=== PATIENT | female | born 1955 | race Caucasian/White ===

== ENCOUNTER 2021-12-04 13:50 | Outpatient (CLI) | payer MEDICARE, BC, SELFPAY ==
[2021-12-04 12:28] LABS: HCT 40.1 % (36.0-46.0); HGB 13.5 g/dL (11.2-15.7); MCH 33.1 pg (27.0-33.0); MCHC 33.7 % (32.0-36.0); MCV 98 fL (80-95); MPV 9.3 fL (8.0-11.0); Platelet Count 102 10^3/uL (130-400); RBC 4.08 10^6/uL (3.93-5.22); RDW 14.9 % (11.7-14.6); RDW-SD 54.2 fL
[2021-12-04 12:32] LABS: Absolute Lymphocyte Count 0.41 10^3/uL (1.2-3.4); Absolute Monocyte Count 0.41 10^3/uL (0.1-0.8); Absolute Neutrophil Count 12.97 10^3/uL (1.2-6.7); Atypical Lymphocytes % 1; Bands % 2; Diff Comment Manual Differential; RBC Morphology Normal
[2021-12-04 12:36] LABS: Ammonia < 10 umol/L (11-32)
[2021-12-04 12:39] LABS: ALT 42 U/L (14-59); AST 18 U/L (15-37); Albumin 3.1 g/dL (3.4-5.0); Alkaline Phosphatase 57 U/L (46-116); Anion Gap 4.9 mmol/L (3-11); BUN 25 mg/dL (7-18); Bilirubin, Total 0.4 mg/dL (0.2-1.0); CO2 31.1 mmol/L (21.0-32.0); CREATININE 0.6 mg/dL (0.55-1.02); Calcium 8.5 mg/dL (8.5-10.1); Chloride 100 mmol/L (98-107); Estimated GFR 97.71 (mL/min/1.73m2); Glucose 92 mg/dL (74-106); Potassium 4.1 mmol/L (3.5-5.1); Sodium 136 mmol/L (136-145); Total Protein 6.1 g/dL (6.4-8.2)
[2021-12-04 12:44] LABS: VALPROIC ACID 62.4 ug/mL
--- OUTSIDE RECORDS SUMMARY | 2021-12-04 13:54 | XMS_ITS | Encounter Summary ---
:1955 Author Organization [facility] [place] [address] Care Team Providers Name Role Phone Viki Elaine Primary Care Provider [phone] Encounter Details Date Type Department Care Team Description 12/03/2021 TH Visit Hematology and Oncology Deion Baumann MD Glioblastoma (TeleHealth) at [facility] [place] [address] [place] [address] [phone] (Wo rk) Social History Tobacco Use Types Packs/Day Years Used Date Never Smoker Smokeless Tobacco: Never Used Alcohol Use Standard Drinks/Week Comments Not Currently 0 (1 standard drink = 0.6 oz pure alcoho l) rarely Alcohol Habits Answer Date Recorded How often do you have a drink containing alcohol? Not asked How many drinks containing alcohol do you have on a typical Not asked day when you are drinking? How often do you have six or more drinks on one occasion? No t asked Comment: rarely 01/07/2021 Financial Resource Strain Answer Date Recorded How hard is it for you to pay for the very basics like Not h keke at all 10/21/2021 food, housing, medical care, and heating? Food Insecurity Answer Date Recorded Within the past 12 months, you worried that your food would Never true 10/21/2021 run out before you got money to buy more. Within the past 12 months, the food you bought just didn't N ever true 10/21/2021 last and you didn't have money to get more. Transportation Needs Answer Date Recorded In the past 12 months, has lack of transportation kept you f rom No 10/21/2021 medical appointments or from getting medications? In the past 12 months, has lack of transportation kept you f rom No 10/21/2021 meetings, work, or getting things needed for daily living? Housing Stability Answer Date Recorded In the last 12 months, was there a time when you were not ab le No 10/21/2021 to pay the mortgage or rent on time? In the last 12 months, how many places have you lived? 1 10/21/2021 In the last 12 months, was there a time when you did not hav e a No 10/21/[address] or slept in a snf (including now)? Sex Assigned at Date Recorded Not on file documented as of this encounter Last Filed Vital Signs Vital Sign Reading Time Taken Comments Blood Pressure 114/60 12/03/2021 10:03 AM EDT Pulse 70 12/03/2021 10:03 AM EDT Temperature 35.6 ??C (96 ??F) 12/03/2021 10:03 AM EDT Respiratory Rate 18 12/03/2021 10:03 AM EDT Oxygen Saturation 99% 12/03/2021 10:03 AM EDT Inhaled Oxygen Concentration - - Weight 68.3 kg (150 lb 9.6 oz) 12/03/2021 10:03 AM EDT Height 160.4 cm (5' 3.15) 12/03/2021 10:03 AM EDT Body Mass Index 26.55 12/03/2021 10:03 AM EDT documented in this encounter Plan of Treatment Upcoming Encounters Date Type Specialty Care Team Description 12/07/2021 Scheduled View Only Radiation Oncology 12/08/2021 Scheduled View Only Radiation Oncology 12/09/2021 Scheduled View Only Radiation Oncology 12/10/2021 Scheduled View Only Radiation Oncology 12/11/2021 Scheduled View Only Radiation Oncology 12/14/2021 Scheduled View Only Radiation Oncology 12/15/2021 Scheduled View Only Radiation Oncology 12/15/2021 TH Visit (TeleHealth) Hematology and Marija Baumann MD Oncology [facility] HEMATOLOGY ONCOL [place], [place] [address] (Wo rk) 12/16/2021 Scheduled View Only Radiation Oncology 12/17/2021 Scheduled View Only Radiation Oncology 12/18/2021 Scheduled View Only Radiation Oncology 12/18/2021 Infusion Hematology and Oncology 12/21/2021 Scheduled View Only Radiation Oncology 12/22/2021 Scheduled View Only Radiation Oncology Scheduled Orders Name Type Priority Associated Diagnoses Order S chedule CBC (with Diff) Lab Routine Glioblastoma Once a week for 100 Occurrences sta rting 12/03/2021 unti l 12/03/2022 Comprehensive metabolic Lab Routine Glioblastoma Once a week for 100 panel (non-fasting) Occurren nicole starting 12/03/2021 unti l 12/03/2022 Valproic Acid Level, Total Lab Routine Glioblastoma O nce a week for 100 Occurrences sta rting 12/03/2021 unti l 12/03/2022 Ammonia Lab Routine Glioblastoma Once a week for 100 Occurrences sta rting 12/03/2021 unti l 12/03/2022 documented as of this encounter Visit Diagnoses Diagnosis Glioblastoma Malignant neoplasm of brain, unspecified site documented in this encounter Care Teams Senior Loss Control Specialist Relationship Specialty Start Date End Date Viki Elaine PA PCP - General Internal Medicine 12/04/[address] [place] [address] [place] [address] documented as of this encounter
--- OUTSIDE RECORDS SUMMARY | 2021-12-04 13:54 | XMS_ITS | Encounter Summary ---
:1955 Author Organization [facility] [place] [address] Care Team Providers Name Role Phone Viki Elaine Primary Care Provider [phone] Encounter Details Date Type Department Care Team Description 12/03/2021 Travel Social History Tobacco Use Types Packs/Day Years [...] place to sleep or slept in a penitentiary (including now)? Sex Assigned at Date Recorded Not on file documented as of this encounter Plan of Treatment Upcoming Encounters [...] (TeleHealth) Hematology and Marija Baumann MD Oncology [facility] HEMATOLOGY ONCOL [place], [place] [address] (Wo rk) 12/16/2021 Scheduled View Only Radiation Oncology 12/17/2021 Scheduled View Only Radiation Oncology 12/18/2021 Scheduled View Only Radiation Oncology 12/18/2021 Infusion Hematology and Oncology 12/21/2021 Scheduled View Only Radiation Oncology 12/22/2021 Scheduled View Only Radiation Oncology documented as of this encounter Visit Diagnoses Not on filedocumented in this encounter Care Teams Cost Accounting Clerk Relationship Specialty Start Date End Date Viki Elaine PA PCP - General Internal Medicine 12/04/[address] [place] [address] [place] [address] documented as of this encounter
--- OUTSIDE RECORDS SUMMARY | 2021-12-04 13:54 | XMS_ITS | Encounter Summary ---
:1955 Author Organization [facility] [place] [address] Care Team Providers Name Role Phone Viki Elaine Primary Care Provider [phone] Reason for Visit Consultation (Routine) - Authorized Specialty Diagnoses / Procedures Referred By Contact Refer red To Contact Radiation Oncology Diagnoses Brain tumor Vinay Mercado MD [facility] Procedures Simulation for Radiation Therapy Planning [address] [place] [address] [place] [id number] Referral ID Status Reason Start Date Expiration Visits Visits Date Requested Authorized [id number] Authorized Consult, 10/15/2021 02/05/2022 30 30 Test & Treat Encounter Details Date Type Department Care Team Description 10/21/2021 Ancillary Appointment Radiation Oncology at Marcy Mercado [facility] [place] MD [address] [place] [address] RADIATION ONCOL [place] [address] [place], [place] [phone] (Wo rk) Social History Tobacco Use Types [...] place to sleep or slept in a correction (including now)? Sex Assigned at Date Recorded Not on file documented as of this encounter Progress Notes Marisa Sylvester MD - 10/21/2021 1:00 PM EDT Simulation Note for External Beam Radiation Treatment Planning [facility] Homero Cardona is a 66 y.o. year old female with glioblastoma who was simulated for palliative radiotherapy to the brain today. No changes were made from the plan as documented in the original simulation order and instructions. After confirming informed consent was signed, she immobilized using an aquaplast mask and a 1.25mm slice thickness CT scan of the patient's head was then obtained. This scan was performed to delineate both target volumes and organs/structures at risk. These images will be used to create a customized tr eatment plan employing multileaf collimators and beams-eye view to treat the target to prescription dose while maximally sparing organs at risk, with the overall goal of maximizing the likelihood of a favorable disease response while minimizing the likelihood of any short term side effects or detention complications of therapy. I anticipate her prescription dose will be 40 Gy delivered in 15 fx. The patient tolerated this procedure well, and was provided instructions with regard to upcoming appointments. Matilde Sylvester MD PGY3 Attending MD Attestation: I was present for the above procedure, personally reviewed and approved of the images with the patient still in the simulation room. I agree with the details as written above. Vinay Mercado MD, MS Beta Tester Radiation Oncology documented in this encounter Plan of Treatment [...] (TeleHealth) Hematology and Marija Baumann MD Oncology [facility] HEMATOLOGY ONCOL [place], [place] [address] (Wo rk) 12/16/2021 Scheduled View Only Radiation Oncology 12/17/2021 Scheduled View Only Radiation Oncology 12/18/2021 Scheduled View Only Radiation Oncology 12/18/2021 Infusion Hematology and Oncology 12/21/2021 Scheduled View Only Radiation Oncology 12/22/2021 Scheduled View Only Radiation Oncology Scheduled Orders Name Type Priority Associated Diagnoses Order S chedule Simulation for Radiation Procedures Routine Brain tumor Ord ered: 10/14/2021 Therapy Planning documented as of this encounter Visit Diagnoses Not on filedocumented in this encounter Care Teams Edge Bander Operator Relationship Specialty Start Date End Date Viki Elaine PA PCP - General Internal Medicine 12/04/[address] [place] [address] [place] [address] documented as of this encounter
--- OUTSIDE RECORDS SUMMARY | 2021-12-04 13:54 | XMS_ITS | Encounter Summary ---
:1955 Author Organization [facility] [place] [address] Care Team Providers Name Role Phone Viki Elaine Primary Care Provider [phone] Encounter Details Date Type Department Care Team Description 10/16/2021 Telephone Neurosurgery at [facility] Monserrat Flores, [place] [address] Social History Tobacco Use Types Packs/Day Years [...] place to sleep or slept in a fpc (including now)? Sex Assigned at Date Recorded Not on file documented as of this encounter Miscellaneous Notes Telephone Encounter - Monserrat Flores RN - 10/16/2021 3:55 PM EDT Lorin Cardona 1955 66 y.o. [id number] F/U call s/p 10/13/2021: Real Singh MD: LEFT stereotactic biopsy Date of discharge: 10/14/21 Date of call: 10/16/21 Neuro: alert and oriented: yes Dizzy or lightheaded: denies Numbness/tingling/weakness: denies Ambulation: uses walker in the home Vision: same, Difficulty reading and focusing Speech: clear Hearing: normal Pain: no pain, occasionally some fuzziness in her head PO: doesn't have a good appetite but eating meals throughout the day B&B: working towards having a BM, urinating normally Sleep: normal documented in this encounter Plan of Treatment [...] (TeleHealth) Hematology and Marija Baumann MD Oncology [facility] HEMATOLOGY ONCOL [place], [place] [address] (Wo rk) 12/16/2021 Scheduled View Only Radiation Oncology 12/17/2021 Scheduled View Only Radiation Oncology 12/18/2021 Scheduled View Only Radiation Oncology 12/18/2021 Infusion Hematology and Oncology 12/21/2021 Scheduled View Only Radiation Oncology 12/22/2021 Scheduled View Only Radiation Oncology documented as of this encounter Visit Diagnoses Not on filedocumented in this encounter Care Teams Construction Job Titles Relationship Specialty Start Date End Date Viki Elaine PA PCP - General Internal Medicine 12/04/[address] [place] [address] [place] [address] documented as of this encounter
--- OUTSIDE RECORDS SUMMARY | 2021-12-04 13:54 | XMS_ITS | Encounter Summary ---
:1955 Author Organization [facility] [place] [address] Care Team Providers Name Role Phone Viki Elaine Primary Care Provider [phone] Reason for Visit Reason Onset Date Comments Other 12/03/2021 Encounter Details Date Type Department Care Team Description 12/03/2021 Telephone Hematology and Oncology at Jessica Wallace RN Other [facility] [place] [address] Social History Tobacco Use Types Packs/Day [...] this encounter Miscellaneous Notes Telephone Encounter - Jessica Fowler RN - 12/03/2021 12:09 PM EDT Per Marija Baumann MD: Thank you for helping me see Lorin today via video at [facility]. ?? She looks like she recovered quite abit after the status epilepitcus hospitalization and rehab. ??No short term memory (fornix involvement), and some spatial drift, but walking, talking and eating. 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 ??She is post diagnostic biopsy on 10/13/2021. ??She had started hypofractionated concurrent radiation and temozolomide under the guidance of Dr. Mercado ([place], [place]) and Dr. Bynum ([facility]), on 11/04. ?? Unfortunately, she developed status epilepticus and was admitted to [facility] on 11/04/2021. ??She last got Avastin on 10/06 and remained on increased dexamethasone 6 mg BID since. Her anti-seizure medicaiton is Keppra 1500 mg BID and Depakote 375 BID. We will plan on restarting XRT today and temodar tonight. ??She has the 3 week supply from [facility] before. We will re-start bevacizumab tomorrow (thank you Irma!). ??Orders are in and signed. I have asked her to do weekly labs at [facility] on Tuesday. Hi Paris Can you help me: ?? (1) send lab orders in. ??I will do cbc, cmp, depakote level and ammonia each time (to be cautious).??Orders in soon after next visit. (2) work with Majo and see if we can get [facility] to help us with 45 min televisit with her weekly x 2 (next week and week after). (3) we will decide on dex taper next week pending tolerance post Avastin Chilango Lopez, Can you help call with lab okay to keep going by phone (no my ) [phone] (Tang) Keep an eye out. ??They are at high risk of seizures and decline. ??Gave 15# Ativan. ??Had an honestprognosis discussion with before. ??Said if we can make median of 10 months with hypofrac XRT + temodar, we did well. I have asked them to try to get computer to setup video telehealth, otherwise it is going to tough to keep them on schedule. ?? Chilango Doss - can you see if you can help them bridge the technologic challenge to getting to telehealth visit? ??They live very far from here to travel here. Spoke w/ pt's sister in law who was in car w/ pt and spouse. Plan from above reviewed- resume temodar 140mg daily. She had questions about the administration which were answered to her apparent satisfaction. They are aware to have labs drawn on Fridays and to call w/ any concerns/questions. documented in this encounter Plan of Treatment [...] (TeleHealth) Hematology and Marija Baumann MD Oncology [facility] HEMATOLOGY ONCOL [place], [place] [address] (Wo rk) 12/16/2021 Scheduled View Only Radiation Oncology 12/17/2021 Scheduled View Only Radiation Oncology 12/18/2021 Scheduled View Only Radiation Oncology 12/18/2021 Infusion Hematology and Oncology 12/21/2021 Scheduled View Only Radiation Oncology 12/22/2021 Scheduled View Only Radiation Oncology documented as of this encounter Visit Diagnoses Not on filedocumented in this encounter Care Teams Contact Center Manager Relationship Specialty Start Date End Date Viki Elaine PA PCP - General Internal Medicine 12/04/[address] [place] [address] [place] [address] documented as of this encounter
--- OUTSIDE RECORDS SUMMARY | 2021-12-04 13:54 | XMS_ITS | Encounter Summary ---
:1955 Author Organization [facility] [place] [address] Care Team Providers Name Role Phone Viki Elaine Primary Care Provider [phone] Encounter Details Date Type Department Care Team Description 11/03/2021 Notes Only Radiation Oncology at [facility], Ralph Orozco RN [address] [phone] Social History Tobacco Use Types Packs/Day Years [...] place to sleep or slept in a care home (including now)? Sex Assigned at Date Recorded Not on file documented as of this encounter Progress Notes Ralph Hernandez RN - 11/03/2021 10:28 AM EDTSummary: Patient Education Met with patient and her Randy after treatment who still had questions and confusion about new medication Temodar. Printed material was given from [employer] and reviewed with patient. Radiation schedule was also adjusted to accommodate easier medication dosing times. Patient and understand medication is an adjunct therapy for cancer treatment and will be given an hour before radiation treatment. Patient will eat breakfast then take Zofran 30 min's prior to her Temodar dose. Randy and patient understand now that this is dependant on the time of her radiation therapy. All questions were answered and patient and feel they have a better understanding. documented in this encounter Plan of Treatment Upcoming Encounters Date Type Specialty Care Team Description 12/07/2021 Scheduled View Only Radiation Oncology 12/08/2021 Scheduled View Only Radiation Oncology 12/09/2021 Scheduled View Only Radiation Oncology 12/10/2021 Scheduled View Only Radiation Oncology 12/11/2021 Scheduled View Only Radiation Oncology 12/14/2021 Scheduled View Only Radiation Oncology 12/15/2021 Scheduled View Only Radiation Oncology 12/15/2021 TH Visit (TeleHealth) Hematology and BaumannMarija MD Oncology [facility] H[place]ATOLOGY [place], [place] [address] (Wo rk) 12/16/2021 Scheduled View Only Radiation Oncology 12/17/2021 Scheduled View Only Radiation Oncology 12/18/2021 Scheduled View Only Radiation Oncology 12/18/2021 Infusion Hematology and Oncology 12/21/2021 Scheduled View Only Radiation Oncology 12/22/2021 Scheduled View Only Radiation Oncology documented as of this encounter Visit Diagnoses Not on filedocumented in this encounter Care Teams Divorce Lawyer Relationship Specialty Start Date End Date Viki Elaine PA PCP - General Internal Medicine 12/04/[address] [place] [address] [place] [address] documented as of this encounter
--- OUTSIDE RECORDS SUMMARY | 2021-12-04 13:54 | XMS_ITS | Encounter Summary ---
:1955 Author Organization [facility] [place] [address] Care Team Providers Name Role Phone Viki Elaine Primary Care Provider [phone] Encounter Details Date Type Department Care Team Description 11/03/2021 Ancillary Procedure Radiology Library at Vinay Mercado MD [address] [facility] [place] [address] [phone] (Wo rk) Social History Tobacco Use Types [...] place to sleep or slept in a nursing home (including now)? Sex Assigned at Date [...] (TeleHealth) Hematology and Marija Baumann MD Oncology [facility] HEMATOLOGY ONCOL [place], [place] [address] (Wo rk) 12/16/2021 Scheduled View Only Radiation Oncology 12/17/2021 Scheduled View Only Radiation Oncology 12/18/2021 Scheduled View Only Radiation Oncology 12/18/2021 Infusion Hematology and Oncology 12/21/2021 Scheduled View Only Radiation Oncology 12/22/2021 Scheduled View Only Radiation Oncology documented as of this encounter Procedures Procedure Name Priority Date/Time Associated Diagnosis Comme nts FILM LIBRARY Routine 11/03/2021 12:00 AM Results for this STORAGE ONLY CT EDT procedure valerie cid in HEAD the results section. documented in this encounter Results Film Library- Storage Only CT Head (11/03/2021 12:00 AM EDT) Specimen (Source) Anatomical Location Collection Method / Collectio n Time Received Time / Laterality Volume Narrative [facility] - 11/04/2021 1:14 AM EDT This exam is auto-finalizing. It's purpo se is for storage only. Vinay Mercado MD IMG FILM LIBRARY ORDERABLES Performing Organization Address City/State/ZIP Code Phon e Number [facility] [place], [place] documented in this encounter Visit Diagnoses Not on filedocumented in this encounter Care Teams Principal Security Architect Relationship Specialty Start Date End Date Viki Elaine PA PCP - General Internal Medicine 12/04/[address] [place] [address] [place] [address] documented as of this encounter
--- OUTSIDE RECORDS SUMMARY | 2021-12-04 13:54 | XMS_ITS | Encounter Summary ---
:1955 Author Organization [facility] [place] [address] Care Team Providers Name Role Phone Viki Elaine Primary Care Provider [phone] Encounter Details Date Type Department Care Team Description 12/03/2021 Office Visit Radiation Oncology at [facility] Vinay MD [address] [facility] RADIATION ONCOLOGY [facility] [id number] [phone] Social History Tobacco Use Types Packs/Day Years [...] place to sleep or slept in a retirement (including now)? Sex Assigned at Date Recorded Not on file documented as of this encounter Progress Notes Vinay Mercado MD - 12/03/2021 12:00 PM EDT Images from the original note were not included. [facility] Medicine Radiation Oncology Radiation Oncology On-treatment Visit Note Patient ID Patient name: Lorin Cardona Date of : 1955 Referring: Dr Singh PCP: INEZ Lindsey Chief complaint: Cancer Staging No matching staging information was found for the patient. Treatment Details Intent: Palliatve Concurrent Therapy: TMZ / avastin (from Dr Baumann) Modality: 3DCRT Treatment Site Brain Prescribed Dose 40 Gy in 15 fractions Current Dose: 5.33 Gy in 2 fractions Lithographic Photographer Rowley from Current Plan: Interval Clinical Course General: Resuming this week. She was hospitalized at 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 Neuro: Discharged on decadron 6mg BID. Starting avastin / TMZ this week - Dr Baumann overseeing. Poor cognition, balance Pain: Pain score today is 0/10. Performance Status KPS Score ECOG Grade Definition 90-100 0 Fully active, able to carry on all pre-disease performance without restriction 70-80 1 Restricted in physically strenuous activity but ambulatory and able to carry out work of a light or sedentary nature, e.g., light house work, office work 50-60 2 Ambulatory and capable of all selfcare but unable to carry out any work activities; up and about more than 50% of waking hours XX 30-40 3 Capable of only limited selfcare; confined to bed or chair more than 50% of waking hours 10-20 4 Completely disabled; cannot carry on any selfcare; totally confined to bed or chair Medications Medications 12/03/21 1019 Medication Sig Taking? divalproex DR Sprinkle (Depakote Sprinkle) 125 mg capsule, delayed rel sprinkle Take 375 mg by mouth2 times daily. sodium chloride 1 gram Tablet Take 1 g by mouth nightly. docusate sodium (Colace) 100 mg Capsule Take 100 mg by mouth once. sulfamethoxazole-trimethoprim DS (Bactrim DS) 800-160 mg Tablet Take 1 tablet by mouth three times aweek (Mon, Weds, Fri). CLOBAZAM 2.5 MG/ML PEDI ORAL SUSPENSION 1 mL nightly. ondansetron ODT (Zofran-ODT) 4 mg Tablet, Rapid Dissolve Take 4 mg by mouth every 8 hours as needed for Nausea. temozolomide (Temodar) 140 mg Capsule Take by mouth daily. Take on an empty stomach. Call clinic before/prior to starting medication/script. pantoprazole EC (Protonix) 20 mg Tablet, Delayed Release (E.C.) Take 1 tablet by mouth daily. levETIRAcetam (Keppra) 500 mg Tablet Take 1 tablet by mouth 2 times daily. Patient taking differently: Take 750 mg by mouth 2 times daily. Taking 1500mg twice daily levothyroxine (Synthroid) 100 mcg Tablet Take 1 tablet by mouth daily. calcium citrate (Calcitrate) 200 mg (950 mg) Tablet Take 1 tablet by mouth daily. Taking 400mg daily acetaminophen (Tylenol) 500 mg Tablet Take 2 tablets by mouth as needed for Pain. calcium carbonate (Tums) 200 mg calcium (500 mg) Tablet, Chewable Take 2 tablets by mouth 3 times daily (after meals). Patient taking differently: Take 500 mg by mouth daily. Taking one tablet once daily diphenhydramine HCl (BENADRYL ALLERGY ORAL) Take by mouth. docosahexaenoic acid/epa (FISH OIL ORAL) Take by mouth daily. Taking 1000mg every other day multivitamin Capsule Take 1 capsule by mouth every other day. ascorbic acid, Vitamin C, (Vitamin C) 500 mg Tablet Take 500 mg by mouth every other day. Exam Vitals: Vitals 12/03/2021 BP 114/60 BP Location Pulse 70 Temp 96 Resp 18 Height (Comoran) Height (Metric) Weight (Comoran) 154 lbs Weight (Metric) 69.854 kg BMI (Calculated) Pulse Oximetry 99 General: Appears well, in no distress. With and sister at side. Neuro: Alert, oriented to self but not time or place Gait unstable - requires support belt Imaging/Labs Interval setup imaging has been checked and approved. See [facility]ria for details. Impression/Plan Tolerance to radiotherapy: Resume RT today as planned. Followup: RTC for on-treatment assessment next week. No orders of the defined types were placed in this encounter. ??? [employer] (N[facility]) Comprehensive Cancer [facility] ??? [employer] Commission on Cancer (ACS [employer]) Accredited Cancer Program ??? [employer] ([employer]) Accredited Radiation Oncology Program documented in this encounter Plan of Treatment [...] Hematology and Marija Baumann MD Oncology [facility] HEMATOLOGY ONCOL [place], [place] [address] (Wo rk) 12/16/2021 Scheduled View Only Radiation Oncology 12/17/2021 Scheduled View Only Radiation Oncology 12/18/2021 Scheduled View Only Radiation Oncology 12/18/2021 Infusion Hematology and Oncology 12/21/2021 Scheduled View Only Radiation Oncology 12/22/2021 Scheduled View Only Radiation Oncology documented as of this encounter Visit Diagnoses Diagnosis Glioblastoma Malignant neoplasm of brain, unspecified site documented in this encounter Care Teams Business Risk Consultant Relationship Specialty Start Date End Date Viki Elaine PA PCP - General Internal Medicine 12/04/[address] [place] [address] [place] [address] documented as of this encounter
--- OUTSIDE RECORDS SUMMARY | 2021-12-04 13:54 | XMS_ITS | Encounter Summary ---
:1955 Author Organization [facility] [place] [address] Care Team Providers Name Role Phone Viki Elaine Primary Care Provider [phone] Encounter Details Date Type Department Care Team Description 10/26/2021 Telephone Neurosurgery at [facility] Cindy Montoya [facility] [place] [address] Social History Tobacco Use Types Packs/Day [...] place to sleep or slept in a fdc (including now)? Sex Assigned at Date Recorded Not on file documented as of this encounter Miscellaneous Notes Telephone Encounter - Franci Young RN - 10/26/2021 5:01 PM EDT Lorin Snider Brendan [id number] 1955 Caller: Tang () Reason for call: she has only 7 days left of Dexamethasone-wondering if it needs to be refilled. Plan: She is seeing an oncologist at [facility] tomorrow I advised they discuss her continuing to take the Dexamethasone with the oncologist. They should refill if they want her to continue taking it or to taper off it. Telephone Encounter - Cindy Montoya - 10/26/2021 4:29 PM EDT Caller: Family member If not the patient: Name of caller: Tang Relationship to patient: Personal Rep on file?: with patient Best time to reach caller: [facility] Best number to reach caller: [phone] Reason for call: Tang calling to clarify if dexamethasone is supposed to be refilled Recent Surgery?: 10/13/2021 If after 4:00 pm: Inform caller that if the nurse does not call back by the end of the day, they will be called in the AM of the next business day. documented in this encounter Plan of Treatment [...] (TeleHealth) Hematology and Marija Baumann MD Oncology [facility] HEMATOLOGY [place], [place] [address] (Wo rk) 12/16/2021 Scheduled View Only Radiation Oncology 12/17/2021 Scheduled View Only Radiation Oncology 12/18/2021 Scheduled View Only Radiation Oncology 12/18/2021 Infusion Hematology and Oncology 12/21/2021 Scheduled View Only Radiation Oncology 12/22/2021 Scheduled View Only Radiation Oncology documented as of this encounter Visit Diagnoses Not on filedocumented in this encounter Care Teams Salesperson Automobiles Relationship Specialty Start Date End Date Viki Elaine PA PCP - General Internal Medicine 12/04/[address] [place] [address] [place] [address] documented as of this encounter
--- OUTSIDE RECORDS SUMMARY | 2021-12-04 13:54 | XMS_ITS | Encounter Summary ---
:1955 Author Organization [facility] [place] [address] Care Team Providers Name Role Phone Viki Elaine Primary Care Provider Encounter Details Date Type Department Care Team Description 10/14/2021 Telephone Neurosurgery at [facility] Real Singh MD [facility] [place] [address] NEUROSURGERY [phone] [place], [place] [address] (Wo rk) Social History Tobacco Use Types [...] this encounter Miscellaneous Notes Telephone Encounter - Rekha Alvarado - 10/15/2021 9:50 AM EDT Called pt confirmed appt and completed Telmed Consent Telephone Encounter - Rekha Alvarado - 10/14/2021 11:22 AM EDT Images from the original note were not included. Scheduled 10/27 TOV with SOHAN Need to get Telemed consent done once pt is d/c ~~~~~~~~~~~~~~~~~~~~~~~~~~~~~ Elida Thompson PA P [facility] Neurosurgery Roll Picker Lorin Cardona needs a TOV with Dr. Singh in approximately 10days. No imaging needed prior. Thanks. documented in this encounter Plan of Treatment [...] (TeleHealth) Hematology and Marija Baumann MD Oncology [facility] HEMATOLOGY ONCOL [place], [place] [address] (Wo rk) 12/16/2021 Scheduled View Only Radiation Oncology 12/17/2021 Scheduled View Only Radiation Oncology 12/18/2021 Scheduled View Only Radiation Oncology 12/18/2021 Infusion Hematology and Oncology 12/21/2021 Scheduled View Only Radiation Oncology 12/22/2021 Scheduled View Only Radiation Oncology documented as of this encounter Visit Diagnoses Not on filedocumented in this encounter Care Teams Acquisition Consultant Relationship Specialty Start Date End Date Viki Elaine PA PCP - General Internal Medicine 12/04/[address] [place] [address] [place] [address] documented as of this encounter
--- OUTSIDE RECORDS SUMMARY | 2021-12-04 13:54 | XMS_ITS | Encounter Summary ---
:1955 Author Organization [facility] [place] [address] Care Team Providers Name Role Phone Viki Elaine Primary Care Provider [phone] Encounter Details Date Type Department Care Team Description 12/04/2021 Infusion Hematology Oncology at [address] [phone] Social History Tobacco Use [...] place to sleep or slept in a [place] (including now)? Sex Assigned at Date Recorded Not on file documented as of this encounter Last Filed Vital Signs Vital Sign Reading Time Taken Comments Blood Pressure 116/63 12/04/2021 1:50 PM EDT Pulse 63 12/04/2021 1:50 PM EDT Temperature 35.6 ??C (96.1 ??F) 12/04/2021 1:50 PM EDT Respiratory Rate 16 12/04/2021 1:50 PM EDT Oxygen Saturation 100% 12/04/2021 1:50 PM EDT Inhaled Oxygen Concentration - - Weight 69.9 kg (154 lb) 12/04/2021 1:50 PM EDT Height - - Body Mass Index 27.15 12/03/2021 10:03 AM EDT documented in this [...] (TeleHealth) Hematology and Marija Baumann MD Oncology [facility] HEMATOLOGY ONCOL [place], [place] [address] (Wo rk) 12/16/2021 Scheduled View Only Radiation Oncology 12/17/2021 Scheduled View Only Radiation Oncology 12/18/2021 Scheduled View Only Radiation Oncology 12/18/2021 Infusion Hematology and Oncology 12/21/2021 Scheduled View Only Radiation Oncology 12/22/2021 Scheduled View Only Radiation Oncology documented as of this encounter Visit Diagnoses Not on filedocumented in this encounter Care Teams Supervisor Chassis Assembly Relationship Specialty Start Date End Date Viki Elaine PA PCP - General Internal Medicine 12/04/[address] [place] [address] [place] [address] documented as of this encounter
--- OUTSIDE RECORDS SUMMARY | 2021-12-04 13:54 | XMS_ITS | Encounter Summary ---
:1955 Author Organization [facility] [place] [address] Care Team Providers Name Role Phone Viki Elaine Primary Care Provider [phone] Encounter Details Date Type Department Care Team Description 11/04/2021 Ancillary Procedure Radiology Library at Corrina Elaine [facility] INEZ Abraham [address] [place] [address] [place] [address] [phone] (Wo rk) Social History Tobacco Use Types [...] place to sleep or slept in a long term (including now)? Sex Assigned at Date Recorded [...] [facility]OLOGY [place], [place] [address] (Wo rk) 12/16/2021 Scheduled View Only Radiation Oncology 12/17/2021 Scheduled View Only Radiation Oncology 12/18/2021 Scheduled View Only Radiation Oncology 12/18/2021 Infusion Hematology and Oncology 12/21/2021 Scheduled View Only Radiation Oncology 12/22/2021 Scheduled View Only Radiation Oncology documented as of this encounter Procedures Procedure Name Priority Date/Time Associated Diagnosis Comme nts FILM LIBRARY Routine 11/04/2021 12:00 AM Results for this STORAGE ONLY MR EDT procedure ar e in HEAD the results section. documented in this encounter Results Film Library- Storage Only MR Head (11/04/2021 12:00 AM EDT) Specimen (Source) Anatomical Location Collection Method / Collectio n Time Received Time / Laterality Volume Narrative [facility] - 11/05/2021 3:31 PM EDT This exam is auto-finalizing. It's purpo se is for storage only. Viki WILEY IMTyshawn FILM LIBRARY ORDERABLES Performing Organization Address City/State/ZIP Code Phon e Number RAD [place], [place] documented in this encounter Visit Diagnoses Not on filedocumented in this encounter Care Teams Recoil Spring Winder Relationship Specialty Start Date End Date Viki Elaine PA PCP - General Internal Medicine 12/04/[address] [place] [address] [place] [address] documented as of this encounter
--- OUTSIDE RECORDS SUMMARY | 2021-12-04 13:54 | XMS_ITS | Encounter Summary ---
:1955 Author Organization [facility] [place] [address] Care Team Providers Name Role Phone Viki Elaine Primary Care Provider [phone] Reason for Referral Consultation (Routine) - Authorized Specialty Diagnoses / Procedures Referred By Contact Refer red To Contact Radiation Oncology Diagnoses Brain tumor Vinay Mercado MD [facility] Rad Onc Office Procedures Simulation for Radiation Therapy Planning [address] [place] [address] [place] [id number] Referral ID Status Reason Start Date Expiration Visits Visits Date Requested Authorized [id number] Authorized Consult, 10/15/2021 02/05/2022 30 30 Test & Treat Encounter Details Date Type Department Care Team Description 10/14/2021 Orders Only Radiation Oncology at Vinay Mercado MD Brain tumor [address] RADIATION ONCOLOGY [facility] [phone] Social History Tobacco Use Types Packs/Day Years [...] place to sleep or slept in a prison (including now)? Sex Assigned at Date Recorded [...] MD Oncology [facility] HEMATOLOGY ONCOL [place], [place] [address] (Wo rk) 12/16/2021 Scheduled View [...] as of this encounter Visit Diagnoses Diagnosis Brain tumor Neoplasm of unspecified nature of brain documented in this encounter Care Teams Asset Protection Professional Relationship Specialty Start Date End Date Viki Elaine PA PCP - General Internal Medicine 12/04/[address] [place] [address] [place] [address] documented as of this encounter
--- OUTSIDE RECORDS SUMMARY | 2021-12-04 13:54 | XMS_ITS | Continuity of Care Document ---
:[address] [facility] Address [address] [place] [address] Care Team Providers Name Role Phone Viki Elaine Primary Care Physician Encounter [facility]CT[facility]_[place] Date(s): 11/03/21 - 11/04/21 [facility] [address] [place] [address] Encounter Diagnosis Seizure (Discharge Diagnosis) - 11/03/21 Discharge Disposition: Transfer to Higher Level of Care Attending Physician: Keily Atkinson MD Admitting Physician: Keily Atkinson MD Allergies, Adverse Reactions, Alerts No Known Medication Allergies Assessment and Plan Future AppointmentsDiagnostic Tests PendingUrine Culture 11/03/21 Future Scheduled TestsRadiologyMG Mammo Screening Bilateral w/ Leonard 09/30/21MRI Brain w/ + w/o Contrast 09/24/21 Functional Status 11/03/21 Family Member Travel History No recent travel Recent Travel History No recent travel Other exposure to Infectious Disease None Immunizations Given and Recorded Vaccine Date Status Refusal Reason influenza virus vaccine, inactivated1 10/28/21 Recorded influenza virus vaccine, inactivated 11/18/16 Recorded influenza virus vaccine, inactivated 12/19/15 Recorded influenza virus vaccine, inactivated 12/20/14 Recorded influenza virus vaccine, inactivated 12/14/13 Recorded influenza virus vaccine, inactivated 01/14/12 Recorded influenza virus vaccine, inactivated 01/16/10 Recorded SARS-CoV-2 mRNA (tozinameran 5y-11y) vac2 09/13/21 Record ed zoster vaccine, inactivated3 08/04/21 Recorded zoster vaccine, inactivated4 03/13/21 Recorded SARS-CoV-2 (COVID-19) mRNA-1273 vaccine 12/10/20 Recorded SARS-CoV-2 (COVID-19) mRNA-1273 vaccine 05/12/20 Recorded SARS-CoV-2 (COVID-19) mRNA-1273 vaccine 04/15/20 Recorded influenza, unspecified formulation 11/24/20 Recorded pneumococcal 23-polyvalent vaccine5 09/03/19 Recorded pneumococcal 13-valent conjugate vaccine 07/31/18 Recorde d tetanus/diphth/pertuss (Tdap) adult/adol 07/04/14 Recorde d tetanus-diphth toxoids (Td) adult/adol 02/24/04 Recorded varicella virus vaccine 02/08/00 Recorded 1Result Comment: left arm, Ruth.2Result Comment: CHEY Clements3Result Comment: CHEY Clements4Result Comment: Yazmin Menchaca5Result Comment: skin cleansed Medications calcium (as carbonate)-vitamin D 500 mg-600 intl units oral tablet 2 tab, Oral, Daily, 0 Refill(s) Start Date: 09/23/21 Status: Orderedcalcium carbonate 500 mg (200 mg elemental calcium) oral tablet, chewable 2 tab, Oral, TID, 0 Refill(s) Start Date: 09/23/21 Status: Ordereddexamethasone 4 mg oral tablet 4 mg = 1 tab, Oral, BID, # 180 tab, 0 Refill(s) Start Date: 10/28/21 Stop Date: 01/26/22 Status: OrderedFish Oil oral capsule 1 cap, Oral, every other day, 0 Refill(s) Start Date: 09/23/21 Status: OrderedFlonase Allergy Relief 50 mcg/inh nasal spray 1 sprays, Nasal - Both Sides, Daily, 0 Refill(s) Start Date: 09/23/21 Status: OrderedKeppra 500 mg oral tablet 500 mg = 1 tab, Oral, BID, # 180 tab, 0 Refill(s) Start Date: 10/28/21 Stop Date: 01/26/22 Status: Orderedlevothyroxine 100 mcg (0.1 mg) oral tablet 100 mcg = 1 tab, Oral, Daily, # 90 tab, 0 Refill(s) Start Date: 09/24/21 Status: Orderedmultivitamin adult, oral tablet 1 tab, Oral, Daily, 0 Refill(s) Start Date: 09/23/21 Status: Orderedondansetron 8 mg oral tablet, disintegrating 0 Refill(s) Start Date: 10/29/21 Status: Orderedpantoprazole 20 mg oral delayed release tablet 20 mg = 1 tab, Oral, Daily Start Date: 10/29/21 Status: OrderedPriLOSEC OTC 20 mg oral delayed release tablet 1 tab, Oral, Daily, 0 Refill(s) Start Date: 09/23/21 Status: Orderedsodium chloride 1 g oral tablet 1 g = 1 tab, Oral, Daily, # 14 tab, 0 Refill(s), [facility]acy: [id number], 162, cm, 10/09/21 9:05:00 EDT, Height/Length Dosing, 70.31, kg, 10/09/21 9:05:00 EDT, Weight Dosing Start Date: 10/28/21 Stop Date: 11/11/21 Status: Orderedsulfamethoxazole-trimethoprim 800 mg-160 mg oral tablet 0 Refill(s) Start Date: 10/29/21 Status: OrderedVitamin C 1 tab, Oral, every other day, 0 Refill(s) Start Date: 09/23/21 Status: Ordered Problem List Condition Effective Dates Status Health Status Informant Atrophic vaginitis(Confirmed) Active Chronic sinusitis(Confirmed) Active Dizziness and giddiness(Confirmed) Active Glioblastoma(Confirmed) Active Hypothyroidism(Confirmed) Active Kidney stone(Confirmed) Active Menopause present(Confirmed) Active Migraine(Confirmed) Active Osteopenia(Confirmed) 09/04/18 Active Overweight(Confirmed) Active 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 De Dios) and central/left neck dissection: Multifocal PTC, largest focus left lobe 3.9 cm positive focal angioinvasion (less than 4 vessels), positive lymphatic invasion, 10/30 lymph nodes positive (levels and possible IV) largest focus 1.5 cm. 04/17/2021 80 [facility] I???131,post therapy scan no metastasis. Procedures Procedure Date Related Diagnosis Body Site Status Thyroidectomy (procedure)1 01/07/21 C ompleted Mammogram2 10/08/20 Completed PAP smear preparation3 09/02/19 Compl eted Bone density4 08/31/14 Completed Colonoscopy 04/03/14 Completed Introduction of tension free vaginal 08/12/05 Completed tape Excision of mass5 Completed Tonsillectomy Completed 1Left neck dissection, thyroid [id number] Category: 1 [id number] HPV- Repeat in 5 [id number] mass excision right Results Laboratory List Name Date SARS-CoV-2 (COVID-19) RNA (ID Now) 11/04/21 Urinalysis with Micro if Indicated and Culture if Ashely cated 11/03/21 Urinalysis Microscopic 11/03/21 CBC w/ Diff 11/03/21 Comprehensive Metabolic Panel (CMP) 11/03/21 .Manual Differential (NCTY) 11/03/21 Most recent to oldest [Reference Range]: 1 WBC [5.0-10.0 x10^3/mcL] 9.4 x10^3/mcL (11/03/21 8:24 PM) RBC [4.1-5.3 x10^6/mcL] 4.2 x10^6/mcL (11/03/21 8:24 PM) Segs Man [40-75 %] 91 % *HI* (11/03/21 8:24 PM) Lymph Man [20-50 %] 2 % *LOW* (11/03/21 8:24 PM) [place] Man 6 % *NA* (11/03/21 8:24 PM) Eos Man 1 % *NA* (11/03/21 8:24 PM) BUN [7-18 mg/dL] 25 mg/dL *HI* (11/03/21 8:24 PM) UA Color Yellow (11/03/21 8:54 PM) UA WBC [0-3] 3-5 *ABN* (11/03/21 8:54 PM) Glucose Level [74-106 mg/dL] 125 mg/dL *HI* (11/03/21 8:24 PM) Potassium Level [3.5-5.1 mmol/L] 4.7 mmol/L (11/03/21 8:24 PM) MCV [80.0-103.0 fL] 97.1 fL (11/03/21 8:24 PM) UA Urobilinogen Positive *ABN* (11/03/21 8:54 PM) RBC Morph Normal (11/03/21 8:24 PM) UA Bili [Negative] Negative (11/03/21 8:54 PM) UA Ketones Negative (11/03/21 8:54 PM) AST [15-37 unit/L] 17 unit/L (11/03/21 8:24 PM) ALT [16-63 unit/L] 53 unit/L (11/03/21 8:24 PM) MCHC [31.0-35.0 g/dL] 34.1 g/dL (11/03/21 8:24 PM) Sodium Level [136-145 mmol/L] 129 mmol/L *LOW* (11/03/21 8:24 PM) UA RBC [0-2] 0-2 (11/03/21 8:54 PM) UA Leuk Est 1+ *ABN* (11/03/21 8:54 PM) UA Nitrite Negative (11/03/21 8:54 PM) UA Glucose [Negative] Negative (11/03/21 8:54 PM) Hct [37.0-47.0 %] 40.5 % (11/03/21 8:24 PM) UA Bacteria None Seen /HPF (11/03/21 8:54 PM) Calcium Level [8.5-10.1 mg/dL] 8.5 mg/dL (11/03/21 8:24 PM) Albumin Level [3.4-5.0 g/dL] 3.4 g/dL (11/03/21 8:24 PM) Protein Total [6.4-8.2 g/dL] 6.2 g/dL *LOW* (11/03/21 8:24 PM) UA Protein Negative (11/03/21 8:54 PM) MCH [26.0-32.0 pg] 33.1 pg *HI* (11/03/21 8:24 PM) Bilirubin Total [0.2-1.0 mg/dL] 0.7 mg/dL (11/03/21 8:24 PM) Hgb [12.0-16.0 g/dL] 13.8 g/dL (11/03/21 8:24 PM) Alk Phos [46-146 unit/L] 60 unit/L (11/03/21 8:24 PM) UA Blood Negative (11/03/21 8:54 PM) UA Mucous None Seen /HPF (11/03/21 8:54 PM) Band Man [0-5 %] 0 % (11/03/21 8:24 PM) UA Spec Grav 1.010 *NA* (11/03/21 8:54 PM) Platelets [130-450 x10^3/mcL] 89 x10^3/mcL *LOW* (11/03/21 8:24 PM) CO2 [21-32 mmol/L] 26 mmol/L (11/03/21 8:24 PM) UA Squam Epithelial [None Seen] None Seen (11/03/21 8:54 PM) UA pH 7.5 *NA* (11/03/21 8:54 PM) eGFR Non-AA [>=60] 72 (11/03/21 8:24 PM) eGFR AA [>=60] 72 (11/03/21 8:24 PM) UA Appear Clear (11/03/21 8:54 PM) Chloride Level [98-107 mmol/L] 97 mmol/L *LOW* (11/03/21 8:24 PM) RDW-CV [11.7-17.0 %] 14.6 % (11/03/21 8:24 PM) UA Culture Ind?. Indicated (11/03/21 8:54 PM) Abs Neut Man 8.6 x10^3/mcL *NA* (11/03/21 8:24 PM) Creatinine Level [0.55-1.02 mg/dL] 0.88 mg/dL (11/03/21 8:24 PM) SARS-CoV-2 (COVID-19) RNA (ID Now) [Not Detected] Not Detected (11/04/21 12:07 AM) Anion Gap [8-16 mmol/L] 6 mmol/L *LOW* (11/03/21 8:24 PM) Baso Man [0-1 %] 0 % (11/03/21 8:24 PM) Vital Signs Most recent to oldest 1 2 3 [Reference Range]: Temperature Temporal Artery 36.8 Deg C [36-38 Deg C] (11/03/21 7:42 PM) Peripheral Pulse Rate [60-100 61 bpm 62 bpm 63 bpm bpm] (11/04/21 1:20 AM) (11/04/21 12:00 AM) (11/03/21 11 :00 PM) Heart Rate Monitored [60-100 53 bpm 61 bpm 63 bpm bpm] *LOW* (11/04/21 12:00 AM) (11/03/21 11:0 0 PM) (11/04/21 1:20 AM) Respiratory Rate [12-24 18 br/min 18 br/min 18 br/mi n br/min] (11/04/21 1:00 AM) (11/04/21 12:00 AM) (11/03/21 11 :00 PM) Blood Pressure [90-140/60-90 104/66 mmHg 113/54 mmHg 95/ 59 mmHg mmHg] (11/04/21 1:00 AM) (11/03/21 11:00 PM) (11/03/21 10 :00 PM) Weight Dosing 71.30 kg (11/03/21 7:54 PM) Weight Estimated 71.30 kg (11/03/21 7:42 PM) Height/Length Dosing 162.000 cm (11/03/21 7:54 PM) Height/Length Estimated 162.000 cm (11/03/21 7:42 PM) Social History Social History Type Response Tobacco Never tobacco user Tobacco U se:. Sex Female Patient Care team information PersonnelName: Viki Elaine Address: Address: [facility] [address] [address]- [place]
--- OUTSIDE RECORDS SUMMARY | 2021-12-04 13:54 | XMS_ITS | Encounter Summary ---
:1955 [place] [address] Care Team Providers Name Role Phone Viki Elaine Primary Care Provider [phone] Reason for Visit Reason Onset Date Comments Prior Authorization 10/27/2021 Molecular cancer judith tin CPTs 26984, 20999 and 68256 are covered benefits . Encounter Details Date Type Department Care Team Description 10/27/2021 Telephone Revenue Management Daina Saleem or Authorization Division ([facility] testing C PTs [address], [address] [address] and [address] are [place], [place] covered benefit s. ) [id number] Social History Tobacco Use Types Packs/Day Years [...] this encounter Miscellaneous Notes Telephone Encounter - Daina Saleem - 10/27/2021 12:14 PM EDT Molecular cancer testing: CPTs 69250, 28896 and 52490 are covered benefits: I received an e-mail from Starr in [employer] ([employer] 10/20/2021) requesting coverage review for CPTs 93437, 34669 and 89530 which are to be done on the patient???s sample tissue obtained on 10/13/2021, Ordering provider is Real Singh MD. Per a phone call to [facility] ([phone]) the policy is active and in network with [facility]. The [employer] policy follows Medicare guideline so no authorization is required. REF # [id number] - Nicky. I will e-mail Starr to let her know of approved coverage. documented in this encounter Plan of Treatment [...] (TeleHealth) Hematology and Marija Baumann MD Oncology [facility] DR HEMATOLOGY ONCOL [place], [place] [address] (Wo rk) 12/16/2021 Scheduled View Only Radiation Oncology 12/17/2021 Scheduled View Only Radiation Oncology 12/18/2021 Scheduled View Only Radiation Oncology 12/18/2021 Infusion Hematology and Oncology 12/21/2021 Scheduled View Only Radiation Oncology 12/22/2021 Scheduled View Only Radiation Oncology documented as of this encounter Visit Diagnoses Not on filedocumented in this encounter Care Teams Tightening Machine Operator Relationship Specialty Start Date End Date Viki Elaine PA PCP - General Internal Medicine 12/04/[address] [place] [address] [place] [address] documented as of this encounter
--- OUTSIDE RECORDS SUMMARY | 2021-12-04 13:54 | XMS_ITS | Encounter Summary ---
:1955 Author Organization [facility] [place] [address] Care Team Providers Name Role Phone Viki Elaine Primary Care Provider [phone] Encounter Details Date Type Department Care Team Description 10/26/2021 Patient Outreach Mitchel Davis Cancer Alvina Petit, LIZABETH [facility] at [address] [address] Social History Tobacco Use Types Packs/Day Years [...] place to sleep or slept in a assisted (including now)? Sex Assigned at Date Recorded Not on file documented as of this encounter Progress Notes Alvina Petit, RN - 10/26/2021 3:31 PM EDT Reviewed patient with Dr. Morales. He states he has been in contact with his colleague at [facility], that location is closer to home and they are going to see patient. Call placed to patients , Tang to discuss. He states they are scheduled to see the neuro oncologist at [facility] tomorrow andno longer need the appointment in [place]. documented in this encounter Plan of Treatment [...] (TeleHealth) Hematology and Marija Baumann MD Oncology [facility] HEMATOLOGY [place], [place] [address] (Wo rk) 12/16/2021 Scheduled View Only Radiation Oncology 12/17/2021 Scheduled View Only Radiation Oncology 12/18/2021 Scheduled View Only Radiation Oncology 12/18/2021 Infusion Hematology and Oncology 12/21/2021 Scheduled View Only Radiation Oncology 12/22/2021 Scheduled View Only Radiation Oncology documented as of this encounter Visit Diagnoses Not on filedocumented in this encounter Care Teams Orange Grower Relationship Specialty Start Date End Date Viki Elaine PA PCP - General Internal Medicine 12/04/[address] [place] [address] [place] [address] documented as of this encounter
--- OUTSIDE RECORDS SUMMARY | 2021-12-04 13:54 | XMS_ITS | Encounter Summary ---
:1955 Author Organization [facility] [place] [place] [address] Care Team Providers Name Role Phone Viki Elaine Primary Care Provider [phone] Encounter Details Date Type Department Care Team Description 12/03/2021 Orders Only Hematology and Oncology at BaumannMarija MD [facility] al[facility]ado [place] [address] [place] [address] [phone] (Wo rk) Social History Tobacco Use Types [...] (TeleHealth) Hematology and Marija Baumann MD Oncology [facility] HEMATOLOGY ONCOL [place], [place] [address] (Wo rk) 12/16/2021 Scheduled View Only Radiation Oncology 12/17/2021 Scheduled View Only Radiation Oncology 12/18/2021 Scheduled View Only Radiation Oncology 12/18/2021 Infusion Hematology and Oncology 12/21/2021 Scheduled View Only Radiation Oncology 12/22/2021 Scheduled View Only Radiation Oncology documented as of this encounter Visit Diagnoses Not on filedocumented in this encounter Care Teams Model Builder Display Relationship Specialty Start Date End Date Viki Elaine PA PCP - General Internal Medicine 12/04/[address] [place] [address] [place]S [id number] documented as of this encounter
--- OUTSIDE RECORDS SUMMARY | 2021-12-04 13:54 | XMS_ITS | Encounter Summary ---
:1955 Author Organization [facility] [address] Care Team Providers Name Role Phone Viki Elaine Primary Care Provider [phone] Reason for Referral Consultation (Routine) - Pending Review Specialty Diagnoses / Procedures Referred By Contact Refer red To Contact Diagnoses Brain tumor Marisa Sylvester MD [facility] [place] [address] Referral ID Status Reason Start Expiration Visits Visits Date Date Requested Authorized [id number] Pending Consult, 10/21/2021 04/19/2022 1 1 Review Test & Treat Reason for Visit Consultation (Routine) - Closed Specialty Diagnoses / Procedures Referred By Contact Refer red To Contact Radiation Oncology Diagnoses Brain tumor Elida Thompson [facility] [place] [address] [place] [address] Phone: Fax: Referral ID Status Reason Start Date Expiration Date Visits V isits Requested Authorized [id number] Closed Consult, 10/14/2021 10/14/2022 1 1 Test & Treat Encounter Details Date Type Department Care Team Description 10/21/2021 Office Visit Radiation Oncology at Vinay Mercado MD Brain tumor [address] [facility] RADIATION ONCOLOGY [facility] [id number] [phone] Social History Tobacco Use Types Packs/Day Years [...] place to sleep or slept in a half-way (including now)? Sex Assigned at Date Recorded Not on file documented as of this encounter Last Filed Vital Signs Vital Sign Reading Time Taken Comments Blood Pressure 119/53 10/21/2021 12:04 PM EDT Pulse 51 10/21/2021 12:04 PM EDT Temperature 36.5 ??C (97.7 ??F) 10/21/2021 12:04 PM EDT Respiratory Rate 18 10/21/2021 12:04 PM EDT Oxygen Saturation 99% 10/21/2021 12:04 PM EDT Inhaled Oxygen Concentration - - Weight 72.4 kg (159 lb 9.6 oz) 10/21/2021 12:04 PM with shoes EDT Height - - Body Mass Index 27.82 10/09/2021 8:17 PM EDT documented in this encounter Patient Instructions Patient InstructionsMarisa Sylvester MD - 10/21/2021 12:00 PM EDT Lorin, Next steps: - Completed CT simulation today - Plan for neuro-oncology appointment on 10/30 (reaching out to [facility] regarding sooner appointment, haven't heard back yet)- to manage chemotherapy - Plan for 15 treatments of radiation (5 days a week- excluding weekend and holidays) with daily chemotherapy We plan on starting radiation once the chemotherapy is available. Please reach out with further questions, Dr. Sylvester documented in this encounter Progress Notes Marisa Sylvester MD - 10/21/2021 12:00 PM EDT Images from the original note were not included. Radiation Oncology Consult Note Vinay Mercado MD, MS [facility] PATIENT IDENTIFICATION: PATIENT NAME: Lorin Cardona DATE OF : 1955 REFERRING PROVIDER: INEZ Holland PRIMARY CARE PROVIDER: INEZ Lindsey REASON FOR CONSULTATION: GBM, s/p biopsy only DATE OF SERVICE: 10/21/2021 HISTORY OF PRESENT ILLNESS: Lorin Cardona is a 66 y.o. female with PMH migraine, papillary thyroid cancer s/p total thyroidectomy (now hypothyroid) who presented to OSH for progressive confusion, AL, nausea and vomiting found tohave an intracranial mass for which patient was transferred [place] [facility] [place]. Per admission H&P, it was reported that she had been unlike herself starting in June 2021, initially starting with simple forgetfulness and repeating herself w/ increased disorientation starting August. CT head on 09/24 noted an intracranial mass centered on the splenium of the corpus callosum with associated ventriculomegaly, cerebral edema, and focal area of hyperdensity. NSGY called via tumor hotline with recommendation for urgent outpatinet MRI and clinic f/u on 10/13, but Lorin developed n/v, AL, and more severe confusion resulting in OSH ED presentation and was transferred to [facility] for further management. While inpatient she was started on keppra for seizure prophylaxis and dexamethasone for cerebral edema. MRI brain on 10/09/21 showed a butterfly mass in the splenium of the corpus collosum concerning fora HGG. Lorin underwent stereotactic biopsy on 10/13/21 which was consistent with glioblastoma, IDH-wildtype, WHO grade 4. MGMT promoter methylation is stil pending. Lorin was discharged on 10/14/21 home with [facility]. REVIEW OF SYSTEMS: On further questioning, she reports that she continues to have difficulty with daily tasks. Her family notes that she was independent earlier this year. Since her hospital admission, she notes improved energy. She uses walker but doesn't feel she needs it, though family notes several falls without walker. She denies weakness or sensation changes. She notes blurry vision- unclear timelines. No changes to hearing. No difficulty swallowing. Has prolapsed bladder- unchanged urinary habits. REVIEW OF SYSTEMS 10/21/2021 Constitutional Weight loss, Weight gain, Fatigue, lack of energy, Drowsiness Ear / nose / throat / mouth None of the above Eyes Don't know Respiratory None of the above Cardiovascular None of the above Gastrointestinal Appetite problems Skin, hair Dry skin, Itching Musculoskeletal Joint stiffness Neurological Balance difficulty, dizziness Hematologic / Lymphatic Easy bruising or bleeding Genitourinary Dribbling A comprehensive 14 point review of systems was conducted with this patient and is otherwise negativeexcept as documented above. PAST MEDICAL AND SURGICAL HISTORY: Past Medical History: Diagnosis Date ??? GERD (gastroesophageal reflux disease) ??? Kidney stones ??? Osteopenia ??? Postoperative hypothyroidism ??? Thyroid cancer Past Surgical History: Procedure Laterality Date ??? PRG EMG, LARYNX N/A 01/07/2021 FACIAL NERVE MONITORING, SETUP LARYNGEAL (WRVU 1.57) performed by Fabienne De Dios MD at [facility] MAIN OR ??? PRO REMOVAL NODES, NECK, CERV MOD RAD Left 01/07/2021 @CERVICAL LYMPHADENECTOMY (MODIFIED RADICAL NECK DISSECTION) (WRVU 23.95) performed by Fabienne De Dios MD at [facility] MAIN OR ??? PRO STEREOTACTIC BRAIN BX, ASPIR, EXC Left 10/13/2021 @STEREOTACTIC BX, ASP, OR EXC.-INTRACRANIAL LESION (WRVU 19.83) performed by Real Singh MD at [facility] MAIN OR ??? PRO THYROIDECTOMY, MALIG, LTD NECK SURG Bilateral 01/07/2021 THYROIDECTOMY, FOR MALIGNANCY, LIMITED NECK DISSECTION (WRVU 22.01) performed by Tony De Dios MD at [facility] MAIN OR CONTRAINDICATIONS TO RADIATION THERAPY: None Prior Radiation to this Site: No but note she had prior I-131 thyroid ablation w/ Dr. Miguel 04/2021 Active Connective Tissue Disease (Lupus or Scleroderma) No No MEDICATIONS AND ALLERGIES: Medications 10/21/21 1152 Medication Sig Taking? docusate sodium (Colace) 100 mg Capsule Take 1 capsule by mouth 2 times daily for 10 days. Yes sodium chloride 1 gram Tablet Take 1 tablet by mouth daily for 14 days. Yes pantoprazole EC (Protonix) 20 mg Tablet, Delayed Release (E.C.) Take 1 tablet by mouth daily. Yes levETIRAcetam (Keppra) 500 mg Tablet Take 1 tablet by mouth 2 times daily. Yes dexAMETHasone (Decadron) 4 mg Tablet Take 1 tablet by mouth every 6 hours. Yes levothyroxine (Synthroid) 100 mcg Tablet Take 1 tablet by mouth daily. Yes calcium citrate (Calcitrate) 200 mg (950 mg) Tablet Take 1 tablet by mouth daily. Taking 400mg dailyYes acetaminophen (Tylenol) 500 mg Tablet Take 2 tablets by mouth as needed for Pain. Yes calcium carbonate (Tums) 200 mg calcium (500 mg) Tablet, Chewable Take 2 tablets by mouth 3 times daily (after meals). Patient taking differently: Take 500 mg by mouth daily. Yes diphenhydramine HCl (BENADRYL ALLERGY ORAL) Take by mouth. Yes multivitamin Capsule Take 1 capsule by mouth every other day. Yes docosahexaenoic acid/epa (FISH OIL ORAL) Take by mouth daily. Taking 1000mg every other day ascorbic acid, Vitamin C, (Vitamin C) 500 mg Tablet Take 500 mg by mouth every other day. 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 General: alert, appears stated age, and in no distress sitting in exam room with sister and at side Neuro: PERRL, EOMI, strength and sensation in tact b/l in face, tongue midline, cnjfmf-mr-ajen WNL, unable to follow commands (touch left ear with right hand), strength/sensation in tact in upper and lower extremities b/l TODAY'S PERFORMANCE STATUS: KPS Score ECOG Grade Definition 90-100 0 [...] selfcare; totally confined to bed or chair ASSESSMENT / PLAN: Lorin Cardona is a 66 y.o. female with newly diagnosed glioblastoma, WHO grade 4, IDH-wildtype. Given Lorin's performance status, we recommend palliative-intent, hypofractionated chemoRT treatmentwhich include, EBRT (40Gy in 15fx) with concurrent temozolomide, followed by adjuvant temozolomide. Additionally, there has been shown to be a increased in OS with the use of TFF rowley following chemoRT, which will be explored in further detail following completion of radiohterapy. Lorin is scheduled to see neuro-oncology at [facility] on 10/30/21 due to unavailability of a provider in the [facility]. For logistic and timeliness reasons, we will explore whether Dr Osuna orher colleagues can see her in a more timely fashion and closer to Lorin's home, at [facility]. We discussed: - Pathology and imaging results - Rationale for chemoRT followed by adjuvant chemotherapy - Temozolomide, which will be managed by neuro-oncology (appointment scheduled for 10/30/21) - Logistics of radiation planning and treatment - Side effects of XRT and temozolomide including, but not limited to, fatigue, hair loss, headache, n/v. All of Lorin's questions were answered to her fullest satisfaction, and we have provided her with our contact information should any further questions or concerns arise. Lorin was agreeable to plan andconsent was signed. Lorin underwent CT simulation this afternoon. Plan to start XRT w/ concurrent alexx motherapy. References: - Manuel BRICE, Rod WATSON, Peg CHANEY. An analysis of dose-effect relationship in the radiotherapy of malignant gliomas. Int J Radiat Oncol Biol Phys. 1979 Nov;5(10):1725-31. doi: 10.1016/2485-1725(19)80379-6. PMID: 294614. - You Emerson, et al. Organisation for Research and Treatment of Cancer Brain Tumor and Radiotherapy Groups; National Cancer [place] [employer] [place] Clinical Trials Group. Radiotherapy plus concomitant and adjuvant temozolomide for glioblastoma. N Engl J Med. 2004 10;352(10):987-96. doi: 10.1056/N [id number]. PMID: 00872257. - You Emerson et al. Effect of Tumor-Treating Rowley Plus Maintenance Temozolomide vs Maintenance Temozolomide Alone on Survival in Patients With Glioblastoma: A Randomized Clinical Trial. AKHIL. 2017 Jan 25;318(23):4917-1749. doi: 10.1001/akhil.2017.81260. Erratum in: AKHIL. 2017June 07;319(17):1824. PMID: 29 126548; PMCID: [id number]. - Mauricio JR, Rahul N, OFlaquita CJ, Javi AA, Evon J, Charlie C, Ermelinda M, Lewis R, Anisa TravisG, Chaya W, Madhavi D, Vanessa ONIEL, Sean A, Michelle H, Neto F, Alonso E, Ruben O, Mervat V, Purnima L, Judith Orozco, Nish L, Joaquin M, Debbie M, Shae C, Neha BG, Judith W, Diomedes K, Demetris WP; Trial Investigators. Short-Course Radiation plus Temozolomide in Elderly Patients with Glioblastoma. N Engl J Med. 2017 Apr 22;376(11):0764-7358. doi: 10.1056/BVZWcy4287432. PMID: 39200711. SUMMARY OF PLAN / RECOMMENDATION: 1. Intent of therapy: Palliative 2. Clinical Trial Availability: No 3. CT simulation today 4. Plan for 40Gy in 15fx w/ concurrent temozolomide 5. Neuro-oncology scheduled for 10/30 (will investigate whether she can be seen sooner at [facility])- f/u those recommendations Marisa Sylvester MD Attending MD Attestation: I have seen the patient in person, reviewed and edited the resident's above history and I agree withthe details as written. The assessment and plan were formulated in discussion with me and I agree with them as documented. In brief, Lorin Cardona is 66 year old woman with an unresectable GBM, s/p biopsy only. We discussed the prognosis of these cancers today in clinic, and she understands that treatment intent is palliative in nature. Simulation is scheduled for later today and we will explore whether she can be soonerby neuro/onc in [facility], given delays and travel required to see a provider at . At least 60 minutes were spent in providing care to this patient today as reflected by the followingactivities: - review of her medical record in the chart, including interpretation of imaging, laboratory and pathologic studies referenced above - discussion of the above with the patient as part of shared medical decision making - documenting the outcome of today's visit as above Vinay Mercado MD, MS [employer] Radiation Oncology Carmelita Grant RN - 10/21/2021 12:00 PM EDT RADIATION ONCOLOGY NURSING INITIAL NURSING ASSESSMENT IDENTIFICATION: Lorin Cardona is a 66 y.o. year-old female with glioblastoma. PRESENTING SYMPTOMS/CHIEF COMPLAINT: Presented with confusion, headache, nausea,vomiting REVIEW OF SYSTEMS: Review of Systems Constitutional: Positive for appetite change (improving), fatigue and unexpected weight change (weight fluctuation down/up). Genitourinary: Positive for bladder incontinence (no recent changes. ). Please see ROS filed by patient. IN THE PAST 12 MONTHS HAVE YOU: Fallen more than one time? Yes Injured yourself as result of the fall? No Experienced difficulty with walking/problems with balance? Yes Do you use any assistive devices? Yes Any history of collagen vascular diseases:No Any Implanted Devices/Hardware: Yes. States that she has a mesh lift to help with her urinary incontinence. If yes please put alert in ARIA patient summary Prior Radiotherapy: Yes Had I-131 04/16/[address] Mike Miguel. Prior Chemotherapy: No Prior Hormone Therapy: No LEARNING ASSESSMENT REVIEWED: Yes ADVANCED DIRECTIVE: None on file PAIN ASSESSMENT: 0 out of 10 *eD-H Adult PCS Flow Sheet if 4 or above SOCIAL ASSESSMENT: See EDH social assessment information entered. Support Systems: Here today with spouse Tang and sister Hawa. States that she has large support system of family. Barriers to treatment: None noted. Referrals/Interventions: ROUNDER HAND per routine RADIATION SPECIFIC TEACHING: [facility] Radiation Therapy and You Site specific teaching : Other: PLAN: Per Dr. Sylvester/Rogelio Answers for HPI/ROS submitted by the patient on 10/21/2021 Distress: 0 documented in this encounter Plan of Treatment [...] (TeleHealth) Hematology and Marija Baumann MD Oncology [facility] HEMATOLOGY ONCOL [place], [place] [address] (Wo rk) 12/16/2021 Scheduled View Only Radiation Oncology 12/17/2021 Scheduled View Only Radiation Oncology 12/18/2021 Scheduled View Only Radiation Oncology 12/18/2021 Infusion Hematology and Oncology 12/21/2021 Scheduled View Only Radiation Oncology 12/22/2021 Scheduled View Only Radiation Oncology Scheduled Referrals Name Type Priority Associated Diagnoses Order S chedule Referral to Outpatient Referral Routine Brain tumor Ordered: Neuro-Oncology 10/21/2021 documented as of this encounter Visit Diagnoses Diagnosis Brain tumor Neoplasm of unspecified nature of brain documented in this encounter Care Teams Inventory Manager Relationship Specialty Start Date End Date Viki Elaine PA PCP - General Internal Medicine 12/04/[address] [place] [address] [place] [address] documented as of this encounter
--- OUTSIDE RECORDS SUMMARY | 2021-12-04 13:54 | XMS_ITS | Encounter Summary ---
:1955 Author Organization [facility] [place] [address] Care Team Providers Name Role Phone Viki Elaine Primary Care Provider [phone] Encounter Details Date Type Department Care Team Description 10/30/2021 Telephone [address] [facility], Ralph Orozco RN [address] [phone] Social History Tobacco Use [...] this encounter Miscellaneous Notes Telephone Encounter - Ralph Hernandez RN - 10/30/2021 3:53 PM EDT Called and spoke to patients Tang. Needed clarification on new medications prescribed by [facility]. This RN clarified that patient has been started on Temodal for chemotherpy, Zofran and Bactrim. Randy was confused By instructions and amount of medications as he thought they were for radiation tx duration. This RN preformed education on all medications on what they were for as well as when to administer them. Randy verbalized when to start both medications as well as symptoms to watch for and when to utilize PRN Zofran outside of taking concurrently with Temodal. Randy advised to call back with any other questions or concerns. ----- Message from Majo Ibarra sent at 10/30/2021 1:25 PM EDT ----- Regarding: Med Instructions prior to xRT Lorin Beckwith's , called to let us know he received the Zofran and Tramadol from her med onc provider at [facility]. He said that for both meds he has two extra days worth of tablets. They told him she should start the meds the morning of her first treatment (this coming Tuesday). He is looking for a second opinion about the instructions for the medications, including the instructions for weekends. Ronald please follow up with him today at the number below? [phone] documented in this encounter Plan of Treatment [...] (TeleHealth) Hematology and Marija Baumann MD Oncology [facility] DR HEMATOLOGY ONCOL [place], [place] [address] (Wo rk) 12/16/2021 Scheduled View Only Radiation Oncology 12/17/2021 Scheduled View Only Radiation Oncology 12/18/2021 Scheduled View Only Radiation Oncology 12/18/2021 Infusion Hematology and Oncology 12/21/2021 Scheduled View Only Radiation Oncology 12/22/2021 Scheduled View Only Radiation Oncology documented as of this encounter Visit Diagnoses Not on filedocumented in this encounter Care Teams Automotive Designer Relationship Specialty Start Date End Date Viki Elaine PA PCP - General Internal Medicine 12/04/[address] [place] [address] [place] [address] documented as of this encounter
--- OUTSIDE RECORDS SUMMARY | 2021-12-04 13:54 | XMS_ITS | Encounter Summary ---
:1955 Author Organization [facility] [place] [address] Care Team Providers Name Role Phone Viki Elaine Primary Care Provider [phone] Encounter Details Date Type Department Care Team Description 11/05/2021 Telephone Radiation Oncology at [facility], Ralph Orozco RN [address] [phone] Social History Tobacco Use [...] place to sleep or slept in a intermediate (including now)? Sex Assigned at Date Recorded Not on file documented as of this encounter Miscellaneous Notes Telephone Encounter - Ralph Hernandez RN - 11/05/2021 11:26 AM EDT [facility] notified today by [facility] staff that Lorin Cardona was admitted to [facility] on 11/04/21 as inpatient withdiagnosis of Seizures. notified. Patient: Lorin Cardona Date of : 1955 Admission Diagnosis: ??- Seizure (HCC-CMS) (HCC) ??- Glioblastoma (HCC) Admission Date/Time: 11/04/2021 3:04 EDT Unit: [facility] Neurosurgery Unit Facility: [facility] Main [place] Organization: [facility] Attending Providers: ??- Viki Turner MD, Emergency Medicine ??- Jackelin Glover MD, Neurology ??- Damian Arzate MD, Emergency Medicine ??- Damian Arzate MD, Emergency Medicine Admitting Provider: Augustine Guillory MD, Neurology Facility documented in this encounter Plan of Treatment [...] (TeleHealth) Hematology and Marija Baumann MD Oncology [facility] H[place]ATOLOGY [place] [address] (Wo rk) 12/16/2021 Scheduled View Only Radiation Oncology 12/17/2021 Scheduled View Only Radiation Oncology 12/18/2021 Scheduled View Only Radiation Oncology 12/18/2021 Infusion Hematology and Oncology 12/21/2021 Scheduled View Only Radiation Oncology 12/22/2021 Scheduled View Only Radiation Oncology documented as of this encounter Visit Diagnoses Not on filedocumented in this encounter Care Teams Cytogeneticist Relationship Specialty Start Date End Date Viki Elaine PA PCP - General Internal Medicine 12/04/[address] [place] [address] [place] [address] documented as of this encounter
--- OUTSIDE RECORDS SUMMARY | 2021-12-04 13:54 | XMS_ITS | Encounter Summary ---
:1955 Author Organization [place] [place] [address] Care Team Providers Name Role Phone Viki Elaine Primary Care Provider [phone] Encounter Details Date Type Department Care Team Description 10/21/2021 Ancillary Radiation Oncology Vinay Mercado, Hodan david neoplasm Procedure at [facility] MD of brain, [address] unspecified location [place], [place] RADIATION [phone] ONCOLOGY [phone] [place], [place] [id number] Social History Tobacco Use Types Packs/Day Years [...] Hematology and Marija Baumann MD Oncology [facility] HEMATOLOGY ONCOL [place], [place] [address] (Wo rk) 12/16/2021 Scheduled View Only Radiation Oncology 12/17/2021 Scheduled View Only Radiation Oncology 12/18/2021 Scheduled View Only Radiation Oncology 12/18/2021 Infusion Hematology and Oncology 12/21/2021 Scheduled View Only Radiation Oncology 12/22/2021 Scheduled View Only Radiation Oncology Pending Results Name Type Priority Associated Diagnoses Date/Ti va Film Library Imaging Storage Routine Malignant neoplasm of 2:19 PM Radiation Oncology Only brain, unspecified EDT Studies location documented as of this encounter Visit Diagnoses Diagnosis Malignant neoplasm of brain, unspecified location documented in this encounter Care Teams Chef Teacher Relationship Specialty Start Date End Date Viki Elaine PA PCP - General Internal Medicine 12/04/[address] [place] [address] [place] [address] documented as of this encounter
--- OUTSIDE RECORDS SUMMARY | 2021-12-04 13:54 | XMS_ITS | Encounter Summary ---
:1955 Author Organization [facility] [place] [address] Care Team Providers Name Role Phone Viki Elaine Primary Care Provider [phone] Encounter Details Date Type Department Care Team Description 10/23/2021 Telephone [place] [facility] Montoya [facility] [place] [id number] Social History Tobacco Use Types Packs/Day [...] Notes Telephone Encounter - Rekha Alvarado - 10/23/2021 3:33 PM EDT Called back with SOHAN response and canceled 10/27 TOV per pt request, they know to call anytime with questions or concerns and being seen at [facility] Telephone Encounter - Cindy Montoya - 10/23/2021 11:59 AM EDT Papo Singh. Tang, , calling to ask if TOV on 10/27/2021 is necessary, as he and Lorin have already received results and are planning to see Oncology to begin treatment at the same time as TOV. Please advise Andrea White documented in this encounter Plan of Treatment [...] (TeleHealth) Hematology and Marija Baumann MD Oncology [facility] HEMATOLOGY ONCOL [place], [place] [address] (Wo rk) 12/16/2021 Scheduled View Only Radiation Oncology 12/17/2021 Scheduled View Only Radiation Oncology 12/18/2021 Scheduled View Only Radiation Oncology 12/18/2021 Infusion Hematology and Oncology 12/21/2021 Scheduled View Only Radiation Oncology 12/22/2021 Scheduled View Only Radiation Oncology documented as of this encounter Visit Diagnoses Not on filedocumented in this encounter Care Teams Orthodontic Laboratory Technician Relationship Specialty Start Date End Date Viki Elaine PA PCP - General Internal Medicine 12/04/[address] [place] [address] [place] [address] documented as of this encounter
--- OUTSIDE RECORDS SUMMARY | 2021-12-04 13:54 | XMS_ITS | Encounter Summary ---
:1955 Author Organization [facility] [place] [address] Care Team Providers Name Role Phone Viki Elaine Primary Care Provider [phone] Encounter Details Date Type Department Care Team Description 10/21/2021 [facility] OFFICE OF CARE [address] [place] [phone] Social History Tobacco Use Types Packs/Day Years [...] place to sleep or slept in a senior care (including now)? Sex Assigned at Date Recorded Not on file documented as of this encounter Progress Notes Shanelle Guido, [employer] - 10/21/2021 2:31 PM EDT Reason for Referral: Brief assessment of social and emotional needs. Met with ptand her after her sim today to introduce myself and role of clinical social worker to assess/address barriers to getting to and through treatments; address support needs and connect with community services and resources as needed. Family/Social Supports: Pt identified her of 45 years as her primary support. There son lives nearby. Pt indicated a sister visits on weekends. She has other extended family. Living Situation/Daily Activities/Transportation: Pt is using her walker to get about her house. Herhusband assists with personal care. She has OT, PT and RN services from the [facility]. Her tends to the daily chores. They are expecting 15 RT treatments. does not expect any issues with transportation. Work/Finances/Insurance: Both pt and are retired. indicated they are able to manage their financial obligations. Pt has Medicare and BCBS for insurance. Advance Directives: Pt has completed her advance directive. Requested a copy for her record if interested in having it on file at . Utilization of Community Resources: [facility] services Adjustment to Illness/Mental Health Concerns: Pt acknowledges her memory issues and the impact it has on her life and her need to be her caregiver. She indicated she is taking things as they come. shared he had expected with RT treatments some improvements but found out today that it will be unlikely. Offered support. Identified Needs: Pt/ did not identify any specific needs at this time. Referrals: None at this time. Social Work Interventions: Brief assessment Supportive Counseling Advance care planning Plan: Informed pt of [employer] availability and contact information. Will follow to assess/address psychosocial needs. HUEY Sevilla, CONVEYOR CONSOLE OPERATOR, OSW-[employer] Fashion Designer [facility] documented in this encounter Plan of Treatment [...] (TeleHealth) Hematology and Marija Baumann MD Oncology [facility] DR HEMATOLOGY ONCOL [place], [place] [address] (Wo rk) 12/16/2021 Scheduled View Only Radiation Oncology 12/17/2021 Scheduled View Only Radiation Oncology 12/18/2021 Scheduled View Only Radiation Oncology 12/18/2021 Infusion Hematology and Oncology 12/21/2021 Scheduled View Only Radiation Oncology 12/22/2021 Scheduled View Only Radiation Oncology documented as of this encounter Visit Diagnoses Not on filedocumented in this encounter Care Teams Overnight Babysitter Relationship Specialty Start Date End Date Viki Elaine PA PCP - General Internal Medicine 12/04/[address] [place] [address] [place] [address] documented as of this encounter
--- OUTSIDE RECORDS SUMMARY | 2021-12-04 13:54 | XMS_ITS | Clinical Summary ---
:1955 Author Organization [facility] [place] [address] Care Team Providers Name Role Phone Viki Elaine Primary Care Provider [phone] Allergies No known active allergies Medications Medication Sig Dispensed Refills Start Date End Date Status docosahexaenoic acid/epa Take by mouth 0 Active (FISH OIL ORAL) daily. Taking 1000mg every other day multivitamin Capsule Take 1 capsule 0 Active by mouth every other day. ascorbic acid, Vitamin Take 500 mg by 0 Active C, (Vitamin C) 500 mg mouth every Tablet other day. diphenhydramine HCl Take by mouth. 0 Active (BENADRYL ALLERGY ORAL) acetaminophen (Tylenol) Take 2 tablets 0 01/08/2021 Active 500 mg Tablet by mouth as needed for Pain. calcium carbonate (Tums) Take 2 tablets 0 01/08/2021 Active 200 mg calcium (500 mg) by mouth 3 times Tablet, Chewable daily (after meals). Additional Information Patient taking differently: 500 mg Oral DAILY, Taking one tablet once daily, Reported on 12/03/2021 calcium citrate Take 1 tablet by 0 Active (Calcitrate) 200 mg (950 mouth daily. Taking mg) Tablet 400mg daily levothyroxine Take 1 tablet by 90 tablet 3 09/14/2021 Active (Synthroid) 100 mcg mouth daily. Tablet pantoprazole EC Take 1 tablet by 30 tablet 1 10/15/2021 Active (Protonix) 20 mg Tablet, mouth daily. Delayed Release (E.C.) sodium chloride 1 gram Take 1 g by mouth 0 Active Tablet nightly. docusate sodium (Colace) Take 100 mg by 0 Active 100 mg Capsule mouth once. sulfamethoxazole-trimeth Take 1 tablet by 0 Active oprim DS (Bactrim DS) mouth three times a 800-160 mg Tablet week (Mon, Weds, Fri). CLOBAZAM 2.5 MG/ML PEDI 1 mL nightly. 0 Active ORAL SUSPENSION ondansetron ODT Take 4 mg by mouth 0 Active (Zofran-ODT) 4 mg every 8 hours as Tablet, Rapid Dissolve needed for Nausea. temozolomide (Temodar) Take by mouth 0 Active 140 mg Capsule daily. Take on an empty stomach. Call clinic before/prior to starting medication/script. LORazepam (Ativan) 1 mg Take 1 tablet by 15 tablet 0 2 Active TabletIndications: mouth every 6 hours Glioblastoma as needed for Anxiety (For breakthrough). levETIRAcetam (Keppra) Take 2 tablets by 180 tablet 0 12/04/19 Active 750 mg mouth 2 times TabletIndications: daily. Glioblastoma dexAMETHasone (Decadron) Take 3 tablets by 180 tablet 0 2021 Active 2 mg TabletIndications: mouth 2 times daily Glioblastoma (with meals). divalproex DR Sprinkle Take 3 capsules by 180 capsule 2 202103/03/2022 Active (Depakote Sprinkle) 125 mouth 2 times daily mg capsule, delayed rel for 90 days. sprinkleIndications: Glioblastoma Active Problems Problem Noted Date Glioblastoma 12/03/2021 Brain tumor 10/09/2021 Thyroid cancer 12/15/2020 Encounters Date Type Specialty Care Team Description 12/04/2021 Infusion Hematology and Arrived Oncology 12/03/2021 Office Visit Radiation Oncology Vinay Mercado MD 12/03/2021 TH Visit Hematology and Marija Baumann MD Glioblasto de (TeleHealth) Oncology 12/03/2021 Telephone Hematology and Jessica Fowler RN 12/03/2021 Orders Only Hematology and Marija Baumann MD Oncology 12/03/2021 Travel 11/05/2021 Telephone Radiation Oncology Ralph Hernandez RN 11/04/2021 Ancillary Radiology Chele, INEZ Scruggs 11/03/2021 Ancillary Radiology Vinay Mercado MD 11/03/2021 Notes Only Radiation Oncology Ralph Hernandez RN 10/30/2021 Telephone Radiation Oncology Ralph Hernandez RN 10/27/2021 Telephone Daina Saleem alejandranida M (Molecular [facility] er testing CPTs 81 455, 26939 and 43091 are covered benefit s. ) 10/26/2021 Telephone Neurosurgery Cindy Montoya 10/26/2021 Patient Outreach Hematology and Alvina Petit, LIZABETH 10/23/2021 Telephone Neurosurgery Cindy Montoya 10/21/2021 Ancillary Radiation Oncology Rogelio, Vinay Maligna nt neoplasm Procedure SMD of brain, unspecified loc ation 10/21/2021 Ancillary Radiation Oncology Vinay Mercado Appointment MD Efrain 10/21/2021 Office Visit Radiation Oncology Rogelio, Vinay Brain t kendall Zuniga MD 10/21/2021 Notes Only Radiation Oncology Shanelle Guido, BUSINESS SUPPORT ASSISTANT 10/16/2021 Telephone Neurosurgery Monserrat Flores RN 10/14/2021 Orders Only Radiation Oncology Rogelio, Vinay Brain t kendall Zuniga MD 10/14/2021 Telephone Neurosurgery Real Singh MD 10/13/2021 Hospital Encounter Radiology Chele, Canceled (P-PATIENT INEZ Moreno ADMITTED/DEL IVERED) 10/13/2021 Anesthesia Event Surgery Flores Zhou MD 10/13/2021 Surgery Surgery Real Singh @[email or web address] JAMIL MD ASP, OR EXC.-INTRACRANI AL LESION (WRVU 19 .83) 10/09/2021 Hospital Encounter Real Singh Brain tumor - MD Hiren 10/14/2021 10/09/2021 Hospital Encounter Emergency Medicine Victor M Witt MD 10/09/2021 Ancillary Radiology Fred Valdez MD 10/09/2021 Telephone Neurosurgery Rasheeda Baltazar MD 10/09/2021 Telephone Neurosurgery Rasheeda Baltazar MD 09/24/2021 Notes Only Neurosurgery Real Singh MD 09/24/2021 Transcribe Orders Primary Care Yasewicz, Malignant neoplasm INEZ Moreno of brain, unspecified loc ation 09/23/2021 Ancillary Radiology Yaserobert, Procedure INEZ Moreno 09/14/2021 Telephone Endocrinology Alireza Mckenzie RN from Last 3 Months Social History Tobacco Use Types Packs/Day Years [...] place to sleep or slept in a mcc (including now)? Sex Assigned at Date Recorded Not on file Last Filed Vital Signs Vital Sign Reading Time Taken Comments Blood Pressure 116/63 12/04/2021 1:50 PM EDT Pulse 63 12/04/2021 1:50 PM EDT Temperature 35.6 ??C (96.1 ??F) 12/04/2021 1:50 PM EDT Respiratory Rate 16 12/04/2021 1:50 PM EDT Oxygen Saturation 100% 12/04/2021 1:50 PM EDT Inhaled Oxygen Concentration - - Weight 69.9 kg (154 lb) 12/04/2021 1:50 PM EDT Height 160.4 cm (5' 3.15) 12/03/2021 10:03 AM EDT Body Mass Index 27.15 12/03/2021 10:03 AM EDT Plan of Treatment Upcoming Encounters Date Type [...] Hematology and Marija Baumann MD Oncology [facility] DR HEMATOLOGY ONCOL [place], [place] [address] (Wo rk) 12/16/2021 Scheduled View Only Radiation Oncology 12/17/2021 Scheduled View Only Radiation Oncology 12/18/2021 Scheduled View Only Radiation Oncology 12/18/2021 Infusion Hematology and Oncology 12/21/2021 Scheduled View Only Radiation Oncology 12/22/2021 Scheduled View Only Radiation Oncology Health Maintenance Due Date Last Done Comments Covid-19 Vaccine (#1) 1955 Hepatitis C Screening 1971 Tdap adult 01/07/1972 Tetanus vaccine 01/07/1972 Breast Cancer Share Decision 1993 Needed Colonoscopy 1998 Breast Cancer screening 2003 Zoster vaccine (1 of 2) 2003 Bone Density Scan 2018 Pneumoccocal Vaccine: 65+ (1 - 2018 PCV) Influenza (Flu) vaccine (1 of - 10/08/2021 Influenza standard series) Diabetes Screening (HgbA1C or 10/14/2024 10/14/2021, 2021, Glucose) 10/12/2021, Additional history exists Procedures Procedure Name Priority Date/Time Associated Comments Diagnosis LAB SCAN 12/01/2021 12:00 Results for this AM EDT procedure are i n the results section. FILM LIBRARY STORAGE Routine 11/04/2021 12:00 Res ults for this ONLY MR HEAD AM EDT procedure are i n the results section. FILM LIBRARY STORAGE Routine 11/03/2021 12:00 Res ults for this ONLY CT HEAD AM EDT procedure are i n the results section. LAB SCAN 11/02/2021 12:00 Results for this AM EDT procedure are i n the results section. LAB SCAN 10/24/2021 12:00 Results for this AM EDT procedure are i n the results section. DIFFERENTIAL, AUTOMATED Routine 10/14/2021 12:54 Results for this AM EDT procedure are i n the results section. HEMOGRAM Routine 10/14/2021 12:54 Results for this AM EDT procedure are i n the results section. BASIC METABOLIC PANEL Routine 10/14/2021 12:54 Re sults for this (NON-FASTING) AM EDT procedure are in the results section. HC CBC,PLT & AUTO DIFF Routine 10/14/2021 12:54 AM EDT HC PHOSPHORUS, SERUM Routine 10/14/2021 12:54 Res ults for this AM EDT procedure are i n the results section. HC VENIPUNCTURE Routine 10/14/2021 12:54 Results for this AM EDT procedure are i n the results section. CT HEAD WO CONTRAST Routine 10/13/2021 6:39 PM Re sults for this (GENERIC) EDT procedure are i n the results section. SCAN DOC: TELEMETRY 10/13/2021 4:54 PM Re sults for this STRIPS EDT procedure are i n the results section. SPECIMEN TO PATHOLOGY Routine 10/13/2021 4:12 PM Results for this EDT procedure are i n the results section. SURGICAL PATHOLOGY Routine 10/13/2021 4:11 PM Res ults for this REPORT EDT procedure are i n the results section. SOLID TUMOR NGS PANEL Routine 10/13/2021 4:11 PM EDT [facility] TEST-BENJAMIN Routine 10/13/2021 4:11 PM Re sults for this EDT procedure are i n the results section. @STEREOTACTIC BX, ASP, 10/13/2021 3:23 PM Brain tumor OR EXC.-INTRACRANIAL EDT LESION (WRVU 19.83) STEREOTACTIC BX, ASP, Routine 10/13/2021 6:31 AM OR EXC.-INTRACRANIAL EDT LESION DIFFERENTIAL, AUTOMATED Routine 10/13/2021 12:34 Results for this AM EDT procedure are i n the results section. HEMOGRAM Routine 10/13/2021 12:34 Results for this AM EDT procedure are i n the results section. BASIC METABOLIC PANEL Routine 10/13/2021 12:34 Re sults for this (NON-FASTING) AM EDT procedure are in the results section. HC CBC,PLT & AUTO DIFF Routine 10/13/2021 12:34 AM EDT HC PHOSPHORUS, SERUM Routine 10/13/2021 12:34 Res ults for this AM EDT procedure are i n the results section. HC MAGNESIUM, SERUM Routine 10/13/2021 12:34 Resu lts for this AM EDT procedure are i n the results section. TYPE AND SCREEN Routine 10/12/2021 9:18 AM Result s for this VALIDITY EDT procedure are i n the results section. ABORH RECHECK STATUS Routine 10/12/2021 9:18 AM R esults for this EDT procedure are i n the results section. ANTIBODY SCREEN Routine 10/12/2021 9:18 AM Result s for this EDT procedure are i n the results section. ABO/RH TYPING Routine 10/12/2021 9:18 AM Results for this EDT procedure are i n the results section. HC VENIPUNCTURE Routine 10/12/2021 9:18 AM EDT DIFFERENTIAL, AUTOMATED Routine 10/12/2021 12:51 Results for this AM EDT procedure are i n the results section. HEMOGRAM Routine 10/12/2021 12:51 Results for this AM EDT procedure are i n the results section. BASIC METABOLIC PANEL Routine 10/12/2021 12:51 Re sults for this (NON-FASTING) AM EDT procedure are in the results section. HC CBC,PLT & AUTO DIFF Routine 10/12/2021 12:51 AM EDT HC PHOSPHORUS, SERUM Routine 10/12/2021 12:51 Res ults for this AM EDT procedure are i n the results section. HC VENIPUNCTURE Routine 10/12/2021 12:51 Results for this AM EDT procedure are i n the results section. DIFFERENTIAL, AUTOMATED Routine 10/11/2021 4:49 AM Results for this EDT procedure are i n the results section. HEMOGRAM Routine 10/11/2021 4:49 AM Results f or this EDT procedure are i n the results section. HC CBC,PLT & AUTO DIFF Routine 10/11/2021 4:49 AM EDT HC MAGNESIUM, SERUM Routine 10/11/2021 4:49 AM Re sults for this EDT procedure are i n the results section. BASIC METABOLIC PANEL Routine 10/10/2021 2:48 AM Results for this (NON-FASTING) EDT procedure are in the results section. HC PHOSPHORUS, SERUM Routine 10/10/2021 2:48 AM R esults for this EDT procedure are i n the results section. DIFFERENTIAL, AUTOMATED Routine 10/10/2021 1:46 AM Results for this EDT procedure are i n the results section. HEMOGRAM Routine 10/10/2021 1:46 AM Results f or this EDT procedure are i n the results section. BASIC METABOLIC PANEL Routine 10/10/2021 1:46 AM Results for this (NON-FASTING) EDT procedure are in the results section. HC CBC,PLT & AUTO DIFF Routine 10/10/2021 1:46 AM EDT HC MAGNESIUM, SERUM Routine 10/10/2021 1:46 AM Re sults for this EDT procedure are i n the results section. MRI BRAIN WWO CONTRAST Routine 10/09/2021 10:35 R esults for this (GENERIC) PM EDT procedure are i n the results section. TYPE AND SCREEN Routine 10/09/2021 6:20 PM Result s for this VALIDITY EDT procedure are i n the results section. ABORH RECHECK STATUS Routine 10/09/2021 6:20 PM R esults for this EDT procedure are i n the results section. ANTIBODY SCREEN Routine 10/09/2021 6:20 PM Result s for this EDT procedure are i n the results section. ABO/RH TYPING Routine 10/09/2021 6:20 PM Results for this EDT procedure are i n the results section. HC ANTIBODY Routine 10/09/2021 6:20 PM DETECTION,CAPTURE-R EDT HC PARTIAL Routine 10/09/2021 6:16 PM Results f or this THROMBOPLASTIN TIME EDT procedur e are in the results section. HC PROTHROMBIN TIME Routine 10/09/2021 6:16 PM Re sults for this EDT procedure are i n the results section. HC HEMOGRAM Routine 10/09/2021 6:16 PM Results f or this EDT procedure are i n the results section. HC TROPONIN T STAT 10/09/2021 6:16 PM Results for this EDT procedure are i n the results section. ELECTROLYTES PANEL STAT 10/09/2021 6:16 PM Res ults for this EDT procedure are i n the results section. POCT GLUCOSE Routine 10/09/2021 5:27 PM Results f or this EDT procedure are i n the results section. FILM LIBRARY STORAGE Routine 10/09/2021 10:58 Res ults for this ONLY CT HEAD AM EDT procedure are i n the results section. ORDS - PROVIDER CARE 09/25/2021 12:00 Res ults for this SCAN AM EDT procedure are i n the results section. FILM LIBRARY STORAGE Routine 09/23/2021 12:00 Res ults for this ONLY CT HEAD AM EDT procedure are i n the results section. LAB SCAN 09/08/2021 12:00 Results for this AM EDT procedure are i n the results section. LAB SCAN 09/07/2021 12:00 Results for this AM EDT procedure are i n the results section. LAB SCAN 09/07/2021 12:00 Results for this AM EDT procedure are i n the results section. LAB SCAN 09/07/2021 12:00 Results for this AM EDT procedure are i n the results section. from Last 3 Months Results SCAN DOC: LAB (12/01/2021 12:00 AM EDT)Only the most recent of7 resultswithin the time period is included. Narrative 12/01/2021 12:00 AM EDT This result has an attachment that is no t available. Ordered by an unspecified provider. Scanning Provider MEDIA MGR SCAN EXT ORDR/RSLT Film Library- Storage Only MR Head (11/04/2021 12:00 AM EDT) Specimen (Source) Anatomical Location Collection Method / Collectio n Time Received Time / Laterality Volume Narrative DH RAD - 11/05/2021 3:31 PM EDT This exam is auto-finalizing. It's purpo se is for storage only. Viki WILEY IMTyshawn FILM LIBRARY ORDERABLES Performing Organization Address City/State/ZIP Code Phon e Number [place], [place] Film Library- Storage Only CT Head (11/03/2021 12:00 AM EDT)Only the most recent of3 resultswithin the time period is included. Specimen (Source) Anatomical Location Collection Method / Collectio n Time Received Time / Laterality Volume Narrative HINA RAD - 11/04/2021 1:14 AM EDT This exam is auto-finalizing. It's purpo se is for storage only. Vinay Mercado MD IMG FILM LIBRARY ORDERABLES Performing Organization Address City/State/[facility] Code Phon e Number RAD [place], [place] (ABNORMAL) Hemogram (10/14/2021 12:54 AM EDT)Only the most recent of6 results within the time period is included. Analysis Performed At Patho logist Time Signature WBC 13.8 (H) 4.0 - 9.5 [facility] MER[facility] x10(3)/[facility] LABORATORY RBC 4.16 4.00 - Buddy[facility] 5.[address] [facility] x10(6)/[facility] LABORATORY Hemoglobin 13.6 11.7 - AKASH MERLY 15.5 g/dL [facility] LABORATORY Hematocrit 39.8 35.7 - AKASH MERLY 45.8 % [facility] LABORATORY MCV 95.7 (H) 82.6 - AKASH MERLY 94.4 [facility] LABORATORY MCH 32.7 (H) 27.1 - AKASH MERLY 32.0 pg [facility] LABORATORY MCHC 34.2 31.7 - AKASH MERLY 35.0 g/dL [facility] LABORATORY Platelets 159 145 - 357 [facility] x10(3)/[facility] LABORATORY RDWSD 46.8 (H) 37.0 - AKASH MERLY 46.0 [facility] LABORATORY RDWCV 13.2 11.5 - [facility] 14.1 % [facility] LABORATORY MPV 9.6 7.6 - 12.9 [facility] LABORATORY nRBC % Auto 0.0 % [facility] LABORATORY nRBC Abs Auto 0.000 0.000 - AKASH MERLY 0.[address] [facility] x10(3)/[facility] LABORATORY Specimen Anatomical Collection Method Collection Time Receive d Time (Source) Location / / Volume Laterality Blood 10/14/2021 12:54 10/14/2021 1:26 AM EDT AM EDT Resulting Agency Comment Spec In Lab Isaías Valladares MD HEMATOLOGY ORDERABLES Performing Organization Address City/State/ZIP [place] [address] (ABNORMAL) Differential, Automated (10/14/2021 12:54 AM EDT)Only the most recent of5 resultswithin the time period is included. [facility] Method Time Signature Neutrophils % 89.8 % [facility] LABORATORY Neutr Abs (ANC) 12.43 (H) 1.70 - [facility] 6.[address] [facility] x10(3)/[facility] L LABORATORY Lymphocytes % 2.7 % [facility] LABORATORY Lymphocytes Abs 0.4 (L) 0.9 - 3.2 [facility] x10(3)/[facility] LABORATORY Monocytes % 6.8 % [facility] LABORATORY Monocyte Abs 0.9 0.3 - 0.9 [facility] x10(3)/[facility] LABORATORY Eosinophils % 0.0 % [facility] LABORATORY Eosinophils Abs 0.0 0.0 - 0.4 [facility] x10(3)/[facility] LABORATORY Basophils % 0.1 % [facility] LABORATORY Basophils Abs 0.0 0.0 - 0.1 [facility] x10(3)/[facility] LABORATORY Immature Gran % 0.60 % [facility] LABORATORY Comment: Immature granulocytes(IG's)percentage an d absolute count will include metamyelocytes, myelocytes, and promyelo cytes. Blood smears from CBCs yielding IG's will be scanned manually for concor dance. If this scan disagrees with the automated IG or if promyelocytes are not ed, a manual differential will be performed. Radha Gran Abs 0.08 (H) 0.00 - 0.04 x10(3)/[facility] LABORATORY Specimen Anatomical Collection Method Collection Time Receive d Time (Source) Location / / Volume Laterality Blood 10/14/2021 12:54 10/14/2021 1:26 AM EDT AM EDT Resulting Agency Comment Spec In Lab Isaías Valladares MD HEMATOLOGY ORDERABLES Performing Organization Address [facility] Phon e Number [address] Phosphorus (10/14/2021 12:54 AM EDT)Only the most recent of4 resultswithin the time period is included. athologist Signature Phosphorus 3.4 2.5 - 4.5 [facility] mg/dL [facility] LABORATORY Specimen Anatomical Collection Method Collection Time Receive d Time (Source) Location / / Volume Laterality Blood 10/14/2021 12:54 10/14/2021 1:26 AM EDT AM EDT Resulting Agency Comment Spec In Lab Real Singh MD CHEMISTRY ORDERABLES Performing Organization Address [facility] Phon e Number [address] Magnesium (10/14/2021 12:54 AM EDT)Only the most recent of5 resultswithin the time period is included. athologist Signature Magnesium 0.83 0.69 - 1.07 [facility] mmol/L [facility] LABORATORY Specimen Anatomical Collection Method Collection Time Receive d Time (Source) Location / / Volume Laterality Blood 10/14/2021 12:54 10/14/2021 1:26 AM EDT AM EDT Resulting Agency Comment Spec In Lab Real Singh MD CHEMISTRY ORDERABLES Performing Organization Address [facility] Phon e Number [address] (ABNORMAL) Basic Metabolic Panel (non-fasting) (10/14/2021 12:54 AM EDT)Only the most recent of5 resultswithin the time period is included. athologist Signature Glucose Lvl 153 65 - 199 [facility] mg/dL [facility] LABORATORY Comment: Diabetes: >=200 mg/dL plus symp toms BUN 20 (H) 8 - 18 mg/dL [facility] LABORATORY Creatinine 0.77 0.70 - 1.20 mg/dL [facility] LABORATORY Sodium 137 135 - 145 mmol/L [facility] LABORATORY Potassium 4.3 3.5 - 5.0 mmol/L [facility] LABORATORY Comment: Please note: ??Patients with WBC >100,00 0 may have falsely elevated Potassium levels. ??For accurate Potassium quantif ication in these patients send serum separator tube (gold top) for subsequent determinations. ??Contact the Clinical Chemistry Laboratory if there are any qu estions. Chloride 104 98 - 107 mmol/L [facility] LABORATORY CO2 24 22 - 31 mmol/L [facility] LABORATORY Anion Gap 9 5 - 15 mmol/L [facility] LABORATORY Calcium 8.5 8.5 - 10.5 mg/dL [facility] LABORATORY Estimated GFR 84 >=60 mL/min/1.73 m?? [facility] LABORATORY Comment: This patient's estimated GFR was calcula dipti using the 2020 CKD-EPI equation. The estimated GFR can vary from the efrem ured GFR by up to 30% in the absence of rapidly changing kidney function. Assess ment of the estimated GFR is not appropriate when creatinine concentratio ns are rapidly changing. For clinical situations in which a more precise estim ate of GFR is necessary, consider alternative methods of GFR estimation bojorquez ch as a 24-hour urine creatinine clearance. Assignment of CKD stage 1-5 for patients with an eGFR near the transition point between stages may be based on clinical assessment of muscle mass and symptoms in addition to eGFR. Specimen Anatomical Collection Method Collection Time Receive d Time (Source) Location / / Volume Laterality Blood 10/14/2021 12:54 10/14/2021 1:26 AM EDT AM EDT Resulting Agency Comment Spec In Lab Real Singh MD CHEMISTRY ORDERABLES Performing Organization Address City/State/ZIP [place] [address] Head wo Contrast (Generic) (10/13/2021 6:39 PM EDT) Anatomical Region Laterality Modality Head Computed Tomography Specimen (Source) Anatomical Collection Method Collection Time Re ceived Time Location / / Volume Laterality 10/13/2021 6:58 PM EDT Impressions 10/13/2021 6:55 PM EDT Expected postbiopsy changes. Thank you for letting us participate in the care of this patient. ??If you are a health care provider and have any questi ons regarding this report, please contact the number below. ??For patients who have questions please contact the health healthcare network consultant that requested your imaging first. ? Narrative 10/13/2021 6:55 PM EDT EXAMINATION: CT HEAD WO CONTRAST (GENERIC) CLINICAL HISTORY: Brain/WIRE LATHER neoplasm, st aging; s/p biopsy TECHNIQUE: CT head performed without intravenous co ntrast administration. COMPARISON: Brain MRI 10/09/[address] head 2021. FINDINGS: Left parietal skull madyson hole defect wit h a small amount of air at the left parietal lobe biopsy site. Stability of the heterogeneously hyperdense tumor involving the posterior corpus callosum with extension into both parietal lobes with surrounding vasogenic edema. No new hyperdense foci. Ventricles are unchanged in size. Procedure Note Shlomo Coto MD - 10/13/2021Formatti ng of this note might be different from the original. EXAMINATION: CT HEAD WO CONTRAST (GENERI C) CLINICAL HISTORY: Brain/WIRE LATHER neoplasm, st aging; s/p biopsy TECHNIQUE: CT head performed without intravenous co ntrast administration. COMPARISON: Brain MRI 10/09/[address] head 2021. FINDINGS: Left parietal skull madyson hole defect wit h a small amount of air at the left parietal lobe biopsy site. Stability of the heterogeneously hyperdense tumor involving the posterior corpus callosum with extension into both parietal lobes with surrounding vasogenic edema. No new hyperdense foci. Ventricles are unchanged in size. IMPRESSION Expected postbiopsy changes. Thank you for letting us participate in the care of this patient. If you are a health care provider and have any questi ons regarding this report, please contact the number below. For patients w ho have questions please contact the health healthcare network consultant that requested your imaging first. Real Singh MD IMG CT ORDERABLES SCAN DOC: TELEMETRY STRIPS (10/13/2021 4:54 PM EDT) Narrative 10/13/2021 4:54 PM EDT This result has an attachment that is no t available. Ordered by an unspecified provider. Scanning Provider MEDIA MGR SCAN EXT ORDR/RSLT Specimen to Pathology (10/13/2021 4:12 PM EDT) Specimen Anatomical Collection Method Collection Time Receive d Time (Source) Location / / Volume Laterality AP Specimen 10/13/2021 4:12 PM 2 4:12 EDT PM EDT Narrative [facility] - 10/13/2021 4:12 PM EDT Specimen requisition ordered. ??Separate Pathology report to follow Real Singh MD PATHOLOGY/CYTOLOGY ORDERABLE S Performing Organization Address City/[facility] Phon e Damein [address] Solid Tumor NGS Panel (10/13/2021 4:11 PM EDT) Specimen Anatomical Collection Method Collection Time Receive d Time (Source) Location / / Volume Laterality Tissue 10/13/2021 4:11 PM 2 5:22 EDT PM EDT Resulting Agency Comment Spec In Lab Real Singh MD PATHOLOGY/CYTOLOGY ORDERABLE S Performing Organization Address [facility]/ZIP [facility] Phon e Damien [address] [facility] Test-Benjamin (10/13/2021 4:11 PM EDT) Component Value Ref Test Analysis Performed At [facility] gist Range Method Time Signature [facility] AKASH Test ? Result ?Flag ??Unit ??RefValue [facility] MGMT Promoter Methylation, [facility] ??Result Summary LABORATORY ?MGMT PROMOTER METHYLATION ABSENT ??Result ? SE E COMMENTS ?Provided diagnosis: brain glioblastoma ?Tumor tissue: Negative for MGMT promoter methylation ??Interpretation ? SEE CO MMENTS ?Current data suggest that the absence of MGMT promoter ?methylation predicts lack of response to alkylating ?chemotherapy (i.e. temozolomide) for patients with ?glioblastoma. Therefore, the absence of MGMT promoter ?methylation in this tumor specimen suggests that such ?therapies may have limited value for this patient. ?Additionally, the absence of MGMT promoter methylation is ?an unfavorable prognostic factor for patients with ?glioblastoma. ? ADDITIONAL INFORMATION ------ ?Microscopic examination was performed by a pathologist only ?to identify areas of tumor for enrichment by ?macrodissection. A methylation-specific PCR-based assa y is ?used to test tumor DNA for the presence of MGMT gene ?promoter methylation. ?Test results should be interpreted in the context of ?clinical findings, family history, and other laborator y ?data. If results obtained do not match other clinical or ?laboratory findings, please contact the laboratory for ?possible interpretation. Misinterpretation of results may ?occur if the information provided is inaccurate or ?incomplete. ?Negative results do not rule out the presence methylat ion ?that may be present but below the limit of detection f or ?this assay (approximately 15%). ?Though rare, mutations and variants within the regions of ?the MGMT promoter covered by the primers may result in ?failure to amplify the region or detect the presence o f ?methylation. ?Negative results do not rule out the presence methylat ion ?that may be present in other CpG sites. ?This test was developed and its performance characteri stics ?determined by [facility] in a manner consistent with CLIA ?requirements. This test has not been cleared or approv ed by ?the U.S. Food and Drug Administration. ??Additional Information ? SEE SKY ADRIAN ?REFERENCES ?1. N Engl J Med 2005;352(10):997-1003 (PMID: 77843185) ?2. Renee Rev Neurol 2010;6:39-51 (PMID: [id number]) ?3. Lancet Oncol. 2012; 13:707-715 (PMID: 94663433) ?4. Lancet Oncol. 2012; 13: 916-926 (PMID: [id number]) ?5. Renee Rev Neurol 2014;10:372-385 (PMID: [id number]) ??Specimen ? Tis more, Tumor ??Tissue ID ?SP- [id number] ??Released by ?Eunice Guerrero M.D., Ph.D. ?Test Performed by: ?[facility] ?[address] [id number] ?Culture Room Worker: Dez Pratt M.D. Ph.D.; CLIA# [id number] Specimen Anatomical Collection Method Collection Time Receive d Time (Source) Location / / Volume Laterality Other Other / Unknown 10/13/2021 4:11 PM 2021 EDT 12:37 PM EDT Resulting Agency Comment Spec In Lab Deni Cruz MD CHEMISTRY ORDERABLES Performing Organization Address City/State/ZIP [place] [address] Surgical Pathology Report (10/13/2021 4:11 PM EDT) Component Value Ref Test Analysis Performed At [facility] Range Method Time Signature Surgical [id number] ? Location: [facility]; [facility]; A [facility] Report The signing pathologist has (i) examined the relevant preparation(s) for the [facility] specimen(s) and (ii) rendered or confirmed the diagnosis(es) . HOSPITAL LABORATORY . 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 Pathologist Performed at: ??-[facility], [place], [place] DISCUSSION Hematoxylin and eosin-staine d sections of the specimen show a diffusely infiltrating glial neoplasm with areas of high cellularity, mitoti c figures, glomeruloid microvascular proliferation, pseudopalisading and geograp hic necrosis. The neoplastic cells are ovoid and have fibrillary processes. Fibrin thrombi are present in some blood vessels. ADDITIONAL STUDIES Immunohistochemistry Studies: Formalin-fixed, paraffin-emb edded tissue sections are studied using the polymer technique with appropriate positive and negative controls. ?These IHC studies provide the pathologist wit h adjunctive diagnostic information. Antibody specificity has been verified by testin g antibodies on a series of in-house tissues with known immunohistochemical perform ance characteristics. The clinical interpretation of any antibody positive stain ing or its absence is evaluated within the context of clinical presentation, morp hology, histopathological criteria and other diagnostic tests. Block ??Antibody Result A1 ?GFAP ?Positive. A1 ?IDH1-R132H ??Negative. A1 ?ATRX ?Retained. A1 ?p53 ? Positive in a large subset of cells. A1 ?Ki67 ?Positive in up to 30-40% of cells in one focus. Molecular genetic testing has been ordered on th is tumor to identify possible therapeutic targets. The reports will be issued separately. SPECIMEN(S) SUBMITTED A - stereotactic biopsy, biopsy (Multiple) CLINICAL INFORMATION Brain tumor SPECIMEN PROCESSING A - Labeled/Fixative: Stereotactic biopsy, fresh. Quantity/Size: Multiple, 1.4 x 0.7 x 0.3 cm in aggregate. Tissue Description: Fragments of pink-link soft tissue. Sections/Processing: Entirely submitted in 1 cassette labeled A1. ??po Specimen (Source) Anatomical Collection Method Collection Time Re ceived Time Location / / Volume Laterality 10/13/2021 4:11 PM EDT Real Singh MD PATHOLOGY/CYTOLOGY ORDERABLE S Performing Organization Address City/[facility]/ZIP [facility] [place] [address] Type and Screen Validity (10/12/2021 9:18 AM EDT)Only the most recent of2 resultswithin the time period is included. [facility] gist Method Time Signature T&S only valid [facility] LABORATORY Comment: This Type and Screen result is only valid at the [facility] Specimen Anatomical Collection Method Collection Time Receive d Time (Source) Location / / Volume Laterality Blood 10/12/2021 9:18 AM 9:25 EDT AM EDT Resulting Agency Comment Spec In Lab Rasheeda Baltazar MD BLOOD BANK ORDERABLES Performing Organization Address City/State/ZIP [place] [address] ABORH Recheck Status (10/12/2021 9:18 AM EDT)Only the most recent of2 results within the time period is included. [facility]ist Method Time Signature ABORH Type Completed [facility] LABORATORY Specimen Anatomical Collection Method Collection Time Receive d Time (Source) Location / / Volume Laterality Blood 10/12/2021 9:18 AM 2 9:25 EDT AM EDT Resulting Agency Comment Spec In Lab Rasheeda Baltazar MD BLOOD BANK ORDERABLES Performing Organization Address City/[facility]/ZIP [place] [address] ABO/Rh Typing (10/12/2021 9:18 AM EDT)Only the most recent of2 resultswithin the time period is included. P athologist Signature ABORh Type A Pos [facility] Specimen Anatomical Collection Method Collection Time Receive d Time (Source) Location / / Volume Laterality Blood 10/12/2021 9:18 AM 2 9:25 EDT AM EDT Resulting Agency Comment Spec In Lab Rasheeda Baltazar MD BLOOD BANK ORDERABLES Performing Organization Address City/[facility]/ZIP [place] [address] Antibody screen (10/12/2021 9:18 AM EDT)Only the most recent of2 resultswithin the time period is included. [facility] Method Time Signature Ab Screen Negative [facility] LABORATORY Expires at 10/15/2021 [facility] [id number] on: [facility] LABORATORY Specimen Anatomical Collection Method Collection Time Receive d Time (Source) Location / / Volume Laterality Blood 10/12/2021 9:18 AM 2 9:25 EDT AM EDT Resulting Agency Comment Spec In Lab Rasheeda Baltazar MD BLOOD BANK ORDERABLES Performing Organization Address City/[facility]/ZIP [place] [address] MRI Brain wwo Contrast (Generic) (10/09/2021 10:35 PM EDT) Anatomical Region Laterality Modality Head Magnetic Resonance Specimen (Source) Anatomical Location Collection Method / Collectio n Time Received Time / Laterality Volume Impressions 10/10/2021 9:42 AM EDT 1. ??Heterogeneously enhancing mass crossing the splenium of the corpus callosum most compatible with glioblastoma multif madiha. Surrounding parenchymal T2 prolongation compatible with infiltrativ e neoplasm and/or vasogenic edema. 2. ??Intralesional hemorrhage with intra ventricular extension to the left lateral and third ventricles. 3. ??Obstructive hydrocephalus resulting in temporal horn dilatation. Thank you for letting us participate in the care of this patient. ??If you are a health care provider and have any questi ons regarding this report, please contact the number below. ??For patients who have questions please contact the health healthcare network consultant that requested your imaging first. ? 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 COMPARISON: Outside CTs of the head 09/23/2021 and 10/10/2019 FINDINGS: Heterogeneously enhancing mass centered in the splenium of the corpus callosum measures a maximum of 4.1 x 5.8 cm on ax ial images and 3.0 cm craniocaudal. Multiple foci of intrinsic high T1 signa l associated with SWI signal loss consistent with intralesional hemorrhage . Heterogeneous signal on T2-weighted images. Multifocal diffusion restriction within the mass. The dominant mass is contiguous with an enhancing extension t o the subcortical left parietal lobe measuring 3.1 cm on axial images. There is significant surrounding T2 prol ongation in the bilateral parietal and temporal lobes. No other sites of abnorm al intracranial enhancement. SWI also reveals trace blood products in the left lateral ventricle and third ventricle. The temporal horns of the lateral ventri cles are dilated compatible with obstructing hydrocephalus. Bilateral par ietal sulcal effacement. No midline shift or downward herniation. Small enhancing lesion in the left parie yahaira calvarium has signal properties suggestive of a benign hemangioma or sheldon ous rodgers, well-circumscribed on recent CTs. No aggressive osseous lesions. Unre markable orbits. Procedure Note Stefan Contreras MD - 10/10/2021Format ting of this note might be different from the original. 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 COMPARISON: Outside CTs of the head 09/23/2021 and 10/10/2019 FINDINGS: Heterogeneously enhancing mass centered in the splenium of the corpus callosum measures a maximum of 4.1 x 5.8 cm on ax ial images and 3.0 cm craniocaudal. Multiple foci of intrinsic high T1 signa l associated with SWI signal loss consistent with intralesional hemorrhage . Heterogeneous signal on T2-weighted images. Multifocal diffusion restriction within the mass. The dominant mass is contiguous with an enhancing extension t o the subcortical left parietal lobe measuring 3.1 cm on axial images. There is significant surrounding T2 prol ongation in the bilateral parietal and temporal lobes. No other sites of abnorm al intracranial enhancement. SWI also reveals trace blood products in the left lateral ventricle and third ventricle. The temporal horns of the lateral ventri cles are dilated compatible with obstructing hydrocephalus. Bilateral par ietal sulcal effacement. No midline shift or downward herniation. Small enhancing lesion in the left parie yahaira calvarium has signal properties suggestive of a benign hemangioma or sheldon ous rodgers, well-circumscribed on recent CTs. No aggressive osseous lesions. Unre markable orbits. IMPRESSION 1. Heterogeneously enhancing mass crossi ng the splenium of the corpus callosum most compatible with glioblastoma multif madiha. Surrounding parenchymal T2 prolongation compatible with infiltrativ e neoplasm and/or vasogenic edema. 2. Intralesional hemorrhage with intrave ntricular extension to the left lateral and third ventricles. 3. Obstructive hydrocephalus resulting i n temporal horn dilatation. Thank you for letting us participate in the care of this patient. If you are a health care provider and have any questi ons regarding this report, please contact the number below. For patients w ho have questions please contact the health healthcare network consultant that requested your imaging first. Real Singh MD IM MRI ORDERABLES APTT (10/09/2021 6:16 PM EDT) athologist Signature PTT 25 25 - 37 sec [facility] Comment: The PTT is NOT appropriate for heparin m onitoring. Use the Anti-Xa level for heparin monitoring (HEP UFH) or LMWH mon itoring (HEP LMW). A PTT less than 37 seconds generally indicates adequate hem ostasis. Specimen Anatomical Collection Method Collection Time Receive d Time (Source) Location / / Volume Laterality Blood 10/09/2021 6:16 PM 6:31 EDT PM EDT Resulting Agency Comment Spec In Lab Serenity Wisdom APRN HEMATOLOGY ORDERABLES Performing Organization Address City/State/ZIP [place] [address] (ABNORMAL) Prothrombin Time (10/09/2021 6:16 PM EDT) athologist Signature PT 13.5 (H) 9.4 - 12.5 [facility] LABORATORY INR 1.2 [facility] Comment: An INR <2.0 indicates adequate procoagul ant activity for hemostasis in most patients without underlying bleeding dis orders, though the INR may not adequately reflect hemostatic capacity i n patients with liver disease and synthetic impairment. The recommended ta rget INR range for therapeutic anticoagulation is 2.0 ? 3.0 for most applications, though lower and higher ranges may be appropriate depending on c linical circumstances. Specimen Anatomical Collection Method Collection Time Receive d Time (Source) Location / / Volume Laterality Blood 10/09/2021 6:16 PM 2 6:31 EDT PM EDT Resulting Agency Comment Spec In Lab Serenity M Artis HOLLOWAY HEMATOLOGY ORDERABLES Performing Organization Address City/[facility]/ZIP [place] [address] Troponin (10/09/2021 6:16 PM EDT) P athologist Signature Troponin-T <0.01 0.00 - 0.00 [facility] ng/mL [facility]ORY Comment: The 99th percentile for Troponin T is le ss than 0.01 ng/mL, any detectable cTnT concentration using this assay should be considered elevated. According to the third universal definit ion of myocardial infarction the following criteria with a clinical prese ntation consistent with acute myocardial ischemia meets the diagnosis for a myocardial infarction (RI). Detection of a rise and/or fall of cTnT, with at least one value greater than the 99th percentile (> or = 0.01) and wi th at least one of the following ?? Symptoms of ischemia ?? New or presumed new significant ST-se gment-T wave (ST-T) changes or new left bundle branch block (LBBB) ?? Development of pathologic Q waves in the ECG ?? Imaging evidence of new loss of viabl e myocardium or new regional wall motion abnormality ?? Identification of an intracoronary th rombus by angiography or autopsy Samples for cTnT testing should be obtai abril serially upon first assessment and again 3 to 6 hours later. If the clinica l suspicion is high and previous samples have been negative an additional sample may be indicated. Reference: Third Rowland Definition of Myocardial Infarction. Journal of the [place] [employer] 2012;60:1581-98 Specimen Anatomical Collection Method Collection Time Receive d Time (Source) Location / / Volume Laterality Blood 10/09/2021 6:16 PM 2 6:31 EDT PM EDT Resulting Agency Comment Spec In Lab Serenity Wisdom APRN CHEMISTRY ORDERABLES Performing Organization Address City/[facility]/ZIP [place] [address] Electrolytes panel (10/09/2021 6:16 PM EDT) athologist Signature Sodium 135 135 - 145 [facility] mmol/L [facility]ORY Potassium 4.0 3.5 - 5.0 [facility] mmol/L [facility] Comment: Please note: ??Patients with WBC >100,00 0 may have falsely elevated Potassium levels. ??For accurate Potassium quantif ication in these patients send serum separator tube (gold top) for subsequent determinations. ??Contact the Clinical Chemistry Laboratory if there are any qu estions. Chloride 100 98 - 107 mmol/L [facility] CO2 24 22 - 31 mmol/L [facility] Anion Gap 11 5 - 15 mmol/L [facility]OR[facility] Specimen Anatomical Collection Method Collection Time Receive d Time (Source) Location / / Volume Laterality Blood 10/09/2021 6:16 PM 2 6:31 EDT PM EDT Resulting Agency Comment Spec In Lab Serenity Wisdom APRN CHEMISTRY ORDERABLES Performing Organization Address City/State/ZIP [place] [address] POCT Glucose (10/09/2021 5:27 PM EDT) athologist Signature POC Glucose 146 65 - 199 [facility] mg/dL [facility] Comment: Supplemental ranges: <140 mg/dL before meals <180 mg/dL all other times of the day Specimen Anatomical Collection Method Collection Time Receive d Time (Source) Location / / Volume Laterality Blood 10/09/2021 5:27 PM 2 5:27 EDT PM EDT Real Singh MD POINT OF CARE TEST ORDERABLE S Performing Organization Address City/State/ZIP [place] [address] SCAN DOC: ORDS - PROVIDER CARE (09/25/2021 12:00 AM EDT) Narrative 09/25/2021 12:00 AM EDT This result has an attachment that is no t available. Ordered by an unspecified provider. Scanning Provider MEDIA MGR SCAN EXT ORDR/RSLT from Last 3 Months Insurance Payer Benefit Plan / Subscriber ID Effective Phone Address T ype Group Dates MEDICARE MEDICARE PART [id number] 2020-Pres [phone] [place] [id number] MEDICARE MEDICARE [id number] 2020-Pres [phone] A [address] [place] [id number] [employer]BS [id number] 2018-Prese [address] [place] [address] (Work) Advance Directives Documents on File Type Date Recorded Patient Presser Machine Explanati on Advance Directives and 11/02/2021 12:28 PM ADVANC ED DIRECTIVE Living Will DNR/Out of hospital 10/28/2021 1:57 PM dnr colst Latest Code Status on File Code Status Date Activated Date Inactivated Comments Attempt Cardiopulmonary Resuscitation - 10/09/2021 3:16 PM 3:12 PM Inpatient Code Status decision made by: Patient Attempt Cardiopulmonary Resuscitation - Inpatient 10/09/2021 3 :16 PM 10/09/2021 3:16 PM Code Status decision made by: Patient Attempt Cardiopulmonary Resuscitation - 01/07/2021 1:28 PM 021 1:21 PM Inpatient Code Status decision made by: Patient Care Teams No Experience Relationship Specialty Start Date End Date Viki Elaine PA PCP - General Internal Medicine 12/04/[address] [place] [address] CHEY MICHAELS [id number]
--- OUTSIDE RECORDS SUMMARY | 2021-12-04 13:55 | XMS_ITS | Encounter Summary ---
:1955 Author Organization [facility] [place] [address] Care Team Providers Name Role Phone Viki Elaine Primary Care Provider [phone] Encounter Details Date Type Department Care Team Description 06/04/2021 Office Visit Radiation Oncology at Alvin Miguel MD Thyroid cancer [facility] Shady alvarado [place] [address] [place] [address] [phone] (Wo rk) Social History Tobacco Use Types [...] Sign Reading Time Taken Comments Blood Pressure 112/56 06/04/2021 2:59 PM EDT Pulse 66 06/04/2021 2:59 PM EDT Temperature 35.6 ??C (96 ??F) 06/04/2021 2:59 PM EDT Respiratory Rate 16 06/04/2021 2:59 PM EDT Oxygen Saturation 97% 06/04/2021 2:59 PM EDT Inhaled Oxygen Concentration - - Weight 75.3 kg (166 lb) 06/04/2021 3:00 PM EDT Height - - Body Mass Index 29.41 01/07/2021 6:23 AM EST documented in this encounter Patient Instructions Patient Saray Alvarez RN - 06/04/2021 2:59 PM EDT Therapeutic I-131 Checklist for Outpatients All Criteria must be checked. Yes Patient lives alone or can remain in designated areas within residence to minimize exposure to the general public and/or spread of Iodine contamination. Yes Adjacent rooms are not occupied. Yes After receiving radioiodine, patient can immediately drive directly home. Yes Patient can prepare meals, take meds, bathe and use toilet facilities without assistance. Yes Patient understands principals of exposure and contamination control. Yes Female patient is not or breast feeding. Yes Patient will not be in contact with children or women. Yes Visitors can be controlled except for safety checks and item drop offs. Yes Patient has telephone access. Yes Patient agrees to stay on premises for three days. Yes Patient can exclude visitors or common use from space for two weeks. Yes Patient can hold trash for two weeks. Yes Patient has been provided home instructions and emergency phone numbers. Yes Explicit directions to the patient residence have been provided in case of emergency. Yes A family member or significant other can be contacted. Tel# Yes Patient has an research study assistant who can abide by these rules and has been briefed on radiation risks and precautions. Yes The Treating Physician/Authorized User has provided a Written Directive. documented in this encounter Progress Notes Mike Miguel MD - 06/04/2021 3:00 PM EDT FOLLOW UP VISIT NOTE Lorin Cardona is a 66 y.o. female with mpT2 pN1b (Stage II) papillary thyroid cancer, s/p total thyroidectomy and central / MRNDsxn 01/07/21, 3.9 cm, AI (+, focal), LI (+), PNI (-), ETE (-), margins (-), 10/30 LN (+), involving left lateral neck, largest 1.5 cm, BLADIMIR (-). Adjuvant I-131, 80 mCi I-131 04/16/21. Changes in medical condition Pain: denies Secretions/Dryness: dysgeusia for a few weeks, now has resolved, no resolved Swallowing Function: no issues Nutrition / G tube: normal nutrition Skin: no issues GI: -N/V: no issues Other: Levothyroxine: 125 mcg Objective: Vitals: 06/04/21 1459 06/04/21 1500 BP: 112/56 Pulse: 66 Resp: 16 Temp: 35.6 ??C (96 ??F) SpO2: 97% Weight: 75.3 kg (166 lb) SKIN: no skin erythema NECK: Palpation reveals no adenopathy in cervical, SCLV, ICLV ivan basins. Labs/Images: EXAMINATION: NM I-131 WHOLE BODY SCAN POST THERAPY ?? CLINICAL HISTORY: s/p I-131 for thyroid cancer ?? TECHNIQUE: A therapeutic dose of 80 mCi of iodine-131 was administered on 04/17/2021. A whole body scan was performed 6 days later with images obtained in the anterior and posterior projections. A magnification view of the neck with a supplemental transmission scan was also obtained ?? COMPARISON: CT neck 11/26/2020 ?? FINDINGS: Minimal tracer uptake in the thyroid that is consistent with remnant functioning thyroid tissue. Normal activity in all other regions of the body including salivary glands and oropharynx. ?? IMPRESSION Activity is present in remnant thyroid tissue. No metastases are seen. Latest Reference Range & Units 06/04/21 13:47 Thyroglobulin <=54.9 ng/mL <0.2 Thyroglob Ab 0.0 - 40.0 IU/mL <20.0 TSH 0.27 - 4.20 mcIU/mL 0.04 (L) [1] (L): Data is abnormally low [1] Reference Interval (mcIU/mL): Females: First Trimester: 0.23-3.88 Second Trimester: 0.22-3.90 Third Trimester: 0.44-4.66 Assessment: No toxicity at this time. YVES on I-131 imaging, Tg is undetectable, and TSH is well suppressed. CTCAE TOXICITY GRADES (see below for gomez): Site Grade Skin 0 Xerostomia 0 Pharyngeal Mucositis 0 Dysphagia 0 Hoarseness 0 Plan: ?? Follow with Endocrinology, I will see her prn CTCAE v4.03 scales for reference Skin 0 1 2 3 4 No change from baseline Faint erythema or dry desquamation Moderate to brisk erythema; patchy moist desquamation mostly confined to skin folds & creases; moderate edema Moist desquamation in areas other than skin folds and creases; bleeding induced by minor trauma or abrasion Life threatening consequences; skin necrosis or ulceration of full thickness dermis; spontaneous bleeding; skin graft indicated Xerostomia 0 1 2 3 4 No change from baseline Symptomatic (dry or thick saliva) without significant dietary alteration Moderate sx: oral intake alterations (e.g. copious water, diet limited to purees or soft, moist foods) Inability to adequately aliment orally, TPN or PEG indicated NA Pharyngeal Mucositis: 0 1 2 3 4 No change from baseline Asymptomatic or mild symptoms; normal oral intake; mild pain but analgesia not indicated Moderate pain and analgesics indicated; altered oral intake; limiting instrumental ADLs Severe pain, unable to adequately aliment or hydrate orally; limiting self care ADLs Life threateningconsequences; urgent intervention indicated Dysphagia 0 1 2 3 4 No change from baseline Symptomatic, able to eat regular diet Symptomatic and altered eating/swallowing Severely altered eating/swallowing; tube feeds, TPN or hospitalization indicated Life threateningconsequences; urgent intervention indicated Hoarseness 0 1 2 3 4 No change from baseline Mild or intermittent voice change; fully understandable, self-resolves Moderate or persistent voice change; may require occasional repetition but understandable on telephone Severe voice change including predominantly whispered speech NA documented in this encounter Plan of Treatment [...] (TeleHealth) Hematology and Marija Baumann MD Oncology [facility]EMAT[facility] ONCOL [place], [place] [address] (Wo rk) 12/16/2021 Scheduled View Only Radiation Oncology 12/17/2021 Scheduled View Only Radiation Oncology 12/18/2021 Scheduled View Only Radiation Oncology 12/18/2021 Infusion Hematology and Oncology 12/21/2021 Scheduled View Only Radiation Oncology 12/22/2021 Scheduled View Only Radiation Oncology documented as of this encounter Visit Diagnoses Diagnosis Thyroid cancer Malignant neoplasm of thyroid gland documented in this encounter Care Teams Care Navigator Relationship Specialty Start Date End Date Viki Elaine PA PCP - General Internal Medicine 12/04/[address] [place] [address] [place] [address] documented as of this encounter
--- OUTSIDE RECORDS SUMMARY | 2021-12-04 13:55 | XMS_ITS | Encounter Summary ---
:1955 [place] [address] Care Team Providers Name Role Phone Viki Elaine Primary Care Provider [phone] Encounter Details Date Type Department Care Team Description 10/09/2021 [facility]illary [facility] [place] [address] NEUROSURGERY [phone] [place], [place] [address] (Wo rk) Social History Tobacco [...] Marija Baumann MD Oncology [facility] HEMATOLOG[facility] ONCOL [place], [place] [address] (Wo rk) 12/16/2021 Scheduled View Only Radiation Oncology 12/17/2021 Scheduled View Only Radiation Oncology 12/18/2021 Scheduled View Only Radiation Oncology 12/18/2021 Infusion Hematology and Oncology 12/21/2021 Scheduled View Only Radiation Oncology 12/22/2021 Scheduled View Only Radiation Oncology documented as of this encounter Procedures Procedure Name Priority Date/Time Associated Diagnosis Comme nts FILM LIBRARY Routine 10/09/2021 10:58 AM Results for this STORAGE ONLY CT EDT procedure ar e in HEAD the results section. documented in this encounter Results Film Library- Storage Only CT Head (10/09/2021 10:58 AM EDT) Specimen (Source) Anatomical Location Collection Method / Collectio n Time Received Time / Laterality Volume Narrative [facility] - 10/09/2021 10:58 AM EDT This exam is auto-finalizing. It's purpo se is for storage only. Fred Valdez MD IMG FILM LIBRARY ORDERABLES Performing Organization Address City/State/ZIP Code Phon e Number [facility] [place], [place] documented in this encounter Visit Diagnoses Not on filedocumented in this encounter Care Teams Database Software Technician Relationship Specialty Start Date End Date Viki Elaine PA PCP - General Internal Medicine 12/04/[address] [place] [address] [place] [address] documented as of this encounter
--- OUTSIDE RECORDS SUMMARY | 2021-12-04 13:55 | XMS_ITS | Encounter Summary ---
:1955 Author Organization [facility] [place] [address] Care Team Providers Name Role Phone Viki Elaine Primary Care Provider [phone] Encounter Details Date Type Department Care Team Description 09/24/2021 Notes Only Neurosurgery at [facility] Real Singh MD [facility] [place] [address] NEUROSURGERY [phone] [place], [place] [address] (Wo rk) Social History Tobacco [...] place to sleep or slept in a usp (including now)? Sex Assigned at Date Recorded Not on file documented as of this encounter Progress Notes Real Singh MD - 09/24/2021 9:48 AM EDT I spoke with the patient's primary provider. Apparently the patient has had a recent falloff in memory and cognitive ability. The patient does have a history of thyroid carcinoma. 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 I recommended that the patient have an MRI in an urgent fashion and then we would evaluate for biopsy versus resection. We have deferred on steroids at this time given that the patient has some edema but does not seem to be having any evidence of significant mass-effect. Additionally the patient may be consideredfor antiepileptic medication in order to prevent seizures. We will contact him with an appointment and certainly if they have any questions or concerns they can reach out to us documented in this encounter Plan of Treatment [...] [facility] [place] [id number] (Wo rk) 12/16/2021 Scheduled View Only Radiation Oncology 12/17/2021 Scheduled View Only Radiation Oncology 12/18/2021 Scheduled View Only Radiation Oncology 12/18/2021 Infusion Hematology and Oncology 12/21/2021 Scheduled View Only Radiation Oncology 12/22/2021 Scheduled View Only Radiation Oncology documented as of this encounter Visit Diagnoses Not on filedocumented in this encounter Care Teams It Architecture Consultant Relationship Specialty Start Date End Date Viki Elaine PA PCP - General Internal Medicine 12/04/[address] [place] [address] [place] [address] documented as of this encounter
--- OUTSIDE RECORDS SUMMARY | 2021-12-04 13:55 | XMS_ITS | Encounter Summary ---
:1955 Author Organization [facility] [place] [address] Care Team Providers Name Role Phone Viki Elaine Primary Care Provider Reason for Referral Home Health Care (Routine) - Authorized Specialty Diagnoses / Procedures Referred By Contact Refer red To Contact Diagnoses [facility] [address] [address] Fax: Referral ID Status Reason Start Date Expiration Visits Visits Date Requested Authorized [id number] Authorized Consult, 10/14/2021 04/12/2022 999 999 Test & Treat Consultation (Routine) - Closed Specialty Diagnoses / Procedures Referred By Contact Refer red To Contact Radiation Oncology Diagnoses Brain tumor Elida Thompson [facility] [place] [place] [address] [place] [address] Phone: Fax: Referral ID Status Reason Start Date Expiration Date Visits V isits Requested Authorized [id number] Closed Consult, 10/14/2021 10/14/2022 1 1 Test & Treat Consultation (Routine) - Closed Specialty Diagnoses / Procedures Referred By Contact Refer red To Contact Hematology and Oncology Diagnoses Brain tumor Elida Thompson Hem Onc Office A, [place] [address] [facility] [place] [address] [place] [address] Referral ID Status Reason Start Date Expiration Date Visits V isits Requested Authorized [id number] Closed Consult, 10/14/2021 10/14/2022 1 1 Test & Treat Reason for Visit Auth/Cert Specialty Diagnoses / Procedures Referred By Contact Refer red To Contact Diagnoses Brain tumor Increased confusion Kody Singh MD [facility] [place] [address] Referral ID Status Reason Start Date Expiration Date Visits Requ ested Visits Authorized [id number] 1 1 Encounter Details Date Type Department Care Team Description 10/09/2021 - Hospital Encounter Neuroscience Special Catie Singh Brain tumor 10/14/2021 Care Unit Letty Maradiaga MD [facility] NEUROS[address] [address] [phone] Social History Tobacco Use Types Packs/Day Years [...] place to sleep or slept in a long-term (including now)? Sex Assigned at Date Recorded Not on file documented as of this encounter Last Filed Vital Signs Vital Sign Reading Time Taken Comments Blood Pressure 106/49 10/14/2021 8:00 AM EDT Pulse 55 10/14/2021 8:00 AM EDT Temperature 37.1 ??C (98.7 ??F) 10/14/2021 4:00 AM EDT Respiratory Rate 14 10/14/2021 8:00 AM EDT Oxygen Saturation 96% 10/14/2021 8:00 AM EDT Inhaled Oxygen Concentration - - Weight 69.8 kg (153 lb 14.1 oz) 10/10/2021 12:00 AM EDT Height 161.3 cm (5' 3.5) 10/09/2021 5:25 PM EDT Body Mass Index 26.83 10/09/2021 8:17 PM EDT documented in this encounter Discharge Summaries Elida Thompson PA - 10/14/2021 7:10 AM EDT Patient Name: Lorin Cardona Patient Age: 66 y.o. Admit date: 10/09/2021 Discharge Date and Time: 10/14/21 10:46 AM Attending Physician: Kody Singh MD Discharging Provider: INEZ Ervin Discharging Service: NEUROSURGERY Operations/Major Procedures: 10/13/2021: Kody Singh MD: LEFT stereotactic biopsy Active Hospital Problems: Active Hospital Problems Diagnosis ??? Brain tumor Resolved Hospital Problems No resolved problems to display. Active Non Hospital Problems: Active Non-Hospital Problems Diagnosis ??? Thyroid cancer History of Presentation: Per review of relevant records Lorin Cardona is a 66 y.o. female, left handed, not on APAC with a PMHx significant for migraine, papillary thyroid cancer s/p total thyroidectomy (now hypothyroid) who presented to OSH for progressive confusion, AL, nausea and vomiting found to have an intracranial mass for which patient was transferred to [facility] for further management and Neurosurgical evaluation. ?? History obtained from patient's , Tang, as she is unable to give much information due to hermental status. He tells me that she has been unlike herself for about 4-5 months, beginning with simple forgetfulness and repeating herself. Since then over the past month, has been increasingly disoriented even to how to get to the bathroom in her own house. She was seen by PCP 09/24 with CTH showing a new intracranial mass centered on the splenium of the corpus callosum with associated ventriculomegaly, cerebral edema, and focal area of hyperdensity possibly representing small hemorrhage. NSGY called via tumor hotline at that time with recommendation for urgent outpatient MRI and clinic follow up on 10/13, however patient developed nausea/vomiting, headache and more severe confusion last night prompting OSH ED presentation. Tang denies any seizure like activity in recent months/days. Repeat CTH performed, labs notable for Na 133, received Keppra 1g and Decadron 10mg IV. She was subsequently trans ferred to [facility] for further care. ?? Today, Lorin is arousable in ICU bed to repeated voice and light stim. She tells me she is tired butpresently denies headache, nausea, vomiting, or numbness. Hospital Course: Lorin Cardona presented 10/09/2021 in transfer from OSH and was admitted to the NCCU under the neurosurgery service for close neurological observation, and further work-up and management of her intracranial mass with concern for ventriculomegaly. She was started on keppra for seizure prophylaxis, and de xamethasone for cerebral edema. 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 She was transferred out of the NCCU on HD#2. On 10/13/2021 patient taken to the OR with Dr. Singh and underwent stereotactic biopsy. Incision wasclosed with nylon sutures. There were no complications with the procedure. Patient tolerated the procedure well. Final intra-op pathology pending at time of discharge. Post-op imaging was appropriate. Patient was evaluated by rehab services and deemed appropriate for home with VNA. Patient was discharged in stable condition 10/14/21 At time of discharge patient is afebrile, tolerating a regular diet, ambulating with a walker and assistance, voiding spontaneously, and managing pain with oral pain medications. Important Studies and Lab Data: Labs: Recent Results (from the past 24 hour(s)) Magnesium Result Value Ref Range Magnesium 0.83 0.69 - 1.07 mmol/L Phosphorus Result Value Ref Range Phosphorus 3.4 2.5 - 4.5 mg/dL Basic Metabolic Panel (non-fasting) Result Value Ref Range Glucose Lvl 153 65 - 199 mg/dL BUN 20 (H) 8 - 18 mg/dL Creatinine 0.77 0.70 - 1.20 mg/dL Sodium 137 135 - 145 mmol/L Potassium 4.3 3.5 - 5.0 mmol/L Chloride 104 98 - 107 mmol/L CO2 24 22 - 31 mmol/L Anion Gap 9 5 - 15 mmol/L Calcium 8.5 8.5 - 10.5 mg/dL Estimated GFR 84 >=60 mL/min/1.73 m?? Hemogram Result Value Ref Range WBC 13.8 (H) 4.0 - 9.5 x10(3)/mcL RBC 4.16 4.00 - 5.21 x10(6)/mcL Hemoglobin 13.6 11.7 - 15.5 g/dL Hematocrit 39.8 35.7 - 45.8 % MCV 95.7 (H) 82.6 - 94.4 fL MCH 32.7 (H) 27.1 - 32.0 pg MCHC 34.2 31.7 - 35.0 g/dL Platelets 159 145 - 357 x10(3)/mcL RDWSD 46.8 (H) 37.0 - 46.0 fL RDWCV 13.2 11.5 - 14.1 % MPV 9.6 7.6 - 12.9 fL nRBC % Auto 0.0 % nRBC Abs Auto 0.000 0.000 - 0.000 x10(3)/mcL Differential, Automated Result Value Ref Range Neutrophils % 89.8 % Neutr Abs (ANC) 12.43 (H) 1.70 - 6.10 x10(3)/mcL Lymphocytes % 2.7 % Lymphocytes Abs 0.4 (L) 0.9 - 3.2 x10(3)/mcL Monocytes % 6.8 % Monocyte Abs 0.9 0.3 - 0.9 x10(3)/mcL Eosinophils % 0.0 % Eosinophils Abs 0.0 0.0 - 0.4 x10(3)/mcL Basophils % 0.1 % Basophils Abs 0.0 0.0 - 0.1 x10(3)/mcL Immature Gran % 0.60 % Radha Gran Abs 0.08 (H) 0.00 - 0.04 x10(3)/mcL Studies: Results for orders placed or performed during the hospital encounter of 10/09/21 MRI Brain wwo Contrast (Generic) (Exam End: 10/09/2021 10:35 PM) Impression 1. 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 Surrounding parenchymal T2 prolongation compatible with infiltrative neoplasm and/or vasogenic edema. 2. Intralesional hemorrhage with intraventricular extension to the left lateral and third ventricles. 3. Obstructive hydrocephalus resulting in temporal horn dilatation. Thank you for letting us participate in the care of this patient. If you are a health care provider and have any questions regarding this report, please contact the number below. For patients who have questions please contact the health critical care cns that requested your imaging first. Head wo Contrast (Generic) (Exam End: 10/13/2021 6:39 PM) Impression Expected postbiopsy changes. Thank you for letting us participate in the care of this patient. If you are a health care provider and have any questions regarding this report, please contact the number below. For patients who have questions please contact the health critical care cns that requested your imaging first. Pending Studies and Lab Data: Final Intra-Op Pathology Discharge Condition: Stable Discharge to: Home Future Appointments and Orders Future Orders Complete By Expires Referral to Home Health [REF34 Custom] As directed Process Instructions: If no progress note charted, please enter Clinical details in comments. Scheduling Instructions: Comments: Please evaluate Lorin Cardona for admission to [facility]. [address] [place] [id number] (home) Date of : 1955 Outpatient Person to contact: Pull from Emergency Contact in Demographics: Extended Emergency Contact Information Primary Emergency Contact: Tang Cardona Mobile Relation: Spouse Patient is aware of referral: yes Referring Provider Call-back Physician to follow (the person listed here will be responsible for signing ongoing orders): PCP Requested Start of Care Date: Within 2-3 days Special Instructions: I attest that I or another qualified licensed provider saw Lorin Cardona 90 days prior to or 30 days post admission and this face to face encounter meets the necessary Home Health requirements. The face to face encounter occurred on 10/14/2021 PLEASE PROVIDE D/C DATE HERE. DOCUMENTATION FOR VNA SERVICES (INCLUDING THOSE PATIENTS WITH MEDICARE COVERAGE REQUIRING HOME VNA SERVICES AND/OR HOSPICE SERVICES) PATIENT'S LOCATION: Lorin Cardona [address] [place] [phone] (home) Cell: Telephone Information: Deputy Chief Counsel's Name: pt and family In discussion with the attending physician, it is certified that this patient is under their care and that they, or a Nurse Practitioner,Clinical Nurse specialist or Physician Building Supplies Salesperson Retail who is working directly with them, had a face to face encounter that meets the physician face to face encounter requirements with this patient on 10/14/2021 ( please enter DC date here) The encounter with the patient was in whole, or in part, for the following medical condition, which is the primary reason for home health care services: brain tumor In discussion with the provider, it is certified that, based on their findings, the following services are medically necessary for home health services. To provide the following care/treatments with the clinical findings supporting the need for servicesas follows: HOME CARE ORDERS: RN ORDERS:Assess wound or incision, vital signs, cardiopulmonary status, nutrition, hydration, elimination, meds effectiveness and management; reinforce education re health issues PT ORDERS: Continue rehab for endurance, gait stability and strength with mobility and transfers. Home safety evaluation. Home exercise program if appropriate. OT: assess and continue rehab for managing ADL's. HOME HEALTH CARE AGENCY: [facility] [address] [place] [address] Start of care: 24-48 hours post discharge FOR MEDICARE ONLY: (please delete this section if not Medicare) In discussion with the attending physician, it is certified that the clinical findings support that this patient is homebound because absences from home require considerable and taxing effort due to: Patient is unable to leave home without assistance and ambulation is severely limited by pain, decreased strength and/or endurance., Deteriorating mental status and/or cognitive impairment and is unable to leave home unsupervised., and Unsteady Gait, poor balance, requiring assistive devices and/or assistance of another Please note that any additional orders needs or changes will need to be obtained from this patient'sPCP: INEZ Lindsey [address] [place] [address] / [facility] [address] All A agencies which cover the area of patient's residence have been reviewed, either verbally or in writing, and patient/family have chosen the home health care agency noted Questions: Disciplines Requested: Nursing Physical Therapy Occupational Therapy Referral to Neuro-Oncology [[id number] Custom] As directed Process Instructions: If no progress note charted, please enter Clinical details in comments. 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 Pt requires r/t gait instability secondary to brain tumor. Questions: Vendor [facility]Contact information[facility] Comment - ht-5'3, wt- 153 lbs Discharge Medications: Your Medications New Medications Dose Details dexAMETHasone 4 mg Tab Commonly known as: Decadron Take 1 tablet by mouth every 6 hours. 4 mg Quantity: 80 tablet Refills: 0 docusate sodium 100 mg Cap Commonly known as: Colace Take 1 capsule by mouth 2 times daily for 10 days. 100 mg Quantity: 20 capsule Refills: 0 levETIRAcetam 500 mg Tab Commonly known as: Keppra Take 1 tablet by mouth 2 times daily. 500 mg Quantity: 60 tablet Refills: 1 pantoprazole EC 20 mg Tbec Commonly known as: Protonix Take 1 tablet by mouth daily. Start taking on: October 15, 2021 20 mg Quantity: 30 tablet Refills: 1 sodium chloride 1 gram Tab Take 1 tablet by mouth daily for 14 days. 1 g Quantity: 14 tablet Refills: 0 Continued medications with new dosing Dose Details calcium carbonate 200 mg calcium (500 mg) Chew Commonly known as: Tums Take 2 tablets by mouth 3 times daily (after meals). What changed: ?? how much to take ?? when to take this 1,000 mg Refills: 0 Continued medications, unchanged Dose Details acetaminophen 500 mg Tab Commonly known as: Tylenol Take 2 tablets by mouth as needed for Pain. 1,000 mg Refills: 0 ascorbic acid (Vitamin C) 500 mg Tab Commonly known as: Vitamin C Take 500 mg by mouth every other day. 500 mg Refills: 0 BENADRYL ALLERGY ORAL Take by mouth. Refills: 0 calcium citrate 200 mg (950 mg) Tab Commonly known as: Calcitrate Take 1 tablet by mouth daily. Taking 400mg daily 1 tablet Refills: 0 FISH OIL ORAL Take by mouth daily. Taking 1000mg every other day Refills: 0 levothyroxine 100 mcg Tab Commonly known as: Synthroid Take 1 tablet by mouth daily. 100 mcg Quantity: 90 tablet Refills: 3 multivitamin Cap Take 1 capsule by mouth every other day. 1 capsule Refills: 0 STOPPED Medications Ibuprofen 200 mg Cap omeprazole 20 mg Cpdr Commonly known as: PriLOSEC Updated Allergies/ADRs: No Known Allergies Follow-up Recommendations for Providers: Please see Discharge Instructions Outpatient referrals: You have been referred to the following clinics for outpatient follow-up. Please call the office if you have not received an appointment in the mail within 2 weeks of discharge from the hospital. Neuro-oncology [phone] Radiation oncology, Instructions Given to Patient at Discharge: Patient Instructions CRANIOTOMY FOR BRAIN TUMOR DISCHARGE INSTRUCTIONS PRESCRIPTION INSTRUCTIONS: Please see the medication reconciliation list on this discharge summary for a current list of your medications. Stop the use of blood thinning medications until instructed otherwise by your surgical team. This includes medications known as antiplatelet, anticoagulant, and non-steroidal anti-inflammatory (NSAIDs)drugs. Common olsm-mhz-tpzcirm medications which should be avoided include Aspirin, ibuprofen, and naproxenamong others. These medications are sometimes combined with other drugs or are sold under a trade name. Common prescription medications which should be avoided include Plavix (clopidogrel) and Coumadin(warfarin) among others. The following medications are commonly prescribed after surgery. An [x] indicates that these medications have been prescribed for you. [x] Antiepileptics - seizure prophylaxis: Keppra (levetiracetam) or Dilantin (phenytoin) Antiepileptics are commonly prescribed after surgery to prevent seizures. Take the medication as directed. At your follow-up appointment with Neurosurgery, ask how long you need to continue taking thismedication. If you have difficulty affording this medication please contact us for prescription assistance. [x] Steroids - anti-inflammatory: Decadron (dexamethasone) Steroids are commonly prescribed after surgery to reduce swelling in the brain. Please continue on dexamethasone 4mg every 6 hours until you are seen in the Neuro-Oncology Clinic. Please discuss further management of this medication with your Neuro-Oncologist. [x] PPIs or H2 blockers - Gastrointestinal prophylaxis: medications such Protonix or Pepcid (famotidine) PPIs or H2 blockers are commonly prescribed after surgery to protect your stomach while you are taking steroids. Once you have finished taking the steroids you may stop this medication. [x] Stool softeners - Constipation relief: medications such as docusate or senakot Stool softeners are commonly used after surgery to help make stools easier to pass. These medications can be obtained [id number] and their use is recommended on an as needed basis for hard or difficult stools. They should be discontinued for loose stools and diarrhea. WHEN TO SEEK MEDICAL CARE: Signs or symptoms of an infection - Fever over 101F - Redness, swelling, or increasing pain around your incision - Drainage of pus, blood, or clear fluid from your incision New neurologic symptoms - Worsening headaches not controlled with your pain medication - Drowsiness, confusion, and lethargy - Visual changes - Difficulty speaking or slurred speech - Facial droop - New weakness or sensory changes - New unsteadiness when walking - Seizures Constipation not relieved by diet and over the counter stool softeners and laxatives Nausea/vomiting (upset stomach) not controlled with anti-nausea medication Symptoms of a deep venous thrombosis (DVT) or pulmonary embolism (PE): - Swelling/warmth/redness of the leg - Pain in the leg, which can be worse with standing or walking - Chest pain or shortness of breath To help prevent a DVT: - Exercise regularly. Walking, at least several times daily, is helpful. - Ankle pump exercises (like pressing and releasing the gas pedal) should be done regularly. - Keep hydrated with water or other clear liquids (coffee/tea/cola can dehydrate you). - Avoid alcohol and crossing your legs. - Remember not to sit or lay in bed, while awake, for prolonged amounts of time. WOUND CARE: - Keep incisional site clean and dry. You can remove your dressing 2 days after surgery, if not removed prior to discharge. - You may shower and shampoo incisional site, per your usual routine, 4 days after surgery. DIET: - You may resume your usual diet. - A well-balanced diet is recommended for wound healing. - Prune juice or prunes can be added to your diet to assist with any constipation. ACTIVITY: - You may increase your activities as tolerated. - Restrict strenuous activity (such as running, jumping, jogging, shoveling, etc.) until cleared by your surgical team. DRIVING: - Do not drive while taking narcotic pain medication. - You may return to driving 2 weeks after surgery. FOLLOW UP PLAN: Incision: Please follow up for suture removal on approximately 10/27/2021 with your Primary Care Provider or with the Neurosurgery PROMOTION PRODUCER/RN. Appointments: Please follow up in the Neurosurgery Clinic in 1 week via a telehealth appointment with Dr. Singh to discuss the results of your pathology. Please call the Neurosurgery Office at [phone] if you do not receive a scheduled appointment within two weeks. Imaging: No Imaging required at follow-up. A referral was placed to Neuro-Oncology on discharge. Please follow up in the Neuro-Oncology Clinic in two weeks if indicated after discussing pathology. Please call the Neuro-Oncology Office at [phone] if you do not receive a scheduled appointment. A referral was placed to Radiation-Oncology. Please follow up in the Radiation Oncology Clinic in two weeks if indicated after discussing pathology. Please call the Radiation Oncology Office at [phone] if you do not receive a scheduled appointment. Please follow-up with your PCP within 1-2 weeks of discharge for a re-check of your blood sodium level. You are being discharged on salt tablets for hyponatremia. HOW TO REACH NEUROSURGERY Office Hours (Tuesday through Tuesday 8am-5pm): Call On weekends or after office hours (after 5pm or before 8am): Call [phone] and ask the impregnator operator to page the Neurosurgery Resident/Advanced Practice Provider customer contact specialist. *Your surgeon may not be afternoon babysitter (especially after office hours or on the weekend) so be ready to tell about yourself and your surgery when you call. Neurosurgery Providers Adult Neurosurgery Dr. Fred Singh Pediatric Neurosurgery Dr. Alejandra Osuna Advanced Practice Providers Aylin Montelongo, Nurse Practitioner (outpatient) Elida Thompson, Physician Building Supplies Salesperson Retail (inpatient) Yulia Grove, Nurse Practitioner (inpatient) Anupama Corrigan, Physician Building Supplies Salesperson Retail (inpatient) Jaron Hawthorne, Nurse Practitioner (outpatient: pediatric) Anupama Marks, Physician Building Supplies Salesperson Retail (inpatient) Shira Hernandez, Nurse Practitioner (outpatient: vascular) Gema Garvin, Physician Building Supplies Salesperson Retail (outpatient: spine) Mike Quiles, Nurse Practitioner (inpatient/outpatient) Shlomo Salinas, Physician Building Supplies Salesperson Retail (outpatient) Africa Fraser, Nurse Practitioner (outpatient: neuro-oncology) Outpatient Nurses Monserrat Young HOW TO REACH NEUROSURGERY Office Hours (Tuesday through Tuesday 8am-5pm): Call On weekends or after office hours (after 5pm or before 8am): Call [phone] and ask the impregnator operator to page the Neurosurgery Resident/Advanced Practice Provider customer contact specialist. *Your surgeon may not be afternoon babysitter (especially after office hours or on the weekend) so be ready to tell about yourself and your surgery when you call. Neurosurgery Providers Adult Neurosurgery Dr. Fred Singh Pediatric Neurosurgery Dr. Alejandra Osuna Advanced Practice Providers Aylin Montelongo, Nurse Practitioner (outpatient) Elida Thompson, Physician Building Supplies Salesperson Retail (inpatient) Yulia Grove, Nurse Practitioner (inpatient) Anupama Corrigan, Physician Building Supplies Salesperson Retail (inpatient) Jaron Hawthorne, Nurse Practitioner (outpatient: pediatric) Anupama Marks, Physician Building Supplies Salesperson Retail (inpatient) Shira Hernandez, Nurse Practitioner (outpatient: vascular) Gema Garvin, Physician Building Supplies Salesperson Retail (outpatient: spine) Mike Quiles, Nurse Practitioner (inpatient/outpatient) Shlomo Salinas, Physician Building Supplies Salesperson Retail (outpatient) Africa Fraser, Nurse Practitioner (outpatient: neuro-oncology) Outpatient Nurses INEZ Wilson 10/14/2021 documented in this encounter Discharge Instructions Patient InstructionsElida Thompson PA - 10/13/2021 2:19 PM EDT CRANIOTOMY FOR BRAIN TUMOR DISCHARGE INSTRUCTIONS PRESCRIPTION INSTRUCTIONS: Please see the medication reconciliation list on this discharge summary for a current list of your medications. Stop the use of blood thinning medications until instructed otherwise by your surgical team. This includes medications known as antiplatelet, anticoagulant, and non-steroidal anti-inflammatory (NSAIDs)drugs. Common lyxm-kke-cbtscqo medications which should be avoided include Aspirin, ibuprofen, and naproxenamong others. These medications are sometimes combined with other drugs or are sold under a trade name. Common prescription medications which should be avoided include Plavix (clopidogrel) and Coumadin(warfarin) among others. The following medications are commonly prescribed after surgery. An [x] indicates that these medications have been prescribed for you. [x] Antiepileptics - seizure prophylaxis: Keppra (levetiracetam) or Dilantin (phenytoin) Antiepileptics are commonly prescribed after surgery to prevent seizures. Take the medication as directed. At your follow-up appointment with Neurosurgery, ask how long you need to continue taking thismedication. If you have difficulty affording this medication please contact us for prescription assistance. [x] Steroids - anti-inflammatory: Decadron (dexamethasone) Steroids are commonly prescribed after surgery to reduce swelling in the brain. Please continue on dexamethasone 4mg every 6 hours until you are seen in the Neuro-Oncology Clinic. Please discuss further management of this medication with your Neuro-Oncologist. [x] PPIs or H2 blockers - Gastrointestinal prophylaxis: medications such Protonix or Pepcid (famotidine) PPIs or H2 blockers are commonly prescribed after surgery to protect your stomach while you are taking steroids. Once you have finished taking the steroids you may stop this medication. [x] Stool softeners - Constipation relief: medications such as docusate or senakot Stool softeners are commonly used after surgery to help make stools easier to pass. These medications can be obtained nupr-phq-uwnlzfi and their use is recommended on an as needed basis for hard or difficult stools. They should be discontinued for loose stools and diarrhea. WHEN TO SEEK MEDICAL CARE: Signs or symptoms of an infection - Fever over 101F - Redness, swelling, or increasing pain around your incision - Drainage of pus, blood, or clear fluid from your incision New neurologic symptoms - Worsening headaches not controlled with your pain medication - Drowsiness, confusion, and lethargy - Visual changes - Difficulty speaking or slurred speech - Facial droop - New weakness or sensory changes - New unsteadiness when walking - Seizures Constipation not relieved by diet and over the counter stool softeners and laxatives Nausea/vomiting (upset stomach) not controlled with anti-nausea medication Symptoms of a deep venous thrombosis (DVT) or pulmonary embolism (PE): - Swelling/warmth/redness of the leg - Pain in the leg, which can be worse with standing or walking - Chest pain or shortness of breath To help prevent a DVT: - Exercise regularly. Walking, at least several times daily, is helpful. - Ankle pump exercises (like pressing and releasing the gas pedal) should be done regularly. - Keep hydrated with water or other clear liquids (coffee/tea/cola can dehydrate you). - Avoid alcohol and crossing your legs. - Remember not to sit or lay in bed, while awake, for prolonged amounts of time. WOUND CARE: - Keep incisional site clean and dry. You can remove your dressing 2 days after surgery, if not removed prior to discharge. - You may shower and shampoo incisional site, per your usual routine, 4 days after surgery. DIET: - You may resume your usual diet. - A well-balanced diet is recommended for wound healing. - Prune juice or prunes can be added to your diet to assist with any constipation. ACTIVITY: - You may increase your activities as tolerated. - Restrict strenuous activity (such as running, jumping, jogging, shoveling, etc.) until cleared by your surgical team. DRIVING: - Do not drive while taking narcotic pain medication. - You may return to driving 2 weeks after surgery. FOLLOW UP PLAN: Incision: Please follow up for suture removal on approximately 10/27/2021 with your Primary Care Provider or with the Neurosurgery PROMOTION PRODUCER/RN. Appointments: Please follow up in the Neurosurgery Clinic in 1 week via a telehealth appointment with Dr. Singh to discuss the results of your pathology. Please call the Neurosurgery Office at [phone] if you do not receive a scheduled appointment within two weeks. Imaging: No Imaging required at follow-up. A referral was placed to Neuro-Oncology on discharge. Please follow up in the Neuro-Oncology Clinic in two weeks if indicated after discussing pathology. Please call the Neuro-Oncology Office at [phone] if you do not receive a scheduled appointment. A referral was placed to Radiation-Oncology. Please follow up in the Radiation Oncology Clinic in two weeks if indicated after discussing pathology. Please call the Radiation Oncology Office at [phone] if you do not receive a scheduled appointment. Please follow-up with your PCP within 1-2 weeks of discharge for a re-check of your blood sodium level. You are being discharged on salt tablets for hyponatremia. HOW TO REACH NEUROSURGERY Office Hours (Tuesday through Tuesday 8am-5pm): Call On weekends or after office hours (after 5pm or before 8am): Call [phone] and ask the impregnator operator to page the Neurosurgery Resident/Advanced Practice Provider customer contact specialist. *Your surgeon may not be afternoon babysitter (especially after office hours or on the weekend) so be ready to tell about yourself and your surgery when you call. Neurosurgery Providers Adult Neurosurgery Dr. Fred Singh Pediatric Neurosurgery Dr. Alejandra Osuna Advanced Practice Providers Aylin Montelongo, Nurse Practitioner (outpatient) Elida Thompson, Physician Building Supplies Salesperson Retail (inpatient) Yulia Grove, Nurse Practitioner (inpatient) Anupama Corrigan, Physician Building Supplies Salesperson Retail (inpatient) Jaron Hawthorne, Nurse Practitioner (outpatient: pediatric) Anupama Marks, Physician Building Supplies Salesperson Retail (inpatient) Shira Hernandez, Nurse Practitioner (outpatient: vascular) Gema Garvin, Physician Building Supplies Salesperson Retail (outpatient: spine) Mike Quiles, Nurse Practitioner (inpatient/outpatient) Shlomo Salinas, Physician Building Supplies Salesperson Retail (outpatient) Africa Fraser, Nurse Practitioner (outpatient: neuro-oncology) Outpatient Nurses Mnoserrat Young documented in this encounter Medications at Time of Discharge Medication Sig Dispensed Refills Start Date End Date pantoprazole EC (Protonix) Take 1 tablet by 30 tablet 1 09/2021 20 mg Tablet, Delayed mouth daily. Release (E.C.) levothyroxine (Synthroid) Take 1 tablet by 90 tablet 3 09/2021 100 mcg Tablet mouth daily. calcium citrate Take 1 tablet by 0 (Calcitrate) 200 mg (950 mouth daily. mg) Tablet Taking 400mg daily acetaminophen (Tylenol) Take 2 tablets by 0 01/08 500 mg Tablet mouth as needed for Pain. calcium carbonate (Tums) Take 2 tablets by 0 03/2020 200 mg calcium (500 mg) mouth 3 times Tablet, Chewable daily (after meals). diphenhydramine HCl Take by mouth. 0 (BENADRYL ALLERGY ORAL) docosahexaenoic acid/epa Take by mouth 0 (FISH OIL ORAL) daily. Taking 1000mg every other day multivitamin Capsule Take 1 capsule by 0 mouth every other day. ascorbic acid, Vitamin C, Take 500 mg by 0 (Vitamin C) 500 mg Tablet mouth every other day. docusate sodium (Colace) Take 1 capsule by 20 capsule 0 08/202110/24/2021 100 mg Capsule mouth 2 times daily for 10 days. sodium chloride 1 gram Take 1 tablet by 14 tablet 0 022 10/28/2021 Tablet mouth daily for 14 days. levETIRAcetam (Keppra) 500 Take 1 tablet by 60 tablet 1 08/202112/03/2021 mg Tablet mouth 2 times daily. dexAMETHasone (Decadron) 4 Take 1 tablet by 80 tablet 0 08/202112/03/2021 mg Tablet mouth every 6 hours. documented as of this encounter Progress Notes Vidhya Gonzales, PT - 10/14/2021 10:31 AM EDT Physical Therapy Evaluation Patient profile: Lorin Cardona is a 66 y.o. female [facility]09[facility] 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 OR 10-13-21: for biopsy of brain tumor. Per spouse her symptoms have improved with Dexamethasone and Keppra. Final plans for treatment of her disease is pending results of yesterday's biopsy. Patient with the following active problems: Past Medical History: Diagnosis Date ??? GERD (gastroesophageal reflux disease) ??? Kidney stones ??? Osteopenia ??? Postoperative hypothyroidism ??? Thyroid cancer Past Surgical History: Procedure Laterality Date ??? PRG EMG, LARYNX N/A 01/07/2021 FACIAL NERVE MONITORING, SETUP LARYNGEAL (WRVU 1.57) performed by Fabienne De Dios MD at [facility] MAIN OR ??? PRO REMOVAL NODES, NECK, CERV MOD RAD Left 01/07/2021 @CERVICAL LYMPHADENECTOMY (MODIFIED RADICAL NECK DISSECTION) (WRVU 23.95) performed by Fabienne De Dios MD at [facility] MAIN OR ??? PRO STEREOTACTIC BRAIN BX, ASPIR, EXC Left 10/13/2021 @STEREOTACTIC BX, ASP, OR EXC.-INTRACRANIAL LESION (WRVU 19.83) performed by Kody Singh MD at [facility] MAIN OR ??? PRO THYROIDECTOMY, MALIG, LTD NECK SURG Bilateral 01/07/2021 THYROIDECTOMY, FOR MALIGNANCY, LIMITED NECK DISSECTION (WRVU 22.01) performed by Tony De Dios MD at [facility] MAIN OR Social History: Lives with spouse in [place], [place] in a one level home although their basement is finished. Bathroom Set-up: tub shower Stairs: 2 to enter home Baseline Mobility: independent, working in garden all summer. Equipment at home: none Fall history: no Precautions/Special Considerations: Act as tolerated, up with supervision, Diet: regular. Mobility and Positioning Recommendations: ?? Pt. should utilize rolling walker & close supervision x 1 for ambulation and transfers with nursing. ?? Please encourage up to chair for meal times as able. ?? Pt encouraged to ambulate with staff, getting into the bathroom & walking in mcgrath daily as able. Subjective: ???I can't remember, my can tell you.?? I've been out in my garden all summer. I feel like I'm tipping over when I do that (walking while turning her head)- so will try to keephead still during walks. Objective: Pt seen for evaluation today. Pain: My headache is better now than it was @ home but not completely gone. Cardiopulmonary: HR: 69 bpm SpO2: 98 % RA BP: 106/49 mmHg in bed BP: 129/74 following activity Mental Status: Alert, oriented to self & family, oriented to place, couldn't remember date but knows it's 2021. following commands & pleasant. Vision: reading clock correctly, spouse put on her glasses for her, she reports no changes. Skin: crani cap over scalp after biopsy. Musculoskeletal: (L) hand dominant ROM/Strength: WFL Sensation: intact Bed Mobility: Supine > Sit: independent , sitting EOB (I) with good balance. Transfers: Sit >< Stand: independent with rolling walker. Bed to Chair: walker and supervision Gait: Distance: 250' Device used: rolling walker Level of assist: supervised Gait mechanics: able to keep steady aria but when I challenged her to walk and turn head or look up/down with head then she reports feeling off balance. Spouse shown use of gait belt and can take home in case she needs more assistance with balance in future days. Stairs: she climbed up & down 3 steps with railing or 1 person assist one step @ a time, legs are strong. Balance: Sitting: NORMAL- EOB able to lift legs to don pants & socks. Standing / Gait: FAIR- feels off balance but only occasional had a side-step so feels more confidentwith a walker. Education/Exercise: patient and spouse has been educated on Role of therapy, Discharge planning and and use of gait belt.. Pt was left in recliner chair with call beavers within reach and alarm in place. Patient status, treatment, and mobility recommendations have been discussed with nursing. Assessment: Pt was seen today for physical therapy evaluation. Pt presents POD#1 s/p biopsy of intracranial tumor and deficits in balance, skin integrity and memory, poor STM and poor recall when askedto remember some words. These impairments currently impact patient's ability to safely and independently perform functional mobility tasks including ambulation, daily activities and remembering to takemedications so spouse & family will need to help with some of her care. She moves well using a walker today and managed on stairs with a railing but they have a few steps to enter home without railing and spouse agreed to help her with balance. Improved on dexamethasone & await biopsy results to direct further care. Plan: Therapy Frequency (PT): evaluation only, anticipate d/c home soon. Patient/family understand and agree with plan. Discharge Recommendations: Anticipated Discharge Disposition (PT): home with supervision (supportivespouse/retired) when medically ready for hospital discharge. Consult Recommendations: CM into visit @ end of therapy session & they are agreeable to home therapy/VNA but CM not sure if her region VNA full and may need to go to out-pt ; she'd benefit from home safety eval and help to guide family with care. Equipment needs: Anticipated Equipment Needs at Discharge (PT): walker, front wheeled, shower chair Goals achieved today: 1. Pt. to perform bed mobility independently. 2. Pt. to perform sit><stand transfers independently and with supervision . 3. Pt. to ambulate 200 feet with modified independence and with supervision using a a front wheeled walker. 4. Pt. to ambulate up/down 3 step/stairs using one hand hold with modified independence and with CGA( to enter home). 5. Pt will tolerate activity progression with stable pain level & vital signs. Thank you for this consult. VIDHYA GONZALES, PT Pager: [phone] Physical Therapy Inpatient Rehabilitation Department Time IN / OUT: 9:20-10:10 Total Minutes, Physical Therapy: 50 (EV) 2017 PT Evaluation Code Rationale: ?? Diagnosis & Pertinent Co-Morbidities, personal factors, and present illness affecting Plan ofCare: (see above); Additional personal factors or co- morbidities that impact plan: ?? Total # of Factors: 0 1-2 3+ x ?? Examination of body system impairments, functional limitations and behaviors, and/or participation restrictions. Addressing 1-2 elements Addressing 3 + elements x Addressing 4 + elements ?? Clinical presentation: See assessment above. Stable/Uncomplicated Evolving/Fluctuating Symptoms Unstable/Unpredictable x ?? Clinical decision making of moderate complexity based on pt's functional performance as outlined in this evaluation. Betty Hernandez RN - 10/14/2021 10:30 AM EDT [employer] has been provided a list of Home Health Agencies/DME vendors which serve their preferred geographic area. A letter describing our affiliations was reviewed with them and they were educated about their right to choose where referrals are placed. Provided patient with CMS Star Quality Rating for Home care hand out. Patient requests referral to : [facility] [address] [place] [address] *For RN, OT, PT Also Ortho Care Located @ [place], [place] *For standard FWW Expected date of discharge: 10/14/21. Referral routed to the Civil Service Clerk for matching with agency/vendor and to provide any required information. Betty Hernandez MSN-Ed, RN ACM shell shop supervisor Office of Care Management Pager #[phone] Sabrina Valencia OT - 10/14/2021 10:11 AM EDT Occupational Therapy Evaluation Patient profile: Lorin Cardona is a 66 y.o. female [facility] 10[facility]09[facility] 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 OR 10-13-21: for biopsy of brain tumor. Per spouse her symptoms have improved with Dexamethasone and Keppra. Final plans for treatment of her disease is pending results of yesterday's biopsy. Past Medical History: Diagnosis Date ??? GERD (gastroesophageal reflux disease) ??? Kidney stones ??? Osteopenia ??? Postoperative hypothyroidism ??? Thyroid cancer Past Surgical History: Procedure Laterality Date ??? PRG EMG, LARYNX N/A 01/07/2021 FACIAL NERVE MONITORING, SETUP LARYNGEAL (WRVU 1.57) performed by Fabienne De Dios MD at [facility] MA[facility] OR ??? PRO REMOVAL NODES, NECK, CERV MOD RAD Left 01/07/2021 @CERVICAL LYMPHADENECTOMY (MODIFIED RADICAL NECK DISSECTION) (WRVU 23.95) performed by Fabienne De Dios MD at [facility] MA[facility] OR ??? PRO STEREOTACTIC BRAIN BX, ASPIR, EXC Left 10/13/2021 @STEREOTACTIC BX, ASP, OR EXC.-INTRACRANIAL LESION (WRVU 19.83) performed by Kody Singh MD at [facility] MA[facility] OR ??? PRO THYROIDECTOMY, MALIG, LTD NECK SURG Bilateral 01/07/2021 THYROIDECTOMY, FOR MALIGNANCY, LIMITED NECK DISSECTION (WRVU 22.01) performed by Tony De Dios MD at [facility] MA[facility] OR Social History: Patient lives with spouse. Home Setup: Pt has one level.with two steps to enter and tub shower. DME: none Baseline ADL/Mobility: Pt independent with ADLS and IADLS. Precautions/Special Considerations: skin breakdown risk and fall Subjective: That is weird. 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 Objective: Seen today for OT evaluation and education. Cognitive Status/Behavior: Orientation: Alert and Orientated x3 Memory: Remembering 0/3 random words Judgement/Safety Awareness: Cues for safety Insight: Insight to difficulty with processing Attention: Pt needs cues to sustain attention and mad a couple errors with counting 20 to 0 backwards by 2s Executive functioning: Pt having difficulty placing hands on clock Delay in processing noted Range of motion, strength, coordination: Bilateral UEs are within functional limitations AROM Sensation: Intact Activities of Daily Living: Self-feeding: N/A-Independent with set up Hygiene/grooming: Independent Upper and lower body dressing and bathing: Pt able to dress LB supervision with discussion of use ofshower chair for showering. Pt and her verbalized understanding. Functional Mobility: Supine to sit: Mod I Sit to stand: Supervision Ambulation: supervision with walker, 200 ft with FWW Stand to sit: supervision Balance: steady with use of walker. IADL???s: Assistance available to patient. Pain: Pt c/o of improving head ache Cardiopulmonary: HR: 69 bpm SpO2: 98 % RA BP: 106/49 mmHg in bed BP: 129/74 following activity ?? Education: family and patient have been educated on Role of occupational therapy/rehabilitation, Transfers, ADL, Safety, Precautions/Protocol, Functional Mobility, Activity pacing/Energy conservation, Home Management, Recommendations and Discharge planning and verbalizes understanding. Patient status, treatment, and mobility recommendations discussed with nursing. Assessment: Pt has been seen for occupational therapy evaluation. Lorin Cardona presents with the following performance skill deficits and client factors: decreased activity tolerance, cognitive deficits and compromised mobility status. These performance deficits have led to activity limitations and p articipation restrictions in the following areas of occupation: dressing, bathing, toileting, transfers/mobility, home management and community mobility. However, despite the deficits listed above pt demonstrates the ability to perform ADLS with support from her . Pt with decrease cognition including executive function and STM with need of 24/7 supervision for safety. Anticipate that pt will return home with assistance once medically ready. Do not anticipate further OT needs while hospitalized. Equipment needs at discharge: shower chair, FWW Anticipated Discharge Disposition (OT): home with supervision, home with home health (OT/PT) Plan: Monitor pt until formal d/c. Eval Date: 10/14/2021 Total Minutes, Occupational Therapy: 48 [id number]) 2017 OT Evaluation Code Rationale: ?? Diagnosis & Pertinent Co-Morbidities affecting Plan of Care: see PMHx ?? Occupational Profile & Client History: Brief Expanded Extensive x ?? Assessment of Occupational Performance: 1-3 performance deficits 3-5 performance deficits x 5 + performance deficits ?? Clinical Decision Making: Low Moderate High x Clinical decision making of moderate complexity using standardized patient assessment instrument andmeasurable assessment of functional outcome. Pager: [phone] SABRINA VALENCIA OT 10/14/2021 Occupational Therapy Rehabilitation Department Marilyn Barron MD - 10/14/2021 5:39 AM EDT NEUROSURGERY PROGRESS NOTE PLEASE PAGE [phone] WITH QUESTIONS ID: Lorin Cardona is a 66 y.o. female with a PMHx significant for migraine, papillary thyroid cancer s/p total thyroidectomy (now hypothyroid) who presented to OSH for progressive confusion, AL, nausea and vomiting found to have an intracranial mass for which patient was transferred to [facility] for further management and Neurosurgical evaluation HD# 5 10/13/21: Stereotactic brain lesion biopsy, Dr. Kody Singh MD INTERVAL HX/ROS: -POD1 -NAEON -On Dex 4Q6, Keppra 500 BID, NaCl tabs 1g TID -CTH done showing expected changes -Discussed plan of care with she and her this morning. He states the steroids having significantly helped with his symptoms and he witnessed her standing steadily at the bedside this morning. Does report concern for mobility safety at home and PT has been ordered. Final plans for treatment of her disease is pending results of yesterday's biopsy EXAM: GEN: NAD, woken easily from sleep. Pleasant. Expresses trouble with remembering things. NEURO: AA+Ox2 (not year when asked openly, but does answer appropriately when given options) Speech fluent and appropriate. Naming and repetition intact. PERRL. EOMI. No facial asymmetry Tongue midline MOTOR: RUE: 5/5 LUE: 5/5 RLE: 5/5 LLE: 5/5 No pronator drift LT sensation intact x 4 Biopsy site c/d/i, crani cap with small amount of drainage A/P: Lorin Cardona is a 66 y.o. female with a PMHx significant for migraine, papillary thyroid cancer s/p total thyroidectomy (now hypothyroid) who presented to OSH for progressive confusion, AL, nausea and vomiting found to have an intracranial mass for which patient was transferred to [facility] forfurther management and Neurosurgical evaluation. CTH from 09/24 showing a new intracranial mass centered on the splenium of the corpus callosum with associated ventriculomegaly, cerebral edema, and focal area of hyperdensity possibly representing small hemorrhage inside tumor. 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 S/p stereotactic biopsy 10/13/21.Pathology pending. Disposition pending PT/OT evaluation today. Otherwise, MR for DC. ?? Problem List: Intracranial mass ?? Plan/Recommendations: -q4H neuro checks -BP control, keep SBP 90-160 -DVT ppx with SCDs, SQH OK POD2 -Decadron 4mg q6h, keep at this dose for now -Keppra 500mg BID -Postop CTH done -Diet OK -Hydrocephalus watch -Final plans for tumor pending results of biopsy -PT/OT -DISPOSITION: pending therapy eval; otherwise MR for DC -FULL CODE MEDICATIONS: Scheduled Meds: ??? sodium chloride 1 g Oral TID ??? polyethylene glycoL (MIRALAX) oral powder 17 g Oral Daily ??? levothyroxine 100 mcg Oral QAM ??? ascorbic acid (Vitamin C) 500 mg Oral Every Other Day ??? calcium carbonate 500 mg Oral Daily ??? calcium citrate 1,900 mg Oral Daily ??? docusate sodium 100 mg Oral BID ??? levETIRAcetam 500 mg Oral BID ??? dexAMETHasone 4 mg Oral Q6H CARMEN ??? pantoprazole EC 20 mg Oral Daily Continuous Infusions: PRN Meds: BUpivacaine-EPINEPHrine, gelatin adsorbable, thrombin (bovine), potassium chloride in water OR potassium chloride in water OR potassium chloride in water, acetaminophen Vitals: Temp: [36 ??C (96.8 ??F)-37.1 ??C (98.7 ??F)] Heart Rate: [45-74] Resp: [9-30] BP: (94-139)/(46-80) SpO2: [94 %-100 %] Heart Rate from SpO2: [48 bpm-71 bpm] BMI: Weight: 69.8 kg (153 lb 14.1 oz) (10/10/21 0000) BMI (Calculated): 26.67 BMI Classification: Over Weight I/O: I/O last 3 completed shifts: In: 2401.7 [P.O.:370; I.V.:2031.7] Out: 26 [Urine:1; Blood:25] LABS: Recent Labs 10/14/214 10/13/21 0034 10/12/21 0051 WBC 13.8* 10.8* 13.5* HGB 13.6 13.6 13.4 PLATELET 159 161 156 Recent Labs 10/14/214 10/13/21 0034 10/12/21 0051 NA 137 133* 137 K 4.3 4.1 4.3 CL 104 101 103 CO2 24 24 24 BUN 20* 22* 19* CREATININE 0.77 0.70 0.68* No results for input(s): PT, INR in the last 72 hours. IMAGING: Results for orders placed or performed during the hospital encounter of 10/09/21 MRI Brain wwo Contrast (Generic) (Exam End: 10/09/2021 10:35 PM) Impression 1. 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 Surrounding parenchymal T2 prolongation compatible with infiltrative neoplasm and/or vasogenic edema. 2. Intralesional hemorrhage with intraventricular extension to the left lateral and third ventricles. 3. Obstructive hydrocephalus resulting in temporal horn dilatation. Thank you for letting us participate in the care of this patient. If you are a health care provider and have any questions regarding this report, please contact the number below. For patients who have questions please contact the health critical care cns that requested your imaging first. Head wo Contrast (Generic) (Exam End: 10/13/2021 6:39 PM) Impression Expected postbiopsy changes. Thank you for letting us participate in the care of this patient. If you are a health care provider and have any questions regarding this report, please contact the number below. For patients who have questions please contact the health critical care cns that requested your imaging first. Active Hospital Problems Diagnosis ??? Brain tumor Resolved Hospital Problems No resolved problems to display. Active Non-Hospital Problems Diagnosis ??? Thyroid cancer Marilyn Barron MD 10/14/2021 Amber Fleming RN - 10/13/2021 5:13 PM EDT 1715 Received report from LIZABETH Kendall after break coverage. Pt resting between care. Crani cap presentwith no drainage from incision. Pt denying pain and nausea. VSS. 1745 Report given to LIZABETH Brennan in NSCU. Pt to have head CT on way to room. Vidhya Gonzales PT - 10/13/2021 2:31 PM EDT 10/13/21 1205 Evaluation & Treatment Document Type contact Total Minutes, Physical Therapy 0 Comment, Session Not Performed Referral received, e- chart reviewed, pt transferred from OSH with N/V, confusion, poor memory and balance issues and has an intracranial mass. She is NPO for add-on inOR today for biopsy. Spoke with RN and pt/family who report her balance is better now on dexomethasone and up to BR with nurses. RN reports pt just wants to rest since she's not able to eat/NPO for OR.Plan to follow up tomorrow. Marizol Duvall - 10/13/2021 2:20 PM EDT Marketing Communication Manager Encounter Note Patient Name: Lorin Cardona : [id number] MR#: [id number] Admit Date: 10/09/2021 5:28 PM Hospital Day 4 days Narrative: A response to a phone call for a request for Sacrament of the sick to a patient going for surgery today at 2:30 pm. Assessment: I visited patient in the presence of his family, , sister and [id number]. Patient is awake, alert and oriented. Patient and his family are very friendly and receptive. Patient says she is prepared for the procedure. Patient wants prayer, Sacrament of the sick and blessing. Intervention and Outcome: I offered Pastoral presence, Empathetic listening, Spiritual/Emotional support to patient and her family. I prayed with patient and her family members present. I gave patient Anointing of the sick and blessed all. Patient and her love ones expressed appreciation. Follow-up: Cst in charge of the Unit will follow up as needed and a training and development manager on request. Time in Direct Care: 30 Marizol Duvall 10/13/2021 Maddy Kline OT - 10/13/2021 12:45 PM EDT 10/13/21 1243 Evaluation & Treatment Document Type contact Total Minutes, Occupational Therapy 0 Comment, Session Not Performed Order received and chart reviewed. Pt going off floor for a procedure; plan to assess s/p procedure. Dimple Romero MD - 10/13/2021 4:13 AM EDT NEUROSURGERY PROGRESS NOTE PLEASE PAGE [phone] WITH QUESTIONS ID: Lorin Cardona is a 66 y.o. female with a PMHx significant for migraine, papillary thyroid cancer s/p total thyroidectomy (now hypothyroid) who presented to OSH for progressive confusion, AL, nausea and vomiting found to have an intracranial mass for which patient was transferred to [facility] for further management and Neurosurgical evaluation HD# 4 INTERVAL HX/ROS: No acute events reported overnight. Patient has no complaints this morning. Patient is neurologically improved on dex Consented for L stereotactic bx, NPO for add-on case today EXAM: GEN:NAD asleep on side in bed, comfortable and pleasant. NEURO:AA+Ox3 Speech fluent and appropriate. Naming and repetition intact. PERRL. EOMI. No facial asymmetry Tongue midline MOTOR: RUE:5 LUE:55 RLE: 55 LLE: 06/11 No pronator drift LT sensation intact x 4 A/P: Lorin Cardona is a 66 y.o. female with a PMHx significant for migraine, papillary thyroid cancer s/p total thyroidectomy (now hypothyroid) who presented to OSH for progressive confusion, AL, nausea and vomiting found to have an intracranial mass for which patient was transferred to [facility] forfurther management and Neurosurgical evaluation. CTH from 09/24 showing a new intracranial mass centered on the splenium of the corpus callosum with associated ventriculomegaly, cerebral edema, and focal area of hyperdensity possibly representing small hemorrhage inside tumor. MRI showing likely primary glial neoplasm within splenium. Plan for stereotactic biopsy today as add-on case. ?? Problem List: Intracranial mass ?? Plan/Recommendations: -q4H neuro checks -BP control, keep SBP 90-160 -DVT ppx with SCDs, SQH hold today for OR -Decadron 4mg q6h -Keppra 500mg BID -MRI brain wwo done -NPO with IVF for OR -Hydrocephalus watch -OR today as add on -DISPOSITION: pending course -FULL CODE MEDICATIONS: Scheduled Meds: ??? polyethylene glycoL (MIRALAX) oral powder 17 g Oral Daily ??? levothyroxine 100 mcg Oral QAM ??? ascorbic acid (Vitamin C) 500 mg Oral Every Other Day ??? calcium carbonate 500 mg Oral Daily ??? calcium citrate 1,900 mg Oral Daily ??? docusate sodium 100 mg Oral BID ??? levETIRAcetam 500 mg Oral BID ??? dexAMETHasone 4 mg Oral Q6H CARMEN ??? pantoprazole EC 20 mg Oral Daily Continuous Infusions: ??? sodium chloride 0.9% infusion 100 mL/hr Intravenous Continuous ### PRN Meds: potassium chloride in water OR potassium chloride in water OR potassium chloride in water, acetaminophen Vitals: Temp: [36.6 ??C (97.8 ??F)-37.2 ??C (99 ??F)] Heart Rate: [44-71] Resp: [11-17] BP: (99-138)/(47-77) SpO2: [93 %-100 %] Heart Rate from SpO2: [44 bpm-74 bpm] BMI: Weight: 69.8 kg (153 lb 14.1 oz) (10/10/21 0000) BMI (Calculated): 26.67 BMI Classification: Over Weight I/O: I/O last 3 completed shifts: In: 760 [P.O.:760] Out: 0 LABS: Recent Labs 10/13/21 0034 10/12/21 0051 10/11/21 0449 WBC 10.8* 13.5* 16.1* HGB 13.6 13.4 13.5 PLATELET 161 156 163 Recent Labs 10/13/21 0034 10/12/21 0051 NA 133* 137 K 4.1 4.3 CL 101 103 CO2 24 24 BUN 22* 19* CREATININE 0.70 0.68* No results for input(s): PT, INR in the last 72 hours. IMAGING: Results for orders placed or performed during the hospital encounter of 10/09/21 MRI Brain wwo Contrast (Generic) (Exam End: 10/09/2021 10:35 PM) Impression 1. 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 Surrounding parenchymal T2 prolongation compatible with infiltrative neoplasm and/or vasogenic edema. 2. Intralesional hemorrhage with intraventricular extension to the left lateral and third ventricles. 3. Obstructive hydrocephalus resulting in temporal horn dilatation. Thank you for letting us participate in the care of this patient. If you are a health care provider and have any questions regarding this report, please contact the number below. For patients who have questions please contact the health critical care cns that requested your imaging first. Active Hospital Problems Diagnosis ??? Brain tumor Resolved Hospital Problems No resolved problems to display. Active Non-Hospital Problems Diagnosis ??? Thyroid cancer Dimple Romero MD 10/13/2021 Wesley Martinez - 10/12/2021 5:36 PM EDT Marketing Communication Manager Encounter Note Patient Name: Loirn Cardona : [id number] MR#: [id number] Admit Date: 10/09/2021 5:28 PM Hospital Day 3 days Narrative:Visited to introduce and assess acceptance of Marketing Communication Manager services. Assessment:Patient was awake, alert, oriented and in bed and welcoming to visit. Patient coping positively with stresses of illness/hospitalization at this time. Patient says that she is hoping to get better and her and other family members were there. Pt shared that she is going for surgery and her jesus and family care source of courage and strength. Family and patient asked for sacrament of sick and prayers. Intervention and Outcome:Provided emotional, spiritual support and listening presence. Marketing Communication Manager services accepted. Conversation to build trusting relationship. Provided pastoral presence. Provided spiritual guidance. Provided prayer. Follow-up: yes Time in Direct Care:20 Mins Wesley Martinez 10/12/2021 Dimple Romero MD - 10/12/2021 5:47 AM EDT NEUROSURGERY PROGRESS NOTE PLEASE PAGE [phone] WITH QUESTIONS ID: Lorin Cardona is a 66 y.o. female with a PMHx significant for migraine, papillary thyroid cancer s/p total thyroidectomy (now hypothyroid) who presented to OSH for progressive confusion, AL, nausea and vomiting found to have an intracranial mass for which patient was transferred to [facility] for further management and Neurosurgical evaluation HD# 3 INTERVAL HX/ROS: No acute events reported overnight. Patient has no complaints this morning. Patient is neurologically improved on dex Consented for L stereotactic bx this coming week EXAM: GEN:NAD asleep on side in bed, comfortable and pleasant. NEURO:AA+Ox3 Speech fluent and appropriate. Naming and repetition intact. PERRL. EOMI. No facial asymmetry Tongue midline MOTOR: RUE:5/5 LUE:5/5 RLE: 5/5 LLE: 5/5 No pronator drift LT sensation intact x 4 A/P: Lorin Cardona is a 66 y.o. female with a PMHx significant for migraine, papillary thyroid cancer s/p total thyroidectomy (now hypothyroid) who presented to OSH for progressive confusion, AL, nausea and vomiting found to have an intracranial mass for which patient was transferred to [facility] forfurther management and Neurosurgical evaluation. CTH from 09/24 showing a new intracranial mass centered on the splenium of the corpus callosum with associated ventriculomegaly, cerebral edema, and focal area of hyperdensity possibly representing small hemorrhage inside tumor. MRI showing likely primary glial neoplasm within splenium. Plan for stereotactic biopsy this coming week likely 10/13 add on. ?? Problem List: Intracranial mass ?? Plan/Recommendations: -q4H neuro checks -BP control, keep SBP 90-160 -DVT ppx with SCDs, SQH hold today for OR tomorrow -Decadron 4mg q6h -Keppra 500mg BID -MRI brain wwo done -Ok for diet, NPO with IVF at midnight -Hydrocephalus watch -OR potentially 10/13 for bx -DISPOSITION: pending course -FULL CODE MEDICATIONS: Scheduled Meds: ??? polyethylene glycoL (MIRALAX) oral powder 17 g Oral Daily ??? heparin (porcine) 5,000 Units Subcutaneous 2 times per day ??? levothyroxine 100 mcg Oral QAM ??? ascorbic acid (Vitamin C) 500 mg Oral Every Other Day ??? calcium carbonate 500 mg Oral Daily ??? calcium citrate 1,900 mg Oral Daily ??? docusate sodium 100 mg Oral BID ??? levETIRAcetam 500 mg Oral BID ??? dexAMETHasone 4 mg Oral Q6H CARMEN ??? pantoprazole EC 20 mg Oral Daily Continuous Infusions: ??? [START ON 10/13/2021] sodium chloride 0.9% infusion 100 mL/hr Intravenous Continuous ### PRN Meds: potassium chloride in water OR potassium chloride in water OR potassium chloride in water, acetaminophen Vitals: Temp: [35.9 ??C (96.6 ??F)-37.1 ??C (98.8 ??F)] Heart Rate: [48-65] Resp: [12-19] BP: (89-126)/(56-85) SpO2: [91 %-100 %] Heart Rate from SpO2: [48 bpm-66 bpm] BMI: Weight: 69.8 kg (153 lb 14.1 oz) (10/10/21 0000) BMI (Calculated): 26.67 BMI Classification: Over Weight I/O: I/O last 3 completed shifts: In: 880 [P.O.:880] Out: - LABS: Recent Labs 10/12/21 0051 10/11/21 0449 10/10/21 0146 WBC 13.5* 16.1* 12.4* HGB 13.4 13.5 14.5 PLATELET 156 163 165 Recent Labs 10/12/21 0051 10/10/21 0248 10/10/21 0146 NA 137 138 135 K 4.3 3.9 Not Perf CL 103 102 100 CO2 24 25 23 BUN 19* 14 14 CREATININE 0.68* 0.61* 0.67* Recent Labs 10/09/21 1816 PT 13.5* INR 1.2 IMAGING: Results for orders placed or performed during the hospital encounter of 10/09/21 MRI Brain wwo Contrast (Generic) (Exam End: 10/09/2021 10:35 PM) Impression 1. 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 Surrounding parenchymal T2 prolongation compatible with infiltrative neoplasm and/or vasogenic edema. 2. Intralesional hemorrhage with intraventricular extension to the left lateral and third ventricles. 3. Obstructive hydrocephalus resulting in temporal horn dilatation. Thank you for letting us participate in the care of this patient. If you are a health care provider and have any questions regarding this report, please contact the number below. For patients who have questions please contact the health critical care cns that requested your imaging first. Active Hospital Problems Diagnosis ??? Brain tumor Resolved Hospital Problems No resolved problems to display. Active Non-Hospital Problems Diagnosis ??? Thyroid cancer Dimple Romero MD 10/12/2021 Dimple Romero MD - 10/11/2021 5:48 AM EDT NEUROSURGERY PROGRESS NOTE PLEASE PAGE [phone] WITH QUESTIONS ID: Lorin Cardona is a 66 y.o. female with a PMHx significant for migraine, papillary thyroid cancer s/p total thyroidectomy (now hypothyroid) who presented to OSH for progressive confusion, AL, nausea and vomiting found to have an intracranial mass for which patient was transferred to [facility] for further management and Neurosurgical evaluation HD# 2 INTERVAL HX/ROS: No acute events reported overnight. Patient has no complaints this morning. Patient is neurologically improved on dex Transferred to NSCU yesterday. EXAM: GEN:NAD asleep on side in bed, comfortable and pleasant. NEURO:AA+Ox3 Speech fluent and appropriate. Naming and repetition intact. PERRL. EOMI. No facial asymmetry Tongue midline MOTOR: RUE:5/5 LUE:5/5 RLE: 5/5 LLE: 5/5 B/l L>R pronator drift less obvious this morning LT sensation intact x 4 A/P: Lorin Cardona is a 66 y.o. female with a PMHx significant for migraine, papillary thyroid cancer s/p total thyroidectomy (now hypothyroid) who presented to OSH for progressive confusion, AL, nausea and vomiting found to have an intracranial mass for which patient was transferred to [facility] forfurther management and Neurosurgical evaluation. CTH from 09/24 showing a new intracranial mass centered on the splenium of the corpus callosum with associated ventriculomegaly, cerebral edema, and focal area of hyperdensity possibly representing small hemorrhage inside tumor. MRI showing likely primary glial neoplasm within splenium. Plan for stereotactic biopsy this coming week. ?? Problem List: Intracranial mass ?? Plan/Recommendations: -Close neurological observation, Q2H neuro checks -BP control, keep SBP 90-160 -DVT ppx with SCDs, SQH -Decadron 4mg q6h -Keppra 500mg BID -MRI brain wwo done -Ok for diet -Hydrocephalus watch -DISPOSITION: pending course -FULL CODE MEDICATIONS: Scheduled Meds: ??? heparin (porcine) 5,000 Units Subcutaneous 2 times per day ??? levothyroxine 100 mcg Oral QAM ??? ascorbic acid (Vitamin C) 500 mg Oral Every Other Day ??? calcium carbonate 500 mg Oral Daily ??? calcium citrate 1,900 mg Oral Daily ??? docusate sodium 100 mg Oral BID ??? levETIRAcetam 500 mg Oral BID ??? dexAMETHasone 4 mg Oral Q6H CARMEN ??? pantoprazole EC 20 mg Oral Daily Continuous Infusions: PRN Meds: potassium chloride in water OR potassium chloride in water OR potassium chloride in water, acetaminophen Vitals: Temp: [35.9 ??C (96.6 ??F)-37.1 ??C (98.7 ??F)] Heart Rate: [46-70] Resp: [11-19] BP: (89-115)/(50-72) SpO2: [93 %-99 %] Heart Rate from SpO2: [47 bpm-69 bpm] BMI: Weight: 69.8 kg (153 lb 14.1 oz) (10/10/21 0000) BMI (Calculated): 26.67 BMI Classification: Over Weight I/O: I/O last 3 completed shifts: In: 482 [P.O.:290; I.V.:192] Out: 1350 [Urine:1350] LABS: Recent Labs 10/11/21 0449 10/10/21 0146 10/09/21 1816 WBC 16.1* 12.4* 7.6 HGB 13.5 14.5 13.7 PLATELET 163 165 164 Recent Labs 10/10/21 0248 10/10/21 0146 10/09/21 1816 NA 138 135 135 K 3.9 Not Perf 4.0 CL 102 100 100 CO2 25 23 24 BUN 14 14 -- CREATININE 0.61* 0.67* -- Recent Labs 10/09/21 1816 PT 13.5* INR 1.2 IMAGING: Results for orders placed or performed during the hospital encounter of 10/09/21 MRI Brain wwo Contrast (Generic) (Exam End: 10/09/2021 10:35 PM) Impression 1. 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 Surrounding parenchymal T2 prolongation compatible with infiltrative neoplasm and/or vasogenic edema. 2. Intralesional hemorrhage with intraventricular extension to the left lateral and third ventricles. 3. Obstructive hydrocephalus resulting in temporal horn dilatation. Thank you for letting us participate in the care of this patient. If you are a health care provider and have any questions regarding this report, please contact the number below. For patients who have questions please contact the health critical care cns that requested your imaging first. Active Hospital Problems Diagnosis ??? Brain tumor Resolved Hospital Problems No resolved problems to display. Active Non-Hospital Problems Diagnosis ??? Thyroid cancer Dimple Romero MD 10/11/2021 Maddy Little RN - 10/11/2021 5:02 AM EDT No events over night. VSS. Confuses easily but is easily redirected, can be fully oriented. Unsteady gait. Denies pain and needs. No visible distress noted. Call light in reach. Isaías Valladares MD - 10/10/2021 8:21 AM EDT NEUROSURGERY PROGRESS NOTE PLEASE PAGE [phone] WITH QUESTIONS ID: Lorin Cardona is a 66 y.o. female with a PMHx significant for migraine, papillary thyroid cancer s/p total thyroidectomy (now hypothyroid) who presented to OSH for progressive confusion, AL, nausea and vomiting found to have an intracranial mass for which patient was transferred to [facility] for further management and Neurosurgical evaluation HD# 1 INTERVAL HX/ROS: No acute events reported overnight. Initiated dexamethasone Patient has no complaints this morning. Patient is neurologically improved. MRI brain completed showing butterfly mass in splenium of corpus collosum. Final read pending. ROS: Patient denies fever, chills, headache, nausea, vomiting, and bowel or bladder symptoms. EXAM: GEN:NAD NEURO:AA+Ox3 Speech fluent and appropriate. Naming and repetition intact. PERRL. EOMI. Visual villegas full to confrontation. No facial asymmetry Tongue midline MOTOR: RUE:5/5 LUE:5/5 RLE: 5/5 LLE: 5/5 B/l L>R pronator drift LT sensation intact x 4 Groin site without hematoma, distal pulses 2+ Dressings dry and intact A/P: Lorin Cardona is a 66 y.o. female with a PMHx significant for migraine, papillary thyroid cancer s/p total thyroidectomy (now hypothyroid) who presented to OSH for progressive confusion, AL, nausea and vomiting found to have an intracranial mass for which patient was transferred to [facility] forfurther management and Neurosurgical evaluation. CTH from 09/24 showing a new intracranial mass centered on the splenium of the corpus callosum with associated ventriculomegaly, cerebral edema, and focal area of hyperdensity possibly representing small hemorrhage inside tumor. Findings stable on repeat CTH today and possibly represent primary glial neoplasm which displays aggressive features. Will need to obtain MRI brain wwo for further evaluation.In the interim, patient to remain in ICU for close monitoring for hydrocephalus. She currently is lethargic but arousable and does not need ICP monitoring or CSF diversion at the present moment, but family is amenable to this and any surgical intervention offered as appropriate. Also confirmed she is full code with her Tang. Will discuss possible surgical interventions based on MRI findings. ?? Problem List: Intracranial mass ?? Plan/Recommendations: -Close neurological observation, Q2H neuro checks -BP control, keep SBP 90-160 -DVT ppx with SCDs, hold antiplatelets/anticoagulants -Decadron 4mg q6h -Keppra 500mg BID -MRI brain wwo done -Ok for diet if safe from ICU standpoint -Hydrocephalus watch -DISPOSITION: Transfer to NSCU -FULL CODE MEDICATIONS: Scheduled Meds: ??? ascorbic acid (Vitamin C) 500 mg Oral Every Other Day ??? calcium carbonate 500 mg Oral Daily ??? levothyroxine 100 mcg Oral Daily ??? calcium citrate 1,900 mg Oral Daily ??? docusate sodium 100 mg Oral BID ??? levETIRAcetam 500 mg Oral BID ??? dexAMETHasone 4 mg Oral Q6H CARMEN ??? pantoprazole EC 20 mg Oral Daily Continuous Infusions: PRN Meds: potassium chloride in water OR potassium chloride in water OR potassium chloride in water, acetaminophen Vitals: Temp: [36.7 ??C (98.1 ??F)-37 ??C (98.6 ??F)] Heart Rate: [52-81] Resp: [-] BP: (107-140)/(55-105) SpO2: [91 %-98 %] Heart Rate from SpO2: [53 bpm-76 bpm] BMI: Weight: 69.8 kg (153 lb 14.1 oz) (10/10/21 0000) BMI (Calculated): 26.67 BMI Classification: Over Weight I/O: I/O last 3 completed shifts: In: 242 [P.O.:50; I.V.:192] Out: 1350 [Urine:1350] LABS: Recent Labs 10/10/21 0146 10/09/21 1816 WBC 12.4* 7.6 HGB 14.5 13.7 PLATELET 165 164 Recent Labs 10/10/21 0248 10/10/21 0146 10/09/21 1816 NA 138 135 135 K 3.9 Not Perf 4.0 CL 102 100 100 CO2 25 23 24 BUN 14 14 -- CREATININE 0.61* 0.67* -- Recent Labs 10/09/21 1816 PT 13.5* INR 1.2 IMAGING: No results found for this visit on 10/09/21. Active Hospital Problems Diagnosis ??? Brain tumor Resolved Hospital Problems No resolved problems to display. Active Non-Hospital Problems Diagnosis ??? Thyroid cancer Isaías Valladares MD 10/10/2021 Letty Rea RN - 10/09/2021 7:18 PM EDTStessiey: Arrival 1725: Arrived to hospital from [facility] via helicopter. Brought to room 59 via stretcher with EMS team. Paperwork given to NS team. Pt cleaned with CHG wipes, placed on monitor. Vitals, weight and glucose level obtained. Neuro checks completed. Weight obtained from bed scale with bed zero'd prior. Pt alert, able to state her name along with spouse and son's name. Knew the year, not the month or where she is. Moves all extremities, follows commands well. Slow to respond to some questions. Pt denied pain. Pt has full sensation present; however, unable to correctly state Left and Right when asked which side is being touched. Pt bladder scanned, 134ml present. States she does not need to void. Labs obtained. Report given to Amy and full neuro assessment completed together. Family present, at bedside at 1910. documented in this encounter H&P Notes Kody Singh MD - 10/09/2021 7:00 PM EDT [facility] NEUROSURGERY H&P Date: 10/09/2021 ID: Lorin Cardona, 66 y.o. female : 1955 Admission Date: 10/09/2021 PCP: INEZ Lindsey CC/Reason for consult: intracranial mass History of Present Illness: Lorin Cardona is a 66 y.o. female, left handed, not on APAC with a PMHx significant for migraine, papillary thyroid cancer s/p total thyroidectomy (now hypothyroid) who presented to OSH for progressive confusion, AL, nausea and vomiting found to have an intracranial mass for which patient was transferred to [facility] for further management and Neurosurgical evaluation. History obtained from patient's , Tang, as she is unable to give much information due to hermental status. He tells me that she has been unlike herself for about 4-5 months, beginning with simple forgetfulness and repeating herself. Since then over the past month, has been increasingly disoriented even to how to get to the bathroom in her own house. She was seen by PCP 09/24 with CTH showing a new intracranial mass centered on the splenium of the corpus callosum with associated ventriculomegaly, cerebral edema, and focal area of hyperdensity possibly representing small hemorrhage. NSGY called via tumor hotline at that time with recommendation for urgent outpatient MRI and clinic follow up on 10/13, however patient developed nausea/vomiting, headache and more severe confusion last night prompting OSH ED presentation. Tang denies any seizure like activity in recent months/days. Repeat CTH performed, labs notable for Na 133, received Keppra 1g and Decadron 10mg IV. She was subsequently trans ferred to [facility] for further care. Today, Lorin is arousable in ICU bed to repeated voice and light stim. She tells me she is tired butpresently denies headache, nausea, vomiting, or numbness. Exam as below. Past Medical History: Past Medical History: Diagnosis Date ??? GERD (gastroesophageal reflux disease) ??? Kidney stones ??? Osteopenia ??? Postoperative hypothyroidism ??? Thyroid cancer Patient Active Problem List Diagnosis Code ??? Thyroid cancer C73 ??? Brain tumor D49.6 Past Surgical History: Past Surgical History: Procedure Laterality Date ??? PRG EMG, LARYNX N/A 01/07/2021 FACIAL NERVE MONITORING, SETUP LARYNGEAL (WRVU 1.57) performed by Fabienne De Dios MD at [facility] MAIN OR ??? PRO REMOVAL NODES, NECK, CERV MOD RAD Left 01/07/2021 @CERVICAL LYMPHADENECTOMY (MODIFIED RADICAL NECK DISSECTION) (WRVU 23.95) performed by Fabienne De Dios MD at [facility] MA[facility] OR ??? PRO THYROIDECTOMY, MALIG, LTD NECK SURG Bilateral 01/07/2021 THYROIDECTOMY, FOR MALIGNANCY, LIMITED NECK DISSECTION (WRVU 22.01) performed by Tony De Dios MD at [facility] MA[facility] OR Medications: No current facility-administered medications on file prior to encounter. Current Outpatient Medications on File Prior to Encounter Medication Sig Dispense Refill ??? levothyroxine (Synthroid) 100 mcg Tablet Take 1 tablet by mouth daily. 90 tablet 3 ??? calcium citrate (Calcitrate) 200 mg (950 mg) Tablet Take 1 tablet by mouth daily. Taking 400mg daily ??? acetaminophen (Tylenol) 500 mg Tablet Take 2 tablets by mouth as needed for Pain. ??? Ibuprofen 200 mg Capsule Take 1 capsule by mouth as needed. ??? calcium carbonate (Tums) 200 mg calcium (500 mg) Tablet, Chewable Take 2 tablets by mouth 3 times daily (after meals). (Patient taking differently: Take 500 mg by mouth daily.) ??? diphenhydramine HCl (BENADRYL ALLERGY ORAL) Take by mouth. ??? docosahexaenoic acid/epa (FISH OIL ORAL) Take by mouth daily. Taking 1000mg every other day ??? multivitamin Capsule Take 1 capsule by mouth every other day. ??? omeprazole (PriLOSEC) 20 mg Capsule, Delayed Release(E.C.) Take 20 mg by mouth as needed. ??? ascorbic acid, Vitamin C, (Vitamin C) 500 mg Tablet Take 500 mg by mouth every other day. Scheduled Meds: ??? ascorbic acid (Vitamin C) 500 mg Oral Every Other Day ??? calcium carbonate 500 mg Oral Daily ??? levothyroxine 100 mcg Oral Daily ??? calcium citrate 1,900 mg Oral Daily ??? docusate sodium 100 mg Oral BID ??? levETIRAcetam 500 mg Oral BID ??? dexAMETHasone 4 mg Oral Q6H CARMEN ??? pantoprazole EC 20 mg Oral Daily Continuous Infusions: PRN Meds: acetaminophen Allergies: No Known Allergies Social History: Social History Socioeconomic History ??? Marital status: Spouse name: Not on file ??? Number of children: Not on file ??? Years of education: Not on file ??? Highest education level: Not on file Occupational History ??? Not on file Tobacco Use ??? Smoking status: Never Smoker ??? Smokeless tobacco: Never Used Vaping Use ??? Vaping Use: Never used Substance and Sexual Activity ??? Alcohol use: Not Currently Comment: rarely ??? Drug use: Never ??? Sexual activity: Not on file Other Topics Concern ??? Not on file Social History Narrative ??? Not on file Social Determinants of Health Financial Resource Strain: Low Risk ??? Difficulty of Paying Living Expenses: Not hard at all Food Insecurity: No Food Insecurity ??? Worried About Running Out of Food in the Last Year: Never true ??? Ran Out of Food in the Last Year: Never true Transportation Needs: No Transportation Needs ??? Lack of Transportation (Medical): No ??? Lack of Transportation (Non-Medical): No Physical Activity: Not on file Housing Stability: Low Risk ??? Unable to Pay for Housing in the Last Year: No ??? Number of Places Lived in the Last Year: 1 ??? Unstable Housing in the Last Year: No Family History: No family history on file. Review of Systems: Please see HPI for pertinent details. 12 point ROS is otherwise negative. Vital Signs: Visit Vitals BP 111/67 Pulse 61 Temp 36.7 ??C (98.1 ??F) (Axillary) Resp 15 Ht 161.3 cm (5' 3.5) Wt 69.4 kg (153 lb) SpO2 93% BMI 26.67 kg/m?? Physical Exam: General: NAD. Asleep in ICU bed on arrival, awakens to light stim. HEENT: Atraumatic, normocephalic. Neck supple, trachea midline. Cardiovascular: Regular rate and rhythm. Respiratory: Normal inspiratory effort on RA. Extremities: WWP, peripheral pulses are 2+ and equal bilaterally in upper and lower extremities. Neurological: Mental Status/Cognitive: GCS 13 (Motor 6 - Follows commands; Verbal 4 - Confused; Eyes 3 - Eyes open to voice) Awakens to voice, oriented to self only. Speech: Names 2/3 objects correctly. Repetition intact. Answers simple questions. Cranial Nerves: PERRL CN II: Cannot reliably count fingers CN III, IV, : EOMI. CN V: Sensation intact in V1, 2 and 3 distributions. CN VII: No facial asymmetry/droop. CN VIII: Intact hearing bilaterally to voice. CN IX, X: Palate and uvula rise in the midline. CN XI: Trapezius strength 5/5 bilaterally. CN XII: Tongue protrudes in the midline direction. Tone: Normal/appropriate, symmetric. Motor: No upper extremity drift. Follows commands in BLUE and BLLE with symmetric strength. Slight BL deltoid and KE weakness 4+ likely participation related. Reflexes: No hyperreflexia. Giang's: negative Clonus: none Gait: Not assessed Sensation: Intact in C5-T1 dermatomes in bilateral upper extremities. Intact in L2-S1 dermatomes in bilateral lower extremities. L sided extinction to light touch, only calls out for right side. Cerebellar: No dysmetria or dysdiadochokinesia. No intention tremor. Labs: Recent Labs 10/09/211815 WBC 7.6 HGB 13.7 PLATELET 164 Recent Labs 10/09/211815 NA 135 K 4.0 CL 100 CO2 24 Recent Labs 10/09/21 1816 PT 13.5* INR 1.2 No results for input(s): AST, ALT, BILITOT, ALKPHOS, ALB, PROT, LIPASE, AMYLASE in the last 72 hours. Imaging: See below. Imaging independently reviewed. Assessment: Lorin Cardona is a 66 y.o. female not on APAC with a PMHx significant for migraine, papillary thyroid cancer s/p total thyroidectomy (now hypothyroid) who presented to OSH for progressive confusion, AL, nausea and vomiting found to have an intracranial mass for which patient was transferred to [facility] for further management and Neurosurgical evaluation. CTH from 09/24 showing a new intracranial mass centered on the splenium of the corpus callosum with associated ventriculomegaly, cerebral edema, and focal area of hyperdensity possibly representing small hemorrhage inside tumor. Findings stable on repeat CTH today and possibly represent primary glial neoplasm which displays aggressive features. Will need to obtain MRI brain wwo for further evaluation.In the interim, patient to remain in ICU for close monitoring for hydrocephalus. She currently is lethargic but arousable and does not need ICP monitoring or CSF diversion at the present moment, but family is amenable to this and any surgical intervention offered as appropriate. Also confirmed she is full code with her Tang. Will discuss possible surgical interventions based on MRI findings. Problem List: Intracranial mass Plan/Recommendations: -Close neurological observation, Q1H neuro checks -BP control, keep SBP 90-160 -DVT ppx with SCDs, hold antiplatelets/anticoagulants -Decadron 4mg q6h -Keppra 500mg BID -MRI brain wwo -Ok for diet if safe from ICU standpoint -Hydrocephalus watch -Rest per NCCU Today's plan of care will be discussed with attending neurosurgeon, Kody Singh MD. Dimple Romero MD 10/09/2021 7:[address] [facility] Neurosurgery Inpatient Pager: [phone] Personal Pager: [phone] Active Hospital Problems Diagnosis ??? Brain tumor Resolved Hospital Problems No resolved problems to display. Active Non-Hospital Problems Diagnosis ??? Thyroid cancer I met with Lorin and her family. I agree with Dr. Romero's assessment and plan as above. Briefly, Lorin is a 66-year-old female who has experienced a fall off and cognitive ability. She underwent a CTscan and we were contacted. We had recommended an MRI in an urgent fashion and were actually planning to meet with the patient to discuss the results, etc. The patient then had a worsening of symptoms and was actually transferred here to [facility] for further evaluation. She did undergo an MRI scan which reveals, as expected, a mass along the splenium of the corpus callosum with a multifocal expansion into the left posterior parietal region. This has imaging characteristics of a high-grade glioma. I explained to the family that a direct surgical resection of this area typically would cause for some deterioration in cognitive ability. Therefore I recommended that we obtain a stereotactic biopsy to verify the diagnosis and then we can discuss further steps. They are in agreement with the plan andwe are proceeding to a stereotactic biopsy of the more superficial parietal lesion Gerard Vegas APRN - 10/09/2021 1:54 PM EDT Images from the original note were not included. NEUROCRITICAL CARE HISTORY & PHYSICAL Date of Admission: 10/09/2021 5:28 PM HPI: Lorin Cardona is a 66 y.o. 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 At that time, pt was recommended to have urgent MRI imaging. Due to limited symptoms, decadron was deferred. Pt represented to OSH with worsening headaches prompting repeat CTH imagine which revealed known brain tumor with increased edema, ventricular dilation, and hyperdensity in the left aspect of the mass concerning for hemorrhage. At tat time, neurologic examination notable for disorientation otherwise nonfocal. [facility] contacted for neurosurgical consultation. Pt given 1 g of Keppra and 10mg of decadron. Due to concern for development of hydrocephalus, pt transferred to NCCU for further care. On arrival to ICU, patient's vitals were stable. She was responding appropriately to questioning with her name, year. She thought she was at [facility]. 400mL were straight cathed from bladder before arrival. Bladder scan revealed residual 130mL. She denied urge to urinate. Labs sent and type and screen were ordered. ROS: Gen: denies fever, chills, fatigue, malaise, weight loss Eyes: denies blurring, diplopia, vision loss, photophobia CV: denies chest pain, palpitations, lightheadedness, syncope, dyspnea on exertion Resp: denies SOB, cough GI: denies nausea, vomiting, diarrhea, constipation, abdominal pain Neuro: as per HPI; denies weakness, AL, paresthesias, seizures, tremors, vertigo, balance problems Past Medical History: Diagnosis Date ??? GERD (gastroesophageal reflux disease) ??? Kidney stones ??? Osteopenia ??? Postoperative hypothyroidism ??? Thyroid cancer Past Surgical History: Procedure Laterality Date ??? PRG EMG, LARYNX N/A 01/07/2021 FACIAL NERVE MONITORING, SETUP LARYNGEAL (WRVU 1.57) performed by Fabienne De Dios MD at [facility] MA[facility] OR ??? PRO REMOVAL NODES, NECK, CERV MOD RAD Left 01/07/2021 @CERVICAL LYMPHADENECTOMY (MODIFIED RADICAL NECK DISSECTION) (WRVU 23.95) performed by Fabienne De Dios MD at [facility] MA[facility] OR ??? PRO THYROIDECTOMY, MALIG, LTD NECK SURG Bilateral 01/07/2021 THYROIDECTOMY, FOR MALIGNANCY, LIMITED NECK DISSECTION (WRVU 22.01) performed by Tony De Dios MD at [facility] MA[facility] OR Social History Tobacco Use ??? Smoking status: Never Smoker ??? Smokeless tobacco: Never Used Substance Use Topics ??? Alcohol use: Not Currently Comment: rarely Medications Prior to Admission Medication Sig Dispense Refill Last Dose ??? levothyroxine (Synthroid) 100 mcg Tablet Take 1 tablet by mouth daily. 90 tablet 3 Unknown at Unknown time ??? calcium citrate (Calcitrate) 200 mg (950 mg) Tablet Take 1 tablet by mouth daily. Taking 400mg daily Unknown at Unknown time ??? acetaminophen (Tylenol) 500 mg Tablet Take 2 tablets by mouth as needed for Pain. Unknown at Unknown time ??? Ibuprofen 200 mg Capsule Take 1 capsule by mouth as needed. Unknown at Unknown time ??? calcium carbonate (Tums) 200 mg calcium (500 mg) Tablet, Chewable Take 2 tablets by mouth 3 times daily (after meals). (Patient taking differently: Take 500 mg by mouth daily.) Unknown at Unknown time ??? diphenhydramine HCl (BENADRYL ALLERGY ORAL) Take by mouth. Unknown at Unknown time ??? docosahexaenoic acid/epa (FISH OIL ORAL) Take by mouth daily. Taking 1000mg every other day Unknown at Unknown time ??? multivitamin Capsule Take 1 capsule by mouth every other day. Unknown at Unknown time ??? omeprazole (PriLOSEC) 20 mg Capsule, Delayed Release(E.C.) Take 20 mg by mouth as needed. Unknown at Unknown time ??? ascorbic acid, Vitamin C, (Vitamin C) 500 mg Tablet Take 500 mg by mouth every other day. Unknown at Unknown time Vital Sign Ranges: Last value Range last 24 hrs Temperature Temp: -- Heart Rate Heart Rate: -- Blood Pressure BP: -- Respiratory Rate Resp: -- SpO2 SpO2: -- Art BP BP (Arterial Line): -- Lines/Drains/Airways: Drain/Device Site 01/07/21 1204 Left neck collapsible closed device (Active) Incision 01/07/21 0824 neck (Active) Labs: No results found for this or any previous visit (from the past 24 hour(s)). Imaging: [facility] wo Contrast (10/09/2021) EKG: Physical Exam: General- patient generally slow to respond but answers questioning appropriately, AOx2 and says she is at [facility] Cardio- normal S1 and S2 without murmurs rubs or gallops Pulm- clear to auscultation, no cough or wheezes GI- no abdominal tenderness, distention or bulges MSK- lifts both lower extremities against gravity for 5 seconds, lifts uppers against gravity for 10seconds Neuro- patient able to look in both directions, pupils equal and reactive, possible extinction of right upper and lower extremities and left face, no facial droop, no dysmetria, normal heel to cook, nopronator drift ASSESSMENT & PLAN: Lorin Cardona is a 66 y.o. 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 Patient's symptoms likely due to known brain tumor. Our concern is spreading edema and possible hemorrhage and increasing ICP causing symptoms. We will get MRI w+wo to further characterize brain findings and communicate with neurosurgery for possible need for cranial decompression/resection. # Neuro- > Extensive butterfly glioma with surrounding vasogenic edema - q1h neuro checks, VS - MRI brain w+wo to further characterize mass - HOB > 30 deg - decadron 4mg q6 - keppra 500mg BID for seizure ppx - tylenol 650mg q6hrs PRN # CV - - SBP goal < 160 # Pulm - - goal O2 sats > 92% # GI - - NPO until bedside swallow screen - bowel reg - GI ppx with protonix while on decadron # FEN/ - - NS while NPO - daily BMP, Mg, PO4 >hyponatremia -recheck lytes # Heme - - daily CBC - hold chemoppx due to concern for hemorrhage / potential OR planning will discuss timing with NSGY # Endo - > hx papillary thyroid carcinoma s/p thyroidectomy > hx hypothyroidism - goal glucose 120-180 - synthroid 100mcg # ID - - for temp > 38.4 --> UA, CXR, blood cx, sputum cx - tylenol PRN # ICU Analgesia Wean Sedation None HOB > 30 degrees SBT Not intubated VAP Bundle Not Intubated Ulcer Prophylaxis Not indicated Bowel Regimen Adequate Feeding NPO DVT Prophylaxis SCDs Glucose 120-180 Controlled without insulin requirement De-escalation of Antibiotics Not applicable Indwelling Tubes + Lines Peripheral IV Skin Daily Nursing Skin Breakdown Risk Assessment Rehab Services Consulted PT/OT: Not indicated SYSTEM DEVELOPMENT MANAGER: Not indicated Family Meeting in Last 5 Days Not applicable Code Status - Attempt Cardiopulmonary Resuscitation - Inpatient Dispo - ICU Diet - NPO w/meds documented in this encounter Miscellaneous Notes Care Management Discharge - Betty Hernandez RN - 10/14/2021 11:07 AM EDT CARE MANAGEMENT FINAL DISCHARGE NOTE Chart reviewed, care reviewed with primary team and at interdisciplinary rounds. Patient is medically ready for discharge to home with family support and [place] for RN, OT, Pt and a walker from [facility]. Needs for Transition of Care: Plan for discharge is: Home w/ Services Outpatient Agency/Support Group Needs: Homecare agency *TBD Agency Referrals & Follow-up Care: Contact information for follow-up [facility], [place] [address] [facility] [address] [facility], [facility] [address] [facility] [address] Transportation: family or friend will provide-via private vehicle. Functional status prior to admission: Independent Home Environment: Others in the home: spouse. Current Living Arrangements: home/apartment/condo. Accessibility Concerns:no concerns noted at this time.. Current Functional Ability: Assistive Person and Equipment DME used at home: none DME Needed at Discharge: Walker Ambulatory Support Needs: Walker - Standard Provider: [facility] Delivery: In Process Patient is insured through: Primary Insurance: MEDICARE Payor: MEDICARE / Plan: MEDICARE PART A & B / Product Type: *No Product type* / Secondary Insurance: [employer] Prescription Coverage: Yes This plan was formulated with input from patient, pt and Ginger (please identify family/friendinvolved if applicable) and team. All are in agreement with plan. Betty ARANGO, RN Pager #[phone] Brief Op Note - Isaías Valladares MD - 10/13/2021 4:26 PM EDT Brief Operative Note Patient Name: Lorin Cardona : [id number] MR#: [id number] Case Date: 10/13/2021 Surgeon: Surgeon(s) and Role: * Kody Singh MD - Primary * Isaías Valladares MD - Resident Preoperative diagnosis: Brain tumor Postoperative diagnosis: Brain tumor Procedure(s) (LRB): @STEREOTACTIC BX, ASP, OR EXC.-INTRACRANIAL LESION (WRVU 19.83) (Left) Anesthesia: General Local Findings: adequate left stereotactic biopsy. Primary closure with monocryl. Complications: none Estimated Blood Loss: 5 ml Specimens removed during surgery: Order Name Source Comment Collection Info Order Time SPECIMEN TO PATHOLOGY Brain tumor stereotactic biopsy biopsy 10/13/2021 4:12 PM Time specimen removed from patient: 4:11 PM Number of tissue samples (in container) Multiple Fluids: Intraprocedure Crystalloid Total None PRBCs: none (See Anesthesia Record/Report for Other Blood Products) Urine Output: (no urine output recorded) Drains: none Disposition: awakened from anesthesia, extubated and taken to the recovery room in a stable condition, having suffered no apparent untoward event. Condition: doing well without problems (Please see the Surgical Encounter Summary for any Implant and Specimen details pertinent to this patient.) Surgical Infection Prevention Bundle Used? N/A Op Note - Isaías Valladares MD - 10/13/2021 3:51 PM EDT [facility] Operative Note Patient Name: Lorin Cardona : [id number] MR#: [id number] Case Date: 10/13/2021 Surgeon: Surgeon(s) and Role: * Kody Singh MD - Primary * Isaías Valladares MD - Resident Preoperative diagnosis: Brain tumor Postoperative diagnosis: Brain tumor Procedure(s) (LRB): @STEREOTACTIC BX, ASP, OR EXC.-INTRACRANIAL LESION (WRVU 19.83) (Left) Findings: Adequate left stereotactic biopsy. Primary closure with Monocryl. Anesthesia: General Estimated Blood Loss: 5mL Specimens removed during surgery: Order Name Source Comment Collection Info Order Time SPECIMEN TO PATHOLOGY Brain tumor stereotactic biopsy biopsy 10/13/2021 4:12 PM Time specimen removed from patient: 4:11 PM Number of tissue samples (in container) Multiple Drains: none Surgical Closure: Primary Closure - skin incision is completely closed without any wires, tony, drains or other devices Disposition: awakened from anesthesia, extubated and taken to the recovery room in a stable condition, having suffered no apparent untoward event. Condition: doing well without problems (Please see the Surgical Encounter Summary for any Implant and Specimen details pertinent to this patient.) HPI/Surgical Indications: This is a 66-year-old left-handed female who presented with progressive confusion, headache, nausea, and vomiting who was found to have an intracranial bleed of the corpus callosum region. Consent for stereotactic biopsy was obtained. Procedure Description: In the operating room the patient was positioned supine on the operating table. Endotracheal intubation was performed and general anesthesia was administered. Antibiotics were administered for perioperative prophylaxis. The patient was placed in [place] three-point fixation. The patient was registered with the Quisk navigation and an incision was marked over the planned biopsy trajectory. The patient was prepped and draped in the standard sterile fashion. A #10 blade was used to make an incision. The bipolar electrocautery was used for hemostasis. The soft tissues were dissected bluntly. A bur hole was fashioned with a high-speed drill and an M8 bit. The dura was coagulated with bipolar cautery and opened in a cruciate fashion with a #11 blade. The pato was opened with a #11 blade and cauterized with bipolar electrocautery. The biopsy anchor was placed with 3 anchor screws in the outer table of the calvarium. Navigating channel was placed in the anchor and confirmed with the Vertek navigating probe. The trajectory was locked and the biopsy needle was set to the appropriate depth. Biopsy needle was passed through the introducer with ease to the appropriate depth. 4 biopsies were taken for permanent pathology. The biopsy needle was retracted approximately 1 cm and 3 additional biopsies were taken for permanent pathology. The biopsy needle was removed and the navigating channel and anchor were also removed. Hemostasis was obtained by bipolar electrocautery and the surgical site was copiously irrigated. Attention was turned to closure. The galeal layer was closed with 3-0 Vicryl sutures in inverted interrupted fashion. The skin was closed with 4-0 Monocryl in a running fashion. Skin was washed with wet and dry Ray-Joss sponges and a dressing applied. This marked the end of the procedure. Patient was removed from pins and awakened from anesthesia having suffered no untoward events. Dr. Singh was present for the critical portion of this procedure. Surgical Infection Prevention Bundle Used? N/A Associated attestation - Kody Singh MD - 10/15/2021 10:49 AM EDT Attestation: Case Date: 10/13/2021 I was present and I participated during the entire procedure (does not need to include opening and closing). KODY SINGH MD 10/15/2021 Initial Assessments - Betty Hernandez RN - 10/13/2021 2:44 PM EDT Office of Care Management Initial Assessment Medical record reviewed. Plan of care and patient status discussed with direct care Registered Nurseand/or Care Team in multidisciplinary rounds. Reason for Hospitalization: Brain tumor Last COVID test: Lab Results Component Value Date [id number] Not Detected 01/07/2021 Present on Admission: ??? Brain tumor Hospitalizations Within the Past 30 Days: no previous admission in last 30 days Patient receiving hospital care under Inpatient status. Admission order reviewed. Primary Insurance on file: MEDICARE Secondary Insurance on file:@ Primary care provider on file: INEZ Lindsey [phone] Pharmacy: [id number] - [place], [place] - [address] [facility] [address] [facility] [address] [facility] ([place]) - [address] [address] Health/Prescription Coverage: Primary Insurance: MEDICARE Payor: MEDICARE / Plan: MEDICARE PART A & B / Product Type: *No Product type* / Secondary Insurance: [facility] Secondary Insurance? (Only Medicare A&B): Yes ; Prescription Coverage: Yes Preferred Pharmacy: [id number] - [place], [place] - [address] [facility] [address] [facility] [address] [facility] ([place]) - [address] [address] Advance Care Planning: Attempt Cardiopulmonary Resuscitation - Inpatient <no information> -Advanced Directive: No, need to discuss Current Functional Ability: Assistive Person, Assistive Equipment and Assistive Person Functional Status Prior to Admission: Independent Home Environment: Others in the home: spouse. Current Living Arrangements: home/apartment/condo. Accessibility Concerns:no concerns noted at this time.. Current DME: none [address] [facility] [address] Social & Family Supports: All names listed below confirmed with patient as current and correct Extended Emergency Contact Information Primary Emergency Contact: Tang Cardona Mobile Relation: Spouse Current Care Provided by: self Transportation: no concerns Transportation Anticipated: family or friend will provide Assessment: Patient with no apparent RNCM/SW needs at this time. No housing, transportation, insurance, resources concerns identified at this time. Supports in place to achieve a safe post-hospital transition. No identified barriers to accessing necessary care and/or follow-up after discharge. Plan: TBD pending hospital course and rehab evals. Pt/family are agreeable to rehab vs VNa if team feels it is needed. Registered Nurse Director Field Services / Rn Telephone Triage will continue to follow patient???s progress and remain available if situation changes for coordination of care, psychosocial support and/or discharge planning. Office of Care Management Betty ARANGO, RN Pager #[phone] Plan of Care - Anu Reyes RN - 10/12/2021 4:02 PM EDT OUTCOME EVALUATION NOTE: OUTCOME SUMMARY: Pt A&Ox4, pt intermittently kari. Short term memory issues noted. Increased fatigue, especially after activity. No c/o pain. Moderate PO intake with encouragement Able to ambulate as SBA w/ walker. Some gait disturbence/unsteadiness noted as well as dizziness/fuzziness. Family at bedside. Plan for surgery tomorrow. NPO at midnight, initiate maintenance fluid. PLAN MOVING FORWARD: Q4H Neuro Q4H VS INDIVIDUALIZED FALL PREVENTION INTERVENTIONS: Patient-specific fall risk factors per assessment: [current deficits] Assistance: 1 assist FWW Supervision: Arms reach Surveillance: Bed locked in low position, call beavers within reach, purposeful hourly rounding, clutter free environment, bed/chair alarm on, family at bedside Patient-specific fall prevention interventions for sensory deficits provided: Yes CPG GOAL OUTCOME EVALUATION: Continue care plan as documented. Plan of Care - Anu Reyes RN - 10/11/2021 12:34 PM EDT OUTCOME EVALUATION NOTE: OUTCOME SUMMARY: Pt A&Ox4. Neuro unchanged throughout shift. C/o 4/10 AL, Tylenol given . Able to ambulate as SBA w/ walker. Some gait disturbence/unsteadiness noted. C/o difficulty speaking, but able to repeat sentences with some exaggerated articulation. Team notified. Team at bedside to discuss pt concerns, and obtain consent for biopsy. Family at bedside. PLAN MOVING FORWARD: Q2H Neuro Q2H VS INDIVIDUALIZED FALL PREVENTION INTERVENTIONS: Patient-specific fall risk factors per assessment: [current deficits] Assistance: 1 assist FWW Supervision: Arms reach Surveillance: Bed locked in low position, call beavers within reach, purposeful hourly rounding, clutter free environment, bed/chair alarm on, family at bedside Patient-specific fall prevention interventions for sensory deficits provided: Yes CPG GOAL OUTCOME EVALUATION: Continue care plan as documented. documented in this encounter Plan of Treatment [...] (TeleHealth) Hematology and Marija Baumann MD Oncology [facility] HEMATOLOGY ONCOL CAMELIAMahad [place], [place] [address] (Wo rk) 12/16/2021 Scheduled View Only Radiation Oncology 12/17/2021 Scheduled View Only Radiation Oncology 12/18/2021 Scheduled View Only Radiation Oncology 12/18/2021 Infusion Hematology and Oncology 12/21/2021 Scheduled View Only Radiation Oncology 12/22/2021 Scheduled View Only Radiation Oncology Scheduled Referrals Name Type Priority Associated Diagnoses Order S chedule Referral to Outpatient Referral Routine Brain tumor Ordered: Neuro-Oncology 10/14/2021 Referral to Outpatient Referral Routine Brain tumor Ordered: Radiation Oncology Referral to Home Outpatient Referral Routine Brain tumor Orde red: Health 10/14/2021 documented as of this encounter Procedures Procedure Name Priority Date/Time Associated Comments Diagnosis HEMOGRAM Routine 10/14/2021 12:54 Results for this [...] EDT procedure are in the results section. CT HEAD WO CONTRAST Routine 10/13/2021 6:39 PM Re sults for this (GENERIC) EDT procedure are i n the results section. SPECIMEN TO PATHOLOGY Routine 10/13/2021 4:12 PM Results for this EDT procedure are i n the results section. SOLID TUMOR NGS PANEL Routine 10/13/2021 4:11 PM EDT [facility] BENJAMIN TEST-BENJAMIN Routine 10/13/2021 4:11 PM Re sults for this EDT procedure are i n the results section. SURGICAL PATHOLOGY Routine 10/13/2021 4:11 PM Res ults for this REPORT EDT procedure are i n the results section. @STEREOTACTIC BX, ASP, 10/13/2021 3:23 PM Brain tumor OR EXC.-INTRACRANIAL EDT LESION (WRVU 19.83) STEREOTACTIC BX, ASP, Routine 10/13/2021 6:31 AM OR EXC.-INTRACRANIAL EDT LESION HEMOGRAM Routine 10/13/2021 12:34 Results for this AM EDT procedure are i n the results section. DIFFERENTIAL, AUTOMATED Routine 10/13/2021 12:34 Results for [...] EDT procedure are in the results section. TYPE AND SCREEN Routine [...] HC VENIPUNCTURE Routine 10/12/2021 9:18 AM EDT HEMOGRAM Routine 10/12/2021 12:51 Results for this AM EDT procedure are i n the results section. DIFFERENTIAL, AUTOMATED Routine 10/12/2021 12:51 Results for [...] EDT procedure are in the results section. HEMOGRAM Routine 10/11/2021 4:49 [...] are i n the results section. HC PHOSPHORUS, SERUM Routine 10/10/2021 2:48 AM R esults for this EDT procedure are i n the results section. BASIC METABOLIC PANEL Routine 10/10/2021 2:48 AM Results for this (NON-FASTING) EDT procedure are in the results section. HEMOGRAM Routine 10/10/2021 1:46 [...] EDT procedure are in the results section. MRI BRAIN WWO CONTRAST [...] Routine 10/09/2021 6:20 PM DETECTION,CAPTURE-R EDT HC HEMOGRAM Routine 10/09/2021 6:16 PM Results f or this EDT procedure are i n the results section. HC PARTIAL Routine 10/09/2021 6:16 PM Results [...] procedure are i n the results section. documented in this encounter Results (ABNORMAL) Differential, Automated (10/14/2021 12:54 AM EDT) [facility] Method Time Signature Neutrophils % 89.8 % [facility] LABORATORY Neutr Abs (ANC) 12.43 (H) 1.70 - [facility] 6.10 [facility] x10(3)/[facility] L LABORATORY Lymphocytes % 2.7 % [facility] LAB[facility]ORY Lymphocytes Abs 0.4 (L) 0.9 - 3.2 [facility] x10(3)/[facility] LABORATORY Monocytes % 6.8 % [facility] Monocyte Abs 0.9 0.3 - 0.9 [facility] x10(3)/[facility] LABORATORY Eosinophils % 0.0 % [facility] Eosinophils Abs 0.0 0.0 - 0.4 [facility] x10(3)/[facility] LABORATORY Basophils % 0.1 % [facility] LABOR[facility]ORY Basophils Abs 0.0 0.0 - 0.1 [facility] x10(3)/[facility] LABORATORY Immature Gran % 0.60 % [facility] Comment: Immature granulocytes(IG's)percentage an d absolute count will include metamyelocytes, myelocytes, and promyelo cytes. Blood smears from CBCs yielding IG's will be scanned manually for concor dance. If this scan disagrees with the automated IG or if promyelocytes are not ed, a manual differential will be performed. Radha Gran Abs 0.08 (H) 0.00 - 0.04 x10(3)/[facility] LABORATORY Specimen Anatomical Collection Method Collection Time Receive d Time (Source) Location / / Volume Laterality Blood 10/14/2021 12:54 10/14/2021 1:26 AM EDT AM EDT Resulting Agency Comment Spec In Lab Isaías Valladares MD HEMATOLOGY ORDERABLES Performing Organization Address City/State/[place] [address] (ABNORMAL) Hemogram (10/14/2021 12:54 AM EDT) Analysis Performed At Patho logist Time Signature WBC 13.8 (H) 4.0 - 9.5 [facility](3[facility] LABORATORY RBC 4.16 4.00 - [place] 5.21 [facility] x10(6)/[facility] LABORATORY Hemoglobin 13.6 11.7 - [facility] 15.5 g/dL [facility] LABORATORY Hematocrit 39.8 35.7 - [facility] 45.8 % [facility] LABORATORY MCV 95.7 (H) 82.6 - [facility] 94.4 [facility] LABORATORY MCH 32.7 (H) 27.1 - [place] 32.0 pg [facility] LABORATORY MCHC 34.2 31.7 - [facility] 35.0 g/dL [facility] LABORATORY Platelets 159 145 - 357 [facility] x10(3)/[facility] LABORATORY RDWSD 46.8 (H) 37.0 - [facility] 46.0 [facility] LABORATORY RDWCV 13.2 11.5 - [facility] 14.1 % [facility] LABORATORY MPV 9.6 7.6 - 12.9 [facility] LABORATORY nRBC % Auto 0.0 % [facility] LABORATORY nRBC Abs Auto 0.000 0.000 - [facility] 0.000 [facility] x10(3)/[facility] LABORATORY Specimen Anatomical Collection Method Collection Time Receive d Time (Source) Location / / Volume Laterality Blood 10/14/2021 12:54 10/14/2021 1:26 AM EDT AM EDT Resulting Agency Comment Spec In Lab Isaías Valladares MD HEMATOLOGY ORDERABLES Performing Organization Address City/State/[place] [address] (ABNORMAL) Basic Metabolic Panel (non-fasting) (10/14/2021 12:54 AM EDT) P athologist Signature Glucose Lvl 153 65 - 199 [facility] mg/dL [facility] LABORATORY Comment: Diabetes: >=200 mg/dL plus symp toms BUN 20 (H) 8 - 18 mg/dL [facility] LABORATORY Creatinine 0.77 0.70 - 1.20 mg/dL [facility] LABORATORY Sodium 137 135 - 145 mmol/L [facility] LABORATORY Potassium 4.3 3.5 - 5.0 mmol/L [facility] LABOR[facility]ORY Comment: Please note: ??Patients with WBC >100,00 0 may have falsely elevated Potassium levels. ??For accurate Potassium quantif ication in these patients send serum separator tube (gold top) for subsequent determinations. ??Contact the Clinical Chemistry Laboratory if there are any qu estions. Chloride 104 98 - 107 mmol/L [facility] LABORATORY CO2 24 22 - 31 mmol/L [facility] LABORATORY Anion Gap 9 5 - 15 mmol/L [facility] LABORATORY Calcium 8.5 8.5 - 10.5 mg/dL [facility] LABORATORY Estimated GFR 84 >=60 mL/min/1.73 m?? [facility] LAB[facility]ORY Comment: This patient's estimated GFR [...] EDT Resulting Agency Comment Spec In Lab Kody Singh MD CHEMISTRY ORDERABLES Performing Organization Address City/[facility]/[place] [address] Phosphorus (10/14/2021 12:54 AM EDT) P athologist Signature Phosphorus 3.4 2.5 - 4.5 [place] mg/dL [facility] LABORATORY Specimen Anatomical Collection Method Collection Time Receive d Time (Source) Location / / Volume Laterality Blood 10/14/2021 12:54 10/14/2021 1:26 AM EDT AM EDT Resulting Agency Comment Spec In Lab Kody Singh MD CHEMISTRY ORDERABLES Performing Organization Address City/[facility]/ZIP Code Phon e Number [address] Magnesium (10/14/2021 12:54 AM EDT) P athologist Signature Magnesium 0.83 0.69 - 1.07 [place] mmol/L [facility] LABORATORY Specimen Anatomical Collection Method Collection Time Receive d Time (Source) Location / / Volume Laterality Blood 10/14/2021 12:54 10/14/2021 1:26 AM EDT AM EDT Resulting Agency Comment Spec In Lab Kody Singh MD CHEMISTRY ORDERABLES Performing Organization Address City/[facility] [place] [address] Head wo Contrast [...] who have questions please contact the health critical care cns that requested your imaging first. ? Narrative 10/13/2021 6:55 PM EDT EXAMINATION: CT HEAD WO CONTRAST (GENERIC) CLINICAL HISTORY: Brain/WARE TESTER neoplasm, st aging; s/p biopsy TECHNIQUE: CT [...] HEAD WO CONTRAST (GENERI C) CLINICAL HISTORY: Brain/WARE TESTER neoplasm, st aging; s/p biopsy TECHNIQUE: CT [...] ho have questions please contact the health critical care cns that requested your imaging first. Kody Singh MD IMG CT ORDERABLES Specimen to Pathology (10/13/2021 4:12 PM EDT) Specimen Anatomical Collection Method Collection Time Receive d Time (Source) Location / / Volume Laterality AP Specimen 10/13/2021 4:12 PM 2 4:12 EDT PM EDT Narrative [facility] LABORAT ORY - 10/13/2021 4:12 PM EDT Specimen requisition ordered. ??Separate Pathology report to follow Kody Singh MD PATHOLOGY/CYTOLOGY ORDERABLE S Performing Organization Address City/State/ZIP [place] [address] [facility] Benjamin Test-Benjamin (10/13/2021 4:11 PM EDT) Component Value Ref Test Analysis Performed At [facility] Range Method Time Signature [facility] LETTY Test ? Result ?Flag ??Unit ??RefValue HAMPSHIRE [facility] MGMT Promoter Methylation, Tumor HOSPITAL ??Result Summary LABORATORY ?MGMT PROMOTER METHYLATION ABSENT [...] and its performance characteri stics ?determined by [facility] in a manner consistent with CLIA ?requirements. This test has not been cleared or approv ed by ?the U.S. Food and Drug Administration. ??Additional Information ? SEE SKY ADRIAN ?REFERENCES ?1. N Engl J Med 2005;352(10):997-1003 (PMID: [id number]) ?2. Renee Rev Neurol 2010;6:39-51 (PMID: [id number]) ?3. Lancet Oncol. 2012; 13:707-715 (PMID: [id number]) ?4. Lancet Oncol. 2012; 13: 916-926 (PMID: [id number]) ?5. Renee Rev Neurol 2014;10:372-385 (PMID: [id number]) ??Specimen ? Tis more, Tumor ??Tissue ID ?SP- [id number] ??Released by ?Eunice Guerrero M.D., Ph.D. ?Test Performed by: ?[facility] ?[address] [place] [address] ?Knitting Machine Tender: Dez Pratt M.D. Ph.D.; CLIA# [id number] Specimen Anatomical Collection Method Collection Time Receive d Time (Source) Location / / Volume Laterality Other Other / Unknown 10/13/2021 4:11 PM 2021 EDT 12:37 PM EDT Resulting Agency Comment Spec In Lab Deni Cruz MD CHEMISTRY ORDERABLES Performing Organization Address City/State/[place] [address] Surgical Pathology Report (10/13/2021 4:11 PM EDT) Component Value Ref Test Analysis Performed At [facility] gist Range Method Time Signature Surgical [id number] ? Location: [facility]; [facility]; [facility] Report The signing pathologist has (i) examined the relevant preparation(s) for the MEMORIAL specimen(s) and (ii) rendered or confirmed the diagnosis(es) . HOSPITAL LABORATORY . 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 Pathologist Performed at: ??-[facility] Dept. of Pathology, [place], [place] DISCUSSION Hematoxylin and eosin-staine d sections [...] / Volume Laterality 10/13/2021 4:11 PM EDT Kody Singh MD PATHOLOGY/CYTOLOGY ORDERABLE S Performing Organization Address City/[facility]/[place] [address] Solid Tumor NGS Panel (10/13/2021 4:11 PM EDT) Specimen Anatomical Collection Method Collection Time Receive d Time (Source) Location / / Volume Laterality Tissue 10/13/2021 4:11 PM 5:22 EDT PM EDT Resulting Agency Comment Spec In Lab Kody Singh MD PATHOLOGY/CYTOLOGY ORDERABLE S Performing Organization Address City/[facility]/ZIP Code Phon e Number [place] [address] (ABNORMAL) Differential, Automated (10/13/2021 12:34 AM EDT) [facility] gist Method Time Signature Neutrophils % 89.8 % [facility] LABORATORY Neutr Abs (ANC) 9.70 (H) 1.70 - [facility] 6.10 [facility] x10(3)/[facility] L LABORATORY Lymphocytes % 3.8 % [facility] LABORATORY Lymphocytes Abs 0.4 (L) 0.9 - 3.2 [facility] x10(3)/[facility] LABORATORY Monocytes % 5.7 % [facility] LABORATORY Monocyte Abs 0.6 0.3 - 0.9 [facility] x10(3)/[facility] LABORATORY Eosinophils % 0.0 % [facility] LABORATORY Eosinophils Abs 0.0 0.0 - 0.4 [facility] x10(3)/[facility] LABORATORY Basophils % 0.1 % [facility] LABORATORY Basophils Abs 0.0 0.0 - 0.1 [facility] x10(3)/[facility] LABORATORY Immature Gran % 0.60 % [facility] LABORATORY Comment: Immature granulocytes(IG's)percentage an d absolute count will include metamyelocytes, myelocytes, and promyelo cytes. Blood smears from CBCs yielding IG's will be scanned manually for concor dance. If this scan disagrees with the automated IG or if promyelocytes are not ed, a manual differential will be performed. Radha Gran Abs 0.06 (H) 0.00 - 0.04 x10(3)/[facility] LABORATORY Specimen Anatomical Collection Method Collection Time Receive d Time (Source) Location / / Volume Laterality Blood 10/13/2021 12:34 10/13/2021 AM EDT 12:39 AM EDT Resulting Agency Comment Spec In Lab Rasheeda Baltazar MD HEMATOLOGY ORDERABLES Performing Organization Address City/State/ZIP [place] [address] (ABNORMAL) Hemogram (10/13/2021 12:34 AM EDT) Analysis Performed At Patho logist Time Signature WBC 10.8 (H) 4.0 - 9.5 [facility] x10(3)/[facility] LABORATORY RBC 4.14 4.00 - [facility] 5.21 [facility] x10(6)/[facility] LABORATORY Hemoglobin 13.6 11.7 - [facility] 15.5 g/dL [facility] LABORATORY Hematocrit 39.8 35.7 - [facility] 45.8 % [facility] LABORATORY MCV 96.1 (H) 82.6 - [facility] 94.4 [facility] LABORATORY MCH 32.9 (H) 27.1 - [facility] 32.0 pg [facility] LABORATORY MCHC 34.2 31.7 - [facility] 35.0 g/dL [facility] LABORATORY Platelets 161 145 - 357 [facility] x10(3)/[facility] LABORATORY RDWSD 46.8 (H) 37.0 - [facility] 46.0 [facility] LABORATORY RDWCV 13.2 11.5 - [facility] 14.1 % [facility] LABORATORY MPV 10.0 7.6 - 12.9 [facility] LABORATORY nRBC % Auto 0.0 % [facility] LABORATORY nRBC Abs Auto 0.000 0.000 - [facility] 0.000 [facility] x10(3)/[facility] LABORATORY Specimen Anatomical Collection Method Collection Time Receive d Time (Source) Location / / Volume Laterality Blood 10/13/2021 12:34 10/13/2021 AM EDT 12:39 AM EDT Resulting Agency Comment Spec In Lab Rasheeda Baltazar MD HEMATOLOGY ORDERABLES Performing Organization Address City/State/ZIP [place] [address] (ABNORMAL) Basic Metabolic Panel (non-fasting) (10/13/2021 12:34 AM EDT) P athologist Signature Glucose Lvl 139 65 - 199 [facility] mg/dL [facility] LABORATORY Comment: Diabetes: >=200 mg/dL plus symp toms BUN 22 (H) 8 - 18 mg/dL [facility] LABORATORY Creatinine 0.70 0.70 - 1.20 mg/dL [facility] LABORATORY Sodium 133 (L) 135 - 145 mmol/L [facility] LABORATORY Potassium 4.1 3.5 - 5.0 mmol/L [facility] LABORATORY Comment: Please note: ??Patients with WBC >100,00 0 may have falsely elevated Potassium levels. ??For accurate Potassium quantif ication in these patients send serum separator tube (gold top) for subsequent determinations. ??Contact the Clinical Chemistry Laboratory if there are any qu estions. Chloride 101 98 - 107 mmol/L [facility] LABORATORY CO2 24 22 - 31 mmol/L [facility] LABORATORY Anion Gap 8 5 - 15 mmol/L [facility] LABORATORY Calcium 8.7 8.5 - 10.5 mg/dL [facility] LABORATORY Estimated GFR 94 >=60 mL/min/1.73 m?? [facility] LABORATORY Comment: This patient's estimated GFR [...] (Source) Location / / Volume Laterality Blood 10/13/2021 12:34 10/13/2021 AM EDT 12:39 AM EDT Resulting Agency Comment Spec In Lab Kody Singh MD CHEMISTRY ORDERABLES Performing Organization Address City/[facility]/ZIP [facility] Phon e Number [address] Phosphorus (10/13/2021 12:34 AM EDT) P athologist Signature Phosphorus 2.5 2.5 - 4.5 [facility] mg/dL [facility] LABORATORY Specimen Anatomical Collection Method Collection Time Receive d Time (Source) Location / / Volume Laterality Blood 10/13/2021 12:34 10/13/2021 AM EDT 12:39 AM EDT Resulting Agency Comment Spec In Lab Kody Singh MD CHEMISTRY ORDERABLES Performing Organization Address City/[facility]/ZIP Code Phon e Number [address] [address] Magnesium (10/13/2021 12:34 AM EDT) P athologist Signature Magnesium 0.87 0.69 - 1.07 [facility] mmol/L [facility] LABORATORY Specimen Anatomical Collection Method Collection Time Receive d Time (Source) Location / / Volume Laterality Blood 10/13/2021 12:34 10/13/2021 AM EDT 12:39 AM EDT Resulting Agency Comment Spec In Lab Kody Singh MD CHEMISTRY ORDERABLES Performing Organization Address City/[facility] Phon e Number [address] Type and Screen Validity (10/12/2021 9:18 AM EDT) Patholo gist Method Time Signature T&S only valid [facility] at [facility] LABORATORY Comment: This Type and Screen result is only valid at the [facility] Hospital Specimen Anatomical Collection Method Collection Time Receive d Time (Source) Location / / Volume Laterality Blood 10/12/2021 9:18 AM 9:25 EDT AM EDT Resulting Agency Comment Spec In Lab Rasheeda Baltazar MD BLOOD BANK ORDERABLES Performing Organization Address City/[facility]/ZIP Code Phon e Number [address] ABORH Recheck Status (10/12/2021 9:18 AM EDT) [facility] Method Time Signature ABORH Type Completed [facility] LABORATORY Specimen Anatomical Collection Method Collection Time Receive d Time (Source) Location / / Volume Laterality Blood 10/12/2021 9:18 AM 2 9:25 EDT AM EDT Resulting Agency Comment Spec In Lab Rasheeda Baltazar MD BLOOD BANK ORDERABLES Performing Organization Address City/[facility]/[place] [address] Antibody screen (10/12/2021 9:18 AM EDT) [facility] Method Time Signature Ab Screen Negative [facility] LABORATORY Expires at 10/15/2021 [facility] [id number] on: [facility] LABORATORY Specimen Anatomical Collection Method Collection Time Receive d Time (Source) Location / / Volume Laterality Blood 10/12/2021 9:18 AM 2 9:25 EDT AM EDT Resulting Agency Comment Spec In Lab Rasheeda Baltazar MD BLOOD BANK ORDERABLES Performing Organization Address City/[facility]/[place] [address] ABO/Rh Typing (10/12/2021 9:18 AM EDT) P athologist Signature ABORh Type A Pos [facility] LABORATORY Specimen Anatomical Collection Method Collection Time Receive d Time (Source) Location / / Volume Laterality Blood 10/12/2021 9:18 AM 2 9:25 EDT AM EDT Resulting Agency Comment Spec In Lab Rasheeda Baltazar MD BLOOD BANK ORDERABLES Performing Organization Address City/[facility]/[place] [address] (ABNORMAL) Differential, Automated (10/12/2021 12:51 AM EDT) [facility] gist Method Time Signature Neutrophils % 90.4 % [facility] LABORATORY Neutr Abs (ANC) 12.20 (H) 1.70 - [facility] 6.10 [facility] x10(3)/[facility] LABORATORY Lymphocytes % 3.2 % [facility] LABORATORY Lymphocytes Abs 0.4 (L) 0.9 - 3.2 [facility] x10(3)/[facility] LABORATORY Monocytes % 5.9 % [facility] LABORATORY Monocyte Abs 0.8 0.3 - 0.9 [facility] x10(3)/[facility] LABORATORY Eosinophils % 0.0 % [facility] LABORATORY Eosinophils Abs 0.0 0.0 - 0.4 [facility] x10(3)/[facility] LABORATORY Basophils % 0.1 % [facility] LABORATORY Basophils Abs 0.0 0.0 - 0.1 [facility] x10(3)/[facility] LABORATORY Immature Gran % 0.40 % [facility] LABORATORY Comment: Immature granulocytes(IG's)percentage an d absolute count will include metamyelocytes, myelocytes, and promyelo cytes. Blood smears from CBCs yielding IG's will be scanned manually for concor dance. If this scan disagrees with the automated IG or if promyelocytes are not ed, a manual differential will be performed. Radha Gran Abs 0.06 (H) 0.00 - 0.04 x10(3)/[facility] LABORATORY Specimen Anatomical Collection Method Collection Time Receive d Time (Source) Location / / Volume Laterality Blood 10/12/2021 12:51 10/12/2021 1:01 AM EDT AM EDT Resulting Agency Comment Spec In Lab Isaías Valladares MD HEMATOLOGY ORDERABLES Performing Organization Address City/State/ZIP [place] [address] (ABNORMAL) Hemogram (10/12/2021 12:51 AM EDT) Analysis Performed At [facility] logist Time Signature WBC 13.5 (H) 4.0 - 9.5 [facility] x10(3)/[facility] LABORATORY RBC 4.05 4.00 - LETTY MENDIOLACK 5.21 [facility] x10(6)/[facility] LABORATORY Hemoglobin 13.4 11.7 - [facility] 15.[facility] g/dL [facility] LABORATORY Hematocrit 38.4 35.7 - [facility] 45.8 % [facility] LABORATORY MCV 94.8 (H) 82.6 - [facility] 94.4 [facility] LABORATORY MCH 33.1 (H) 27.1 - LETTY MERLY 32.0 pg [facility] LABORATORY MCHC 34.9 31.7 - [facility] 35.[facility] g/dL [facility] LABORATORY Platelets 156 145 - 357 [facility] x10(3)/[facility] LABORATORY RDWSD 45.5 37.0 - [facility] 46.0 [facility] LABORATORY RDWCV 13.1 11.5 - [facility] 14.1 % [facility] LABORATORY MPV 9.7 7.6 - 12.9 [facility] LABORATORY nRBC % Auto 0.0 % [facility] LABORATORY nRBC Abs Auto 0.000 0.000 - [facility] 0.000 [facility] x10(3)/[facility] LABORATORY Specimen Anatomical Collection Method Collection Time Receive d Time (Source) Location / / Volume Laterality Blood 10/12/2021 12:51 10/12/2021 1:01 AM EDT AM EDT Resulting Agency Comment Spec In Lab Isaías Valladares MD HEMATOLOGY ORDERABLES Performing Organization Address City/State/ZIP [place] [address] (ABNORMAL) Basic Metabolic Panel (non-fasting) (10/12/2021 12:51 AM EDT) P athologist Signature Glucose Lvl 167 65 - 199 [facility] mg/dL [facility] LABORATORY Comment: Diabetes: >=200 mg/dL plus symp toms BUN 19 (H) 8 - 18 mg/dL [facility] LABORATORY Creatinine 0.68 (L) 0.70 - 1.20 mg/dL [facility] LABORATORY Sodium 137 135 - 145 mmol/L [facility] LABORATORY Potassium 4.3 3.5 - 5.0 mmol/L [facility] LABORATORY Comment: Please note: ??Patients with WBC >100,00 0 may have falsely elevated Potassium levels. ??For accurate Potassium quantif ication in these patients send serum separator tube (gold top) for subsequent determinations. ??Contact the Clinical Chemistry Laboratory if there are any qu estions. Chloride 103 98 - 107 mmol/L [facility] LABORATORY CO2 24 22 - 31 mmol/L [facility] LABORATORY Anion Gap 10 5 - 15 mmol/L [facility] LABORATORY Calcium 8.9 8.5 - 10.5 mg/dL [facility] LABORATORY Estimated GFR 95 >=60 mL/min/1.73 m?? [facility] LABORATORY Comment: This patient's estimated GFR [...] Location / / Volume Laterality Blood 10/12/2021 12:51 10/12/2021 1:01 AM EDT AM EDT Resulting Agency Comment Spec In Lab Kody Singh MD CHEMISTRY ORDERABLES Performing Organization Address City/State/ZIP [place] [address] Phosphorus (10/12/2021 12:51 AM EDT) P athologist Signature Phosphorus 2.7 2.5 - 4.5 [facility] mg/dL [facility] LABORATORY Specimen Anatomical Collection Method Collection Time Receive d Time (Source) Location / / Volume Laterality Blood 10/12/2021 12:51 10/12/2021 1:01 AM EDT AM EDT Resulting Agency Comment Spec In Lab Kody Singh MD CHEMISTRY ORDERABLES Performing Organization Address City/State/ZIP Code Phon e Number [address] Magnesium (10/12/2021 12:51 AM EDT) P athologist Signature Magnesium 0.87 0.69 - 1.07 [facility] mmol/L [facility] LABORATORY Specimen Anatomical Collection Method Collection Time Receive d Time (Source) Location / / Volume Laterality Blood 10/12/2021 12:51 10/12/2021 1:01 AM EDT AM EDT Resulting Agency Comment Spec In Lab Kody Singh MD CHEMISTRY ORDERABLES Performing Organization Address City/[facility]/ZIP [facility] Phon e Number [address] (ABNORMAL) Differential, Automated (10/11/2021 4:49 AM EDT) Patholo gist Method Time Signature Neutrophils % 93.6 % [facility] LABORATORY Neutr Abs (ANC) 15.11 (H) 1.70 - [facility] 6.10 [facility] x10(3)/[facility] L LABORATORY Lymphocytes % 2.8 % [facility] LABORATORY Lymphocytes Abs 0.4 (L) 0.9 - 3.2 [facility] x10(3)/[facility] LABORATORY Monocytes % 2.8 % [facility] LABORATORY Monocyte Abs 0.4 0.3 - 0.9 [facility] x10(3)/[facility] LABORATORY Eosinophils % 0.0 % [facility] LABORATORY Eosinophils Abs 0.0 0.0 - 0.4 [facility] x10(3)/[facility] LABORATORY Basophils % 0.1 % [facility] LABORATORY Basophils Abs 0.0 0.0 - 0.1 [facility] x10(3)/[facility] LABORATORY Immature Gran % 0.70 % [facility] LABORATORY Comment: Immature granulocytes(IG's)percentage an d absolute count will include metamyelocytes, myelocytes, and promyelo cytes. Blood smears from CBCs yielding IG's will be scanned manually for concdarlyn danshaina. If this scan disagrees with the automated IG or if promyelocytes are not ed, a manual differential will be performed. Radha Gran Abs 0.12 (H) 0.00 - 0.04 x10(3)/[facility] LABORATORY Specimen Anatomical Collection Method Collection Time Receive d Time (Source) Location / / Volume Laterality Blood 10/11/2021 4:49 AM 4:55 EDT AM EDT Resulting Agency Comment Spec In Lab Isaías Valladares MD HEMATOLOGY ORDERABLES Performing Organization Address City/State/ZIP [place] [address] (ABNORMAL) Hemogram (10/11/2021 4:49 AM EDT) Analysis Performed At Patho logist Time Signature WBC 16.1 (H) 4.0 - 9.5 [facility] x[facility](3[facility] LABORATORY RBC 4.11 4.00 - [facility] 5.21 [facility] x10(6)/[facility] LABORATORY Hemoglobin 13.5 11.7 - [facility] g/dL [facility] LABORATORY Hematocrit 39.1 35.7 - [facility] 45.8 % [facility] LABORATORY MCV 95.1 (H) 82.6 - [facility] 94.4 [facility] LABORATORY MCH 32.8 (H) 27.1 - [facility] MERLY 32.0 pg [facility] LABORATORY MCHC 34.5 31.7 - [facility] 35.0 g/dL [facility] LABORATORY Platelets 163 145 - 357 [facility] x[facility](3[facility] LABORATORY RDWSD 45.6 37.0 - LET[facility] MERLY 46.0 [facility] LABORATORY RDWCV 13.0 11.5 - LET[facility] MERLY 14.1 % [facility] LABORATORY MPV 9.8 7.6 - 12.9 [facility] nRBC % Auto 0.0 % [facility] LABORATORY nRBC Abs Auto 0.000 0.000 - [facility] 0.000 [facility] x10(3)/[facility] LABORATORY Specimen Anatomical Collection Method Collection Time Receive d Time (Source) Location / / Volume Laterality Blood 10/11/2021 4:49 AM 2 4:55 EDT AM EDT Resulting Agency Comment Spec In Lab Isaías Valladares MD HEMATOLOGY ORDERABLES Performing Organization Address City/[facility]/ZIP Code Phon e Number [address] Magnesium (10/11/2021 4:49 AM EDT) P athologist Signature Magnesium 0.84 0.69 - 1.07 [facility] mmol/L [facility] LABORATORY Specimen Anatomical Collection Method Collection Time Receive d Time (Source) Location / / Volume Laterality Blood 10/11/2021 4:49 AM 2 4:55 EDT AM EDT Resulting Agency Comment Spec In Lab Kody Singh MD CHEMISTRY ORDERABLES Performing Organization Address City/[facility]/[place] [address] (ABNORMAL) Basic Metabolic Panel (non-fasting) (10/10/2021 2:48 AM EDT) athologist Signature Glucose Lvl 142 65 - 199 [facility] mg/dL [facility] LABORATORY Comment: Diabetes: >=200 mg/dL plus symp toms BUN 14 8 - 18 mg/dL [facility] LABORATORY Creatinine 0.61 (L) 0.70 - 1.20 mg/dL [facility] LABORATORY Sodium 138 135 - 145 mmol/L [facility] LABORATORY Potassium 3.9 3.5 - 5.0 mmol/L [facility] LABORATORY Comment: Please note: ??Patients with WBC >100,00 0 may have falsely elevated Potassium levels. ??For accurate Potassium quantif ication in these patients send serum separator tube (gold top) for subsequent determinations. ??Contact the Clinical Chemistry Laboratory if there are any qu estions. Chloride 102 98 - 107 mmol/L [facility] LABORATORY CO2 25 22 - 31 mmol/L [facility] LABORATORY Anion Gap 11 5 - 15 mmol/L [facility] LABORATORY Calcium 9.3 8.5 - 10.5 mg/dL [facility] LABORATORY Estimated GFR 97 >=60 mL/min/1.73 m?? [facility] LABORATORY Comment: This patient's estimated GFR [...] (Source) Location / / Volume Laterality Blood 10/10/2021 2:48 AM 2 2:53 EDT AM EDT Resulting Agency Comment Spec In Lab Kody Singh MD CHEMISTRY ORDERABLES Performing Organization Address City/State/ZIP Code Phon e Number [address] Phosphorus (10/10/2021 2:48 AM EDT) P athologist Signature Phosphorus 3.4 2.5 - 4.5 [facility] mg/dL [facility] LABORATORY Specimen Anatomical Collection Method Collection Time Receive d Time (Source) Location / / Volume Laterality Blood 10/10/2021 2:48 AM 2 2:53 EDT AM EDT Resulting Agency Comment Spec In Lab Kody Singh MD CHEMISTRY ORDERABLES Performing Organization Address City/[facility]/ZIP Code Phon e Number [address] (ABNORMAL) Differential, Automated (10/10/2021 1:46 AM EDT) Patholo gist Method Time Signature Neutrophils % 93.3 % [facility] LABORATORY Neutr Abs (ANC) 11.53 (H) 1.70 - [facility] 6.10 [facility] x10(3)/[facility] L LABORATORY Lymphocytes % 3.7 % [facility] LABORATORY Lymphocytes Abs 0.5 (L) 0.9 - 3.2 [facility] x10(3)/[facility] LABORATORY Monocytes % 1.7 % [facility] LABORATORY Monocyte Abs 0.2 (L) 0.3 - 0.9 [facility] x10(3)/[facility] LABORATORY Eosinophils % 0.0 % [facility] LABORATORY Eosinophils Abs 0.0 0.0 - 0.4 [facility] x10(3)/[facility] LABORATORY Basophils % 0.2 % [facility] LABORATORY Basophils Abs 0.0 0.0 - 0.1 [facility] x10(3)/[facility] LABORATORY Immature Gran % 1.10 % [facility] LABORATORY Comment: Immature granulocytes(IG's)percentage an d absolute count will include metamyelocytes, myelocytes, and promyelo cytes. Blood smears from CBCs yielding IG's will be scanned manually for concor dance. If this scan disagrees with the automated IG or if promyelocytes are not ed, a manual differential will be performed. Radha Gran Abs 0.13 (H) 0.00 - 0.04 x10(3)/[facility] LABORATORY Specimen Anatomical Collection Method Collection Time Receive d Time (Source) Location / / Volume Laterality Blood 10/10/2021 1:46 AM 2 1:53 EDT AM EDT Resulting Agency Comment Spec In Lab Serenity Wisdom APRN HEMATOLOGY ORDERABLES Performing Organization Address City/State/ZIP [place] [address] (ABNORMAL) Hemogram (10/10/2021 1:46 AM EDT) Analysis Performed At Patho logist Time Signature WBC 12.4 (H) 4.0 - 9.5 [facility] x10(3)/[facility] LABORATORY RBC 4.47 4.00 - [facility] 5.21 [facility] x10(6)/[facility] LABORATORY Hemoglobin 14.5 11.7 - [facility] 15.[facility] g/dL [facility] LABORATORY Hematocrit 42.1 35.7 - [facility] 45.8 % [facility] LABORATORY MCV 94.2 82.6 - [facility] 94.4 [facility] LABORATORY MCH 32.4 (H) 27.1 - [facility] PERALTACOCK 32.0 pg [facility] LABORATORY MCHC 34.4 31.7 - [facility] 35.0 g/dL [facility] LABORATORY Platelets 165 145 - 357 [facility] x10(3)/[facility] LABORATORY RDWSD 44.7 37.0 - [facility] 46.0 [facility] LABORATORY RDWCV 13.1 11.5 - [facility] 14.1 % [facility] LABORATORY MPV 10.2 7.6 - 12.9 [facility] LABORATORY nRBC % Auto 0.0 % [facility] LABORATORY nRBC Abs Auto 0.000 0.000 - [facility] 0.000 [facility] x10(3)/[facility] LABORATORY Specimen Anatomical Collection Method Collection Time Receive d Time (Source) Location / / Volume Laterality Blood 10/10/2021 1:46 AM 1:53 EDT AM EDT Resulting Agency Comment Spec In Lab Serenity Wisdom APRN HEMATOLOGY ORDERABLES Performing Organization Address City/State/ZIP [place] [address] (ABNORMAL) Basic Metabolic Panel (non-fasting) (10/10/2021 1:46 AM EDT) P athologist Signature Glucose Lvl 138 65 - 199 [facility] mg/dL [facility] LABORATORY Comment: Diabetes: >=200 mg/dL plus symp toms BUN 14 8 - 18 mg/dL [facility] LABORATORY Creatinine 0.67 (L) 0.70 - 1.20 mg/dL [facility] LABORATORY Sodium 135 135 - 145 mmol/L [facility] LABORATORY Potassium Not Perf 3.5 - 5.0 [facility] LABORATORY Comment: Unable to quantitate due to sample hemol ysis. ??Sample redraw suggested. Called by: laine, Read back by: alberto lopez no, Date/Time:10/10/21 02:33. Please note: ??Patients with WBC >100,00 0 may have falsely elevated Potassium levels. ??For accurate Potassium quantif ication in these patients send serum separator tube (gold top) for subsequent determinations. ??Contact the Clinical Chemistry Laboratory if there are any qu estions. Chloride 100 98 - 107 mmol/L [facility] LABORATORY CO2 23 22 - 31 mmol/L [facility] LABORATORY Anion Gap 12 5 - 15 mmol/L [facility] LABORATORY Calcium 9.7 8.5 - 10.5 mg/dL [facility] LABORATORY Estimated GFR 95 >=60 mL/min/1.73 m?? [facility] LABORATORY Comment: This patient's estimated GFR [...] (Source) Location / / Volume Laterality Blood 10/10/2021 1:46 AM 2 1:53 EDT AM EDT Resulting Agency Comment Spec In Lab Kody Singh MD CHEMISTRY ORDERABLES Performing Organization Address City/State/ZIP [place] [address] Magnesium (10/10/2021 1:46 AM EDT) P athologist Signature Magnesium 0.85 0.69 - 1.07 [facility] mmol/L [facility] LABORATORY Specimen Anatomical Collection Method Collection Time Receive d Time (Source) Location / / Volume Laterality Blood 10/10/2021 1:46 AM 1:53 EDT AM EDT Resulting Agency Comment Spec In Lab Kody Singh MD CHEMISTRY ORDERABLES Performing Organization Address City/State/ZIP Code [place] [address] MRI Brain wwo Contrast [...] who have questions please contact the health critical care cns that requested your imaging first. ? Narrative 10/10/2021 9:42 AM EDT EXAMINATION: MRI BRAIN WWO CONTRAST (GENERIC) CLINICAL HISTORY: Brain/WARE TESTER neoplasm, as sess treatment response 66 yo [...] BRAIN WWO CONTRAST (GEN THAIS) CLINICAL HISTORY: Brain/WARE TESTER neoplasm, as sess treatment response 66 yo [...] ho have questions please contact the health critical care cns that requested your imaging first. Kody Singh MD IMG MRI ORDERABLES Type and Screen Validity (10/09/2021 6:20 PM EDT) [facility] Method Time Signature T&S only valid [facility] LABORATORY Comment: This Type and Screen result is only valid at the [facility] Hospital Specimen Anatomical Collection Method Collection Time Receive d Time (Source) Location / / Volume Laterality Blood 10/09/2021 6:20 PM 2 6:30 EDT PM EDT Resulting Agency Comment Spec In Lab Serenity Wisdom APRN BLOOD BANK ORDERABLES Performing Organization Address City/State/ZIP [place] [address] ABORH Recheck Status (10/09/2021 6:20 PM EDT) [facility] Method Time Signature ABORH Recheck Order Placed [facility] ABORH Type Complete [facility] LABORATORY Specimen Anatomical Collection Method Collection Time Receive d Time (Source) Location / / Volume Laterality Blood 10/09/2021 6:20 PM 2 6:30 EDT PM EDT Resulting Agency Comment Spec In Lab Serenity Wisdom APRN BLOOD BANK ORDERABLES Performing Organization Address City/State/[place] [address] Antibody screen (10/09/2021 6:20 PM EDT) Patholo gist Method Time Signature Ab Screen Negative [facility] LABORATORY Expires at 10/12/2021 [facility] [id number] on: [facility] LABORATORY Specimen Anatomical Collection Method Collection Time Receive d Time (Source) Location / / Volume Laterality Blood 10/09/2021 6:20 PM 2 6:30 EDT PM EDT Resulting Agency Comment Spec In Lab Serenity Wisdom APRN BLOOD BANK ORDERABLES Performing Organization Address [facility]/[place] [address] ABO/Rh Typing (10/09/2021 6:20 PM EDT) P athologist Signature ABORh Type A Pos [facility] LABORATORY Specimen Anatomical Collection Method Collection Time Receive d Time (Source) Location / / Volume Laterality Blood 10/09/2021 6:20 PM 2 6:30 EDT PM EDT Resulting Agency Comment Spec In Lab Serenity Wisdom APRN BLOOD BANK ORDERABLES Performing Organization Address [facility] [place] [address] APTT (10/09/2021 6:16 PM EDT) P athologist Signature PTT 25 25 - 37 sec [facility] LABOR[facility]ORY Comment: The PTT is NOT [...] Wisdom APRN HEMATOLOGY ORDERABLES Performing Organization Address City/[facility]/ZIP [place] [address] (ABNORMAL) Prothrombin Time (10/09/2021 6:16 PM EDT) P athologist Signature PT 13.5 (H) 9.4 - 12.5 [facility] sec [facility] LABORATORY INR 1.2 [facility] Comment: An INR <2.0 indicates [...] Organization Address City/State/ZIP [place] [address] (ABNORMAL) Hemogram (10/09/2021 6:16 PM EDT) Analysis Performed At Patho logist Time Signature WBC 7.6 4.0 - 9.5 [facility] x10(3[facility] LABORATORY RBC 4.20 4.00 - LETTY [place] 5.21 [facility] x10(6)/[facility] LABORATORY Hemoglobin 13.7 11.7 - [place] 15.5 g/dL [facility] LABORATORY Hematocrit 39.7 35.7 - [place] 45.8 % [facility] LABORATORY MCV 94.5 (H) 82.6 - [place] 94.4 [facility] LABORATORY MCH 32.6 (H) 27.1 - [place] 32.0 pg [facility] LABORATORY MCHC 34.5 31.7 - [place] 35.0 g/dL [facility] LABORATORY Platelets 164 145 - 357 [facility] x10(3[facility] LABORATORY RDWSD 44.9 37.0 - [place] 46.0 [facility] LABORATORY RDWCV 12.9 11.5 - [place] 14.1 % [facility] LABORATORY MPV 9.5 7.6 - 12.9 [place] [facility] LABORATORY nRBC % Auto 0.0 % [facility] LABORATORY nRBC Abs Auto 0.000 0.000 - [place] 0.000 [facility] x10(3)/[facility] LABORATORY Specimen Anatomical Collection Method Collection Time Receive d Time (Source) Location / / Volume Laterality Blood 10/09/2021 6:16 PM 6:31 EDT PM EDT Resulting Agency Comment Spec In Lab Serenity M Artis HOLLOWAY HEMATOLOGY ORDERABLES Performing Organization Address City/State/ZIP [place] [address] Troponin (10/09/2021 6:16 PM EDT) P athologist Signature Troponin-T <0.01 0.00 - 0.00 [facility]mL [facility] LABORATORY Comment: The 99th percentile for Troponin T is le ss than 0.01 ng/mL, any detectable cTnT concentration using this assay should be considered elevated. According to the third universal definit ion of myocardial infarction the following criteria with a clinical prese ntation consistent with acute myocardial ischemia meets the diagnosis for a myocardial infarction (CT). Detection of a rise and/or fall of [...] additional sample may be indicated. Reference: Third [place] Definition of Myocardial Infarction. Journal of the [place] [employer] 2012;60:1581-98 Specimen Anatomical Collection Method Collection Time Receive d Time (Source) Location / / Volume Laterality Blood 10/09/2021 6:16 PM 2 6:31 EDT PM EDT Resulting Agency Comment Spec In Lab Serenity Wisdom APRN CHEMISTRY ORDERABLES Performing Organization Address City/[facility]/ZIP Code Phon e Number [place] [phone] Electrolytes panel (10/09/2021 6:16 PM EDT) athologist Signature Sodium 135 135 - 145 [facility] mmol/L [facility] LABORATORY Potassium 4.0 3.5 - 5.0 [facility] mmol/L [facility] LABORATORY Comment: Please note: ??Patients with WBC >100,00 0 may have falsely elevated Potassium levels. ??For accurate Potassium quantif ication in these patients send serum separator tube (gold top) for subsequent determinations. ??Contact the Clinical Chemistry Laboratory if there are any qu estions. Chloride 100 98 - 107 mmol/L [facility] LABORATORY CO2 24 22 - 31 mmol/L [facility] LABORATORY Anion Gap 11 5 - 15 mmol/L [facility] LABORATORY Specimen Anatomical Collection Method Collection Time Receive d Time (Source) Location / / Volume Laterality Blood 10/09/2021 6:16 PM 2 6:31 EDT PM EDT Resulting Agency Comment Spec In Lab Serenity Wisdom APRN CHEMISTRY ORDERABLES Performing Organization Address City/[facility]/[place] [address] POCT Glucose (10/09/2021 5:27 PM EDT) P athologist Signature POC Glucose 146 65 - 199 [facility] mg/dL [facility] LABORATORY Comment: Supplemental ranges: <140 mg/dL before meals <180 mg/dL all other times of the day Specimen Anatomical Collection Method Collection Time Receive d Time (Source) Location / / Volume Laterality Blood 10/09/2021 5:27 PM 2 5:27 EDT PM EDT Kody Singh MD POINT OF CARE TEST ORDERABLE S Performing Organization Address City/State/ZIP Code Phon e Number [facility] [place] [address] documented in this encounter Visit Diagnoses Diagnosis Brain tumor Neoplasm of unspecified nature of brain documented in this encounter Admitting Diagnoses Diagnosis Brain tumor Neoplasm of unspecified nature of brain documented in this encounter Administered Medications Inactive Administered Medications - up to 3 most recent administrations Medication Order MAR Action Action Date Dose Rate Site acetaminophen (Tylenol) tablet Given 10/14/2021 12:43 PM EDT 650 mg 650 mg 650 mg, Oral, EVERY 6 HOURS PRN, Starting on Tue10/09/21 at 1759, Until Tue10/14/21 at 1507, Pain, Fever, Administer for temperature greater than or equal to 38.2 degrees celsius, or for MILD (1-3) pain Maximum dose of acetaminophen is 4000 mg from all sources in 24 hours. When ordered for pain, acetaminophen should be given even when other ordered pain medications are indicated., Routine Given 10/13/2021 6:08 PM EDT 650 mg Given 10/13/2021 10:51 AM EDT 650 mg ascorbic acid (Vitamin C) (Vitamin C) tablet Given 08/2021 9:21 AM EDT 500 mg 500 mg 500 mg, Oral, EVERY OTHER DAY, First dose on Tue10/09/21 at 1845, Until Discontinued, Routine Given 10/13/2021 8:22 AM EDT 500 mg Given 10/11/2021 9:00 AM EDT 500 mg calcium carbonate (Tums) chewable tablet 500 Given 08/2021 9:22 AM EDT 500 mg mg 500 mg, Oral, DAILY, First dose on Tue10/09/21 at 1845, Until Discontinued, Routine Given 10/13/2021 8:22 AM EDT 500 mg Given 10/12/2021 8:42 AM EDT 500 mg calcium citrate (Calcitrate) tablet 1,900 Given 10/14/2021 9 :27 AM EDT 1,900 mg mg 1,900 mg, Oral, DAILY, First dose on Tue10/09/21 at 1845, Until Discontinued, 1900 mg ordered dose = 400 mg elemental Ca, Routine Given 10/13/2021 8:22 AM EDT 1,900 mg Given 10/12/2021 8:42 AM EDT 1,900 mg dexAMETHasone (Decadron) tablet 4 mg Given 10/14/2021 11:37 AM EDT 4 mg 4 mg, Oral, EVERY 6 HOURS SCHEDULED, First dose on Tue10/09/21 at 1845, Until Discontinued, Routine Given 10/14/2021 5:48 AM EDT 4 mg Given 10/13/2021 11:42 PM EDT 4 mg docusate sodium (Colace) capsule 100 mg Given 10/14/2021 9:22 AM EDT 100 mg 100 mg, Oral, 2 TIMES DAILY, First dose on Tue10/09/21 at 2100, Until Discontinued, Routine Given 10/13/2021 8:46 PM EDT 100 mg Given 10/13/2021 8:22 AM EDT 100 mg gadoterate meglumine (Dotarem) (0.5 mMol/mL) Given 03/2021 10:20 PM EDT 14 mLs injection solution 0-100 mL 0-100 mL, Intravenous, ONCE PRN, 1 dose, Starting on Tue10/09/21 at 2235, Until Tue10/09/21 at 2220, Per Protocol, Radiology Contrast, Routine heparin (porcine) (5,000 Given 10/11/2021 9:00 PM 5,000 Units Right Lower units/1 mL) subcutaneous EDT Quadrant injection 5,000 Units 5,000 Units, Subcutaneous, EVERY 12 HOURS SCHEDULED (2 times per day), First dose on Tue10/10/21 at 1000, Until Discontinued, Routine Given 10/11/2021 9:29 AM EDT 5,000 Units Given 10/10/2021 8:43 PM EDT 5,000 Units heparin (porcine) (5,000 units/1 mL) Given 10/12/2021 8:41 AM ED T 5,000 Units subcutaneous injection 5,000 Units 5,000 Units, Subcutaneous, EVERY 12 HOURS SCHEDULED (2 times per day), 1 dose, First dose (after last modification) on Tue10/12/21 at 0900, Routine levETIRAcetam (Keppra) tablet 500 mg Given 10/14/2021 9:21 AM EDT 500 mg 500 mg, Oral, 2 TIMES DAILY, First dose on Tue10/09/21 at 2100, Until Discontinued, Routine Given 10/13/2021 8:46 PM EDT 500 mg Given 10/13/2021 8:22 AM EDT 500 mg levothyroxine (Synthroid) tablet 100 mcg Given 10/10/2021 11:03 AM EDT 100 mcg 100 mcg, Oral, DAILY, First dose on Tue10/09/21 at 1845, Until Discontinued, Routine levothyroxine (Synthroid) tablet 100 mcg Given 10/14/2021 5:49 AM EDT 100 mcg 100 mcg, Oral, EVERY MORNING, First dose (after last modification) on Tue10/11/21 at 0600, Until Discontinued, Routine Given 10/13/2021 5:20 AM EDT 100 mcg Given 10/12/2021 5:45 AM EDT 100 mcg magnesium sulfate 2 g in sterile water New Bag 10/10/2021 3:11 AM EDT 2 g 25 mL/hr 50 mL infusion 2 g, Intravenous, ONCE, 1 dose, On 10/10/21 at 0345, Administer over 120 Minutes pantoprazole EC (Protonix) tablet 20 mg Given 10/14/2021 9:22 AM EDT 20 mg 20 mg, Oral, DAILY, First dose on Tue10/09/21 at 1845, Until Discontinued, DO NOT CRUSH OR OPEN, Routine Given 10/13/2021 8:22 AM EDT 20 mg Given 10/12/2021 8:42 AM EDT 20 mg polyethylene glycoL (Miralax) packet 17 g Given 10/14/2021 9:21 AM EDT 17 g 17 g, Oral, DAILY, First dose on Tue10/12/21 at 0900, Until Discontinued, Routine Given 10/12/2021 8:41 AM EDT 17 g potassium chloride 10 mEq in sterile alton er 100 mL infusion 10 mEq, Intravenous, EVERY 1 HOUR PRN, S tarting on 10/10/21 at 0254, Until Tue10/14/21 at 1507, Administer over 60 Minutes, hypokalemi a, Administer 2 times 10 meq/100 mL bags, each over 30-60 minutes for serum potassium (mMol/L) of 3.9 - 4 See instructions for Potassium Protocol in DH online p barbara. potassium chloride 10 mEq in sterile alton er 100 mL infusion 10 mEq, Intravenous, EVERY 1 HOUR PRN, S tarting on 10/10/21 at 0254, Until Tue10/14/21 at 1507, Administer over 60 Minutes, hypokalemi a, Administer 4 times 10 meq/100 mL bags, each over 30-60 minutes for serum potassium (mMol/L) of 3.3 - 3.8 See instructions for Potassium Protocol in online p barbara. potassium chloride 10 mEq in New Bag 10/10/2021 5:17 AM EDT 10 mEq 100 mL/hr sterile water 100 mL infusion 10 mEq, Intravenous, EVERY 1 HOUR PRN, Starting on 10/10/21 at 0254, Until Tue10/14/21 at 1507, Administer over 60 Minutes, hypokalemia, Administer Administer 6 times 10 meq/100 mL bags, each over 30-60 minutes for serum potassium (mMol/L) of 2.8 - 3.2 See instructions for Potassium Protocol in online policies. sodium chloride 0.9% infusion New Bag 10/13/2021 8:21 AM EDT 100 mL/hr 100 mL/hr 100 mL/hr, Intravenous, CONTINUOUS, Starting on Tue10/13/21 at 0000, Until Tue10/13/21 at 1852 Rate/Dose Verify 10/13/2021 6:48 AM EDT 100 mL/hr 100 mL/hr Rate/Dose Verify 10/13/2021 6:00 AM EDT 100 mL/hr 100 mL/hr sodium chloride tablet 1 g Given 10/14/2021 9:22 AM EDT 1 g 1 g, Oral, 3 TIMES DAILY, First dose on Tue10/13/21 at 1730, Until Discontinued, STAT Given 10/13/2021 8:46 PM EDT 1 g Given 10/13/2021 6:56 PM EDT 1 g documented in this encounter Active and Recently Administered Medications Times are shown in EDT. Scheduled Medication Order 10/12/2021 10/13/2021 10/14/2021 ascorbic acid (Vitamin C) (Vitamin C) tablet 500 mg 0822 (Given - Provider: Anu Morris RN)1523 (APR Hold - Provider: Admin Adt - Reason: Transfer to a Procedural area)1851 (APR Unhold - Provider: Admin Adt) 0921 (Given - Provider: Steven Serrato RN) 500 mg, Oral, EVERY OTHER DAY, First dos e on Tue10/09/21 at 1845, Until Discontinued, Routine calcium carbonate (Tums) chewable tablet 500 mg 0842 ( Given - Provider: Anu Morris RN) 0822 (Given - Provider: Anu Morris RN)1523 (MAR Hold - Provider: Admin Adt - Reason: Transfer to a Procedural area)1850 (MAR Unhold - Provider: Admin Adt) 0922 (Given - Provider: Steven bar RN) 500 mg, Oral, DAILY, First dose on Tue at 1845, Until Discontinued, Routine calcium citrate (Calcitrate) tablet 1,900 mg 0842 (Giv en - Provider: Anu Morris RN) 0822 (Given - Provider: Anu Morris RN)152 (MAR Hold - Provider: Admin Adt - Reason: Transfer to a Procedural area)1850 (APR Unhold - Provider: Admin Adt) 0927 (Given - Provider: Steven bar RN) 1,900 mg, Oral, DAILY, First dose on Tue10/09/21 at 1845, Until Discontinued, 1900 mg ordered dose = 400 mg elemental Ca, Routine dexAMETHasone (Decadron) tablet 4 mg 0546 (Given - Pro vider: Harvey Bautista RN)1147 (Given - Provider: Anu Morris RN)1732 (Given - Provider: Anu Morris RN)2355 (Given - Provider: Harvey Bautista RN) 0520 (Given - Provider: Harvey Bautista RN)1200 (Given - Provider: Anu Morris RN)152 (MAR Hold - Provider: Admin Adt - Reason: Transfer to a Procedural area)1800 (Automatically Held - Provider: Admin Adt)1850 ([facility] Unhold - Provider: Admin Adt) 0548 (Given - Provider: Harvey Bautista RN)1137 (Given - Provider: Steven Serrato RN) 4 mg, Oral, EVERY 6 HOURS SCHEDULED, Fir st dose on Tue10/09/21 at 1845, Until Discontinued, Routine 2342 (Given - Provider: Harvey Bautista RN) docusate sodium (Colace) capsule 100 mg 0842 (Given - Provider: Anu Morris RN)2050 (Given - Provider: Harvey Bautista RN) 0822 (Given - Provider: Anu Morris RN)152 ([facility] Hold - Provider: Admin Adt - Reason: Transfer to a Procedural area)1850 ([facility] Unhold - Provider: Admin Adt)2045 (Given - Provider: Harvey Bautista RN) 0922 (Given - Provider: Steven bar RN) 100 mg, Oral, 2 TIMES DAILY, First dose on Tue10/09/21 at 2100, Until Discontinued, Routine heparin (porcine) (5,000 units/1 mL) sub cutaneous injection 5,000 Units (COMPLETED) 0841 (Given - Provider: Anu Morris RN) 5,000 Units, Subcutaneous, EVERY 12 HOUR S SCHEDULED (2 times per day), 1 dose, First dose (after last modification) on Tue10/12/21 at 0900, Routine levETIRAcetam (Keppra) tablet 500 mg 0841 (Given - Pro vider: Anu Morris RN)2049 (Given - Provider: Harvey Bautista RN) 08 (Given - Provider: Anu Morris RN)152 ([facility] Hold - Provider: Admin Adt - Reason: Transfer to a Procedural area)1850 ([facility] Unhold - Provider: Admin Adt)2045 (Given - Provider: Harvey Bautista RN) 0921 (Given - Provider: Steven bar RN) 500 mg, Oral, 2 TIMES DAILY, First dose on Tue10/09/21 at 2100, Until Discontinued, Routine levothyroxine (Synthroid) tablet 100 mcg 0545 (Given - Provider: Harvey Bautista RN) 0520 (Given - Provider: Harvey Bautista RN)152 ([employer] [facility] Hold - Provider: Admin Adt - Reason: Transfer to a Procedural area)1850 ([facility] Unhold - Provider: Admin Adt) 0549 (Given - Provider: Harvey Bautista RN) 100 mcg, Oral, EVERY MORNING, First dose (after last modification) on Tue10/11/21 at 0600, Until Discontinued, Routine pantoprazole EC (Protonix) tablet 20 mg 0842 (Given - Provider: Anu Morris RN) 0822 (Given - Provider: Anu Morris RN)152 ([facility] Hold - Provider: Admin Adt - Reason: Transfer to a Procedural area)185 (MAR Unhold - Provider: Admin Adt) 0922 (Given - Provider: Steven bar RN) 20 mg, Oral, DAILY, First dose on 03/31 at 1845, Until Discontinued, DO NOT CRUSH OR OPEN, Routine polyethylene glycoL (Miralax) packet 17 g 0841 (Given - Provider: Anu Morris RN) 0900 (Not Given - Provider: Anu Morrsi RN - Reason: Order parameters not met)1523 (MAR Hold - Provider: Admin Adt - Reason: Transfer to a Procedural area)185 (APR Unhold - Provider: Admin Adt) 0921 (Given - Provider: Steven Serrato RN) 17 g, Oral, DAILY, First dose on 10/12 at 0900, Until Discontinued, Routine sodium chloride tablet 1 g 1856 (Given - Provider: Anu Morris RN)204 (Given - Provider: Harvey Bautista RN) 0922 (Given - Provider: Steven Serrato RN) 1 g, Oral, 3 TIMES DAILY, First dose on Tue10/13/21 at 1730, Until Discontinued, STAT Continuous Medication Order 10/12/2021 10/13/2021 10/14/2021 sodium chloride 0.9% infusion (CANCELED) 2355 (New Bag - Provider: Harvey Bautista RN) 0000 (Rate/Dose Verify - Provider: Harvey Bautista RN)0200 (Rate/Dose Verify - Provider: Harvey Bautista RN)0300 (Rate/Dose Verify - Provider: Harvey Bautista RN)0400 (Rate/Dose Verify - Provider: Harvey Bautista RN) 100 mL/hr, Intravenous, CONTINUOUS, Star ting on Tue10/13/21 at 0000, Until Tue10/13/21 at 1852 0500 (Rate/Dose Verify - Pro vider: Harvey Bautista RN)0600 (Rate/Dose Verify - Provider: Harvey Bautista RN)0648 (Rate/Dose Verify - Provider: Harvey Bautista RN)0821 (New Bag - Provider: Anu Morris RN) 1523 (MAR Hold - Pro vider: Admin Adt - Reason: Transfer to a Procedural area)1850 ([facility] Unhold - Provider: Admin Adt)1851 (Stopped - Provider: Anu Reyes V RN) PRN Medication Order 10/12/2021 10/13/2021 10/14/2021 acetaminophen (Tylenol) tablet 650 mg 10 51 (Given - Provider: Anu Reyes V RN)152 ([employer] [facility] Hold - Provider: Admin Adt - Reason: Transfer to a Procedural area)180 (MAR Unhold - Provider: Amber Fleming, RN)1808 (Given - Provider: Amber Fleming, RN) 1243 (Given - Provider: Steven bar RN) 650 mg, Oral, EVERY 6 HOURS PRN, Startin g on Tue10/09/21 at 1759, Until Tue10/14/21 at 1507, Pain, Fever, Administer for temperature greater than or equal to 38.2 degrees celsius, or for MILD (1-3) pain M aximum dose of acetaminophen is 4000 mg from all sources in 24 hours. When ordered for pain, acetaminophen should be given even when other ordered pain medications are indicated., Routine BUpivacaine-EPINEPHrine (Marcaine-epiNEP Hrine) 0.25 %-1:200,000 injection (CANCELED) 161 (Given - Provider: Kody Singh MD) ONCE PRN, Starting on Tue10/13/21 at 1614 , Until Tue10/14/21 at 1507, Intra- Operative (Intra-Procedure), Routine gelatin adsorbable (Gelfoam) sponge (CANCELED) 161 (Given - Provider: Kody Singh MD - Comment: used PRN with thrombin) ONCE PRN, Starting on Tue10/13/21 at 1615 , Until Tue10/14/21 at 1507, Intra- Operative (Intra-Procedure) potassium chloride 10 mEq in sterile water 100 mL infusion(L inked Group 1) 152 ([facility] Hold - Provider: Admin Adt - Reason: Transfer to a Procedural area)1850 ([employer] [facility] Unhold - Provider: Admin Adt) 10 mEq, Intravenous, EVERY 1 HOUR PRN, S tarting on Tue10/10/21 at 0254, Until Tue10/14/21 at 1507, Administer over 60 Minutes, hypokalemia, Administer 2 times 10 meq/100 mL bags, each over 30-60 minutes f or serum potassium (mMol/L) of 3.9 - 4 S ee instructions for Potassium Protocol in online policies. potassium chloride 10 mEq in sterile water 100 mL infusion(L inked Group 1) 1522 ([employer] [facility] Hold - Provider: Admin Adt - Reason: Transfer to a Procedural area)1850 ([employer] [facility] Unhold - Provider: Admin Adt) 10 mEq, Intravenous, EVERY 1 HOUR PRN, S tarting on 10/10/21 at 0254, Until Tue10/14/21 at 1507, Administer over 60 Minutes, hypokalemia, Administer 4 times 10 meq/100 mL bags, each over 30-60 minutes f or serum potassium (mMol/L) of 3.3 - 3.8 See instructions for Potassium Protocol in online policies. potassium chloride 10 mEq in sterile water 100 mL infusion(L inked Group 1) 1522 ([facility] Hold - Provider: Admin Adt - Reason: Transfer to a Procedural area)1850 ([employer] [facility] Unhold - Provider: Admin Adt) 10 mEq, Intravenous, EVERY 1 HOUR PRN, S tarting on 10/10/21 at 0254, Until Tue10/14/21 at 1507, Administer over 60 Minutes, hypokalemia, Administer Administer 6 times 10 meq/100 mL bags, each over 30-6 0 minutes for serum potassium (mMol/L) o f 2.8 - 3.2 See instructions for Potassium Protocol in online policies. thrombin (bovine) (Thrombin-Jmi) solution (CANCELED) 161 (Given - Provider: Kody Singh MD - Comment: used PRN with gelfoam) ONCE PRN, Starting on Tue10/13/21 at 1615 , Until Tue10/14/21 at 1507, Intra- Operative (Intra-Procedure) Linked Groups Order Group 1: potassium chloride 10 mEq in sterile water 100 mL infusionJump to med 10 mEq, Intravenous, EVERY 1 HOUR PRN, S tarting on 10/10/21 at 0254, Until Tue10/14/21 at 1507, Administer over 60 Minutes, hypokalemia
Administer 2 times 10 meq/100 mL bags, each over 30-60 m inutes for serum potassium (mMol/L) of 3 .9 - 4 See instructions for Potassium Protocol in online policies.
Or potassium chloride 10 mEq in sterile water 100 mL infusionJump to med 10 mEq, Intravenous, EVERY 1 HOUR PRN, S tarting on 10/10/21 at 0254, Until Tue10/14/21 at 1507, Administer over 60 Minutes, hypokalemia
Administer 4 times 10 meq/100 mL bags, each over 30-60 m inutes for serum potassium (mMol/L) of 3 .3 - 3.8 See instructions for Potassium Protocol in online policies.
Or potassium chloride 10 mEq in sterile water 100 mL infusionJump to med 10 mEq, Intravenous, EVERY 1 HOUR PRN, S tarting on 10/10/21 at 0254, Until 10/14/21 at 1507, Administer over 60 Minutes, hypokalemia
Administer Administer 6 times 10 meq/100 mL bags, each o javier 30-60 minutes for serum potassium (m Mol/L) of 2.8 - 3.2 See instructions for Potassium Protocol in online policies.
documented in this encounter Care Teams Strip Cleaner Relationship Specialty Start Date End Date Viki lEaine PA PCP - General Internal Medicine 12/04/[address] [place] [address] [place] [address] documented as of this encounter
--- OUTSIDE RECORDS SUMMARY | 2021-12-04 13:55 | XMS_ITS | Encounter Summary ---
:1955 Author Organization [place] [address] Care Team Providers Name Role Phone Viki Elaine Primary Care Provider [phone] Encounter Details Date Type Department Care Team Description 10/09/2021 Telephone [place] [facility] [place]eda Baltazar [place] [facility] [phone] NEUROSURGERY [phone] [place], [place] [address] (Wo rk) Social History Tobacco [...] place to sleep or slept in a custodial (including now)? Sex Assigned at Date Recorded Not on file documented as of this encounter Miscellaneous Notes Telephone Encounter - Rasheeda Baltazar MD - 10/09/2021 1:00 PM EDT ENCOUNTER MADE IN ERROR. Please delete. documented in this encounter Plan of Treatment [...] Oncology [facility] HEMATOLOGY ONCOL [place], [place] [address] (Wo rk) 12/16/2021 Scheduled View Only Radiation Oncology 12/17/2021 Scheduled View Only Radiation Oncology 12/18/2021 Scheduled View Only Radiation Oncology 12/18/2021 Infusion Hematology and Oncology 12/21/2021 Scheduled View Only Radiation Oncology 12/22/2021 Scheduled View Only Radiation Oncology documented as of this encounter Visit Diagnoses Not on filedocumented in this encounter Care Teams Rib Chopper Relationship Specialty Start Date End Date Viki Elaine PA PCP - General Internal Medicine 12/04/[address] [place] [address] [place] [address] documented as of this encounter
--- OUTSIDE RECORDS SUMMARY | 2021-12-04 13:55 | XMS_ITS | Encounter Summary ---
:1955 Author Organization [facility] [place] [address] Care Team Providers Name Role Phone Viki Elaine Primary Care Provider [phone] Reason for Referral Consultation (Emergency) - Closed Specialty Diagnoses / Procedures Referred By Contact Refer red To Contact Neurosurgery Diagnoses Malignant neoplasm of brain, unspecified location Viki Elaine, [facility] 3[facility] PA [address] [place] [address] [place] [address] Referral ID Status Reason Start Date Expiration Date Visits V isits Requested Authorized [id number] Closed Consult, 09/24/2021 09/24/2022 1 1 Test & Treat Encounter Details Date Type Department Care Team Description 09/24/2021 Transcribe Orders eDH Incoming Chele Malignant neoplasm Referrals INEZ Moreno of brain, [facility] MEDICAL unspecified [address] location [place], [place] [address] Social History Tobacco Use Types Packs/Day Years [...] place to sleep or slept in a residential (including now)? Sex Assigned at Date Recorded [...] Visit (TeleHealth) Hematology and BaumannMarija MD Oncology [facility] HEMATOLOGY ONCOL [place], [place] [address] (Wo rk) 12/16/2021 Scheduled View Only Radiation Oncology 12/17/2021 Scheduled View Only Radiation Oncology 12/18/2021 Scheduled View Only Radiation Oncology 12/18/2021 Infusion Hematology and Oncology 12/21/2021 Scheduled View Only Radiation Oncology 12/22/2021 Scheduled View Only Radiation Oncology Scheduled Referrals Name Type Priority Associated Diagnoses Order S chedule Referral to Outpatient Referral Routine Malignant neoplasm Or dered: Neurosurgery of brain, 09/24/2021 unspecified location documented as of this encounter Visit Diagnoses Diagnosis Malignant neoplasm of brain, unspecified location documented in this encounter Care Teams Beam Machine Operator Relationship Specialty Start Date End Date Viki Elaine PA PCP - General Internal Medicine 12/04/[address] [place] [address] [place] [address] documented as of this encounter
--- OUTSIDE RECORDS SUMMARY | 2021-12-04 13:55 | XMS_ITS | Encounter Summary ---
:1955 Author Organization [facility] [place] [address] Care Team Providers Name Role Phone Viki Elaine Primary Care Provider [phone] Encounter Details Date Type Department Care Team Description 09/23/2021 Ancillary Procedure Radiology Library at Corrina Elaine [facility] INEZ Abraham [address] [place] [address] [place] [address] [phone] (Wo rk) Social History Tobacco Use Types [...] and Marija Baumann MD Oncology [facility] HEMATOLOGY ONCOL [place], [place] [address] (Wo rk) 12/16/2021 Scheduled View Only Radiation Oncology 12/17/2021 Scheduled View Only Radiation Oncology 12/18/2021 Scheduled View Only Radiation Oncology 12/18/2021 Infusion Hematology and Oncology 12/21/2021 Scheduled View Only Radiation Oncology 12/22/2021 Scheduled View Only Radiation Oncology documented as of this encounter Procedures Procedure Name Priority Date/Time Associated Diagnosis Comme nts FILM LIBRARY Routine 09/23/2021 12:00 AM Results for this STORAGE ONLY CT EDT procedure ar e in HEAD the results section. documented in this encounter Results Film Library- Storage Only CT Head (09/23/2021 12:00 AM EDT) Specimen (Source) Anatomical Location Collection Method / Collectio n Time Received Time / Laterality Volume Narrative DH RAD - 09/24/2021 8:55 AM EDT This exam is auto-finalizing. It's purpo se is for storage only. Viki WILEY IMTyshawn FILM LIBRARY ORDERABLES Performing Organization Address City/State/ZIP Code Phon e Number RAD [place], [place] documented in this encounter Visit Diagnoses Not on filedocumented in this encounter Care Teams Beer Merchant Relationship Specialty Start Date End Date Viki Elaine PA PCP - General Internal Medicine 12/04/[address] [place] [address] [place] [address] documented as of this encounter
--- OUTSIDE RECORDS SUMMARY | 2021-12-04 13:55 | XMS_ITS | Encounter Summary ---
:1955 Author Organization [facility] [place] [address] Care Team Providers Name Role Phone Viki Elaine Primary Care Provider [phone] Encounter Details Date Type Department Care Team Description 10/09/2021 Telephone Neurosurgery at [facility] Rasheeda Baltazar [place] [facility] [place] [address] NEUROSURGERY [phone] [place], [place] [address] (Wo rk) Social History Tobacco [...] place to sleep or slept in a group home (including now)? Sex Assigned at Date Recorded Not on file documented as of this encounter Miscellaneous Notes Telephone Encounter - Rasheeda Baltazar MD - 10/09/2021 12:45 PM EDT I just got off the phone with Ankur Kee MD of [facility] re:Lorin Cardona who is a 66 y.o. female not on antiplatelets/anticoagulants with PMH of migraines, thyroid carcinoma, hypothyroidism (on levothyroxine) who presents to OSH with sxs of increasing nausea/vomiting, confusion, disorientation, and headaches x last few days and CTH re-demonstrates known brain mass (from 09/24 CTH) in splenium but with increased edema, ventricular dilatation, and hyperdensityin left aspect of the mass c/f hemorrhage for which NSGY is called. (Of note, we were contacted at which point an urgent MRI Brain was recommended for us to evaluate for biopsy vs resection) Per report from the OSH provider, patient's symptoms have been ongoing for last few days and she vomited several times. On his exam, she is disoriented to time but non-focal otherwise with intact cranial nerve and sensorimotor exam. Her speech is fluent and appropriate. She is hemodynamically stable and labs are only remarkable for Na 133. He has given her Zofran as well as 10mg dexamethasone and 1g Keppra. Patient is becoming increasing symptomatic from her brain mass and with increased size of ventriclesshe warrants hydrocephalus watch. Advised patient be transferred here to [facility] for higher level of care and expeditious management of her brain tumor. Rasheeda Baltazar MD 10/09/2021 12:58 PM documented in this encounter Plan of Treatment [...] (TeleHealth) Hematology and Marija Baumann MD Oncology [facility] DR HEMATOLOGY ONCOL [place], [place] [address] (Wo rk) 12/16/2021 Scheduled View Only Radiation Oncology 12/17/2021 Scheduled View Only Radiation Oncology 12/18/2021 Scheduled View Only Radiation Oncology 12/18/2021 Infusion Hematology and Oncology 12/21/2021 Scheduled View Only Radiation Oncology 12/22/2021 Scheduled View Only Radiation Oncology documented as of this encounter Visit Diagnoses Not on filedocumented in this encounter Care Teams Job Analysis Manager Relationship Specialty Start Date End Date Viki Elaine PA PCP - General Internal Medicine 12/04/[address] [place] [address] [place] [address] documented as of this encounter
--- OUTSIDE RECORDS SUMMARY | 2021-12-04 13:55 | XMS_ITS | Encounter Summary ---
:1955 Author Organization [place] [address] Care Team Providers Name Role Phone Viki Elaine Primary Care Provider [phone] Reason for Visit Consultation (Routine) - Closed Specialty Diagnoses / Procedures Referred By Contact Refer red To Contact Endocrinology Diagnoses Primary thyroid cancer Fabienne De Dios, [facility] MD [facility] [place] [address] [place] [address] Referral ID Status Reason Start Date Expiration Date Visits V isits Requested Authorized [id number] Closed Consult, 02/19/2021 02/19/2022 1 1 Test & Treat Encounter Details Date Type Department Care Team Description 08/14/2021 Office Visit Endocrinology at [facility] Maged Haynes Vitamin D deficiency; [facility] MD Idnaia History of thyroid cancer; [facility] [place], [place] [address] Center [phone] [place], [place] [address] Social History Tobacco Use Types Packs/Day Years [...] Sign Reading Time Taken Comments Blood Pressure 129/65 08/14/2021 10:04 AM EDT Pulse 68 08/14/2021 10:04 AM EDT Temperature 36.3 ??C (97.4 ??F) 08/14/2021 10:04 AM EDT Respiratory Rate - - Oxygen Saturation 100% 08/14/2021 10:04 AM EDT Inhaled Oxygen Concentration - - Weight 73.5 kg (162 lb) 08/14/2021 10:04 AM EDT Height 161.3 cm (5' 3.5) 08/14/2021 10:04 AM EDT Body Mass Index 28.25 08/14/2021 10:04 AM EDT documented in this encounter Progress Notes Maged Jimenez MD - 08/14/2021 10:45 AM EDT Images from the original note were not included. Ms. Lorin Cardona is an 66 y.o. female who presents in consultation for chief complaint of thyroid cancer Referred by: Fabienne De Dios MD Thyroid cancer history: FNA of the TR 5 nodule right thyroid lobe: suspicious for PTC (Hardwick 5)??. ??suspicious left lateral level IV node: FNA +malignancy by Tg washout and cytology 12/04/20 CT neck: Diffusely heterogeneous thyroid with multiple abnormal lymph nodes, largest on the left side. Findings are consistent with regional prashant metastatic disease. CT chest: No thoracicmetastatic disease identified. 01/07/21 thyroidectomy (Dr De Dios) and central/left neck dissection: multifocal PTC, largest focus left lobe 3.9 cm. +focal angioinvasion (<4 vessels), +lymphatic invasion. 10/30 LN + (levels andpossibly IV) largest focus 1.5 cm. Notably 3 parathyroid glands were removed at time of surgery -04/17/21 80 mCi I-131: post therapy scan no metastases HPI: Patient presents with her and confirms the history above. She has several concerns to discuss today. She has had unexpected weight loss over the past few months. She feels excessively sleepy and has fogginess with regularity. She has had more regular migraines. She denies any palpitations or tremors. She denies excessive numbness/tingling. Levothyroxine: taking 125 mcg daily Calcium: carbonate 500mg once daily, citrate 400 mg. Both contain Vit D3 Notably 2018 DXA scan at [facility] showed osteopenia: left femoral neck T score -1.2 was lowest T score Family history: notably she has 5 other siblings with thyroid cancer. Two brothers and her father had prostate cancer. Sister had uterine cancer. Another brother had bladder cancer. She does not believe that there has ever been genetic testing of any siblings for inherited gene mutation.She notably lived [place] a [facility] and has suspicion that exposure to toxins predisposed her family to these cancers. She has one son and no grandchildren Past Medical History: Diagnosis Date ??? GERD (gastroesophageal reflux disease) ??? Kidney stones ??? Osteopenia Past Surgical History: Procedure Laterality Date ??? PRG EMG, LARYNX N/A 01/07/2021 FACIAL NERVE MONITORING, SETUP LARYNGEAL (WRVU 1.57) performed by Fabienne De Dios MD at [facility] MAIN OR ??? PRO REMOVAL NODES, NECK, CERV MOD RAD Left 01/07/2021 @CERVICAL LYMPHADENECTOMY (MODIFIED RADICAL NECK DISSECTION) (WRVU 23.95) performed by Fabienne De Dios MD at [facility] MAIN OR ??? PRO THYROIDECTOMY, MALIG, LTD NECK SURG Bilateral 01/07/2021 THYROIDECTOMY, FOR MALIGNANCY, LIMITED NECK DISSECTION (WRVU 22.01) performed by Tony De Dios MD at [facility] MAIN OR Social History Socioeconomic History ??? Marital status: [...] Unstable Housing in the Last Year: No Review of Systems: As described above, otherwise it is negative Current Outpatient Medications: ??? calcium citrate (Calcitrate) 200 mg (950 mg) Tablet, Take 1 tablet by mouth daily., Disp: , Rfl: ??? calcium citrate (Calcitrate) 200 mg (950 mg) Tablet, Take 1 tablet by mouth daily. Taking 400mg daily, Disp: , Rfl: ??? levothyroxine (Synthroid) 125 mcg Tablet, Take 1 tablet by mouth daily., Disp: 90 tablet, Rfl: 3 ??? acetaminophen (Tylenol) 500 mg Tablet, Take 2 tablets by mouth as needed for Pain. (Patient not taking: No sig reported), Disp: , Rfl: ??? Ibuprofen 200 mg Capsule, Take 1 capsule by mouth as needed. (Patient not taking: Reported on 06/04/2021), Disp: , Rfl: ??? calcium carbonate (Tums) 200 mg calcium (500 mg) Tablet, Chewable, Take 2 tablets by mouth 3 times daily (after meals). (Patient taking differently: Take 500 mg by mouth daily.), Disp: , Rfl: ??? diphenhydramine HCl (BENADRYL ALLERGY ORAL), Take by mouth., Disp: , Rfl: ??? docosahexaenoic acid/epa (FISH OIL ORAL), Take by mouth daily. Taking 1000mg every other day, Disp: , Rfl: ??? multivitamin Capsule, Take 1 capsule by mouth every other day., Disp: , Rfl: ??? omeprazole (PriLOSEC) 20 mg Capsule, Delayed Release(E.C.), Take 20 mg by mouth daily., Disp: , Rfl: ??? ascorbic acid, Vitamin C, (Vitamin C) 500 mg Tablet, Take 500 mg by mouth daily., Disp: , Rfl: No Known Allergies Physical Exam: Patient Vitals for the past 24 hrs: Temp Pulse BP SpO2 08/14/21 1004 36.3 ??C (97.4 ??F) 68 129/65 100 % General: no acute distress, pleasant, sitting comfortably Face: not round or red, absent chovstek sign Eyes: no lid lag; normal eye movements Nose/mouth: Wearing mask Neck: no supraclavicular fat pads; no palpable masses Lymphatic: no palpable cervical lymph nodes Respiratory: symmetrical chest expansion, breathing comfortably on room air without audible wheeze or stridor Cardiovascular: no JVD, no LE edema Musculoskeletal: moving all 4 extremities normally. normal female musculature Skin: normal temperature/texture, no jaundice or pallor, well healed neck surgical scars Neurological: no tremors, normal gait Psychological: alert/oriented to person, place, time; normal affect; memory intact; normal judgement/insight Radiology Studies: Laboratory Data: 01/07/21 Thyroidectomy SYNOPTIC Specimen ?Procedure: ??Total thyroidectomy Tumor ?Tumor Focality: ??Multifocal ?Tumor Characteristics ? Tumor Identifier: ??1 ? Tumor Site: ??Left lobe ? Tumor Size: ??3.9 Centimeters (cm) ? Histologic Type: ??Papillary carcinoma, classic (usual, conventional) ? Angioinvasion (vascular invasion): ??Focal (less than 4 vessels) ? Lymphatic Invasion: ??Present ? Perineural Invasion: ??Not identified ? Extrathyroidal Extension: ??Not identified ? Margin Status: ??All margins negative for carcinoma ?Distance from Invasive Carcinoma to Closest Margin: ??Less than 1 mm ?Tumor Characteristics ? Tumor Identifier: ??2 ? Tumor Site: ??Right lobe ? Tumor Size: ??2.7 Centimeters (cm) ? Histologic Type: ??Papillary carcinoma, classic (usual, conventional) ? Angioinvasion (vascular invasion): ??Not identified ? Lymphatic Invasion: ??Present ? Perineural Invasion: ??Not identified ? Extrathyroidal Extension: ??Not identified ? Margin Status: ??All margins negative for carcinoma ?Distance from Invasive Carcinoma to Closest Margin: ??Less than 1 mm ?Tumor Characteristics ? Tumor Identifier: ??3 ? Tumor Site: ??Isthmus ? Tumor Size: ??0.5 Centimeters (cm) ? Histologic Type: ??Papillary carcinoma, classic (usual, conventional) ? Angioinvasion (vascular invasion): ??Not identified ? Lymphatic Invasion: ??Not identified ? Perineural Invasion: ??Not identified ? Extrathyroidal Extension: ??Not identified ? Margin Status: ??All margins negative for carcinoma ?Distance from Invasive Carcinoma to Closest Margin: ??Less than 1 mm Regional Lymph Nodes ?Regional Lymph Node Status: ??Tumor present in regional lymph node(s) ? Number of Lymph Nodes with Tumor: ??9 ? Prashant Level(s) Involved: ??Level ; ??Left lateral (mid- portion of specimen ?D, blocks D2 and D3; may represent level IV per prior FNA specimen (10- ? [id number])) ? Size of Largest Metastatic Deposit: ??1.5 cm ? Extranodal Extension (BLADIMIR): ??Not identified ?Number of Lymph Nodes Examined: ??23 ? Prashant Level(s) Examined: ??Level ; ??Left lateral Pathologic Stage Classification (pTNM, AJCC 8th Edition) ?TNM Descriptors: ??m (multiple primary tumors) ?pT Category: ??pT2 ?pN Category: ??pN1b Additional Findings ?Additional Findings: ??Parathyroid gland(s) present ? Number of Parathyroid Glands: ??3 ? Location of Parathyroid Gland(s): ??Left inferior; ??Right central neck; ?Left central neck ? Parathyroid Gland Findings: ??Within normal limits Component Thyroglob Ab TSH Latest Ref Rng & Units 0.0 - 40.0 IU/mL 0.27 - 4.20 mcIU/mL 06/04/2021 <20.0 0.04 (L) 04/16/2021 20.9 >100.00 (H) 03/10/2021 53.6 (H) 02/20/2021 48.0 (H) 0.47 Component Thyroglobulin by LC-MS/MS Latest Ref Rng & Units 06/04/2021 04/16/2021 03/10/2021 See Scan Report 02/20/2021 Assessment / Plan: 1) history of papillary thyroid cancer BILLY intermediate risk Status post thyroidectomy, Left neck LN dissection and I-131 ablation Excellent response to therapy given undetectable Tg and no concerning findings on US We did discuss the option of genetics counseling referral to screen for inherited cancer syndrome. She wishes to talk more to her family and did not want to proceed right now Given history of three parathyroid glands removed and nonspecific cognitive symptoms, I recommended assessing Ca, PTH and Vitamin D levels 2) postoperative hypothyroidism: TSH goal 0.1-0.5 per BILLY guidelines for 1 year after thyroid cancer therapies She is below this level so reduce levothyroxine to 112 mcg daily and recheck TSH locally in about 6 weeks A note will be sent to the referring provider Return to clinic in April/May 2022 Orders Placed This Encounter Procedures ??? Vitamin D, 25-Hydroxy ??? TSH ??? Calcium ??? Thyroglobulin ??? Thyroglobulin Antibody ??? Albumin Level ??? PTH It was a pleasure to be involved in the care of Lorin Cardona. If you have any questions about the management and treatment plan as outlined above, or if I can be of further assistance, please do not hesitate to contact me. Sincerely, Maged Jimenez MD Health Information Managermaterials coordinator Endocrinology Section [facility] Maged Jimenez MD - 08/14/2021 10:45 AM EDT ENDOCRINOLOGY THYROID ULTRASOUND REPORT Patient:Lorin Cardona, [id number] Date of exam: 08/14/2021 Indication: history of thyroid cancer Comparison: 12/04/20 thyroid US (Dr De Dios) Performed by: Maged Jimenez MD Real time images of the thyroid gland were obtained using a BK US machine. All measurements are given as Longitudinal/Sagittal x AP x Transverse. Right Neck: Thyroid is surgically absent No abnormal lymph nodes Left Neck: Thyroid is surgically absent No abnormal lymph nodes Impression: No evidence of thyroid cancer recurrence documented in this encounter Plan of Treatment [...] Visit (TeleHealth) Hematology and BaumannMarija MD Oncology [facility] HEMATOLOGY ONCOL [place], [place] [address] (Wo rk) 12/16/2021 Scheduled View Only Radiation Oncology 12/17/2021 Scheduled View Only Radiation Oncology 12/18/2021 Scheduled View Only Radiation Oncology 12/18/2021 Infusion Hematology and Oncology 12/21/2021 Scheduled View Only Radiation Oncology 12/22/2021 Scheduled View Only Radiation Oncology Scheduled Orders Name Type Priority Associated Diagnoses Order S chedule Vitamin D, 25-Hydroxy Lab Routine Vitamin D deficienc y Expected: 09/26/2021 (Approximate), Expires: 2022 TSH Lab Routine Hypothyroidism, Expected: unspecified type (Approximat e), Expires: 2022 Calcium Lab Routine History of thyroid cancer Ex pected: 09/26/2021 (Approximate), Expires: 2022 Thyroglobulin Lab Routine History of thyroid cancer E xpected: 09/26/2021 (Approximate), Expires: 2022 Thyroglobulin Antibody Lab Routine History of thyroid cancer Expected: 09/26/2021 (Approximate), Expires: 2022 Albumin Level Lab Routine History of thyroid cancer E xpected: 09/26/2021 (Approximate), Expires: 2022 PTH Lab Routine History of thyroid cancer Ex pected: 09/26/2021 (Approximate), Expires: 2022 documented as of this encounter Visit Diagnoses Diagnosis Vitamin D deficiency Unspecified vitamin D deficiency History of thyroid cancer Personal history of malignant neoplasm o f thyroid Hypothyroidism, unspecified type documented in this encounter Care Teams Sprue Knocker Relationship Specialty Start Date End Date Viki Elaine PA PCP - General Internal Medicine 12/04/[address] [place] [address] [place] [address] documented as of this encounter
--- OUTSIDE RECORDS SUMMARY | 2021-12-04 13:55 | XMS_ITS | Encounter Summary ---
:1955 Author Organization [facility] Address [place] [id number] Care Team Providers Name Role Phone Viki Elaine Primary Care Provider [phone] Reason for Visit Diagnostic Test (Emergency) - Authorized Specialty Diagnoses / Procedures Referred By Contact Refer red To Contact Radiology Diagnoses Malignant neoplasm of brain, unspecified location Viki Elaine PA [facility] Rad Mri Procedures MRI Brain wwo Contrast (Generic) [address] [place] [address] [place] [address] Phone: Referral ID Status Reason Start Expiration Visits Visits Date Date Requested Authorized [id number] Authorized Specialty 09/25/2021 03/28/2023 1 1 Service Requested Encounter Details Date Type Department Care Team Description 10/13/2021 Hospital Encounter MRI at [facility] [place], Canceled (P-PATIENT [facility] INEZ Moreno ADMITTED/DELIVERED) Drive [address] [place] [id number] [place] [address] Social History Tobacco Use Types Packs/Day Years [...] on file documented as of this encounter Medications at Time of Discharge [...] Take 1 capsule by 20 capsule 0 09/08/202110/24/2021 100 mg Capsule mouth 2 times daily for 10 days. sodium chloride 1 gram Take 1 tablet by 14 tablet 0 022 10/28/2021 Tablet mouth daily for 14 days. levETIRAcetam (Keppra) 500 Take 1 tablet by 60 tablet 1 08/202112/03/2021 mg Tablet mouth 2 times daily. dexAMETHasone (Decadron) 4 Take 1 tablet by 80 tablet 0 08/202112/03/2021 mg Tablet mouth every 6 hours. Ibuprofen 200 mg Capsule Take 1 capsule by 0 03/202010/14/2021 mouth as needed. omeprazole (PriLOSEC) 20 Take 20 mg by 0 10/14/2021 mg Capsule, Delayed mouth as needed. Release(E.C.) documented as of this encounter Plan of [...] (TeleHealth) Hematology and Marija Baumann MD Oncology [facility] HEMATOLOGY ONCOL [place], [place] [address] (Wo rk) 12/16/2021 Scheduled View Only Radiation Oncology 12/17/2021 Scheduled View Only Radiation Oncology 12/18/2021 Scheduled View Only Radiation Oncology 12/18/2021 Infusion Hematology and Oncology 12/21/2021 Scheduled View Only Radiation Oncology 12/22/2021 Scheduled View Only Radiation Oncology documented as of this encounter Visit Diagnoses Not on filedocumented in this encounter Care Teams Bench Assembler Operator Relationship Specialty Start Date End Date YaViki melvin PA PCP - General Internal Medicine 12/04/[address] [place] [address] [place] [address] documented as of this encounter
--- OUTSIDE RECORDS SUMMARY | 2021-12-04 13:55 | XMS_ITS | Encounter Summary ---
:1955 Author Organization [place] [address] Care Team Providers Name Role Phone Viki Elaine Primary Care Provider [phone] Encounter Details Date Type Department Care Team Description 09/14/2021 Telephone Endocrinology at [facility] Alireza Botello, [place] [phone] Social History Tobacco Use Types Packs/Day [...] place to sleep or slept in a alf (including now)? Sex Assigned at Date Recorded Not on file documented as of this encounter Miscellaneous Notes Telephone Encounter - Alireza Mckenzie RN - 09/15/2021 11:59 AM EDT Note from Dr Jimenez and lab orders in the outgoing mail to patient's address on file. Telephone Encounter - Baltazar Katz RN - 09/15/2021 9:06 AM EDT Called pt back to give her the message from Dr. Jimenez. Pt was having difficulty understanding thesimple message from And got her on the line. She is just concerned that she will have wait 6 weeks to see what her labs show while she is still feeling the way she feels. Pt and asked me to send the note from Dr. Jimenez in writing along with the lab orders as they [place] [address] Message from Dr. Jimenez: I reviewed her 09/07 labs. The TSH is still lower than optimal despite her recent levothyroxine dose decrease to 112 mcg daily. The dose decrease may help with some of her symptoms. I do not think the symptoms are related to I-131 ablation, but if they are concerned about that they could contact Dr Miguel's office. I sent in a lower dose prescription for 100mcg daily to her pharmacy, [facility]. 6 weeks after the dose change she should have her blood drawn 6 weeks after the dose change for TSH, thyroglobulin and thyroglobulin antibody and sent slips to [facility] Telephone Encounter - Maged Jimenez MD - 09/14/2021 4:36 PM EDT Baltazar I reviewed her 09/07 labs. The TSH is still lower than optimal despite her recent levothyroxine dose decrease to 112 mcg daily. The dose decrease may help with some of her symptoms. I do not think the symptoms are related to I-131 ablation, but if they are concerned about that they could contact Dr Miguel's office I sent in a lower dose prescription for 100mcg daily to her pharmacy, [facility]. 6 weeks after the dosechange she should have her blood drawn 6 weeks after the dose change for TSH, thyroglobulin and thyroglobulin antibody and sent slips to [facility] I placed these orders, please let her know. thanks Telephone Encounter - Baltazar Katz RN - 09/14/2021 4:00 PM EDT Called pt back. Pt states she feels she is losing her memory and having a hard time focus on anything that takes more than 2 steps. On 09/07 she had lab done and wonder if results are showing anything. She says she is usually very energetic and well organized but since June she feels exhausted all the time and having a hard time following through tasks. She had to read a note that her sister who was visiting wrote so she could read to us about how bad she has been with things. In the note her sister stated that her short term memory is so bad that she asks the same questions 5-6 times a day. She can'tfollow through things. She gets overwhelmed with tasks and can't focus. If she has to do things witha couple of steps, she keeps going back to initial steps because she often forgets what she is supposed to do. She makes lists all the time but then can't figure it out what needs to be done first on her lists. She seems very confused at times. She mixes up the days, repeats questions over and over. Lorin said she had hadadioactive iodine in April and doesn't know if maybe that can be playing a role in this. She is always exhausted, has no appetite (lost probably 10lb), feels nauseous when she triesto eat, and has indigestions (taking Prilosec). Her sister also noted that she is feeling cold even in hot weather. She also made an appt with her PCP but would like to hear from our clinic as well. I told her I will pass the message to Dr. Jimenez. Telephone Encounter - Alireza Mckenzie RN - 09/14/2021 1:38 PM EDT Patient's sister, Hawa, called as well asking that we call and she is hoping that we can call while she is there so her sister can give permission for her to speak to us. She felt this was urgent and didn't think the message Lorin left us accurately described the issue. She feels she would be better at giving us the accurate information and hopes we can call Lorin back. She did not provide timing forwhen she would be present with her sister to speak to us. Telephone Encounter - Alireza Mckenzie RN - 09/14/2021 9:53 AM EDT Patient left voicemail that she is having memory issues still. She says she thinks her medication might be off. She says she had labs drawn and she would like a return call about all of this. documented in this encounter Plan of Treatment [...] Oncology [facility] HEMATOLOGY [place], [place] [address] (Wo rk) 12/16/2021 Scheduled View Only Radiation Oncology 12/17/2021 Scheduled View Only Radiation Oncology 12/18/2021 Scheduled View Only Radiation Oncology 12/18/2021 Infusion Hematology and Oncology 12/21/2021 Scheduled View Only Radiation Oncology 12/22/2021 Scheduled View Only Radiation Oncology Scheduled Orders Name Type Priority Associated Diagnoses Order S chedule TSH Lab Routine Hypothyroidism, Expected: unspecified type (Approximat e), Expires: 2022 Thyroglobulin Lab Routine History of thyroid cancer E xpected: 10/27/2021 (Approximate), Expires: 2022 Thyroglobulin Antibody Lab Routine History of thyroid cancer Expected: 10/27/2021 (Approximate), Expires: 2022 documented as of this encounter Visit Diagnoses Diagnosis History of thyroid cancer Personal history of malignant neoplasm o f thyroid Hypothyroidism, unspecified type documented in this encounter Care Teams Junior Automation Engineer Relationship Specialty Start Date End Date Viki Elaine PA PCP - General Internal Medicine 12/04/[address] [place] [address] [place] [address] documented as of this encounter
--- OUTSIDE RECORDS SUMMARY | 2021-12-04 13:55 | XMS_ITS | Encounter Summary ---
:1955 Author Organization [facility] [place] [address] Care Team Providers Name Role Phone Viki Elaine Primary Care Provider [phone] Encounter Details Date Type Department Care Team Description 06/04/2021 Hospital Encounter Hematology and Oncology at Thyroid cancer [facility] [place], operated [place] [facility] [address] Social History Tobacco Use Types Packs/Day [...] Sig Dispensed Refills Start Date End Date calcium citrate Take 1 tablet by 0 (Calcitrate) 200 mg (950 mouth daily. mg) Tablet Taking 400mg daily acetaminophen (Tylenol) 500 Take 2 tablets by 0 1 03/11/2020 mg Tablet mouth as needed for Pain. [...] 500 mg Tablet mouth every other day. calcium citrate Take 1 tablet by 0 09/2021 (Calcitrate) 200 mg (950 mouth daily. mg) Tablet levothyroxine (Synthroid) Take 1 tablet by 90 tablet 3 02/0708/14/2021 125 mcg Tablet mouth daily. Ibuprofen 200 mg Capsule Take 1 capsule by 0 03/202010/14/2021 mouth as needed. omeprazole (PriLOSEC) 20 mg Take 20 mg by 0 10/14/2021 Capsule, Delayed mouth as needed. Release(E.C.) documented [...] Visit (TeleHealth) Hematology and BaumannMarija MD Oncology [facility] HEMATOLOGY ONCOL [place], [place] [address] (Wo rk) 12/16/2021 Scheduled View Only Radiation Oncology 12/17/2021 Scheduled View Only Radiation Oncology 12/18/2021 Scheduled View Only Radiation Oncology 12/18/2021 Infusion Hematology and Oncology 12/21/2021 Scheduled View Only Radiation Oncology 12/22/2021 Scheduled View Only Radiation Oncology documented as of this encounter Procedures Procedure Name Priority Date/Time Associated Comments Diagnosis HC VENIPUNCTURE Routine 06/04/2021 1:47 PM Thyroid cancer Resu lts for this EDT procedure are i n the results section. HC THYROID Routine 06/04/2021 1:47 PM Thyroid cancer Results for this STIMULATING HORMONE, EDT procedu re are in SERUM the results section. documented in this encounter Results (ABNORMAL) TSH (06/04/2021 1:47 PM EDT) P athologist Signature TSH 0.04 (L) 0.27 - 4.20 Realie mcIU/mL [facility] Comment: Reference Interval (mcIU/mL): Females: ??First Trimester: 0.23-3.88 ??Second Trimester: 0.22-3.90 ??Third Trimester: 0.44-4.66 Specimen Anatomical Collection Method Collection Time Receive d Time (Source) Location / / Volume Laterality Blood 06/04/2021 1:47 PM 2 1:51 EDT PM EDT Resulting Agency Comment Spec In Lab Mike Miguel MD CHEMISTRY ORDERABLES Performing Organization Address City/State/[place] [address] Thyroglobulin (06/04/2021 1:47 PM EDT) P athologist Signature Thyroglobulin <0.2 <=54.9 [facility] ng/mL [facility] Thyroglob Ab <20.0 0.0 - 40.0 [place] IU/mL [facility] Specimen Anatomical Collection Method Collection Time Receive d Time (Source) Location / / Volume Laterality Blood 06/04/2021 1:47 PM 7:16 EDT AM EDT Resulting Agency Comment Spec In Lab Mike Miguel MD CHEMISTRY ORDERABLES Performing Organization Address City/State/[place] [address] documented in this encounter Visit Diagnoses Diagnosis Thyroid cancer Malignant neoplasm of thyroid gland documented in this encounter Care Teams Change Control Specialist Relationship Specialty Start Date End Date Viki Elaine PA PCP - General Internal Medicine 12/04/[address] [place] [address] [place] [address] documented as of this encounter
--- OUTSIDE RECORDS SUMMARY | 2021-12-04 13:55 | XMS_ITS | Encounter Summary ---
:1955 Author Organization [facility] [place] [address] Care Team Providers Name Role Phone Viki Elaine Primary Care Provider [phone] Encounter Details Date Type Department Care Team Description 10/09[facility]2021 [facility] [address] [place] [address] EMERGENCY MEDICINE [phone] [place], [place] [address] (Wo rk) Social History Tobacco [...] Oncology [facility] HEMATOLOGY ONCOL [place], [place] [address] (Wo rk) 12/16/2021 Scheduled View Only Radiation Oncology 12/17/2021 Scheduled View Only Radiation Oncology 12/18/2021 Scheduled View Only Radiation Oncology 12/18/2021 Infusion Hematology and Oncology 12/21/2021 Scheduled View Only Radiation Oncology 12/22/2021 Scheduled View Only Radiation Oncology documented as of this encounter Visit Diagnoses Not on filedocumented in this encounter Care Teams Division Chair Relationship Specialty Start Date End Date Viki Elaine PA PCP - General Internal Medicine 12/04/[address] [place] [address] [place] [address] documented as of this encounter
--- OUTSIDE RECORDS SUMMARY | 2021-12-04 13:55 | XMS_ITS | Encounter Summary ---
:1955 Author Organization [facility] [place] [address] Care Team Providers Name Role Phone Viki Elaine Primary Care Provider [phone] Reason for Visit Auth/Cert Specialty Diagnoses / Procedures Referred By Contact Refer red To Contact Diagnoses Brain tumor Increased confusion Kody Singh MD [facility] [address] Referral ID Status Reason Start Date Expiration Date Visits Requ ested Visits Authorized [id number] 1 1 Encounter Details Date Type Department Care Team Description 10/13/2021 Surgery Main Operating Room Kody Singh, @S TEREOTACTIC BX, ASP, Letty George MD OR EXC.-[facility] LESION (WRVU 19.83) [facility] [place] [address] [place] [address] [phone] (Wo rk) Social History Tobacco Use Types [...] Sign Reading Time Taken Comments Blood Pressure 127/71 10/13/2021 4:45 PM EDT Pulse 66 10/13/2021 4:45 PM EDT Temperature 36 ??C (96.8 ??F) 10/13/2021 4:44 PM EDT Respiratory Rate 17 10/13/2021 4:45 PM EDT Oxygen Saturation 100% 10/13/2021 4:45 PM EDT Inhaled Oxygen Concentration - - [...] mass for which patient was transferred to [facility] for further management and Neurosurgical evaluation. [...] IV. She was subsequently trans ferred to [facility] for further care. ?? Today, Lorin is [...] who have questions please contact the health rn wound care that requested your imaging first. Electronically signed by: Stefan Contreras MD, [facility] ([phone]), at 10/10/2021 9:[address] Head wo Contrast (Generic) (Exam End: 10/13/2021 6:39 PM) Impression Expected postbiopsy changes. Thank you for letting us participate in the care of this patient. If you are a health care provider and have any questions regarding this report, please contact the number below. For patients who have questions please contact the health rn wound care that requested your imaging first. Pending Studies and Lab Data: Final Intra-Op Pathology Discharge Condition: Stable Discharge to: Home Future Appointments and Orders Future Orders Complete By Expires Referral to Home Health [REF34 Custom] As directed Process Instructions: If no progress note charted, please enter Clinical details in comments. Scheduling Instructions: Comments: Please evaluate Lorin Cardona for admission to [facility] [place] [facility]. [address] [place] [phone] (home) Date of : 1955 Outpatient Person [...] AND/OR HOSPICE SERVICES) PATIENT'S LOCATION: Lorin Cardona [address] [place] [phone] (home) Cell: Telephone Information: Director E Learning's Name: pt and family In discussion with the attending physician, it is certified that this patient is under their care and that they, or a Nurse Practitioner,Clinical Nurse specialist or Physician Assistant Athletic Trainer who is working directly with them, had [...] for managing ADL's. HOME HEALTH CARE AGENCY: [facility] [address] [place] [address] Start of care: 24-48 hours post discharge [...] be obtained from this patient'sPCP: INE[place] Lindsey [address] [place] [address] / [facility] [id number] All VNA agencies which cover the area of patient's residence have been reviewed, either verbally or in writing, and patient/family have chosen the home health care agency noted Questions: Disciplines Requested: Nursing Physical Therapy Occupational Therapy Referral to Neuro-Oncology [[id number] Custom] As directed Process Instructions: If no [...] standard FWW to be delivered to room N527A on 10/14/21. Pt requires r/t gait instability secondary to brain tumor. Questions: [facility] ht-5'3, wt- 153 lbs Discharge [...] weeks of discharge from the hospital. Neuro-oncology [phone] Radiation oncology, Instructions Given to Patient at Discharge: Patient Instructions CRANIOTOMY FOR BRAIN TUMOR DISCHARGE INSTRUCTIONS PRESCRIPTION INSTRUCTIONS: Please see the medication reconciliation list on this discharge summary for a current list of your medications. Stop the use of blood thinning medications until instructed otherwise by your surgical team. This includes medications known as antiplatelet, anticoagulant, and non-steroidal anti-inflammatory (NSAIDs)drugs. Common zvxa-tsl-tmfygol medications which should be avoided include Aspirin, [...] to pass. These medications can be obtained [id number]-[id number] and their use is recommended on an [...] Primary Care Provider or with the Neurosurgery SILVERWARE WASHER/RN. Appointments: Please follow up in the Neurosurgery Clinic in 1 week via a telehealth appointment with Dr. Singh to discuss the results of your pathology. Please call the Neurosurgery Office at [phone] if you do not receive a scheduled appointment within two weeks. Imaging: No Imaging required at follow-up. A referral was placed to Neuro-Oncology on discharge. Please follow up in the Neuro-Oncology Clinic in two weeks if indicated after discussing pathology. Please call the Neuro-Oncology Office at [phone] if you do not receive a scheduled appointment. A referral was placed to Radiation-Oncology. Please follow up in the Radiation Oncology Clinic in two weeks if indicated after discussing pathology. Please call the Radiation Oncology Office at [phone] if you do not receive a scheduled appointment. Please follow-up with your PCP within 1-2 weeks of discharge for a re-check of your blood sodium level. You are being discharged on salt tablets for hyponatremia. HOW TO REACH NEUROSURGERY Office Hours (Tuesday through Tuesday 8am-5pm): Call On weekends or after office hours (after 5pm or before 8am): Call [phone] and ask the change number operator to page the Neurosurgery Resident/Advanced Practice Provider collection specialist. *Your surgeon may not be call center operations manager (especially after office hours or on the weekend) so be ready to tell about yourself and your surgery when you call. Neurosurgery Providers Adult Neurosurgery Dr. Fred Singh Pediatric Neurosurgery Dr. Alejandra Osuna Advanced Practice Providers Aylin Montelongo, Nurse Practitioner (outpatient) Elida Thompson, Physician Assistant Athletic Trainer (inpatient) Yulia Grove, Nurse Practitioner (inpatient) Anupama Corrigan, Physician Assistant Athletic Trainer (inpatient) Jaron Hawthorne, Nurse Practitioner (outpatient: pediatric) Anupama Marks, Physician Assistant Athletic Trainer (inpatient) Shira Hernandez, Nurse Practitioner (outpatient: vascular) Gema Garvin, Physician Assistant Athletic Trainer (outpatient: spine) Mike Quiles, Nurse Practitioner (inpatient/outpatient) Shlomo Salinas, Physician Assistant Athletic Trainer (outpatient) Africa Evelio, Nurse Practitioner (outpatient: neuro-oncology) Outpatient Nurses Monserrat Young HOW TO REACH NEUROSURGERY Office Hours (Tuesday through Tuesday 8am-5pm): Call On weekends or after office hours (after 5pm or before 8am): Call [phone] and ask the change number operator to page the Neurosurgery Resident/Advanced Practice Provider collection specialist. *Your surgeon may not be call center operations manager (especially after office hours or on the weekend) so be ready to tell about yourself and your surgery when you call. Neurosurgery Providers Adult Neurosurgery Dr. Fred Singh Pediatric Neurosurgery Dr. Alejandra Osuna Advanced Practice Providers Aylin Montelongo, Nurse Practitioner (outpatient) Elida Thompson, Physician Assistant Athletic Trainer (inpatient) Yulia Grove, Nurse Practitioner (inpatient) Anupama Corrigan, Physician Assistant Athletic Trainer (inpatient) Jaron Hawthorne, Nurse Practitioner (outpatient: pediatric) Anupama Marks, Physician Assistant Athletic Trainer (inpatient) Shira Hernandez, Nurse Practitioner (outpatient: vascular) Gema Garvin, Physician Assistant Athletic Trainer (outpatient: spine) Mike Quiles, Nurse Practitioner (inpatient/outpatient) Shlomo Salinas, Physician Assistant Athletic Trainer (outpatient) Africa Fraser, Nurse Practitioner (outpatient: neuro-oncology) [...] antiplatelet, anticoagulant, and non-steroidal anti-inflammatory (NSAIDs)drugs. Common lebw-mry-fnrxyga medications which should be avoided include Aspirin, [...] to pass. These medications can be obtained [id number]-[id number] and their use is recommended on an [...] Primary Care Provider or with the Neurosurgery SILVERWARE WASHER/RN. Appointments: Please follow up in the Neurosurgery Clinic in 1 week via a telehealth appointment with Dr. Singh to discuss the results of your pathology. Please call the Neurosurgery Office at [phone] if you do not receive a scheduled appointment within two weeks. Imaging: No Imaging required at follow-up. A referral was placed to Neuro-Oncology on discharge. Please follow up in the Neuro-Oncology Clinic in two weeks if indicated after discussing pathology. Please call the Neuro-Oncology Office at [phone] if you do not receive a scheduled appointment. A referral was placed to Radiation-Oncology. Please follow up in the Radiation Oncology Clinic in two weeks if indicated after discussing pathology. Please call the Radiation Oncology Office at [phone] if you do not receive a scheduled appointment. Please follow-up with your PCP within 1-2 weeks of discharge for a re-check of your blood sodium level. You are being discharged on salt tablets for hyponatremia. HOW TO REACH NEUROSURGERY Office Hours (Tuesday through Tuesday 8am-5pm): Call On weekends or after office hours (after 5pm or before 8am): Call [phone] and ask the change number operator to page the Neurosurgery Resident/Advanced Practice Provider collection specialist. *Your surgeon may not be call center operations manager (especially after office hours or on the weekend) so be ready to tell about yourself and your surgery when you call. Neurosurgery Providers Adult Neurosurgery Dr. Fred Singh Pediatric Neurosurgery Dr. Alejandra Osuna Advanced Practice Providers Aylin Montelongo, Nurse Practitioner (outpatient) Elida Thompson, Physician Assistant Athletic Trainer (inpatient) Yulia Groev, Nurse Practitioner (inpatient) Anupama Corrigan, Physician Assistant Athletic Trainer (inpatient) Jaron Hawthorne, Nurse Practitioner (outpatient: pediatric) Anupama Marks, Physician Assistant Athletic Trainer (inpatient) Shira Hernandez, Nurse Practitioner (outpatient: vascular) Gema Garvin, Physician Assistant Athletic Trainer (outpatient: spine) Mike Quiles, Nurse Practitioner (inpatient/outpatient) Shlomo Salinas, Physician Assistant Athletic Trainer (outpatient) Africa Fraser, Nurse Practitioner (outpatient: neuro-oncology) Outpatient Nurses Monserrat Young documented in this encounter Medications at [...] [facility] [facility] symptoms of nausea, vomiting [...] performed by Fabienne De Dios MD at [facility] MAIN OR ??? PRO REMOVAL NODES, NECK, CERV MOD RAD Left 01/07/2021 @CERVICAL LYMPHADENECTOMY (MODIFIED RADICAL NECK DISSECTION) (WRVU 23.95) performed by Fabienne De Dios MD at [facility] MAIN OR ??? PRO STEREOTACTIC BRAIN BX, ASPIR, EXC Left 10/13/2021 @STEREOTACTIC BX, ASP, OR EXC.-INTRACRANIAL LESION (WRVU 19.83) performed by Kody Singh MD at [facility] MAIN OR ??? PRO THYROIDECTOMY, MALIG, LTD NECK SURG Bilateral 01/07/2021 THYROIDECTOMY, FOR MALIGNANCY, LIMITED NECK DISSECTION (WRVU 22.01) performed by Tony De Dios MD at [facility] MAIN OR Social History: Lives with spouse in [place], [place] in a one level home although [...] for this consult. VIDHYA GONZALES, PT Pager: [phone] Physical Therapy Inpatient Rehabilitation Department Time IN [...] RN - 10/14/2021 10:30 AM EDT The Anatomy Teacher has been provided a list of Home Health Agencies/DME vendors which serve their preferred geographic area. A letter describing our affiliations was reviewed with them and they were educated about their right to choose where referrals are placed. Provided patient with [facility] Star Quality Rating for Home care hand out. Patient requests referral to : [facility] [address] [place] [address] *For RN, OT, PT Also Ortho Care Located @ [facility] Center [place], [place] *For standard FWW Expected date of discharge: 10/14/21. Referral routed to the Steel Handler for matching with agency/vendor and to provide any required information. Betty Hernandez MSN-Ed, RN ACM art history professor Office of Care Management Pager #[phone] Sabrina Valencia OT - 10/14/2021 10:11 AM EDT Occupational Therapy Evaluation Patient profile: Lorin Cardona is a 66 y.o. female admitted on 10/09/[address] [facility] with symptoms of nausea, vomiting [...] performed by Fabienne De Dios MD at [facility] MAIN OR ??? PRO REMOVAL NODES, NECK, CERV MOD RAD Left 01/07/2021 @CERVICAL LYMPHADENECTOMY (MODIFIED RADICAL NECK DISSECTION) (WRVU 23.95) performed by Fabienne De Dios MD at [facility] MAIN OR ??? PRO STEREOTACTIC BRAIN BX, ASPIR, EXC Left 10/13/2021 @STEREOTACTIC BX, ASP, OR EXC.-INTRACRANIAL LESION (WRVU 19.83) performed by Kody Singh MD at [facility] MAIN OR ??? PRO THYROIDECTOMY, MALIG, LTD NECK SURG Bilateral 01/07/2021 THYROIDECTOMY, FOR MALIGNANCY, LIMITED NECK DISSECTION (WRVU 22.01) performed by Tony De Dios MD at [facility] MA[facility] OR Social History: Patient lives with [...] Date: 10/14/2021 Total Minutes, Occupational Therapy: 48 ([id number]) 2017 OT Evaluation Code Rationale: ?? Diagnosis [...] instrument andmeasurable assessment of functional outcome. Pager: [phone] SABRINA VALENCIA OT 10/14/2021 Occupational Therapy Rehabilitation Department Marilyn Barron MD - 10/14/2021 5:39 AM EDT NEUROSURGERY PROGRESS NOTE PLEASE PAGE [phone] WITH QUESTIONS ID: Lorin Cardona is a 66 y.o. female with a PMHx significant for migraine, papillary thyroid cancer s/p total thyroidectomy (now hypothyroid) who presented to OSH for progressive confusion, [place], nausea and vomiting found to have an intracranial mass for which patient was transferred to [facility] for further management and Neurosurgical evaluation [...] No facial asymmetry Tongue midline MOTOR: RUE: 55 LUE: 5/5 RLE: 5/5 LLE: 5 No pronator drift LT sensation intact x 4 Biopsy site c/d/i, crani cap with small amount of drainage A/P: Lorin Cardona is a 66 y.o. female with a PMHx significant for migraine, papillary thyroid cancer s/p total thyroidectomy (now hypothyroid) who presented to OSH for progressive confusion, [place], nausea and vomiting found to have an intracranial mass for which patient was transferred to [facility] forfurther management and Neurosurgical evaluation. CTH [...] Out: 26 [Urine:1; Blood:25] LABS: Recent Labs 10/14/21 0054 10/13/21 0034 10/12/21 005 WBC 13.8* 10.8* 13.5* HGB 13.6 13.6 13.4 PLATELET 159 161 156 Recent Labs 10/14/21 0054 10/13/21 0034 10/12/21 0051 NA 137 133* [...] who have questions please contact the health rn wound care that requested your imaging first. Electronically signed by: [facility] ([phone]), at 10/10/2021 9:[address] Head wo Contrast (Generic) (Exam End: 10/13/2021 6:39 PM) Impression Expected postbiopsy changes. Thank you for letting us participate in the care of this patient. If you are a health care provider and have any questions regarding this report, please contact the number below. For patients who have questions please contact the health rn wound care that requested your imaging first. Active Hospital [...] Marizol Duvall - 10/13/2021 2:20 PM EDT Insecticide Expert Encounter Note Patient Name: Lorin Cardona : [id number] MR#: [id number] Admit Date: 10/09/2021 5:28 PM Hospital Day 4 days Narrative: A response to a phone call for a request for Sacrament of the sick to a patient going for surgery today at 2:30 pm. Assessment: I visited patient in the presence of his family, , sister and [id number]. Patient is awake, alert and oriented. Patient [...] and her love ones expressed appreciation. Follow-up: Food Services Director in charge of the Unit will follow up as needed and a mini lab operator on request. Time in Direct Care: Natalia Duvall 10/13/2021 Maddy Kline OT - 10/13/2021 12:45 PM EDT 10/13/21 1243 Evaluation & Treatment Document Type contact Total Minutes, Occupational Therapy 0 Comment, Session Not Performed Order received and chart reviewed. Pt going off floor for a procedure; plan to assess s/p procedure. Dimple Romero MD - 10/13/2021 4:13 AM EDT NEUROSURGERY PROGRESS NOTE PLEASE PAGE [phone] WITH QUESTIONS ID: Lorin Cardona is a 66 y.o. female with a PMHx significant for migraine, papillary thyroid cancer s/p total thyroidectomy (now hypothyroid) who presented to OSH for progressive confusion, [place], nausea and vomiting found to have an intracranial mass for which patient was transferred to [facility] for further management and Neurosurgical evaluation [...] EOMI. No facial asymmetry Tongue midline MOTOR: RUE:55 LUE:5/5 RLE: 55 LLE: 06/11 No pronator drift LT sensation intact x 4 A/P: Lorin Cardona is a 66 y.o. female with a PMHx significant for migraine, papillary thyroid cancer s/p total thyroidectomy (now hypothyroid) who presented to OSH for progressive confusion, [place], nausea and vomiting found to have an intracranial mass for which patient was transferred to [facility] forfurther management and Neurosurgical evaluation. CTH [...] who have questions please contact the health rn wound care that requested your imaging first. Electronically signed by: Stefan Contreras MD, [facility] ([phone]), at 10/10/2021 9:42 AM Active Hospital Problems Diagnosis ??? Brain tumor Resolved Hospital Problems No resolved problems to display. Active Non-Hospital Problems Diagnosis ??? Thyroid cancer Dimple Romero MD 10/13/2021 Wesley Martinez - 10/12/2021 5:36 PM EDT Insecticide Expert Encounter Note Patient Name: Lorin Cardona : [id number] MR#: [id number] Admit Date: 10/09/2021 5:28 PM Hospital Day 3 days Narrative:Visited to introduce and assess acceptance of Insecticide Expert services. Assessment:Patient was awake, alert, oriented and [...] Outcome:Provided emotional, spiritual support and listening presence. Insecticide Expert services accepted. Conversation to build trusting relationship. Provided pastoral presence. Provided spiritual guidance. Provided prayer. Follow-up: yes Time in Direct Care:20 Mins Wesley Martinez 10/12/2021 Dimple Romero MD - 10/12/2021 5:47 AM EDT NEUROSURGERY PROGRESS NOTE PLEASE PAGE [phone] WITH QUESTIONS ID: Lorin Cardona is a 66 y.o. female with a PMHx significant for migraine, papillary thyroid cancer s/p total thyroidectomy (now hypothyroid) who presented to OSH for progressive confusion, [place], nausea and vomiting found to have an intracranial mass for which patient was transferred to [facility] for further management and Neurosurgical evaluation [...] mass for which patient was transferred to [facility] forfurther management and Neurosurgical evaluation. CTH [...] who have questions please contact the health rn wound care that requested your imaging first. Electronically signed by: Stefan Contreras MD, [facility] ([phone]), at 10/10/2021 9:42 AM Active Hospital Problems Diagnosis ??? Brain tumor Resolved Hospital Problems No resolved problems to display. Active Non-Hospital Problems Diagnosis ??? Thyroid cancer Dimple Romero MD 10/12/2021 Dimple Romero MD - 10/11/2021 5:48 AM EDT NEUROSURGERY PROGRESS NOTE PLEASE PAGE [phone] WITH QUESTIONS ID: Lorin Cardona is a 66 y.o. female with a PMHx significant for migraine, papillary thyroid cancer s/p total thyroidectomy (now hypothyroid) who presented to OSH for progressive confusion, [place], nausea and vomiting found to have an intracranial mass for which patient was transferred to [facility] for further management and Neurosurgical evaluation [...] mass for which patient was transferred to [facility] forfurther management and Neurosurgical evaluation. CTH [...] who have questions please contact the health rn wound care that requested your imaging first. Electronically signed by: Stefan Contreras MD, [facility] ([phone]), at 10/10/2021 9:42 AM Active Hospital Problems Diagnosis ??? Brain tumor [...] AM EDT NEUROSURGERY PROGRESS NOTE PLEASE PAGE [phone] WITH QUESTIONS ID: Lorin Cardona is a 66 y.o. female with a PMHx significant for migraine, papillary thyroid cancer s/p total thyroidectomy (now hypothyroid) who presented to OSH for progressive confusion, [place], nausea and vomiting found to have an intracranial mass for which patient was transferred to [facility] for further management and Neurosurgical evaluation [...] mass for which patient was transferred to [facility] forfurther management and Neurosurgical evaluation. CTH [...] ??C (98.6 ??F)] Heart Rate: [52-81] Resp: [-22] BP: (107-140)/(55-105) SpO2: [91 %-98 %] Heart [...] Letty Rea RN - 10/09/2021 7:18 PM EDTSummary: Arrival 1725: Arrived to hospital from [facility] via helicopter. Brought to room 59 via [...] Singh MD - 10/09/2021 7:00 PM EDT [facility] NEUROSURGERY H&P Date: 10/09/2021 ID: Lorin [...] mass for which patient was transferred to [facility] for further management and Neurosurgical evaluation. [...] IV. She was subsequently trans ferred to [facility] for further care. Today, Lorin is arousable [...] performed by Fabienne De Dios MD at [facility] MAIN OR ??? PRO REMOVAL NODES, NECK, CERV MOD RAD Left 01/07/2021 @CERVICAL LYMPHADENECTOMY (MODIFIED RADICAL NECK DISSECTION) (WRVU 23.95) performed by Fabienne De Dios MD at [facility] MAIN OR ??? PRO THYROIDECTOMY, MALIG, LTD NECK SURG Bilateral 01/07/2021 THYROIDECTOMY, FOR MALIGNANCY, LIMITED NECK DISSECTION (WRVU 22.01) performed by Tony De Dios MD at [facility] MAIN OR Medications: No current facility-administered medications [...] 7.6 HGB 13.7 PLATELET 164 Recent Labs 09/02/22 1816 NA 135 K 4.0 CL 100 CO2 [...] mass for which patient was transferred to [facility] for further management and Neurosurgical evaluation. [...] MD. Dimple Romero MD 10/09/2021 7:01 PM [facility] Neurosurgery Inpatient Pager: #[phone] Personal Pager: #[phone] Active Hospital Problems Diagnosis ??? Brain tumor [...] symptoms and was actually transferred here to [facility] for further evaluation. She did undergo [...] neurologic examination notable for disorientation otherwise nonfocal. [facility] contacted for neurosurgical consultation. Pt given 1 g of Keppra and 10mg of decadron. Due to concern for development of hydrocephalus, pt transferred to NCCU for further care. On arrival to ICU, patient's vitals were stable. She was responding appropriately to questioning with her name, year. She thought she was at [facility]. 400mL were straight cathed from bladder before [...] performed by Fabienne De Dios MD at [facility] MAIN OR ??? PRO REMOVAL NODES, NECK, CERV MOD RAD Left 01/07/2021 @CERVICAL LYMPHADENECTOMY (MODIFIED RADICAL NECK DISSECTION) (WRVU 23.95) performed by Fabienne De Dios MD at [facility] MAIN OR ??? PRO THYROIDECTOMY, MALIG, LTD NECK SURG Bilateral 01/07/2021 THYROIDECTOMY, FOR MALIGNANCY, LIMITED NECK DISSECTION (WRVU 22.01) performed by Tony De Dios MD at [facility] MAIN OR Social History Tobacco Use ??? [...] visit (from the past 24 hour(s)). Imaging: [facility] wo Contrast (10/09/2021) EKG: Physical Exam: General- patient generally slow to respond but answers questioning appropriately, AOx2 and says she is at [facility] Cardio- normal S1 and S2 without murmurs [...] Assessment Rehab Services Consulted PT/OT: Not indicated CHILD CARE WORKER: Not indicated Family Meeting in Last 5 [...] discharge to home with family support and [place] [facility] for RN, OT, Pt and a walker from [facility]. Needs for Transition of Care: Plan for discharge is: Home w/ Services Outpatient Agency/Support Group Needs: Homecare agency *TBD Agency Referrals & Follow-up Care: Contact information for follow-up [facility] [address] [address] [facility] [address] [address] Transportation: family or friend will provide-via private [...] Type: *No Product type* / Secondary Insurance: [employer] Prescription Coverage: Yes This plan was formulated with input from patient, pt and Ginger (please identify family/friendinvolved if applicable) and team. All are in agreement with plan. Betty ARANGO, RN Pager #[phone] Brief Op Note - Isaías Valladares MD - 10/13/2021 4:26 PM EDT Brief Operative Note Patient Name: Lorin Cardona DOB: [id number] MR#: [id number] Case Date: 10/13/2021 Surgeon: Surgeon(s) and Role: [...] Valladares MD - 10/13/2021 3:51 PM EDT [facility] Operative Note Patient Name: Lorin Cardona : [id number] MR#: [id number] Case Date: 10/13/2021 Surgeon: Surgeon(s) and Role: [...] perioperative prophylaxis. The patient was placed in [place] three-point fixation. The patient was registered with the [employer] navigation and an incision was marked over [...] COVID test: Lab Results Component Value Date [id number] Not Detected 01/07/2021 Present on Admission: ??? Brain tumor Hospitalizations Within the Past 30 Days: no previous admission in last 30 days Patient receiving hospital care under Inpatient status. Admission order reviewed. Primary Insurance on file: MEDICARE Secondary Insurance on file:@ Primary care provider on file: INEZ Lindsey [phone] Pharmacy: [id number] - [place], [place] - [address] [facility] [address] [facility] ([place]) - [address] [address] Health/Prescription Coverage: Primary Insurance: MEDICARE Payor: MEDICARE / Plan: MEDICARE PART A & B / Product Type: *No Product type* / Secondary Insurance: [facility] Secondary Insurance? (Only Medicare A&B): Yes ; Prescription Coverage: Yes Preferred Pharmacy: [id number] - [place], [place] - [address] [facility] [address] [facility]) - [address] [address] Advance Care Planning: Attempt Cardiopulmonary Resuscitation - Inpatient <no information> -Advanced Directive: No, need to discuss Current Functional Ability: Assistive Person, Assistive Equipment and Assistive Person Functional Status Prior to Admission: Independent Home Environment: Others in the home: spouse. Current Living Arrangements: home/apartment/condo. Accessibility Concerns:no concerns noted at this time.. Current DME: none [address] [facility] [address] Social & Family Supports: All names listed [...] team feels it is needed. Registered Nurse Kitchen Runner / Hose Builder will continue to follow patient???s progress and remain available if situation changes for coordination of care, psychosocial support and/or discharge planning. Office of Care Management Betty ARANGO, RN Pager #[phone] Plan of Care - Anu Reyes RN [...] Marija Baumann MD Oncology [facility] HEMATOLOGY [place], [place] [address] (Wo rk) 12/16/2021 Scheduled View [...] NGS PANEL Routine 10/13/2021 4:11 PM EDT [facility] TEST-BENJAMIN Routine 10/13/2021 4:11 PM Re [...] (ABNORMAL) Differential, Automated (10/14/2021 12:54 AM EDT) [facility] Method Time Signature Neutrophils % 89.8 % [facility] LABORATORY Neutr Abs (ANC) 12.43 (H) 1.70 - [facility] 6.10 [facility] x10(3)/[facility] LABORATORY Lymphocytes % 2.7 % [facility] Lymphocytes Abs 0.4 (L) 0.9 - 3.2 [facility] x10(3)/[facility] LABORATORY Monocytes % 6.8 % [facility] Monocyte Abs 0.9 0.3 - 0.9 [facility] x10(3)/[facility] LABORATORY Eosinophils % 0.0 % [facility] Eosinophils Abs 0.0 0.0 - 0.4 [facility] x10(3)/[facility] LABORATORY Basophils % 0.1 % [facility] Basophils Abs 0.0 0.0 - 0.1 [facility] x10(3)/[facility] LABORATORY Immature Gran % 0.60 % [facility] Comment: Immature granulocytes(IG's)percentage an d absolute count will include metamyelocytes, myelocytes, and promyelo cytes. Blood smears from CBCs yielding IG's will be scanned manually for concor dance. If this scan disagrees with the automated IG or if promyelocytes are not ed, a manual differential will be performed. Radha Gran Abs 0.08 (H) 0.00 - 0.04 x10(3)/[facility] LABORATORY Specimen Anatomical Collection Method Collection Time Receive d Time (Source) Location / / Volume Laterality Blood 10/14/2021 12:54 10/14/2021 1:26 AM EDT AM EDT Resulting Agency Comment Spec In Lab Isaías Valladares MD HEMATOLOGY ORDERABLES Performing Organization Address City/State/[place] [address] (ABNORMAL) Hemogram (10/14/2021 12:54 AM EDT) Analysis Performed At Patho logist Time Signature WBC 13.8 (H) 4.0 - 9.5 [facility] x10(3)/[facility] LABORATORY RBC 4.16 4.00 - [facility] 5.21 [facility] x10(6)/[facility] LABORATORY Hemoglobin 13.6 11.7 - [facility] 15.5 g/dL [facility] LABORATORY Hematocrit 39.8 35.7 - [facility] 45.8 % [facility] LAB[facility]ATORY MCV 95.7 (H) 82.6 - [facility] 94.4 [facility] LABORATORY MCH 32.7 (H) 27.1 - [place] [facility] 32.0 pg [facility] LABORATORY MCHC 34.2 31.7 - [facility] 35.0 g/dL [facility] LABORATORY Platelets 159 145 - 357 [facility] x10(3)/[facility] LABORATORY RDWSD 46.8 (H) 37.0 - [facility] 46.0 [facility] LABORATORY RDWCV 13.2 11.5 - [facility] 14.1 % [facility] LABORATORY MPV 9.6 7.6 - 12.9 [facility] nRBC % Auto 0.0 % [facility]OR[facility] nRBC Abs Auto 0.000 0.000 - [facility] 0.000 [facility] x10(3)/[facility] LABORATORY Specimen Anatomical Collection Method Collection Time Receive d Time (Source) Location / / Volume Laterality Blood 10/14/2021 12:54 10/14/2021 1:26 AM EDT AM EDT Resulting Agency Comment Spec In Lab Isaías Valladares MD HEMATOLOGY ORDERABLES Performing Organization Address City/State/[place] [address] (ABNORMAL) Basic Metabolic Panel (non-fasting) (10/14/2021 12:54 AM EDT) P athologist Signature Glucose Lvl 153 65 - 199 [facility] mg/dL [facility] LABOR[facility]ORY Comment: Diabetes: >=200 mg/dL plus symp toms BUN 20 (H) 8 - 18 mg/dL [facility] LABORATORY Creatinine 0.77 0.70 - 1.20 mg/dL [facility] LABORATORY Sodium 137 135 - 145 mmol/L [facility] LABORATORY Potassium 4.3 3.5 - 5.0 mmol/L [facility]OR[facility]ORY Comment: Please note: ??Patients with WBC >100,00 0 may have falsely elevated Potassium levels. ??For accurate Potassium quantif ication in these patients send serum separator tube (gold top) for subsequent determinations. ??Contact the Clinical Chemistry Laboratory if there are any qu estions. Chloride 104 98 - 107 mmol/L [facility] CO2 24 22 - 31 mmol/L [facility] Anion Gap 9 5 - 15 mmol/L [facility] LABORATORY Calcium 8.5 8.5 - 10.5 mg/dL [facility] LABORATORY Estimated GFR 84 >=60 mL/min/1.73 m?? [facility] Comment: This patient's estimated [...] Singh MD CHEMISTRY ORDERABLES Performing Organization Address City/[facility]/ZIP Code Phon e Number [address] Phosphorus (10/14/2021 12:54 AM EDT) P athologist Signature Phosphorus 3.4 2.5 - 4.5 [place] mg/dL [facility] LABORATORY Specimen Anatomical Collection Method Collection Time Receive d Time (Source) Location / / Volume Laterality Blood 10/14/2021 12:54 10/14/2021 1:26 AM EDT AM EDT Resulting Agency Comment Spec In Lab Kody Singh MD CHEMISTRY ORDERABLES Performing Organization Address City/[facility]/ZIP Code Phon e Number [place] [address] Magnesium (10/14/2021 12:54 AM EDT) P athologist Signature Magnesium 0.83 0.69 - 1.07 [place] mmol/L [facility] LABORATORY Specimen Anatomical Collection Method Collection Time Receive d Time (Source) Location / / Volume Laterality Blood 10/14/2021 12:54 10/14/2021 1:26 AM EDT AM EDT Resulting Agency Comment Spec In Lab Kody Singh MD CHEMISTRY ORDERABLES Performing Organization Address City/[facility]/[place] [address] Head wo Contrast [...] who have questions please contact the health rn wound care that requested your imaging first. ? Narrative 10/13/2021 6:55 PM EDT EXAMINATION: CT HEAD WO CONTRAST (GENERIC) CLINICAL HISTORY: Brain/ALUMINUM POOL INSTALLER neoplasm, st aging; s/p biopsy TECHNIQUE: CT [...] HEAD WO CONTRAST (GENERI C) CLINICAL HISTORY: Brain/ALUMINUM POOL INSTALLER neoplasm, st aging; s/p biopsy TECHNIQUE: CT [...] ho have questions please contact the health rn wound care that requested your imaging first. Kody Singh MD IMG CT ORDERABLES Specimen to Pathology (10/13/2021 4:12 PM EDT) Specimen Anatomical Collection Method Collection Time Receive d Time (Source) Location / / Volume Laterality AP Specimen 10/13/2021 4:12 PM 2 4:12 EDT PM EDT Narrative [facility] ORY - 10/13/2021 4:12 PM EDT Specimen requisition ordered. ??Separate Pathology report to follow Kody Singh MD PATHOLOGY/CYTOLOGY ORDERABLE S Performing Organization Address City/State/ZIP [place] [address] [facility] Benjamin Test-Benjamin (10/13/2021 4:11 PM EDT) Component Value Ref Test Analysis Performed At [facility] gist Range Method Time Signature [facility] Benjamin [place] Test ? Result ?Flag ??Unit ??RefValue [facility] MGMT Promoter Methylation, Tumor HOSPITAL ??Result [...] and its performance characteri stics ?determined by [facility] in a manner consistent with CLIA ?requirements. This test has not been cleared or approv ed by ?the U.S. Food and Drug Administration. ??Additional Information ? SEE SKY ADRIAN ?REFERENCES ?1. N Engl J Med 2005;352(10):997-1003 (PMID: [id number]) ?2. Renee Rev Neurol 2010;6:39-51 (PMID: [id number]) ?3. Lancet Oncol. 2012; 13:707-715 (PMID: [id number]) ?4. Lancet Oncol. 2012; 13: 916-926 (PMID: [id number]) ?5. Renee Rev Neurol 2014;10:372-385 (PMID: [id number]) ??Specimen ? Tis more, Tumor ??Tissue ID ?SP- [id number] ??Released by ?Eunice Guerrero M.D., Ph.D. ?Test Performed by: ?[facility] [place] ?[address] [place] [address] ?Local Intermodal Truck Driver: Dez Pratt M.D. Ph.D.; CLIA# [id number] Specimen Anatomical Collection Method Collection Time Receive d Time (Source) Location / / Volume Laterality Other Other / Unknown 10/13/2021 4:11 PM 2021 EDT 12:37 PM EDT Resulting Agency Comment Spec In Lab Deni Cruz MD CHEMISTRY ORDERABLES Performing Organization Address City/State/[place] [address] Surgical Pathology Report (10/13/2021 4:11 PM EDT) Component Value Ref Test Analysis [facility]formed [facility] gist Range Method Time Signature Surgical [id number] ? Location: [facility]; N52; A [facility] Report The signing pathologist has (i) examined the relevant preparation(s) for the MEMORIAL specimen(s) and (ii) rendered or confirmed the diagnosis(es) . HOSPITAL LABORATORY . 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 Pathologist Performed at: ??-[facility] Dept. of Pathology, [place], [place] DISCUSSION Hematoxylin and eosin-staine d sections [...] MD PATHOLOGY/CYTOLOGY ORDERABLE S Performing Organization Address City/[facility]/ZIP Code Phon e Number [address] Solid Tumor NGS Panel (10/13/2021 4:11 PM EDT) Specimen Anatomical Collection Method Collection Time Receive d Time (Source) Location / / Volume Laterality Tissue 10/13/2021 4:11 PM 5:22 EDT PM EDT Resulting Agency Comment Spec In Lab Kody Singh MD PATHOLOGY/CYTOLOGY ORDERABLE S Performing Organization Address City/[facility]/ZIP Code Phon e Number [place] [address] (ABNORMAL) Differential, Automated (10/13/2021 12:34 AM EDT) [facility] gist Method Time Signature Neutrophils % 89.8 % [facility] LABOR[facility]ORY Neutr Abs (ANC) 9.70 (H) 1.70 - [facility] 6.10 [facility] x10(3)/[facility] LABORATORY Lymphocytes % 3.8 % [facility] LABORATORY Lymphocytes Abs 0.4 (L) 0.9 - 3.2 [facility] x10(3)/[facility] LABORATORY Monocytes % 5.7 % [facility] LABORATORY Monocyte Abs 0.6 0.3 - 0.9 [facility] x10(3)/[facility] LABORATORY Eosinophils % 0.0 % [facility]OR[facility]ORY Eosinophils Abs 0.0 0.0 - 0.4 [facility] x10(3)/[facility] LABORATORY Basophils % 0.1 % [facility] LABOR[facility]ORY Basophils Abs 0.0 0.0 - 0.1 [facility] x10(3)/[facility] LABORATORY Immature Gran % 0.60 % [facility] Comment: Immature granulocytes(IG's)percentage an d absolute count will include metamyelocytes, myelocytes, and promyelo cytes. Blood smears from CBCs yielding IG's will be scanned manually for concor dance. If this scan disagrees with the automated IG or if promyelocytes are not ed, a manual differential will be performed. Radha Gran Abs 0.06 (H) 0.00 - 0.04 x10(3)/[facility] LABORATORY Specimen Anatomical Collection Method Collection Time Receive d Time (Source) Location / / Volume Laterality Blood 10/13/2021 12:34 10/13/2021 AM EDT 12:39 AM EDT Resulting Agency Comment Spec In Lab Rasheeda Baltazar MD HEMATOLOGY ORDERABLES Performing Organization Address City/State/ZIP [place] [address] (ABNORMAL) Hemogram (10/13/2021 12:34 AM EDT) Analysis Performed At Patho logist Time Signature WBC 10.8 (H) 4.0 - 9.5 [facility] x10(3)/[facility] LABORATORY RBC 4.14 4.00 - [facility] 5.21 [facility] x10(6)/[facility] LABORATORY Hemoglobin 13.6 11.7 - [facility] 15.5 g/dL [facility]ORY Hematocrit 39.8 35.7 - [facility] 45.8 % [facility] MCV 96.1 (H) 82.6 - [facility] 94.4 [facility] LABORATORY MCH 32.9 (H) 27.1 - [facility] 32.0 pg [facility] LABORATORY MCHC 34.2 31.7 - [facility] 35.0 g/dL [facility] LABORATORY Platelets 161 145 - 357 [facility] x10(3)/[facility] LABORATORY RDWSD 46.8 (H) 37.0 - [facility] 46.0 [facility] LABORATORY RDWCV 13.2 11.5 - [facility] 14.1 % [facility] LABORATORY MPV 10.0 7.6 - 12.9 [facility] LABORATORY nRBC % Auto 0.0 % [facility] LABORATORY nRBC Abs Auto 0.000 0.000 - [facility] 0.000 [facility] x10(3)/[facility] LABORATORY Specimen Anatomical Collection Method Collection Time Receive d Time (Source) Location / / Volume Laterality Blood 10/13/2021 12:34 10/13/2021 AM EDT 12:39 AM EDT Resulting Agency Comment Spec In Lab Rasheeda Baltazar MD HEMATOLOGY ORDERABLES Performing Organization Address City/State/ZIP [place] [address] (ABNORMAL) Basic Metabolic Panel (non-fasting) (10/13/2021 12:34 AM EDT) P athologist Signature Glucose Lvl 139 65 - 199 [facility] mg/dL [facility] LABORATORY Comment: Diabetes: >=200 mg/dL plus symp toms BUN 22 (H) 8 - 18 mg/dL [facility] LABORATORY Creatinine 0.70 0.70 - 1.20 mg/dL [facility] LABORATORY Sodium 133 (L) 135 - 145 mmol/L [facility] LABORATORY Potassium 4.1 3.5 - 5.0 mmol/L [facility] LABORATORY Comment: Please note: ??Patients with WBC >100,00 0 may have falsely elevated Potassium levels. ??For accurate Potassium quantif ication in these patients send serum separator tube (gold top) for subsequent determinations. ??Contact the Clinical Chemistry Laboratory if there are any qu estions. Chloride 101 98 - 107 mmol/L [facility]OR[facility]ORY CO2 24 22 - 31 mmol/L [facility] Anion Gap 8 5 - 15 mmol/L [facility] LABORATORY Calcium 8.7 8.5 - 10.5 mg/dL [facility] LABORATORY Estimated GFR 94 >=60 mL/min/1.73 m?? [facility] Comment: This patient's estimated [...] Singh MD CHEMISTRY ORDERABLES Performing Organization Address City/[facility]/ZIP [facility] Phon e Number [address] Phosphorus (10/13/2021 12:34 AM EDT) P athologist Signature Phosphorus 2.5 2.5 - 4.5 [facility] LABOR[facility]ORY Specimen Anatomical Collection Method Collection Time Receive d Time (Source) Location / / Volume Laterality Blood 10/13/2021 12:34 10/13/2021 AM EDT 12:39 AM EDT Resulting Agency Comment Spec In Lab Kody Singh MD CHEMISTRY ORDERABLES Performing Organization Address City/[facility]/ZIP Code Phon e Number [address] Magnesium (10/13/2021 12:34 AM EDT) P athologist Signature Magnesium 0.87 0.69 - 1.07 [facility] mmol/L [facility] LABORATORY Specimen Anatomical Collection Method Collection Time Receive d Time (Source) Location / / Volume Laterality Blood 10/13/2021 12:34 10/13/2021 AM EDT 12:39 AM EDT Resulting Agency Comment Spec In Lab Kody Singh MD CHEMISTRY ORDERABLES Performing Organization Address City/[facility] Phon e Number [address] Type and Screen Validity (10/12/2021 9:18 AM EDT) Patholo gist Method Time Signature T&S only valid [facility] LABORATORY Comment: This Type and Screen result is only valid at the [facility] Hospital Specimen Anatomical Collection Method Collection Time Receive d Time (Source) Location / / Volume Laterality Blood 10/12/2021 9:18 AM 2 9:25 EDT AM EDT Resulting Agency Comment Spec In Lab Rasheeda Baltazar MD BLOOD BANK ORDERABLES Performing Organization Address City/[facility]/ZIP Code Phon e Number [address] ABORH Recheck Status (10/12/2021 9:18 AM EDT) [facility] gist Method Time Signature ABORH Type Completed [facility] LABORATORY Specimen Anatomical Collection Method Collection Time Receive d Time (Source) Location / / Volume Laterality Blood 10/12/2021 9:18 AM 2 9:25 EDT AM EDT Resulting Agency Comment Spec In Lab Rasheeda Baltazar MD BLOOD BANK ORDERABLES Performing Organization Address City/[facility]/[place] [address] Antibody screen (10/12/2021 9:18 AM EDT) [facility] Method Time Signature Ab Screen Negative [facility] LABORATORY Expires at 10/15/2021 [facility] [id number] on: [facility] LABORATORY Specimen Anatomical Collection Method Collection Time Receive d Time (Source) Location / / Volume Laterality Blood 10/12/2021 9:18 AM 2 9:25 EDT AM EDT Resulting Agency Comment Spec In Lab Rasheeda Baltazar MD BLOOD BANK ORDERABLES Performing Organization Address City/[facility]/[place] [address] ABO/Rh Typing (10/12/2021 9:18 AM EDT) P athologist Signature ABORh Type A Pos [facility] LABORATORY Specimen Anatomical Collection Method Collection Time Receive d Time (Source) Location / / Volume Laterality Blood 10/12/2021 9:18 AM 2 9:25 EDT AM EDT Resulting Agency Comment Spec In Lab Rasheeda Baltazar MD BLOOD BANK ORDERABLES Performing Organization Address City/[facility]/[place] [address] (ABNORMAL) Differential, Automated (10/12/2021 12:51 AM EDT) [facility] Method Time Signature Neutrophils % 90.4 % [facility] LABORATORY Neutr Abs (ANC) 12.20 (H) 1.70 - [facility] 6.10 [facility] x10(3)/[facility] L LABORATORY Lymphocytes % 3.2 % [facility] LABORATORY Lymphocytes Abs 0.4 (L) 0.9 - 3.2 [facility] x10(3)/[facility] LABORATORY Monocytes % 5.9 % [facility] LABORATORY Monocyte Abs 0.8 0.3 - 0.9 [facility] x10(3)/[facility] LABORATORY Eosinophils % 0.0 % [facility] LABORATORY Eosinophils Abs 0.0 0.0 - 0.4 [facility] x10(3)/[facility] LABORATORY Basophils % 0.1 % [facility] LABORATORY Basophils Abs 0.0 0.0 - 0.1 [facility] x10(3)/[facility] LABORATORY Immature Gran % 0.40 % [facility] LABORATORY Comment: Immature granulocytes(IG's)percentage an d absolute count will include metamyelocytes, myelocytes, and promyelo cytes. Blood smears from CBCs yielding IG's will be scanned manually for concor dance. If this scan disagrees with the automated IG or if promyelocytes are not ed, a manual differential will be performed. Radha Gran Abs 0.06 (H) 0.00 - 0.04 x10(3)/[facility] LABORATORY Specimen Anatomical Collection Method Collection Time Receive d Time (Source) Location / / Volume Laterality Blood 10/12/2021 12:51 10/12/2021 1:01 AM EDT AM EDT Resulting Agency Comment Spec In Lab Isaías Valladares MD HEMATOLOGY ORDERABLES Performing Organization Address City/State/ZIP Code Phon e Number [place] [id number] HOSPITAL LABORATORY Drive (ABNORMAL) Hemogram (10/12/2021 12:51 AM EDT) Analysis Performed At Patho logist Time Signature WBC 13.5 (H) 4.0 - 9.5 [facility] x10(3)/[facility] LABORATORY RBC 4.05 4.00 - [facility] x10(6)/[facility] LABORATORY Hemoglobin 13.4 11.7 - [facility] 15.5 g/dL [facility] LABORATORY Hematocrit 38.4 35.7 - [facility] 45.8 % [facility] LAB[facility]ATORY MCV 94.8 (H) 82.6 - [facility] LABORATORY MCH 33.1 (H) 27.1 - [facility] 32.0 pg [facility] LABORATORY MCHC 34.9 31.7 - [facility] g/dL [facility] LAB[facility]ATORY Platelets 156 145 - 357 [facility] x10(3)/[facility] LABORATORY RDWSD 45.5 37.0 - [facility] 46[facility]0 [facility] LABORATORY RDWCV 13.1 11.5 - [facility] 14.1 % [facility] LABORATORY MPV 9.7 7.6 - 12.9 [facility] LABORATORY nRBC % Auto 0.0 % [facility] LABORATORY nRBC Abs Auto 0.000 0.000 - [facility] 0.000 [facility] x10(3)/[facility] LABORATORY Specimen Anatomical Collection Method Collection Time Receive d Time (Source) Location / / Volume Laterality Blood 10/12/2021 12:51 10/12/2021 1:01 AM EDT AM EDT Resulting Agency Comment Spec In Lab Isaías Valladares MD HEMATOLOGY ORDERABLES Performing Organization Address City/State/ZIP [place] [address] (ABNORMAL) Basic Metabolic Panel (non-fasting) (10/12/2021 12:51 AM EDT) P athologist Signature Glucose Lvl 167 65 - 199 [facility] mg/dL [facility] LABORATORY Comment: Diabetes: >=200 mg/dL plus symp toms BUN 19 (H) 8 - 18 mg/dL [facility] LABORATORY Creatinine 0.68 (L) 0.70 - 1.20 mg/dL [facility] LABORATORY Sodium 137 135 - 145 mmol/L [facility] LABORATORY Potassium 4.3 3.5 - 5.0 mmol/L [facility] LABORATORY Comment: Please note: ??Patients with WBC >100,00 0 may have falsely elevated Potassium levels. ??For accurate Potassium quantif ication in these patients send serum separator tube (gold top) for subsequent determinations. ??Contact the Clinical Chemistry Laboratory if there are any qu estions. Chloride 103 98 - 107 mmol/L [facility] LABORATORY CO2 24 22 - 31 mmol/L [facility] LABORATORY Anion Gap 10 5 - 15 mmol/L [facility] LABORATORY Calcium 8.9 8.5 - 10.5 mg/dL [facility] LABORATORY Estimated GFR 95 >=60 mL/min/1.73 m?? [facility] LABORATORY Comment: This patient's estimated [...] Organization Address City/State/ZIP [place] [address] Phosphorus (10/12/2021 12:51 AM EDT) P athologist Signature Phosphorus 2.7 2.5 - 4.5 [facility] mg/dL [facility] LABORATORY Specimen Anatomical Collection Method Collection Time Receive d Time (Source) Location / / Volume Laterality Blood 10/12/2021 12:51 10/12/2021 1:01 AM EDT AM EDT Resulting Agency Comment Spec In Lab Kody Singh MD CHEMISTRY ORDERABLES Performing Organization Address City/State/ZIP Code Phon e Number [address] Magnesium (10/12/2021 12:51 AM EDT) P athologist Signature Magnesium 0.87 0.69 - 1.07 [facility] mmol/L [facility] LABORATORY Specimen Anatomical Collection Method Collection Time Receive d Time (Source) Location / / Volume Laterality Blood 10/12/2021 12:51 10/12/2021 1:01 AM EDT AM EDT Resulting Agency Comment Spec In Lab Kody Singh MD CHEMISTRY ORDERABLES Performing Organization Address City/State/ZIP Code Phon e Number [address] (ABNORMAL) Differential, Automated (10/11/2021 4:49 AM EDT) Patholo gist Method Time Signature Neutrophils % 93.6 % [facility] LABORATORY Neutr Abs (ANC) 15.11 (H) 1.70 - [facility] 6.10 [facility] x10(3)/[facility] LABORATORY Lymphocytes % 2.8 % [facility] LABORATORY Lymphocytes Abs 0.4 (L) 0.9 - 3.2 [facility] x10(3)/[facility] LABORATORY Monocytes % 2.8 % [facility] LABORATORY Monocyte Abs 0.4 0.3 - 0.9 [facility] x10(3)/[facility] LABORATORY Eosinophils % 0.0 % [facility] LABORATORY Eosinophils Abs 0.0 0.0 - 0.4 [facility] x10(3)/[facility] LABORATORY Basophils % 0.1 % [facility] LABORATORY Basophils Abs 0.0 0.0 - 0.1 [facility] x10(3)/[facility] LABORATORY Immature Gran % 0.70 % [facility] LABORATORY Comment: Immature granulocytes(IG's)percentage an d absolute count will include metamyelocytes, myelocytes, and promyelo cytes. Blood smears from CBCs yielding IG's will be scanned manually for concor dance. If this scan disagrees with the automated IG or if promyelocytes are not ed, a manual differential will be performed. Radha Gran Abs 0.12 (H) 0.00 - 0.04 x10(3)/[facility] LABORATORY Specimen Anatomical Collection Method Collection Time Receive d Time (Source) Location / / Volume Laterality Blood 10/11/2021 4:49 AM 4:55 EDT AM EDT Resulting Agency Comment Spec In Lab Isaías Valladares MD HEMATOLOGY ORDERABLES Performing Organization Address City/State/ZIP [place] [address] (ABNORMAL) Hemogram (10/11/2021 4:49 AM EDT) Analysis Performed At Patho logist Time Signature WBC 16.1 (H) 4.0 - 9.5 [facility] x10(3)/[facility] LABORATORY RBC 4.11 4.00 - [facility] 5.21 [facility] x10(6)/[facility] LABORATORY Hemoglobin 13.5 11.7 - [facility] g/dL [facility] LABORATORY Hematocrit 39.1 35.7 - [facility] 45.8 % [facility] LABORATORY MCV 95.1 (H) 82.6 - [facility] 94.4 [facility] LABORATORY MCH 32.8 (H) 27.1 - [facility] 32.0 pg [facility] LABORATORY MCHC 34.5 31.7 - [facility] g/dL [facility] LABORATORY Platelets 163 145 - 357 [facility] x10(3)/[facility] LABORATORY RDWSD 45.6 37.0 - [facility] 46.0 [facility] LABORATORY RDWCV 13.0 11.5 - [facility] 14.1 % [facility] LABORATORY MPV 9.8 7.6 - 12.9 [facility] LABORATORY nRBC % Auto 0.0 % [facility] LABORATORY nRBC Abs Auto 0.000 0.000 - [facility] 0.000 [facility] x10(3)/[facility] LABORATORY Specimen Anatomical Collection Method Collection Time Receive d Time (Source) Location / / Volume Laterality Blood 10/11/2021 4:49 AM 2 4:55 EDT AM EDT Resulting Agency Comment Spec In Lab Isaías Valladares MD HEMATOLOGY ORDERABLES Performing Organization Address City/[facility]/ZIP Code Phon e Number [address] Magnesium (10/11/2021 4:49 AM EDT) athologist Signature Magnesium 0.84 0.69 - 1.07 [facility] mmol/L [facility] LABORATORY Specimen Anatomical Collection Method Collection Time Receive d Time (Source) Location / / Volume Laterality Blood 10/11/2021 4:49 AM 2 4:55 EDT AM EDT Resulting Agency Comment Spec In Lab Kody Singh MD CHEMISTRY ORDERABLES Performing Organization Address City/State/ZIP Code Phon e Number [address] (ABNORMAL) Basic Metabolic Panel (non-fasting) (10/10/2021 2:48 AM EDT) athologist Signature Glucose Lvl 142 65 - 199 [facility] mg/dL [facility] LABORATORY Comment: Diabetes: >=200 mg/dL plus symp toms BUN 14 8 - 18 mg/dL [facility] LABORATORY Creatinine 0.61 (L) 0.70 - 1.20 mg/dL [facility] LABORATORY Sodium 138 135 - 145 mmol/L [facility] LABORATORY Potassium 3.9 3.5 - 5.0 mmol/L [facility] LABORATORY Comment: Please note: ??Patients with WBC >100,00 0 may have falsely elevated Potassium levels. ??For accurate Potassium quantif ication in these patients send serum separator tube (gold top) for subsequent determinations. ??Contact the Clinical Chemistry Laboratory if there are any qu estions. Chloride 102 98 - 107 mmol/L [facility] LABORATORY CO2 25 22 - 31 mmol/L [facility] LABORATORY Anion Gap 11 5 - 15 mmol/L [facility] LABORATORY Calcium 9.3 8.5 - 10.5 mg/dL [facility] LABORATORY Estimated GFR 97 >=60 mL/min/1.73 m?? [facility] LABORATORY Comment: This patient's estimated [...] Organization Address City/State/ZIP Code Phon e Number [address] Phosphorus (10/10/2021 2:48 AM EDT) P athologist Signature Phosphorus 3.4 2.5 - 4.5 [facility] mg/dL [facility] LABORATORY Specimen Anatomical Collection Method Collection Time Receive d Time (Source) Location / / Volume Laterality Blood 10/10/2021 2:48 AM 2 2:53 EDT AM EDT Resulting Agency Comment Spec In Lab Kody Singh MD CHEMISTRY ORDERABLES Performing Organization Address City/[facility]/ZIP Code Phon e Number [address] (ABNORMAL) Differential, Automated (10/10/2021 1:46 AM EDT) Patholo gist Method Time Signature Neutrophils % 93.3 % [facility] LABORATORY Neutr Abs (ANC) 11.53 (H) 1.70 - [facility] 6.10 [facility] x10(3)/[facility] LABORATORY Lymphocytes % 3.7 % [facility] LABORATORY Lymphocytes Abs 0.5 (L) 0.9 - 3.2 [facility] x10(3)/[facility] LABORATORY Monocytes % 1.7 % [facility] LABORATORY Monocyte Abs 0.2 (L) 0.3 - 0.9 [facility] x10(3)/[facility] LABORATORY Eosinophils % 0.0 % [facility] LABORATORY Eosinophils Abs 0.0 0.0 - 0.4 [facility] x10(3)/[facility] LABORATORY Basophils % 0.2 % [facility] LABORATORY Basophils Abs 0.0 0.0 - 0.1 [facility] x10(3)/[facility] LABORATORY Immature Gran % 1.10 % [facility] LABORATORY Comment: Immature granulocytes(IG's)percentage an d absolute count will include metamyelocytes, myelocytes, and promyelo cytes. Blood smears from CBCs yielding IG's will be scanned manually for concor dance. If this scan disagrees with the automated IG or if promyelocytes are not ed, a manual differential will be performed. Radha Gran Abs 0.13 (H) 0.00 - 0.04 x10(3)/[facility] LABORATORY Specimen Anatomical Collection Method Collection Time Receive d Time (Source) Location / / Volume Laterality Blood 10/10/2021 1:46 AM 2 1:53 EDT AM EDT Resulting Agency Comment Spec In Lab Serenity Wisdom APRN HEMATOLOGY ORDERABLES Performing Organization Address City/State/ZIP [place] [address] (ABNORMAL) Hemogram (10/10/2021 1:46 AM EDT) Analysis Performed At Patho logist Time Signature WBC 12.4 (H) 4.0 - 9.5 [facility] x10(3)/[facility] LABORATORY RBC 4.47 4.00 - [facility] 5.21 [facility] x10(6)/[facility] LABORATORY Hemoglobin 14.5 11.7 - [facility] g/dL [facility] LABORATORY Hematocrit 42.1 35.7 - [facility] 45.8 % [facility]AT[facility] MCV 94.2 82.6 - [facility] LABORATORY MCH 32.4 (H) 27.1 - [facility] 32.0 pg [facility] LAB[facility]ATORY MCHC 34.4 31.7 - [facility] g/dL [facility] LABORATORY Platelets 165 145 - 357 [facility] x10(3)/[facility] LABORATORY RDWSD 44.7 37.0 - [facility].0 [facility] LABORATORY RDWCV 13.1 11.5 - [facility] 14.1 % [facility] LABORATORY MPV 10.2 7.6 - 12.9 [facility] LABORATORY nRBC % Auto 0.0 % [facility] LABORATORY nRBC Abs Auto 0.000 0.000 - [facility] 0.000 [facility] x10(3)/[facility] LABORATORY Specimen Anatomical Collection Method Collection Time Receive d Time (Source) Location / / Volume Laterality Blood 10/10/2021 1:46 AM 2 1:53 EDT AM EDT Resulting Agency Comment Spec In Lab Serenity Wisdom APRN HEMATOLOGY ORDERABLES Performing Organization Address City/State/ZIP [place] [address] (ABNORMAL) Basic Metabolic Panel (non-fasting) (10/10/2021 1:46 AM EDT) P athologist Signature Glucose Lvl 138 65 - 199 [facility] mg/dL [facility] LABORATORY Comment: Diabetes: >=200 mg/dL plus symp toms BUN 14 8 - 18 mg/dL [facility] LABORATORY Creatinine 0.67 (L) 0.70 - 1.20 mg/dL [facility] LABORATORY Sodium 135 135 - 145 mmol/L [facility] LABORATORY Potassium Not Perf 3.5 - 5.0 [facility] LABORATORY Comment: Unable to quantitate due to sample hemol ysis. ??Sample redraw suggested. Called by: bm, Read back by: alberto lopez no, Date/Time:10/10/21 02:33. Please note: ??Patients with WBC >100,00 0 may have falsely elevated Potassium levels. ??For accurate Potassium quantif ication in these patients send serum separator tube (gold top) for subsequent determinations. ??Contact the Clinical Chemistry Laboratory if there are any qu estions. Chloride 100 98 - 107 mmol/L [facility] LABORATORY CO2 23 22 - 31 mmol/L [facility] LABORATORY Anion Gap 12 5 - 15 mmol/L [facility] LABORATORY Calcium 9.7 8.5 - 10.5 mg/dL [facility] LABORATORY Estimated GFR 95 >=60 mL/min/1.73 m?? [facility] LABORATORY Comment: This patient's estimated [...] Organization Address City/State/ZIP [place] [address] Magnesium (10/10/2021 1:46 AM EDT) P athologist Signature Magnesium 0.85 0.69 - 1.07 [facility] mmol/L [facility] LABORATORY Specimen Anatomical Collection Method Collection Time Receive d Time (Source) Location / / Volume Laterality Blood 10/10/2021 1:46 AM 1:53 EDT AM EDT Resulting Agency Comment Spec In Lab Kody Singh MD CHEMISTRY ORDERABLES Performing Organization Address City/State/ZIP [place] [address] MRI Brain wwo Contrast [...] who have questions please contact the health rn wound care that requested your imaging first. ? 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 Electronically signed by: Stefan odonnell MD, [facility] ([phone]), at 10/10/2021 9:42 AM Kody Singh MD IMG MRI ORDERABLES Type and Screen Validity (10/09/2021 6:20 PM EDT) [facility] Method Time Signature T&S only valid [facility] LABORATORY Comment: This Type and Screen result is only valid at the [facility] Specimen Anatomical Collection Method Collection Time Receive d Time (Source) Location / / Volume Laterality Blood 10/09/2021 6:20 PM 2 6:30 EDT PM EDT Resulting Agency Comment Spec In Lab Serenity Wisdom APRN BLOOD BANK ORDERABLES Performing Organization Address City/State/ZIP [place] [address] ABORH Recheck Status (10/09/2021 6:20 PM EDT) [facility] Method Time Signature ABORH Recheck Order Placed [facility] LABORATORY ABORH Type Complete [facility] LABORATORY Specimen Anatomical Collection Method Collection Time Receive d Time (Source) Location / / Volume Laterality Blood 10/09/2021 6:20 PM 2 6:30 EDT PM EDT Resulting Agency Comment Spec In Lab Serenity Wisdom APRN BLOOD BANK ORDERABLES Performing Organization Address City/[facility]/[place] [address] Antibody screen (10/09/2021 6:20 PM EDT) [facility] Method Time Signature Ab Screen Negative [facility] LABORATORY Expires at 10/12/2021 [facility] [id number] on: [facility] LABORATORY Specimen Anatomical Collection Method Collection Time Receive d Time (Source) Location / / Volume Laterality Blood 10/09/2021 6:20 PM 2 6:30 EDT PM EDT Resulting Agency Comment Spec In Lab Serenity Wisdom APRN BLOOD BANK ORDERABLES Performing Organization Address City/[facility]/ZIP Code Phon e Number [address] ABO/Rh Typing (10/09/2021 6:20 PM EDT) P athologist Signature ABORh Type A Pos [facility] LABORATORY Specimen Anatomical Collection Method Collection Time Receive d Time (Source) Location / / Volume Laterality Blood 10/09/2021 6:20 PM 2 6:30 EDT PM EDT Resulting Agency Comment Spec In Lab Serenity Wisdom APRN BLOOD BANK ORDERABLES Performing Organization Address [facility]/ZIP Code Phon e Number [address] APTT (10/09/2021 6:16 PM EDT) P athologist Signature PTT 25 25 - 37 sec [facility] LABORATORY Comment: The PTT is [...] Resulting Agency Comment Spec In Lab Serenity Tylor Young PRESIDENT ERGONOMIC CONSULTING HEMATOLOGY ORDERABLES Performing Organization Address City/[facility]/ZIP [place] [address] (ABNORMAL) Prothrombin Time (10/09/2021 6:16 PM EDT) P athologist Signature PT 13.5 (H) 9.4 - 12.5 [facility] sec [facility] LABORATORY INR 1.2 [facility] LABORATORY Comment: An INR <2.0 [...] Agency Comment Spec In Lab Serenity Wisdom PRESIDENT ERGONOMIC CONSULTING HEMATOLOGY ORDERABLES Performing Organization Address City/[facility]/ZIP [place] [address] (ABNORMAL) Hemogram (10/09/2021 6:16 PM EDT) Analysis Performed At Patho logist Time Signature WBC 7.6 4.0 - 9.5 [facility] x10(3)/[facility] LABORATORY RBC 4.20 4.00 - [facility] 5.21 [facility] x10(6)/[facility] LABORATORY Hemoglobin 13.7 11.7 - [facility] 15.5 g/dL [facility] LABORATORY Hematocrit 39.7 35.7 - [facility] 45.8 % [facility] LABORATORY MCV 94.5 (H) 82.6 - [facility] 94.4 fL [facility] LABORATORY MCH 32.6 (H) 27.1 - [facility] 32.0 pg [facility] LABORATORY MCHC 34.5 31.7 - [facility] 35.0 g/dL [facility] LABORATORY Platelets 164 145 - 357 [facility] x10(3)/[facility] LABORATORY RDWSD 44.9 37.0 - [facility] 46.0 [facility] LABORATORY RDWCV 12.9 11.5 - [facility] 14.1 % [facility] LABORATORY MPV 9.5 7.6 - 12.9 [facility] LABORATORY nRBC % Auto 0.0 % [facility] LABORATORY nRBC Abs Auto 0.000 0.000 - [facility] 0.000 [facility] x10(3)/[facility] LABORATORY Specimen Anatomical Collection Method Collection Time Receive d Time (Source) Location / / Volume Laterality Blood 10/09/2021 6:16 PM 6:31 EDT PM EDT Resulting Agency Comment Spec In Lab Serenity Wisdom APRN HEMATOLOGY ORDERABLES Performing Organization Address City/State/ZIP [place] [address] Troponin (10/09/2021 6:16 PM EDT) P athologist Signature Troponin-T <0.01 0.00 - 0.00 [facility]/mL [facility] LAB[facility]ORY Comment: The 99th percentile for Troponin T is le ss than 0.01 ng/mL, any detectable cTnT concentration using this assay should be considered elevated. According to the third universal definit ion of myocardial infarction the following criteria with a clinical prese ntation consistent with acute myocardial ischemia meets the diagnosis for a myocardial infarction (MA). Detection of a rise and/or fall of [...] additional sample may be indicated. Reference: Third [place] Definition of Myocardial Infarction. Journal of the [place] [employer] 2012;60:1581-98 Specimen Anatomical Collection Method Collection Time Receive d Time (Source) Location / / Volume Laterality Blood 10/09/2021 6:16 PM 2 6:31 EDT PM EDT Resulting Agency Comment Spec In Lab Serenity Wisdom APRN CHEMISTRY ORDERABLES Performing Organization Address City/[facility]/[place] [address] Electrolytes panel (10/09/2021 6:16 PM EDT) P athologist Signature Sodium 135 135 - 145 [facility] mmol/L [facility] LABORATORY Potassium 4.0 3.5 - 5.0 [facility] mmol/L [facility] LABORATORY Comment: Please note: ??Patients with WBC >100,00 0 may have falsely elevated Potassium levels. ??For accurate Potassium quantif ication in these patients send serum separator tube (gold top) for subsequent determinations. ??Contact the Clinical Chemistry Laboratory if there are any qu estions. Chloride 100 98 - 107 mmol/L [facility] LABORATORY CO2 24 22 - 31 mmol/L [facility] LABORATORY Anion Gap 11 5 - 15 mmol/L [facility] LABORATORY Specimen Anatomical Collection Method Collection Time Receive d Time (Source) Location / / Volume Laterality Blood 10/09/2021 6:16 PM 2 6:31 EDT PM EDT Resulting Agency Comment Spec In Lab Serenity Wisdom APRN CHEMISTRY ORDERABLES Performing Organization Address City/[facility]/[place] [address] POCT Glucose (10/09/2021 5:27 PM EDT) P athologist Signature POC Glucose 146 65 - 199 [facility] mg/dL [facility] LABORATORY Comment: Supplemental ranges: <140 mg/dL before meals <180 mg/dL all other times of the day Specimen Anatomical Collection Method Collection Time Receive d Time (Source) Location / / Volume Laterality Blood 10/09/2021 5:27 PM 2 5:27 EDT PM EDT Kody Singh MD POINT OF CARE TEST ORDERABLE S Performing Organization Address City/State/ZIP Code Phon e Number [place] [id number]OS[address] LAB[address]ORY [address] documented in this encounter Visit Diagnoses Not on filedocumented in this encounter Admitting Diagnoses Diagnosis Brain [...] Given 10/11/2021 9:00 AM EDT 500 mg BUpivacaine-EPINEPHrine Given 10/13/2021 4:14 PM 1 mL 19- Surgical Site (Marcaine-epiNEPHrine) 0.25 EDT %-1:200,000 injection ONCE PRN, Starting on Tue10/13/21 at 1614, Until Tue10/14/21 at 1507, Intra-Operative (Intra-Procedure), Routine calcium carbonate (Tums) chewable tablet 500 Given [...] Given 10/13/2021 8:22 AM EDT 100 mg gelatin adsorbable (Gelfoam) Given 10/13/2021 4:15 PM EDT 1 each 19- Surgical Site sponge ONCE PRN, Starting on Tue10/13/21 at 1615, Until Tue10/14/21 at 1507, Intra-Operative (Intra-Procedure) levETIRAcetam (Keppra) tablet 500 mg Given 10/14/2021 9:21 AM EDT 500 mg 500 mg, Oral, 2 TIMES DAILY, First dose on Tue10/09/21 at 2100, Until Discontinued, Routine Given 10/13/2021 8:46 PM EDT 500 mg Given 10/13/2021 8:22 AM EDT 500 mg levothyroxine (Synthroid) tablet 100 mcg Given 10/14/2021 5:49 AM EDT 100 mcg 100 mcg, Oral, EVERY MORNING, First dose (after last modification) on Tue10/11/21 at 0600, Until Discontinued, Routine Given 10/13/2021 5:20 AM EDT 100 mcg Given 10/12/2021 5:45 AM EDT 100 mcg pantoprazole EC (Protonix) tablet 20 mg Given [...] instructions for Potassium Protocol in online p olicies. potassium chloride 10 mEq in sterile alton er 100 mL infusion 10 mEq, Intravenous, EVERY 1 HOUR PRN, S tarting on 10/10/21 at 0254, Until Tue10/14/21 at 1507, Administer over 60 Minutes, hypokalemi a, Administer 4 times 10 meq/100 mL bags, each over 30-60 minutes for serum potassium (mMol/L) of 3.3 - 3.8 See instructions for Potassium Protocol in online p olicies. potassium chloride 10 mEq in New Bag [...] Potassium Protocol in online policies. sodium chloride tablet 1 g Given 10/14/2021 9:22 AM EDT 1 g 1 g, Oral, 3 TIMES DAILY, First dose on Tue10/13/21 at 1730, Until Discontinued, STAT Given 10/13/2021 8:46 PM EDT 1 g Given 10/13/2021 6:56 PM EDT 1 g thrombin (bovine) Given 10/13/2021 4:15 PM 5,000 Units 19- Surgical Site (Thrombin-Jmi) solution EDT ONCE PRN, Starting on Tue10/13/21 at 1615, Until Tue10/14/21 at 1507, Intra-Operative (Intra-Procedure) documented in this encounter Active and Recently Administered Medications Times are shown in EDT. Scheduled Medication Order 10/12/2021 10/13/2021 10/14/2021 ascorbic acid (Vitamin C) (Vitamin C) tablet 500 mg 0822 (Given - Provider: Anu Morris RN)152 ([facility] Hold - Provider: Admin Adt - Reason: Transfer to a Procedural area)1850 ([facility] Unhold - Provider: Admin Adt) 0921 (Given - Provider: Steven Serrato RN) 500 mg, Oral, EVERY OTHER DAY, First dos e on Tue10/09/21 at 1845, Until Discontinued, Routine calcium carbonate (Tums) chewable tablet 500 mg 0842 ( Given - Provider: Anu Morris RN) 0822 (Given - Provider: Anu Morris RN)152 ([facility] Hold - Provider: Admin Adt - Reason: Transfer to a Procedural area)1850 ([facility] Unhold - Provider: Admin Adt) 0922 (Given - Provider: Steven bar RN) 500 mg, Oral, DAILY, First dose on Tue at 1845, Until Discontinued, Routine calcium citrate (Calcitrate) tablet 1,900 mg 0842 (Giv en - Provider: Anu Morris RN) 0822 (Given - Provider: Anu Morris RN)152 ([facility] Hold - Provider: Admin Adt - Reason: Transfer to a Procedural area)1850 ([facility] Unhold - Provider: Admin Adt) 0927 (Given [...] Bautista RN)1200 (Given - Provider: Anu Morris RN)1523 ([facility] Hold - Provider: Admin Adt - Reason: Transfer to a Procedural area)1800 (Automatically Held - Provider: Admin Adt)185 ([facility] Unhold - Provider: Admin Adt) 0548 (Given - Provider: Harvey Bautista RN)1137 (Given - Provider: Steven Serrato RN) 4 mg, Oral, EVERY 6 HOURS SCHEDULED, Fir st dose on Tue10/09/21 at 1845, Until Discontinued, Routine 2342 (Given - Provider: Harvey Bautista RN) docusate sodium (Colace) capsule 100 mg 0842 (Given - Provider: Anu Morris RN)2049 (Given - Provider: Harvey Bautista RN) 0822 (Given - Provider: Anu Morris RN)1523 ([facility] Hold - Provider: Admin Adt - Reason: Transfer to a Procedural area)1850 ([facility] Unhold - Provider: Admin Adt)2045 (Given - [...] 500 mg 0841 (Given - Pro vider: Aun Morris RN)2049 (Given - Provider: Harvey Bautista RN) 0822 (Given - Provider: Anu Morris RN)152 ([facility] Hold - Provider: Admin Adt - Reason: Transfer to a Procedural area)185 ([facility] Unhold - Provider: Admin Adt)2045 (Given - Provider: Harvey Bautista RN) 0921 (Given - Provider: Steven bar RN) 500 mg, Oral, 2 TIMES DAILY, First dose on Tue10/09/21 at 2100, Until Discontinued, Routine levothyroxine (Synthroid) tablet 100 mcg 0545 (Given - Provider: Harvey Bautista RN) 0520 (Given - Provider: Harvey Bautista RN)1523 ([facility] Hold - Provider: Admin Adt - Reason: Transfer to a Procedural area)1850 ([facility] Unhold - Provider: Admin Adt) 0549 (Given [...] area)1850 ([facility] Unhold - Provider: Admin Adt) 09 (Given - Provider: Steven bar RN) 20 mg, Oral, DAILY, First dose on 03/31 at 1845, Until Discontinued, DO NOT CRUSH OR OPEN, Routine polyethylene glycoL (Miralax) packet 17 g 0841 (Given - Provider: Anu Morris RN) 0900 (Not Given - Provider: Anu Morris RN - Reason: Order parameters not met)152 ([facility] Hold - Provider: Admin Adt - Reason: Transfer to a Procedural area)1850 ([facility] Unhold - Provider: Admin Adt) 0921 (Given - Provider: Steven Serrato, LIZABETH) 17 g, Oral, DAILY, First dose on 10/12 at 0900, Until Discontinued, Routine sodium chloride tablet 1 g 1855 (Given - Provider: Anu Morris RN)2045 (Given - Provider: Harvey Bautista RN) 0922 [...] - Reason: Transfer to a Procedural area)1851 ([facility] Unhold - Provider: Admin Adt)1852 (Stopped - Provider: Anu Morris RN) PRN Medication Order 10/12/2021 10/13/2021 10/14/2021 acetaminophen (Tylenol) tablet 650 mg 10 51 (Given - Provider: Anu Morris RN)1523 ([facility] Hold - Provider: Admin Adt - Reason: Transfer to a Procedural area)1806 ([facility] Unhold - Provider: Amber Fleming RN)1808 (Given - Provider: Amber Fleming RN) 1243 (Given - Provider: Steven bar [...] 100 mL infusion(L inked Group 1) 1522 ([facility] Hold - Provider: Admin Adt - Reason: Transfer to a Procedural area)1850 ([facility] Unhold - Provider: Admin Adt) 10 mEq, [...] 100 mL infusion(L inked Group 1) 1522 ([facility] Hold - Provider: Admin Adt - Reason: Transfer to a Procedural area)1850 ([facility] Unhold - Provider: Admin Adt) 10 mEq, [...] 100 mL infusion(L inked Group 1) 1522 ([facility] Hold - Provider: Admin Adt - Reason: Transfer to a Procedural area)1850 ([facility] Unhold - Provider: Admin Adt) 10 mEq, Intravenous, EVERY 1 HOUR PRN, S tarting on 10/10/21 at 0254, Until Tue10/14/21 at 1507, Administer over 60 Minutes, hypokalemia, Administer Administer 6 times 10 meq/100 mL bags, each over 30-6 0 minutes for serum potassium (mMol/L) o f 2.8 - 3.2 See instructions for Potassium Protocol in online policies. thrombin (bovine) (Thrombin-Jmi) solution (CANCELED) 1615 (Given - Provider: Kody Singh MD - [...] policies.
documented in this encounter Care Teams Guest Relations Executive Relationship Specialty Start Date End Date Viki Elaine PA PCP - General Internal Medicine 12/04/[address] [place] [address] [place] [address] documented as of this encounter
--- OUTSIDE RECORDS SUMMARY | 2021-12-04 13:55 | XMS_ITS | Encounter Summary ---
:1955 [place] [address] Care Team Providers Name Role Phone Viki Elaine Primary Care Provider [phone] Reason for Visit Auth/Cert Specialty Diagnoses / Procedures Referred By Contact Refer red To Contact Diagnoses Brain tumor Increased confusion Real Singh MD [facility] [place] [address] Referral ID Status Reason Start Date Expiration Date Visits Requ ested Visits Authorized [id number] 1 1 Encounter Details Date Type Department Care Team Description 10/13/2021 Anesthesia Event Main Operating Room Flores Hogan MD [place] [id number] [phone] Anesthesia Record Procedure Summary Procedure Name Responsible Anesthesia Start Anesthesia Stop Time Anesthesiologist Time @STEREOTACTIC BX, Flores Zhou MD 10/13/21 1523 10/13/21 16 48 ASP, OR EXC.-INTRACRANIAL LESION (WRVU 19.83) (Left Head) Events Date Time Event Comment 10/13/2021 1414 1523 AN Verify 1523 Start 1523 An Start Data 1533 An Induction 1535 An Intubation 1539 Anesthesia Ready 1551 Procedure Start 1642 Extubation/LMA Out 1642 an stop data 1648 Recovery or ICU Handoff Patient care was transferred to the destination unit staff after review of the patient's medica l history, current anesthetic/surgi kleber status and plan, according to the Provider Handoff Checklist. 1648 Stop Name Total fentaNYL 100 mcg Propofol 190 mg Rocuronium 50 mg Ondansetron 8 mg Dexamethasone 4 mg Propofol INF 247.79 mg ceFAZolin 2 g Sugammadex 200 mg Dexmedetomidine 8 mcg Glycopyrrolate 0.4 mg Lactated Ringers 500 mL Agents Name O2 Air N2O Sevoflurane (et) Blood No blood administrations on file. Lines, Drains, and Airways Type Details Placement Removal Incision 10/13/21; 1551; Left; 10/13/21 1551 by head Padma Jaime RN PIV 10/09/21; 1725 (Present 10/09/21 1725 by 2 1546 by on arrival); median Letty Rea RN Grua, Shayla Travis MD cubital vein (antecubital fossa), right; 22 gauge; Present on arrival; 10/13/21; 1546 External Catheter 10/09/21; 1999; 10/14/21; 10/09/211999 by Franklin teresa, 10/14/21 1148 by 1148 LIZABETH Miranda Paul Mic hael B, RN PIV 10/10/21; 0506; cephalic 10/10/21 0506 by 1148 by vein (lateral side of Ninfa Lucio RN Sote lo, Paul Michael arm), left; LIZABETH Mcguire rwkl-owu-bcpana catheter system; Ultrasound Guidance; Yes - US guidance used but Image NOT saved; 22 gauge, 1 in length, 3/4 in length; ninfa lucio rn vas; distraction, tolerated well, appears comfortable; 1; 10/14/21; 1148 ETT Mask Ventilation: Easy 10/13/21 1535 by Shakila, 1642 by (1); ETT Type: Cuffed, MD Shakila Parham, Meir Travis MD Oral; ETT Size: 7 mm; Guan Blade: 2; Notes: Asleep, Pre-O2, Stylette; Attempts: 1; Laryngoscopy Grade: 1; ETT Placement Verified By: Auscultation, Capnometry; Secured at Teeth: 22 cm; Inserted by: md shakila PIV 10/13/21; 1547; cephalic 10/13/21 1547 by Shakila, 10/14/21 1148 by vein (lateral side of MD Ama Parham Pa ul Michael arm), right; Shayla RN lmxe-osb-lymklr catheter system; Anatomical Landmarks; 20 gauge; 10/14/21; 1148 documented in this encounter Social History Tobacco Use Types Packs/Day Years [...] on file documented as of this encounter OR Notes Anesthesia Postprocedure Evaluation - Jesu Daniels MD - 10/13/2021 4:51 PM EDT Department of Anesthesiology Post-procedure Note Patient: Lorin Cardona Procedure Summary Date: 10/13/21 Room / Location: [facility] OR [facility] MAIN OR Anesthesia Start: 1523 Anesthesia Stop: Procedure: @STEREOTACTIC BX, ASP, OR EXC.-INTRACRANIAL LESION (WRVU 19.83) (Left Head) Diagnosis: (Brain tumor) Surgeons: Real Singh MD Responsible Provider: Flores Zhou MD Anesthesia Type: general ASA Status: 3 All Anesthesia Providers: Anesthesiologist: Flores Zhou MD Cash Analyst: Jesu Daniels MD Vitals Value Taken Time BP 127/71 10/13/21 1645 Temp 36 ??C (96.8 ??F) 10/13/21 1644 Pulse 71 10/13/21 1650 Resp 17 10/13/21 1650 SpO2 100 % 10/13/21 1650 Pain Level Vitals shown include unvalidated device data. Patient Location: PACU/[facility] Level of Consciousness: Conscious but Sleepy Pain Management: Satisfactory Analgesia PONV: None Cardiovascular Status: At Baseline Respiratory Status: At Baseline Postoperative Fluid Status: Possible Anesthetic Complications: NONE apparent at time of evaluation Final Primary Anesthesia Type: General (The anesthetic type performed was the same as planned.) Comments: Anesthesia Preprocedure Evaluation - Flores Zhou MD - 10/13/2021 1:44 PM EDT Pre-Anesthesia Evaluation for: Lorin Cardona a 66 y.o. female. Procedure(s): @STEREOTACTIC BX, ASP, OR EXC.-INTRACRANIAL LESION (WRVU 19.83) Patient Active Problem List Diagnosis Date Noted ??? Brain tumor 10/09/2021 ??? Thyroid cancer 12/15/2020 Past Medical History: Diagnosis Date ??? GERD (gastroesophageal reflux disease) ??? Kidney stones ??? Osteopenia ??? Postoperative hypothyroidism ??? Thyroid cancer Past Surgical History: Procedure Laterality Date ??? PRG EMG, LARYNX N/A 01/07/2021 FACIAL NERVE MONITORING, SETUP LARYNGEAL (WRVU 1.57) performed by Fabienne De Dios MD at [facility] MAIN OR ??? PRO REMOVAL NODES, NECK, CERV MOD RAD Left 01/07/2021 @CERVICAL LYMPHADENECTOMY (MODIFIED RADICAL NECK DISSECTION) (WRVU 23.95) performed by Fabienne De Dios MD at [facility] MAIN OR ??? PRO THYROIDECTOMY, MALIG, LTD NECK SURG Bilateral 01/07/2021 THYROIDECTOMY, FOR MALIGNANCY, LIMITED NECK DISSECTION (WRVU 22.01) performed by Toyn De Dios MD at [facility] MAIN OR Social History Tobacco Use ??? Smoking status: Never Smoker ??? Smokeless tobacco: Never Used Substance Use Topics ??? Alcohol use: Not Currently Comment: rarely Social History Substance and Sexual Activity Drug Use Never No Known Allergies Medications: MAR and/or home medications have been reviewed. Physical Exam: Preprocedure Vitals Current as of 10/13/21 1344 BP: 107/56 Pulse: 48 Resp: 14 SpO2: 94 Temp: Height: 161.3 cm (5' 3.5) (10/09/21) Weight: 69.8 kg (153 lb 14.1 oz) (10/10/21) BMI: 26.83 IBW: 53.6 kg (118 lb 1.2 oz) Last edited 10/13/21 1200 by SW Airway Assessment: Mallampati: I TM distance: >3 FB Neck ROM: full Cardiovascular Assessment: Rhythm: regular Rate: normal Pulmonary Assessment: unlabored breathing Dental Assessment: - normal exam Misc Assessment: IV access: Peripheral line Last Filed Perioperative Cognitive Screening Value Time User 4AT TOTAL Score: 0 01/07/2021 2:15 PM Renetta Treadwell RN CFS Frailty Score: 2 12/04/2020 9:33 AM Alejandra Reyes LNA MiniCOG Total Score: 5 12/04/2020 9:33 AM Alejandra Reyes LNA Anesthesia Plan: ASA 3 general, with a(n) intravenous induction Lorin Cardona is a 66 y.o. female with a PMHx significant for migraine, papillary thyroid cancer s/p total thyroidectomy (now hypothyroid) who presented to OSH for progressive confusion found to have brain tumor now here for resection. Previous anesthesia: Mac 3, Grade 1 view, ett 6 Plan: GA, Ett, Standard asa monitoring Region - Intracranial (non-vascular) Informed Consent: Anesthetic plan and risks discussed with patient and spouse. Use of blood products discussed with patient and spouse who consented to blood products. Plan discussed with resident and attending. Anesthesia Screening documented in this encounter Plan of Treatment Upcoming Encounters Date Type Specialty Care Team Description 12/07/2021 Scheduled View Only Radiation Oncology 12/08/2021 Scheduled View Only Radiation Oncology 12/09/2021 Scheduled View Only Radiation Oncology 12/10/2021 Scheduled View Only Radiation Oncology 12/11/2021 Scheduled View Only Radiation Oncology 12/14/2021 Scheduled View Only Radiation Oncology 12/15/2021 Scheduled View Only Radiation Oncology 12/15/2021 TH Visit (TeleHealth) Hematology and Mairja Baumann MD Oncology [facility] HEMATOLOGY [place], [place] [address] (Wo rk) 12/16/2021 Scheduled View Only Radiation Oncology 12/17/2021 Scheduled View Only Radiation Oncology 12/18/2021 Scheduled View Only Radiation Oncology 12/18/2021 Infusion Hematology and Oncology 12/21/2021 Scheduled View Only Radiation Oncology 12/22/2021 Scheduled View Only Radiation Oncology documented as of this encounter Visit Diagnoses Not on filedocumented in this encounter Administered Medications Inactive Administered Medications - up to 3 most recent administrations Medication Order MAR Action Action Date Dose Rate Site ceFAZolin (Ancef) 1 g in dextrose 5% Given 10/13/2021 3:50 PM ED T 2 g 50 mL infusion Intravenous, PRN, Starting on Tue10/13/21 at 1550, Until Tue10/13/21 at 1652, Administer over 30 Minutes, Anesthesia Intra-op dexAMETHasone (Decadron) injection Given 10/13/2021 3:46 PM EDT 4 mg Intravenous, PRN, Starting on Tue10/13/21 at 1546, Until Tue10/13/21 at 1652, Anesthesia Intra-op, Routine dexmedeTOMIDine (Precedex) (4 mcg/mL) bolus Given 10/13/2021 4:1 3 PM EDT 8 mcg injection (Anesthsia) Intravenous, PRN, Starting on Tue10/13/21 at 1613, Until Tue10/13/21 at 1652, Anesthesia Intra-op, Routine fentaNYL (pf) (50 mcg/mL) multi-dose Given 10/13/2021 4:21 PM ED T 50 mcg injection Intravenous, PRN, Starting on Tue10/13/21 at 1532, Until Tue10/13/21 at 1652, Anesthesia Intra-op, Routine Given 10/13/2021 3:32 PM EDT 50 mcg glycopyrrolate (Robinul) (0.2 mg/mL) Given 10/13/2021 4:18 PM ED T 0.2 mg multi-dose injection Intravenous, PRN, Starting on Tue10/13/21 at 1615, Until Tue10/13/21 at 1652, Anesthesia Intra-op, Routine Given 10/13/2021 4:15 PM EDT 0.2 mg lactated ringers infusion New Bag 10/13/2021 3:23 PM EDT Intravenous, CONTINUOUS PRN, Starting on Tue10/13/21 at 1523, Until Tue10/13/21 at 1652, Anesthesia Intra-op ondansetron (pf) (Zofran) (2 mg/mL) inje ction Given 10/13/2021 4:15 PM EDT 8 mg Intravenous, PRN, Starting on Tue10/13/21 at 1615, Until Tue10/13/21 at 1652, Anesthesia Intra-op, Routine propofoL (Diprivan) (10 mg/mL) New Bag 10/13/2021 3:37 PM 50 m cg/kg/min 20.94 mL/hr infusion EDT Intravenous, CONTINUOUS PRN, Starting on Tue10/13/21 at 1537, Until Tue10/13/21 at 1652, Anesthesia Intra-op, Routine propofoL (Diprivan) 10 mg/mL bolus injection Given 4:24 PM EDT 40 mg (Anesthesia) Intravenous, PRN, Starting on Tue10/13/21 at 1533, Until Tue10/13/21 at 1652, Anesthesia Intra-op Given 10/13/2021 3:33 PM EDT 150 mg rocuronium (Zemuron) (10 mg/mL) multi-dose Given 10/13/2021 3:33 PM EDT 50 mg injection Intravenous, PRN, Starting on Tue10/13/21 at 1533, Until Tue10/13/21 at 1652, Anesthesia Intra-op, Routine sugammadex (Bridion) 100 mg/mL injection Given 10/13/2021 4:18 PM EDT 100 mg Intravenous, PRN, Starting on Tue10/13/21 at 1612, Until Tue10/13/21 at 1652, Anesthesia Intra-op, Routine Given 10/13/2021 4:12 PM EDT 100 mg documented in this encounter Care Teams Assistant Therapy Aide Relationship Specialty Start Date End Date Viki Elaine PA PCP - General Internal Medicine 12/04/[address] [place] [address] [place] [address] documented as of this encounter
--- OUTSIDE RECORDS SUMMARY | 2021-12-04 13:56 | XMS_ITS | Encounter Summary ---
:1955 Author Organization [facility] [place] [address] Care Team Providers Name Role Phone Viki Elaine Primary Care Provider [phone] Encounter Details Date Type Department Care Team Description 04/15/2021 [place] [facility] [place] [facility] [place] [address] Social History Tobacco Use Types Packs/Day [...] documented as of this encounter Progress Notes Jessica Oneal RN - 04/15/2021 11:00 AM EST Thyrogen given in left gluteal, see MAR documented in this encounter Plan of Treatment [...] (TeleHealth) Hematology and Marija Baumann MD Oncology [facility] HEMATOLOGY ON[place], [place] [address] (Wo rk) 12/16/2021 Scheduled View Only Radiation Oncology 12/17/2021 Scheduled View Only Radiation Oncology 12/18/2021 Scheduled View Only Radiation Oncology 12/18/2021 Infusion Hematology and Oncology 12/21/2021 Scheduled View Only Radiation Oncology 12/22/2021 Scheduled View Only Radiation Oncology documented as of this encounter Visit Diagnoses Diagnosis Thyroid cancer Malignant neoplasm of thyroid gland documented in this encounter Administered Medications Inactive Administered Medications - up to 3 most recent administrations Medication Order MAR Action Action Date Dose Rate Site thyrotropin vandana (Thyrogen) Given 04/15/2021 11:03 AM EST 0.9 mg injection 0.9 mg 0.9 mg, Intramuscular, ONCE, 1 dose, On Tue04/15/21 at 1100, Inject into the gluteus yudelka. Total volume = 1 mL of Thyrogen and 0.1 mL overfill added to account for loss in the IM syringe., Routine documented in this encounter Care Teams Fish Bin Tender Relationship Specialty Start Date End Date Viki Elaine PA PCP - General Internal Medicine 12/04/[address] [place] [address] [place] [address] documented as of this encounter
--- OUTSIDE RECORDS SUMMARY | 2021-12-04 13:56 | XMS_ITS | Encounter Summary ---
:1955 Author Organization [facility] [place] [address] Care Team Providers Name Role Phone Viki Elaine Primary Care Provider [phone] Reason for Visit Reason Comments Establish Care Encounter Details Date Type Department Care Team Description 02/20/2021 Office Visit General Surgery at Yulia Kincaid, S/P total thyroidectomy; [facility] SCIENTIST Metastasis from thyroid cancer [facility] [address] [place] [facility] [address] [place] [address] [phone] Social History Tobacco Use Types Packs/Day Years [...] place to sleep or slept in a skilled nursing (including now)? Sex Assigned at Date Recorded Not on file documented as of this encounter Last Filed Vital Signs Vital Sign Reading Time Taken Comments Blood Pressure 121/70 02/20/2021 11:27 AM EST Pulse 84 02/20/2021 11:27 AM EST Temperature - - Respiratory Rate 18 02/20/2021 11:27 AM EST Oxygen Saturation 98% 02/20/2021 11:27 AM EST Inhaled Oxygen Concentration - - Weight 74.8 kg (165 lb) 02/20/2021 11:27 AM EST Height - - Body Mass Index 29.23 01/07/2021 6:23 AM EST documented in this encounter Progress Notes Yulia Kincaid, JEWEL - 02/20/2021 11:20 AM EST Thyroidectomy Post-Op Visit Subjective: Ms. Lorin Cardona is a very pleasant 66 y.o. year old female s/p total thyroidectomy on 12/04/20 for papillary thyroid carcinoma. She is doing very well without complaints. She is not having hypocalcemic symptoms or issues with pain or difficulty swallowing. Exam: No data found. Healing anterior neck incision with underlying healing ridge. No hematoma or seroma. Voice appears normal. Pathology results: A - Thyroid, total thyroidectomy: ?? - Papillary thyroid carcinoma, classic type, three (3) ? foci: 3.9 cm in left upper to mid lobe, 2.7 cm in ? right upper lobe, and 0.5 cm isthmus. ?? - Metastatic papillary thyroid carcinoma in one of ? one lymph node (1/1). ?? - One (1) normocellular parathyroid gland, ? left lower lobe. ?? - Multiple adenomatous nodules, up to 2.5 cm in right ? lower lobe. B - Right central neck contents, excision: ?? - Metastatic papillary thyroid carcinoma in four of ? four lymph nodes (4/4). ?? - The largest metastatic deposit is 1.2 cm. ?? - One (1) normocellular parathyroid gland. C - Left central neck contents, excision: ?? - Metastatic papillary thyroid carcinoma in two of ? six lymph nodes (2/6). ?? - The largest metastatic deposit is 1.5 cm. ?? - One (1) normocellular parathyroid gland. D - Left lateral neck contents, excision: ?? - Metastatic papillary thyroid carcinoma in two of ? twelve lymph nodes (2/12). ?? - The largest metastatic deposit is 1.2 cm. Labs: Lab Results Component Value Date TSH 0.47 02/20/2021 Thyroglobulin pending Assessment and Plan: Ms. Lorin Cardona is a very pleasant 66 y.o. year old female s/p total thyroidectomy for papillary thyroid carcinoma who is doing very well post- operatively without evidence of complications. I discussed the pathology results with the patient and per tumor board recommendations she will need radioactive iodine followed by standard surveillance. She is currently on 125 mcg of levothyroxine daily and TSH is within normal limits, so she will not require a dose adjustment. She may need to be more suppressed but I will leave this to endocrinology once she is finished with [facility]. She has successfully tapered off the post-operative supplemental calcium and vitamin D. I discussed scar massage with vitamin E to aid in incisional appearance and discussed the importanceof UV light protection on scar healing. Overall, she is doing very well post-operatively and I recommended follow up with me on an as neededbasis hereafter. Yulia Kincaid APRN documented in this encounter Plan of Treatment [...] Oncology [facility] HEMATOLOGY [place], [place] [address] (Wo rk) 12/16/2021 Scheduled View Only Radiation Oncology 12/17/2021 Scheduled View Only Radiation Oncology 12/18/2021 Scheduled View Only Radiation Oncology 12/18/2021 Infusion Hematology and Oncology 12/21/2021 Scheduled View Only Radiation Oncology 12/22/2021 Scheduled View Only Radiation Oncology documented as of this encounter Visit Diagnoses Diagnosis S/P total thyroidectomy Other postprocedural status Metastasis from thyroid cancer documented in this encounter Care Teams Manager Of Investigations Relationship Specialty Start Date End Date Viki Elaine PA PCP - General Internal Medicine 12/04/[address] [place] [address] [place] [address] documented as of this encounter
--- OUTSIDE RECORDS SUMMARY | 2021-12-04 13:56 | XMS_ITS | Encounter Summary ---
:1955 [place] [address] Care Team Providers Name Role Phone Viki Elaine Primary Care Provider [phone] Reason for Visit Auth/Cert Specialty Diagnoses / Procedures Referred By Contact Refer red To Contact Diagnoses Papillary thyroid carcinoma PAPILLARY THYROID CANCER Procedures PRO THYROIDECTOMY, MALIG, LTD NECK SURG PRG EMG, LARYNX PRO REMOVAL NODES, NECK, CERV MOD RAD THYROIDECTOMY, FOR MALIGNANCY, LIMITED NECK DISSECTION (WRVU 22.01) FACIAL NERVE MONITORING, SETUP LARYNGEAL (WRVU 1.57) @CERVICAL LYMPHADENECTOMY (MODIFIED RADICAL NECK DISSECTION) (WRVU 23.95) Referral ID Status Reason Start Date Expiration Date Visits Requ ested Visits Authorized [id number] 1 1 Encounter Details Date Type Department Care Team Description 01/07/2021 Surgery Main Operating Room Windy Gagnon YROIDECTOMY, FOR Letty Rosana Travis MD MALIGNANC[facility], [facility] ([facility] [address] 22.01) [facility] ([place], [place]) [place] [address] [place] [id number] [phone] (Wo rk) Social History Tobacco Use Types [...] place to sleep or slept in a [facility] (including now)? Sex Assigned at Date Recorded Not on file documented as of this encounter Last Filed Vital Signs Vital Sign Reading Time Taken Comments Blood Pressure 127/69 01/07/2021 2:30 PM EST Pulse 89 01/07/2021 2:30 PM EST Temperature 36.9 ??C (98.4 ??F) 01/07/2021 2:30 PM EST Respiratory Rate 12 01/07/2021 2:30 PM EST Oxygen Saturation 93% 01/07/2021 2:30 PM EST Inhaled Oxygen Concentration - - Weight 74.4 kg (164 lb) 01/07/2021 6:23 AM EST Height 160 cm (5' 3) 01/07/2021 6:23 AM EST Body Mass Index 29.05 01/07/2021 6:23 AM EST documented in this encounter Discharge Summaries Ezequiel Torres MD - 01/08/2021 10:07 AM EST Images from the original note were not included. Discharge Summary Patient Name: Lorin Cardona Patient Age: 66 y.o. Language: Slovak Race: White Ethnicity: Not nor Admit date: 01/07/2021 Discharge date: 01/08/21 Attending Physician: Windy Gagnon MD Discharge Physician: same Discharge Diagnoses (Hospital Problems) and Secondary Diagnoses (Chronic Problems): Active Hospital Problems Diagnosis ??? Thyroid cancer Resolved Hospital Problems No resolved problems to display. There are no active non-hospital problems to display for this patient. Operations/Major Procedures: Procedure(s): THYROIDECTOMY, FOR MALIGNANCY, LIMITED NECK DISSECTION (WRVU 22.01) FACIAL NERVE MONITORING, SETUP LARYNGEAL (WRVU 1.57) @CERVICAL LYMPHADENECTOMY (MODIFIED RADICAL NECK DISSECTION) (WRVU 23.95) 01/07/2021 History of Presentation (from Dr. Naylor's pre-op H&P): Lorin Cardona is a 66 y.o. female who was previously evaluated for thyroid cancer who is scheduled to undergo total thyroidectomy with central and LEFT neck dissection today. All questions have been answered, risks and benefits explained, and consent signed. She reports no changes in health since last office visit. Denies fever, chills, nausea, vomiting, diarrhea, chest pain, SOB. Hospital Course: Patient was admitted electively to [facility] via the same day surgery program and underwent the above procedure. Operative findings are as follows: Obvious tumor in right thyroid. Grossly positive central neck disease laterally, largest node in left central neck posterior to carotid artery. Therapeutic central neck dissection done. Bilateral recurrent laryngeal nerves and left upper parathyroid preserved. Other parathyroids not seen. Grossly-positive left lateral neck disease, standard left lateral neck dissection done. Left spinal accessory, phrenic, and vagus nerves preserved. 15 Fr round channel drain placed in left lateral and b/l central neck She tolerated surgery well and was transferred from the PACU to the general floor in good conditiona few hours after surgery. Patient's hospital course was uncomplicated. She remained afebrile, with stable vital signs throughout her hospital stay. Post op PTH was within normal limits. Calcium on post-op day was within normal limits. Today, on POD# 1 she has met all criteria for discharge home: her pain is well controlled with medications by mouth, she is tolerating a regular diet, is voiding spontaneously without difficulties, and is up and ambulating without complications. She has been deemed safe for discharge. Plan - follow-up appointment w/ Dr. Gagnon in [facility] - 02/21/20 (get labs drawn prior) - call when ONIEL output is <30cc for 2 straight days for ONIEL removal (about 5 days) Vital Signs at Discharge: Weight: Wt Readings from Last 1 Encounters: 01/07/21 74.4 kg (164 lb) Height: Ht Readings from Last 1 Encounters: 01/07/21 160 cm (5' 3) BMI: Body mass index is 29.05 kg/m??. Last value Range last 24 hrs Temperature Temp: 37 ??C (98.6 ??F) Temp: [36.6 ??C (97.9 ??F)-37.4 ??C (99.3 ??F)] Heart Rate Heart Rate: 66 Heart Rate: [66-94] Blood Pressure BP: 141/74 BP: (122-141)/(64-77) Respiratory Rate Resp: 18 Resp: [9-18] SpO2 SpO2: 98 % SpO2: [92 %-98 %] Exam at Discharge: Gen: NAD, awake/alert Neuro: No hoarseness. Accessory nerve intact. Neck: incision c/d/i with dermabond. No hematoma. ONIEL with sang output. CV: regular rate Pulm: nonlabored breathing on room air Ext: warm, well perfused Functional and Cognitive Status: Ambulating and cognitively intact. Important Studies and Lab Data: Labs: No results for input(s): WBC, HGB, PLATELET in the last 72 hours.No results for input(s): INR in thelast 72 hours. Recent Labs 01/08/21 0906 CALCIUM 8.8 Studies: final pathology Pending Studies and Lab Data: No current labs Discharge Conditions/Prognosis: stable Discharge to: home Updated Allergies/ADRs: No Known Allergies Immunizations Given this Hospitalization: There is no immunization history on file for this patient. Discharge Medications: Your Medications New Medications Dose Details levothyroxine 125 mcg Tab Commonly known as: Synthroid Take 1 tablet by mouth every morning. Start taking on: January 09, 2021 125 mcg Quantity: 90 tablet Refills: 3 Continued medications with new dosing Dose Details calcium carbonate 200 mg calcium (500 mg) Chew Commonly known as: Tums Take 2 tablets by mouth 3 times daily (after meals). What changed: ?? medication strength ?? how much to take ?? when to take this 1,000 mg Refills: 0 Ibuprofen 200 mg Cap Take 1 capsule by mouth as needed. What changed: how much to take 200 mg Refills: 0 Continued medications, unchanged Dose Details acetaminophen 500 mg Tab Commonly known as: Tylenol Take 2 tablets by mouth as needed for Pain. 1,000 mg Refills: 0 ascorbic acid (Vitamin C) 500 mg Tab Commonly known as: Vitamin C Take 500 mg by mouth daily. 500 mg Refills: 0 BENADRYL ALLERGY ORAL Take by mouth. Refills: 0 FISH OIL ORAL Take by mouth daily. Refills: 0 Flonase Allergy Relief 50 mcg/actuation Spsn 1 spray by Each Nare route as needed for Rhinitis. Generic drug: fluticasone propionate 1 spray Refills: 0 multivitamin Cap Take 1 capsule by mouth every other day. 1 capsule Refills: 0 omeprazole 20 mg Cpdr Commonly known as: PriLOSEC Take 20 mg by mouth daily. 20 mg Refills: 0 Smoking Status at Discharge: Social History Tobacco Use Smoking Status Never Smoker Smokeless Tobacco Never Used Instructions Given to Patient at Discharge: Patient Instructions PARATHYROIDECTOMY PATIENT DISCHARGE INSTRUCTIONS What to Expect Following Surgery: Swelling and/or bruising under and around the incision is normal. It is usually greatest on the second or third day following surgery. You may also feel the sensation of swelling or firmness that can last for a month or more Your scar will be most visible for 1-2 months following your operation and will gradually fade over the next 6-8 months. As it heals, a scar often looks more pink or red than the skin around it. You may feel a ???healing ridge?? directly under the incision. This is completely normal and is theresult of swelling, healing, and scar formation. Usually, this will go away when healing is completein 3-6 months. The skin just above and below your incision will feel numb. This will improve over several months but some patients may have long-term decrease in sensation over these areas. You may notice minor difficulty in swallowing which will improve over time. Your voice may be hoarse or weak at first--this is normal and does not mean there was damage done tothe nerves that make the vocal cords move. Your voice will usually go back to normal after several days to a few weeks. Incision Care: Neck incisions heal rapidly--usually within a week or two. The incision can get wet in the shower 24 hours after surgery. However, do not submerge the incisionunderwater (i.e. bath tub, swimming pool, hot tub, etc.) for at least 2 weeks after your operation. Pat the incision dry immediately following your shower. Do not scrub the area vigorously for the next2 weeks. You have a skin glue closure, and you may notice tiny pieces of yellow/white/ramires material on your washcloth or there may be a thin clear or purplish/ramires crust around the edges of the incision. This is normal. The glue will start to come off about a week after surgery. Do not pull off the skin glue in order to allow time for the incision to heal completely. If there is still some glue on your skin 2weeks after surgery, you may gently wash it away. Do not use any ointments/salves/Vitamin E on the incision for 2 weeks as these may impair early wound healing. After 2 weeks (and after the skin glue is gone), you may apply vitamin E oil or scar creams to the incision. Gentle massage may help soften your scar tissue. Incisions are sensitive to sunlight. For at least 1 year after surgery you should use sunscreen whenoutdoors for long periods of time to prevent permanent darkening of the scar. This includes tanning booths. Pain Management: You may apply ice or cold packs to the incision for 15-20 minutes several times a day for the first 2-3 days following surgery to help with discomfort. You may feel some stiffness/soreness in your shoulders, back, and neck. This may take a few days or weeks to go away completely. You may use moist warm heat, a heating pad, or massage to these areas for 15-20 minutes several times a day. Do not be afraid to move your neck - gently flexing and stretching your neck muscles and light massage will help prevent stiffness NSAIDs (non-steroidal anti-inflammatory drugs) such as ibuprofen (Motrin, Advil) and naproxen (Naprosyn, Aleve) or acetaminophen (Tylenol) are most helpful for the pain experienced after surgery. Generally, these are even more effective than the stronger pain medications (narcotics or opioids) after parathyroid surgery. Take NSAIDS or Tylenol every 6 hours [id number] for the first 3-5 days following surgery to help minimize pain. It is unusual to require opioid pain medications after parathyroid surgery. If you were prescribed oxycodone, use only for severe pain, and never take with alcohol. Opioid medications typically cause constipation, so we suggest using a stool softener in addition (metamucil, colace...etc.). Diet & Activity: No restrictions in your diet are necessary. Activity as tolerated by your comfort level. You may return to work as soon as you would like. However, if your job requires heavy lifting or strenuous physical activity, your surgeon may ask you to wait to return to work for two weeks. NO DRIVING for at least 8 hours following any dose of an opioid pain medication if one was prescribed for you. Pathology Report: All specimens removed at surgery are analyzed by a pathologist. This report usually takes approximately 5-7 business days to be ready. As of May 2020, the reports are released directly to your electronic patient portal as soon as they are available. THIS MAY MEAN THAT YOU WILL SEE THE RESULTS BEFOREYOUR SURGEON DOES!!! Dr. Gagnon or Yulia Kincaid APRN, will call you to discuss the report hours of its release. Follow-up Appointment: Will be scheduled with Dr. Gagnon and/or Yulia Kincaid APRN, in 6 weeks If you do not already have a follow up appointment, the date and time as well as any required labs will be mailed to you Please call [phone] to confirm the date and time of your appointment if you do not hear from usin the next 2 weeks Call Doctor for: Call if you have trouble talking or breathing (call [phone] if this is severe) Call if you develop numbness or tingling around your mouth/lips or on the tips of your fingers or your hands, as this may mean your calcium is low. This may also be related to pain medication, where the breathing tube was positioned against your lips, the positioning of your arms and hands in the operating room, or how you were positioned when sleeping. If the sensation does not go away within a halfhour, or if it worsens prior to that, call us immediately so we can discuss increasing your calcium if we think you need it. Call if your incision becomes red or begins to drain fluid. Call if you have fevers greater than 101 degrees F Call if you have persistent nausea or vomiting (this may be related to opioid pain medications). Call if you begin feeling worse, rather than better, several days after surgery. Information about Calcium Supplementation WHAT IS THE EFFECT OF SURGERY ON MY CALCIUM LEVELS? ? The parathyroid glands are responsible for controlling the body???s calcium levels, and you probably needed parathyroid surgery because your calcium level was too high. However, after we remove the abnormal gland(s), the remaining parathyroids frequently do not work perfectly right away. This can result in a decrease in blood calcium levels. This is usually temporary and the remaining parathyroid glands almost always make a full recovery. ? WHAT ARE THE SYMPTOMS OF LOW CALCIUM? ? If the calcium level in the blood stream decreases after surgery, you may experience symptoms of numbness, tingling, or cramps in the fingers, toes, legs, or around the mouth. ? WHAT ARE CALCIUM SUPPLEMENTS? ? Each over the counter calcium supplement tablet is approximately 500-600 mg. ? There are several different types of calcium sold over the counter. Some of the more common brandsyou will see include: Tums, Viactiv, Citracal, Caltrate. ? The two main forms of calcium in supplements are carbonate and citrate. Calcium carbonate (Tums, Viactiv) is absorbed most efficiently when taken with food, whereas calcium citrate (Citracal) is absorbed equally well when taken with or without food. ? HOW MUCH CALCIUM SHOULD I TAKE AFTER SURGERY? ? The exact dose of calcium that is right for you after surgery depends on several factors includingthe type and extent of surgery. ? Most patients will temporarily require some extra calcium as the parathyroid glands recover. ? You probably already purchased calcium supplements after reviewing your preoperative handout. ? A good guideline is to start with 600-1200 mg (1-2 over the counter supplements) twice a day. If you notice symptoms of numbness/tingling, you may need to take it more frequently (up to 3-4 times perday). If you have no symptoms, the dose can be gradually decreased and the extra calcium stopped alto gether within a few days of surgery. ? WHAT ABOUT VITAMIN D? ? Vitamin D can be very helpful with calcium levels, as adequate vitamin D stores in the body help your body absorb calcium. ? If you were on Vitamin D prior to surgery, this can be resumed post-operatively. ? Additional Vitamin D may be included in your calcium supplement, this is fine as well. ? If you are not on Vitamin D and would like to start after surgery, an over the counter supplement of 400-800 IU is the usual recommended dosage, however, if you are on other medications or have otherhealth issues, you will want to discuss this with your PCP. ? If your surgeon is concerned about your calcium levels, (s)he may prescribe a different form of vitamin D called Rocaltrol (Calcitriol). This should be taken as instructed. Note that this is not a replacement for calcium, it should be taken in addition to the recommended calcium supplements to help with absorption. COMMONLY ASKED QUESTIONS: ? Are there side effects to calcium supplements? The most common side effect is constipation and stomach upset. If you are taking high doses of calcium after surgery, be sure to include a stool softener or laxative as needed. Minimize narcotics, as these can also cause constipation. Finally, decrease your calcium supplements if you note no symptoms of low calcium as noted above. Do I need a blood test after surgery to check my calcium levels? Your calcium level will be checkedat your routine follow up visit to make sure it has returned to normal. You will most likely be off the postoperative supplements by then. Our bodies will signal us that the calcium level is low with the symptoms noted above. If you do not have these symptoms, then most likely your calcium level is just fine. Should I take a long-term calcium supplement? Routine calcium supplements can be good for general bone health, especially if you have osteoporosis as a result of your hyperparathyroidism. We recommendthat you discuss long-term supplementation with your PCP. Phone number for questions: [phone] before 5 PM on weekdays [phone] after 5 PM and on weekends/holidays. Ask for the general surgery resident industry operations investigator. DRAIN CARE INSTRUCTIONS Drains help to keep fluid from collecting by removing the extra blood and fluid from under the skin or from an abscess within the body. A drain is temporary. It stays in place until the drainage has slowed down or stopped. You should call the clinic to schedule an appointment to have the drain removedwhen the output is less than 30mL for two days in a row. Please call in 10 days if the drain output remains greater than 30mL daily. Inspect the skin around the insertion site daily for signs of infection such as: ??? Redness or swelling ??? Pus or drainage ??? Fever over 100 F (38 C) or chills ??? Increased pain or discomfort at the insertion site Washing instructions: ??? Gently wash the skin with tap water and pat dry ??? Rinse and air dry the skin before wearing clothes Tube Maintenance: ??? Make sure the tube is properly secured to prevent accidental removal. ??? Strip tubing and empty your drain in the morning and evening ??? Record the drainage amount in the chart provided below. Contact your physician if: ??? There is a significant change in drainage amount or color. ??? If the tube becomes dislodged. ??? If you notice signs of infection (see above). What problems may I have with my drain? The bulb is not compressed- The bulb may not be squeezed tightly enough, the plug may not be closed securely, or the tube has slipped out a bit and is leaking. Follow the instructions on how to empty the drain. If the bulb remains expanded, then notify your doctor or nurse during business hours. ??? No drainage or sudden decrease in amount of drainage- This may be due to a plug in the drain. Please notify your doctor or nurse during business hours. ??? The tube accidentally falls out- If this happens, place a dry gauze dressing over the drain siteand notify your doctor or nurse during business hours. ??? Increased redness, swelling, or heat around the tube insertion site- This may be a sign of infection. Take your temperature: if it is higher than 101F or 38.8C, call your doctor or nurse immediately. Otherwise, notify your doctor or nurse during business hours and keep the dressing clean and dry. How to empty the bulb of a Alexandre-Peguero drain Follow any instructions your doctor gives you. How often you empty the bulb depends on how much fluid is draining. Empty the bulb when it is half full. 1. Wash your hands with soap and water. 2. Take the plug out of the bulb. 3. Empty the bulb. If your doctor asks you to measure the fluid, empty the fluid into a measuring cup, and write down the color and how much you collected. Your doctor will want to know this information. 4. Clean the plug with alcohol. 5. Squeeze the bulb until it is flat. This removes all the air from the bulb. You may need to put the bulb on a table or a counter to flatten it. 6. Keep the bulb flat, and put the plug in. The bulb should stay flat after you put the plug back in. This creates the suction that pulls the fluid into the bulb. 7. Empty the fluid into the toilet. 8. Wash your hands. How to change the dressing around your surgical drain You may have a dressing (bandage). The dressing is often made of gauze pads held on with tape. You should change the dressing daily, or more frequently if necessary. 1. Wash your hands with soap and water. 2. Take off the dressing from around the drain. 3. Clean the drain site and the skin around it with soap and water. Use gauze or a cotton swab. 4. When the site is dry, put on a new dressing. The way your dressing is put on depends on what kind of drain you have. You will get instructions for your type of drain. 5. Wash your hands again with soap and water. Your doctor may ask you to keep track of your dressing changes. Write down the time of day and the amount and color of the fluid on the dressing. How to help prevent clogs in your surgical drain Squeezing or milking the tube of your surgical drain can help prevent clogs so that it drains correctly. Your doctor will tell you when you need to do this. In general, you do this when: ?? You see a clot in the tube that prevents fluid from draining. The clot may look like a dark, stringy lining. ?? You see fluid leaking around the tube where it goes into the skin. Follow these steps for milking the tube. 1. Use one hand to hold and pinch the tube where it leaves the skin. 2. With the thumb and first finger of your other hand, pinch the tube just below where you're holding it. 3. Slowly and firmly push your thumb and first finger down the tubing toward the end of the tube. 4. Repeat this as many times as needed to move the clot. If you have a Alexandre-Peguero (ONIEL) drain, the clot should move down the tube and into the bulb. If youhave a [place] drain, the clot should move into the dressing. Alexandre-Peguero Drainage Record NAME: Date of Surgery: Date: Time: If more than one drain, which one: Drainage Amount (per drain) Total Amount (per drain; in 24 hours) General Instructions None Future Appointments and Orders Future Appointments and Orders Future Appointments Provider Department Dept Phone 02/20/2021 10:20 AM LAB, [facility] Lab [address] [place] [address] Arrive at: [facility] [phone] 02/20/2021 11:20 AM Yulia Kincaid APRN General Surgery at [facility] [place]rive at: [facility] [phone] Future Orders Complete By Expires Thyroglobulin [FGO907 Custom] 02/19/2021 (Approximate) 08/21/2021 Process Instructions: This order includes both Thyroglobulin and Thyroglobulin Antibody assays. Scheduling Instructions: Comments: Questions: TSH [[id number] Custom] 02/19/2021 (Approximate) 08/21/2021 Process Instructions: Scheduling Instructions: Comments: Questions: Follow-Up: Future Appointments Date Time Provider Department Center 02/20/2021 10:20 AM LAB, [facility] Lab [address] [place] [address] 02/20/2021 11:20 AM Yulia Kincaid APRN [facility] Primary Care Provider: INEZ Lindsey [phone] Follow-up Recommendations for Providers: please see discharge summary Click refresh button immediately prior to signing DCS to ensure all villegas are updated. Call your doctor if: Please call your doctor immediately or go to an Emergency Department if you notice worsening pain not controlled by pain medications, uncontrolled headache, vision changes, chest pain, difficulty breathing, persistent nausea and vomiting, new redness or swelling in any extremities, new onset weakness or changes in sensation, or for any fevers greater than 101.3 F. documented in this encounter Discharge Instructions Patient InstructionsEzequiel Torres MD - 01/08/2021 8:35 AM EST Images from the original note were not included. PARATHYROIDECTOMY PATIENT DISCHARGE INSTRUCTIONS What to Expect Following Surgery: Swelling and/or bruising under and around the incision is normal. It is usually greatest on the second or third day following surgery. You may also feel the sensation of swelling or firmness that can last for a month or more Your scar will be most visible for 1-2 months following your operation and will gradually fade over the next 6-8 months. As it heals, a scar often looks more pink or red than the skin around it. You may feel a ???healing ridge?? directly under the incision. This is completely normal and is theresult of swelling, healing, and scar formation. Usually, this will go away when healing is completein 3-6 months. The skin just above and below your incision will feel numb. This will improve over several months but some patients may have long-term decrease in sensation over these areas. You may notice minor difficulty in swallowing which will improve over time. Your voice may be hoarse or weak at first--this is normal and does not mean there was damage done tothe nerves that make the vocal cords move. Your voice will usually go back to normal after several days to a few weeks. Incision Care: Neck incisions heal rapidly--usually within a week or two. The incision can get wet in the shower 24 hours after surgery. However, do not submerge the incisionunderwater (i.e. bath tub, swimming pool, hot tub, etc.) for at least 2 weeks after your operation. Pat the incision dry immediately following your shower. Do not scrub the area vigorously for the next2 weeks. You have a skin glue closure, and you may notice tiny pieces of yellow/white/ramires material on your washcloth or there may be a thin clear or purplish/ramires crust around the edges of the incision. This is normal. The glue will start to come off about a week after surgery. Do not pull off the skin glue in order to allow time for the incision to heal completely. If there is still some glue on your skin 2weeks after surgery, you may gently wash it away. Do not use any ointments/salves/Vitamin E on the incision for 2 weeks as these may impair early wound healing. After 2 weeks (and after the skin glue is gone), you may apply vitamin E oil or scar creams to the incision. Gentle massage may help soften your scar tissue. Incisions are sensitive to sunlight. For at least 1 year after surgery you should use sunscreen whenoutdoors for long periods of time to prevent permanent darkening of the scar. This includes tanning booths. Pain Management: You may apply ice or cold packs to the incision for 15-20 minutes several times a day for the first 2-3 days following surgery to help with discomfort. You may feel some stiffness/soreness in your shoulders, back, and neck. This may take a few days or weeks to go away completely. You may use moist warm heat, a heating pad, or massage to these areas for 15-20 minutes several times a day. Do not be afraid to move your neck - gently flexing and stretching your neck muscles and light massage will help prevent stiffness NSAIDs (non-steroidal anti-inflammatory drugs) such as ibuprofen (Motrin, Advil) and naproxen (Naprosyn, Aleve) or acetaminophen (Tylenol) are most helpful for the pain experienced after surgery. Generally, these are even more effective than the stronger pain medications (narcotics or opioids) after parathyroid surgery. Take NSAIDS or Tylenol every 6 hours [id number] for the first 3-5 days following surgery to help minimize pain. It is unusual to require opioid pain medications after parathyroid surgery. If you were prescribed oxycodone, use only for severe pain, and never take with alcohol. Opioid medications typically cause constipation, so we suggest using a stool softener in addition (metamucil, colace...etc.). Diet & Activity: No restrictions in your diet are necessary. Activity as tolerated by your comfort level. You may return to work as soon as you would like. However, if your job requires heavy lifting or strenuous physical activity, your surgeon may ask you to wait to return to work for two weeks. NO DRIVING for at least 8 hours following any dose of an opioid pain medication if one was prescribed for you. Pathology Report: All specimens removed at surgery are analyzed by a pathologist. This report usually takes approximately 5-7 business days to be ready. As of May 2020, the reports are released directly to your electronic patient portal as soon as they are available. THIS MAY MEAN THAT YOU WILL SEE THE RESULTS BEFOREYOUR SURGEON DOES!!! Dr. Gagnon or Yulia Kincaid APRN, will call you to discuss the report [id number] hours of its release. Follow-up Appointment: Will be scheduled with Dr. Gagnon and/or Yulia Kincaid APRN, in 6 weeks If you do not already have a follow up appointment, the date and time as well as any required labs will be mailed to you Please call [phone] to confirm the date and time of your appointment if you do not hear from usin the next 2 weeks Call Doctor for: Call if you have trouble talking or breathing (call [phone] if this is severe) Call if you develop numbness or tingling around your mouth/lips or on the tips of your fingers or your hands, as this may mean your calcium is low. This may also be related to pain medication, where the breathing tube was positioned against your lips, the positioning of your arms and hands in the operating room, or how you were positioned when sleeping. If the sensation does not go away within a halfhour, or if it worsens prior to that, call us immediately so we can discuss increasing your calcium if we think you need it. Call if your incision becomes red or begins to drain fluid. Call if you have fevers greater than 101 degrees F Call if you have persistent nausea or vomiting (this may be related to opioid pain medications). Call if you begin feeling worse, rather than better, several days after surgery. Information about Calcium Supplementation WHAT IS THE EFFECT OF SURGERY ON MY CALCIUM LEVELS? ? The parathyroid glands are responsible for controlling the body???s calcium levels, and you probably needed parathyroid surgery because your calcium level was too high. However, after we remove the abnormal gland(s), the remaining parathyroids frequently do not work perfectly right away. This can result in a decrease in blood calcium levels. This is usually temporary and the remaining parathyroid glands almost always make a full recovery. ? WHAT ARE THE SYMPTOMS OF LOW CALCIUM? ? If the calcium level in the blood stream decreases after surgery, you may experience symptoms of numbness, tingling, or cramps in the fingers, toes, legs, or around the mouth. ? WHAT ARE CALCIUM SUPPLEMENTS? ? Each over the counter calcium supplement tablet is approximately 500-600 mg. ? There are several different types of calcium sold over the counter. Some of the more common brandsyou will see include: Tums, Viactiv, Citracal, Caltrate. ? The two main forms of calcium in supplements are carbonate and citrate. Calcium carbonate (Tums, Viactiv) is absorbed most efficiently when taken with food, whereas calcium citrate (Citracal) is absorbed equally well when taken with or without food. ? HOW MUCH CALCIUM SHOULD I TAKE AFTER SURGERY? ? The exact dose of calcium that is right for you after surgery depends on several factors includingthe type and extent of surgery. ? Most patients will temporarily require some extra calcium as the parathyroid glands recover. ? You probably already purchased calcium supplements after reviewing your preoperative handout. ? A good guideline is to start with 600-1200 mg (1-2 over the counter supplements) twice a day. If you notice symptoms of numbness/tingling, you may need to take it more frequently (up to 3-4 times perday). If you have no symptoms, the dose can be gradually decreased and the extra calcium stopped alto gether within a few days of surgery. ? WHAT ABOUT VITAMIN D? ? Vitamin D can be very helpful with calcium levels, as adequate vitamin D stores in the body help your body absorb calcium. ? If you were on Vitamin D prior to surgery, this can be resumed post-operatively. ? Additional Vitamin D may be included in your calcium supplement, this is fine as well. ? If you are not on Vitamin D and would like to start after surgery, an over the counter supplement of 400-800 IU is the usual recommended dosage, however, if you are on other medications or have otherhealth issues, you will want to discuss this with your PCP. ? If your surgeon is concerned about your calcium levels, (s)he may prescribe a different form of vitamin D called Rocaltrol (Calcitriol). This should be taken as instructed. Note that this is not a replacement for calcium, it should be taken in addition to the recommended calcium supplements to help with absorption. COMMONLY ASKED QUESTIONS: ? Are there side effects to calcium supplements? The most common side effect is constipation and stomach upset. If you are taking high doses of calcium after surgery, be sure to include a stool softener or laxative as needed. Minimize narcotics, as these can also cause constipation. Finally, decrease your calcium supplements if you note no symptoms of low calcium as noted above. Do I need a blood test after surgery to check my calcium levels? Your calcium level will be checkedat your routine follow up visit to make sure it has returned to normal. You will most likely be off the postoperative supplements by then. Our bodies will signal us that the calcium level is low with the symptoms noted above. If you do not have these symptoms, then most likely your calcium level is just fine. Should I take a long-term calcium supplement? Routine calcium supplements can be good for general bone health, especially if you have osteoporosis as a result of your hyperparathyroidism. We recommendthat you discuss long-term supplementation with your PCP. Phone number for questions: [phone] before 5 PM on weekdays [phone] after 5 PM and on weekends/holidays. Ask for the general surgery resident industry operations investigator. DRAIN CARE INSTRUCTIONS Drains help to keep fluid from collecting by removing the extra blood and fluid from under the skin or from an abscess within the body. A drain is temporary. It stays in place until the drainage has slowed down or stopped. You should call the clinic to schedule an appointment to have the drain removedwhen the output is less than 30mL for two days in a row. Please call in 10 days if the drain output remains greater than 30mL daily. Inspect the skin around the insertion site daily for signs of infection such as: ??? Redness or swelling ??? Pus or drainage ??? Fever over 100 F (38 C) or chills ??? Increased pain or discomfort at the insertion site Washing instructions: ??? Gently wash the skin with tap water and pat dry ??? Rinse and air dry the skin before wearing clothes Tube Maintenance: ??? Make sure the tube is properly secured to prevent accidental removal. ??? Strip tubing and empty your drain in the morning and evening ??? Record the drainage amount in the chart provided below. Contact your physician if: ??? There is a significant change in drainage amount or color. ??? If the tube becomes dislodged. ??? If you notice signs of infection (see above). What problems may I have with my drain? The bulb is not compressed- The bulb may not be squeezed tightly enough, the plug may not be closed securely, or the tube has slipped out a bit and is leaking. Follow the instructions on how to empty the drain. If the bulb remains expanded, then notify your doctor or nurse during business hours. ??? No drainage or sudden decrease in amount of drainage- This may be due to a plug in the drain. Please notify your doctor or nurse during business hours. ??? The tube accidentally falls out- If this happens, place a dry gauze dressing over the drain siteand notify your doctor or nurse during business hours. ??? Increased redness, swelling, or heat around the tube insertion site- This may be a sign of infection. Take your temperature: if it is higher than 101F or 38.8C, call your doctor or nurse immediately. Otherwise, notify your doctor or nurse during business hours and keep the dressing clean and dry. How to empty the bulb of a Alexandre-Peguero drain Follow any instructions your doctor gives you. How often you empty the bulb depends on how much fluid is draining. Empty the bulb when it is half full. 1. Wash your hands with soap and water. 2. Take the plug out of the bulb. 3. Empty the bulb. If your doctor asks you to measure the fluid, empty the fluid into a measuring cup, and write down the color and how much you collected. Your doctor will want to know this information. 4. Clean the plug with alcohol. 5. Squeeze the bulb until it is flat. This removes all the air from the bulb. You may need to put the bulb on a table or a counter to flatten it. 6. Keep the bulb flat, and put the plug in. The bulb should stay flat after you put the plug back in. This creates the suction that pulls the fluid into the bulb. 7. Empty the fluid into the toilet. 8. Wash your hands. How to change the dressing around your surgical drain You may have a dressing (bandage). The dressing is often made of gauze pads held on with tape. You should change the dressing daily, or more frequently if necessary. 1. Wash your hands with soap and water. 2. Take off the dressing from around the drain. 3. Clean the drain site and the skin around it with soap and water. Use gauze or a cotton swab. 4. When the site is dry, put on a new dressing. The way your dressing is put on depends on what kind of drain you have. You will get instructions for your type of drain. 5. Wash your hands again with soap and water. Your doctor may ask you to keep track of your dressing changes. Write down the time of day and the amount and color of the fluid on the dressing. How to help prevent clogs in your surgical drain Squeezing or milking the tube of your surgical drain can help prevent clogs so that it drains correctly. Your doctor will tell you when you need to do this. In general, you do this when: ?? You see a clot in the tube that prevents fluid from draining. The clot may look like a dark, stringy lining. ?? You see fluid leaking around the tube where it goes into the skin. Follow these steps for milking the tube. 1. Use one hand to hold and pinch the tube where it leaves the skin. 2. With the thumb and first finger of your other hand, pinch the tube just below where you're holding it. 3. Slowly and firmly push your thumb and first finger down the tubing toward the end of the tube. 4. Repeat this as many times as needed to move the clot. If you have a Alexandre-Peguero (ONIEL) drain, the clot should move down the tube and into the bulb. If youhave a [place] drain, the clot should move into the dressing. Alexandre-Peguero Drainage Record NAME: Date of Surgery: Date: Time: If more than one drain, which one: Drainage Amount (per drain) Total Amount (per drain; in 24 hours) documented in this encounter Medications at Time of Discharge Medication Sig Dispensed Refills Start Date End Date acetaminophen (Tylenol) 500 Take 2 tablets by [...] 500 mg Tablet mouth every other day. Ibuprofen 200 mg Capsule Take 1 capsule by 0 03/202010/14/2021 mouth as needed. levothyroxine (Synthroid) Take 1 tablet by 90 tablet 3 04/202002/20/2021 125 mcg Tablet mouth every morning. fluticasone propionate 1 spray by Each 0 06/04/2021 (Flonase) 50 mcg/actuation Nare route as Swink, Suspension needed for Rhinitis. omeprazole (PriLOSEC) 20 mg Take 20 mg by 0 10/14/2021 Capsule, Delayed mouth as needed. Release(E.C.) documented as of this encounter Progress Notes Linda Mahmood RN - 01/08/2021 10:26 AM EST Patient being discharged home. Patients will be transporting patient home in vehicle. Patients iv and tele removed per facility protocol. ONIEL drain remains in place and is CDI. Patient education provided on how to empty and strip ONIEL drain. Patient education and instructions provided. Skin CDI.VSS. Patient escorted to [facility]. Ezequiel Ferris MD - 01/07/2021 5:29 PM EST General Surgery Post-op Check Patient Name: Lorin Cardona : 1955 Admit date: 01/07/2021 Attending Physician: Windy Gagnon MD ID: Lorin Cardona is a 66 y.o. female POD#0 s/p total thyroidectomy and central and left neck dissection. Subjective/24hr Events: - Doing well since the OR, now has a floor bed - Pain is well controlled, does have some neck stiffness - Ambulating to the bathroom without issue - Denies neck/shoulder weakness - Has some numbness on the left neck - Afebrile and hemodynamically stable - PTH 21 - no need for calcitriol - LR@100 Current Medications: ??? calcium carbonate 1,000 mg Oral TID PC ??? [START ON 01/08/2021] levothyroxine 125 mcg Oral QAM ??? [START ON 01/08/2021] pantoprazole EC 20 mg Oral Daily ??? sodium chloride 0.9 % (flush) 5 mL Intravenous BID ??? acetaminophen 1,000 mg Oral Q6H CARMEN ??? cholecalciferol (Vitamin D3) 800 Units Oral TID Objective: Last value Range last 24hrs Temperature Temp: 36.9 ??C (98.4 ??F) Temp: [36.6 ??C (97.9 ??F)-37.1 ??C (98.8 ??F)] Heart Rate Heart Rate: 89 Heart Rate: [66-94] Blood Pressure BP: 127/69 BP: (122-146)/(64-108) Respiratory Rate Resp: 12 Resp: [9-18] SpO2 SpO2: 93 % SpO2: [92 %-100 %] Intake/Output Summary (Last 24 hours) at 01/07/2021 1730 Last data filed at 01/07/2021 1700 Gross per 24 hour Intake 600 ml Output 509 ml Net 91 ml Physical Exam: Gen: NAD, awake/alert Neuro: No hoarseness. Accessory nerve intact. Neck: incision c/d/i with dermabond. No hematoma. ONIEL with sang output. CV: regular rate Pulm: nonlabored breathing on room air Ext: warm, well perfused Labs: No results for input(s): WBC, HGB, HCT, PLATELET, PT, INR, PTT in the last 72 hours. No results for input(s): NA, K, CL, CO2, BUN, CREATININE, GLUCOSE, CALCIUM, MAGNESIUM, PHOS in the last 72 hours. Micro: No results for input(s): URINECULTURE in the last 720 hours. No results for input(s): BLOODCX in the last 720 hours. Imaging: No results found for this visit on 01/07/21. A/P: Lorin Cardona is a 66 y.o. female POD#0 s/p total thyroidectomy and central and left neck dissection. Doing very well post-operatively. PTH post surgery wnl. Will check calcium tomorrow. Will start calcium supplementation (tums) TID and synthroid. Pain is well controlled, has tylenol and ibuprofen. No evidence of hematoma, ONIEL w/ sang output. No evidence of nerve injury. No hoarseness and strength intact. Ezequiel Torres MD 01/07/2021 [id number] Renetta Treadwell RN - 01/07/2021 2:15 PM EST Report received from LIZABETH Ram. Neck incision PRODUCTION AIDE with dermabond intact, no drainage, well-approximated. Ice placed on site. ONIEL drain in place to left neck putting out dark drainage. Pt report sore throat from ET tube otherwise denies pain and nausea at this time. Pt had Gonzalez catheter during surgery. Pt DTV at 1645. Pt tolerating ice chips. Report given to LIZABETH Brennan. Aylin Nina RN - 01/07/2021 1:11 PM EST 1256 : Patient received from operating room, alarm on and set appropriate for patient, vs's. documented in this encounter H&P Notes Sun Lind - 01/07/2021 2:31 PM ESTSummary: H&P Surgery Pre-Operative H&P HPI: Lorin Cardona is a 66 y/o female with a history of multiple thyroid nodules and a strong f/h of thyroid cancer scheduled to undergo total thyroidectomy with central and left neck dissection. has 3 siblings with a h/o papillary thyroid carcinoma and requested a thyroid ultrasound during her last primary care visit. Ultrasound was significant for multiple nodules and she was referred to endocrine surgery. Pathology and imaging came back positive for regionally metastatic papillary thyroid carcinoma. In clinic on , Mrs. Cardona denied symptoms of hypo or hyperthyroidism. She denied troubleswallowing, sensations of something in her throat, hoarseness or trouble breathing. Her TSH levels were wnl. Mrs. Cardona has three (of four) siblings with a h/o papillary thyroid carcinoma. She does not have a history of radiation exposure. She does not have a history of heart or lung disease. She is not on anticoagulation. She does not smoke and drinks alcohol only occasionally. Today she feels well without changes in her symptoms since her last visit. She denies N/V/D. She denies fever, chills, chest pain or shortness of breath. Risks and benefits have been discussed with herand all of her questions have been answered. Past Medical History: Past Medical History: Diagnosis Date ??? GERD (gastroesophageal reflux disease) ? Kidney stones ? Osteopenia Medications: Current Outpatient Medications Medication Sig Dispense Refill ??? calcium carbonate (CALCIUM 300 ORAL) Take 1,200 mg by mouth daily. ? docosahexaenoic acid/epa (FISH OIL ORAL) Take by mouth daily. ? multivitamin Capsule Take 1 capsule by mouth every other day. ? omeprazole (PriLOSEC) 20 mg Capsule, Delayed Release(E.C.) Take 20 mg by mouth daily. ? ascorbic acid, Vitamin C, (Vitamin C) 500 mg Tablet Take 500 mg by mouth daily. ? fluticasone propionate (Flonase Allergy Relief) 50 mcg/actuation Swink, Suspension 1 spray by Each Nare route as needed for Rhinitis. ? Ibuprofen 200 mg Capsule Take by mouth as needed. ? acetaminophen (Tylenol) 500 mg Tablet Take 1,000 mg by mouth as needed for Pain. Allergies: No known allergies Patient Vitals for the past 24 hrs: BP Temp Temp src Pulse Resp SpO2 Height Weight 01/07/21 1430 127/69 -- -- 89 12 93 % -- -- 01/07/21 1415 132/65 36.6 ??C (97.9 ??F) Temporal 88 10 95 % -- -- 01/07/21 1400 130/64 -- -- 89 12 93 % -- -- 01/07/21 1345 122/64 -- -- 84 9 93 % -- -- 01/07/21 1330 127/67 -- -- 89 11 92 % -- -- 01/07/21 1315 124/67 -- -- 90 14 97 % -- -- 01/07/21 1300 132/77 37.1 ??C (98.8 ??F) Temporal 94 14 96 % -- -- 01/07/21 0623 (!) 146/108 36.7 ??C (98.1 ??F) -- 66 18 100 % 160 cm (5' 3) 74.4 kg (164 lb) Physical Exam: General: Pt is not in any acute distress. A&Ox3. Pulmonary: Breathing comfortably on room air Extremities: Warm, dry and well perfused Neurologic: Tracking provider, normal speech, sensation and movement intact in all four extremities Imaging: Ultrasound: Multinodular thyroid with bilateral hypoechoic, complex nodules. CT: Diffusely heterogeneous thyroid with multiple abnormal lymph nodes consistent with regional ivan metastatic disease. No evidence of pathologic adenopathy elsewhere. Pathology: FNA of lymph node: Left level four lymph node. Suspicious for malignancy and consistent with metastatic papillary thyroid carcinoma. Assessment and Plan: Lorin Cardona is a 66 y.o. female who was found to have papillary thyroid carcinoma with regional metastases is scheduled to undergo total thyroidectomy with central and left neckdissection. Plan will be for her to be admitted to the hospital after surgery. Procedure and risks have been explained to her and all of her questions were answered. Sun Lind MS3 [facility] Je Naylor MD - 01/07/2021 7:07 AM EST Surgery Pre-Operative H&P HPI: Lorin Cardona is a 66 y.o. female who was previously evaluated for thyroid cancer who is scheduled to undergo total thyroidectomy with central and LEFT neck dissection today. All questions have been answered, risks and benefits explained, and consent signed. She reports no changes in health since last office visit. Denies fever, chills, nausea, vomiting, diarrhea, chest pain, SOB. ROS: As per HPI. Remainder of ROS is otherwise negative. Past Medical History: Past Medical History: Diagnosis Date ??? GERD (gastroesophageal reflux disease) ??? Kidney stones ??? Osteopenia PSHx: History reviewed. No pertinent surgical history. Meds: No current facility-administered medications for this encounter. Allergies: Patient has no known allergies. Social Hx: Social History Socioeconomic History ??? Marital status: Spouse name: None ??? Number of children: None ??? Years of education: None ??? Highest education level: None Occupational History ??? None Tobacco Use ??? Smoking status: Never Smoker ??? Smokeless tobacco: Never Used Substance and Sexual Activity ??? Alcohol use: Not Currently Comment: rarely ??? Drug use: Never ??? Sexual activity: None Other Topics Concern ??? None Social History Narrative ??? None Social Determinants of Health Financial Resource Strain: Not on file Food Insecurity: Not on file Transportation Needs: Not on file Physical Activity: Not on file Housing Stability: Not on file Family hx: History reviewed. No pertinent family history. Physical Exam: Temp: [36.7 ??C (98.1 ??F)] Heart Rate: [66] Resp: [18] BP: (146)/(108) SpO2: [100 %] Heart Rate from SpO2: -- NAD, A&O Regular rate Unlabored on RA Soft, NTND Well perfused extremities Laboratory: No results found for this or any previous visit (from the past 24 hour(s)). Assessment/Plan: A/P: Lorin Cardona is a 66 y.o. female who presents for the reasons listed above. Procedure and risks have been explained to the patient and all questions were answered. Informed consent has been obtained. She is ready for the OR. documented in this encounter Miscellaneous Notes Initial Assessments - Ingrid Aviles RN - 01/08/2021 10:16 AM EST Office of Care Management Initial Assessment/Discharge Note Medical record reviewed. Plan of care and patient status discussed with direct care Registered Nurseand/or Care Team in multidisciplinary rounds. Last COVID test: Lab Results Component Value Date [id number] Not Detected 01/07/2021 66 y.o. female here for Present on Admission: ??? Thyroid cancer Patient has not been admitted to a hospital within the last 30 days. Patient receiving hospital care under IPI- SDP Admission (IP) status. Admission order reviewed. Primary Insurance on file: MEDICARE Secondary Insurance on file:@ Primary care provider on file: INEZ Lindsey [phone] Pharmacy: [facility] - [place], [place] - [address] [facility] [address] [facility] [address] Advance Directive on file and Code Status: <no information>, Attempt Cardiopulmonary Resuscitation - Inpatient Patient???s Functional Status: Independent [address] [place] [address] Assessment: Patient with no apparent RNCM/SW needs at this time. No housing, transportation, insurance, resources concerns identified at this time. Supports in place to achieve a safe post-hospital transition. No identified barriers to accessing necessary care and/or follow-up after discharge. Plan: Patient to d/c to home via private car when medically ready. Registered Nurse Senior Network Architect / Foundation Relations Director will continue to follow patient???s progress and remain available if situation changes for coordination of care, psychosocial support and/or discharge planning. Office of Care Management Ingrid Aviles RN, BSN Case Management Plan of Care - Antoinette Valentin RN - 01/08/2021 5:26 AM EST OUTCOME EVALUATION NOTE: OUTCOME SUMMARY: Pt A&O, pain is minimal. Incision site open to air with ONIEL with sang drainage. Ambulated around the unit x1. Able to void after without any issues but at baseline has some issues with voiding. IV fluids stopped at 0045. Slept well. Progressing towards goals. PLAN MOVING FORWARD: Q6 W/A VS. Pain control. Monitor output in ONIEL drain. Access incision site INDIVIDUALIZED FALL PREVENTION INTERVENTIONS: Patient-specific fall risk factors per assessment: pain Assistance: Independent Supervision: Arms reach Surveillance: Bed locked in low position, call beavers within reach, purposeful hourly rounding, clutter free environment, bed/chair alarm on Patient-specific fall prevention interventions for sensory deficits provided: No CPG GOAL OUTCOME EVALUATION: Continue care plan as documented. Plan of Care - Anu Reyes RN - 01/07/2021 3:14 PM EST Lorin Cardona arrived to 503B @ 3:00pm from PACU. Oriented to room, call beavers within reach, educated on importance of using prior to getting OOB, AVSS, incision healing well, belongings updated in eDH, bed locked in low position, purposeful hourly rounding, bed/chair alarm on. OUTCOME EVALUATION NOTE: OUTCOME SUMMARY: Pt underwent thyroidectomy and neck dissection today for thyroid cancer. Arrived from PACU A&Ox4 with no pain complaints. Ice provided to promote healing and reduce swelling. Patients visited at bedside. Pt stand by assist with walker and able to ambulate well. Up to bathroom to void with small success. Bladder scanned, team notified. Will continue to monitor. PLAN MOVING FORWARD: Pain control Mobilization Healing INDIVIDUALIZED FALL PREVENTION INTERVENTIONS: Patient-specific fall risk factors per assessment: [current deficits] Assistance: SBA Supervision: Eyes on Surveillance: Bed locked in low position, call beavers within reach, purposeful hourly rounding, clutter free environment, bed/chair alarm on, family at bedside Patient-specific fall prevention interventions for sensory deficits provided: CPG GOAL OUTCOME EVALUATION: Continue care plan as documented. Brief Op Note - Windy Gagnon MD - 01/07/2021 12:36 PM EST Brief Operative Note Patient Name: Lorin Cardona : [id number] MR#: [id number] Case Date: 01/07/2021 Surgeon: Surgeon(s) and Role: * Windy Gagnon MD - Primary * Je Naylor MD - Resident Preoperative diagnosis: PAPILLARY THYROID CANCER Postoperative diagnosis: PAPILLARY THYROID CANCER Procedure(s) (LRB): THYROIDECTOMY, FOR MALIGNANCY, LIMITED NECK DISSECTION (WRVU 22.01) (Bilateral) FACIAL NERVE MONITORING, SETUP LARYNGEAL (WRVU 1.57) (N/A) @CERVICAL LYMPHADENECTOMY (MODIFIED RADICAL NECK DISSECTION) (WRVU 23.95) (Left) Anesthesia: General Findings: obvious tumor in right thyroid. Grossly positive central neck disease laterally, largest node in left central neck posterior to carotid artery. Therapeutic central neck dissection done. Bilateral recurrent laryngeal nerves and left upper parathyroid preserved. Other parathyroids not seen. Grossly- positive left lateral neck disease, standard left lateral neck dissection done. Left spinal accessory, phrenic, and vagus nerves preserved. 15 Fr round channel drain placed in left lateral and b/lcentral neck. Complications: none apparent Intake: Intraprocedure Crystalloid Total Intake Lactated Ringers 200.00 mL Sodium Chloride 0.9% 400.00 mL Total Intake 600 mL Output Urine Output 445 mL Blood Loss 39 mL Total Output 484 mL Net Net Volume 116 mL Transfusion No data found in the last 1 encounters. Output: Estimated Blood Loss: 39 mL Urine Output:: 445 mL Other Output: (no other output recorded) Drains: none Specimens removed during surgery: Order Name Source Comment Collection Info Order Time SPECIMEN TO PATHOLOGY Total thyroid stitch tobar right upper pole PAPILLARY THYROID CANCER Total thyroid stitch tobar right upper pole excision 01/07/2021 9:26 AM Time specimen removed from patient: 9:25 AM Number of tissue samples (in container) 1 SPECIMEN TO PATHOLOGY Right central neck contents PAPILLARY THYROID CANCER Right central neck contents excision 01/07/2021 9:38 AM Time specimen removed from patient: 9:38 AM Number of tissue samples (in container) 1 SPECIMEN TO PATHOLOGY Left central neck contents PAPILLARY THYROID CANCER Left central neck contents excision 01/07/2021 9:59 AM Time specimen removed from patient: 9:58 AM Number of tissue samples (in container) 1 SPECIMEN TO PATHOLOGY Stitch is superior PAPILLARY THYROID CANCER left lateral neck contents excision 01/07/2021 11:50 AM Time specimen removed from patient: 11:49 AM Number of tissue samples (in container) 1 Disposition: awakened from anesthesia, extubated and taken to the recovery room in a stable condition, having suffered no apparent untoward event. Condition: doing well without problems Attestation: Case Date: 01/07/2021 I was present and I participated during the entire procedure (does not need to include opening and closing). (Please see the Surgical Encounter Summary for any Implant and Specimen details pertinent to this patient.) Infection Bundle used? N/A Op Note - Windy Gagnon MD - 01/07/2021 8:24 AM EST [facility] [place] Patient Name: Lorin Cardona : [id number] MR#: [id number] Case Date: 01/07/2021 Surgeon: Surgeon(s) and Role: * Windy Gagnon MD - Primary * Je Naylor MD - Resident Preoperative diagnosis: PAPILLARY THYROID CANCER Postoperative diagnosis: PAPILLARY THYROID CANCER Procedure(s) (LRB): THYROIDECTOMY, FOR MALIGNANCY, LIMITED NECK DISSECTION (WRVU 22.01) (Bilateral) FACIAL NERVE MONITORING, SETUP LARYNGEAL (WRVU 1.57) (N/A) @CERVICAL LYMPHADENECTOMY (MODIFIED RADICAL NECK DISSECTION) (WRVU 23.95) (Left) Anesthesia: General Estimated Blood Loss: 39 mL Specimens removed during surgery: Order Name Source Comment Collection Info Order Time SPECIMEN TO PATHOLOGY Total thyroid stitch tobar right upper pole PAPILLARY THYROID CANCER Total thyroid stitch tobar right upper pole excision 01/07/2021 9:26 AM Time specimen removed from patient: 9:25 AM Number of tissue samples (in container) 1 SPECIMEN TO PATHOLOGY Right central neck contents PAPILLARY THYROID CANCER Right central neck contents excision 01/07/2021 9:38 AM Time specimen removed from patient: 9:38 AM Number of tissue samples (in container) 1 SPECIMEN TO PATHOLOGY Left central neck contents PAPILLARY THYROID CANCER Left central neck contents excision 01/07/2021 9:59 AM Time specimen removed from patient: 9:58 AM Number of tissue samples (in container) 1 SPECIMEN TO PATHOLOGY Stitch is superior PAPILLARY THYROID CANCER left lateral neck contents excision 01/07/2021 11:50 AM Time specimen removed from patient: 11:49 AM Number of tissue samples (in container) 1 Drains: Drain/Device Site 01/07/21 1204 Left neck collapsible closed device (Active) Surgical Closure: Primary Closure - skin incision is completely closed without any wires, tony, drains or other devices Disposition: awakened from anesthesia, extubated and taken to the recovery room in a stable condition, having suffered no apparent untoward event. Condition: doing well without problems (Please see the Surgical Encounter Summary for any Implant and Specimen details pertinent to this patient.) HPI/Surgical Indications: Ms. Lorin Cardona is a 65 y.o. year old female with multiple thyroid nodules and FNA of the TR 5 nodule in the right lobe demonstrating suspicious for malignancy (Lithia 5)cytology. She has a very suspicious sonographically node in the left central neck as well as lymphade nopathy in the left lateral neck that biopsied positive by both cytology and Tg washout. CTs of her neck and chest were negative for additional sites of disease. Procedure Description: The patient was correctly identified in the preoperative holding area. The risks, benefits, and indications of a thyroidectomy were reviewed with the patient. She was then taken to the operating room and placed on the operating table in the supine position and an identification procedure was performed. Adequate general anesthesia was achieved by anesthesiology with the Mixpanel recurrent laryngeal nerve monitoring system. A natural crease in the anterior neck was marked with a marking pen. This area was infiltrated with 0.25% Sensorcaine with epinephrine. The patient's anterior neck was then prepped and draped in sterile fashion. A timeout procedure was done and all membersof the OR team were in agreement. We made a curvilinear incision along the previously marked crease with a scalpel. The incision was carried down through the subcutaneous tissue and platysma muscle using electrocautery. Subplatysmal flaps were created in the cranial and caudal directions. The median raphe of the strap muscles was iden tified and this was divided in vertical fashion using electrocautery. This exposed the thyroid gland, which was from its lateral attachments to the strap muscles on the right side using electrocautery. The middle thyroidal veins were ligated with 3-0 silk sutures and Ligasure device. The inferior thyroid vessels were identified and divided using a combination of hand ties and Ligasure device. We then identified the recurrent laryngeal nerve as it ran in the tracheoesophageal groove and followed this up to ligament of Meza, ligating vessels to expose the nerve's anterior surface. We then took down the upper pole thyroid vessels with a combination of 2-0 and 3-0 silk sutures and Ligasure d evice. The parathyroid glands were not seen. We then divided the attachments of the ligament of Meza with sharp dissection and 3-0 silk sutures and divided the attachments of the thyroid off the pretracheal fascia past the midline with electrocautery. We performed an identical procedure on the left thyroid lobe. The left upper parathyroid gland was identified and preserved. The recurrent laryngeal nerve was fully functional upon completion. The thyroid specimen was removed, marked with a suture on the right upper pole and sent to pathology. We then performed a therapeutic central neck dissection. We dissected the lymph nodes from the hyoidbone cranially to the innominate artery caudally between the common carotid arteries laterally. The level 6 and 7 lymph nodes were carefully dissected away from the paratracheal and paraesophageal spaces and off the recurrent laryngeal nerves posteriorly. There was grossly positive disease in the bilateral central necks, the largest being an approximately 2cm node that was located partially posteriorto the carotid artery and vagus nerve in the left central neck. The bilateral recurrent laryngeal nerves were carefully preserved and were anatomically intact bilaterally and functional on the nerve monitor with stimulation. Care was taken to preserve the left upper parathyroid gland on its vascular pedicle. The central neck contents were removed, right and left separately, and sent to pathology as permanent specimens. We then turned our attention to performing the left modified radical neck dissection. This was performed in standard fashion. The sternocleidomastoid muscle was dissected out and a Caroline drain placedaround this. The omohyoid muscle was transected using the Ligasure device. We then dissected along the lateral aspect of the internal jugular vein. We followed this down to its junction with the subclavian vein. The thoracic duct was not clearly seen. We were very careful to ligate and divide the tissue in this area using clips, ties, and the LigaSure device to minimize the risk of a lymphatic a thoracic duct leak. We began to roll the tissue off the subclavian vein and continued in a caudal to cranial direction. We identified the anterior scalene muscle, and along the anterior surface of this, we identified the phrenic nerve. Stimulation of the phrenic nerve with the NIM elicited diaphragmatic shrug. We continue to clear the tissue from the lateral surface of the internal jugular vein medially to the posterior border of the sternocleidomastoid muscle laterally, with the scalene muscles definingthe floor of our dissection. We left the appropriate plane of tissue over the brachial plexus. As wecontinued in a cranial direction, we identified the course of the spinal accessory nerve and this elicited a shoulder shrug with stimulation. We followed this out laterally and began to ligate and divide attachments of soft tissue along this plane using clips and the LigaSure device. The specimen was then detached, and marked with a stitch at its superior aspect. We palpated all around the lateral compartment, and did not feel any grossly positive nodes remaining. Final hemostasis was achieved and there was no evidence of overt lymphatic leak, especially down lowin level 4. We irrigated with water and suctioned this out. We placed Surgicel in the lateral compartment. We then placed a 15-Uzbek round channel drain in the left lateral compartment, threaded it under the vertical strap muscles to communicate with the bilateral central neck. The drain was brought out through a separate stab incision in the left lateral neck which was then held in place with a 2-0Prolene suture. We then reapproximated the left sternocleidomastoid muscle to the sternohyoid muscleto cover over the carotid artery and jugular vein. We then irrigated the central neck. A Valsalva to 30 millimeters of mercury was accomplished by Anesthesia. Hemostasis was assured. Both recurrent laryngeal nerves were retested, and both were found katie fully functional with the Nim stimulator. Surgicel was placed in the paratracheal spaces bilaterally. We then closed the vertical strap muscles in the midline using running 3-0 Vicryl suture, the platysma with interrupted 3-0 Vicryl suture, and the skin with running 4-0 Monocryl subcuticular suture, followed by placement of Dermabond. The patient tolerated the procedure well. Sponge and needle counts were correct upon completion of the procedure. Infection Bundle used? N/A Attestation: Case Date: 01/07/2021 I was present and I participated during the entire procedure (does not need to include opening and closing). WINDY GAGNON MD 01/07/2021 documented in this encounter Plan of Treatment [...] Baumann MD Oncology [facility] DR HEMATOLOGY ONCOL [place]ER[place], [place] [id number] (Wo rk) 12/16/2021 Scheduled View Only Radiation Oncology 12/17/2021 Scheduled View Only Radiation Oncology 12/18/2021 Scheduled View Only Radiation Oncology 12/18/2021 Infusion Hematology and Oncology 12/21/2021 Scheduled View Only Radiation Oncology 12/22/2021 Scheduled View Only Radiation Oncology documented as of this encounter Procedures Procedure Name Priority Date/Time Associated Comments Diagnosis HC CALCIUM, SERUM STAT 01/08/2021 9:06 Results for this AM EST procedure are i n the results section. HC SARS-COV-2 SPIKE Routine 01/07/2021 6:26 Resul ts for this ANTIBODY PM EST procedure are i n the results section. GOLD TUBE HOLD Routine 01/07/2021 6:26 Results fo r this PM EST procedure are i n the results section. LAVENDER TUBE HOLD Routine 01/07/2021 6:26 Result s for this PM EST procedure are i n the results section. HC PARATHYROID Routine 01/07/2021 1:24 Results fo r this HORMONE(PTH INTACT PM EST procedure are in the results section. SPECIMEN TO PATHOLOGY Routine 01/07/2021 11:50 Re sults for this AM EST procedure are i n the results section. SPECIMEN TO PATHOLOGY Routine 01/07/2021 9:59 Res ults for this AM EST procedure are i n the results section. SPECIMEN TO PATHOLOGY Routine 01/07/2021 9:39 Res ults for this AM EST procedure are i n the results section. SURGICAL PATHOLOGY Routine 01/07/2021 9:26 Result s for this REPORT AM EST procedure are i n the results section. SPECIMEN TO PATHOLOGY Routine 01/07/2021 9:26 Res ults for this AM EST procedure are i n the results section. @CERVICAL 01/07/2021 7:35 PAPILLARY THYROID LYMPHADENECTOMY AM EST CANCER (MODIFIED RADICAL NECK DISSECTION) (WRVU 23.95) FACIAL NERVE MONITORING, 01/07/2021 7:35 PAPILLARY THY ROID SETUP LARYNGEAL (WRVU AM EST CANCER 1.57) THYROIDECTOMY, FOR 01/07/2021 7:35 PAPILLARY THYROID MALIGNANCY, LIMITED NECK AM EST CANCER DISSECTION (WRVU 22.01) RAPID COVID-19 PCR Routine 01/07/2021 7:28 Result s for this ([facility]) AM EST procedure are in the results section. documented in this encounter Results TSH (02/20/2021 10:14 AM EST) P athologist Signature TSH 0.47 0.27 - 4.20 [facility] mcIU/mL [facility] Comment: Reference Interval (mcIU/mL): Females: ??First Trimester: 0.23-3.88 ??Second Trimester: 0.22-3.90 ??Third Trimester: 0.44-4.66 Specimen Anatomical Collection Method Collection Time Receive d Time (Source) Location / / Volume Laterality Blood 02/20/2021 10:02/20/2021 AM EST 10:31 AM EST Resulting Agency Comment Spec In Lab Windy Gagnon MD CHEMISTRY ORDERABLES Performing Organization Address City/State/[place] [address] (ABNORMAL) Thyroglobulin (02/20/2021 10:14 AM EST) Analysis Performed At Patho logist Time Signature Thyroglobulin Not Perf <=54.9 [facility] ng/mL [facility] Comment: Thyroglobulin cannot be accurately measu red by the [facility] [place] immunoassay method because this specimen contains an ti-thyroglobulin antibody. This order for thyroglobulin measurement by immunoa ssay has been cancelled, and a reflex order for thyroglobulin measurement by m ass spectrometry has been placed. Subsequent thyroglobulin measurements fo r this patient should also be performed by mass spectrometry. Any additional ord ers should be placed using the [facility] Request [id number] indicating requested lab is Thyroglobulin by LC-MS/MS, [facility] test [id number]. If Thyroglobulin Antibody testing is needed use [id number] Thyroglobulin Ab. Thyroglob Ab 48.0 (H) 0.0 - 40.0 IU/mL [facility] Specimen Anatomical Collection Method Collection Time Receive d Time (Source) Location / / Volume Laterality Blood 02/20/2021 10:02/20/2021 2:30 AM EST PM EST Resulting Agency Comment Spec In Lab Windy Gagnon MD CHEMISTRY ORDERABLES Performing Organization Address City/[facility]/[place] [address] Calcium (01/08/2021 9:06 AM EST) P athologist Signature Calcium 8.8 8.5 - 10.5 [facility] mg/dL [facility] Specimen Anatomical Collection Method Collection Time Receive d Time (Source) Location / / Volume Laterality Blood 01/08/2021 9:06 AM 9:33 EST AM EST Resulting Agency Comment Spec In Lab Windy Gagnon MD CHEMISTRY ORDERABLES Performing Organization Address City/[facility]/ZIP Code Phon e Number [address] Lavender Tube HOLD (01/07/2021 6:26 PM EST) Patholo gist Method Time Signature Lavender Hold Sample in [facility] Specimen Anatomical Collection Method Collection Time Receive d Time (Source) Location / / Volume Laterality Blood Venous Draw / 01/07/2021 6:26 PM 01/08/20 21 6:47 Unknown EST PM EST Je Naylor MD HEMATOLOGY ORDERABLES Performing Organization Address City/[facility]/[place] [address] Gold Tube HOLD (01/07/2021 6:26 PM EST) P athologist Signature Gold Hold Sample in [facility] Specimen Anatomical Collection Method Collection Time Receive d Time (Source) Location / / Volume Laterality Blood Venous Draw / 01/07/2021 6:26 PM 01/08/20 21 6:47 Unknown EST PM EST Je Naylor MD CHEMISTRY ORDERABLES Performing Organization Address City/[facility]/[place] [address] COVID-19 Harshad Antibody (01/07/2021 6:26 PM EST) Analysis Performed At Patho logist Time Signature SARS-CoV-2 Detected [facility] Comment: This is a total antibody assay to the sp dwaine protein of SARS-CoV-2. It does not distinguish between IgG and IgM antibodi es to SARS-CoV-2. This test will detect antibodies made against the spike protei n due to vaccination or from a previous infection. Results cannot be used to diagnose acute SARS-CoV-2 (Severe acute respiratory syndrome coronavirus 2, also known as novel coronavirus or 2019-nCoV) infection. A 'Not Detected' result does not rule ou t SARS-CoV-2 infection, particularly in those who have been in contact with the virus. Follow-up testing with a molecular diagnostic test to SARS-CoV-2 should be considered for individuals with symptoms of active SARS-CoV-2 infec tion. A 'Detected' result cannot be interprete d as conclusive evidence of protective immunity to the SARS-CoV-2 virus. Detect ion may be due to a past infection with mhx-QSIK-SdT-2 coronavirus strains, such as coronavirus HKU1, NL63, OC43, or 229E. This test was performed using the [employer] s Rfbw-SQNA-TpP-2 S total antibody assay on the Julieth Luis [id number] analyzer. This serology test is available following FDA Emergency Use Authorizatio n, however it has not been reviewed by the FDA, nor is it FDA cleared or approv ed. The performance characteristics of this test were determined by the [facility] ent of Pathology and Laboratory Medicine at [facility]. The laboratory is certified under the Clinical Laboratory Improvemen t Amendments of 1988 (CLIA), 42 U.S.C. section 263a, to perform high complexity tests. Results should not be used as the sole b asis to diagnose or exclude SARS-CoV-2 infection, to inform infection status, o r to screen donated blood. CDC COVID-19 criteria for testing on hum an specimens and clinical management guidance information are available at th e CDC Coronavirus Disease 2019 (COVID-19) webpage under Information fo r Healthcare Professionals (https://www.cdc.gov/coronavirus/2019-nc ov/hcp/index.html) Additional information about this and ot her EUA tests can be found in provider and patient fact sheets at the following FDA website: https://www.fda.gov/medical-devices/dgigtnedgov-fevwpur-8834-dwtqq-13-itxrtoufz- eyr-tbdpauolkcnkql-ruysasy-devices/poqaa-ktbrhrdpryf-yukq Specimen Anatomical Collection Method Collection Time Receive d Time (Source) Location / / Volume Laterality Blood 01/07/2021 6:26 PM 6:47 EST PM EST Windy Gagnon MD CHEMISTRY ORDERABLES Performing Organization Address City/[facility]/[place] [address] PTH (01/07/2021 1:24 PM EST) P athologist Signature PTH 21 15 - 65 [facility] pg/mL [facility] LABORATORY Specimen Anatomical Collection Method Collection Time Receive d Time (Source) Location / / Volume Laterality Blood 01/07/2021 1:24 PM 1:40 EST PM EST Resulting Agency Comment Spec In Lab Windy Gagnon MD CHEMISTRY ORDERABLES Performing Organization Address City/[facility]/[place] [address] Specimen to Pathology (01/07/2021 11:50 AM EST) Specimen Anatomical Collection Method Collection Time Receive d Time (Source) Location / / Volume Laterality AP Specimen 01/07/2021 11:50 01/07/2021 AM EST 11:50 AM EST Narrative [facility] - 01/07/2021 11:50 AM EST Specimen requisition ordered. ??Separate Pathology report to follow Windy Gagnon MD PATHOLOGY/CYTOLOGY ORDERABLE S Performing Organization Address City/[facility]/[place] [address] Specimen to Pathology (01/07/2021 9:59 AM EST) Specimen Anatomical Collection Method Collection Time Receive d Time (Source) Location / / Volume Laterality AP Specimen 01/07/2021 9:59 AM 9:59 EST AM EST Narrative [facility] - 01/07/2021 9:59 AM EST Specimen requisition ordered. ??Separate Pathology report to follow Windy Gagnon MD PATHOLOGY/CYTOLOGY ORDERABLE S Performing Organization Address City/State/ZIP Code Phon e Number [place] [phone] [facility] [address] Specimen to Pathology (01/07/2021 9:39 AM EST) Specimen Anatomical Collection Method Collection Time Receive d Time (Source) Location / / Volume Laterality AP Specimen 01/07/2021 9:39 AM 9:39 EST AM EST Narrative [facility] - 01/07/2021 9:39 AM EST Specimen requisition ordered. ??Separate Pathology report to follow Windy Gagnon MD PATHOLOGY/CYTOLOGY ORDERABLE S Performing Organization Address City/[facility]/ZIP Code Phon e Number [place] [phone] Surgical Pathology Report (01/07/2021 9:26 AM EST) Component Value Ref Test Analysis Performed At [facility] Range Method Time Signature Surgical [id number] ? Location: 5WST; [facility]; B [facility] Report The signing pathologist has (i) examined the relevant preparation(s) for the [facility] specimen(s) and (ii) rendered or confirmed the diagnosis(es) . HOSPITAL LABORATORY . ?Surgic al Pathology DIAGNOSIS A - Thyroid, total thyroidectomy: ??- Papillary thyroid carcinoma, classic type, three (3) ?foci: 3.9 cm in left upper to mid lobe, 2.7 cm in ?right upper lobe, and 0.5 cm isthmus. ??- Metastatic papillary thyroid carcinoma in one of ?one lymph node (02/07). ??- One (1) normocellular parathyroid gland, ?left lower lobe. ??- Multiple adenomatous nodules, up to 2.5 cm in right ?lower lobe. B - Right central neck contents, excision: ??- Metastatic papillary thyroid carcinoma in four of ?four lymph nodes (4/4). ??- The largest metastatic deposit is 1.2 cm. ??- One (1) normocellular parathyroid gland. C - Left central neck contents, excision: ??- Metastatic papillary thyroid carcinoma in two of ?six lymph nodes (2/6). ??- The largest metastatic deposit is 1.5 cm. ??- One (1) normocellular parathyroid gland. D - Left lateral neck contents, excision: ??- Metastatic papillary thyroid carcinoma in two of ?twelve lymph nodes (2/12). ??- The largest metastatic deposit is 1.2 cm. Electronically signed by: ?Genevieve Emerson MD Verified: ??01/22/2021 13:52 ??Pathologist Performed at: ??[place] [place], [place], [place] SYNOPTIC Specimen ? Procedure: ??Total thyroidectomy Tumor ? Tumor Focality: ??Multifocal ? Tumor Characteristics ?Tumor Identifier: ??1 ?Tumor Site: ??Left lobe ?Tumor Size: ??3.9 Centimeters (cm) ?Histologic Type: ??Papillary carcinoma, classic (usual, conventional) ?Angioinvas ion (vascular invasion): ??Focal (less than 4 vessels) ?Lymphatic Invasion: ??Present ?Perineural Invasion: ??Not identified ?Extrathyroidal Extension: ??Not identified ?Margin Status: ??All margins negative for carcinoma ? Distan ce from Invasive Carcinoma to Closest Margin: ??Less than 1 mm ? Tumor Characteristics ?Tumor Identifier: ??2 ?Tumor Site: ??Right lobe ?Tumor Size: ??2.7 Centimeters (cm) ?Histologic Type: ??Papillary carcinoma, classic (usual, conventional) . SYNOPTIC ?Angioinvasion (vascular invasion): ??Not i dentified ?Lymphatic Invasion: ??Present ?Perineural Invasion: ??Not identified ?Extrathyroidal Extension: ??Not identified ?Margin Status: ??All margins negative for carcinoma ? Distan ce from Invasive Carcinoma to Closest Margin: ??Less than 1 mm ? Tumor Characteristics ?Tumor Identifier: ??3 ?Tumor Site: ??Isthmus ?Tumor Size: ??0.5 Centimeters (cm) ?Histologic Type: ??Papillary carcinoma, classic (usual, conventional) ?Angioinvasion (vascular invasion): ??Not i dentified ?Lymphatic Invasion: ??Not identified ?Perineural Invasion: ??Not identified ?Extrathyroidal Extension: ??Not identified ?Margin Status: ??All margins negative for carcinoma ? Distan ce from Invasive Carcinoma to Closest Margin: ??Less than 1 mm Regional Lymph Nodes ? Regional Lymph Node Status: ??Tumor present in regional lymph node(s) ?Number of Lymph Nodes with Tumor: ??9 ?Ivan Leve l(s) Involved: ??Level ; ??Left lateral (mid- portion of specimen ? D, blocks D2 and D3; may represent level IV per prior FNA specimen ([id number] ?[id number])) ?Size of Largest Metastatic Deposit: ??1.5 cm ?Extranodal Extension (BLADIMIR): ??Not identifi ed ? Number of Lymph Nodes Examined: ??23 ?Ivan Level(s) Examined: ??Level ; ??Lef t lateral Pathologic Stage Classification (pTNM, AJCC 8th Edition) ? TNM Descriptors: ??m (multiple primary tumors) ? pT Category: ??pT2 ? pN Category: ??pN1b Additional Findings ? Additional Findings: ??Parathyroid gland(s) pre sent ?Number of Parathyroid Glands: ??3 ?Location o f Parathyroid Gland(s): ??Left inferior; ??Right central neck; ? Left central neck ?Parathyroid Gland Findings: ??Within sara l limits Tumor Block(s): ??Tumor 1: A1, A2, A4; Tumor 2: A13, A16, A18; Tumor 3: A 9 Normal Block(s): ??A22 CAP [facility] July 2020 Release SPECIMEN(S) SUBMITTED A - Thyroid, total thyroidectomy B - Right central neck contents, excision C - Left central neck contents, excision D - Left lateral neck contents, excision CLINICAL INFORMATION Papillary thyroid cancer SPECIMEN PROCESSING A - Labeled/Fixative: Total thyroid, fresh. Quantity/Size/Weight: Single, 5.3 x 5.3 x 2.8 cm, 19 g. SPECIMEN DESCRIPTION: Resection Specimen: Intact, total thyroidectomy. External Surface: Red-brown, slightly ragged, a stitch tobar right upper pole. ??LESION ?Location: Mid left lobe. . SPECIMEN PROCESSING ?Description: Two, solid pink-white nodules. ?Size: Measuring 0.6 and 0.8 cm in greatest dimension. ?Contour/capsule: Encapsulated. ??LESION (2) ?Location: Mid right lobe. ?Description: Solid white nodule. ?Size: 0.6 cm in greatest dimension. ?Contour/capsule: Encapsulated. Parenchyma: In addition to t he lesions mentioned above, each lobe and isthmus have multiple pink-white colloid -type nodules scattered throughout, the largest 2.5 cm. There is a background o f red homogeneous parenchyma interspersed between the nodules. Inking: The thyroid capsule is inked black. Entirely submitted in 25 cassettes as follows: ?A1-A8: ??Left lobe, sequentially submitted from superi or to inferior ?A9-A11: ??Isthmus from left to right ?A12-A25: ??Right lobe, sequentially submit dipti from superior to inferior B - Labeled/Fixative: Right central neck contents, fresh. Quantity/Size: Multiple, 3.5 x 2.5 x 2.0 cm. Tissue Description: Adipose tissue with five lymph nodes, up to 1.1 cm. The largest node is calcified. Sections/Processing: The lymph nodes are entirely submitted. Sheriff Detective sections in 3 cassettes as follows: ?B1: ??Two nodes ?B2: ??Two nodes, differentially inked and bisected ?B3: ??One node trisected C - Labeled/Fixative: Left central neck contents, fresh. Quantity/Size: Multiple, 3.0 x 2.5 x 1.5 cm. Tissue Description: Adipose tissue with two lymph nodes, up to 1.5 cm. Multiple small lymph nodes possible within the remaining fibroadipose tiss ue. Sections/Processing: Entirely submitted in 5 cassettes as follows: ?C1: ??One node bisected ?C2-C3: ??One node quadrisected ?C4-C5: ??Remaining fibroadipose tissue D - Labeled/Fixative: Left lateral neck contents, fresh. Quantity/Size: Single, 6.5 x 4.0 x 2.0 cm. Tissue Description: Adipose tissue with multiple lymph nodes, up to 2.5 cm. The specimen is received with a suture designating superior. Sections/Processing: The lymph nodes are entirely submitted from superior to infe rior. Sheriff Detective sections in 5 cassettes as follows: ?D1: ??Three nodes ?D2: ??One node bisected ?D3: ??One node bisected ?D4: ??Five nodes ?D5: ??Two nodes ??sns Specimen (Source) Anatomical Collection Method Collection Time Re ceived Time Location / / Volume Laterality 01/07/2021 9:26 AM EST Windy Gagnon MD PATHOLOGY/CYTOLOGY ORDERABLE S Performing Organization Address City/[facility]/[place] [address] Specimen to Pathology (01/07/2021 9:26 AM EST) Specimen Anatomical Collection Method Collection Time Receive d Time (Source) Location / / Volume Laterality AP Specimen 01/07/2021 9:26 AM 9:26 EST AM EST Narrative [facility] - 01/07/2021 9:26 AM EST Specimen requisition ordered. ??Separate Pathology report to follow Windy Gagnon MD PATHOLOGY/CYTOLOGY ORDERABLE S Performing Organization Address City/[facility]/[place] [address] COVID-19 PCR (01/07/2021 7:28 AM EST) [facility] Method Time Signature SARS-CoV-2 Not Detected Not Detected LETTY RNA PCR [facility] Comment: This result should be interpreted in com bination with the clinical observations, patient history and epidem iological information. For testing of asymptomatic individuals, assay performa nce characteristics and clinical utility have not been evaluated. Testing for SARS-CoV-2 (Severe acute respiratory syndrome coronavirus 2, form erly known as 2019 novel coronavirus or 2019-nCoV) to aid in the diagnosis of CO VID-19 is performed using the Simplexa COVID-19 Direct Assay by [employer] Mole[employer] lar as authorized by the FDA issued Emergency Use Authorization (EUA). This assay is intended for In-vitro Diagnostic (IVD) use with nasopharyngeal swabs collected from individuals meeting the CDC criteria for testing. assay is performed based on the instructions for use and additional guid reinier provided by the FDA. Testing is performed in the Microbiology Laboratory within the Department of Pathology and Laboratory Medicine at [facility], certified under the Clinical Laboratory Improvement Amendmen ts of 1988 (CLIA), 42 U.S.C. section 263a, to perform high complexity tests. Assay performance has been verified according to clinical laboratory regulat ory requirements. Test results are provided above. A resul t of Not Detected indicates that the viral RNA target is not present but does not preclude SARS-CoV-2 infection. False negative results may occur if a sp ecimen is improperly collected, transported or handled; if amplification inhibitors are present; or if inadequate numbers of viral particles ar e present in the specimen. A result of Detected suggests a current or recent infection and the patient is presumed to be infected. Positive and negative pr edictive values for this test are highly dependent on disease prevalence. A result of Invalid indicates the inability to conclusively determine the presence or absence of SARS-CoV-2 RNA in the sample which can be due to a vari ety of factors. Recollection is recommended in the case of an invalid re sult. CDC COVID-19 criteria for testing on hum an specimens and clinical management guidance information are available at [facility] CDC Coronavirus Disease 2019 (COVID-19) webpage under Information fo r Healthcare Professionals (https://www.cdc.gov/coronavirus/2019-nc ov/hcp/index.html). Additional information about this and ot her EUA tests can be found in provider and patient fact sheets at the following FDA website: https://www.fda.gov/medical-devices/spvcbizsyce-gphlfnr-3615-kytmw-64-jstkccjtj- bmu-vglsvjyzyojoxo-qjjgfqq-devices/uhvoz-jnigukoekeb-tjdg SARS-CoV-2 Source [employer] Swab LETTY [facility] Specimen (Source) Anatomical Collection Method Collection Time Re ceived Time Location / / Volume Laterality Nasopharyngeal Swab 01/07/2021 7:28 01/07 AM EST 8:53 AM EST Comment: Symptoms->Surveillance Resulting Agency Comment Spec In Lab Windy Gagnon MD MICROBIOLOGY - GENERAL ORDER CORTEZ Performing Organization Address City/State/[place] [address] documented in this encounter Visit Diagnoses Not on filedocumented in this encounter Admitting Diagnoses Diagnosis Thyroid cancer Malignant neoplasm of thyroid gland documented in this encounter Administered Medications Inactive Administered Medications - up to 3 most recent administrations Medication Order MAR Action Action Date Dose Rate Site acetaminophen (Tylenol) tablet Given 01/08/2021 6:00 AM EST 1,00 0 mg 1,000 mg 1,000 mg, Oral, EVERY 6 HOURS SCHEDULED, First dose on Tue01/07/21 at 1800, Until Discontinued, Maximum dose of acetaminophen is 4000 mg from all sources in 24 hours. When ordered for pain, acetaminophen should be given even when other ordered pain medications are indicated., Routine Given 01/08/2021 12:54 AM EST 1,000 mg Given 01/07/2021 5:44 PM EST 1,000 mg BUpivacaine-EPINEPHrine Given 01/07/2021 12:24 PM 20 mLs 19- Surgical Site (Marcaine-epiNEPHrine) 0.25 EST %-1:200,000 injection ONCE PRN, Starting on Tue01/07/21 at 0848, Until Kiki 01/08/21 at 1321, Intra-Operative (Intra-Procedure), Routine Given 01/07/2021 8:48 AM EST 10 mLs 19- S urgical Site calcium carbonate (Tums) chewable tablet Given 01/07/2021 5:44 P M EST 1,000 mg 1,000 mg 1,000 mg, Oral, 3 TIMES DAILY AFTER MEALS, First dose on Tue01/07/21 at 1800, Until Discontinued, Routine cholecalciferol (Vitamin D3) (Vitamin D3) Given 2020 8:48 AM EST 800 Units tablet 800 Units 800 Units, Oral, 3 TIMES DAILY, First dose on Tue01/07/21 at 1615, Until Discontinued, 40 units is equivalent to 1 mcg of cholecalciferol., Routine Given 01/07/2021 8:41 PM EST 800 Units Given 01/07/2021 4:41 PM EST 800 Units levothyroxine (Synthroid) tablet 125 mcg Given 01/08/2021 6:00 AM EST 125 mcg 125 mcg, Oral, EVERY MORNING, First dose on Kiki 01/08/21 at 0600, Until Discontinued, Routine ondansetron (pf) (Zofran) (2 mg/mL) inje ction 4 mg 4 mg, Intravenous, EVERY 8 HOURS PRN, St arting on Tue01/07/21 at 1519, Until Kiki 01/08/21 at 1321, Nausea, May repeat time s one in 30 minutes if ineffective. If multiple antiemetics are ordered, use ondansetron firs t, Recovery (Recovery-Hospital Unit) ondansetron (Zofran) tablet 4 mg 4 mg, Oral, EVERY 8 HOURS PRN, Starting on Tue01/07/21 at 1519, Until Kiki 01/08/21 at 1321, Nausea, Vomiting, If multipl e antiemetics are ordered, use ondansetron first. PO Preferred. If patient unable to take PO, may give IV if ordered. May repeat times one in 45 minutes if ineffe ctive., Recovery (Recovery-Hospital Unit), Routine pantoprazole EC (Protonix) tablet 20 mg Given 01/08/2021 8:48 AM EST 20 mg 20 mg, Oral, DAILY, First dose on Kiki 01/08/21 at 0900, Until Discontinued, DO NOT CRUSH OR OPEN, Routine sodium chloride 0.9 % (flush) (BD PosiFlush Given 01/08/2021 8:4 9 AM EST 5 mLs Normal Saline 0.9) flush 5 mL 5 mL, Intravenous, 2 TIMES DAILY, First dose on Tue01/07/21 at 2100, Until Discontinued, Recovery (Recovery-Hospital Unit), Routine Given 01/07/2021 8:45 PM EST 5 mLs documented in this encounter Active and Recently Administered Medications Times are shown in EST. Scheduled Medication Order 2021 01/07/2021 01/08/2021 acetaminophen (Tylenol) tablet 1,000 mg 1744 (Given - Provider: Anu Morris RN) 0054 (Given - Provider: Antoinette Valentin, RN) 0600 (Given - Provider: Antoinette Valentin, LIZABETH) 1,000 mg, Oral, EVERY 6 HOURS SCHEDULED, First dose on Tue01/07/21 at 1800, Until Discontinued, Maximum dose of acetaminophen is 4000 mg from all sources in 24 hours. When ordered for pain, acetaminophe n should be given even when other ordere d pain medications are indicated., Routine calcium carbonate (Tums) chewable tablet 1,000 mg 1744 (Given - Provider: Anu Morris RN) 0900 (Not Given - Provider: Linda walker RN - Reason: Patient/family refused) 1,000 mg, Oral, 3 TIMES DAILY AFTER MEAL S, First dose on Tue01/07/21 at 1800, Until Discontinued, Routine cholecalciferol (Vitamin D3) (Vitamin D3) tablet 800 Units 164 (Given - Provider: Anu Morris RN)2040 (Given - Provider: Antoinette Valentin RN) 0848 (Given - Provider: Linda Mahmood, LIZABETH) 800 Units, Oral, 3 TIMES DAILY, First do se on Tue01/07/21 at 1615, Until Discontinued, 40 units is equivalent to 1 mcg of cholecalciferol., Routine levothyroxine (Synthroid) tablet 125 mcg 0600 (Given - Provider: Antoinette Valentin RN) 125 mcg, Oral, EVERY MORNING, First dose on Kiki 01/08/21 at 0600, Until Discontinued, Routine pantoprazole EC (Protonix) tablet 20 mg 0848 (Given - Provider: Linda Mahmood RN) 20 mg, Oral, DAILY, First dose on Kiki at 0900, Until Discontinued, DO NOT CRUSH OR OPEN, Routine sodium chloride 0.9 % (flush) (BD PosiFlush Normal Saline 0. 9) flush 5 mL 2044 (Given - Provider: Antoinette Valentin RN) 0849 (Given - Provider: Linda Mahmood , LIZABETH) 5 mL, Intravenous, 2 TIMES DAILY, First dose on Tue01/07/21 at 2100, Until Discontinued, Recovery (Recovery-Hospital Unit), Routine Continuous Medication Order 2021 01/07/2021 01/08/2021 lactated ringers infusion () 1344 (New Bag - Provider: Renetta Treadwell RN) 0053 (Stopped - Provider: Idania Mccartney) 100 mL/hr, Intravenous, CONTINUOUS, Star ting on Tue01/07/21 at 1400, Until Tue01/07/21 at 2359, Recovery (Recovery-Hospital Unit) PRN Medication Order 2021 01/07/2021 01/08/2021 BUpivacaine-EPINEPHrine (Marcaine-epiNEP Hrine) 0.25 %-1:200,000 injection (CANCELED) 0848 (Given - Provider: Stiven Naylor MD)1224 (Given - Provider: Je Naylor MD) ONCE PRN, Starting on Tue01/07/21 at 084 8, Until Kiki 01/08/21 at 1321, Intra- Operative (Intra-Procedure), Routine ibuprofen (Advil) tablet 800 mg 800 mg, Oral, EVERY 6 HOURS PRN, Startin g on Tue01/07/21 at 1519, Until Kiki 01/08/21 at 1321, Pain, for MODERATE pain (4-6), Do not administer with ketorolac, Routine labetaloL (Normodyne) (5 mg/mL) injection solution 20 mg 20 mg, Intravenous, EVERY 4 HOURS PRN, S tarting on Tue01/07/21 at 1341, Until Kiki 01/08/21 at 1321, High Blood Pressure, Give if SBP greater than 160 mmHg, Routine lidocaine (Xylocaine) 1% (10 mg/mL) injection 3 mg 3 mg (0.3 mL), Subcutaneous, ONCE PRN, 1 dose, Starting on Tue01/07/21 at 1519, Until Kiki 01/08/21 at 1321, for discomfort with PIV insertion, Recovery (Recovery-Hospital Unit), Routine ondansetron (pf) (Zofran) (2 mg/mL) injection 4 mg(Linked Group 1) 4 mg, Intravenous, EVERY 8 HOURS PRN, St arting on Tue01/07/21 at 1519, Until Kiki 01/08/21 at 1321, Nausea, May repeat times one in 30 minutes if ineffective. If multiple antiemetics are ordered, use o ndansetron first, Recovery (Recovery-Hospital Unit) ondansetron (Zofran) tablet 4 mg(Linked Group 1) 4 mg, Oral, EVERY 8 HOURS PRN, Starting on Tue01/07/21 at 1519, Until Kiki 01/08/21 at 1321, Nausea, Vomiting, If multiple antiemetics are ordered, use ondansetron first. PO Preferred. If patient song ble to take PO, may give IV if ordered. May repeat times one in 45 minutes if ineffective., Recovery (Recovery-Hospital Unit), Routine sodium chloride 0.9 % (flush) (BD PosiFlush Normal Saline 0.9) f lush 5-20 mL 5-20 mL, Intravenous, EVERY 1 MIN PRN, S tarting on Tue01/07/21 at 1519, Until Kiki 01/08/21 at 1321, flush, Flush pertains to all indwelling lines. Flush per protocol found in the job aid using the link p rovided on this medication record., Recovery ([facility]), Routine Linked Groups Order Group 1: ondansetron (Zofran) tablet 4 mgJump to med 4 mg, Oral, EVERY 8 HOURS PRN, Starting on Tue01/07/21 at 1519, Until Kiki 01/08/21 at 1321, Nausea, Vomiting
If multiple antiemetics are ordered, use ondansetron first. PO Preferr ed. If patient unable to take PO, may gi ve IV if ordered. May repeat times one in 45 minutes if ineffective.
Recovery (Recovery-Hospital Unit), Routine Or ondansetron (pf) (Zofran) (2 mg/mL) injection 4 mgJump to med 4 mg, Intravenous, EVERY 8 HOURS PRN, St arting on Tue01/07/21 at 1519, Until Kiki 01/08/21 at 1321, Nausea
May repeat times one in 30 minutes if ineffective. If multiple antiemetics a re ordered, use ondansetron first
R ecovery (Recovery-Hospital Unit) documented in this encounter Care Teams Communications Assistant Relationship Specialty Start Date End Date Viki Elaine PA PCP - General Internal Medicine 12/04/[address] [place] [address] [place] [id number] documented as of this encounter
--- OUTSIDE RECORDS SUMMARY | 2021-12-04 13:56 | XMS_ITS | Encounter Summary ---
:1955 Author Organization [facility] [place] [address] Care Team Providers Name Role Phone Viki Elaine Primary Care Provider [phone] Encounter Details Date Type Department Care Team Description 06/01/2021 Orders Only Radiation Oncology at Alvin Miguel MD Thyroid cancer [facility] Shady alvarado [place] [address] [place] [address] [phone] (Wo rk) Social History Tobacco Use Types [...] Oncology [facility] HEMATOLOGY ONCOL [place], [place] [address] (Wo rk) 12/16/2021 Scheduled View Only Radiation Oncology 12/17/2021 Scheduled View Only Radiation Oncology 12/18/2021 Scheduled View Only Radiation Oncology 12/18/2021 Infusion Hematology and Oncology 12/21/2021 Scheduled View Only Radiation Oncology 12/22/2021 Scheduled View Only Radiation Oncology documented as of this encounter Results Thyroglobulin (06/04/2021 1:47 PM EDT) P athologist Signature Thyroglobulin <0.2 <=54.9 AKASH MORELAND ng/mL [facility] Thyroglob Ab <20.0 0.0 - 40.0 AKASH MORELAND IU/mL [facility] Specimen Anatomical Collection Method Collection Time Receive d Time (Source) Location / / Volume Laterality Blood 06/04/2021 1:47 PM 7:16 EDT AM EDT Resulting Agency Comment Spec In Lab Mike Miguel MD CHEMISTRY ORDERABLES Performing Organization Address City/State/[place] [address] (ABNORMAL) TSH (06/04/2021 1:47 PM EDT) P athologist Signature TSH 0.04 (L) 0.27 - 4.20 [facility] mcIU/mL [facility] Comment: Reference Interval (mcIU/mL): Females: ??First Trimester: 0.23-3.88 ??Second Trimester: 0.22-3.90 ??Third Trimester: 0.44-4.66 Specimen Anatomical Collection Method Collection Time Receive d Time (Source) Location / / Volume Laterality Blood 06/04/2021 1:47 PM 2 1:51 EDT PM EDT Resulting Agency Comment Spec In Lab Mike Miguel MD CHEMISTRY ORDERABLES Performing Organization Address [facility]/[place] [address] documented in this encounter Visit Diagnoses Diagnosis Thyroid cancer Malignant neoplasm of thyroid gland documented in this encounter Care Teams Real Estate Operations Manager Relationship Specialty Start Date End Date Viki Elaine PA PCP - General Internal Medicine 12/04/[address] [place] [address] [place] [address] documented as of this encounter
--- OUTSIDE RECORDS SUMMARY | 2021-12-04 13:56 | XMS_ITS | Encounter Summary ---
:1955 Author Organization [facility] [place] [address] Care Team Providers Name Role Phone Viki Elaine Primary Care Provider [phone] Reason for Referral Consultation (Routine) - Authorized Specialty Diagnoses / Procedures Referred By Contact Refer red To Contact Radiation Oncology Diagnoses Thyroid cancer Mike Miguel MD [facility] Procedures Simulation for Radiation Therapy Planning [facility] [place] [address] [place] [address] Phone: Fax: Referral ID Status Reason Start Date Expiration Visits Visits Date Requested Authorized [id number] Authorized Consult, 03/25/2021 03/25/2022 2 2 Test & Treat Encounter Details Date Type Department Care Team Description 03/25/2021 Orders Only Radiation Oncology at Alvin Miguel MD Thyroid cancer [facility] Shady alvarado [place] [address] [place] [address] [phone] (Wo rk) Social History Tobacco Use Types [...] Hematology and Marija Baumann MD Oncology [facility] HEMATOLOGY ONCOL [place], [place] [address] (Wo rk) 12/16/2021 Scheduled View Only Radiation Oncology 12/17/2021 Scheduled View Only Radiation Oncology 12/18/2021 Scheduled View Only Radiation Oncology 12/18/2021 Infusion Hematology and Oncology 12/21/2021 Scheduled View Only Radiation Oncology 12/22/2021 Scheduled View Only Radiation Oncology Scheduled Orders Name Type Priority Associated Diagnoses Order S chedule Simulation for Radiation Procedures Routine Thyroid cancer O rdered: 03/25/2021 Therapy Planning documented as of this encounter Visit Diagnoses Diagnosis Thyroid cancer Malignant neoplasm of thyroid gland documented in this encounter Care Teams Ase Certified Technician Relationship Specialty Start Date End Date Viki Elaine PA PCP - General Internal Medicine 12/04/[address] [place] [address] [place] [address] documented as of this encounter
--- OUTSIDE RECORDS SUMMARY | 2021-12-04 13:56 | XMS_ITS | Encounter Summary ---
:1955 Author Organization [facility] [place] [address] Care Team Providers Name Role Phone Viki Elaine Primary Care Provider [phone] Encounter Details Date Type Department Care Team Description 12/09/2020 Telephone General Surgery at [facility] Fabienne De Dios MD [facility] [place] [address] GENERAL SURGERY [phone] [place] [address] (Wo rk) Social History Tobacco Use Types Packs/Day Years Used Date Never Smoker Financial Resource Strain Answer Date Recorded How [...] this encounter Miscellaneous Notes Telephone Encounter - Fabienne De Dios MD - 12/09/2020 2:07 PM EDT Called patient to go over CT and biopsy results. + for left lateral ivan metastases. Will book for total thyroidectomy, central neck dissection, and left lateral neck dissection, tentatively 01/07. documented in this encounter Plan of Treatment [...] Visit (TeleHealth) Hematology and BaumannMarija MD Oncology [facility] DR HEMATOLOGY [place] [address] (Wo rk) 12/16/2021 Scheduled View Only Radiation Oncology 12/17/2021 Scheduled View Only Radiation Oncology 12/18/2021 Scheduled View Only Radiation Oncology 12/18/2021 Infusion Hematology and Oncology 12/21/2021 Scheduled View Only Radiation Oncology 12/22/2021 Scheduled View Only Radiation Oncology documented as of this encounter Visit Diagnoses Not on filedocumented in this encounter Care Teams Manufacturing Assistant Relationship Specialty Start Date End Date Viki Elaine PA PCP - General Internal Medicine 12/04/[address] [place] [address] [place] [address] documented as of this encounter
--- OUTSIDE RECORDS SUMMARY | 2021-12-04 13:56 | XMS_ITS | Encounter Summary ---
:1955 Author Organization [facility] [place] [address] Care Team Providers Name Role Phone Viki Elaine Primary Care Provider [phone] Encounter Details Date Type Department Care Team Description 04/14/2021 Office Visit Radiation Oncology a t [facility] Thyroid cancer [facility] [place] [address] Social History Tobacco Use Types Packs/Day [...] place to sleep or slept in a chcf (including now)? Sex Assigned at Date Recorded Not on file documented as of this encounter Last Filed Vital Signs Vital Sign Reading Time Taken Comments Blood Pressure 120/72 04/14/2021 11:03 AM EST Pulse 63 04/14/2021 11:03 AM EST Temperature 36.1 ??C (96.9 ??F) 04/14/2021 11:03 AM EST Respiratory Rate 18 04/14/2021 11:03 AM EST Oxygen Saturation 100% 04/14/2021 11:03 AM EST Inhaled Oxygen Concentration - - Weight - - Height - - Body Mass Index - - documented in this encounter Progress Notes Jessica Oneal RN - 04/14/2021 11:00 AM EST Thyrogen given in right gluteal, see MAR for details. documented in this encounter Plan of Treatment [...] Hematology and BaumannMarija MD Oncology [facility] HEMATOLOGY ONCOL [place], [place] [address] (Wo rk) 12/16/2021 Scheduled View [...] Dose Rate Site thyrotropin vandana (Thyrogen) Given 04/14/2021 11:12 AM EST 0.9 mg injection 0.9 mg 0.9 mg, Intramuscular, ONCE, 1 dose, On Tue04/14/21 at 1115, Inject into the gluteus yudelka. Total volume = 1 mL of Thyrogen and 0.1 mL overfill added to account for loss in the IM syringe., Routine documented in this encounter Care Teams Gun Mechanic Relationship Specialty Start Date End Date Viki Elaine PA PCP - General Internal Medicine 12/04/[address] [place] [address] [place] [id number] documented as of this encounter
--- OUTSIDE RECORDS SUMMARY | 2021-12-04 13:56 | XMS_ITS | Encounter Summary ---
:1955 Author Organization [facility] [place] [address] Care Team Providers Name Role Phone Viki Elaine Primary Care Provider [phone] Reason for Visit Consultation (Routine) - Authorized Specialty Diagnoses / Procedures Referred By Contact Refer red To Contact Radiation Oncology Diagnoses Thyroid cancer Mike Miguel MD [facility] Rad Onc Office Procedures Simulation for Radiation Therapy Planning [facility] [place] [address] [place] [address] Phone: Fax: Referral ID Status Reason Start Date Expiration Visits Visits Date Requested Authorized [id number] Authorized Consult, 03/25/2021 03/25/2022 2 2 Test & Treat Encounter Details Date Type Department Care Team Description 04/16/2021 Procedure visit Radiation Oncology at Mike Miguel Thyroid cancer [facility] [place] [address] RADIATION ONCOLOGY [phone] [place], [place] [address] (Wo rk) Social History Tobacco [...] Sign Reading Time Taken Comments Blood Pressure 123/65 04/16/2021 3:15 PM EST Pulse 67 04/16/2021 3:15 PM EST Temperature - - Respiratory Rate - - Oxygen Saturation 100% 04/16/2021 3:15 PM EST Inhaled Oxygen Concentration - - Weight 75 kg (165 lb 6.4 oz) 04/16/2021 3:15 PM EST Height - - Body Mass Index 29.3 01/07/2021 6:23 AM EST documented in this encounter Patient Instructions Patient InstructionsSaray Costa RN - 04/16/2021 1:29 PM EST .Therapeutic I-131 Checklist for Outpatients All Criteria must [...] member or significant other can be contacted. spouse Yes Patient has an congressional assistant who can abide by these rules and has been briefed on radiation risks and precautions. Yes The Treating Physician/Authorized User has provided a Written Directive. documented in this encounter Progress Notes Mike Miguel MD - 04/16/2021 3:00 PM EST Outpatient Radioactive Iodine Administration Note PATIENT NAME:?? Lorin Cardona :?? 1955 ? DIAGNOSIS:?? 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 she has been on a low iodine diet for the last 2 weeks. The patient has been informed about the side effects, as well as the precautions during and after treatment with radioactive iodine. Physical Exam On examination, she is vitally stable. her Karnofsky is 90. HEENT exam is unremarkable. Chest is clear to auscultation bilaterally. Abdomen is soft, nontender, and nondistended. Labs: Recent Results (from the past 24 hour(s)) TSH Result Value Ref Range TSH >100.00 (H) 0.27 - 4.20 mcIU/mL Radioactive Iodine Administration: 80 mCi of 131I / 1 capsule swallowed by the patient. The patient tolerated the procedure well. her exposure rate at 1 meter is: Before administration of radioiodine: 0.01 mRem/H After administration of radioiodine: 23 mRem/H. Assessment and Plan: 1- Follow precautions/instructions as reveiwed 2- Wrist band placed to inform law officers of WELLER treatment 3- Radioactive iodine scan in 1 week. 4- Follow up in 6 weeks with TSH to adjust her thyroid hormone replacement. documented in this encounter Plan of Treatment [...] Visit (TeleHealth) Hematology and BaumannMarija MD Oncology [facility] HEMATOLOGY ONCOL [place], [place] [address] (Wo rk) 12/16/2021 Scheduled View Only Radiation Oncology 12/17/2021 Scheduled View Only Radiation Oncology 12/18/2021 Scheduled View Only Radiation Oncology 12/18/2021 Infusion Hematology and Oncology 12/21/2021 Scheduled View Only Radiation Oncology 12/22/2021 Scheduled View Only Radiation Oncology documented as of this encounter Visit Diagnoses Diagnosis Thyroid cancer Malignant neoplasm of thyroid gland documented in this encounter Care Teams City Editor Relationship Specialty Start Date End Date Viki Elaine PA PCP - General Internal Medicine 12/04/[address] [place] [address] [place] [address] documented as of this encounter
--- OUTSIDE RECORDS SUMMARY | 2021-12-04 13:56 | XMS_ITS | Encounter Summary ---
:1955 Author Organization [facility] [place] [address] Care Team Providers Name Role Phone Viki Elaine Primary Care Provider [phone] Reason for Visit Reason Onset Date Comments Appointment 03/20/2021 Encounter Details Date Type Department Care Team Description 03/20/2021 Telephone Endocrinology at [facility] Susie Meneses [facility] [place] [address] Social History Tobacco Use Types Packs/Day [...] this encounter Miscellaneous Notes Telephone Encounter - Susie Grullon I - 03/20/2021 9:00 AM EST Unable to contact patient to schedule from referral. Letter sent and referral closed documented in this encounter Plan of Treatment [...] Hematology and Marija Baumann MD Oncology [facility] HEMATOLOGY ONCOL [place], [place] [address] (Wo rk) 12/16/2021 Scheduled View Only Radiation Oncology 12/17/2021 Scheduled View Only Radiation Oncology 12/18/2021 Scheduled View Only Radiation Oncology 12/18/2021 Infusion Hematology and Oncology 12/21/2021 Scheduled View Only Radiation Oncology 12/22/2021 Scheduled View Only Radiation Oncology documented as of this encounter Visit Diagnoses Not on filedocumented in this encounter Care Teams Chemistry Quality Control Analyst Relationship Specialty Start Date End Date Viki Elaine PA PCP - General Internal Medicine 12/04/[address] [place] [address] [place] [address] documented as of this encounter
--- OUTSIDE RECORDS SUMMARY | 2021-12-04 13:56 | XMS_ITS | Encounter Summary ---
:1955 Author Organization [facility] [place] [address] Care Team Providers Name Role Phone Viki Elaine Primary Care Provider [phone] Encounter Details Date Type Department Care Team Description 03/09/2021 Orders Only General Surgery at Fabienne De Dios from [facility] MD Angy thyroid cancer [facility] [address] [place], [place] GENERAL SURGERY [address] [place] [address] [phone] (Wo rk) Social History Tobacco Use Types [...] Oncology [facility] HEMATOLOGY ONCOL [place], [place] [address] (Wo rk) 12/16/2021 Scheduled View Only Radiation Oncology 12/17/2021 Scheduled View Only Radiation Oncology 12/18/2021 Scheduled View Only Radiation Oncology 12/18/2021 Infusion Hematology and Oncology 12/21/2021 Scheduled View Only Radiation Oncology 12/22/2021 Scheduled View Only Radiation Oncology documented as of this encounter Results (ABNORMAL) Thyroglobulin (03/10/2021 11:05 AM EST) Analysis Performed At Path logist Time Signature Thyroglobulin Not Perf <=54.9 AKASH MERLY ng/mL [facility] Comment: Thyroglobulin cannot be accurately measu red by the [facility] Chemistry immunoassay method because this specimen contains an ti-thyroglobulin antibody. This order for thyroglobulin measurement by immunoa ssay has been cancelled, and a reflex order for thyroglobulin measurement by m ass spectrometry has been placed. Subsequent thyroglobulin measurements fo r this patient should also be performed by mass spectrometry. Any additional ord ers should be placed using the [facility] Lab Request [id number] indicating requested lab is Thyroglobulin by LC-MS/MS, [facility] test [id number]. If Thyroglobulin Antibody testing is needed use [id number] Thyroglobulin Ab. Thyroglob Ab 53.6 (H) 0.0 - 40.0 IU/mL [facility] Specimen Anatomical Collection Method Collection Time Receive d Time (Source) Location / / Volume Laterality Blood 03/10/2021 11:05 03/10/2021 1:13 AM EST PM EST Resulting Agency Comment Spec In Lab Fabienne De Dios MD CHEMISTRY ORDERABLES Performing Organization Address City/State/[place] [address] documented in this encounter Visit Diagnoses Diagnosis Metastasis from thyroid cancer documented in this encounter Care Teams Bench Mechanic Relationship Specialty Start Date End Date Viki Elaine PA PCP - General Internal Medicine 12/04/[address] [place] [address] [place] [address] documented as of this encounter
--- OUTSIDE RECORDS SUMMARY | 2021-12-04 13:56 | XMS_ITS | Encounter Summary ---
:1955 Author Organization [facility] [place] [address] Care Team Providers Name Role Phone Viki Elaine Primary Care Provider Reason for Referral Consultation (Routine) - Closed Specialty Diagnoses / Procedures Referred By Contact Refer red To Contact Radiation Oncology Diagnoses Metastasis from thyroid cancer Fabienne De Dios Schaner, Philip E, MD MD [facility] D Idania RADIATION ONCOLOGY [place] [address] [place] [address] Referral ID Status Reason Start Date Expiration Date Visits V isits Requested Authorized [id number] Closed Consult, 01/23/2021 01/23/2022 1 1 Test & Treat Encounter Details Date Type Department Care Team Description 01/23/2021 Telephone General Surgery at [facility] Fabienne De Dios MD [facility] Departmentjose roberto [facility] [place] [address] GENERAL SURGERY [phone] [place] [id number] (Wo rk) Social History Tobacco Use Types [...] Encounter - Fabienne De Dios MD - 01/23/2021 4:08 PM EST I called . Lorin Snider Brendan today to discuss the results of her pathology. Specifically, this demonstrated Procedure: ??Total thyroidectomy Tumor ?Tumor Focality: ??Multifocal ?Tumor [...] Histologic Type: ??Papillary carcinoma, classic (usual, conventional) . SYNOPTIC ? Angioinvasion (vascular invasion): ??Not identified ? [...] IV per prior FNA specimen (10- ? [id number])) ? Size of Largest Metastatic Deposit: ??1.5 [...] ? Parathyroid Gland Findings: ??Within normal limits She is doing well. Her voice sounds normal. Even though she had three parathyroid incidentally removed, she is not complaining of perioral numbness/tingling, numbness/tingling in the hands, or muscle spasms. She will taper off her calcium supplementation. I answered her questions, and we will discuss further at her regularly-scheduled postoperative follow up appointment. documented in this encounter Plan of Treatment [...] (TeleHealth) Hematology and Marija Baumann MD Oncology [facility] DR HEMATOLOGY ONCOL [place], [place] [address] (Wo rk) 12/16/2021 Scheduled View Only Radiation Oncology 12/17/2021 Scheduled View Only Radiation Oncology 12/18/2021 Scheduled View Only Radiation Oncology 12/18/2021 Infusion Hematology and Oncology 12/21/2021 Scheduled View Only Radiation Oncology 12/22/2021 Scheduled View Only Radiation Oncology Scheduled Referrals Name Type Priority Associated Diagnoses Order S chedule Referral to Outpatient Referral Routine Metastasis from Order ed: Radiation Oncology thyroid cancer 021 documented as of this encounter Visit Diagnoses Diagnosis Metastasis from thyroid cancer documented in this encounter Care Teams Hydroelectric Station Operator Relationship Specialty Start Date End Date Viki Elaine PA PCP - General Internal Medicine 12/04/[address] [place] [address] [place] [id number] documented as of this encounter
--- OUTSIDE RECORDS SUMMARY | 2021-12-04 13:56 | XMS_ITS | Encounter Summary ---
:1955 Author Organization [facility] Address [address] [place] [address] Care Team Providers Name Role Phone Parviz Lamb MD Primary Care Provider Encounter Details Date Type Department Care Team Description 11/05/2020 Ancillary Procedure Radiology Library at Parviz Lamb MD [facility] [address] [place] [address] [place] [address] [phone] Social History Tobacco Use Types Packs/Day Years Used Date Never Assessed Financial Resource Strain Answer Date Recorded How [...] (TeleHealth) Hematology and BaumannMarija MD Oncology [facility] DR HEMATOLOGY ONCOL [place], [place] [address] (Wo rk) 12/16/2021 Scheduled View Only Radiation Oncology 12/17/2021 Scheduled View Only Radiation Oncology 12/18/2021 Scheduled View Only Radiation Oncology 12/18/2021 Infusion Hematology and Oncology 12/21/2021 Scheduled View Only Radiation Oncology 12/22/2021 Scheduled View Only Radiation Oncology documented as of this encounter Procedures Procedure Name Priority Date/Time Associated Comments Diagnosis FILM LIBRARY STORAGE Routine 11/05/2020 12:00 AM Results for this ONLY ULTRASOUND EDT procedure ar e in STUDY the results section. documented in this encounter Results Film Library- Storage Only Ultrasound Study (11/05/2020 12:00 AM EDT) Specimen (Source) Anatomical Location Collection Method / Collectio n Time Received Time / Laterality Volume Narrative [facility] - 11/11/2020 1:37 PM EDT This exam is auto-finalizing. It's purpo se is for storage only. Parviz Lamb MD IMG FILM LIBRARY ORDERABLES Performing Organization Address City/State/ZIP Code Phon e Number [facility] [place], [place] documented in this encounter Visit Diagnoses Not on filedocumented in this encounter Care Teams Yoke Presser Relationship Specialty Start Date End Date Parviz Lamb MD PCP - General 12/30/09 12/03/[address] [place] [address] [place] [address] documented as of this encounter
--- OUTSIDE RECORDS SUMMARY | 2021-12-04 13:56 | XMS_ITS | Encounter Summary ---
:1955 Author Organization [facility] [place] [address] Care Team Providers Name Role Phone Viki Elaine Primary Care Provider [phone] Reason for Referral Consultation (Routine) - Duplicate Referral Specialty Diagnoses / Procedures Referred By Contact Refer red To Contact Radiation Oncology Diagnoses Primary thyroid cancer Fabienne De Dios Schaner, Philip E, MD MD [facility] RADIATION ONCOLOGY [place] [address] Referral ID Status Reason Start Expiration Visits Visits Date Date Requested Authorized [id number] Duplicate Consult, 02/19/2021 02/19/2022 1 1 Referral Test & Treat Consultation (Routine) - Closed Specialty Diagnoses / Procedures Referred By Contact Refer red To Contact Endocrinology Diagnoses Primary thyroid cancer Fabienne De Dios, [facility] 3b MD [facility] [place] [address] [place] [address] Referral ID Status Reason Start Date Expiration Date Visits V isits Requested Authorized [id number] Closed Consult, 02/19/2021 02/19/2022 1 1 Test & Treat Encounter Details Date Type Department Care Team Description 02/19/2021 Multidisciplinary Care General Surgery Teresita De Dios ary thyroid Committee [place] [facility] [place]ienne Travis MD [facility] [address] [place], [place] GENERAL SURGERY [address] MARY HAYNES [phone] [facility] Social History Tobacco Use Types Packs/Day Years [...] documented as of this encounter Progress Notes Fabienne De Dios MD - 02/19/2021 4:24 PM EST Endocrine - Tumor Board Note Date Presented: 02/19/2021 Presenting Physician: Va Diagnosis/Tumor Site: Thyroid Is this Metastatic Disease: Yes (to lymph nodes) Synopsis of History/HPI: ??Lorin Cardona??is a 65 y.o.??year old female??with ??multiple thyroidnodules??and FNA of the TR 5 nodule in the right lobe??demonstrating suspicious for malignancy (Vendor 5)??cytology. ??She has a very suspicious sonographically node in the left central neck as well as lymphadenopathy in the left lateral neck that biopsied positive by both cytology and Tg washout. CTs of her neck and chest were negative for additional sites of disease. She underwent total thyroidectomy, central neck dissection, and left lateral neck dissection on Imaging: Ultrasound (De Dios office note 12/04/20) CT Neck/Chest (12/04/20) Pathology/Histology: Procedure: ??Total thyroidectomy Tumor ?Tumor Focality: ??Multifocal [...] IV per prior FNA specimen (10- ? [id number])) ? Size of Largest Metastatic Deposit: ??1.5 cm ? Extranodal Extension (BLADIMIR): ??Not identified ?Number of Lymph Nodes Examined: ??23 ? Prashant Level(s) Examined: ??Level ; ??Left lateral Stage: TNM Descriptors: ??m (multiple primary tumors) ?pT Category: ??pT2 ?pN Category: ??pN1b Clinical Data (Exams, Labs, etc.): post-operative Tg due 02/20 Molecular Pathology Results: none Clinical Trial Availability: N/A Recommendations: Needs radioactive iodine, followed by standard surveillance. Radiation Oncology consult and endocrinology referralplaced. DISCLAIMER: The patient was discussed and the tumor board made recommendations but it is ultimately up to the treatment provider(s) and the patient to determine the patient???s care. documented in this encounter Plan of Treatment [...] (TeleHealth) Hematology and Marija Baumann MD Oncology [facility] DR HEMATOLOGY ONCOL [place], [place] [address] (Wo rk) 12/16/2021 Scheduled View Only Radiation Oncology 12/17/2021 Scheduled View Only Radiation Oncology 12/18/2021 Scheduled View Only Radiation Oncology 12/18/2021 Infusion Hematology and Oncology 12/21/2021 Scheduled View Only Radiation Oncology 12/22/2021 Scheduled View Only Radiation Oncology Scheduled Referrals Name Type Priority Associated Order Schedule Diagnoses Referral to Outpatient Referral Routine Primary thyroid Order ed: Endocrinology cancer 02/19/2021 Referral to Radiation Outpatient Referral Routine Primary thyr oid Ordered: Oncology cancer 02/19/2021 documented as of this encounter Visit Diagnoses Diagnosis Primary thyroid cancer Malignant neoplasm of thyroid gland documented in this encounter Care Teams Account Support Rep Relationship Specialty Start Date End Date Viki Elaine PA PCP - General Internal Medicine 12/04/[address] [place] [address] [place] [address] documented as of this encounter
--- OUTSIDE RECORDS SUMMARY | 2021-12-04 13:56 | XMS_ITS | Encounter Summary ---
:1955 Author Organization [facility] Address [address] [place] [address] Care Team Providers Name Role Phone Parviz Lamb MD Primary Care Provider Encounter Details Date Type Department Care Team Description 09/01/2018 Ancillary Procedure Radiology Library at Parviz Lamb MD [facility] [address] [place] [address] [place] [address] [phone] Social History Tobacco Use Types Packs/Day Years [...] (TeleHealth) Hematology and Marija Baumann MD Oncology [facility] HEMATOLOGY ONCOL [place], [place] [address] (Wo rk) 12/16/2021 Scheduled View Only Radiation Oncology 12/17/2021 Scheduled View Only Radiation Oncology 12/18/2021 Scheduled View Only Radiation Oncology 12/18/2021 Infusion Hematology and Oncology 12/21/2021 Scheduled View Only Radiation Oncology 12/22/2021 Scheduled View Only Radiation Oncology documented as of this encounter Procedures Procedure Name Priority Date/Time Associated Diagnosis Comme nts FILM LIBRARY- Routine 09/01/2018 12:00 AM Results for this STORAGE ONLY DXA EDT procedure a re in IMAGES the results section. documented in this encounter Results Film Library- Storage Only DXA Images (09/01/2018 12:00 AM EDT) Specimen (Source) Anatomical Location Collection Method / Collectio n Time Received Time / Laterality Volume Narrative RONY - 12/02/2020 3:09 PM EDT This exam is auto-finalizing. It's purpo se is for storage only. Parviz Lamb MD IMTyshawn FILM LIBRARY ORDERABLES Performing Organization Address City/State/ZIP Code Phon e Number [place], [place] documented in this encounter Visit Diagnoses Not on filedocumented in this encounter Care Teams Pmp Relationship Specialty Start Date End Date Parviz Lamb MD PCP - General 12/30/09 12/03/[address] [place] [address] [place], [place] [address] documented as of this encounter
--- OUTSIDE RECORDS SUMMARY | 2021-12-04 13:56 | XMS_ITS | Encounter Summary ---
:1955 Author Organization [facility] [address] Care Team Providers Name Role Phone Viki Elaine Primary Care Provider [phone] Reason for Visit Reason Onset Date Comments Other 01/26/2021 RAD/ONC-LVM - NPW @ 12:30 Encounter Details Date Type Department Care Team Description 01/26/2021 Telephone Radiation Oncology at Brenda Bowden Ot her (RAD/ONC-LVM - NPW [facility] [place] 03/05/21 @ 12:30) [place] [address] Social History Tobacco Use Types Packs/Day [...] Marija Baumann MD Oncology [facility] DR HEMATOLOGY ONCOL [place], [place] [address] (Wo rk) 12/16/2021 Scheduled View Only Radiation Oncology 12/17/2021 Scheduled View Only Radiation Oncology 12/18/2021 Scheduled View Only Radiation Oncology 12/18/2021 Infusion Hematology and Oncology 12/21/2021 Scheduled View Only Radiation Oncology 12/22/2021 Scheduled View Only Radiation Oncology documented as of this encounter Visit Diagnoses Not on filedocumented in this encounter Care Teams Online Banking Specialist Relationship Specialty Start Date End Date Viki Elaine PA PCP - General Internal Medicine 12/04/[address] [place] [address] [place] [address] documented as of this encounter
--- OUTSIDE RECORDS SUMMARY | 2021-12-04 13:56 | XMS_ITS | Encounter Summary ---
:1955 Author Organization [place] [address] Care Team Providers Name Role Phone Viki Elaine Primary Care Provider [phone] Reason for Referral Diagnostic Test (Routine) - Closed Specialty Diagnoses / Procedures Referred By Contact Refer red To Contact Radiology Diagnoses Thyroid cancer Mike Miguel MD [facility] Rad Nuclear Med Procedures NM I-131 Whole Body Scan Post therapy [facility] [place] [address] [place] [address] Referral ID Status Reason Start Date Expiration Date Visits V isits Requested Authorized [id number] Closed Specialty 04/01/2021 09/29/2022 1 1 Service Requested Encounter Details Date Type Department Care Team Description 04/01/2021 Orders Only Radiation Oncology at Alvin Miguel MD Thyroid cancer [facility] Shady alvarado [place] [address] [place] [address] [phone] (Wo rk) Social History Tobacco Use Types [...] MD Oncology [facility] HEMATOLOGY ONCOL [place], [place] [address] (Wo rk) 12/16/2021 Scheduled View Only Radiation Oncology 12/17/2021 Scheduled View Only Radiation Oncology 12/18/2021 Scheduled View Only Radiation Oncology 12/18/2021 Infusion Hematology and Oncology 12/21/2021 Scheduled View Only Radiation Oncology 12/22/2021 Scheduled View Only Radiation Oncology documented as of this encounter Results NM I-131 Whole Body Scan Post therapy (04/23/2021 12:07 PM EDT) Anatomical Region Laterality Modality Nuclear Medicine Specimen (Source) Anatomical Location Collection Method / Collectio n Time Received Time / Laterality Volume Impressions 04/23/2021 4:13 PM EDT Activity is present in remnant thyroid tissue. ?? No metastases are seen. I have personally reviewed the image(s) and the resident's interpretation and agree with the findings, Nomi Whittaker MD at 04/23/2021 4:13 PM Thank you for letting us participate in the care of this patient. ??If you are a health care provider and have any questi ons regarding this report, please contact the number below. ??For patients who have questions please contact the health med care manager that requested your imaging first. ? Electronically signed by: Tylor Hernandez, [facility] ([phone]), at 04/23/2021 4:13 PM Narrative 04/23/2021 4:13 PM EDT EXAMINATION: NM I-131 WHOLE BODY SCAN POST THERAPY CLINICAL HISTORY: s/p I-131 for thyroid cancer TECHNIQUE: A therapeutic dose of 80 mCi of iodine-131 was administered on 04/17/2021. A whole body scan was perform ed 6 days later with images obtained in the anterior and posterior projections. A magnification view of the neck with a supplemental transmission scan was also obtained COMPARISON: CT neck 11/26/2020 FINDINGS: Minimal tracer uptake in the thyroid jasiel t is consistent with remnant functioning thyroid tissue. Normal activity in all o ther regions of the body including salivary glands and oropharynx. Procedure Note Nomi Whittaker MD - 04/23/2021 EXAMINATION: NM I-131 WHOLE BODY SCAN PO ST THERAPY CLINICAL HISTORY: s/p I-131 for thyroid cancer TECHNIQUE: A therapeutic dose of 80 mCi of iodine-131 was administered on 04/17/2021. A whole body scan was perform ed 6 days later with images obtained in the anterior and posterior projections. A magnification view of the neck with a supplemental transmission scan was also obtained COMPARISON: CT neck 11/26/2020 FINDINGS: Minimal tracer uptake in the thyroid jasiel t is consistent with remnant functioning thyroid tissue. Normal activity in all o ther regions of the body including salivary glands and oropharynx. IMPRESSION Activity is present in remnant thyroid t issue. No metastases are seen. I have personally reviewed the image(s) and the resident's interpretation and agree with the findings, Nomi Whittaker MD at 04/23/2021 4:13 PM Thank you for letting us participate in the care of this patient. If you are a health care provider and have any questi ons regarding this report, please contact the number below. For patients w ho have questions please contact the health med care manager that requested your imaging first. Electronically signed by: Tylor Hernandez, [facility] ([phone]), at 04/23/2021 4:13 PM Mike Miguel MD IM NM ORDERABLES (ABNORMAL) TSH (04/16/2021 11:52 AM EST) P athologist Signature TSH >100.00 0.27 - [facility] (H) 4.20 [facility] mcIU/mL [facility] Comment: Reference Interval (mcIU/mL): Females: ??First Trimester: 0.23-3.88 ??Second Trimester: 0.22-3.90 ??Third Trimester: 0.44-4.66 Specimen Anatomical Collection Method Collection Time Receive d Time (Source) Location / / Volume Laterality Blood 04/16/2021 11:52 04/16/2021 AM EST 12:22 PM EST Resulting Agency Comment Spec In Lab Mike Miguel MD CHEMISTRY ORDERABLES Performing Organization Address City/State/[place] [address] [facility] [address] Thyroglobulin (04/16/2021 11:52 AM EST) Analysis Performed At Patho logist Time Signature Thyroglobulin Not Perf <=54.9 [facility] ng/mL [facility] Comment: Thyroglobulin cannot be accurately measu red by the [facility] Chemistry immunoassay method because this specimen contains an ti-thyroglobulin antibody. This order for thyroglobulin measurement by immunoa ssay has been cancelled, and a reflex order for thyroglobulin measurement by m ass spectrometry has been placed. Subsequent thyroglobulin measurements fo r this patient should also be performed by mass spectrometry. Any additional ord ers should be placed using the [facility] Request [id number] indicating requested lab is Thyroglobulin by LC-MS/MS, [facility] test [id number]. If Thyroglobulin Antibody testing is needed use [id number] Thyroglobulin Ab. Thyroglob Ab 20.9 0.0 - 40.0 IU/mL [facility] Specimen Anatomical Collection Method Collection Time Receive d Time (Source) Location / / Volume Laterality Blood 04/16/2021 11:52 04/17/2021 7:32 AM EST AM EST Resulting Agency Comment Spec In Lab Mike Miguel MD CHEMISTRY ORDERABLES Performing Organization Address City/State/ZIP Code Phon e Number [address] documented in this encounter Visit Diagnoses Diagnosis Thyroid cancer Malignant neoplasm of thyroid gland Thyroid cancer Malignant neoplasm of thyroid gland documented in this encounter Care Teams Precipitate Washer Relationship Specialty Start Date End Date Viki Elaine PA PCP - General Internal Medicine 12/04/[address] [place] [address] [place] [address] documented as of this encounter
--- OUTSIDE RECORDS SUMMARY | 2021-12-04 13:56 | XMS_ITS | Encounter Summary ---
:1955 Author Organization [facility] [place] [address] Care Team Providers Name Role Phone Viki Elaine Primary Care Provider [phone] Encounter Details Date Type Department Care Team Description 01/13/2021 Clinical Support General Surgery at [facility] Portion of [facility] drain ret ained [place], [place] [address] encounter [phone] Social History Tobacco Use Types Packs/Day Years [...] documented as of this encounter Progress Notes Valorie Bolden RN - 01/13/2021 10:00 AM EST Date: 01/13/2021 Procedure(s): THYROIDECTOMY, FOR MALIGNANCY, LIMITED NECK DISSECTION (WRVU 22.01) FACIAL NERVE MONITORING, SETUP LARYNGEAL (WRVU 1.57) @CERVICAL LYMPHADENECTOMY (MODIFIED RADICAL NECK DISSECTION) (WRVU 23.95) ?? Time: 1:16 PM Procedure: Surgeon: Dr Arias Drain Site: Lateral neck Amount of Time Drain was in: 6 days Drainage volume in past 24 hours: 10 Documentation of drain removal: The patient is identified as Lorin Cardona. Lorin exposed the drain site and was comfortably positioned on exam table. I explained as I proceeded what I was doing. The suction on the collection bulb was released and the suture cut thus removing the suture from the skin. Lorin was instructed to take a deep breath;at which time the drain was easily removed intact. Bacitracin ointment on dry sterile gauze was placed at the drain site and secured with tape. Lorin tolerated the procedure with well. Patient Education: Lorin Cardona was instructed to keep the drain site covered with bacitracin and gauze while it continues to drain (usually 24-48 hours). The dressing should be changed when wet. I reviewed with Lorin the following information which the received in a written form. All questions were answered and concerns addressed. 1. You will need to cover your drain site while it is draining. This usually lasts 24-48 hours. Yourdressing needs to be changed when it becomes wet. A small amount of drainage is normal. Apply a small amount of Bacitracin ointment to the gauze and secure with tape over your drain site. 2. You may develop a seroma (a collection of fluid) at or around the drain site. A seroma may be firm or soft and can vary in shapes and size. This is not a medical emergency, but it is something to call the General Surgery nurses to discuss further instructions. The nurse's phone number is [phone]. 3. Call the General Surgery nurses or the General Surgery Doctor video conference specialist if you develop any of the following: A. Fever greater than 100.5 or chills. B. Continual drainage from your drain site. C. Redness / swelling of your drain site or surgical incision. Should you develop redness zach the area with a permanent marker so you can tell if it is worsening. D. Pain that is not controlled with Tylenol (acetaminophen), Advil (ibuprofen) or prescription painmedication. documented in this encounter Plan of Treatment [...] and Marija Baumann MD Oncology [facility] HEMATOLOGY ONCOL [place], [place] [address] (Wo rk) 12/16/2021 Scheduled View Only Radiation Oncology 12/17/2021 Scheduled View Only Radiation Oncology 12/18/2021 Scheduled View Only Radiation Oncology 12/18/2021 Infusion Hematology and Oncology 12/21/2021 Scheduled View Only Radiation Oncology 12/22/2021 Scheduled View Only Radiation Oncology documented as of this encounter Visit Diagnoses Diagnosis Portion of Alexandre Peguero drain retained after removal, subsequent encounter documented in this encounter Care Teams Private Equity Associate Relationship Specialty Start Date End Date Viki Ealine PA PCP - General Internal Medicine 12/04/[address] [place] [address] [place] [address] documented as of this encounter
--- OUTSIDE RECORDS SUMMARY | 2021-12-04 13:56 | XMS_ITS | Encounter Summary ---
:1955 Author Organization [place] [address] Care Team Providers Name Role Phone Viki Elaine Primary Care Provider [phone] Encounter Details Date Type Department Care Team Description 03/23/2021 Telephone General Surgery at [facility] Fabienne De Dios MD [facility] [place] [address] GENERAL SURGERY [phone] [place] [address] (Wo rk) Social History Tobacco Use Types [...] Encounter - Fabienne De Dios MD - 03/23/2021 2:05 PM EST Called patient to notify her of the undetectable Tg by LC/MS. Will have Dr. Miguel's office get in touch with her to schedule. I also sent a note to endocrinology, as it looks like the referral was prematurely closed. documented in this encounter Plan of Treatment [...] (TeleHealth) Hematology and Marija Baumann MD Oncology [facility] HEMATOLOGY ONCOL [place], [place] [address] (Wo rk) 12/16/2021 Scheduled View Only Radiation Oncology 12/17/2021 Scheduled View Only Radiation Oncology 12/18/2021 Scheduled View Only Radiation Oncology 12/18/2021 Infusion Hematology and Oncology 12/21/2021 Scheduled View Only Radiation Oncology 12/22/2021 Scheduled View Only Radiation Oncology documented as of this encounter Visit Diagnoses Not on filedocumented in this encounter Care Teams Geospatial Imagery Intelligence Analyst Relationship Specialty Start Date End Date Viki Elaine PA PCP - General Internal Medicine 12/04/[address] [place] [address] [place] [address] documented as of this encounter
--- OUTSIDE RECORDS SUMMARY | 2021-12-04 13:56 | XMS_ITS | Encounter Summary ---
:1955 Author Organization [place] [address] Care Team Providers Name Role Phone Viki Elaine Primary Care Provider [phone] Reason for Referral Diagnostic Test (Routine) - Closed Specialty Diagnoses / Procedures Referred By Contact Refer red To Contact Radiology Diagnoses Papillary thyroid carcinoma Fabienne De Dios MD [facility] Rad Ct Scan Procedures CT Neck Soft Tissue w Contrast (Generic) CT Neck Soft Tissue wwo Contrast [facility] [place] [address] [place] [address] Referral ID Status Reason Start Date Expiration Date Visits V isits Requested Authorized [id number] Closed Specialty 12/04/2020 06/04/2022 1 1 Service Requested Diagnostic Test (Routine) - Closed Specialty Diagnoses / Procedures Referred By Contact Refer red To Contact Radiology Diagnoses Papillary thyroid carcinoma Fabienne De Dios MD [facility] Rad Ct Scan Procedures CT Chest w Contrast [facility] [place] [address] [place] [address] Referral ID Status Reason Start Date Expiration Date Visits V isits Requested Authorized [id number] Closed Specialty 12/04/2020 06/04/2022 1 1 Service Requested Reason for Visit Diagnostic Test (Routine) - Closed Specialty Diagnoses / Procedures Referred By Contact Refer red To Contact Radiology Diagnoses Papillary thyroid carcinoma Fabienne De Dios MD [facility] Rad Ct Scan Procedures CT Neck Soft Tissue w Contrast (Generic) CT Neck Soft Tissue wwo Contrast [facility] DR Quintanilla [facility] [place] [address] [place] [address] Referral ID Status Reason Start Date Expiration Date Visits V isits Requested Authorized [id number] Closed Specialty 12/04/2020 06/04/2022 1 1 Service Requested Encounter Details Date Type Department Care Team Description 12/04/[address] Scan at [facility], Papillary thyroid [facility] Tylor [address] [facility] [id number] GENERAL SURGERY [phone] [place], [place] [address] Social History Tobacco Use Types [...] place to sleep or slept in a detention (including now)? Sex Assigned at Date Recorded Not on file documented as of this encounter Medications at Time of Discharge Medication Sig Dispensed Refills Start Date End Date docosahexaenoic acid/epa Take by mouth 0 (FISH OIL ORAL) daily. Taking 1000mg every other day multivitamin Capsule Take 1 capsule by 0 mouth every other day. ascorbic acid, Vitamin C, Take 500 mg by 0 (Vitamin C) 500 mg Tablet mouth every other day. calcium carbonate (CALCIUM Take 1,200 mg by 0 01/08/2021 300 ORAL) mouth daily. fluticasone propionate 1 spray by Each 0 06/04/2021 (Flonase) 50 mcg/actuation Nare route as Allison, Suspension needed for Rhinitis. omeprazole (PriLOSEC) 20 mg Take 20 mg by 0 10/14/2021 Capsule, Delayed mouth as needed. Release(E.C.) Ibuprofen 200 mg Capsule Take by mouth as 0 01/08/2021 needed. acetaminophen (Tylenol) 500 Take 1,000 mg by 0 01/08/2021 mg Tablet mouth as needed for Pain. documented as of this encounter Plan of [...] [facility] HEMATOLOGY ONCOL [place], [place] [address] (Wo rk) 12/16/2021 Scheduled View Only Radiation Oncology 12/17/2021 Scheduled View Only Radiation Oncology 12/18/2021 Scheduled View Only Radiation Oncology 12/18/2021 Infusion Hematology and Oncology 12/21/2021 Scheduled View Only Radiation Oncology 12/22/2021 Scheduled View Only Radiation Oncology documented as of this encounter Procedures Procedure Name Priority Date/Time Associated Diagnosis Comme nts CT CHEST W CONTRAST Routine 12/04/2020 2:36 PM Papillary thyro id Results for this EDT carcinoma procedure are i n the results section. CT NECK SOFT TISSUE Routine 12/04/2020 2:36 PM Papillary thyro id Results for this W CONTRAST EDT carcinoma procedure are i n the results section. documented in this encounter Results CT Neck Soft Tissue w Contrast (Generic) (12/04/2020 2:36 PM EDT) Anatomical Region Laterality Modality Neck, Head Computed Tomography Specimen (Source) Anatomical Collection Method Collection Time Re ceived Time Location / / Volume Laterality 12/04/2020 2:58 PM EDT Impressions 12/04/2020 4:42 PM EDT Diffusely heterogeneous thyroid with multiple abnormal lymph nodes, largest on the left side. Findings are consistent w ith regional ivan metastatic disease. Thank you for letting us participate in the care of this patient. ??If you are a health care provider and have any questi ons regarding this report, please contact the number below. ??For patients who have questions please contact the health rn transitional care that requested your imaging first. ? Narrative 12/04/2020 4:42 PM EDT EXAMINATION: CT NECK SOFT TISSUE W CONTRAST (GENERIC) CLINICAL HISTORY: Thyroid cancer, stagin g Patient with PTC highly suspicious left lateral lymph nodes that are very low in level 4, ? mediastinal extension of lymp hadenopathy TECHNIQUE: CT neck performed after the intravenous administration of contrast. Administered 110.0 ml of OMNIPAQUE 350.00 mg/ml. COMPARISON: Ultrasound 11/05/2020 FINDINGS: The paraclinoid is diffusely heterogeneo us with multiple small calcifications and right anterior thalamus nodule. Ther e is abnormal lymph node just inferior to the left thyroid lobe along the left trachea measuring approximately 1.4 x 1.1 cm on series 6 image 256. This node has high attenuation within it concerning for metastatic disease. 2 add itional nodes are present along the posterior margin of the left jugular vei n, both of these are small, but demonstrate small stippled calcification s concerning for metastatic disease (series 6 image 247). A small lymph node s present adjacent to the right thyroid lobe on series 6 image 248 measuring 1.1 x 0.8 cm. This node also has small areas of hyperattenuation within it. No pathologic adenopathy elsewhere. No other soft tissue mass. There is no osse ous lesion. Procedure Note Armand Duarte MD - 12/04/2020Format ting of this note might be different from the original. EXAMINATION: CT NECK SOFT TISSUE W CONTR AST (GENERIC) CLINICAL HISTORY: Thyroid cancer, stagin g Patient with PTC highly suspicious left lateral lymph nodes that are very low in level 4, ? mediastinal extension of lymp hadenopathy TECHNIQUE: CT neck performed after the intravenous administration of contrast. Administered 110.0 ml of OMNIPAQUE 350.00 mg/ml. COMPARISON: Ultrasound 11/05/2020 FINDINGS: The paraclinoid is diffusely heterogeneo us with multiple small calcifications and right anterior thalamus nodule. Ther e is abnormal lymph node just inferior to the left thyroid lobe along the left trachea measuring approximately 1.4 x 1.1 cm on series 6 image 256. This node has high attenuation within it concerning for metastatic disease. 2 add itional nodes are present along the posterior margin of the left jugular vei n, both of these are small, but demonstrate small stippled calcification s concerning for metastatic disease (series 6 image 247). A small lymph node s present adjacent to the right thyroid lobe on series 6 image 248 measuring 1.1 x 0.8 cm. This node also has small areas of hyperattenuation within it. No pathologic adenopathy elsewhere. No other soft tissue mass. There is no osse ous lesion. IMPRESSION Diffusely heterogeneous thyroid with mul tiple abnormal lymph nodes, largest on the left side. Findings are consistent w ith regional ivan metastatic disease. Thank you for letting us participate in the care of this patient. If you are a health care provider and have any questi ons regarding this report, please contact the number below. For patients w ho have questions please contact the health rn transitional care that requested your imaging first. Fabienne De Dios MD IMG CT ORDERABLES CT Chest w Contrast (12/04/2020 2:36 PM EDT) Anatomical Region Laterality Modality Chest Computed Tomography Specimen (Source) Anatomical Collection Method Collection Time Re ceived Time Location / / Volume Laterality 12/04/2020 2:58 PM EDT Impressions 12/04/2020 4:24 PM EDT No thoracic metastatic disease identified. I have personally reviewed the image(s) and the resident's interpretation and agree with the findings, Archana Avalos MD at 12/04/2020 4:24 PM Thank you for letting us participate in the care of this patient. ??If you are a health care provider and have any questi ons regarding this report, please contact the number below. ??For patients who have questions please contact the health rn transitional care that requested your imaging first. ? Narrative 12/04/2020 4:24 PM EDT EXAMINATION: CT CHEST W CONTRAST CLINICAL HISTORY: Thyroid cancer, stagin g PTC with highly suspicous left lateral l ymph nodes very low in level 4, ? mediastinal extension TECHNIQUE: 3 mm thick axial contiguous s ections were obtained through the chest via helical acquisition after the intrav enous administration of contrast, 110 cc IV Omnipaque 350. Thin-section reconstru ctions as well as coronal and sagittal reformatted images were generated. COMPARISON: None FINDINGS: Pulmonary parenchyma: No pulmonary nodul es seen. Airways: No significant findings. Pleura: No significant findings. Lymph nodes: Prominent but nonpathologic -appearing axillary lymph nodes given large fatty darinel. No mediastinal adenopa thy. Heart, pericardium, and great vessels: N o central pulmonary artery filling defects. Other mediastinal structures: No signifi cant findings. Lower neck: CT neck reported separately. Upper abdomen: Punctate region of hypere nhancement in the hepatic dome, likely represents arterially enhancing hemangio ma. Body wall soft tissues: No significant f indings. Skeletal structures: No significant find ings. Procedure Note Archana Avalos MD - 12/04/2020Formatt ing of this note might be different from the original. EXAMINATION: CT CHEST W CONTRAST CLINICAL HISTORY: Thyroid cancer, stagin g PTC with highly suspicous left lateral l ymph nodes very low in level 4, ? mediastinal extension TECHNIQUE: 3 mm thick axial contiguous s ections were obtained through the chest via helical acquisition after the intrav enous administration of contrast, 110 cc IV Omnipaque 350. Thin-section reconstru ctions as well as coronal and sagittal reformatted images were generated. COMPARISON: None FINDINGS: Pulmonary parenchyma: No pulmonary nodul es seen. Airways: No significant findings. Pleura: No significant findings. Lymph nodes: Prominent but nonpathologic -appearing axillary lymph nodes given large fatty darinel. No mediastinal adenopa thy. Heart, pericardium, and great vessels: N o central pulmonary artery filling defects. Other mediastinal structures: No signifi cant findings. Lower neck: CT neck reported separately. Upper abdomen: Punctate region of hypere nhancement in the hepatic dome, likely represents arterially enhancing hemangio ma. Body wall soft tissues: No significant f indings. Skeletal structures: No significant find ings. IMPRESSION No thoracic metastatic disease identifie d. I have personally reviewed the image(s) and the resident's interpretation and agree with the findings, Archana Avalos MD at 12/04/2020 4:24 PM Thank you for letting us participate in the care of this patient. If you are a health care provider and have any questi ons regarding this report, please contact the number below. For patients w ho have questions please contact the health rn transitional care that requested your imaging first. Fabienne J De Dios MD IMG CT ORDERABLES documented in this encounter Visit Diagnoses Diagnosis Papillary thyroid carcinoma Malignant neoplasm of thyroid gland documented in this encounter Administered Medications Inactive Administered Medications - up to 3 most recent administrations Medication Order MAR Action Action Date Dose Rate Site iohexoL (Omnipaque) (350 mg/mL) Given 12/04/2020 2:37 PM EDT 110 mLs injection solution 0-200 mL 0-200 mL, Intravenous, ONCE PRN, 1 dose, Starting on Kiki 12/04/20 at 1436, Until Kiki 12/04/20 at 1437, Per Protocol, Warning Vesicant/Irritant Medication , Radiology Contrast, Routine documented in this encounter Care Teams Fisher Trot Line Relationship Specialty Start Date End Date Viki Elaine PA PCP - General Internal Medicine 12/04/[address] [place] [address] [place] [address] documented as of this encounter
--- OUTSIDE RECORDS SUMMARY | 2021-12-04 13:56 | XMS_ITS | Encounter Summary ---
:1955 [place] [address] Care Team Providers Name Role Phone Viki Elaine Primary Care Provider Encounter Details Date Type Department Care Team Description 02/20/2021 Laboratory Appointment Lab [address] [facility] Thyroid cancer [facility] [place] [address] Social History Tobacco Use Types Packs/Day [...] Oncology [facility] HEMATOLOGY ONCOL [place], [place] [address] (Wo rk) 12/16/2021 Scheduled View Only Radiation Oncology 12/17/2021 Scheduled View Only Radiation Oncology 12/18/2021 Scheduled View Only Radiation Oncology 12/18/2021 Infusion Hematology and Oncology 12/21/2021 Scheduled View Only Radiation Oncology 12/22/2021 Scheduled View Only Radiation Oncology documented as of this encounter Procedures Procedure Name Priority Date/Time Associated Comments Diagnosis HC THYROGLOBULIN Routine 02/20/2021 10:14 Thyroid cancer Resul ts for this ANTIBODIES AM EST procedure are i n the results section. HC THYROID STIMULATING Routine 02/20/2021 10:14 Thyroid cancer Results for this HORMONE, SERUM AM EST procedure are in the results section. documented in this encounter Results (ABNORMAL) Thyroglobulin (02/20/2021 10:14 AM EST) Analysis Performed At Patho logist Time Signature Thyroglobulin Not Perf <=54.9 AKASH PERALTACOCK ng/mL [facility] Comment: Thyroglobulin cannot be accurately measu red by the [facility] Chemistry immunoassay method because this specimen contains an ti-thyroglobulin antibody. This order for thyroglobulin measurement by immunoa ssay has been cancelled, and a reflex order for thyroglobulin measurement by m ass spectrometry has been placed. Subsequent thyroglobulin measurements fo r this patient should also be performed by mass spectrometry. Any additional ord ers should be placed using the [facility] Request [id number] indicating requested lab is Thyroglobulin by LC-MS/MS, [facility] test [id number]. If Thyroglobulin Antibody testing is needed use [id number] Thyroglobulin Ab. Thyroglob Ab 48.0 (H) 0.0 - 40.0 IU/mL [facility] Specimen Anatomical Collection Method Collection Time Receive d Time (Source) Location / / Volume Laterality Blood 02/20/2021 10:14 02/20/2021 2:30 AM EST PM EST Resulting Agency Comment Spec In Lab Fabienne De Dios MD CHEMISTRY ORDERABLES Performing Organization Address City/[facility]/[place] [address] TSH (02/20/2021 10:14 AM EST) P athologist Signature TSH 0.47 0.27 - 4.20 [facility] mcIU/mL [facility] Comment: Reference Interval (mcIU/mL): Females: ??First Trimester: 0.23-3.88 ??Second Trimester: 0.22-3.90 ??Third Trimester: 0.44-4.66 Specimen Anatomical Collection Method Collection Time Receive d Time (Source) Location / / Volume Laterality Blood 02/20/2021 10:14 02/20/2021 AM EST 10:31 AM EST Resulting Agency Comment Spec In Lab Fabienne De Dios MD CHEMISTRY ORDERABLES Performing Organization Address City/State/[place]IP [facility] [place] [address] documented in this encounter Visit Diagnoses Diagnosis Thyroid cancer Malignant neoplasm of thyroid gland documented in this encounter Care Teams Plastics Fabricator Or Welder Relationship Specialty Start Date End Date Viki Elaine PA PCP - General Internal Medicine 12/04/[address] [place] [address] [place] [address] documented as of this encounter
--- OUTSIDE RECORDS SUMMARY | 2021-12-04 13:56 | XMS_ITS | Encounter Summary ---
:1955 Author Organization [facility] [place] [address] Care Team Providers Name Role Phone Viki Elaine Primary Care Provider [phone] Encounter Details Date Type Department Care Team Description 04/24/2021 Telephone Radiation Oncology a t [facility] Mike Miguel MD [facility] [address] RADIATION ONCOLOGY [phone] [place] [address] (Wo rk) Social History Tobacco Use Types [...] this encounter Miscellaneous Notes Telephone Encounter - Maged Jimenez MD - 04/26/2021 8:58 PM EDT I looked at the chart and it looks like the patient has never seen Dr Luis. It looks like the referral to endocrine is still open so she will probably be scheduled to see a fellow, me or Dr Felix sometime within the next few months Telephone Encounter - Mike Miguel MD - 04/24/2021 10:29 AM EDT I called Ms. Cardona regarding her post-treatment I-131 scan: EXAMINATION: NM I-131 WHOLE BODY SCAN POST [...] remnant thyroid tissue. No metastases are seen. At this point she has YVES. She will be seen in routine follow up. documented in this encounter Plan of Treatment [...] (TeleHealth) Hematology and Marija Baumann MD Oncology [facility] DR HEMATOLOGY ONCOL [place], [place] [address] (Wo rk) 12/16/2021 Scheduled View Only Radiation Oncology 12/17/2021 Scheduled View Only Radiation Oncology 12/18/2021 Scheduled View Only Radiation Oncology 12/18/2021 Infusion Hematology and Oncology 12/21/2021 Scheduled View Only Radiation Oncology 12/22/2021 Scheduled View Only Radiation Oncology documented as of this encounter Visit Diagnoses Not on filedocumented in this encounter Care Teams Exposure Machine Operator Relationship Specialty Start Date End Date Viki Elaine PA PCP - General Internal Medicine 12/04/[address] [place] [address] [place] [address] documented as of this encounter
--- OUTSIDE RECORDS SUMMARY | 2021-12-04 13:56 | XMS_ITS | Encounter Summary ---
:1955 Author Organization [facility] Address [address] [facility] [place] [address] Care Team Providers Name Role Phone Parviz Lamb MD Primary Care Provider Encounter Details Date Type Department Care Team Description 10/09/2020 Ancillary Procedure Radiology Library at Parviz Lamb MD [facility] [address] [place] [address] [place] [address] [phone] Social History Tobacco Use Types Packs/Day Years [...] Visit (TeleHealth) Hematology and BaumannMarija MD Oncology [facility] DR HEMATOLOGY ONCOL [place], [place] [address] (Wo rk) 12/16/2021 Scheduled View Only Radiation Oncology 12/17/2021 Scheduled View Only Radiation Oncology 12/18/2021 Scheduled View Only Radiation Oncology 12/18/2021 Infusion Hematology and Oncology 12/21/2021 Scheduled View Only Radiation Oncology 12/22/2021 Scheduled View Only Radiation Oncology documented as of this encounter Procedures Procedure Name Priority Date/Time Associated Comments Diagnosis FILM LIBRARY STORAGE Routine 10/09/2020 12:00 AM Results for this ONLY ULTRASOUND EDT procedure ar e in STUDY the results section. documented in this encounter Results Film Library- Storage Only Ultrasound Study (10/09/2020 12:00 AM EDT) Specimen (Source) Anatomical Location Collection Method / Collectio n Time Received Time / Laterality Volume Narrative RONY - 11/11/2020 1:36 PM EDT This exam is auto-finalizing. It's purpo se is for storage only. Parviz Lamb MD IMG FILM LIBRARY ORDERABLES Performing Organization Address City/State/ZIP Code Phon e Number [facility] [place], [place] documented in this encounter Visit Diagnoses Not on filedocumented in this encounter Care Teams Research Worker Encyclopedia Relationship Specialty Start Date End Date Parviz Lamb MD PCP - General 12/30/09 12/03/[address] [place] [address] [place] [address] documented as of this encounter
--- OUTSIDE RECORDS SUMMARY | 2021-12-04 13:56 | XMS_ITS | Encounter Summary ---
:1955 [place] [address] Care Team Providers Name Role Phone Viki Elaine Primary Care Provider [phone] Reason for Visit Auth/Cert Specialty Diagnoses [...] Expiration Date Visits Requ ested Visits Authorized [id number] 1 1 Encounter Details Date Type Department Care Team Description 01/07/2021 Anesthesia Event Main Operating Room Gudelia Penn MD [facility] [place] [address] [facility] [place] Nicholas Carter CRNA [facility] ANESTH[place]OLOG[place] [address] [place] [address] Anesthesia Record Procedure Summary Procedure Name Responsible Anesthesia Start Anesthesia Stop Anesthesiologist Time Time THYROIDECTOMY, FOR Gudelia Kang MD 01/07/21 0735 02/27 1259 MALIGNANCY, LIMITED NECK DISSECTION (WRVU 22.01) (Bilateral Neck) Events Date Time Event Comment 01/07/2021 0722 0735 AN Verify 0735 Start 0735 An Start Data 0742 An Induction 0744 An Intubation 0747 Anesthesia Ready 0827 Procedure Start 1249 Extubation/LMA Out 1254 an stop data 1259 Recovery or ICU Handoff Patient care was transferred to the destination unit staff after review of the patient's medica l history, current anesthetic/surgi kleber status and plan, according to the Provider Handoff Checklist. 1259 Stop Name Total fentaNYL 100 mcg IV Lidocaine 100 mg Propofol 90 mg PHENYLephrine 120 mcg ePHEDrine 15 mg Ondansetron 4 mg Dexamethasone 4 mg Succinylcholine 100 mg ceFAZolin 4 g Propofol INF 1,845.12 mg REMIfentanil INF 2.01 mg PHENYLephrine INF 2,290 mcg ketorolac (Toradol) (30 mg/mL) injection 15 mg Lactated Ringers 200 mL Sodium Chloride 0.9% 400 mL Agents Name O2 Air N2O Sevoflurane (et) Blood No blood administrations on file. Lines, Drains, and Airways Type Details Placement Removal PIV 01/07/21; 0729; basilic 01/07/21 0729 by 1 1024 by vein (medial side of Nicholas Carter, HEPATOLOGY PHYSICIAN Begle y, Linda A, arm), right; RN [id number]-zlnlnq catheter system; Anatomical Landmarks; 20 gauge; no longer indicated, removed per policy/procedure, catheter/device intact; 01/08/21; 1024 ETT Mask Ventilation: Easy 01/07/21 0744 by 01/07/21 1249 by (1); ETT Type: Cuffed; Nicholas Carter, Nicholas Joya, ETT Size: 6 mm; Mac HEPATOLOGY PHYSICIAN Blade: 3; Notes: Asleep, Pre-O2, Stylette; Attempts: 2; Laryngoscopy Grade: 1; ETT Placement Verified By: Auscultation; Secured at Teeth: 21 cm PIV 01/07/21; 0749; cephalic 01/07/21 0749 by 1025 by vein (lateral side of Nicholas Crater, HEPATOLOGY PHYSICIAN Begl ey, Linda A, arm), left; RN qgkw-ave-[id number] catheter system; Anatomical Landmarks; 18 gauge; no longer indicated, removed per policy/procedure, catheter/device intact; 01/08/21; 1025 Urethral Catheter 01/07/21; 0750; Surgery 01/07/21 0750 by Keith, 01/07/21 1257 by longer than 2 hours, LIZABETH Gallego, Emelina Orozco RN Physician order; indwelling double lumen catheter; latex; 14; inserted at this facility; 1; 5; 10; other (see comments) (General anesthesia); urethral catheter removed; 01/07/21; 1257 Incision 01/07/21; 0824; anterior; 01/07/21 0824 by Keith, 10/09/21 2222 by neck; 10/09/21; 222 LIZABETH Gallego Grace V, RN (unknown time and date of healed wound) Drain/Device Site 01/07/21; 1204; Left; 01/07/21 1204 by Keith, 222 by neck; collapsible closed LIZABETH Gallego G race V, RN device; Dr. De Dios; Sterile prep and drape; 10 Arabic Round Drain; 10/09/21; 2220 (unknown time and date of removal) documented in this encounter Social History Tobacco [...] place to sleep or slept in a fci (including now)? Sex Assigned at Date Recorded Not on file documented as of this encounter OR Notes Anesthesia Postprocedure Evaluation - Gudelia Kang MD - 01/07/2021 1:58 PM EST Department of Anesthesiology Post-procedure Note Patient: Lorin Cardona Procedure Summary Date: 01/07/21 Room / Location: [address] MAIN OR Anesthesia Start: 734 Anesthesia Stop: 1258 Procedures: THYROIDECTOMY, FOR MALIGNANCY, LIMITED NECK DISSECTION (WRVU 22.01) (Bilateral Neck) FACIAL NERVE MONITORING, SETUP LARYNGEAL (WRVU 1.57) (N/A Neck) @CERVICAL LYMPHADENECTOMY (MODIFIED RADICAL NECK DISSECTION) (WRVU 23.95) (Left Neck) Diagnosis: (PAPILLARY THYROID CANCER) Surgeons: Fabienne De Dios MD Responsible Provider: Gudelia Kang MD Anesthesia Type: general ASA Status: 2 All Anesthesia Providers: Anesthesiologist: Gudelia Kang MD HEPATOLOGY PHYSICIAN: Nicholas Carter CRNA Vitals Value Taken Time BP 122/64 01/07/21 1345 Temp 37.1 ??C (98.8 ??F) 01/07/21 1300 Pulse 84 01/07/21 1356 Resp 15 01/07/21 1356 SpO2 92 % 01/07/21 1356 Pain Level Vitals shown include unvalidated device data. Patient Location: PACU/[facility] Level of Consciousness: Awake and Alert Pain Management: Satisfactory Analgesia PONV: None Cardiovascular Status: At Baseline and Hemodynamically Stable Respiratory Status: At Baseline and Room Air Postoperative Fluid Status: Intravascular EUvolemia Possible Anesthetic Complications: NONE apparent at time of evaluation Final Primary Anesthesia Type: General (The anesthetic type performed was the same as planned.) Comments: Awake and conversant, denies nausea or migraine, c/o mild sore throat GUDELIA KANG MD Anesthesia Preprocedure Evaluation - Gudelia Kang MD - 01/07/2021 7:20 AM EST Pre-Anesthesia Evaluation for: Lorin Cardona a 66 y.o. female. Procedure(s): THYROIDECTOMY, FOR MALIGNANCY, LIMITED NECK DISSECTION (WRVU 22.01) FACIAL NERVE MONITORING, SETUP LARYNGEAL (WRVU 1.57) @CERVICAL LYMPHADENECTOMY (MODIFIED RADICAL NECK DISSECTION) (WRVU 23.95) Patient Active Problem List Diagnosis ??? Thyroid cancer Past Medical History: Diagnosis Date ??? GERD (gastroesophageal reflux disease) ??? Kidney stones ??? Osteopenia History reviewed. No pertinent surgical history. Social History Tobacco Use ??? Smoking status: Never Smoker ??? Smokeless tobacco: Never Used Substance Use Topics ??? Alcohol use: Not Currently Comment: rarely Social History Substance and Sexual Activity Drug Use Never No Known Allergies Medications: MAR and/or home medications have been reviewed. Physical Exam: Preprocedure Vitals Current as of 01/07/21 0720 BP: 146/108 Pulse: 66 Resp: 18 SpO2: 100 Temp: 36.7 ??C (98.1 ??F) Height: 160 cm (5' 3) (01/07/21) Weight: 74.4 kg (164 lb) (01/07/21) BMI: 29.05 IBW: 52.4 kg (115 lb 7.7 oz) Last edited 01/07/21 0623 by DL Airway Assessment: Mallampati: II TM distance: >3 FB Neck ROM: full Cardiovascular Assessment: Rhythm: regular Rate: normal Pulmonary Assessment: unlabored breathing Dental Assessment: - normal exam Misc Assessment: Last Filed Perioperative Cognitive Screening Value Time User CFS Frailty Score: 2 12/04/2020 9:33 AM Alejandra Reyes LNA MiniCOG Total Score: 5 12/04/2020 9:33 AM Alejandra Reyes LNA Anesthesia Plan: ASA 2 general, with a(n) intravenous induction Otherwise healthy 66 yo nonsmoker presents with known thyroid ca for thyroidectomy, neck dissection.Discussed risks/benefits ILYA/CLAIRE ETT Informed Consent: Anesthetic plan and risks discussed with patient. Use of blood products discussed with patient who. Plan discussed with HEPATOLOGY PHYSICIAN. Anesthesia Screening documented in this encounter Plan [...] (TeleHealth) Hematology and Marija Baumann MD Oncology [facility] HEMATOLOGY [place], [place] [address] (Wo rk) 12/16/2021 Scheduled View [...] Site ceFAZolin (Ancef) 1 g in dextrose Given 01/07/2021 11:53 AM EST 2 g 5% 50 mL infusion Intravenous, PRN, Starting on Tue01/07/21 at 0800, Until Tue01/07/21 at 1259, Administer over 30 Minutes, Anesthesia Intra-op Given 01/07/2021 8:00 AM EST 2 g dexamethasone (Decadron) injection Given 01/07/2021 8:00 AM EST 4 mg Intravenous, PRN, Starting on Tue01/07/21 at 0800, Until Tue01/07/21 at 1259, Anesthesia Intra-op, Routine ePHEDrine sulfate (5 mg/mL) multi-dose Given 01/07/2021 8:13 AM EST 5 mg injection Intravenous, PRN, Starting on Tue01/07/21 at 0802, Until Tue01/07/21 at 1259, Anesthesia Intra-op, Routine Given 01/07/2021 8:02 AM EST 5 mg Given 01/07/2021 7:58 AM EST 5 mg fentaNYL (pf) (50 mcg/mL) multi-dose Given 01/07/2021 12:[address] 25 mcg injection Intravenous, PRN, Starting on Tue01/07/21 at 1225, Until Tue01/07/21 at 1259, Anesthesia Intra-op, Routine Given 01/07/2021 12:34 PM EST 25 mcg Given 01/07/2021 12:25 PM EST 50 mcg ketorolac (Toradol) (30 mg/mL) injection Given 01/07/2021 12:05 PM EST 15 mg Intravenous, PRN, Starting on Tue01/07/21 at 1205, Until Tue01/07/21 at 1259, Anesthesia Intra-op, Routine lactated ringers infusion New Bag 01/07/2021 7:30 AM EST Intravenous, CONTINUOUS PRN, Starting on Tue01/07/21 at 0730, Until Tue01/07/21 at 1259, Anesthesia Intra-op lidocaine (pf) (Xylocaine) (20 mg/mL) 2% Given 01/07/2021 7:43 A M EST 100 mg injection syringe Intravenous, PRN, Starting on Tue01/07/21 at 0743, Until Tue01/07/21 at 1259, Anesthesia Intra-op, Routine ondansetron (pf) (Zofran) (2 mg/mL) inje ction Given 01/07/2021 12:05 PM EST 4 mg Intravenous, PRN, Starting on Tue01/07/21 at 1205, Until Tue01/07/21 at 1259, Anesthesia Intra-op, Routine PHENYLephrine Rate/Dose Change 01/07/2021 8:58 10 mcg/min 7.5 mL/hr (Lisandro-Synephrine) (80 mcg/mL) AM EST in sodium chloride 0.9% 250 mL infusion Intravenous, CONTINUOUS PRN, Starting on Tue01/07/21 at 0836, Until Tue01/07/21 at 1259, Anesthesia Intra-op, Routine New Bag 01/07/2021 8:36 AM EST 20 mcg/min 15 mL/hr PHENYLephrine in NS (PF) (LISANDRO-SYNEPHRINE) 0.8 Given 8:13 AM EST 80 mcg mg/10 mL (80 mcg/mL) multi-dose injection Syrg Intravenous, PRN, Starting on Tue01/07/21 at 0807, Until Tue01/07/21 at 1259, Anesthesia Intra-op, Routine Given 01/07/2021 8:07 AM EST 40 mcg propofoL (Diprivan) (10 Rate/Dose 01/07/2021 11:30 50 mcg/kg/min 22. 32 mg/mL) infusion Change AM EST mL/hr Intravenous, CONTINUOUS PRN, Starting on Tue01/07/21 at 0743, Until Tue01/07/21 at 1259, Anesthesia Intra-op, Routine New Bag 01/07/2021 7:43 AM EST 100 mcg/kg/min 44.64 mL/hr propofoL (Diprivan) 10 mg/mL bolus injection Given 7:43 AM EST 90 mg (Anesthesia) Intravenous, PRN, Starting on Tue01/07/21 at 0743, Until Tue01/07/21 at 1259, Anesthesia Intra-op remifentaniL (Ultiva) (0.02 Rate/Dose 01/07/2021 0.05 11.16 mg/mL) infusion (Anesthesia) Change 11:56 AM EST mcg/kg/min mL/hr Intravenous, CONTINUOUS PRN, Starting on Tue01/07/21 at 0743, Until Tue01/07/21 at 1259, Anesthesia Intra-op Rate/Dose Change 01/07/2021 10:43 AM EST 0.1 mcg/kg/min 22.32 mL/hr Rate/Dose Change 01/07/2021 10:25 AM EST 0.08 mcg/kg/min 17.856 mL/ hr sodium chloride 0.9% infusion New Bag 01/07/2021 7:48 AM EST Intravenous, CONTINUOUS PRN, Starting on Tue01/07/21 at 0748, Until Tue01/07/21 at 1259, Anesthesia Intra-op succinylcholine (Anectine;Quelicin) (20 Given 01/07/2021 7:43 AM EST 100 mg mg/mL) injection Intravenous, PRN, Starting on Tue01/07/21 at 0743, Until Tue01/07/21 at 1259, Anesthesia Intra-op, Routine documented in this encounter Care Teams Laboratory Associate Relationship Specialty Start Date End Date Viki Elaine PA PCP - General Internal Medicine 12/04/[address] [place] [address] [place] [address] documented as of this encounter
--- OUTSIDE RECORDS SUMMARY | 2021-12-04 13:56 | XMS_ITS | Encounter Summary ---
:1955 Author Organization [facility] [place] [address] Care Team Providers Name Role Phone Viki Elaine Primary Care Provider [phone] Reason for Referral Diagnostic Test (Routine) - Closed Specialty Diagnoses / Procedures Referred By Contact Refer red To Contact Radiology Diagnoses Papillary thyroid carcinoma Fabienne De Dios MD [facility] Rad Ct Scan Procedures CT Neck Soft Tissue w Contrast (Generic) CT Neck Soft Tissue wwo Contrast [facility] [place] [id number] [place] [address] Referral ID Status Reason Start Date Expiration Date Visits V isits Requested Authorized [id number] Closed Specialty 12/04/2020 06/04/2022 1 1 Service Requested Diagnostic Test (Routine) - Closed Specialty Diagnoses / Procedures Referred By Contact Refer red To Contact Radiology Diagnoses Papillary thyroid carcinoma Fabienne De Dios MD [facility] Rad Ct Scan Procedures CT Chest w Contrast [facility] [place] [address] [place] [address] Referral ID Status Reason Start Date Expiration Date Visits V isits Requested Authorized [id number] Closed Specialty 12/04/2020 06/04/2022 1 1 Service Requested Reason for Visit Reason Comments Establish Care Consultation (Urgent) - Closed Specialty Diagnoses / Procedures Referred By Contact Refer red To Contact General Surgery Diagnoses Thyroid cancer Viki Elaine Sorensen, Meredith J, PA MD [address] [place] [address] [place] [address] [place] [address] Phone: Fax: Referral ID Status Reason Start Date Expiration Date Visits Requ ested Visits Authorized [id number] Closed 11/11/2020 11/11/2021 1 1 Encounter Details Date Type Department Care Team Description 12/04/2020 Office Visit General Surgery at [place] De Dios MD [facility] [place] [address] Papillary thyroid carcinoma; [facility] Yulia Kincaid APRN [facility] [place] [address] [place] [address] Social History Tobacco Use Types Packs/Day Years Used Date Never Smoker Financial Resource Strain Answer Date Recorded How hard is it for you to pay for the very basics like Not h kkee at all 10/21/2021 food, housing, medical care, [...] Sign Reading Time Taken Comments Blood Pressure - - Pulse - - Temperature 36.3 ??C (97.3 ??F) 12/04/2020 9:26 AM EDT Respiratory Rate - - Oxygen Saturation - - Inhaled Oxygen Concentration - - Weight 75.3 kg (165 lb 14.4 oz) 12/04/2020 9:26 AM EDT Height 160.5 cm (5' 3.19) 12/04/2020 9:26 AM EDT Body Mass Index 29.21 12/04/2020 9:26 AM EDT documented in this encounter Progress Notes Fabienne De Dios MD - 12/04/2020 9:30 AM EDT Endocrine Surgery Initial Consultation HPI: Ms. Lorin Cardona is a 65 y.o. year old female referred by Dr. Elaine who presents for evaluation of multiple thyroid nodules. This was initially noted on a thyroid ultrasound done for a history of multiple siblings with thyroid cancer. (She requested screening ultrasound because of her strongfamily history.) She denies compressive symptoms including globus sensation. She denies symptoms of hyperthyroidism or hypothyroidism, and recent thyroid function tests have been normal. There is not personal history of radiation exposure, and the patient has not had prior anterior neck surgery. As above, there is very significant family history of thyroid cancer in two brothers and a sister. 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 Imaging studies to date include thyroid ultrasound performed most recently by radiology at [facility] which demonstrated multiple thyroid nodules, including a 1.2cm TR 5 lesion in the righthemithyroid. There is not a reported substernal component. Fine needle aspiration biopsy has been performed by radiology and cytology was suspicious for malignancy ([place] 5). She is now referred to me for consideration of surgical management of her thyroid disease. Past Medical History: Diagnosis Date ??? GERD (gastroesophageal reflux disease) ??? Kidney stones ??? Osteopenia No past surgical history on file. Current Outpatient Medications on File Prior to Visit Medication Sig Dispense Refill ??? calcium carbonate (CALCIUM 300 ORAL) Take 1,200 mg by mouth daily. ??? docosahexaenoic acid/epa (FISH OIL ORAL) Take by mouth daily. ??? multivitamin Capsule Take 1 capsule by mouth every other day. ??? omeprazole (PriLOSEC) 20 mg Capsule, Delayed Release(E.C.) Take 20 mg by mouth daily. ??? ascorbic acid, Vitamin C, (Vitamin C) 500 mg Tablet Take 500 mg by mouth daily. ??? fluticasone propionate (Flonase Allergy Relief) 50 mcg/actuation [place], Suspension 1 spray by Each Nare route as needed for Rhinitis. ??? Ibuprofen 200 mg Capsule Take by mouth as needed. ??? acetaminophen (Tylenol) 500 mg Tablet Take 1,000 mg by mouth as needed for Pain. No current facility-administered medications on file prior to visit. No Known Allergies Family History: Three siblings with thyroid cancer. No pituitary, pancreas or adrenal tumors. No parathyroid disease. 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 She lives with her . She does not smoke. Occasional etoh. She does not do any professional public speaking or singing. Review of Systems: 10 of 14 systems reviewed and all negative except as per HPI Patient Vitals for the past 24 hrs: Temp 12/04/20 0926 36.3 ??C (97.3 ??F) Body mass index is 29.21 kg/m??. Physical Exam: General: well-appearing, NAD Neuro: Alert and oriented x 3. Cranial nerves II-XII grossly intact. Eyes: no lid lag or proptosis ENT: Moist mucus membranes. Trachea midline Thyroid: hard nodule in right thyroid and a second probable nodule/swelling on the left side low in the central neck. Mobile with swallowing. Lymph: No palpable cervical lymphadenopathy CV: RRR Respiratory: Normal respiratory effort. Lungs clear bilaterally. Extremities well-perfused without edema Skin: warm and dry. No rashes Psych: appropriate affect Labs: TSH 2.72 Ca 10.4 Imaging: Thyroid, Parathyroid and Cervical Ultrasound I performed a thyroid, parathyroid and cervical ultrasound at the time of the clinic visit today using the 12 mHz linear ultrasound transducer. The thyroid, parathyroid and central and bilateral lateral neck lymph node basins were evaluated. Thyroid Isthmus: Thickness: 0.27 cm Nodules: none Right lobe: Lobe: 5.44 x 1.73 x 1.56 cm Nodules: There is a hypoechoic nodule measuring 1.52 x 0.89 x1.27 cm. It has ill-defined borders. There are microcalcifications. There is no/low vascularity. It is sonographically highly suspicious for thyroid cancer. There is a second nodule toward the isthmus measuring 2.02 x 0.70 x 1.58cm that is isoechoic with well-circumscribed borders, no calcifications, and no/low vascularity Left lobe: Lobe: 4.22 x 1.66 x 1.40 cm Nodules: Generally heterogeneous without discrete nodules Cervical lymph nodes Central neck: there is a highly suspicious peritracheal node just anterior to the esophagus and inferior to the lower pole of the thyroid that measures 0.58 x 0.51 x 0.40cm. It has microcalcificationsand chaotic vascularity Right lateral neck: Normal ultrasonographic appearing lymph nodes. Left lateral neck: There are at least 3 suspicious nodes in left level 4, the largest just posterolateral to the jugular measuring 1.38 x 0.54 x 0.84cm and containing microcalcifications without a visible hilum. Posterior to the carotid, there is another node that is suspicious with similar characteristics to those described above that cannot be measured accurately due to the positioning of the ultrasound probe against the clavicle. Ultrasound-Guided Lymph Node Fine Needle Aspiration Biopsy I performed an ultrasound-guided fine needle aspiration biopsy today in clinic as a separately identifiable procedure. I first performed a diagnostic thyroid and cervical ultrasound with the findings as noted above. Verbal informed consent was then obtained after discussing the risks of fine needle biopsy, including bleeding, infection, and damage to surrounding structures. Then, using the 12mHz ultrasound transducer for guidance, I prepped the area with alcohol and infiltrated the dermal layer with1% lidocaine with epinephrine. Then using 4 separate passes with a 1.5 inch, 20G needle with gentle aspiration, I sampled the left level 4 node. Three needle passes were washed out in Cytolyte to be sen t to cytology and the 4th pass was washed out in 1cc of sterile saline to be sent for thyroglobulin washout. The patient tolerated the procedure well without immediate complications. I will notify her of the final pathology results when they are available. A/P: Ms. Lorin Cardona is a 65 y.o. year old female with multiple thyroid nodules and FNA of the TR5 nodule in the right lobe demonstrating suspicious for malignancy ([place] 5) cytology. She has a very suspicious sonographically node in the left central neck as well as lymphadenopathy in the left lateral neck. This was biopsied today. I arranged for her to have a CT scan of her neck and chest today because of the very low level 4 disease and possibility of extension into the mediastinum. This isstill pending. She will need at minimum a total thyroidectomy with central neck dissection, but I suspect will alsoneed a left lateral neck dissection. I will call her as soon as I have the results of the FNA and the CT scans to discuss further. In addition, since I needed to check a creatinine in preparation for her CT, I ordered a BMP to check her calcium level given her history of osteopenia and kidney stones. This did return mildly elevated at 10.4. When I contact her, I will also suggest a repeat calcium level with PTH. By definition, she will have a bilateral parathyroid exploration at the time of thyroid surgery, but I would only intentionally remove parathyroid glands if we were to diagnose concurrent hyperparathyroidism pre-operatively. CESQIP Data Thyroid Body mass index is 29.21 kg/m??. Prior neck irradiation:No Prior anterior neck surgery: No Pre-operative laryngoscopy: No Anti-coagulation meds (warfarin, heparin, oral thrombin or factor Xa inhibitors): No. Will the patient stop this medication for surgery? N/A Anti-platelet meds (aspirin, clopidogrel): No, Will the patient stop this medication for surgery? N/A Substernal component: No Symptoms of compression: No FNA: yes FNA Classification: [place] V documented in this encounter Plan of Treatment [...] [facility] DR HEMATOLOGY [place], [place] [address] (Wo rk) 12/16/2021 Scheduled View Only Radiation Oncology 12/17/2021 Scheduled View Only Radiation Oncology 12/18/2021 Scheduled View Only Radiation Oncology 12/18/2021 Infusion Hematology and Oncology 12/21/2021 Scheduled View Only Radiation Oncology 12/22/2021 Scheduled View Only Radiation Oncology documented as of this encounter Procedures Procedure Name Priority Date/Time Associated Comments Diagnosis CYTOPATHOLOGY Routine 12/04/2020 12:41 Papillary thyroid Resul ts for this NON-GYNECOLOGICAL PM EDT carcinoma procedure are in the results section. [facility] THYROGLOBULIN, Routine 12/04/2020 12:40 Papillary thyro id Results for this FNA PM EDT carcinoma procedure are i n the results section. NON-HOME HEALTH CARE RESPIRATORY THERAPIST FINAL REPORT Routine 12/04/2020 12:40 Res ults for this PM EDT procedure are i n the results section. BASIC METABOLIC PANEL Routine 12/04/2020 12:01 Primary thyroid Results for this (NON-FASTING) PM EDT cancer procedure are in the results section. documented [...] have questions please contact the health healthcare administrator that requested your imaging first. ? Electronically signed by: Armand Duarte MD, [facility] ([phone]), at 12/04/2020 4:42 PM Narrative 12/04/2020 4:42 PM EDT EXAMINATION: CT [...] have questions please contact the health healthcare administrator that requested your imaging first. Electronically signed by: Armand Duarte MD, [facility] ([phone]), at 12/04/2020 4:42 PM Fabienne De Dios MD IMG CT ORDERABLES [...] have questions please contact the health healthcare administrator that requested your imaging first. ? Electronically signed by: Archana Avalos MD, [facility] ([phone]), at 12/04/2020 4:24 PM Narrative 12/04/2020 4:24 PM EDT EXAMINATION: CT [...] have questions please contact the health healthcare administrator that requested your imaging first. Electronically signed by: Archana Avalos MD, [facility] ([phone]), at 12/04/2020 4:24 PM Fabienne De Dios MD IMG CT ORDERABLES Cytopathology Non-Gynecological (12/04/2020 12:41 PM EDT) Specimen Anatomical Collection Method Collection Time Receive d Time (Source) Location / / Volume Laterality AP Specimen 12/04/2020 12:41 12/04/2020 PM EDT 12:[address] [facility] - 12/04/2020 12:41 PM EDT Specimen requisition ordered. ??Separate Pathology report to follow Fabienne De Dios MD PATHOLOGY/CYTOLOGY ORDERABLE S Performing Organization Address City/State/[place] [address] Non-Supervisor Real Estate Office Final Report (12/04/2020 12:40 PM EDT) Component Value Ref Test Analysis Performed At [facility] gist Range Method Time Signature Non-Supervisor Real Estate Office [id number] ? Location: 4L [facility] Final [facility] The signing pathologist has (i) examined the relevant preparation(s) for the [facility] specimen(s) and (ii) rendered or confirmed the diagnosis(es) . HOSPITAL LABORATORY . ? No n-Supervisor Real Estate Office Final DIAGNOSIS Positive for Malignancy Electronically signed by: ?Jason Briceno MD Verified: ??12/08/2020 11:41 ??Cytopathologist Performed at: ??-[facility] Dept. of Pathology, [place], [place] DISCUSSION Lymph node: left level 4 (US-guided FNA) - A few clusters of atypical e pithelioid cells with moderately prominent nucleoli are present; nuclear contour ir regularities and nuclear pseudoinclusions are noted. Macrophages are also evident. In view of the history, the material is compatible with metastatic papillary thyroid carcinoma. --- Immunohistochemistry Studies --- Interpretation: ? Immunohistochemical a ssays were performed (on paraffin-embedded cell block sections fixed in 10% neutr al buffered formalin for 6-72 hours) using the polymer technique with appropriate controls. The sections are studied for TTF-1 and PAX8. The lesional cells are immunoreactive for TTF-1 and PAX8. These immunohistochemical st udies provide ancillary information and are used only in conjunction with standard diagnostic procedures. CLINICAL INFORMATION Specimen Source : Lymph node: left level 4 (US-guided FNA) Pertinent Clinical Data and Significant Therapy: PTC with suspicious left lateral lymphadenopathy Clinical Impression : ? thyroid cancer metastasis Pertinent Radiologic Findings ??: (not provided) Gross Description: Received ??in CytoLyt approx imately 15 mL total volume of ?? cloudy, red fluid, with light flecks. Total Preparation: Liquid-Based Prep 1; Cell Block 1. Specimen (Source) Anatomical Collection Method Collection Time Re ceived Time Location / / Volume Laterality 12/04/2020 12:40 PM EDT Fabienne De Dios MD PATHOLOGY/CYTOLOGY ORDERABLE S Performing Organization Address City/State/[place] [address] Fine Needle Aspirate Thyroglobulin (12/04/2020 12:40 PM EDT) [facility] gist Method Time Signature FNA Thyroglobulin 31.2 ng/mL [facility] Comment: Negative: < or = 1.0 ng/mL Indeterminate: 1.1 - 10.0 ng/mL Consistent with thyroid tissue or metast atic thyroid cancer: >10.0 ng/mL This test was performed using the [employer] Chemiluminescent method. Values obtained from different assay methods cannot be used interchangeably. Thyroglobulin levels, r egardless of value, should not be interpreted as a bsolute evidence of the presence or absence of d isease. Test performed by: [facility] [address] [place] [address] FNA Site Left level 4 node [facility] Specimen Anatomical Collection Method Collection Time Receive d Time (Source) Location / / Volume Laterality Fine Needle 12/04/2020 12:40 12/04/2020 3:59 Aspirate PM EDT PM EDT Fabienne De Dios MD BODY FLUIDS AND STOOLS ORDER CORTEZ Performing Organization Address City/State/[place] [address] Basic Metabolic Panel (non-fasting) (12/04/2020 12:01 PM EDT) P athologist Signature Glucose Lvl 111 65 - 199 [facility] mg/dL [facility] Comment: Diabetes: >=200 mg/dL plus symp toms BUN 14 8 - 18 mg/dL [facility] Creatinine 0.74 0.70 - 1.20 mg/dL [facility] Sodium 137 135 - 145 mmol/L [facility] Potassium 4.0 3.5 - 5.0 mmol/L [facility] Comment: Please note: ??Patients with WBC >100,00 0 may have falsely elevated Potassium levels. ??For accurate Potassium quantif ication in these patients send serum separator tube (gold top) for subsequent determinations. ??Contact the Clinical Chemistry Laboratory if there are any qu estions. Chloride 101 98 - 107 mmol/L [facility] CO2 28 22 - 31 mmol/L [facility] Anion Gap 8 5 - 15 mmol/L [facility] Calcium 10.4 8.5 - 10.5 mg/dL [facility] Estimated GFR 84 >=60 mL/min/1.73 m?? [facility] Comment: This patient? s estimated glomerular filtration rate (eGFR) is between 84 mL/min/1.73 m2 (patients with less muscl e mass) and 97 mL/min/1.73 m2 (patients with more muscle mass) as determined by the CKD-EPI equation. Assessment of eGFR is not appropriate when creatinine concentrations are rapidly changing. For clinical decisions where creatinine clearance will affect therapy, a 24-hour urine creatinine clearance may b e advised. Assignment of CKD stage 1 - 5 for patien ts with an eGFR near the transition point between stages may be based on cli nical assessment of muscle mass and symptoms in addition to eGFR. Specimen Anatomical Collection Method Collection Time Receive d Time (Source) Location / / Volume Laterality Blood 12/04/2020 12:01 12/04/2020 PM EDT 12:54 PM EDT Resulting Agency Comment Spec In Lab Fabienne De Dios MD CHEMISTRY ORDERABLES Performing Organization Address City/State/[place] [address] documented in this encounter Visit Diagnoses Diagnosis Papillary thyroid carcinoma Malignant neoplasm of thyroid gland Primary thyroid cancer Malignant neoplasm of thyroid gland Papillary thyroid carcinoma Malignant neoplasm of thyroid gland documented in this encounter Care Teams Director Internal Control Relationship Specialty Start Date End Date Viki Elaine PA PCP - General Internal Medicine 12/04/[address] [place] [address] [place] [address] documented as of this encounter
--- OUTSIDE RECORDS SUMMARY | 2021-12-04 13:56 | XMS_ITS | Encounter Summary ---
:1955 Author Organization [facility] [place] [address] Care Team Providers Name Role Phone Viki Elaine Primary Care Provider [phone] Encounter Details Date Type Department Care Team Description 03/10/2021 Laboratory Appointment Lab 3L [place] Metastasis from [facility] [place] [address] Social History Tobacco Use Types Packs/Day Years [...] (TeleHealth) Hematology and Marija Baumann MD Oncology [facility] HEMATOLOGY [place]COL [place], [place] [address] (Wo rk) 12/16/2021 Scheduled View Only Radiation Oncology 12/17/2021 Scheduled View Only Radiation Oncology 12/18/2021 Scheduled View Only Radiation Oncology 12/18/2021 Infusion Hematology and Oncology 12/21/2021 Scheduled View Only Radiation Oncology 12/22/2021 Scheduled View Only Radiation Oncology documented as of this encounter Procedures Procedure Name Priority Date/Time Associated Comments Diagnosis THYROGLOBULIN BY Routine 03/10/2021 11:05 Results for this LC-MS/MS AM EST procedure are i n the results section. HC VENIPUNCTURE Routine 03/10/2021 11:05 Metastasis from Resul ts for this AM EST thyroid cancer procedure are in the results section. documented in this encounter Results Thyroglobulin by LC-MS/MS (03/10/2021 11:05 AM EST) [facility] Method Time Signature Thyroglobulin by See Orin BUSTOS LC-MS/MS Report [facility] Comment: Test performed by JANUSZ remy, [address] [place] [address] Specimen Anatomical Collection Method Collection Time Receive d Time (Source) Location / / Volume Laterality Blood 03/10/2021 11:05 03/16/2021 AM EST 11:18 AM EST Narrative This result has an attachment that is no t available. Resulting Agency Comment Spec In Lab Fabienne De Dios MD CHEMISTRY ORDERABLES Performing Organization Address City/State/ZIP Code Phon e Number [place] [phone] (ABNORMAL) Thyroglobulin (03/10/2021 11:05 AM EST) Analysis Performed At [facility] Time Signature Thyroglobulin Not Perf <=54.9 [facility] ng/mL [facility] Comment: Thyroglobulin cannot be accurately measu red by the [facility] Chemistry immunoassay method because this specimen contains an ti-thyroglobulin antibody. This order for thyroglobulin measurement by immunoa ssay has been cancelled, and a reflex order for thyroglobulin measurement by m ass spectrometry has been placed. Subsequent thyroglobulin measurements fo r this patient should also be performed by mass spectrometry. Any additional ord ers should be placed using the [facility] Lab Request [id number] indicating requested lab is Thyroglobulin by LC-MS/MS, [facility] test [id number]. If Thyroglobulin Antibody testing is needed use [id number] Thyroglobulin Ab. Thyroglob Ab 53.6 (H) 0.0 - 40.0 IU/mL [facility] Specimen Anatomical Collection Method Collection Time Receive d Time (Source) Location / / Volume Laterality Blood 03/10/2021 11:05 03/10/2021 1:13 AM EST PM EST Resulting Agency Comment Spec In Lab Fabienne De Dios MD CHEMISTRY ORDERABLES Performing Organization Address City/State/ZIP Code Phon e Number [place] [phone] documented in this encounter Visit Diagnoses Diagnosis Metastasis from thyroid cancer documented in this encounter Care Teams Stationary Steam Engineer Relationship Specialty Start Date End Date Viki Elaine PA PCP - General Internal Medicine 12/04/[address] [place] [address] [place] [address] documented as of this encounter
--- OUTSIDE RECORDS SUMMARY | 2021-12-04 13:56 | XMS_ITS | Encounter Summary ---
:1955 Author Organization [facility] [place] [address] Care Team Providers Name Role Phone Viki Elaine Primary Care Provider [phone] Encounter Details Date Type Department Care Team Description 04/02/2021 Telephone [place]iation [place] [facility] [place]al, [place] [address] Social History Tobacco Use Types Packs/Day [...] encounter Miscellaneous Notes Telephone Encounter - Jessica Oneal, RN - 04/02/2021 2:02 PM EST Message received: Lorin giang would like nursing to call her about her prep for I-131 outpatient ablation on 04/16/21. Please give her a call back today or tomorrow at [phone] T/C To Patient: She would like to know when to start the low-iodine diet. Plan: advised her to start today as she needs to start 2 weeks prior to her appointments Patient in agreement. She will start her low-iodine diet today documented in this encounter Plan of Treatment [...] Oncology [facility] HEMATOLOGY ONCOL [place], [place] [address] (Wo rk) 12/16/2021 Scheduled View Only Radiation Oncology 12/17/2021 Scheduled View Only Radiation Oncology 12/18/2021 Scheduled View Only Radiation Oncology 12/18/2021 Infusion Hematology and Oncology 12/21/2021 Scheduled View Only Radiation Oncology 12/22/2021 Scheduled View Only Radiation Oncology documented as of this encounter Visit Diagnoses Not on filedocumented in this encounter Care Teams Certified Technician Specialist Relationship Specialty Start Date End Date Viki Elaine PA PCP - General Internal Medicine 12/04/[address] [place] [address] [place] [address] documented as of this encounter
--- OUTSIDE RECORDS SUMMARY | 2021-12-04 13:56 | XMS_ITS | Encounter Summary ---
:1955 Author Organization [facility] [place] [address] Care Team Providers Name Role Phone Viki Elaine Primary Care Provider [phone] Reason for Visit Consultation (Routine) - Closed Specialty Diagnoses / Procedures Referred By Contact Refer red To Contact Radiation Oncology Diagnoses Metastasis from thyroid cancer Fabienne De Dios Schaner, Philip E, MD MD [facility] RADIATION [place] [address] Referral ID Status Reason Start Date Expiration Date Visits V isits Requested Authorized [id number] Closed Consult, 01/23/2021 01/23/2022 1 1 Test & Treat Encounter Details Date Type Department Care Team Description 03/05/2021 Office Visit Radiation Oncology at Alvin Miguel MD Thyroid cancer [facility] Shady [place]var[place] [address] [place] [address] [phone] (Wo rk) Social History Tobacco Use Types [...] Sign Reading Time Taken Comments Blood Pressure 100/85 03/05/2021 12:34 PM EST Pulse 72 03/05/2021 12:34 PM EST Temperature 36.2 ??C (97.1 ??F) 03/05/2021 12:34 PM EST Respiratory Rate 15 03/05/2021 12:34 PM EST Oxygen Saturation 100% 03/05/2021 12:34 PM EST Inhaled Oxygen Concentration - - Weight 75.5 kg (166 lb 8 oz) 03/05/2021 12:34 PM EST Height - - Body Mass Index 29.49 01/07/2021 6:23 AM EST documented in this encounter Patient Instructions Patient InstructionsOJessica Howard RN - 03/05/2021 1:00 PM EST GENERAL INFORMATION FOR I-131 OUTPATIENT As your doctor will have explained to you, you will be receiving a therapeutic dose of radioactive iodine (WELLER) as treatment for your medical condition. Radioactive iodine decreases the function of thyroid cells and inhibits their ability to grow. It isgiven to you in pill form and goes directly to the thyroid gland where it is absorbed by the thyroidtissue. Most of the WELLER will be received by your thyroid gland. Any WELLER not collected by the thyroid gland will be eliminated during the first two days through urine, feces, saliva, and sweat. You will be given a therapeutic dose of radioactive iodine for treatment of your medical condition. You have been selected to receive this treatment and remain at home because of your unique circumstances and ability to protect the public and family members from potential exposure. Please adhere to these guidelines to protect yourself, the public and our ability to offer future patients this treatment option. You will need to follow steps that will be given to you to help ensure that the excreted radiation from your body does not contaminate the environment or cause harm to other people. Radioactive iodine may be given: o after surgery, to kill any cancer cells that may have been left behind o to treat thyroid cancer that has spread o to treat thyroid cancer that has come back after it was first treated Some side affects you may have include: o Metallic taste in your mouth o Fatigue o Dry mouth o Sore throat or neck pain o Upset stomach or vomiting o Salivary glands may become swollen and hurt o Dry eyes o Some men may have problems having children o Some women may have changes in their periods LOW-IODINE DIET Start 2 weeks prior In preparation for your WELLER ablation, you are asked to go on a low-iodine diet two weeks prior to WELLER. The point of the low-iodine diet is to deplete the body of its natural iodine, which will make theRAI treatment more effective. The premise is that when the radioactive iodine is given, any remaining thyroid cancer or thyroid tissue will ???suck?? up the iodine because it has been depleted. You will be given a copy of the low-iodine diet instructions as found on the thyca.org website, where you can find the Low Iodine Cookbook. We give the guideline summary so you can see where to access it online. Please let us know if you do not have access to the internet and we can provide you with the whole cookbook. Please be aware that there are variations in low-iodine diet instructions and if you are consulting more than one source you may find minor differences. You may call us with any questions or concerns about differences in instructions, but generally if food is eaten in moderation there will not be a problem. This is a low-iodine diet, not a no-iodine diet. We don't want following this diet to be anxiety producing. The main items to avoid for the two weeks prior to ablation are: o Seafood and products from the sea o Iodized and sea salt o Dairy products o Margarine o Egg yolks (whites are fine) o Red dye #3 o Blackstrap Molasses o Chocolate o Soy products o Bread products containing iodate dough conditioner o Iodine in CT scan contrast dye 4 week prior o Iodine in nutritional supplements or medications Link to website and cookbook: http://www.thyca.org/ This material was adapted from ThyCa: [employer] Revised 11/2011 THYROGEN INJECTIONS First Injection TBD Second Injection TBD Thyrogen helps any thyroid cancer cells in the body to take up the radioactive iodine. I-131 works best when the levels of TSH (thyroid stimulating hormone) are high. Thyrogen is given as an injection into the muscle of the buttock for two days in a row, ~24 hours apart. These injections are given here in the office or on 1 [place] inpatient unit if they are scheduled on a weekend day. Thyrogen is used to help identify thyroid disease by testing the blood for a hormone called thyroglobulin that will be drawn on day 3, prior to WELLER. You should remain well hydrated prior to treatment with Thyrogen. The most common side effects reported are nausea and headache. DAY OF ADMINISTRATION: Report to 2K at [facility] You will need to have your blood drawn a couple of hours before your visit. This allows time for your blood work to be processed. We need these results before we can administer WELLER. Go to 3K, the outpatient blood draw area two hours before your schedule appointment with us. After your blood is drawn, please report to for your intake and instructions about WELLER. You will need to come alone. Bring a bottle of water to swallow the pill(s). Start sour candies 24 hours after administration. HOME ISOLATION After receiving radioiodine, drive home immediately, with NO stops. Remain in designated areas within the residence to minimize contact and spread of iodine contamination. Post emergency contact phone numbers near the phone. Drink plenty of fluids the first three days to enhance elimination of radioiodine. Make sure you move your bowels by the second day (using stool softeners if needed). Flush toilet twice, with the lid down, and wash hands thoroughly after each use. Men should sit to urinate to avoid unnecessary splashing. Bathe and shower at least daily. Visitors should be discouraged except for personal safety checks, deliver groceries, prescription medications, etc. Maintain distance of six feet or more from any visitor and limit visit to less than [address] disposable trash in separate containers and hold for two weeks before disposal. Use disposable plastic utensils and rinse before disposal. Do not leave premises or visit public areas for three days. Clothing, bedding, and linens may be washed in residence, separate from other laundry. Discourage common use of premises for two weeks. Avoid physical contact for one week, especially with women and children. Expect a call from your healthcare provider sports team marketing intern after 24 hours. If you have questions or concerns after your WELLER please contact us at the following phone numbers: Daytime: 8AM - 5PM: Nighttime: 5PM - 8AM: and ask to speak with Radiation Oncology doctor education department chair. MEALS You will continue to follow a low iodine diet for 2-3 days as specified by the physician, though it doesn't need to be as strictly followed as before. MEDICATIONS If you are on medications, please continue to take them as prescribed. Radiation continues to leave your body for about 1 week. Take good care of yourself: o Drink 6-8 glasses of water and fluids each day to help remove the WELLER from your body. o Take a shower each day and wash hands often. You can use your normal soap and wet cleaner machine. o Have a private bathroom and toilet if possible. o Suck on sour candy or chew gum to help prevent swelling in your mouth. POST TREATMENT INSTRUCTIONS (3 DAYS AFTER) ??? You will resume your regular diet and restart any medications that may have been stopped. ??? Minimize contact (staying at least 6 feet away) with small children or women for 1 weekafter administration. ??? Do not sleep in the same bed with anyone for 1 week after WELLER. THIS INCLUDES PETS ??? Wash your eating utensils separately for 1 week after WELLER. ??? For 1 week, clean up any spills after using the toilet with toilet paper. Flush twice (with lid down), and wash hands well after each use. ??? Sexual activity may resume after 1 week, but an appropriate control method must be used. ??? Discuss with your doctor if you want to become or you want to father a child. ??? should be discontinued 2 months prior to the iodine administration, but can be resumed with subsequent births. ??? Minimize contact with household pets. ??? There are no restrictions or special precautions for going back to work after 1 week, unless youhave a job that puts you in frequent or close contact with women, children, or involves food preparation. Discuss your job situation with your doctor if you have questions. ??? Do not prepare meals for others for 1 week. ??? Do not wear contact lenses for 1 week after iodine administration. ??? Showering is encouraged to be done daily. CONTAMINATION CONTROL These guidelines are provided to assist patients with control of radioiodine during treatment. WELLER has been administered to control a hyper functioning thyroid gland or to help eradicated thyroidcancer metastases. The WELLER readily seeks out this tissue to do its job, but a fraction is also released from the body in normally secreted fluids. Urine, feces, perspiration, tears, and saliva all contain a small fraction of the administered dose of WELLER. Anything this material comes into contact with may become contaminated with the WELLER material. In order to control the contamination to acceptable levels, you need to be aware of these potential sourcesand take the following precautions: o Wipe down bathroom and kitchen surfaces and discard contaminated trash in a designated bag. o Cover nose and mouth with disposable tissues when sneezing or coughing. o Double bag all waste and hold for two weeks. o Clothing, bedding and linens can be laundered in your residence after 1 week, separate from other laundry. You do not need special soap, and you don't need to clean the washer/dryer. o Prevent anyone from using or contacting the same household items you have been using for 1 week, including phones, remotes, I pads, etc. o Anyone assisting you should be wearing disposable gloves. o After 2 weeks, all danger from contamination has passed. The WELLER decays away and approaches normalenvironmental levels. documented in this encounter Progress Notes Mike Miguel MD - 03/05/2021 1:00 PM EST Images from the original note were not included. Radiation Oncology New Patient Visit PATIENT NAME: Lorin Cardona DATE OF : 1955 HISTORY OF PRESENT ILLNESS Lorin Cardona is a 66 y.o. female who is seen in consultation in the section of Radiation Oncology at [facility] regarding her thyroid cancer ONCOLOGIC HISTORY Overview: mpT2 pN1b (Stage II) papillary thyroid cancer, s/p total thyroidectomy and central / MRNDsxn 01/07/21, 3.9 cm, AI (+, focal), LI (+), PNI (-), ETE (-), margins (-), 10/30 LN (+), involving leftlateral neck, largest 1.5 cm, BLADIMIR (-) Details: Presentation 65 year old female who presented for evaluation of multiple thyroid nodules noted on an ultrasound. The ultrasound was performed initially due to a significant family history of multiple siblings (two brothers and a sister) with thyroid cancer. She was asymptomatic at that time. 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 De Dios, and saw her on 12/04/20. Prior to that visit she had an FNA of oneof the nodules, returning as suspicious for malignancy. FNA was also performed of a level level IV node at her visit with Dr. De Dios, and pathology returned as papillary thyroid cancer. She underwentsurgery as noted below. she has no history of radiation exposure as a child. Staging & Therapy Thyroid, Parathyroid and Cervical Ultrasound 12/04/20 ([place]): Thyroid Isthmus: Nodules: none Right lobe: Nodules: There is a hypoechoic nodule measuring [...] Generally heterogeneous without discrete nodules Cervical lymph nodes?? Central neck: there is a highly suspicious [...] positioning of the ultrasound probe against the clavicle Total thyroidectomy, modified radical neck dissection (left), central neck dissection 01/07/21: -Findings: obvious tumor in right thyroid. Grossly positive central neck disease laterally, largest node in left central neck posterior to carotid artery. Therapeutic central neck dissection done. Bilateral recurrent laryngeal nerves and left upper parathyroid preserved. Other parathyroids not seen. Grossly- positive left lateral neck disease, standard left lateral neck dissection done. -Pathology: Tumor ?Tumor Focality: ??Multifocal ?Tumor Characteristics ? [...] Prashant Level(s) Involved: ??Level ; ??Left lateral ? Size of Largest Metastatic Deposit: ??1.5 cm ? Extranodal Extension (BLADIMIR): ??Not identified ?Number of Lymph Nodes Examined: ??23 Pertinent Lab Hx: Date Tg Tg Ab TSH 02/20/21 Pending LC / MS 48 0.47 Post Tx Other Pertinent Issues: Center Hole Reamer: not referred yet. Would prefer to Dr. Luis. Levothyroxine: 125 mcg. Currently, she has the following symptoms: Symptom Description Intervention Neck Sx Denies Voice Changes Denies Xerostomia Denies Dysphagia Denies Sx Hyperthyroidisim Denies emotional lability, tremor, palpitations, heat intolerance, excessive perspiration Sx Hypothyroidisim Denies cold intolerance, weight gain, myalgias Fatigue No Other ECOG PS: 0 Grade ECOG PERFORMANCE STATUS 0 Fully active, able to carry on all pre-disease performance without restriction 1 Restricted in physically strenuous activity but ambulatory and able to carry out work of a light or sedentary nature 2 Ambulatory and capable of all selfcare but unable to carry out any work activities; up and about > 50% of waking hours 3 Capable of only limited selfcare; confined to bed or chair more than 50% of waking hours 4 Completely disabled; cannot carry on any selfcare; totally confined to bed or chair EXAM There were no vitals filed for this visit. Physical Exam Constitutional: Appearance: She is well-developed. Cardiovascular: Rate and Rhythm: Normal rate. Pulmonary: Effort: Pulmonary effort is normal. Breath sounds: Normal breath sounds. Skin: Findings: No erythema. Neurological: Mental Status: She is alert and oriented to person, place, and time. Cranial Nerves: No cranial nerve deficit. Psychiatric: Behavior: Behavior normal. HISTORY Allergies as of 03/05/2021 ??? (No Known Allergies) Past Medical History: Diagnosis Date ??? GERD (gastroesophageal reflux disease) ??? Kidney stones ??? Osteopenia Past Surgical History: Procedure Laterality Date ??? PRG EMG, LARYNX N/A 01/07/2021 FACIAL NERVE MONITORING, SETUP LARYNGEAL (WRVU 1.57) performed by Fabienne De Dios MD at [facility] MAIN OR ??? PRO REMOVAL NODES, NECK, CERV MOD RAD Left 01/07/2021 @CERVICAL LYMPHADENECTOMY (MODIFIED RADICAL NECK DISSECTION) (WRVU 23.95) performed by Fabienne De Dios MD at [facility] MAIN OR ??? PRO THYROIDECTOMY, MALIG, LTD NECK SURG Bilateral 01/07/2021 THYROIDECTOMY, FOR MALIGNANCY, LIMITED NECK DISSECTION (WRVU 22.01) performed by Tony De Dios MD at [facility] MAIN OR Social History Socioeconomic History ??? [...] on file Housing Stability: Not on file No family history on file. ROS: I reviewed and agree with the nursing review of systems accompanying this encounter. The remainder of the comprehensive review of systems was negative with the exception of the pertinent positivesand negatives noted above. MEDICATIONS Current Outpatient Medications on File Prior to Visit Medication Sig Dispense Refill ??? levothyroxine (Synthroid) 125 mcg Tablet Take 1 tablet by mouth daily. 90 tablet 3 ??? acetaminophen (Tylenol) 500 mg Tablet Take 2 tablets by mouth as needed for Pain. ??? Ibuprofen 200 mg Capsule Take 1 capsule by mouth as needed. ??? calcium carbonate (Tums) 200 mg calcium (500 mg) Tablet, Chewable Take 2 tablets by mouth 3 times daily (after meals). ??? diphenhydramine HCl (BENADRYL ALLERGY ORAL) Take by mouth. ??? docosahexaenoic acid/epa (FISH OIL ORAL) Take by mouth daily. ??? fluticasone propionate (Flonase Allergy Relief) 50 mcg/actuation [place], Suspension 1 spray by Each Nare route as needed for Rhinitis. ??? multivitamin Capsule Take 1 capsule by mouth every other day. ??? omeprazole (PriLOSEC) 20 mg Capsule, Delayed Release(E.C.) Take 20 mg by mouth daily. ??? ascorbic acid, Vitamin C, (Vitamin C) 500 mg Tablet Take 500 mg by mouth daily. No current facility-administered medications on file prior to visit. IMAGING I have personally reviewed the imaging reports and images referenced in the oncologic hx and agree with the assessment as stated. Further pertinent imaging data below LABORATORY VALUES See Oncologic Hx CONTRAINDICATIONS TO RADIOTHERAPY NO YES: Date, site, dose (women only) X Prior Radiotherapy X Collagen-Vascular dz X ASSESSMENT / PLAN THYROID CANCER Staging US of thyroid, central neck and bilateral neck (DH) Pathologic Evaluation of the Primary Oncologic Resection, now 9 weeks out from surgery Further Staging Outpatient thyroglobulin Therapy Discussion Lorin Cardona has received an oncologic resection of her malignancy. she has features that increase the risk of recurrence including 9 LN (+) and size 3.9 cm. Per NNCN guidelines, her risk category is intermediate, and adjuvant radioactive iodine 131 (WELLER) is to be considered. We discussed the rationale, logistics (including the need for a low iodine diet prior to WELLER administration, the use of thyrogen injections in the two days prior to WELLER administration, differences in outpatient and inpatient WELLER administration, radioactivity precautions in both scenarios, and the need for a post-administration WELLER scan) and efficacy of adjuvant WELLER. We discussed the risks of therapy, including but not limited to short term sequelae (fatigue, esophagitis, skin erythema, cough, parotitis, dysgeusia, nausea/vomiting, cytopenias) and longterm sequelae (radiation pneumonitis, alteration of anterior neck skin cosmesis, dysphagia, xerostomia, risk of second malignancies, and the rare possibility of other significant damage to soft tissue, bone or skin requiring surgical or medical intervention). Ms. Cardona expressed an understanding of these risks. The patient had a number of questions regarding optimal therapy and potential side effects. These questions were answered to her satisfaction Therapy Decision Proceed with radioactive I-131 as an outpatient pending Tg. OTHER ISSUES 45 minutes of this 60 minute visit were spent discussing treatment options. Jessica Oneal, RN - 03/05/2021 1:00 PM EST RADIATION ONCOLOGY NURSING INITIAL NURSING ASSESSMENT IDENTIFICATION: Lorin Cardona is a 66 y.o. year-old female with Thyroid PRESENTING SYMPTOMS/CHIEF COMPLAINT: REVIEW OF SYSTEMS: Review of Systems Constitutional: Negative. HENT: Positive for nosebleeds (Right sided occ with blowing of nose). Eyes: Negative. Respiratory: Negative. Cardiovascular: Negative. Gastrointestinal: Negative. Endocrine: Positive for hot flashes. Genitourinary: Negative. Musculoskeletal: Negative. Skin: Negative. Neurological: Negative. Hematological: Negative. Psychiatric/Behavioral: Negative. IN THE PAST 12 MONTHS HAVE YOU: Fallen more than one time? No Injured yourself as result of the fall? No Experienced difficulty with walking/problems with balance? No Do you use any assistive devices? No Any history of collagen vascular diseases:No Any Implanted Devices/Hardware: No If yes please put alert in ARIA patient summary Prior Radiotherapy: No Prior Chemotherapy: No Prior Hormone Therapy: No LEARNING ASSESSMENT REVIEWED: Yes ADVANCED DIRECTIVE: Yes, will bring it at that time PAIN ASSESSMENT: [0] out of 10 *eD-H Adult PCS Flow Sheet if 4 or above SOCIAL ASSESSMENT: See EDH social assessment information entered. Support Systems: , Tang RADIATION SPECIFIC TEACHING: PLAN: Per Dr. Miguel Answers for HPI/ROS submitted by the patient on 03/05/2021 Distress: 2 documented in this encounter Plan of Treatment [...] MD Oncology [facility] HEMATOLOGY ONCOL [place], [place] [address] (Wo rk) 12/16/2021 Scheduled View [...] gland documented in this encounter Care Teams Glass Production Machine Operator Relationship Specialty Start Date End Date Viki Elaine PA PCP - General Internal Medicine 12/04/[address] [place] [address] [place] [address] documented as of this encounter
--- OUTSIDE RECORDS SUMMARY | 2021-12-04 13:56 | XMS_ITS | Encounter Summary ---
:1955 Author Organization [facility] [place] [address] Care Team Providers Name Role Phone Viki Elaine Primary Care Provider [phone] Encounter Details Date Type Department Care Team Description 04/16/2021 Hospital Encounter Hematology and Oncology at Thyroid cancer [facility] [place] [address] Social History Tobacco Use Types Packs/Day [...] 500 mg Tablet mouth every other day. levothyroxine (Synthroid) Take 1 tablet by 90 tablet 3 02/0708/14/2021 125 mcg Tablet mouth daily. Ibuprofen 200 mg Capsule Take 1 capsule by 0 03/202010/14/2021 mouth as needed. fluticasone propionate 1 spray by Each 0 06/04/2021 (Flonase) 50 mcg/actuation Nare route as [place], Suspension needed for Rhinitis. omeprazole (PriLOSEC) 20 [...] Visit (TeleHealth) Hematology and BaumannMarija MD Oncology [facility] DR HEMATOLOGY ONCOL [place] [address]375 (Wo rk) 12/16/2021 Scheduled View Only Radiation Oncology 12/17/2021 Scheduled View Only Radiation Oncology 12/18/2021 Scheduled View Only Radiation Oncology 12/18/2021 Infusion Hematology and Oncology 12/21/2021 Scheduled View Only Radiation Oncology 12/22/2021 Scheduled View Only Radiation Oncology documented as of this encounter Procedures Procedure Name Priority Date/Time Associated Comments Diagnosis HC VENIPUNCTURE Routine 04/16/2021 11:52 Thyroid cancer Result s for this AM EST procedure are i n the results section. HC THYROID STAT 04/16/2021 11:52 Thyroid cancer Results f or this STIMULATING HORMONE, AM EST procedu re are in SERUM the results section. documented in this encounter Results Thyroglobulin (04/16/2021 11:52 AM EST) Analysis Performed At Patho logist Time Signature Thyroglobulin Not Perf <=54.9 [facility] ng/mL [facility] Comment: Thyroglobulin cannot be accurately measu red by the [facility] Chemistry immunoassay method because this specimen contains an ti-thyroglobulin antibody. This order for thyroglobulin measurement by immunoa ssay has been cancelled, and a reflex order for thyroglobulin measurement by m ass spectrometry has been placed. Subsequent thyroglobulin measurements fo r this patient should also be performed by mass spectrometry. Any additional ord ers should be placed using the [facility] Request [id number] indicating requested lab is Thyroglobulin by LC-MS/MS, [facility] test [id number]. If Thyroglobulin Antibody testing is needed use [id number] Thyroglobulin Ab. Thyroglob Ab 20.9 0.0 - 40.0 IU/mL [facility] Specimen Anatomical Collection Method Collection Time Receive d Time (Source) Location / / Volume Laterality Blood 04/16/2021 11:52 04/17/2021 7:32 AM EST AM EST Resulting Agency Comment Spec In Lab Mike Miguel MD CHEMISTRY ORDERABLES Performing Organization Address City/State/[place] [address] (ABNORMAL) TSH (04/16/2021 11:52 AM EST) P athologist Signature TSH >100.00 0.27 - AKASH MORELAND (H) 4.20 [facility] mcIU/mL [facility] Comment: Reference Interval (mcIU/mL): Females: ??First Trimester: 0.23-3.88 ??Second Trimester: 0.22-3.90 ??Third Trimester: 0.44-4.66 Specimen Anatomical Collection Method Collection Time Receive d Time (Source) Location / / Volume Laterality Blood 04/16/2021 11:52 04/16/2021 AM EST 12:22 PM EST Resulting Agency Comment Spec In Lab Mike Miguel MD CHEMISTRY ORDERABLES Performing Organization Address City/State/[place] [address] documented in this encounter Visit Diagnoses Diagnosis Thyroid cancer Malignant neoplasm of thyroid gland documented in this encounter Care Teams Dobie Worker Relationship Specialty Start Date End Date Viki Elaine PA PCP - General Internal Medicine 12/04/[address] [place] [address] [place] [address] documented as of this encounter
--- OUTSIDE RECORDS SUMMARY | 2021-12-04 13:56 | XMS_ITS | Encounter Summary ---
:1955 Author Organization [facility] Address [place] [id number] Care Team Providers Name Role Phone Viki Elaine Primary Care Provider [phone] Reason for Referral Diagnostic Test (Routine) - Closed Specialty Diagnoses / Procedures Referred By Contact Refer red To Contact Radiology Diagnoses Thyroid cancer Mike Miguel MD [facility] Rad Nuclear Med Procedures NM I-131 Whole Body Scan Post therapy [facility] [place] [address] [place] [address] Referral ID Status Reason Start Date Expiration Date Visits V isits Requested Authorized [id number] Closed Specialty 04/01/2021 09/29/2022 1 1 Service Requested Reason for Visit Diagnostic Test (Routine) - Closed Specialty Diagnoses / Procedures Referred By Contact Refer red To Contact Radiology Diagnoses Thyroid cancer Mike Miguel MD [facility] Rad Nuclear Med Procedures NM I-131 Whole Body Scan Post therapy [facility] [place] [address] [place] [address] Referral ID Status Reason Start Date Expiration Date Visits V isits Requested Authorized [id number] Closed Specialty 04/01/2021 09/29/2022 1 1 Service Requested Encounter Details Date Type Department Care Team Description 04/23/2021 Hospital Encounter Nuclear Medicine at Mike Miguel, Thyroid cancer Letty Wayne MD [facility] [address] [place] [address] RADIATION ONCOLOGY [phone] [place], [place] [address] Social History Tobacco Use Types [...] carbonate (Tums) Take 2 tablets by 0 /03/2020 200 mg calcium (500 mg) mouth 3 [...] 06/04/2021 (Flonase) 50 mcg/actuation Nare route as [place], Suspension needed for Rhinitis. omeprazole (PriLOSEC) 20 [...] Hematology and Marija Baumann MD Oncology [facility] HEMATOLOGY ONCOL [facility] [place] [facility]375 (Wo rk) 12/16/2021 Scheduled View Only Radiation Oncology 12/17/2021 Scheduled View Only Radiation Oncology 12/18/2021 Scheduled View Only Radiation Oncology 12/18/2021 Infusion Hematology and Oncology 12/21/2021 Scheduled View Only Radiation Oncology 12/22/2021 Scheduled View Only Radiation Oncology documented as of this encounter Procedures Procedure Name Priority Date/Time Associated Diagnosis Comme nts NM I 131 WHOLE BODY Routine 04/23/2021 12:07 PM Thyroid cancer Results for this SCAN POST THERAPY EDT procedure are in the results section. documented in this encounter Results NM I-131 Whole Body [...] who have questions please contact the health career technical counselor that requested your imaging first. ? Electronically signed by: Tylor Hernandez, [facility] ([phone]), at 04/23/2021 4:13 PM Narrative 04/23/2021 4:13 [...] ho have questions please contact the health career technical counselor that requested your imaging first. Electronically signed by: Tylor Hernandez, [facility] ([phone]), at 04/23/2021 4:13 PM Mike Miguel MD IM NM ORDERABLES documented in this encounter Visit Diagnoses Diagnosis Thyroid cancer Malignant neoplasm of thyroid gland documented in this encounter Care Teams Armor Reconnaissance Specialist Relationship Specialty Start Date End Date Viki Elaine PA PCP - General Internal Medicine 12/04/[address] [place] [address] [place] [address] documented as of this encounter
--- OUTSIDE RECORDS SUMMARY | 2021-12-04 13:56 | XMS_ITS | Encounter Summary ---
:1955 [place] [address] Care Team Providers Name Role Phone Viki Elaine Primary Care Provider [phone] Reason for Visit Auth/Cert Specialty Diagnoses [...] Expiration Date Visits Requ ested Visits Authorized [id number] 1 1 Encounter Details Date Type Department Care Team Description 01/07/2021 - Hospital Encounter 5 Ryley Gagnon, Thyroid c ancer 01/08/2021 [facility] Tylor Perez [facility] [address] Wan GENERAL SURGERY [place] [id number] [phone] [id number] Social History Tobacco Use Types Packs/Day Years [...] Sign Reading Time Taken Comments Blood Pressure 141/74 01/08/2021 7:50 AM EST Pulse 66 01/08/2021 7:50 AM EST Temperature 37 ??C (98.6 ??F) 01/08/2021 7:50 AM EST Respiratory Rate 18 01/08/2021 7:50 AM EST Oxygen Saturation 98% 01/08/2021 7:50 AM EST Inhaled Oxygen Concentration - - [...] Lorin Cardona Patient Age: 66 y.o. Language: Hungarian Race: White Ethnicity: Not nor Admit date: [...] Hospital Course: Patient was admitted electively to [facility] via the same day surgery program and [...] - follow-up appointment w/ Dr. Gagnon in k - 02/21/20 (get labs drawn prior) - [...] Take NSAIDS or Tylenol every 6 hours zbycfx-lrk-bzxtz for the first 3-5 days following surgery [...] will call you to discuss the report [id number] hours of its release. Follow-up Appointment: Will be scheduled with Dr. Gagnon and/or Yulia Kincaid APRN, in 6 weeks If you do not already have a follow up appointment, the date and time as well as any required labs will be mailed to you Please call [phone] to confirm the date and time of your appointment if you do not hear from usin the next 2 weeks Call Doctor for: Call if you have trouble talking or breathing (call [phone] if this is severe) Call if you [...] with your PCP. Phone number for questions: [phone] before 5 PM on weekdays [phone] after 5 PM and on weekends/holidays. Ask for the general surgery resident water conservationist. DRAIN CARE INSTRUCTIONS Drains help to keep [...] and into the bulb. If youhave a Caroline drain, the clot should move into the dressing. Alexandre-Peguero Drainage Record NAME: Date of Surgery: Date: Time: If more than one drain, which one: Drainage Amount (per drain) Total Amount (per drain; in 24 hours) General Instructions None Future Appointments and Orders Future Appointments and Orders Future Appointments Provider Department Dept Phone 02/20/2021 10:20 AM LAB, THREE L Lab [address] [place] [address] Arrive at: Clock Repair Technician Area 02/20/2021 11:20 AM Yulia Kincaid APRN General Surgery at [facility] Arrive at: Clock Repair Technician Area Future Orders Complete By Expires Thyroglobulin [BMQ272 Custom] 02/19/2021 (Approximate) 08/21/2021 Process Instructions: This order includes both Thyroglobulin and Thyroglobulin Antibody assays. Scheduling Instructions: Comments: Questions: TSH [DXQ370 Custom] 02/19/2021 (Approximate) 08/21/2021 Process Instructions: Scheduling Instructions: Comments: Questions: Follow-Up: Future Appointments Date Time Provider Department Center 02/20/2021 10:20 AM LAB, THREE L Lab [address] [place] [address] 02/20/2021 11:20 AM Yulia Kincaid APRN [facility] SURG [facility] Primary Care Provider: INEZ Lindsey [phone] Follow-up Recommendations for Providers: please see discharge [...] documented in this encounter Discharge Instructions Patient Ezequiel Obando MD - 01/08/2021 8:35 AM EST Images [...] Take NSAIDS or Tylenol every 6 hours sstino-kyj-rzhxm for the first 3-5 days following surgery [...] will call you to discuss the report [id number] hours of its release. Follow-up Appointment: Will be scheduled with Dr. Gagnon and/or Yulia Kincaid APRN, in 6 weeks If you do not already have a follow up appointment, the date and time as well as any required labs will be mailed to you Please call [phone] to confirm the date and time of your appointment if you do not hear from usin the next 2 weeks Call Doctor for: Call if you have trouble talking or breathing (call [phone] if this is severe) Call if you [...] with your PCP. Phone number for questions: [phone] before 5 PM on weekdays [phone] after 5 PM and on weekends/holidays. Ask for the general surgery resident water conservationist. DRAIN CARE INSTRUCTIONS Drains help to keep [...] and into the bulb. If youhave a Caroline drain, the clot should move into the [...] 06/04/2021 (Flonase) 50 mcg/actuation Nare route as Mclean, Suspension needed for Rhinitis. omeprazole (PriLOSEC) 20 [...] instructions provided. Skin CDI.VSS. Patient escorted to lobby. Ezequiel Ferris MD - 01/07/2021 5:29 PM [...] Report received from LIZABETH Ram. Neck incision CHILD CARE PROVIDER with dermabond intact, no drainage, well-approximated. Ice [...] vs's. documented in this encounter H&P Notes uSn Lind - 01/07/2021 2:31 PM ESTSummary: H&P [...] fluticasone propionate (Flonase Allergy Relief) 50 mcg/actuation Mclean, Suspension 1 spray by Each Nare route [...] her questions were answered. Sun Lind MS3 [facility] CirJe fajardo MD - 01/07/2021 7:07 AM EST Surgery [...] COVID test: Lab Results Component Value Date [id number] Not Detected 01/07/2021 66 y.o. female here for Present on Admission: ??? Thyroid cancer Patient has not been admitted to a hospital within the last 30 days. Patient receiving hospital care under [facility]P Admission (IP) status. Admission order reviewed. Primary Insurance on file: MEDICARE Secondary Insurance on file:@ Primary care provider on file: INEZ Lindsey [phone] Pharmacy: [facility] - [place], [place] - [address] [facility] [address] [facility] [address] Advance Directive on file and Code Status: <no information>, Attempt Cardiopulmonary Resuscitation - Inpatient Patient???s Functional Status: Independent [address] [facility] [address] Assessment: Patient with no apparent RNCM/SW needs at this time. No housing, transportation, insurance, resources concerns identified at this time. Supports in place to achieve a safe post-hospital transition. No identified barriers to accessing necessary care and/or follow-up after discharge. Plan: Patient to d/c to home via private car when medically ready. Registered Nurse Environmental Services Tech / Medical Secretary Teacher will continue to follow patient???s progress and [...] Operative Note Patient Name: Lorin Cardona : [id number] MR#: [id number] Case Date: 01/07/2021 Surgeon: Surgeon(s) and Role: [...] Gagnon MD - 01/07/2021 8:24 AM EST [facility] Operative Note Patient Name: Lorin Cardona : [id number] MR#: [id number] Case Date: 01/07/2021 Surgeon: Surgeon(s) and Role: [...] the right lobe demonstrating suspicious for malignancy ([place] 5)cytology. She has a very suspicious sonographically [...] anesthesia was achieved by anesthesiology with the [employer] recurrent laryngeal nerve monitoring system. A natural [...] sternocleidomastoid muscle was dissected out and a Volga drain placedaround this. The omohyoid muscle was [...] the lateral compartment. We then placed a 15-Bulgarian round channel drain in the left lateral [...] (TeleHealth) Hematology and Marija Baumann MD Oncology [facility] DR H[place]ATOLOGY [place] [address] (Wo rk) 12/16/2021 Scheduled View [...] athologist Signature TSH 0.47 0.27 - 4.20 [facility] mcIU/mL [facility] Comment: Reference Interval (mcIU/mL): Females: ??First Trimester: 0.23-3.88 ??Second Trimester: 0.22-3.90 ??Third Trimester: 0.44-4.66 Specimen Anatomical Collection Method Collection Time Receive d Time (Source) Location / / Volume Laterality Blood 02/20/2021 10:02/20/2021 AM EST 10:31 AM EST Resulting Agency Comment Spec In Lab Windy Gagnon MD CHEMISTRY ORDERABLES Performing Organization Address City/State/[place] [address] (ABNORMAL) Thyroglobulin (02/20/2021 10:14 AM EST) Analysis Performed At Patho logist Time Signature Thyroglobulin Not Perf <=54.9 AKASH MORELAND ng/mL [facility] Comment: Thyroglobulin cannot be accurately measu red by the [facility] Chemistry immunoassay method because this specimen contains an ti-thyroglobulin antibody. This order for thyroglobulin measurement by immunoa ssay has been cancelled, and a reflex order for thyroglobulin measurement by m ass spectrometry has been placed. Subsequent thyroglobulin measurements fo r this patient should also be performed by mass spectrometry. Any additional ord ers should be placed using the [facility] Request [id number] indicating requested lab is Thyroglobulin by LC-MS/MS, [facility] test [id number]. If Thyroglobulin Antibody testing is needed use [id number] Thyroglobulin Ab. Thyroglob Ab 48.0 (H) 0.0 - 40.0 IU/mL [facility] Specimen Anatomical Collection Method Collection Time Receive d Time (Source) Location / / Volume Laterality Blood 02/20/2021 10:02/20/2021 2:30 AM EST PM EST Resulting Agency Comment Spec In Lab Windy Gagnon MD CHEMISTRY ORDERABLES Performing Organization Address City/State/[place] [address] Calcium (01/08/2021 9:06 AM EST) P athologist Signature Calcium 8.8 8.5 - 10.5 [facility] mg/dL [facility] Specimen Anatomical Collection Method Collection Time Receive d Time (Source) Location / / Volume Laterality Blood 01/08/2021 9:06 AM 9:33 EST AM EST Resulting Agency Comment Spec In Lab Windy Gagnon MD CHEMISTRY ORDERABLES Performing Organization Address City/[facility]/ZIP Code Phon e Number [address] Lavender Tube HOLD (01/07/2021 6:26 PM EST) Patholo gist Method Time Signature Lavender Hold Sample in [facility] LABORATORY Specimen Anatomical Collection Method Collection Time Receive d Time (Source) Location / / Volume Laterality Blood Venous Draw / 01/07/2021 6:26 PM 01/08/20 21 6:47 Unknown EST PM EST Je Naylor MD HEMATOLOGY ORDERABLES Performing Organization Address City/[facility]/[place] [address] Gold Tube HOLD (01/07/2021 6:26 PM EST) P athologist Signature Gold Hold Sample in [facility] LABORATORY Specimen Anatomical Collection Method Collection Time Receive d Time (Source) Location / / Volume Laterality Blood Venous Draw / 01/07/2021 6:26 PM 01/08/20 21 6:47 Unknown EST PM EST Je Naylor MD CHEMISTRY ORDERABLES Performing Organization Address City/[facility]/[place] [address] COVID-19 Harshad Antibody (01/07/2021 6:26 PM EST) Analysis Performed At Patho logist Time Signature SARS-CoV-2 Detected [facility] Harshad [facility] Comment: This is a total antibody [...] be due to a past infection with cyv-PELJ-RdB-2 coronavirus strains, such as coronavirus HKU1, NL63, OC43, or 229E. This test was performed using the Elecsy s Trwk-CVFU-WoQ-2 S total antibody assay on the Julieth Luis e801 analyzer. This serology test is available following FDA Emergency Use Authorizatio n, however it has not been reviewed by the FDA, nor is it FDA cleared or approv ed. The performance characteristics of this test were determined by the [facility] ent of Pathology and Laboratory Medicine at [facility]. The laboratory is certified under the Clinical [...] fact sheets at the following FDA website: https://www.fda.gov/medical-devices/tkiqnseznev-iqvkyyo-8532-wovwv-05-xagmtzfpi- ohv-rgxgmzhrivhtuh-gejdoyk-devices/fxleh-lcakxklulbt-kcno Specimen Anatomical Collection Method Collection Time Receive d Time (Source) Location / / Volume Laterality Blood 01/07/2021 6:26 PM 6:47 EST PM EST Windy Gagnon MD CHEMISTRY ORDERABLES Performing Organization Address City/[facility]/[place] [address] PTH (01/07/2021 1:24 PM EST) P athologist Signature PTH 21 15 - 65 [facility] pg/mL [facility] Specimen Anatomical Collection Method Collection Time Receive d Time (Source) Location / / Volume Laterality Blood 01/07/2021 1:24 PM 1:40 EST PM EST Resulting Agency Comment Spec In Lab Windy Gagnon MD CHEMISTRY ORDERABLES Performing Organization Address City/[facility]/ZIP [facility] [place] [address] Specimen to Pathology (01/07/2021 11:50 AM EST) Specimen Anatomical Collection Method Collection Time Receive d Time (Source) Location / / Volume Laterality AP Specimen 01/07/2021 11:50 01/07/2021 AM EST 11:50 AM EST Narrative [facility] - 01/07/2021 11:50 AM EST Specimen requisition ordered. ??Separate Pathology report to follow Windy Gagnon MD PATHOLOGY/CYTOLOGY ORDERABLE S Performing Organization Address City/[facility]/[place] [address] Specimen to Pathology (01/07/2021 9:59 AM EST) Specimen Anatomical Collection Method Collection Time Receive d Time (Source) Location / / Volume Laterality AP Specimen 01/07/2021 9:59 AM 9:59 EST AM EST Narrative [facility] - 01/07/2021 9:59 AM EST Specimen requisition ordered. ??Separate Pathology report to follow Windy Gagnon MD PATHOLOGY/CYTOLOGY ORDERABLE S Performing Organization Address City/State/[place] [address] Specimen to Pathology (01/07/2021 9:39 AM EST) Specimen Anatomical Collection Method Collection Time Receive d Time (Source) Location / / Volume Laterality AP Specimen 01/07/2021 9:39 AM 9:39 EST AM EST Narrative [facility] - 01/07/2021 9:39 AM EST Specimen requisition ordered. ??Separate Pathology report to follow Windy Gagnon MD PATHOLOGY/CYTOLOGY ORDERABLE S Performing Organization Address City/[facility]/[place] [address] Surgical Pathology Report (01/07/2021 9:26 AM EST) Component Value Ref Test Analysis Performed At [facility] gist Range Method Time Signature Surgical [id number] ? Location: 5WST; 0503; B [facility] Report The signing pathologist has (i) examined the relevant preparation(s) for the [facility] specimen(s) and (ii) rendered or [...] MD Verified: ??01/22/2021 13:52 ??Pathologist Performed at: ??-[facility] Dept. of Pathology, [place], [place] SYNOPTIC Specimen ? Procedure: ??Total thyroidectomy [...] level IV per prior FNA specimen (10- ?[id number])) ?Size of Largest Metastatic Deposit: ??1.5 cm [...] Tumor 3: A 9 Normal Block(s): ??A22 [facility] July 2020 Release SPECIMEN(S) SUBMITTED A [...] Sections/Processing: The lymph nodes are entirely submitted. Goring Cutter sections in 3 cassettes as follows: ?B1: [...] entirely submitted from superior to infe rior. Goring Cutter sections in 5 cassettes as follows: ?D1: ??Three nodes ?D2: ??One node bisected ?D3: ??One node bisected ?D4: ??Five nodes ?D5: ??Two nodes ??sns Specimen (Source) Anatomical Collection Method Collection Time Re ceived Time Location / / Volume Laterality 01/07/2021 9:26 AM EST Windy Gagnon MD PATHOLOGY/CYTOLOGY ORDERABLE S Performing Organization Address City/[facility]/ZIP Code Phon e Number [address] Specimen to Pathology (01/07/2021 9:26 AM EST) Specimen Anatomical Collection Method Collection Time Receive d Time (Source) Location / / Volume Laterality AP Specimen 01/07/2021 9:26 AM 9:26 EST AM EST Narrative [facility] - 01/07/2021 9:26 AM EST Specimen requisition ordered. ??Separate Pathology report to follow Windy Gagnon MD PATHOLOGY/CYTOLOGY ORDERABLE S Performing Organization Address City/[facility]/[place] [address] COVID-19 PCR (01/07/2021 7:28 AM EST) [facility] Method Time Signature SARS-CoV-2 Not Detected Not Detected AKASH RNA PCR [facility] Comment: This result should be interpreted [...] using the Simplexa COVID-19 Direct Assay by [employer] as authorized by the FDA issued Emergency [...] Department of Pathology and Laboratory Medicine at [facility], certified under the Clinical Laboratory Improvement Amendmen [...] clinical management guidance information are available at [facility] CDC Coronavirus Disease 2019 (COVID-19) webpage under Information fo r Healthcare Professionals (https://www.cdc.gov/coronavirus/2019-nc ov/hcp/index.html). Additional information about this and ot her EUA tests can be found in provider and patient fact sheets at the following FDA website: https://www.fda.gov/medical-devices/gztqogzbadr-tgqvhpz-2242-skvof-30-xybdaoynx- llz-einexzqilkhdir-veonxie-devices/cevjd-jvkjuwewnov-lkad SARS-CoV-2 Source SCADA ENGINEER Swab [facility] Specimen (Source) Anatomical Collection Method Collection Time Re ceived Time Location / / Volume Laterality Nasopharyngeal Swab 01/07/2021 7:28 01/07 AM EST 8:53 AM EST Comment: Symptoms->Surveillance Resulting Agency Comment Spec In Lab Windy Gagnon MD MICROBIOLOGY - GENERAL ORDER CORTEZ Performing Organization Address City/State/[place] [address] documented in this encounter Visit Diagnoses Diagnosis Thyroid cancer Malignant neoplasm of thyroid gland documented in this encounter Admitting Diagnoses Diagnosis Thyroid [...] Given 01/07/2021 5:44 PM EST 1,000 mg calcium carbonate (Tums) chewable tablet Given 01/07/2021 [...] Given 01/07/2021 4:41 PM EST 800 Units lactated ringers infusion New Bag 01/07/2021 1:44 PM EST 100 mL/hr 100 mL/hr 100 mL/hr, Intravenous, CONTINUOUS, Starting on Tue01/07/21 at 1400, Until Tue01/07/21 at 2359, Recovery (Recovery-Hospital Unit) levothyroxine (Synthroid) tablet 125 mcg Given 01/08/2021 [...] 20 mg, Oral, DAILY, First dose on Tue01/08/21 at 0900, Until Discontinued, DO NOT CRUSH [...] RN) 0054 (Given - Provider: Antoinette Valentin, LIZABETH) 0600 (Given - Provider: Antoinette Valentin RN) 1,000 mg, Oral, EVERY 6 HOURS SCHEDULED, [...] Morris RN) 0900 (Not Given - Provider: iLnda walker RN - Reason: Patient/family refused) 1,000 mg, Oral, 3 TIMES DAILY AFTER MEAL S, First dose on Tue01/07/21 at 1800, Until Discontinued, Routine cholecalciferol (Vitamin D3) (Vitamin D3) tablet 800 Units 164 (Given - Provider: Anu Morris RN)2040 (Given - Provider: Antoinette Valentin, LIZABETH) 0848 (Given - Provider: Linda Mahmood, LIZABETH) 800 Units, Oral, 3 TIMES DAILY, First do se on Tue01/07/21 at 1615, Until Discontinued, 40 units is equivalent to 1 mcg of cholecalciferol., Routine levothyroxine (Synthroid) tablet 125 mcg 0600 (Given - Provider: Antoinette Valentin RN) 125 mcg, Oral, EVERY MORNING, First dose on Tue01/08/21 at 0600, Until Discontinued, Routine pantoprazole EC (Protonix) tablet 20 mg 0848 (Given - Provider: Linda Mahmood RN) 20 mg, Oral, DAILY, First dose on Tue at 0900, Until Discontinued, DO NOT CRUSH [...] tarting on Tue01/07/21 at 1519, Until Kiki 12 at 1321, flush, Flush pertains to all indwelling lines. Flush per protocol found in the job aid using the link p rovided on this medication record., Recovery (Recovery-Hospi yahaira Unit), Routine Linked Groups Order Group 1: ondansetron (Zofran) tablet 4 mgJump to med 4 mg, Oral, EVERY 8 HOURS PRN, Starting on Tue01/07/21 at 1519, Until Kiki 12 at 1321, Nausea, Vomiting
If multiple antiemetics [...] arting on Tue01/07/21 at 1519, Until Kiki 12 at 1321, Nausea
May repeat times one in 30 minutes if ineffective. If multiple antiemetics a re ordered, use ondansetron first
R ecovery (Recovery-Hospital Unit) documented in this encounter Care Teams Hub Cutter Relationship Specialty Start Date End Date Viki Elaine PA PCP - General Internal Medicine 12/04/[address] [place] [address] [place] [address] documented as of this encounter
--- OUTSIDE RECORDS SUMMARY | 2021-12-04 14:01 | XMS_ITS | Encounter Summary ---
:1955 Author Organization [facility] Address [address] [place] [address] Care Team Providers Name Role Phone Viki Elaine Primary Care Provider [phone] Ewa Bynum MD Unavailable Vinay Mercado MD Unavailable Reason for Visit Reason Onset Date Comments Other 11/23/2021 Encounter Details Date Type Department Care Team Description 11/23/2021 Telephone [facility] Freddy Bynum MD Other Hematology & Oncology - [address] [place], [place] [id number] [place] [phone] (Wo rk) Social History Tobacco Use Types Packs/Day Years Used Date Never Smoker Smokeless Tobacco: Never Used Sex Assigned at Date Recorded Not on file COVID-19 Exposure Response Date Recorded In the last 10 days, have you been in contact Unable to asse ss 11/04/2021 0:31 EDT with someone who was confirmed or suspected to have Coronavirus/COVID-19? documented as of this encounter Functional Status Functional Status Response Date of Assessment Are you deaf or do you have serious difficulty hearing? No 11/05/2021 Are you blind or do you have serious difficulty seeing, No 11/05/2021 even when wearing glasses? Do you have serious difficulty walking or climbing Yes 11/05/2021 stairs? (5 years old or older) Do you have difficulty dressing or bathing? (5 years old Yes 11/05/2021 or older) Because of a physical, mental, or emotional condition, do Ye s 11/05/2021 you have difficulty doing errands alone such as visiting a doctor's office or shopping? (15 years old or older) Cognitive Status Response Date of Assessment Because of a physical, mental, or emotional condition, do Ye s 11/05/2021 you have serious difficulty concentrating, remembering, or making decisions? (5 years old or older) documented as of this encounter Miscellaneous Notes Telephone Encounter - Mona Galo - 11/23/2021 1043 [address] REC[address]DS TO DR. DIDIER REYES AT [facility] PER REQUEST, PATIENT GETTING CARE THERE NOW. Mona Galo 11/23/2021 10:43 documented in this encounter Plan of Treatment Not on filedocumented as of this encounter Visit Diagnoses Not on filedocumented in this encounter Care Teams Supervisor [employer] Relationship Specialty Start Date End Date Viki Elaine PA PCP - General 10/27/[address] [place] [address] [place] [phone] Ewa Bynum MD Neurology 11/04/[address] [place] [address] [address] [place] [address] Vinay Mercado MD 11/04/[address] [place] [address] [place], [place] [id number] documented as of this encounter
--- OUTSIDE RECORDS SUMMARY | 2021-12-04 14:01 | XMS_ITS | Encounter Summary ---
:1955 Author Organization [facility] Address [address] [place] [address] Care Team Providers Name Role Phone Viki Elaine Primary Care Provider [phone] Ewa Bynum MD Unavailable Vinay Mercado MD Unavailable Encounter Details Date Type Department Care Team Description 10/27/2021 Ambulatory Pharmacy [facility] [place] [facility] Ambulatory Pharmacy - Main [place] [address] [place] [address] Social History Tobacco Use Types Packs/Day Years [...] Status Functional Status Response Date of Assessment Because of a physical, mental, or emotional condition, Yes 10/27/2021 does this person have difficulty doing errands alone such as visiting a doctor's office or shopping? Cognitive Status Response Date of Assessment Because of a physical, mental, or emotional condition, Yes 10/27/2021 does this person have serious difficulty concentrating, remembering, or making decisions? documented as of this encounter Plan of Treatment Not on filedocumented as of this encounter Visit Diagnoses Not on filedocumented in this encounter Care Teams Electric Installer Relationship Specialty Start Date End Date Viki Elaine PA PCP - General 10/27/[address] [place] [address] [place] [address] Ewa Bynum MD Neurology 11/04/[address] [place] [address], [facility] [address] [place] [address] Vinay Mercado MD 11/04/[address] [place] [address] [place], [place] [id number] documented as of this encounter
--- OUTSIDE RECORDS SUMMARY | 2021-12-04 14:01 | XMS_ITS | Encounter Summary ---
:1955 Author Organization [facility] Address [address] [place] [address] Care Team Providers Name Role Phone Viki Elaine Primary Care Provider [phone] Ewa Bynum MD Unavailable Vinay Mercado MD Unavailable Reason for Referral Consult (See Order Priority) - Authorization Not Required Specialty Diagnoses / Procedures Referred By Contact Refer red To Contact Diagnoses Glioblastoma (HCC) Ewa Bynum MD [address] [place] [address] 2 [place] [address] Referral ID Status Reason Start Expiration Visits Visits Date Date Requested Authorized [id number] Authorization Specialty 1 1 Not Required Services 2 Required Question Answer Reason for Request: Glioblastoma, started bevaci zumab 11/06/2021 needs to be established with a medical o ncologist to resume infusions locally. She is due for her next cycle on 11/20. Comments Patient was discharged from [facility] inpati ent unit to rehab. May need to push out Cycle 2 dependent on discharge from rehab but please prioritize to establish care SEAN. Reason for Visit Reason Onset Date Comments Coordination Of Care 11/13/2021 Encounter Details Date Type Department Care Team Description 11/13/2021 Telephone [facility] Yoli Tripp [facility] Hematology & Oncology - RN Main [address] [address] Social History Tobacco Use Types Packs/Day Years [...] this encounter Miscellaneous Notes Telephone Encounter - Yoli Tripp RN - 11/13/2021 0498 EDT Lorin was started on Bevacizumab while inpatient. She needs to continue and would like to get this closer to home. I called [facility] in [facility] to ensure she could get bevacizumab there in 2-[address] Mercado for radiation but will need to establish a medical oncologist there. They usually are able to get patients scheduled within 10 days of receipt of referral. Referral, facesheet and office notes faxed: (f) [phone]. documented in this encounter Plan of Treatment Scheduled Referrals Name Type Priority Associated Diagnoses Order S chedule AMB CONS/FOLLOW UP Outpatient Referral Urgent Glioblastoma (H CC) Expected: ONCOLOGY 11/15/2021 (Approximate), Expires: 11/13/2022 documented as of this encounter Visit Diagnoses Diagnosis Glioblastoma (HCC) - Primary Malignant neoplasm of brain, unspecified site documented in this encounter Care Teams Wool Batting Worker Relationship Specialty Start Date End Date Viki Elaine PA PCP - General 10/27/[address] [place] [address] [place] [phone] Ewa Bynum MD Neurology 11/04/[address] [place] [address], [address] [place] [address] Vinay Mercado MD 11/04/[address] [place] [address] [address] [place], [place] [id number] documented as of this encounter
--- OUTSIDE RECORDS SUMMARY | 2021-12-04 14:01 | XMS_ITS | Encounter Summary ---
:[address] [facility] Address [address] [place] [address] Care Team Providers Name Role Phone Viki Elaine Primary Care Provider [phone] Ewa Bynum MD Unavailable Vinay Mercado MD Unavailable Reason for Visit Reason Onset Date Comments Prior Auth, Medication 10/27/2021 Temozolomide Encounter Details Date Type Department Care Team Description 10/27/2021 Telephone [facility] Ewa Bynum P rior Auth, Medication Hematology & Oncology MD (Temozolomide) - [id number] [place] [address], [place] [address] (Wo rk) Social History Tobacco Use Types Packs/Day Years Used Date Never Smoker Smokeless Tobacco: Never Used Sex Assigned at Date Recorded Not on file documented as of this encounter Functional Status [...] making decisions? documented as of this encounter Miscellaneous Notes Telephone Encounter - Anu Rust - 10/27/2021 1452 EDT Prior Authorization Not Required Medication: Temozolomide 140mg Daily x42 Insurance Response: Medicare Part B covers this Pharmacy: [facility] Notes: Prior Authorization Submission Process - Urgent Medication: Temozolomide 140mg Daily x42 Insurance: [employer] Insurance Type: Medicare Part D Date PA Request Received: 10/27/2021 PA Submission Date: Pending CMM Wilson: Notes: Submitted by: Anu Jorge Phone: [phone] documented in this encounter Plan of Treatment Not on filedocumented as of this encounter Visit Diagnoses Not on filedocumented in this encounter Care Teams Senior Underwriter Relationship Specialty Start Date End Date Viki Elaine PA PCP - General 10/27/[address] [place] [address] [place] [phone] Ewa Bynum MD Neurology 11/04/[address] [place] [address], [address] [place] [address] Vinay Mercado MD 11/04/[address] [place] [address] [address] [place], [place] [id number] documented as of this encounter
--- OUTSIDE RECORDS SUMMARY | 2021-12-04 14:01 | XMS_ITS | Encounter Summary ---
:[address] [facility] Address [address] [place] [address] Care Team Providers Name Role Phone Viki Elaine Primary Care Provider [phone] Encounter Details Date Type Department Care Team Description 10/27/2021 Orders Only [facility] Gary Dow MD Radiology - Main [place] [address] [place] [address] [place] [address] [phone] Social History Tobacco Use Types Packs/Day Years [...] on filedocumented in this encounter Care Teams Hotel Supplies Salesperson Relationship Specialty Start Date End Date Viki Elaine PA PCP - General 10/27/[address] [place] [address] [place] [phone] documented as of this encounter
--- OUTSIDE RECORDS SUMMARY | 2021-12-04 14:01 | XMS_ITS | Encounter Summary ---
:1955 Author Organization [facility] Address [address] [place] [address] Care Team Providers Name Role Phone Viki Elaine Primary Care Provider [phone] Reason for Visit Reason Onset Date Comments Appointment Related 11/02/2021 Encounter Details Date Type Department Care Team Description 11/02/2021 Telephone [facility] Ewa Bynum A ppointment Related Hematology & Oncology MD - [address] [address] [place], [place] [address] (Wo rk) Social History Tobacco [...] this encounter Miscellaneous Notes Telephone Encounter - Yovanny Londonna - 11/02/2021 1156 EDT Called patient to schedule 4 week FUR; LMOM of appt 11/24 at 10 am documented in this encounter Plan of Treatment Not on filedocumented as of this encounter Visit Diagnoses Not on filedocumented in this encounter Care Teams Photographic Printer Relationship Specialty Start Date End Date Viki Elaine PA PCP - General 10/27/[address] [place] [address] [place] [address] documented as of this encounter
--- OUTSIDE RECORDS SUMMARY | 2021-12-04 14:01 | XMS_ITS | Encounter Summary ---
:1955 Author Organization [facility] Address [address] [place] [address] Care Team Providers Name Role Phone Viki Elaine Primary Care Provider [phone] Ewa Bynum MD Unavailable Vinay Mercado MD Unavailable Encounter Details Date Type Department Care Team Description 11/04/2021 Travel Social History Tobacco Use Types Packs/Day [...] on filedocumented in this encounter Care Teams Proofer Relationship Specialty Start Date End Date Viki Elaine PA PCP - General 10/27/[address] [place] [address] [place] [address] Ewa Bynum MD Neurology 11/04/[address] [place] [address] 2 [place] [phone] Vinay Mercado MD 11/04/[address] [place] [address] [address] [place], [place] [id number] documented as of this encounter
--- OUTSIDE RECORDS SUMMARY | 2021-12-04 14:01 | XMS_ITS | Encounter Summary ---
:1955 Author Organization [facility] Address [address] [place] [address] Care Team Providers Name Role Phone Viki Elaine Primary Care Provider [phone] Ewa Bynum MD Unavailable Viany Mercado MD Unavailable Reason for Visit Reason Onset Date Comments Appointment Related 11/23/2021 Encounter Details Date Type Department Care Team Description 11/23/2021 Telephone [facility] Ewa Bynum A ppointment Related Hematology & Oncology MD - [id number] [place] [address], [place] [address] (Wo rk) Social History Tobacco [...] this encounter Miscellaneous Notes Telephone Encounter - Brenna London - 11/23/2021 1113 EDT At this time, patient will be following up with [facility] [place] states they may be reaching out to coordinate care elephone Encounter - Rani Posadas - 11/23/2021 0744 EDT Patient canceled their 11/24/2021 visit at 10:00 with Ewa Bynum MD via [employer] reminder call. Please call patient to reschedule their appointment. .sigdatetime documented in this encounter Plan of Treatment Not on filedocumented as of this encounter Visit Diagnoses Not on filedocumented in this encounter Care Teams Relocation Commissioner Relationship Specialty Start Date End Date Viki Elaine PA PCP - General 10/27/[address] [place] [address] [place] [address] Ewa Bynum MD Neurology 11/04/[address] [place] [address] 2 [place] [phone] Vinay Mercado MD 11/04/[address] [place] [address] [place] [address] documented as of this encounter
--- OUTSIDE RECORDS SUMMARY | 2021-12-04 14:01 | XMS_ITS | Clinical Summary ---
:1955 Author Organization [facility] Address [address] [place] [address] Care Team Providers Name Role Phone Viki Elaine Primary Care Provider [phone] Ewa Bynum MD Unavailable Vinay Mercado MD Unavailable Allergies No known active allergies Medications Medication Sig Dispensed Refills Start End Date Status Date docusate sodium Take 100 mg 0 Ac tive (COLACE) 100 mg by mouth capsule daily. pantoprazole Take 20 mg by 0 Act shravan (PROTONIX) 20 mg mouth 2 times tablet daily. sodium chloride Take 1 g by 0 Ac tive 1,000 mg soluble mouth daily. tablet calcium carbonate Take 500 mg 0 Active (CALCIUM 500 ORAL) by mouth daily. acetaminophen Take 500 mg 0 Acti ve (TYLENOL) 500 mg by mouth as tablet needed for Pain. diphenhydramine HCl Take by mouth 0 Active (BENADRYL ALLERGY as needed. ORAL) calcium citrate 200 Take 200 mg 0 Active mg (950 mg) by mouth daily. Levothyroxine 100 Take 100 mcg 0 Active mcg capsule by mouth daily. Multivitamins with Take 1 Tablet 0 Active Minerals tablet by mouth tablet daily. ondansetron Take 30 30 Tablet 1 Active (ZOFRAN-ODT) 8 mg minutes 2 disintegrating before tabletIndications: Temodar and Glioblastoma (HCC) then every 8 hours as needed for nausea sulfamethoxazole-tri Take 1 Tablet 10 Tablet 0 Active methoprim by mouth 2 (BACTRIM/CO-TRIMOXAZ three times a OLE DS) 800-160 mg week. per tabletIndications: Glioblastoma (HCC) divalproex (DEPAKOTE Take 3 1 capsule 0 Active SPRINKLE) 125 mg Capsules by 2 capsule mouth every 12 hours. cloBAZam (ONFI) 2.5 Take 1 mL by 1 mL 0 Active mg/mL suspension mouth at 2 suspension bedtime. Daily Max: 2.5 mg dexAMETHasone Take 1.5 120 Tablet 0 Activ e (DECADRON) 4 mg Tablets by 2 tabletIndications: mouth 2 times Glioblastoma (HCC) daily. Take 4mg twice a day at 6am and 6 pm levETIRAcetam Take 2 1 Tablet 0 Active (KEPPRA) 750 mg Tablets by 2 tablet mouth 2 times daily. levETIRAcetam Take 500 mg 0 11/14/19 Disc ontinued (KEPPRA) 500 mg by mouth 2 22 tablet times daily. temozolomide Take 1 21 capsule 0 11/14/19 Discon tinued (TEMODAR) 140 mg capsule by 2 22 capsuleIndications: mouth daily Glioblastoma (HCC) Take zofran 30 minutes before temodar and take temodar 1 hour before radiation. dexAMETHasone Take 1 Tablet 120 Tablet 0 11/14/19 D iscontinued (DECADRON) 4 mg by mouth 2 2 22 (Re order) tabletIndications: times daily. Glioblastoma (HCC) Take 4mg twice a day at 6am and 6 pm Active Problems Problem Noted Date Glioblastoma 11/05/2021 Seizure (HCC-CMS) 11/04/2021 Encounters Date Type Specialty Care Team Description 11/23/2021 Telephone Hematology and Fletcher, Other Oncology MD Ewa 11/23/2021 Telephone Hematology and Fletcher, Appointment R eriberto Oncology MD Ewa 11/20/2021 Telephone Hematology and Fletcher, Appointment Oncology MD Ewa Related; Foll ow-up 11/16/2021 Telephone [facility] [place] [facility]/16/[facility]21 Ambulatory Pharmacy Pharmacy [facility] 11/13/2021 Telephone [facility] Tri[facility] [place] [facility] 11/05/2021 Orders Only Hematology and Fletcher Glioblastoma (HCC) Oncology MD Ewa (Primary Dx) 11/04/2021 - Hospital Encounter Neurology Johnny Vikichandni carter ([facility]) (HCC) (Primary Dx); 11/13/2021 MD Marcy Glioblastoma ([facility] Kahlil Glioblastoma ([facility]) ([facility]) MD Belen Mahajan Elle, MD Sheeser, Jon Michael, MD Taylor, John S Jr., MD 11/04/2021 Travel 11/03/2021 Hospital Encounter 11/02/2021 Telephone Hematology and Fletcher Coordination Of Oncology MD Ewa Care; Medicat ion Management 11/02/2021 Telephone Hematology and Fletcher, Appointment R elated Oncology MD Ewa 10/29/2021 Telephone Hematology and Fletcher, Returning Ulises l Oncology MD Ewa 10/28/2021 Telephone Hematology and Fletcher Medication Oncology MD Ewa Questions (zofran/temodar ) 10/27/2021 Phlebotomy Only Clinical Supervisor Buffing And Pasting, Acc Glioblastom a Laboratory Phlebotomy ([facility]) (HCC) 10/27/2021 Office Visit Hematology and Rony Bynum MD ([facility]) (HC C) (Primary Dx) 10/27/2021 Orders Only Radiology Gary Dow MD 10/27/2021 Orders Only Radiology Gary Dow MD 10/27/2021 Ambulatory Pharmacy Pharmacy [facility] RPH 10/27/2021 Telephone Hematology and Prior Fletcher Auth Oncology MD Ewa Medication (Temozolomide) 10/27/2021 Orders Only Hematology and Yoli Tripp [place]li[place] ([facility]) (HCC) (Primary Dx) 10/27/2021 Orders Only Hematology and Yoli Tripp [place]li[place]la [place] ([facility]) (HCC) (Primary Dx) 10/27/2021 Orders Only Hematology and Yoli Tripp Gli[place]la [place] ([facility]) ([facility] (Primary Dx) 10/27/2021 Orders Only Hematology and Yoli Tripp Gliobla [place] ([facility]) (HCC) (Primary Dx) 10/24/2021 Lab Requisition Clinical Outr Resulting Laboratory Lab, Provider 10/23/2021 Telephone Hematology and Yoli Tripp, Follow- up [place] 10/13/2021 Hospital Encounter 10/09/2021 Hospital Encounter 09/22/2021 Lab Requisition Clinical Outr Resulting Laboratory Lab, Provider 09/22/2021 Lab Requisition Clinical Outr Resulting Laboratory Lab, Provider 09/07/2021 Lab Requisition Clinical Outr Resulting Laboratory Lab, Provider from Last 3 Months Social History Tobacco Use Types Packs/Day Years Used Date Never Smoker Smokeless Tobacco: Never Used Sex Assigned at Date Recorded Not on file COVID-19 Exposure Response Date Recorded In the last 10 days, have you been in contact Unable to asse ss 11/04/2021 0:31 EDT with someone who was confirmed or suspected to have Coronavirus/COVID-19? Last Filed Vital Signs Vital Sign Reading Time Taken Comments Blood Pressure 107/61 11/13/2021 0910 EDT Pulse 75 11/12/2021 1215 EDT Temperature 36.3 ??C (97.4 ??F) 11/13/2021 0910 EDT Respiratory Rate 16 11/13/2021 0910 EDT Oxygen Saturation 98% 11/13/2021 0910 EDT Inhaled Oxygen Concentration - - Weight 68 kg (150 lb) 11/04/2021 0320 EDT Height 165.1 cm (5' 5) 11/04/2021 0320 EDT Body Mass Index 24.96 11/04/2021 0320 EDT Plan of Treatment Health Maintenance Due Date Last Done Comments Hepatitis C Screen 1955 COVID-19 Vaccine (#1) 1955 Fall Risk Screening 10/27/2022 10/27/2021 Procedures Procedure Name Priority Date/Time Associated Comments Diagnosis COMPLETE BLOOD COUNT Routine 11/13/2021 8:26 Resu lts for this EDT procedure are i n the results section. COMPREHENSIVE Routine 11/13/2021 8:25 Results for this METABOLIC PANEL (CMP) EDT proced ure are in the results section. POCT GLUCOSE, Routine 11/12/2021 18:01 Results fo r this INTERFACED EDT procedure are i n the results section. COVID-19 TEST [facility] Today 11/12/2021 10:59 LAB PCR EDT COVID-19 TESTING Routine 11/12/2021 10:59 Results for this EDT procedure are i n the results section. AMMONIA Routine 11/12/2021 8:32 Results for this EDT procedure are i n the results section. COMPREHENSIVE Routine 11/12/2021 8:32 Results for this METABOLIC PANEL (CMP) EDT proced ure are in the results section. COMPLETE BLOOD COUNT Routine 11/12/2021 8:32 Resu lts for this EDT procedure are i n the results section. POCT GLUCOSE, Routine 11/12/2021 7:48 Results for this INTERFACED EDT procedure are i n the results section. POCT GLUCOSE, Routine 11/11/2021 18:07 Results fo r this INTERFACED EDT procedure are i n the results section. POCT GLUCOSE, Routine 11/11/2021 8:14 Results for this INTERFACED EDT procedure are i n the results section. COMPREHENSIVE Routine 11/11/2021 7:48 Results for this METABOLIC PANEL (CMP) EDT proced ure are in the results section. COMPLETE BLOOD COUNT Routine 11/11/2021 7:48 Resu lts for this EDT procedure are i n the results section. POCT GLUCOSE, Routine 11/10/2021 17:32 Results fo r this INTERFACED EDT procedure are i n the results section. URINE ELECTROLYTES Routine 11/10/2021 14:11 Resul ts for this EDT procedure are i n the results section. OSMOLALITY, URINE Routine 11/10/2021 14:11 Result s for this EDT procedure are i n the results section. COMPREHENSIVE Routine 11/10/2021 6:45 Results for this METABOLIC PANEL (CMP) EDT proced ure are in the results section. COMPLETE BLOOD COUNT Routine 11/10/2021 6:45 Resu lts for this EDT procedure are i n the results section. POCT GLUCOSE, Routine 11/09/2021 19:27 Results fo r this INTERFACED EDT procedure are i n the results section. AMMONIA Routine 11/09/2021 15:19 Results for this EDT procedure are i n the results section. CARNITINE, SERUM Routine 11/09/2021 7:29 Results for this EDT procedure are i n the results section. HEPATIC FUNCTION Add-On 11/09/2021 7:29 Results for this PANEL (ALB,ALK EDT procedure are in PHOS,ALT,AST,DBIL,TOT the re sults GEOFF,TOT PROT) section. VALPROIC ACID LEVEL Add-On 11/09/2021 7:29 Resul ts for this EDT procedure are i n the results section. BASIC METABOLIC PANEL Routine 11/09/2021 7:29 Res ults for this (BMP) EDT procedure are i n the results section. COMPLETE BLOOD COUNT Routine 11/09/2021 7:29 Resu lts for this EDT procedure are i n the results section. POCT GLUCOSE, Routine 11/08/2021 7:35 Results for this INTERFACED EDT procedure are i n the results section. BASIC METABOLIC PANEL Routine 11/08/2021 6:51 Res ults for this (BMP) EDT procedure are i n the results section. COMPLETE BLOOD COUNT Routine 11/08/2021 6:51 Resu lts for this EDT procedure are i n the results section. POCT GLUCOSE, Routine 11/07/2021 18:33 Results fo r this INTERFACED EDT procedure are i n the results section. EEG WITH PROLONGED Routine 11/07/2021 16:33 Resul ts for this BEDSIDE VIDEO EDT procedure are in MONITORING the results section. HOLD GREEN TOP Routine 11/07/2021 11:25 Results f or this EDT procedure are i n the results section. VALPROIC ACID LEVEL Routine 11/07/2021 11:06 Resu lts for this EDT procedure are i n the results section. BASIC METABOLIC PANEL Routine 11/07/2021 11:06 Re sults for this (BMP) EDT procedure are i n the results section. COMPLETE BLOOD COUNT Routine 11/07/2021 11:05 Res ults for this EDT procedure are i n the results section. POCT GLUCOSE, Routine 11/07/2021 8:09 Results for this INTERFACED EDT procedure are i n the results section. POCT GLUCOSE, Routine 11/06/2021 19:49 Results fo r this INTERFACED EDT procedure are i n the results section. VALPROIC ACID LEVEL Routine 11/06/2021 13:04 Resu lts for this EDT procedure are i n the results section. POCT GLUCOSE, Routine 11/06/2021 9:11 Results for this INTERFACED EDT procedure are i n the results section. DIFFERENTIAL STAT Add-on 11/06/2021 7:12 Results for this EDT procedure are i n the results section. VALPROIC ACID LEVEL Routine 11/06/2021 7:12 Resul ts for this EDT procedure are i n the results section. BASIC METABOLIC PANEL Routine 11/06/2021 7:12 Res ults for this (BMP) EDT procedure are i n the results section. COMPLETE BLOOD COUNT Routine 11/06/2021 7:12 Resu lts for this EDT procedure are i n the results section. PROTEIN/CREATININE Routine 11/05/2021 15:15 Resul ts for this RATIO, URINE EDT procedure are i n the results section. BASIC METABOLIC PANEL Routine 11/05/2021 7:56 Res ults for this (BMP) EDT procedure are i n the results section. COMPLETE BLOOD COUNT Routine 11/05/2021 7:56 Resu lts for this EDT procedure are i n the results section. EEG WITH PROLONGED Routine 11/04/2021 23:59 Resul ts for this BEDSIDE VIDEO EDT procedure are in MONITORING the results section. MR HEAD W WO CONTRAST STAT 11/04/2021 16:22 Re sults for this EDT procedure are i n the results section. ECG REPORT - SCANNED 11/04/2021 15:32 EDT EKG 12-LEAD STAT 11/04/2021 9:15 Results for this EDT procedure are i n the results section. BASIC METABOLIC PANEL Routine 11/04/2021 7:38 Res ults for this (BMP) EDT procedure are i n the results section. COMPLETE BLOOD COUNT Routine 11/04/2021 7:38 Resu lts for this EDT procedure are i n the results section. POCT URINE DIPSTICK, STAT 11/04/2021 5:13 Resu lts for this CLINITEK EDT procedure are i n the results section. POCT CSN BARCODE STAT 11/04/2021 5:11 URINE DIPSTICK EDT POCT URINE CLINITEK STAT 11/04/2021 5:11 Resul ts for this (DIPSTICK) - DOES NOT EDT proced ure are in REFLEX the results section. HOLD GREEN TOP Routine 11/04/2021 5:05 Results fo r this EDT procedure are i n the results section. COVID-19 TEST [facility] STAT 11/04/2021 5:05 LAB PCR EDT COVID-19 TESTING STAT 11/04/2021 5:05 Results for this EDT procedure are i n the results section. MAGNESIUM STAT 11/04/2021 5:03 Results for this EDT procedure are i n the results section. COMPREHENSIVE STAT 11/04/2021 5:03 Results for this METABOLIC PANEL (CMP) EDT proced ure are in the results section. HN LAB CBC SMEAR Today 11/04/2021 5:02 Results for this REVIEW EDT procedure are i n the results section. PROTIME Routine 11/04/2021 5:02 Results for this EDT procedure are i n the results section. COMPLETE BLOOD COUNT STAT 11/04/2021 5:02 Resu lts for this AND DIFFERENTIAL EDT procedure a re in the results section. CT OUTSIDE IMAGES STAT 11/03/2021 1:41 Results for this NEURO EDT procedure are i n the results section. HEPATITIS B SURFACE Routine 10/27/2021 14:32 Glioblastoma Resu lts for this ANTIGEN EDT (HCC-CMS) (HCC) procedure ar e in the results section. HEPATITIS B SURFACE Routine 10/27/2021 14:32 Glioblastoma Resu lts for this ANTIBODY EDT (HCC-CMS) (HCC) procedure ar e in the results section. HEPATITIS B CORE Routine 10/27/2021 14:32 Glioblastoma Results for this ANTIBODY (TOTAL) EDT (HCC-CMS) (HCC) procedur e are in the results section. COMPREHENSIVE STAT 10/27/2021 14:32 Glioblastoma Results fo r this METABOLIC PANEL (CMP) EDT (HCC-CMS) (HCC) pro cedure are in the results section. COMPLETE BLOOD COUNT Routine 10/27/2021 14:32 Glioblastoma Res ults for this AND DIFFERENTIAL EDT (HCC-CMS) (HCC) procedur e are in the results section. ANTI THYROGLOBULIN Routine 10/24/2021 11:03 Resul ts for this EDT procedure are i n the results section. MR OUTSIDE IMAGES Routine 10/13/2021 15:48 Result s for this NEURO EDT procedure are i n the results section. MR OUTSIDE IMAGES Routine 10/09/2021 15:47 Result s for this NEURO EDT procedure are i n the results section. HOLD SST Today 09/22/2021 9:58 Results for this EDT procedure are i n the results section. AST Routine 09/22/2021 9:58 Results for this EDT procedure are i n the results section. SYPHILIS SEROLOGY Today 09/22/2021 9:58 Results for this EDT procedure are i n the results section. LYME AB Today 09/22/2021 9:58 Results for this EDT procedure are i n the results section. PTH INTACT Routine 09/07/2021 12:58 Results for this EDT procedure are i n the results section. VITAMIN D (25,[place]) Routine 09/07/2021 12:58 Result s for this EDT procedure are i n the results section. ANTI THYROGLOBULIN Routine 09/07/2021 12:58 Resul ts for this EDT procedure are i n the results section. from Last 3 Months Results (ABNORMAL) COMPLETE BLOOD COUNT (11/13/2021 8:26 EDT)Only the most recent of10 resultswithin the time period is included. Pathologist Sig nature WBC 6.00 4.00 - 12.40 K/cmm [facility] RBC 4.16 3.86 - 5.04 M/cmm [facility] Hemoglobin 13.8 11.6 - 15.2 gm/dL [facility] HCT 40.0 34.9 - 44.4 % [facility] MCV 96 81 - 98 fl [facility] MCH 33.2 26.7 - 33.3 pg [facility] MCHC 34.5 32.1 - 35.9 gm/dL [facility] RDW-CV 13.7 <14.7 % [facility] RDW-SD 48.5 <50.4 fl [facility] PLT 98 (L) 141 - 377 K/cmm [facility] MPV 10.3 9.5 - 12.7 fl [facility] Specimen Blood - Venous blood (substance) Performing Organization Address City/State/ZIP Code Phon e Number [facility] [address] [place] [address] SERVICES (ABNORMAL) COMPREHENSIVE METABOLIC PANEL (CMP) (11/13/2021 8:25 EDT)Only the most recent of6 resultswithin the time period is included. Sodium 136 136 - 145 [facility] mmol/L LABORATORY SERVICES Potassium 4.0 3.5 - 5.0 [facility] mmol/L [facility] Chloride 99 96 - 110 mmol/L [facility] CO2 Total 26 22 - 32 mmol/L [facility] Glucose 81 70 - 100 mg/dL [facility] BUN 27 (H) 10 - 26 mg/dL [facility] Creatinine 0.44 (L) 0.52 - 1.04 [facility] mg/dL LABORATORY SERVICES eGFR 105 >60 [facility] mL/min/1.73m2 [facility]OR[facility]ORY SERVICES Total Protein 5.1 (L) 6.3 - 8.2 g/dL [facility] Albumin 3.1 (L) 3.4 - 4.9 g/dL [facility] Alkaline Phosphatase 50 38 - 126 U/L [facility] AST 21 15 - 46 U/L [facility] ALT 34 <35 U/L [facility] Bilirubin, Total 0.7 <1.4 mg/dL [facility] Calcium 8.3 (L) 8.5 - 10.5 [facility] mg/dL LABORATORY SERVICES Albumin/Globulin 1.6 1.0 - 2.5 [facility] Ratio LABORATORY SERVICES Anion Gap 11 5 - 14 [facility] Specimen Blood - Venous blood (substance) Performing Organization Address City/[facility]/ZIP Code Phon e Number [facility] [address] [place] [address] SERVICES (ABNORMAL) POCT GLUCOSE, INTERFACED (11/12/2021 18:01 EDT)Only the most recent of11 resultswithin the time period is included. Glucose, POC 140 (H) 70 - 100 [facility] mg/dL LABORATORY SERVICES HN LAB POC COMMENT Test Performed by [facility] (GLUCOSE) Nursing Services LABORATORY SERVICES Specimen Blood - Capillary blood (substance) Performing Organization Address City/[facility]/ZIP Code Phon e Number [facility] [address] [place] [address] SERVICES COVID-19 TEST [facility] LAB PCR (11/12/2021 10:59 EDT)Only the most recent of2 resultswithin the time period is included. Specimen Swab - Entire nasopharynx (body structur e) Performing Organization Address [facility] Phon e Number [facility] [address] [place] [address] SERVICES COVID-19 TESTING (11/12/2021 10:59 EDT)Only the most recent of2 resultswithin the time period is included. COVID-19 rt-PCR Negative Negative [facility] Result LABORATORY SERVICES Performing Lab Gene[facility]pert [facility] Lab LABORATORY SERVICES Specimen Swab - Entire nasopharynx (body structur e) Performing Organization Address [facility] e Number [facility] [address] [place] [address] SERVICES AMMONIA (11/12/2021 8:32 EDT)Only the most recent of2 resultswithin the time period is included. Pathologist Sig nature Ammonia <9 <34 umol/L [facility] Y SERVICES Specimen Blood - Venous blood (substance) Performing Organization Address [facility] Phon e Number [facility] [address] [place] [address] SERVICES URINE ELECTROLYTES (11/10/2021 14:11 EDT) Sodium, Urine 46.7 See Note [facility] Comment: mmol/L [place] NOTE: SERVICES Reference range has not been established for sodium concentration in random urine specimens. Potassium, Urine 24.3 See Note [facility] Comment: mmol/L [place] NOTE: SERVICES Reference range has not been established for potassium concentration in random urine specimens. Chloride, Urine 57 See Note [facility] Comment: mmol/L [place] [facility] NOTE: SERVICES Reference range has not been established for chloride concentration in random urine specimens. Specimen Urine - Urine specimen collection, clean catch (procedure) Performing Organization Address [facility] Phon e Number [facility] [address] [place] [address] SERVICES OSMOLALITY, URINE (11/10/2021 14:11 EDT) Pathologist Sig nature Osmolality, Urine 448 150-1,150 mOsm/kg [facility] Specimen Urine - Urine specimen collection, clean catch (procedure) Performing Organization Address [facility] Phon e Number [facility] [address] [place] [address] SERVICES CARNITINE, SERUM (11/09/2021 7:29 EDT) Total 53 34 - 78 [facility] nmol/mL LABORATORIES Free (FC) 44 25 - 54 [facility] nmol/mL LABORATORIES Acylcarnitine (AC) 9 5 - 30 [facility] nmol/mL LABORATORIES AC/FC Ratio 0.2 0.1 - 0.8 [facility] Interpretation SEE NOTE [facility] Comment: LABORATORIES RESULT: In this sample, the carnitine profile was norm al. ADDITIONAL INFORMATION ------ This test was developed and its performance characteri stics determined by [facility] in a manner consistent with CLIA requirements. This test has not been cleared or approv ed by the [place]. Food and Drug Administration. Test Performed by: [address] [address] [employer] Buyer: Dez Pratt M.D. Ph.D.; CLIA# [id number] Specimen Blood - Venous blood (substance) Performing Organization Address [facility] Phon e Number [facility] [address] [place] [id number] VALPROIC ACID LEVEL (11/09/2021 7:29 EDT)Only the most recent of4 resultswithin the time period is included. Pathologist [facility] nature Valproic Acid 89 50 - 100 ug/mL [facility] Specimen Blood - Venous blood (substance) Performing Organization Address City/[facility] Phon e Number [facility] [address] [place] [address] SERVICES (ABNORMAL) HEPATIC FUNCTION PANEL (ALB,ALK PHOS,ALT,AST,DBIL,TOT GEOFF,TOT PROT) (11/09/2021 7:29 EDT) Total Protein 5.2 (L) 6.3 - 8.2 g/dL [facility] Albumin 3.1 (L) 3.4 - 4.9 g/dL [facility] Bilirubin, Total 0.8 <1.4 mg/dL [facility] Conjugated Bilirubin 0.0 <=0.3 mg/dL [facility] Unconjugated Bilirubin 0.7 <=1.1 mg/dL [facility] Alkaline Phosphatase 42 38 - 126 U/L [facility] ALT 24 <35 U/L [facility] AST 21 15 - 46 U/L [facility] Calculated Total 0.7 <1.4 mg/dL [facility] Bilirubin LABORATORY SERVICES Specimen Blood - Venous blood (substance) Performing Organization Address [facility] Phon e Number [facility] [address] [place] [address] SERVICES (ABNORMAL) BASIC METABOLIC PANEL (BMP) (11/09/2021 7:29 EDT)Only the most recent of6 resultswithin the time period is included. Pathologist Sig nature Sodium 131 (L) 136 - 145 mmol/L [facility] Potassium 4.4 3.5 - 5.0 mmol/L [facility] Chloride 96 96 - 110 mmol/L [facility] CO2 Total 28 22 - 32 mmol/L [facility] Anion Gap 7 5 - 14 [facility] LABORATORY SERVICES Glucose 94 70 - 100 mg/dL [facility] SERVICES Calcium 8.2 (L) 8.5 - 10.5 mg/dL [facility] BUN 24 10 - 26 mg/dL [facility] Creatinine 0.47 (L) 0.52 - 1.04 mg/dL [facility] SERVICES eGFR 104 >60 mL/min/1.73m2 [facility] SERVICES Specimen Blood - Venous blood (substance) Performing Organization Address [facility] Phon e Number [facility]OR[facility] [address] [place] [address] SERVICES EEG WITH PROLONGED BEDSIDE VIDEO MONITORING (11/07/2021 16:33 EDT) Narrative [facility] POINT OF CARE - 11/07/2021 16:33 E Aylin Barnes MD ? 11/07/2021 16:38 [facility] ??Name: Lizette Cardona Clinical Neurophysiology Laboratory ??MR N: [id number] [address] [facility] ? : 1955 [place], [place] ?Date: 022 Video-Electroencephalographic Monitoring Report Referring Physician: Dr. Glover Clinical Indication: ??This is a 66 y.o. ??female??with a PMHx significant for recently diagnosed gliob lastoma and possible thyroid dysfunction [facility] a [facility] (described a s right arm and leg shaking with preserved awareness). Medications: Current Facility-Administered Medication s Medication Route Frequency ? ? acetaminophen (TYLENOL) tablet 500 mg oral Q4H PRN ? ? cloBAZam (ONFI) tablet 5 mg oral BID ? ? dexAMETHasone (DECADRON) tablet 8 mg oral BID ? ? diphenhydrAMINE (BENADRYL) injection 50 mg intravenous PRN ? ? enoxaparin (LOVENOX) injection 40 mg subcutaneous DAILY ? ? EPINEPHrine (ADRENALIN) injection 0.3 mg intramuscular PRN ? ? levETIRAcetam (KEPPRA) 1,500 mg in sodium chloride (NS) 0.9 % 100 mL IVPB intravenous Q12H ? ? levothyroxine (SYNTHROID) tablet 100 mcg oral DAILY BEFORE BREAKFAST ? ? lidocaine (PF) 10 mg/mL (1 %) injection 2 mg intradermal PRN ? ? lidocaine (PF) 10 mg/mL (1 %) injection 2 mL intradermal PRN ? ? methylPREDNISolone sod suc(PF) (SOLU-MEDROL) injection 100 mg intravenous PRN ? ? ondansetron (ZOFRAN-ODT) disintegrating tablet 8 mg oral Q8H PRN ? ? pantoprazole (PROTONIX) tablet 20 mg oral BID ? ? polyethylene glycol 3350 (MIRALAX) packet 17 g oral Daily PRN ? ? senna (SENOKOT) tablet 2 Tablet oral QHS ? ? sodium chloride 0.9 % (flush) flush 10 mL intravenous PRN ? ? sodium chloride 0.9 % (flush) flush 10 mL intercatheter PRN ? ? sodium chloride 0.9 % (flush) flush 20 mL intercatheter PRN ? ? valproic acid (DEPAKENE) capsule 1,000 mg oral BID Technical Description: Continuous digital video-digital electro encephalographic monitoring is performed. Silver/silver c hloride EEG electrodes are placed according to the [facility]20 system as well as anterior temporal electrodes, a CPz ynes rding reference and FCz ground contract. An ECG channel is also monitored. Caregivers are encouraged to maintain an event diary an d to press and Event Button in the event of a seizure-like sp ell (Target Event). The entire EEG dataset is reviewed by the at tending physician. No pain assessment for this procedure is ne cessary. Findings: The monitoring period begins 11/07/2021 a t 07:33 and ends at 16:05. The background is continuous, reactive, mostly symmetric, and moderately organized with an anterior po sterior gradient, although a previously noted posterior do minant rhythm is not well maintained. There is frequent diffuse po lymophic slowing, lasting 1-5 seconds, consisting of theta-delta f requencies intermixed in the background. There is further intermittent polymorphi c theta-delta slowing seen over the left hemisphere near didi nuously, most prominent in the left parasagittal chain, embedded within a breach rhythm from patient's known biopsy site, with h igher amplitudes noted and excess beta frequencies. Electrographic seizures are no longer se en on EEG. There are numerous clinical push button events whi le the patient is awake. These clinical push button events are no dipti for right lower extremity raising and stiffening, which is very brief but likely represent focal seizures. There are appr oximately 25 clinical push button events. Single lead EKG is not interpretable due to artifact. Impression: This is an abnormal EEG due to moderate diffuse slowing, further embedded slowing within the left hemispheric breach rhythm (seen within the context o f prior neurosurgical intervention), most prominent in the par asaggital leads. There are frequent likely focal clinical seizu res without ictal correlate for very brief right lower ext remity stiffening/raising when seen on video, which likely represe nt focal motor seizures not captured on EEG. This is the concluding segment of the re cording. Aylin Leblanc MD ABPN Certified, Neurology and Epilepsy 16:34 ??11/07/2021 Performing Organization Address City/State/ZIP Code Phon e Number [facility] POINT OF CARE HOLD GREEN TOP (11/07/2021 11:25 EDT)Only the most recent of2 resultswithin the time period is included. Pathologist Sig nature Hold Hold [facility] LABORATOR Y SERVICES Specimen Blood - Venous blood (substance) Performing Organization Address City/[facility]/ZIP Code Phon e Number [facility]OR[facility] [address] [place] [address] SERVICES (ABNORMAL) DIFFERENTIAL (11/06/2021 7:12 EDT) Neutrophils 92.2 % [facility] SERVICES Lymphocytes 2.8 % [facility] SERVICES Monocytes 3.6 % [facility] SERVICES Eosinophils 0.0 % [facility] SERVICES Basophils 0.1 % [facility] SERVICES Immature Grans 1.3 % [facility] SERVICES Absolute Neutrophils 6.90 2.20 - 8.85 [facility] LABORATORY SERVICES Absolute Lymphocytes 0.21 (L) 1.09 - 3.30 [facility] LABORATORY SERVICES Absolute Monocytes 0.27 0.10 - 0.80 [facility] LABORATORY SERVICES Absolute Eosinophils 0.00 (L) 0.03 - 0.61 [facility] LABORATORY SERVICES Absolute Basophils 0.01 0.01 - 0.11 [facility] LABORATORY SERVICES Absolute Immature 0.10 (H) 0.00 - 0.06 [facility] LABORATORY SERVICES Type of Differential: [facility] LABORATORY SERVICES Specimen Blood - Venous blood (substance) Performing Organization Address [facility] Phon e Number [facility] [address] [place] [address] SERVICES PROTEIN/CREATININE RATIO, URINE (11/05/2021 15:15 EDT) Total Protein, 11Comment: See Note mg/dL [facility] Urine Reference range CENTER LABORATORY not established. SERVICES Creatinine, Urine 66.5Comment: See Note mg/dL [facility] Reference range CENTER LABORATORY not established. SERVICES UPRO mg/mg Cr, Ur 0.17 <0.18 mg/mg [facility] Creatinine [place] [facility] SERVICES Specimen Urine - Urine (substance) Performing Organization Address [facility]/ZIP Code Phon e Number [facility] [address] [place] [address] SERVICES EEG WITH PROLONGED BEDSIDE VIDEO MONITORING (11/04/2021 23:59 EDT) Narrative [facility] POINT OF CARE - 11/04/2021 23:59 E Aylin Barnes MD ? 11/05/2021 11:08 [facility] ??Name: Lizette Cardona Clinical Neurophysiology Laboratory ??MR N: [id number] [address] [place] [address] Liv ? : 1955 [place], [place] ?Date: 022 Video-Electroencephalographic Monitoring Report Referring Physician: Dr. Arzate Clinical Indication: ??This is a 66 y.o. ??female??with a PMHx significant for recently diagnosed gliob lastoma and possible thyroid dysfunction [facility] a [facility] (described a s right arm and leg shaking with preserved awareness). Medications: Current Facility-Administered Medication s Medication Route Frequency ? ? acetaminophen (TYLENOL) tablet 500 mg oral Q4H PRN ? ? bevacizumab-awwb (MVASI) 1,020 mg in sodium chloride (NS) 0.9 % 100 mL infusion intravenous Now ? ? dexAMETHasone (DECADRON) tablet 8 mg oral BID ? ? enoxaparin (LOVENOX) injection 40 mg subcutaneous DAILY ? ? levETIRAcetam (KEPPRA) tablet 1,000 mg oral BID ? ? levothyroxine (SYNTHROID) tablet 100 mcg oral DAILY BEFORE BREAKFAST ? ? lidocaine (PF) 10 mg/mL (1 %) injection 2 mg intradermal PRN ? ? NONFORMULARY MEDICATION 140 mg oral DAILY ? ? ondansetron (ZOFRAN-ODT) disintegrating tablet 8 mg oral Q8H PRN ? ? pantoprazole (PROTONIX) tablet 20 mg oral BID ? ? polyethylene glycol 3350 (MIRALAX) packet 17 g oral Daily PRN ? ? senna (SENOKOT) tablet 2 Tablet oral QHS ? ? sulfamethoxazole-trimethoprim (BACTRIM/CO-TRIMOXAZOLE DS) 800-160 mg per tablet 1 Tablet oral Once per day on Tue Current Outpatient Medications Medication ? ? acetaminophen (TYLENOL) 500 mg tablet ? ? calcium carbonate (CALCIUM 500 ORAL) ? ? calcium citrate 200 mg (950 mg) ? ? dexAMETHasone (DECADRON) 4 mg tablet ? ? diphenhydramine HCl (BENADRYL ALLERGY ORAL) ? ? docusate sodium (COLACE) 100 mg capsule ? ? levETIRAcetam (KEPPRA) 500 mg tablet ? ? Levothyroxine 100 mcg capsule ? ? Multivitamins with Minerals tablet tablet ? ? ondansetron (ZOFRAN-ODT) 8 mg disintegrating tablet ? ? pantoprazole (PROTONIX) 20 mg tablet ? ? sodium chloride 1,000 mg soluble tablet ? ? sulfamethoxazole-trimethoprim (BACTRIM/CO-TRIMOXAZOLE DS) 800-160 mg per tablet ? ? temozolomide (TEMODAR) 140 mg capsule Technical Description: Continuous digital video-digital electro encephalographic monitoring is performed. Silver/silver c hloride EEG electrodes are placed according to the [facility] l 10-20 system as well as anterior temporal electrodes, a CPz ynes rding reference and FCz ground contract. An ECG channel is also monitored. Caregivers are encouraged to maintain an event diary an d to press and Event Button in the event of a seizure-like sp ell (Target Event). The entire EEG dataset is reviewed by the at tending physician. No pain assessment for this procedure is ne cessary. Findings: The monitoring period begins 11/04/21 at 06:40 and ends 11/05/2021 at 07:00. The background is continuous, reactive, mostly symmetric, and well organized with an anterior posterio r gradient and a posterior dominant rhythm best seen over the right hemisphere of 8-9 Hz. ?? There is mild intermittent polymorphic s lowing seen over the left hemisphere near continuously, most promi nent in the left parasagittal chain, embedded within a br each rhythm from patient's known biopsy site, with higher amplitudes noted. There are no interictal discharges, seiz ures or intentional clinical push button events noted. (Nume alla unintentional button presses are seen.) Stage N2 sleep is represented by vertex waves and sleep spindles. Deeper stages of sleep are not seen. Single lead EKG is not interpretable due to artifact. Impression: This is a mildly abnormal EE G due to presence of embedded slowing within the left hemisph tobin breach rhythm (seen within the context of prior neurosurgica l intervention), most prominent in the parasaggital leads. Clinical Correlation: Focal slowing robby cates mild focal cerebrocortical dysfunction within this region and can be seen in the context of an underlying structural abnormality, postictal slowing, among other considerations. Aylin Leblanc MD ABPN Certified, Neurology and Epilepsy 10:59 ??11/05/2021 Performing Organization Address City/State/ZIP Code Phon e Number [facility] POINT OF CARE MR HEAD W WO CONTRAST (11/04/2021 16:22 EDT) Anatomical Region Laterality Modality Head Magnetic Resonance Specimen Impressions [facility] - 11/04/2021 17:21 EDT 1. While the size of the large heterogeneously enhancing mass centered in the splenium and left parie yahaira lobe with areas of internal hemorrha ge has not significantly changed in size, there is a decreased amount of associated edema. 2. Interval increase in size of cortical expansion with T2/FLAIR hyperintensity and enhancement involving the right cingulate gyrus measuring up to 2.1 cm, concerning for an enlarging/new site of multifocal disease. Narrative [facility] - 11/04/2021 17:21 EDT EXAM: MRI HEAD WO/W CONTRAST HISTORY: GBM, recently started chemorads , presenting w/ seizure; Brain/[employer] neoplasm, monitor TECHNIQUE: MRI head without and with int ravenous gadolinium contrast. MR perfusion with intravenous gadolinium contrast; images were reviewed on dedicated software and selected images were sent to the PACS. Structured report code: [id number] COMPARISON: CTA 11/03/2021; MRI 10/09/2021 FINDINGS: SURGICAL CHANGES: Expected postsurgical changes from prior left parietal biopsy. ENHANCEMENT: There is an enlarging area of cortical expansion with T2/FLAIR hyperintensity and associated enhancement involving the right cingulate gyrus measuring approximately 2.1 x 0.9 x 1.0 cm AP X TRV X CC (series 701, image #171 and ser ies 901, image #10). Relatively unchanged size of the heterogeneously enhancing mass centered in the splenium of the corpus callosum measuring approximately 4.5 x 6.3 x 3.5 cm. Areas of intrinsic T1 hyp erintensity and susceptibility artifact are consistent with internal hemorrhage, similar to prior. The portion of the mass in the left parietal lobe is likewise s imilar in size minus the tissue excised for biopsy. T2-FLAIR: T2/flair hyperintensity in the adjacent white matter has decreased compared to prior. Periventricular T2/FLAIR hyperintensity about the occipital horns of lateral ventricles is likewise improved. DIFFUSION: Diffusion restriction associa dipti with the mass so which corresponds to areas of enhancement consistent with tumor and others correspond to areas of hemorrhage. PERFUSION: Susceptibility artifact limit s reliability of the perfusion imaging, but there do appear to be areas of significantly increased relative cerebral blood volume corresponding to areas of enhancement. ADDITIONAL FINDINGS: PARENCHYMA: No evidence of infarction. EXTRA-AXIAL SPACES: No extra-axial collection. No extra-axia l mass. VENTRICLES: Unchanged ventricular caliber. VESSELS: Presumed slow flow in the left transvers e and sigmoid sinuses and internal jugular vein. BONES: Postsurgical changes, otherwise unremark able. ORBITS: No significant abnormality. PARANASAL SINUSES/MASTOID AIR CELLS: Predominantly clear. EXTRACRANIAL SOFT TISSUES: Unremarkable. Procedure Note Abdirahman Loving MD - 11/04/2021 EXAM: MRI HEAD WO/W CONTRAST HISTORY: GBM, recently started chemorads , presenting w/ seizure; Brain/[employer] neoplasm, monitor TECHNIQUE: MRI head without and with int ravenous gadolinium contrast. MR perfusion with intravenous gadolinium contrast; images were reviewed on dedicated software and selected images were sent to the PACS. Structured report code: [id number] COMPARISON: CTA 11/03/2021; MRI 10/09/2021 FINDINGS: SURGICAL CHANGES: Expected postsurgical changes from prior left parietal biopsy. ENHANCEMENT: There is an enlarging area of cortical expansion with T2/FLAIR hyperintensity and associated enhancement involving the right cingulate gyrus measuring approximately 2.1 x 0.9 x 1.0 cm AP X TRV X CC (series 701, image #171 and series 901, image #10). Relatively unchanged size of the heterogeneously enhancing mass centered in the splenium of the corpus callosum measuring approximately 4.5 x 6.3 x 3.5 cm. Areas of intrinsic T1 hyperintensity and suscepti bility artifact are consistent with internal hemorrhage, similar to prior. The portion of the mass in the left parietal lobe is likewise similar in size minus the tissue excised for biopsy. T2-FLAIR: T2/flair hyperintensity in the adjacent white matter has decreased compared to prior. Periventricular T2/FLAIR hyperintensity about the occipital horns of lateral ventricles is likewise improved. DIFFUSION: Diffusion restriction associa dipti with the mass so which corresponds to areas of enhancement consistent with tumor and others correspond to areas of hemorrhage. PERFUSION: Susceptibility artifact limit s reliability of the perfusion imaging, but there do appear to be areas of significantly increased relative cerebral blood volume corresponding to areas of enhancement. ADDITIONAL FINDINGS: PARENCHYMA: No evidence of infarction. EXTRA-AXIAL SPACES: No extra-axial collection. No extra-axia l mass. VENTRICLES: Unchanged ventricular caliber. VESSELS: Presumed slow flow in the left transvers e and sigmoid sinuses and internal jugular vein. BONES: Postsurgical changes, otherwise unremark able. ORBITS: No significant abnormality. PARANASAL SINUSES/MASTOID AIR CELLS: Predominantly clear. EXTRACRANIAL SOFT TISSUES: Unremarkable. IMPRESSION 1. While the size of the large heterogen eously enhancing mass centered in the splenium and left parietal lobe with areas of internal hemorrhage has not significantly changed in size, there is a decreased amount of associated edema. 2. Interval increase in size of cortical expansion with T2/FLAIR hyperintensity and enhancement involving the right cingulate gyrus measuring up to 2.1 cm, concerning for an enlarging/new site of multifocal disease. Performing Organization Address City/State/ZIP Code Phon e Number [facility] ECG REPORT - SCANNED (11/04/2021 15:32 EDT) Specimen Narrative This result has an attachment that is no t available. EKG 12-LEAD (11/04/2021 9:15 EDT) Specimen Narrative [facility] EKG - 11/04/2021 15:2 8 EDT ?[facility] Emergency ? Test Date: ?2021-11-04 Pat Name: ? LIZETTE CARDONA ? Department: ?? ED ? Room: ? AC02 Gender: ? Female ? Pathology Secretary: ?? [id number] : ?1955 ? Requested By: EMMANUELLE JOHNS Order Number: [id number] ? Reading : ?? DARIUS CHAN MD PhD ? Measurements Intervals ?[place] ? Rate: ? 54 ? P: ?59 [place]: ? 133 ?QRS: ?28 QRSD: ? 95 ? T: ?22 QT: ? 418 ? QTc: ?397 ? Interpretive Statements SINUS BRADYCARDIA No previous ECG available for comparison I reviewed the tracing and have either a greed or edited the findings in this report. Electronically Signed On 11-05-19 15:28:52 EDT by DARIUS CHAN MD PhD. Procedure Note Darius Chan MD PhD - [facility] Cent[facility] r Emergency Test Date: 2021-11-04 Pat Name: LIZETTE CARDONA Department: ED Room: AC02 Gender: Female Pathology Secretary: [id number] : 1955 Requested By: [place] JOHNS Order Number: [id number] Reading MD: Shady CHAN MD PhD Measurements Intervals [place] Rate: 54 P: 59 [place]: 133 QRS: 28 QRSD: 95 T: 22 QT: 418 QTc: 397 Interpretive Statements SINUS BRADYCARDIA No previous ECG available for comparison I reviewed the tracing and have either a greed or edited the findings in this report. Electronically Signed On 11-05-19 15:28:52 EDT by DARIUS CHAN MD PhD. Performing Organization Address [facility] Code Phon e Number [facility] EKG POCT URINE DIPSTICK, [facility] (11/04/2021 5:13 EDT) Color, UA Yellow Yellow [facility] LABORATORY SERVICES Clarity, UA Clear Clear [facility] SERVICES Glucose, UA Negative Negative [facility] Bilirubin, UA Negative Negative [facility] SERVICES Ketones, UA Negative Negative [facility] SERVICES Specific [place], 1.025 1.001 - 1.035 [facility] LABORATORY SERVICES Blood, UA Negative Negative [facility] SERVICES pH, UA 8.0 4.6 - 8.0 [facility] SERVICES Protein, UA Negative Negative [facility] SERVICES Urobilinogen, UA 1.0 0.2 - 1.0 mg/dL [facility] SERVICES Nitrite, UA Negative Negative [facility] SERVICES Leuk Esterase Negative Negative [facility] SERVICES HN LAB COMMENT Test performed at [facility] ([facility], [place]) Emergency CENTER LABORATORY Department SERVICES Specimen Urine - Urine specimen collection, clean catch (procedure) Performing Organization Address [facility] Phon e Number [facility] [address] [place] [address] SERVICES POCT CSN BARCODE URINE DIPSTICK (11/04/2021 5:11 EDT) Specimen Urine - Urine specimen collection, clean catch (procedure) Performing Organization Address [facility] Phon e Number [facility] [address] [place] [address] SERVICES MAGNESIUM (11/04/2021 5:03 EDT) Pathologist Sig nature Magnesium 2.0 1.7 - 2.8 mg/dL [facility] LABORA TORY SERVICES Specimen Blood - Venous blood (substance) Performing Organization Address City/[facility]/ZIP Code Phon e Number [facility] [address] [place] [address] SERVICES HN LAB CBC SMEAR REVIEW (11/04/2021 5:02 EDT) Differential Comment Slide was examined [facility] by a technologist to [place] [facility] verify the WBC SERVICES and/or platelet count. Specimen Blood - Venous blood (substance) Performing Organization Address [facility]/ZIP [facility] Phon e Number [facility] [address] [place] [phone] SERVICES (ABNORMAL) PROTIME (11/04/2021 5:02 EDT) Pathologist Sig nature I.N.R. 1.3 (H) 0.9 - 1.1 Ratio [facility] SERVICES Pro Time 15.3 (H) 9.7 - 12.8 secs [facility] SERVICES Specimen Blood - Venous blood (substance) Narrative [facility] SERVICES - 11/04/2021 5:25 EDT Moderate Intensity Coumadin INR = 2.0-3.0 Adjustments in anticoagulant therapy dos e should be based on the INR and NOT on the Protime. Performing Organization Address [facility]/ZIP [facility] Phon e Number [facility] [address] [place] [address] SERVICES (ABNORMAL) COMPLETE BLOOD COUNT AND DIFFERENTIAL (11/04/2021 5:02 EDT)Only the most recent of2 resultswithin the time period is included. WBC 7.15 4.00 - 12.40 [facility] K/[facility] LABORATORY SERVICES RBC 3.76 (L) 3.86 - 5.04 [facility] M/[facility] LABORATORY SERVICES Hemoglobin 12.5 11.6 - 15.2 [facility] gm/dL LABORATORY SERVICES HCT 36.1 34.9 - 44.4 % [facility] LABORATORY SERVICES MCV 96 81 - 98 fl [facility] SERVICES MCH 33.2 26.7 - 33.3 pg [facility] LABORATORY SERVICES MCHC 34.6 32.1 - 35.9 [facility] gm/dL LABORATORY SERVICES RDW-CV 14.4 <14.7 % [facility] LABORATORY SERVICES RDW-SD 50.2 <50.4 fl [facility] LABORATORY SERVICES PLT 82 (L) 141 - 377 [facility] MPV 9.6 9.5 - 12.7 fl [facility] SERVICES Neutrophils 90.7 % [facility] SERVICES Lymphocytes 3.8 % [facility] SERVICES Monocytes 4.8 % [facility] SERVICES Eosinophils 0.0 % [facility] SERVICES Basophils 0.1 % [facility] SERVICES Immature Grans 0.6 % [facility] SERVICES Absolute Neutrophils 6.49 2.20 - 8.85 [facility] LABORATORY SERVICES Absolute Lymphocytes 0.27 (L) 1.09 - 3.30 [facility] LABORATORY SERVICES Absolute Monocytes 0.34 0.10 - 0.80 [facility] LABORATORY SERVICES Absolute Eosinophils 0.00 (L) 0.03 - 0.61 [facility] LABORATORY SERVICES Absolute Basophils 0.01 0.01 - 0.11 [facility] LABORATORY SERVICES Absolute Immature 0.04 0.00 - 0.06 [facility] Grans [facility] LABORATORY SERVICES Type of Differential: Auto [facility] SERVICES Specimen Blood - Venous blood (substance) Performing Organization Address City/[facility]/ZIP Code Phon e Number [facility] [address] [place] [address] OUT[address]IDE IMAGES NEURO (11/03/2021 1:41 EDT) Specimen Narrative 11/04/2021 1:42 EDT This is a non-reportable exam. HEPATITIS B CORE ANTIBODY (TOTAL) (10/27/2021 14:32 EDT) Pathologist Sig nature Hepatitis B Core Ab, Negative Negative [facility] Total LABORATORY SERVICES Specimen Blood - Venous blood (substance) Performing Organization Address City/[facility]/ZIP Code Phon e Number [facility] [address] [place] [address] SERVICES HEPATITIS B SURFACE ANTIBODY (10/27/2021 14:32 EDT) Hep B Surface Ab, <3.1 See Note [facility] Quantitative Comment: mIU/mL [facility] Reference Range for Hep B Surface Ab, Quant: SERVICES Positive: >= 10.0 mIU/mL Negative: ??< 10.0 mIU/mL Patient is presumed to not be immune to infection with Hepatitis B Virus. Hep B Surface Ab, Negative See Note [facility] Qualitative Comment: [facility] Reference Range for Hep B Surface Ab, Qual: SERVICES Unvaccinated: ??Negative Vaccinated: ??Positive Specimen Blood - Venous blood (substance) Performing Organization Address [facility] Phon e Number [facility] [address] [place] [address] SERVICES HEPATITIS B SURFACE ANTIGEN (10/27/2021 14:32 EDT) Pathologist Sig nature Hep B Surface Ag Negative Negative [facility] SERVICES Specimen Blood - Venous blood (substance) Performing Organization Address [facility] Phon e Number [facility] [address] [place] [address] SERVICES ANTI THYROGLOBULIN (10/24/2021 11:03 EDT)Only the most recent of2 resultswithin the time period is included. Pathologist Sig nature Anti-Thyroglobulin 26 <=60 U/mL [facility] SERVICES Specimen Blood - Venous blood (substance) Performing Organization Address [facility] Phon e Number [facility] [address] [place] [address] SERVICES MR OUTSIDE IMAGES NEURO (10/13/2021 15:48 EDT) Specimen Narrative 10/27/2021 15:49 EDT This is a non-reportable exam. MR OUTSIDE IMAGES NEURO (10/09/2021 15:47 EDT) Specimen Narrative 10/27/2021 15:48 EDT This is a non-reportable exam. HOLD SST (09/22/2021 9:58 EDT) Pathologist Sig nature Hold Hold [facility] Y SERVICES Specimen Blood - Venous blood (substance) Performing Organization Address [facility] Phon e Number [facility] [address] [place] [address] SERVICES SYPHILIS SEROLOGY (09/22/2021 9:58 EDT) Pathologist Sig nature Syphilis Serology Negative Negative [facility] SERVICES Specimen Blood - Venous blood (substance) Performing Organization Address [facility]/ZIP Code Phon e Number [facility] [address] [place] [address] SERVICES LYME AB (09/22/2021 9:58 EDT) Pathologist Sig nature Lyme Ab Negative Negative [facility] SERVICES Specimen Blood - Venous blood (substance) Performing Organization Address [facility] Phon e Number [facility] [address] [place] [address] SERVICES AST (09/22/2021 9:58 EDT) Pathologist Sig nature AST 26 15 - 46 U/L [facility] SERVICES Specimen Blood - Venous blood (substance) Performing Organization Address [facility] Phon e Number [facility] [address] [place] [address] SERVICES (ABNORMAL) VITAMIN D (25,OH) (09/07/2021 12:58 EDT) 25OH Vitamin D 29 (L) 30 - 100 [facility] Comment: ng/mL [facility] Vitamin D 25,OH Interpretive Ranges: SERV ICES Deficiency: ??<10.0 ng/mL Insufficiency: ??10.0 - 30.0 ng/mL Sufficiency: ??30.0 - 100.0 ng/mL Toxicity: ??>100.0 ng/mL Specimen Blood - Venous blood (substance) Performing Organization Address [facility]/ZIP [facility] Phon e Number [facility] [address] [place] [address] SERVICES PTH INTACT (09/07/2021 12:58 EDT) Pathologist Sig nature Intact PTH 24 19 - 88 pg/mL [facility] RY SERVICES Specimen Blood - Venous blood (substance) Performing Organization Address [facility] Phon e Number [facility] [address] [place] [address] SERVICES from Last 3 Months Insurance Payer Benefit Plan / Subscriber ID Effective Dates Phone Addre ss Type Group MEDICARE MEDICARE A/B [id number] 2017-Danitza P O DENISE [id number] Medicare [place] [address] [place] [id number] 2018-Reyna TAFOYA [address] [place] [address] [place] [address] Lizette Roberts Personal/Family Self 1955 [address] (Home) [place], [place] [address]Lizette Roberts Personal/Family Self 1955 [address] (Home) [place] [address] Advance Directives For more information, please contact: [phone] Documents on File Type Date Recorded 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 Default/Not Discussed Care Teams Suspension Cord Tier Relationship Specialty Start Date End Date Viki Elaine PA PCP - General 10/27/[address] [place] [address] [place] [address] Ewa Bynum MD Neurology 11/04/[address] [place] [address], [address] [place] [address] Vinay Mercado MD 11/04/[address] [place] [address] [address] [place], [place] [id number]
--- OUTSIDE RECORDS SUMMARY | 2021-12-04 14:01 | XMS_ITS | Encounter Summary ---
:1955 Author Organization [facility] Address [address] [place] [address] Care Team Providers Name Role Phone Viki Elaine Primary Care Provider [phone] Reason for Visit Reason Onset Date Comments Medication Questions 10/28/2021 zofran/temodar Encounter Details Date Type Department Care Team Description 10/28/2021 Telephone [facility] Ewa Bynum M edication Questions Hematology & Oncology MD (zofran/temodar) - [address] [address] [place], [place] [phone] (Wo rk) Social History Tobacco Use Types [...] Telephone Encounter - Yoli Tripp RN - 10/28/2021 0951 EDT LVM providing clarification on when Lorin should start her temodar which would be on Tuesday, 1 hour before radiation. Gave Tang our call back number to connect. Connected with Tang and reviewed how Lorin should be taking temodar. Education provided. I will call on Tuesday as well to ensure they have no questions before starting treatment on 11/02. elephone Encounter - Renu Melgar - 10/28/2021 0930 EDT Patient's , Tang calling to speak with nurse. Tang says patient is due to begin treatment on Tuesday and wants to confirm that patient is supposed to take zofran and temodar the night before? Please call back to discuss documented in this encounter Plan of Treatment Not on filedocumented as of this encounter Visit Diagnoses Not on filedocumented in this encounter Care Teams Morgue Technician Relationship Specialty Start Date End Date Viki Elaine PA PCP - General 10/27/[address] [place] [address] [place] [id number] documented as of this encounter
--- OUTSIDE RECORDS SUMMARY | 2021-12-04 14:01 | XMS_ITS | Encounter Summary ---
:1955 Author Organization [facility] Address [address] [place] [address] Care Team Providers Name Role Phone Viki Elaine Primary Care Provider [phone] Ewa Bynum MD Unavailable Vinay Mercado MD Unavailable Reason for Visit Reason Onset Date Comments Appointment Related 11/20/2021 Follow-up 11/20/2021 Encounter Details Date Type Department Care Team Description 11/20/2021 Telephone [facility] Ewa Bynum A ppointment Related; Hematology & Oncology Follow-up - [address] [address] [place], [place] [address] (Wo rk) Social History Tobacco [...] this encounter Miscellaneous Notes Telephone Encounter - Juan Alberto Coulter - 11/20/2021 1212 EDT Patient's sister Valorie states she is confirming that patient will continue care at [facility] and to cancel the 11/24 appointment elephone Encounter - Yoli Tripp, LZIABETH - 11/20/2021 1122 EDT Lorin is still in rehab and she is scheduled for an in person visit with Dr. Bynum 11/24. They got a call from [facility] but were not sure who it was exactly. I explained to them that we sent a referral to [facility] because for Lorin to get treatment locally she needs to establish care with a local oncologist who can write orders in the [facility]. It was explained that they can continue on with Dr. Bynum for MRI's and follow ups or they can transfer her care to [facility] entirely. They will reach out to Dr. Baumann's office and let us know. They will be transferring all care to Dr. Baumann's office at [facility]. All records will be transferred. elephone Encounter - Renu Melgar - 11/20/2021 1052 EDT Patient's , Tang calling to speak with nurseYoli regarding 11/24 appt. Please call back to discuss documented in this encounter Plan of Treatment Not on filedocumented as of this encounter Visit Diagnoses Not on filedocumented in this encounter Care Teams History Instructor Relationship Specialty Start Date End Date Viki Elaine PA PCP - General 10/27/[address] [place] [address] [place] [address] Ewa Bynum MD Neurology 11/04/21 [address], [address] [place] [address] Vinay Mercado MD 11/04/[address] [place] [address] [address] [place], [place] [id number] documented as of this encounter
--- OUTSIDE RECORDS SUMMARY | 2021-12-04 14:01 | XMS_ITS | Encounter Summary ---
:1955 Author Organization [facility] Address [address] [place] [address] Care Team Providers Name Role Phone Viki Elaine Primary Care Provider [phone] Ewa Bynum MD Unavailable Vinay Mercado MD Unavailable Reason for Referral Consult (See Order Priority) - Denied Specialty Diagnoses / Procedures Referred By Contact Refer red To Contact Radiation Oncology Diagnoses Seizure (HCC-CMS) (HCC) Glioblastoma (HCC) Jeison Wray MD Kapadia, Nirav, MD [address] [place] [phone] Fax: Referral ID Status Reason Start Date Expiration Date Visits V isits Requested Authorized [id number] Denied Specialty 11/13/2021 1 0 Services Required Question Answer Reason for Request: Post-hospitalization f/u for seizures w/ GBM; ELECTRONIC GLUER on hold onsult (See Order Priority) - Authorization Not Required Specialty Diagnoses / Referred By Contact Referred To Contact Procedures Hematology and Diagnoses Seizure (HCC-CMS) (HCC) Glioblastoma (HCC) Jeison Wray MD [place]int[place], [place], Oncology [address] [place], [place] [address]Hiren BRICE [address] [address] [facility], [facility] [address] 2 [place] [address] Phone: Fax: Referral ID Status Reason Start Expiration Visits Visits Date Date Requested Authorized [id number] Authorization Specialty 1 1 Not Required Services 2 Required Question Answer Reason for Request: 2-week f/u post-hospitalizat ion for seizures with GBM Reason for Visit Reason Comments Seizures Pt arrives by EMS A&Ox2-3, a ble to answer questions but with some confusion and sleeping between answeri ng questions. VSS: 135/65, 60bpm, 98% RA. Pt transfered from [facility]. Pt with recent brain tumor started chemo last week. At chemo on 11/03 had a seizure. Transfered to [facility] for neuro work up. No seizure activity observed by EMS during two hour transport. Auth/Cert Specialty Diagnoses / Procedures Referred By Contact Refer red To Contact Diagnoses Seizure (HCC-CMS) (HCC) seizure activity Referral ID Status Reason Start Date Expiration Date Visits Requ ested Visits Authorized [id number] 1 1 Encounter Details Date Type Department Care Team Description 11/04/2021 - Hospital [facility] China Turner MD [address] [facility], [facility], [address] [place] [address] Seizure (HCC-CMS) (HCC) (Primary Dx); 11/13/2021 Encounter Neurosurgery Unit Augustine Guillory MD [address] [facility], [facility], [address] [place] [address] Glioblastoma (HCC); [address] [place] [address] Jackelin Christina MD [address] [place] [address], [address] [place] [address] Glioblastoma (HCC-CMS) ([facility]) [place], [place] Damian Arzate MD [address] [facility], [facility], [address] [place] [id number] Isaías Hartman Jr., MD [address] [facility] Medical Office Building, [address] [place] [address] [phone] Social History Tobacco Use Types Packs/Day Years Used Date Never Smoker Smokeless Tobacco: Never Used Sex Assigned at Date Recorded Not on file COVID-19 Exposure Response Date Recorded In the last 10 days, have you been in contact Unable to asse ss 11/04/2021 0:31 EDT with someone who was confirmed or suspected to have Coronavirus/COVID-19? documented as of this encounter Last Filed [...] Body Mass Index 24.96 11/04/2021 0320 EDT documented in this encounter Functional Status Functional Status Response [...] or older) documented as of this encounter Discharge Summaries Jeison Wray MD - 11/13/2021 0948 EDT Neurology Discharge Summary Primary Care Provider: Viki Elaine Attending Physician: Isaías Hartman Jr., MD Admit Date: 11/04/21 Discharge Date: 11/13/21 Disposition: Home or self care Problems Presenting Problem: Seizure Principal/Final Diagnosis: Seizures in the context of known GBM Additional Problems Managed in the Hospital Active Hospital Problems Diagnosis Date Noted ??? *Seizure (HCC-CMS) ([facility]) 11/04/2021 ??? Glioblastoma ([facility]) 11/05/2021 Resolved Hospital Problems No resolved problems to display. Hospital Course Lizette Cardona is a 66 y.o. 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 Bynum??of neuro-oncology. She started chemo and radiation therapy on 11/02/2021 with daily temozolomide 140 mg and plan for 40Gy over 15 fractions for the RT. On 11/04, she presented to [facility] for seizure activity, for which she had previously been started on levetiracetam 500 mg twice daily in the context of her known GBM. There was limited paperwork for review from the other hospital at the time of admission, but patient was transferred to [facility] for further management given ongoing seizure activity and she follows with neurooncology here. Upon arrival, she was afebrile with stable vital signs and was found to have a mild hyponatremia of 131 and there were no acute intracranial abnormalities on her CT of the head without contrast. Her levetiracetam was increased from 500 mg twice daily to 1000 mg twice daily and she promptly underwent MR head with and without contrast which revealed the previously seen large, heterogeneously enhancing mass centered in the splenium of the corpus callosum in the left parietal lobe with seemingly unchanged internal hemorrhage and decreased amount of associated vasogenic edema. Also noted to be an interval increase in cortical expansion with T2/FLAIR hyperintensity and enhancement involving the right go gulate gyrus measuring up to 2.1 cm, deemed concerning for enlarging/new site of disease. Her hospital course was hallmarked by initial difficulty in controlling seizures and subsequent encephalopathy. Her seizures were readily apparent clinically and she had recurrence of the same semiology of simultaneous tonic contraction of the RUE and RLE which tended to last <30 seconds, initiallyup to several times/hr. vEEG was most notable for moderate diffuse slowing with more focal slowing within the left hemispheric breach rhythm (in the setting of prior neurosurgical intervention) with brief focal clinical seizures noted corresponding to this area. These occurred up to several times per hour at their peak, so throughout her hospital course she received an additional Keppra load and thiswas increased to 1500 twice daily. Given ongoing seizures, she was also loaded with valproic acid x2(low trough level after first load) and started on valproate 500 mg twice daily, which was titrated to 1000 mg twice daily. She also had a lacosamide load which was not continued daily. She was also administered lorazepam intermittently for acute seizure management and it was noted that on the EEG she tended to have periods of 4-5 hours after lorazepam without any seizure activity. Thus, she was also started on clobazam initially at 5 mg twice daily given her benzodiazepine response.However, subsequently she became encephalopathic, which was thought to be due to a combination of postictal phenomena as well as rapid titration of multiple antiseizure medications. There was a consideration of valproic acid toxicity due to brief hyperammonemia, but carnitine levels were WNL. She was seen by neuro-oncology while inpatient, including her primary neuro oncologist. After much discussion, ultimately has done his encephalopathy improved more towards her baseline, the decision was made to pursue a stint in rehab prior to resuming her plan for temozolomide chemotherapy with concomitant radiation In effort to improve her functional status. Ultimately valproate was decreased to 375 mg BID and clobazam liquid solution to 2.5 mL. Levetiracetam continued at 1500 m BID. Encephalopathy improved significantly w/ these changes and Lizette remainedstable from a seizure perspective for >72 hrs, and she was deemed stable for discharge to [facility], set for 1000 on 11/13/21. Medication Changes: - Hold off on temozolomide for right now - Continue levetiracetam (Keppra) 1,500 mg q12h - Continue clobazam (Onfi) 2.5 mg oral solution at bedtime - Continue divalproex (Depakote sprinkles) 375 mg q12h - Continue dexamethasone at increased dose of 6 mg q12h Follow Up: - With neuro-oncology Dr. Bynum in 2-3 wks (referral placed) - With radiation oncology Dr. Mercado in 2-3 wks (referral placed) Allergies and Immunizations No Known Allergies There is no immunization history on file for this patient. Transition of Care Plans Condition at Discharge Improved Neurological Exam at Discharge MENTAL STATUS: Drowsy, but awake and becomes alert easily. Follows simple commands. Affect normal with congruent mood. ?? LANGUAGE: Speech clear, spontaneous, and fluent. No aphasia or dysarthria. Volume and intonation arenormal. Naming, repetition, and comprehension are all intact. ?? CRANIAL NERVES: CN II: No formal visual field testing today. Acuity grossly intact, PERRLA. CN III-IV, : Pupils 4mm (R/L). EOMMs intact with no nystagmus, gaze palsy or preference. CN V: Normal masseter bulk. V1-V3 intact to LT. CN VII: Face symmetric bilaterally. Smile symmetric. Buries eyelashes and raises eyebrows symmetrically. Nasolabial folds and palpebral folds symmetric bilaterally. CN VIII: Hearing grossly intact. CN IX-X: No dysarthria. CN XI: Shoulder shrug symmetric with full strength. CN XII: Tongue midline, no deviation, atrophy, or fasciculations. ?? MOTOR: Normal muscle bulk and tone. No pronator drift. No tremors or abnormal movements noted duringexam. Strength appears full in upper extremities extremities. Symmetric 4+/5 strength in the bilateral lower extremities. ?? SENSORY: Intact to light touch symmetrically in proximal/distal UE/LEs. Double simultaneous stimulation intact. ?? REFLEXES: DTRs: Right Left Biceps 2+ 2+ Bracheoradialis 2+ 2+ Patellar 2+ 2+ Achilles 2+ 2+ Plantar responses Flexor Flexor Giang sign Absent Absent ?? COORDINATION: FNF and HTS intact bilaterally w/o dysmetria. ?? GAIT: Deferred Results Pending at Discharge Test results still pending from this admission None Relevant Studies at Discharge MR Head w/wo Contrast 11/04/21 IMPRESSION 1. While the size of the large heterogeneously enhancing mass centered in the splenium and left parietal lobe with areas of internal hemorrhage has not significantly changed in size, there is a decreased amount of associated edema. ?? 2. Interval increase in size of cortical expansion with T2/FLAIR hyperintensity and enhancement involving the right cingulate gyrus measuring up to 2.1 cm, concerning for an enlarging/new site of multifocal disease. EEG (most recently updated 11/07/21) Impression: This is an abnormal EEG due to moderate diffuse slowing, further embedded slowing withinthe left hemispheric breach rhythm (seen within the context of prior neurosurgical intervention), most prominent in the parasaggital leads. There are frequent likely focal clinical seizures without ictal correlate for very brief right lower extremity stiffening/raising when seen on video, which likelyrepresent focal motor seizures not captured on EEG. - Discontinued thereafter and monitored clinically given improvements with medication changes. Last Lab Results at Discharge BUN: Lab Results Component Value Date BUN 27 (H) 11/13/2021 Creatinine: Lab Results Component Value Date CREATININE 0.44 (L) 11/13/2021 CBC: Lab Results Component Value Date WBC 6.00 11/13/2021 RBC 4.16 11/13/2021 HGB 13.8 11/13/2021 HCT 40.0 11/13/2021 MCV 96 11/13/2021 MCH 33.2 11/13/2021 MCHC 34.5 11/13/2021 PLT 98 (L) 11/13/2021 DIFFTYPE Auto 11/04/2021 Electrolytes: Lab Results Component Value Date NA 136 11/13/2021 K 4.0 11/13/2021 CL 99 11/13/2021 CO2 26 11/13/2021 HGB: Lab Results Component Value Date HGB 13.8 11/13/2021 Discharge Follow Up Follow-up appointments and procedures Amb Consult/Follow Up Neurology Reason for Request: 2-week f/u post-hospitalization for seizures with GBM Authorizing Provider: Jeison Wray MD Amb Consult/Follow Up Radiation Oncology Reason for Request: Post-hospitalization f/u for seizures w/ GBM; ELECTRONIC GLUER on hold Authorizing Provider: Jeison Wray MD Discharge Handoff Communication Discharge summary routed to Dr. Bynum, Dr. Mercado, and Viki Wray, DO PGY-2, Neurology Pager: [phone] nights and weekends 11/13/2021 9:44 Associated attestation - Isaías Hartman Jr., MD - 11/13/2021 0949 EDT Attestation: I saw and evaluated the patient for discharge on 11/13/2021. I agree with Dr. Wray's note. I personally spent 35 minutes in discharging services for this patient, including final examination, discussion of the hospital stay and recommendations/plan at discharge, coordinating communication to relevant caregivers and providers for continuation of care, review of discharge prescriptions, andpreparation/review of the discharge summary. Isaías Hartman MD Attending Physician - Department of Neurology 11/13/2021 9:49 documented in this encounter Medications at Time of Discharge Medication Sig Dispensed Refills Start Date End Date acetaminophen (TYLENOL) 500 Take 500 mg by 0 mg tablet mouth as needed for Pain. calcium carbonate (CALCIUM Take 500 mg by 0 500 ORAL) mouth daily. calcium citrate 200 mg (950 Take 200 mg by 0 mg) mouth daily. cloBAZam (ONFI) 2.5 mg/mL Take 1 mL by mouth 1 mL 0 suspension suspension at bedtime. Daily Max: 2.5 mg dexAMETHasone (DECADRON) 4 Take 1.5 Tablets by 120 Tablet 0 11/13/2021 mg tabletIndications: mouth 2 times Glioblastoma (HCC) daily. Take 4mg twice a day at 6am and 6 pm diphenhydramine HCl Take by mouth as 0 (BENADRYL ALLERGY ORAL) needed. divalproex (DEPAKOTE Take 3 Capsules by 1 capsule 0 022 SPRINKLE) 125 mg capsule mouth every 12 hours. docusate sodium (COLACE) Take 100 mg by 0 100 mg capsule mouth daily. levETIRAcetam (KEPPRA) 750 Take 2 Tablets by 1 Tablet 0 mg tablet mouth 2 times daily. Levothyroxine 100 mcg Take 100 mcg by 0 capsule mouth daily. Multivitamins with Minerals Take 1 Tablet by 0 tablet tablet mouth daily. ondansetron (ZOFRAN-ODT) 8 Take 30 minutes 30 Tablet 1 10/09 mg disintegrating before Temodar and tabletIndications: then every 8 hours Glioblastoma (HCC) as needed for nausea pantoprazole (PROTONIX) 20 Take 20 mg by mouth 0 mg tablet 2 times daily. sodium chloride 1,000 mg Take 1 g by mouth 0 soluble tablet daily. sulfamethoxazole-trimethopr Take 1 Tablet by 10 Tablet 0 im (BACTRIM/CO-TRIMOXAZOLE mouth three times a DS) 800-160 mg per week. tabletIndications: Glioblastoma (HCC) documented as of this encounter Ordered Prescriptions Prescription Sig Dispensed Refills Start Date End Date levETIRAcetam (KEPPRA) 750 Take 2 Tablets by 1 Tablet 0 mg tablet mouth 2 times daily. dexAMETHasone (DECADRON) 4 Take 1.5 Tablets by 120 Tablet 0 11/13/2021 mg tabletIndications: mouth 2 times daily. Glioblastoma (HCC) Take 4mg twice a day at 6am and 6 pm cloBAZam (ONFI) 2.5 mg/mL Take 1 mL by mouth 1 mL 0 suspension suspension at bedtime. Daily Max: 2.5 mg divalproex (DEPAKOTE Take 3 Capsules by 1 capsule 0 022 SPRINKLE) 125 mg capsule mouth every 12 hours. documented in this encounter Discharge Disposition Disposition Code Departure Means Destination Nursing Facility (Skilled) Skill ed Nursing documented in this encounter Progress Notes Latoya Mendoza, PT - 11/13/2021 1036 EDT [facility] Acute Therapy [facility] Discontinue/Discharge Note Date: 11/19/2021 SUBJECTIVE: None OBJECTIVE: The patient has been discharged from the hospital. Please refer to the Physical Therapy Initial Evaluation Note for details. ASSESSMENT: Unable to assess her current status as the patient was not seen for any additional therapy sessions. GOALS: All goals discontinued. PLAN: Discontinue physical therapy. LATOYA MENDOZA, PERI 11/19/2021 9:10 Lauryn Javed MD - 11/13/2021 0904 EDT Neurology Oncology Consult Progress Note Admission Date: 11/04/2021 Date of Service: 11/13/2021 PCP: Viki Elaine Requesting Physician: Dr. Glover, Neurology Reason for Consult: GBM with new onset seizure 24 Hour event: -NAEO -Clobazam changed from 2.5 mg BID to 2.5 mg QHS -No Seizure since 11/07 Subjective Lizette states she is feeling fine. She is much more alert today. She endorses that she has not had anymore seizures, eating well, and has gotten up out of bed to chair. She denies any agitation, AL, vision changes, dizziness, or other complaints. Review of Systems 10 point ROS negative or noncontributory unless otherwise stated above. PMH PSH History reviewed. No pertinent past medical history. History reviewed. No pertinent surgical history. Social History Family History Social History Tobacco Use ??? Smoking status: Never Smoker ??? Smokeless tobacco: Never Used Substance Use Topics ??? Alcohol use: Not on file No family history on file. [employer] Medications Current Outpatient Medications Medication Instructions ??? acetaminophen (TYLENOL) 500 mg, oral, PRN ??? calcium carbonate (CALCIUM 500 ORAL) 500 mg, oral, DAILY ??? calcium citrate 200 mg, oral, DAILY ??? dexAMETHasone (DECADRON) 4 mg, oral, 2 TIMES DAILY, Take 4mg twice a day at 6am and 6 pm ??? diphenhydramine HCl (BENADRYL ALLERGY ORAL) oral, PRN ??? docusate sodium (COLACE) 100 mg, oral, DAILY ??? levETIRAcetam (KEPPRA) 500 mg, oral, 2 TIMES DAILY ??? Levothyroxine 100 mcg, oral, DAILY ??? Multivitamins with Minerals tablet tablet 1 Tablet, oral, DAILY ??? ondansetron (ZOFRAN-ODT) 8 mg disintegrating tablet Take 30 minutes before Temodar and then every 8 hours as needed for nausea ??? pantoprazole (PROTONIX) 20 mg, oral, 2 TIMES DAILY ??? sodium chloride 1 g, oral, DAILY ??? sulfamethoxazole-trimethoprim (BACTRIM/CO-TRIMOXAZOLE DS) 800-160 mg per tablet 1 Tablet, oral, THREE TIMES WEEKLY ??? temozolomide (TEMODAR) 140 mg, oral, DAILY, Take zofran 30 minutes before temodar and take temodar 1 hour before radiation. Allergies No Known Allergies Objective Vitals Temp: [36.2 ??C (97.2 ??F)-36.8 ??C (98.2 ??F)] , Heart Rate: [62 BPM] , Pulse: [75] , Resp: [15-17], BP: (114-121)/(64-73) , SpO2: [96 %-98 %] , Numeric Pain Level (Scale 1-10): 0 Weight: Weight : 68 kg (150 lb) Body mass index is 24.96 kg/m??. Physical Exam: -Alert more interactive than previous exams -Breathing comfortably on RA Neurological exam: MENTAL STATUS: AAOx3 Follows simple commands. LANGUAGE: Speech clear, spontaneous, and fluent. No aphasia or dysarthria. CRANIAL NERVES: CN VII: Face symmetric bilaterally. Smile symmetric. Buries eyelashes and raises eyebrows symmetrically. Nasolabial folds and palpebral folds symmetric bilaterally. CN VIII: Hearing grossly intact. CN IX-X: No dysarthria. CN XI: Shoulder shrug symmetric with full strength. MOTOR: Normal muscle bulk and tone. No pronator drift. No tremors or abnormal movements noted duringexam. Formal strength testing as follows: RUE 5/5 throughout, LUE 5/5 strength throughout, RLE 5/5 throughout, LLE 4+/5 dorsiflexion GAIT: Deferred KPS: 50 Labs: reviewed and notable for: Recent Labs 11/13/21 0826 WBC 6.00 RBC 4.16 HGB 13.8 HCT 40.0 MCV 96 MCH 33.2 MCHC 34.5 PLT 98* Recent Labs 11/12/21 0832 NA 134* K 4.1 CL 97 CO2 28 BUN 22 CREATININE 0.48* CALCIUM 8.1* LABALBU 3.1* Recent Labs 11/12/21 0832 TBIL 0.7 ALKPHOS 49 AST 25 ALT 31 EEG: Findings: The monitoring period begins 11/07/2021 at 07:33 and ends at 16:05. ?? The background is continuous, reactive, mostly symmetric, and moderately organized with an anterior posterior gradient, although a previously noted posterior dominant rhythm is not well maintained. There is frequent diffuse polymophic slowing, lasting 1-5 seconds, consisting of theta-delta frequencies intermixed in the background. ?? There is further intermittent polymorphic theta-delta slowing seen over the left hemisphere near continuously, most prominent in the left parasagittal chain, embedded within a breach rhythm from patient's known biopsy site, with higher amplitudes noted and excess beta frequencies. ?? Electrographic seizures are no longer seen on EEG. There are numerous clinical push button events while the patient is awake. These clinical push button events are noted for right lower extremity raising and stiffening, which is very brief but likely represent focal seizures. There are approximately 25 clinical push button events. ?? Single lead EKG is not interpretable due to artifact. ?? Impression: This is an abnormal EEG due to moderate diffuse slowing, further embedded slowing withinthe left hemispheric breach rhythm (seen within the context of prior neurosurgical intervention), most prominent in the parasaggital leads. There are frequent likely focal clinical seizures without ictal correlate for very brief right lower extremity stiffening/raising when seen on video, which likelyrepresent focal motor seizures not captured on EEG. ?? This is the concluding segment of the recording. Imaging: reviewed and notable for MR HEAD W WO CONTRAST Result Date: 11/04/2021 1. While the size of the large [...] for an enlarging/new site of multifocal disease. Assessment Lizette Cardona is a 66 y.o. 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 Bynum??of neuro-oncology as an outpatient. Started RT 11/02/21 with plan for 40Gy in 15 fractions w/ concurrent temozolomide 140mg daily. She presented to [facility] initially due to concern for multiple seizure-like events described as right arm and leg shaking with retained awareness s/p 2 days startingCRT on 11/02/21. MRI w/ no significant change in size of mass, as well as significant associated edema,though less than noted in prior imaging. While at [facility] her [employer] dexamethasone was increased to 8mg BID, received bevicizumab 11/06, and treated for seizure with keppra load/depkote x2/lacosamidex1/prn IV lorazepam for breakthrough events. Currently she is on Dexamethasone 6 mg BID, Keppra 1500mg BID, Depakote 375 mg BID, clobazam 2.5mg at bedtime has remained seizure free from 11/07/21 and vEEG monitoring has been discontinued. Her mild confusion has resolved and was likely due to medication. At this time given KPS 50 but improving she will not be a candidate to continue RT, she will go to rehab to gain function prior to resuming RT. Explained to patient and family it often difficult to get insurance providers to approve rehab along with chemotherapy and radiotherapy. She will likely not resume concurrent chemoradiotherapy after rehab. One would hope that her rehab stay is short to enable her to resume timely treatment. KPS 50 Recommendations: - Hold prior ELECTRONIC GLUER regimen; plan to resume in future as OP - S/p Bevacizumab 10 mg/kg x1 11/06 - C/w Dexamethasone to 6 mg BID - C/w keppra 1.5G BID - C/w Depakote 375 mg BID - C/w clobazam 2.5 mg Qhs - Monitor hyponatremia - F/u in 2-[address] Bynum and Dr. Rogelio Salmeron MD Neurology Resident, PGY-2 Cortext or Pager [phone] after 7PM Discussed w/ Neurology Oncology attending, Dr. Bynum. Associated attestation - Ewa Bynum MD - 11/13/2021 1702 EDT I personally interviewed and examined the patient with the resident. I agree with documented findings and plan of care with the following additions: Agree with rehab discharge today. Will plan for resumption of radiation and chemotherapy in 2-3 weeks Courtney Fairchild Jennifer - 11/12/2021 0953 EDT CM Discharge Note CASE MANAGEMENT DISCHARGE NOTE DISCHARGE DATE/TIME: Tuesday11/13/21 at 10 am DESTINATION: [facility] rehab [facility] (If discharging to [facility]) COVID swab ordered and completed: covid negative result uploaded in [facility], facility aware TRANSPORTATION: [facility] fish bait picker at 10 am on Tuesday11/13/21 ACCEPTING MD AND NUMBER: n/a RN REPORT/UNIT: [phone] SUPERVISOR NURSE/CHARGE/MD NOTIFIED (Y/N): yes FORMS: COLST, PASRR, Ambulance placed in chart IM SIGNED (Y/NA): yes HOME HEALTH: none DME: n/a PHARMACY/PRESCRIPTIONS: n/a MEDS TO BEDS UTILIZED : NO Patient and/or family who participated in discharge plan: Patient and spouse Tang OTHER: EMPERATRIZ, dc summary and covid test uploaded in [facility] facility. Lola Nunn LMSW Assistant [employer] II Pager: [phone] Jeison Proctor MD - 11/12/2021 0716 EDT Neurology Progress Note Admit Date: 11/04/2021 Hospital day: LOS: 8 days Date of Service: 11/12/2021 Procedure/Diagnosis: Seizure PCP: Viki Elaine Code Status: Full Code Chief Complaint: Seizures in the setting of GBM 24 Hour Events: -NAEO Subjective: Much more alert this morning. Still disoriented. Denies seizures for past four days. No new complaints this morning. Has been having consistent BMs. Better PO intake today. She is much more talkative and even cracks some jokes. Her at the bedside is very pleased with her appearance and shows me a video of Lizette eating breakfast, stating how thrilled he was to come and see her doing that with good coordination. They remain on board with plan to transition to rehab facility in effort to improve functional status prior to resuming ELECTRONIC GLUER. Review of Systems: Focused ROS obtained. Pertinent positives and negatives noted in subjective. Objective/Physical Exam: VS current: Temp: 37.1 ??C (98.8 ??F) Pulse: 75 Resp: 15 BP: 118/75 SpO2: 97 % Exam: Neurological Exam: Neurological exam: MENTAL STATUS: Much more alert this morning. Oriented to self and but not place (says [facility] [place]). Not oriented to year or month. Can state her birthday. Follows simple commands. Affect normal with congruentmood. LANGUAGE: Speech clear, spontaneous, and fluent. No aphasia or dysarthria. CRANIAL NERVES: CN II: No formal visual field testing today. Acuity grossly intact, PERRLA. CN III-IV, : Pupils 3mm (R/L). EOMMs intact with fatigable horizontal nystagmus on conjugate lateral gaze bilaterally. No gaze palsy or preference. Normal direct & consensual pupillary light response bilaterally. CN V: Normal masseter bulk. V1-V3 intact to LT. CN VII: Face symmetric bilaterally. Smile symmetric. Buries eyelashes and raises eyebrows symmetrically. Nasolabial folds and palpebral folds symmetric bilaterally. CN VIII: Hearing grossly intact. CN IX-X: No dysarthria. CN XI: Shoulder shrug symmetric with full strength. CN XII: Tongue midline, no deviation, atrophy, or fasciculations. MOTOR: Normal muscle bulk and tone. Mild left pronator drift that is correctable. No tremors or abnormal movements noted during exam. Strength appears full in upper extremities extremities. BLE dorsiflexion/plantarflexion 4/5. Hip flexion 4/5 bilaterally. Better effort overall on individual muscle group testing today. SENSORY: Intact to light touch symmetrically in proximal/distal UE/LEs. Double simultaneous stimulation intact. REFLEXES: DTRs: Right Left Biceps 2+ 2+ Bracheoradialis 2+ 2+ Patellar 2+ 2+ Achilles 2+ 2+ Plantar responses Flexor Flexor Giang sign Absent Absent COORDINATION: No dysmetria. GAIT: Deferred Data Review: Labs: CBC: Lab Results Component Value Date WBC 5.74 11/12/2021 RBC 4.30 11/12/2021 HGB 14.2 11/12/2021 HCT 41.5 11/12/2021 MCV 97 11/12/2021 MCH 33.0 11/12/2021 MCHC 34.2 11/12/2021 PLT 73 (L) 11/12/2021 NEUTROABS 6.90 11/06/2021 BMP: Lab Results Component Value Date NA 134 (L) 11/12/2021 K 4.1 11/12/2021 CL 97 11/12/2021 CO2 28 11/12/2021 BUN 22 11/12/2021 CREATININE 0.48 (L) 11/12/2021 CALCIUM 8.1 (L) 11/12/2021 MG 2.0 11/04/2021 LABALBU 3.1 (L) 11/12/2021 Coagulation: Lab Results Component Value Date PROTIME 15.3 (H) 11/04/2021 LFT: Lab Results Component Value Date TBIL 0.7 11/12/2021 ALKPHOS 49 11/12/2021 AST 25 11/12/2021 ALT 31 11/12/2021 U/A: Lab Results Component Value Date CLARITYU Clear 11/04/2021 LABSPEC 1.025 11/04/2021 PHUR 8.0 11/04/2021 GLUCOSEU Negative 11/04/2021 BILIRUBINUR Negative 11/04/2021 KETONES Negative 11/04/2021 BLOODU Negative 11/04/2021 PROTEINUA Negative 11/04/2021 Imaging: MR Head WWO Contrast, 11/04/2021 IMPRESSION 1. While the size of the [...] for an enlarging/new site of multifocal disease. Procedures: EEG - 11/07 Impression: This is an abnormal EEG due to moderate diffuse slowing, further embedded slowing withinthe left hemispheric breach rhythm (seen within the context of prior neurosurgical intervention), most prominent in the parasaggital leads. There are frequent likely focal clinical seizures without ictal correlate for very brief right lower extremity stiffening/raising when seen on video, which likelyrepresent focal motor seizures not captured on EEG. ?? This is the concluding segment of the recording. Assessment: Lizette Cradona is a 66 y.o. 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 Bynum of neuro-oncology as an outpatient (started temozolomide + RT for treatment on 11/02). She presented to [facility] initially on 11/03 due to concern for multiple seizure-like events described as right arm and leg shaking with retained awareness. During this hospital admission, she has had episodic tonic activity of the right upper and lower extremities which correlates on EEG w/ left hemispheric discharges. She has been seizure free over the past few days w/ question of a sole brief event this AM (<10s) on her current medication regimen ofKeppra 1500 mg BID, Depakote 750 mg BID, and clobazam 2.5 mg at bedtime. Per her neuro- oncologist, Dr. Bynum, the plan is to resume ELECTRONIC GLUER as an outpatient after rehab. Course was complicated by encephalopathy from 11/07 - 11/10, although she has been progressively more alert and interactive for the past two days. Encephalopathy likely due multiple anti-seizure medications and increased doses since arriving. She seems particularly sensitive to benzos and ammonia cleared quickly (new high dose valproate). Seizure now under control, monitoring closely for re-emergence of seizure activity. Plan for discharge to [facility] tomorrow 11/13. Plan: #Breakthrough Seizures #Epilepsia Partialis Continua #Acute encephalopathy Initially presented with post-ictal AMS. S/p vEEG; events well-characterized clinically and have correlated focally on EEG - seizures have now resolved. S/p Keppra load, Depakote load x2, and Vimpat load. - Senna 2 tabs at bedtime - Levetiracetam 1500 mg BID - Clobazam 2.5 mg at bedtime - Valproic acid 375 mg BID - VPA level 89 10/3 - Carnitine level pending - Daily CMP - Connected with nurse, plan to closely monitor for seizure events as they can be subtle; based on number of events may further titrate clobazam dose - Contingency for acute seizure management: If seizures lasting >/= 1 minute or frequency increases to 1/h or more, will utilize Ativan as needed #Glioblastoma multiforme Diagnosed 10/09/2021 with biopsy on 10/13/2021 confirming GBM, IDH-wildtype, WHO Grade 4, MGMT promoter methylation negative. Started ELECTRONIC GLUER 11/02/21 with plan for 40Gy in 15 fractions w/ concurrent temozolomide 140mg daily. S/p 2 days of ELECTRONIC GLUER. MRI 11/04 w/ c/f enlargement or new site of disease in the right cingulate gyrus though significant decrease in edema. - Hold prior ELECTRONIC GLUER regimen; plan to resume in future as OP pending seizure control - S/p Bevacizumab 15 mg/kg x1 11/06 - Dexamethasone 6 mg BID - Appreciate neuro-oncology colleagues reaching out to the patient's radiation oncologist. At this point, Lizette is not well enough to return home and resume her ELECTRONIC GLUER, and would benefit from rehabilitation at a rehab facility after discharge. Decision has been made at this point to pursue rehab to help her return nearer to her baseline prior to resuming some combination of chemo and radiation therapy. An alternative possibility would be a transfer to a hospital closer to the site of her radiation therapy ([place]), but our team does not think she is in good enough condition to tolerate radiation well at this time. #Thrombocytopenia Of uncertain chronicity, perhaps exacerbated by valproate use. Appears stable. PLT 110 on arrival (10/27). 80 on 11/10. - Monitor closely for any signs of bleeding - If down-trending further, will re-discuss valproate - Daily CBC #SIADH #Mild chronic hyponatremia Chronic = >24hrs but this was not a problem for her prior to the last month. 11/10: Urine osm 448,Na 46.7; consistent with SIADH. Likely etiology is due to GBM. Stable ~130. - Daily BMP - Hold [employer] NaCl tablets - Fluid restriction (<2L per day) - If down-trending, will consider adding Winter BID #Hypothyroidism - [employer] levothyroxine 100mcg daily ?? Diet: Regular DVT PPX: Lovenox 40mg daily Code Status: Full Discharge Plan: To rehab tomorrow 11/13 as above Jose Cortes, MS3 Pager #[phone]/Cortext 11/12/2021 7:16 Attestation statement: I was present with the medical student for the history, exam, and medical decision making documented. I have personally performed my own physical exam and medical decision making. I have verified and agree with (or, as indicated, have edited) the medical student's documentation. Jeison Wray, PGY-2, Neurology Pager: [phone] nights and weekends Associated attestation - Isaías Hartman Jr., MD - 11/13/2021 0950 EDT Attestation: The Resident was present with the medical student for the history, exam, medical decision making as documented. I personally evaluated the patient on 11/12/2021 and I have performed my own physical examand medical decision making. I have verified and agree with (or, as indicated, have edited) the combined medical student's/resident's documentation. Isaías Hartman MD Attending Physician - Department of Neurology 11/13/2021 9:50 Ewa Bynum MD - 11/11/2021 1105 EDT Neurology Oncology Consult Progress Note Admission Date: 11/04/2021 Date of Service: 11/11/2021 PCP: Viki Elaine Requesting Physician: Dr. Glover, Neurology Reason for Consult: GBM with new onset seizure 24 Hour event: -NAEO -Clobazam changed from 5 mg BID to 2.5 mg BID -No Seizure since 11/07 Subjective Lizette states she is feeling fine. Her sister who is at the bedside reports no further seizure, whichwas confirmed by primary team/chart review. She seems less confused, and her sister feels she is more alert/doing better today 11/11/21. She denies fevers, chills, vision changes, n/v, or dizziness. The team explained to Lizette and her sister that at this time navin Padgett will go to rehab; most rehab do not pay for chemo therefore it is unlikely that chemo can be continued at rehab. The hope is that she will stay at rehab for a short time to regain strength so that ELECTRONIC GLUER can be resumed. The team also explained that her clobazam will be decreased to nightly to lessen sedation while preventing seizure and the patient was amenable to this plan. Review of Systems 10 point ROS negative or noncontributory unless otherwise stated above. PMH PSH History reviewed. No pertinent past medical history. History reviewed. No pertinent surgical history. Social History Family History Social History Tobacco Use ??? Smoking status: Never Smoker ??? Smokeless tobacco: Never Used Substance Use Topics ??? Alcohol use: Not on file No family history on file. [employer] Medications Current Outpatient Medications Medication Instructions ??? acetaminophen (TYLENOL) 500 mg, oral, PRN ??? calcium carbonate (CALCIUM 500 ORAL) 500 mg, oral, DAILY ??? calcium citrate 200 mg, oral, DAILY ??? dexAMETHasone (DECADRON) 4 mg, oral, 2 TIMES DAILY, Take 4mg twice a day at 6am and 6 pm ??? diphenhydramine HCl (BENADRYL ALLERGY ORAL) oral, PRN ??? docusate sodium (COLACE) 100 mg, oral, DAILY ??? levETIRAcetam (KEPPRA) 500 mg, oral, 2 TIMES DAILY ??? Levothyroxine 100 mcg, oral, DAILY ??? Multivitamins with Minerals tablet tablet 1 Tablet, oral, DAILY ??? ondansetron (ZOFRAN-ODT) 8 mg disintegrating tablet Take 30 minutes before Temodar and then every 8 hours as needed for nausea ??? pantoprazole (PROTONIX) 20 mg, oral, 2 TIMES DAILY ??? sodium chloride 1 g, oral, DAILY ??? sulfamethoxazole-trimethoprim (BACTRIM/CO-TRIMOXAZOLE DS) 800-160 mg per tablet 1 Tablet, oral, THREE TIMES WEEKLY ??? temozolomide (TEMODAR) 140 mg, oral, DAILY, Take zofran 30 minutes before temodar and take temodar 1 hour before radiation. Allergies No Known Allergies Objective Vitals Temp: [35.9 ??C (96.6 ??F)-36.7 ??C (98.1 ??F)] , Heart Rate: [68 BPM] , Pulse: [68] , Resp: [14-18], BP: (123-135)/(71-100) , SpO2: [96 %-98 %] , Numeric Pain Level (Scale 1-10): 0 Weight: Weight : 68 kg (150 lb) Body mass index is 24.96 kg/m??. Physical Exam: -Somulent -Breathing comfortably on RA Neurological exam: MENTAL STATUS: AAOx2 (person/place, thought month was October 16 ). Follows simple commands. LANGUAGE: Speech clear, spontaneous, and fluent. No aphasia or dysarthria. CRANIAL NERVES: CN VII: Face symmetric bilaterally. Smile symmetric. Buries eyelashes and raises eyebrows symmetrically. Nasolabial folds and palpebral folds symmetric bilaterally. CN VIII: Hearing grossly intact. CN IX-X: No dysarthria. CN XI: Shoulder shrug symmetric with full strength. MOTOR: Normal muscle bulk and tone. No pronator drift. No tremors or abnormal movements noted duringexam. Formal strength testing as follows: RUE 5/5 throughout, LUE 4+/5 strength throughout, RLE 5/5 throughout, LLE 4+/5 dorsiflexion GAIT: Deferred KPS: 40 Labs: reviewed and notable for: Recent Labs 11/11/21 0748 WBC 6.35 RBC 4.29 HGB 14.2 HCT 40.4 MCV 94 MCH 33.1 MCHC 35.1 PLT 66* Recent Labs 11/11/21 0748 NA 130* K 4.2 CL 97 CO2 28 BUN 25 CREATININE 0.43* CALCIUM 8.2* LABALBU 2.9* Recent Labs 11/11/21 0748 TBIL 0.8 ALKPHOS 41 AST 21 ALT 24 EEG: Findings: The monitoring period begins 11/07/2021 at 07:33 and ends at 16:05. ?? The background is continuous, reactive, mostly symmetric, and moderately organized with an anterior posterior gradient, although a previously noted posterior dominant rhythm is not well maintained. There is frequent diffuse polymophic slowing, lasting 1-5 seconds, consisting of theta-delta frequencies intermixed in the background. ?? There is further intermittent polymorphic theta-delta slowing seen over the left hemisphere near continuously, most prominent in the left parasagittal chain, embedded within a breach rhythm from patient's known biopsy site, with higher amplitudes noted and excess beta frequencies. ?? Electrographic seizures are no longer seen on EEG. There are numerous clinical push button events while the patient is awake. These clinical push button events are noted for right lower extremity raising and stiffening, which is very brief but likely represent focal seizures. There are approximately 25 clinical push button events. ?? Single lead EKG is not interpretable due to artifact. ?? Impression: This is an abnormal EEG due to moderate diffuse slowing, further embedded slowing withinthe left hemispheric breach rhythm (seen within the context of prior neurosurgical intervention), most prominent in the parasaggital leads. There are frequent likely focal clinical seizures without ictal correlate for very brief right lower extremity stiffening/raising when seen on video, which likelyrepresent focal motor seizures not captured on EEG. ?? This is the concluding segment of the recording. Imaging: reviewed and notable for MR HEAD W WO CONTRAST Result Date: 11/04/2021 1. While the size of the large [...] for an enlarging/new site of multifocal disease. Assessment Lizette Cardona is a 66 y.o. 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 Bynum??of neuro-oncology as an outpatient. Started RT 11/02/21 with plan for 40Gy in 15 fractions w/ concurrent temozolomide 140mg daily. She presented to [facility] initially due to concern for multiple seizure-like events described as right arm and leg shaking with retained awareness s/p 2 days startingCRT on 11/02/21. MRI w/ no significant change in size of mass, as well as significant associated edema,though less than noted in prior imaging. While at [facility] her [employer] dexamethasone was increased to 8mg BID, received bevicizumab 11/06, and treated for seizure with keppra load/depkote x2/lacosamidex1/prn IV lorazepam for breakthrough events. Currently she is on Keppra 1500mg BID, Depakote 375 mg BID, clobazam 5mg BID has remained seizure free from 11/07/21 and vEEG monitoring has been discontinued. Given mild confusion this may be 2/2 postictal state vs reversible etiology such as Depakote toxicity vs oversedation from cobazam. At this time given KPS 40 she will not be a candidate to continue RT, she will likely require rehab to gain function prior to resuming RT. Explained to patient and family it often difficult to get insurance providers to approve rehab along with chemotherapy and radiotherapy. She will likely not resume concurrent chemoradiotherapy until after rehab. One would hope that her rehab stay is short to enable her to resume timely treatment. KPS 40 Recommendations: - Hold prior ELECTRONIC GLUER regimen; plan to resume in future as OP pending seizure control - S/p Bevacizumab 10 mg/kg x1 11/06 - C/w Dexamethasone to 6 mg BID - C/w keppra 1.5G BID - C/w Depakote 375 mg BID - Decrease clobazam 2.5 mg Qhs - Monitor hyponatremia - Given pt on valproic acid monitor/ follow up LFT, ammonia, and carnitine level Lauryn Salmeron MD Neurology Resident, PGY-2 Cortext or Pager [phone] after 7PM Discussed w/ Neurology Oncology attending, Dr. Bynum. I personally interviewed and examined the patient with the resident Dr. Salmeron. I agree with documented findings and plan of care with the have made appropriate additions above. Ewa Bynum MD Jeison Proctor MD - 11/11/2021 0917 EDT Neurology Progress Note Admit Date: 11/04/2021 Hospital day: LOS: 7 days Date of Service: 11/11/2021 Procedure/Diagnosis: Seizure PCP: Viki Elaine Code Status: Full Code Chief Complaint: Seizures in the setting of GBM 24 Hour Events: - Senna scheduled - Urine studies indicate SIADH, 2 liter/day fluid restriction - Clobazam changed to 2.5 mg at bedtime Subjective: More alert this morning. Denies seizures for past two days. No new complaints this morning. Has not had a BM yet but feels it is coming today. Review of Systems: Focused ROS obtained. Pertinent positives and negatives noted in subjective. Objective/Physical Exam: VS current: Temp: 36.5 ??C (97.7 ??F) Pulse: 68 Resp: 18 BP: (!) 135/100 SpO2: 98 % Exam: Neurological Exam: Neurological exam: MENTAL STATUS: Drowsy, but awake and becomes alert easily, although slow to respond to questioning -improved from yesterday. Oriented to self and but not place (says [facility] [place] [facility]). Oriented to year but not month. Can state her birthday. Follows simple commands. Affect normal with congruent mood. LANGUAGE: Speech clear, spontaneous, and fluent. No aphasia or dysarthria. CRANIAL NERVES: CN II: No formal visual field testing today. Acuity grossly intact, PERRLA. CN III-IV, : Pupils 4mm (R/L). EOMMs intact with no nystagmus, gaze palsy or preference. Normal direct & consensual pupillary light response bilaterally. CN V: Normal masseter bulk. V1-V3 intact to LT. CN VII: Face symmetric bilaterally. Smile symmetric. Buries eyelashes and raises eyebrows symmetrically. Nasolabial folds and palpebral folds symmetric bilaterally. CN VIII: Hearing grossly intact. CN IX-X: No dysarthria. CN XI: Shoulder shrug symmetric with full strength. CN XII: Tongue midline, no deviation, atrophy, or fasciculations. MOTOR: Normal muscle bulk and tone. Mild left pronator drift that is correctable. No tremors or abnormal movements noted during exam. Strength appears full in upper extremities extremities. BLE dorsiflexion/plantarflexion 4/5. Hip flexion 4/5 bilaterally. Low effort overall on individual muscle group testing today, but improved from yesterday. SENSORY: Intact to light touch symmetrically in proximal/distal UE/LEs. Double simultaneous stimulation intact. REFLEXES: DTRs: Right Left Biceps 2+ 2+ Bracheoradialis 2+ 2+ Patellar 2+ 2+ Achilles 2+ 2+ Plantar responses Flexor Flexor Giang sign Absent Absent COORDINATION: Mild dysmetria on [id number] testing R>L. GAIT: Deferred Data Review: Labs: CBC: Lab Results Component Value Date WBC 6.35 11/11/2021 RBC 4.29 11/11/2021 HGB 14.2 11/11/2021 HCT 40.4 11/11/2021 MCV 94 11/11/2021 MCH 33.1 11/11/2021 MCHC 35.1 11/11/2021 PLT 66 (L) 11/11/2021 NEUTROABS 6.90 11/06/2021 BMP: Lab Results Component Value Date NA 130 (L) 11/11/2021 K 4.2 11/11/2021 CL 97 11/11/2021 CO2 28 11/11/2021 BUN 25 11/11/2021 CREATININE 0.43 (L) 11/11/2021 CALCIUM 8.2 (L) 11/11/2021 MG 2.0 11/04/2021 LABALBU 2.9 (L) 11/11/2021 Coagulation: Lab Results Component Value Date PROTIME 15.3 (H) 11/04/2021 LFT: Lab Results Component Value Date TBIL 0.8 11/11/2021 ALKPHOS 41 11/11/2021 AST 21 11/11/2021 ALT 24 11/11/2021 U/A: Lab Results Component Value Date CLARITYU Clear 11/04/2021 LABSPEC 1.025 11/04/2021 PHUR 8.0 11/04/2021 GLUCOSEU Negative 11/04/2021 BILIRUBINUR Negative 11/04/2021 KETONES Negative 11/04/2021 BLOODU Negative 11/04/2021 PROTEINUA Negative 11/04/2021 Imaging: MR Head WWO Contrast, 11/04/2021 IMPRESSION 1. While the size of the [...] for an enlarging/new site of multifocal disease. Procedures: EEG - updated report 11/07 Impression: This is an abnormal EEG due to moderate diffuse slowing, further embedded slowing withinthe left hemispheric breach rhythm (seen within the context of prior neurosurgical intervention), most prominent in the parasaggital leads. There are frequent likely focal clinical seizures without ictal correlate for very brief right lower extremity stiffening/raising when seen on video, which likelyrepresent focal motor seizures not captured on EEG. ?? This is the concluding segment of the recording. Assessment: Lizette Cardona is a 66 y.o. R-handed female with PMHx significant for recently diagnosed GBM (biopsy9/26; MGMT unmethylated, IDH-wildtype, WHO grade 4) who follows with Dr. Bynum of neuro-oncology as an outpatient (started temozolomide + RT for treatment on 11/02). She presented to [facility] initially on 11/03 due to concern for multiple seizure-like events described as right arm and leg shaking with retained awareness. During this hospital admission, she has had episodic tonic activity of the right upper and lower extremities which correlates on EEG w/ left hemispheric discharges. She has been seizure free over the past few days w/ question of a sole brief event this AM (<10s) on her current medication regimen ofKeppra 1500 mg BID, Depakote 750 mg BID, and clobazam 2.5 mg at bedtime. However, she has been more encephalopathic and drowsy for the past 3-4 days (with minor improvement today 11/11). DDx of encephalopathy is Depakote-induced encephalopathy (can cause hyperammonemia as seen here), AED-induced sedation, progression of primary neoplasia. I suspect there is a combination ofall three. Though her seizures were difficult to control initially requiring multiple meds, her mental status has improved w/ scaling back her AEDs. Will monitor closely for re-emergence of seizure activity. Plan: #Breakthrough Seizures #Epilepsia Partialis Continua #Acute encephalopathy Initially presented with post-ictal AMS. S/p vEEG; events well-characterized clinically and have correlated focally on EEG - seizures have now resolved. S/p Keppra load, Depakote load x2, and Vimpat load. - Senna 2 tabs at bedtime - Levetiracetam 1500 mg BID - Clobazam 2.5 mg at bedtime - Valproic acid to 375 mg BID - VPA level 89 10/3 - Carnitine level pending - Daily CMP; will check ammonia once more - Connected with nurse, plan to closely monitor for seizure events as they can be subtle; based on number of events may further titrate clobazam dose - Contingency for acute seizure management: If seizures lasting >/= 1 minute or frequency increases to 1/h or more, will utilize Ativan as needed #Glioblastoma multiforme Diagnosed 10/09/2021 with biopsy on 10/13/2021 confirming GBM, IDH-wildtype, WHO Grade 4, MGMT promoter methylation negative. Started ELECTRONIC GLUER 11/02/21 with plan for 40Gy in 15 fractions w/ concurrent temozolomide 140mg daily. S/p 2 days of ELECTRONIC GLUER. MRI 11/04 w/ c/f enlargement or new site of disease in the right cingulate gyrus though significant decrease in edema. - Hold prior ELECTRONIC GLUER regimen; plan to resume in future as OP pending seizure control - S/p Bevacizumab 15 mg/kg x1 11/06 - Dexamethasone 6 mg BID - Appreciate neuro-oncology colleagues reaching out to the patient's radiation oncologist. At this point, Lizette is not well enough to return home and resume her ELECTRONIC GLUER, and would benefit from rehabilitation at a rehab facility after discharge. Decision has been made at this point to pursue rehab to help her return nearer to her baseline prior to resuming some combination of chemo and radiation therapy. An alternative possibility would be a transfer to a hospital closer to the site of her radiation therapy ([facility]), but our team does not think she is in good enough condition to tolerate radiation well at this time. #Thrombocytopenia Of uncertain chronicity, perhaps exacerbated by valproate use. Appears stable. PLT 110 on arrival (10/27). 80 on 11/10. - Monitor closely for any signs of bleeding - If down-trending further, will re-discuss valproate - Daily CBC #SIADH #Mild chronic hyponatremia Chronic = >24hrs but this was not a problem for her prior to the last month. 11/10: Urine osm 448,Na 46.7; consistent with SIADH. Likely etiology is due to GBM. Stable ~130. - Daily BMP - Hold WATCH BAND ASSEMBLER NaCl tablets - Fluid restriction (<2L per day) - If down-trending, will consider adding Winter BID #Hypothyroidism - WATCH BAND ASSEMBLER levothyroxine 100mcg daily ?? Diet: Regular DVT PPX: Lovenox 40mg daily Code Status: Full Discharge Plan: Uncertain at this time Jose Cortes, MS3 Pager #[phone]/Cortext 11/11/2021 9:18 Attestation statement: I was present with the medical student for the history, exam, and medical decision making documented. I have personally performed my own physical exam and medical decision making. I have verified and agree with (or, as indicated, have edited) the medical student's documentation. Jeison Wray, DO PGY-2, Neurology Pager: [phone] / [phone] nights and weekends Associated attestation - Isaías Hartman Jr., MD - 11/12/2021 1320 EDT Attestation: The Resident was present with the medical student for the history, exam, medical decision making as documented. I personally evaluated the patient on 11/11/2021 and I have performed my own physical examand medical decision making. I have verified and agree with (or, as indicated, have edited) the combined medical student's/resident's documentation. Isaías Hartman MD Attending Physician - Department of Neurology 11/12/2021 13:20 Heidi Hermosillo OTR-L - 11/10/2021 1550 EDT [facility] Therapy Acute Therapies [place] ??? ADDENDUM: This addendum is intended as a Therapy Discharge Summary due to unplanned discharge of the patient. The information documented below this addendum was current at the time of last visit. Progress and patient response to treatment since the last progress note are summarized below. OBJECTIVE: In this reporting period 11/08/2021 to today, the patient has been seen for therapy services. Therapyis discontinued at this time as the patient has been discharged from the hospital.. Relevant objective findings: See below encounter ASSESSMENT: Unable to assess current status as the patient was not seen for any additional therapy sessions. Patient response to treatment and goal status at time of last visit: GOALS: Discontinue all below goals Short Term Goals: ? N/A Senior Care Goals: 1-3 weeks ? Patient will be: Min contact assist with Self feeding. ? Patient will be: Min contact assist with UE dressing and LE dressing. ? Patient will be: Min contact assist with Toileting. ? Pt will follow 1 step simple commands consistently. PLAN: Discontinue therapy. We would be happy to see this patient in the future with a new referral. LINDSEY Desai 11/15/21 9:00 Occupational Therapy Encounter Note Date of Service: 11/10/2021 Subjective/Objective SUBJECTIVE: Pt agreeable to participate in OT session today OBJECTIVE: Time: 1446 Total treatment time: 26 minutes. Timed code treatment minutes: 26 Interventions included: Mental functions Pt oriented to self. However when asked about the bystander (pt's sister), pt reported my sister. But named incorrectly Place - [facility]. Pt not oriented to the year Command following - Inconsistently follows simple one step commands. Attention - Pt demonstrates limited visual attention to a task, anticipate contributed by somnolence Self-Care/Home Management Session focussed on assessing pt's functional status, encouraging engagement in OOB self care activities. Bed mobility - Pt in semi fowlers at the start of therapy session. Supine>sit EOB - Needed mod A x2, with max vc cueing for sequencing, UE & LE positioning Upon sitting EOB, she demonstrated posterior LOB, fair trunk control, needed min contact assist to maintain static sitting balance. 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 Wiped her face with warm wash cloth - needed specific vc on sequencing and task completion The patient was left in:Recliner chair With the: Call beavers in reach and Chair alarm on Vital signs: BP - 135/80 (At rest) BP - 146/72 (Upon sitting EOB) Pt denies any symptoms related to postural changes Patient/Family Education: See above Team Communication: Notified:Nurse By:Face to face communication When:Prior to therapy After therapy About:Readiness for therapy and Response to therapy Assessment/Plan ASSESSMENT: Lizette tolerated the session fairly. She continues to be somnolent throughout the session. Pt is still below baseline. Continue to recommend dc DAVID pending medically appropriate. PLAN: Continue per plan of care Recommended Discharge Destination: Sub-acute rehabilitation Recommended Discharge Services: Occupational therapy at rehabilitation facility Recommended Discharge Equipment: To be determined by next care provider Pager: [phone] LINDSEY Desai, 11/10/2021, 15:51 Jeison Proctor MD - 11/10/2021 0728 EDT Neurology Progress Note Admit Date: 11/04/2021 Hospital day: LOS: 6 days Date of Service: 11/10/2021 Procedure/Diagnosis: Seizure PCP: Viki Elaine Code Status: Full Code Chief Complaint: Seizures in the setting of GBM 24 hour events: - Clobazam changed from 5 mg BID to 2.5 mg BID - Senna scheduled - Urine studies indicate SIADH Subjective: Lizette reports no seizures overnight, and is very tired this morning. She does not have any new complaints this morning. She denies having a BM recently, and does not remember the last time she had one. Review of Systems: Focused ROS obtained. Pertinent positives and negatives noted in subjective. Objective/Physical Exam: VS current: Temp: 36.1 ??C (97 ??F) Pulse: 71 Resp: 12 BP: 135/83 SpO2: 98 % Exam: Neurological Exam: Neurological exam: MENTAL STATUS: Drowsy, but awake and becomes alert easily, although slow to respond to questioning. Oriented to self and place. Can state her birthday. Follows simple commands. Affect normal with congruent mood. LANGUAGE: Speech clear, spontaneous, and fluent. No aphasia or dysarthria. CRANIAL NERVES: CN II: No formal visual field testing today. Acuity grossly intact, PERRLA. CN III-IV, : Pupils 4mm (R/L). EOMMs intact with no nystagmus, gaze palsy or preference. Normal direct & consensual pupillary light response bilaterally. CN V: Normal masseter bulk. V1-V3 intact to LT. CN VII: Face symmetric bilaterally. Smile symmetric. Buries eyelashes and raises eyebrows symmetrically. Nasolabial folds and palpebral folds symmetric bilaterally. CN VIII: Hearing grossly intact. CN IX-X: No dysarthria. CN XI: Shoulder shrug symmetric with full strength. CN XII: Tongue midline, no deviation, atrophy, or fasciculations. MOTOR: Normal muscle bulk and tone. Mild left pronator drift that is correctable. No tremors or abnormal movements noted during exam. Strength appears full in upper extremities extremities. LLE dorsiflexion/plantarflexion 3/5, RLE dorsiflexion/plantarflexion 4/5. Proximal LE strength testing 4/5 bilaterally. Very drowsy, low effort overall on individual muscle group testing today. SENSORY: Intact to light touch symmetrically in proximal/distal UE/LEs. Double simultaneous stimulation intact. REFLEXES: DTRs: Right Left Biceps 2+ 2+ Bracheoradialis 2+ 2+ Patellar 2+ 2+ Achilles 2+ 2+ Plantar responses Flexor Flexor Giang sign Absent Absent COORDINATION: Not formally assessed today due to patient's mental status. GAIT: Deferred Data Review: Labs: CBC: Lab Results Component Value Date WBC 7.34 11/10/2021 RBC 4.50 11/10/2021 HGB 14.6 11/10/2021 HCT 42.1 11/10/2021 MCV 94 11/10/2021 MCH 32.4 11/10/2021 MCHC 34.7 11/10/2021 PLT 80 (L) 11/10/2021 NEUTROABS 6.90 11/06/2021 BMP: Lab Results Component Value Date NA 131 (L) 11/09/2021 K 4.4 11/09/2021 CL 96 11/09/2021 CO2 28 11/09/2021 BUN 24 11/09/2021 CREATININE 0.47 (L) 11/09/2021 CALCIUM 8.2 (L) 11/09/2021 MG 2.0 11/04/2021 LABALBU 3.1 (L) 11/09/2021 Coagulation: Lab Results Component Value Date PROTIME 15.3 (H) 11/04/2021 LFT: Lab Results Component Value Date TBIL 0.8 11/09/2021 ALKPHOS 42 11/09/2021 AST 21 11/09/2021 ALT 24 11/09/2021 U/A: Lab Results Component Value Date CLARITYU Clear 11/04/2021 LABSPEC 1.025 11/04/2021 PHUR 8.0 11/04/2021 GLUCOSEU Negative 11/04/2021 BILIRUBINUR Negative 11/04/2021 KETONES Negative 11/04/2021 BLOODU Negative 11/04/2021 PROTEINUA Negative 11/04/2021 Imaging: MR Head WWO Contrast, 11/04/2021 IMPRESSION 1. While the size of the [...] for an enlarging/new site of multifocal disease. Procedures: EEG - updated report 11/07 Impression: This is an abnormal EEG due to moderate diffuse slowing, further embedded slowing withinthe left hemispheric breach rhythm (seen within the context of prior neurosurgical intervention), most prominent in the parasaggital leads. There are frequent likely focal clinical seizures without ictal correlate for very brief right lower extremity stiffening/raising when seen on video, which likelyrepresent focal motor seizures not captured on EEG. ?? This is the concluding segment of the recording. Assessment: Lizette Cardona is a 66 y.o. 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 Bynum of neuro-oncology as an outpatient. She presented to [facility] initially on 11/03 due to concern for multiple seizure- like events described as right arm and leg shaking with retained awareness. Prior to arriving at [facility] she received lorazepam 1 mg x 2 as well as 1 g of Keppra. She had been on Keppra 500 mg twice daily due to previous seizure-like activity as well, and this was increased to 1 g twice daily on admission. ?? She just recently started temozolomide + RT for treatment on 11/02 prior to this presentation. Interestingly, MRI reveals an overall decreased level of edema associated with her mass, as this can often increase in the midst of RT, though unfortunately shows disease progression and now involving the right cingulate gyrus in addition to the previously noted areas. She has had episodic tonic activity of the right upper and lower extremities which correlates on EEGw/ left hemispheric discharges. She has been loaded with both Keppra x1, valproate x2, lacosamide x1;periodic IV lorazepam for acute seizure management. Has been on Keppra 1500 mg, Depakote 750 mg, andclobazam 5 mg, all BID. She has had multiple seizures since arriving to the hospital (though focal w/ retained awareness), but frequency has been steadily decreasing and it appears she has been seizurefree for the >24 hrs. However, more encephalopathic for the last few days. DDx of encephalopathy is Depakote-induced encephalopathy (can cause hyperammonemia as seen here), AED- induced sedation, progression of primary neoplasia. I suspect there is a combination of multiple factors. Though her seizures were difficult to control initially requiring multiple meds, her mental status is likely to improve if we can scale back her AED regimen based on her clinical course. Will have to monitor closely for re-emergence of seizureactivity. Plan: #Breakthrough Seizures #Epilepsia Partialis Continua #Acute encephalopathy Initially presented with post-ictal AMS. S/p vEEG; events well-characterized clinically and have correlated focally on EEG - seizures have now resolved. S/p Keppra load, Depakote load x2, and Vimpat load. - Senna 2 tabs at bedtime - Cont Levetiracetam 1500 mg BID - Decrease Clobazam 2.5 mg twice daily - Decrease valproic acid to 375 mg BID - VPA level 89 11/09 - Carnitine level pending - Connected with nurses, plan to closely monitor for seizure events as they can be subtle; based on number of events may further titrate clobazam dose - Contingency for acute seizure management: If seizures lasting near/> 1 minute or frequency increases to 1/h or more, will utilize Ativan as needed #Glioblastoma multiforme Diagnosed 10/09/2021 with biopsy on 10/13/2021 confirming GBM, IDH-wildtype, WHO Grade 4, MGMT promoter methylation negative. Started ELECTRONIC GLUER 11/02/21 with plan for 40Gy in 15 fractions w/ concurrent temozolomide 140mg daily. S/p 2 days of ELECTRONIC GLUER. MRI 11/04 w/ c/f enlargement or new site of disease in the right cingulate gyrus though significant decrease in edema. - Hold prior ELECTRONIC GLUER regimen; plan to resume in future as OP pending seizure control - S/p Bevacizumab 15 mg/kg x1 11/06 - Dexamethasone 6 mg BID - Appreciate neurooncology colleagues reaching out to the patient's radiation oncologist. At this point, Lizette is not well enough to return home and resume her ELECTRONIC GLUER, and would benefit from rehabilitation at a rehab facility after discharge. Decision has been made at this point to pursue rehab to help her return nearer to her baseline prior to resuming some combination of chemo and radiation therapy. An alternative would be a possible transfer to a hospital closer to the site of her radiation therapy ([place]), but our team does not think she is in good enough condition to tolerate radiation well at this time. - Will review w/ Dr. Bynum tomorrow as well as #Thrombocytopenia Of uncertain chronicity. Appears stable. PLT 110 on arrival (10/27). 80 on 11/10. - Daily CBC #SIADH #Mild chronic hyponatremia Chronic = >24hrs but this was not a problem for her prior to the last month. 11/10: Urine osm 448,Na 46.7; consistent with SIADH. Likely etiology is due to GBM. Stable ~130. - Daily BMP - Hold WATCH BAND ASSEMBLER NaCl tablets - Fluid restriction (<2L per day) - If down-trending, will consider adding Winter BID tomorrow #Hypothyroidism - WATCH BAND ASSEMBLER levothyroxine 100mcg daily ?? Diet: Regular DVT PPX: Lovenox 40mg daily Code Status: Full Discharge Plan: Uncertain at this time Jose Cortes, MS3 Pager #[phone]/Cortext 11/10/2021 7:29 Attestation statement: I was present with the medical student for the history, exam, and medical decision making documented. I have personally performed my own physical exam and medical decision making. I have verified and agree with (or, as indicated, have edited) the medical student's documentation. Jeison Wray, DO PGY-2, Neurology Pager: [phone] / [phone] nights and weekends Associated attestation - Isaías Hartman Jr., MD - 11/10/2021 1830 EDT Attestation: The Resident was present with the medical student for the history, exam, medical decision making as documented. I personally evaluated the patient and I have performed my own physical exam and medical decision making. I have verified and agree with (or, as indicated, have edited) the combined medical s tudent's/resident's documentation. slight improvement in level of alertness coinciding with cautiousreduction of valproic acid and clobazam. Isaías Hartman MD Attending Physician - Department of Neurology 11/10/2021 18:30 Jeison Wray MD - 11/09/2021 1255 EDT Neurology Progress Note Admit Date: 11/04/2021 Hospital day: LOS: 5 days Date of Service: 11/09/2021 Procedure/Diagnosis: Seizure PCP: Viki Elaine Code Status: Full Code Chief Complaint: Seizures in the setting of GBM 24 hour events: Witnessed in the room was a <10 second episode of right arm and leg stiffening Subjective: Lizette reports no seizures overnight, though she is more tired. She does not endorse episodes of arm stiffness. She has no acute complaints. She got up to the chair yesterday, but has not been walking around otherwise. Later on, her family was at the bedside and stated they noticed 1 brief episode of right arm and legstiffening that lasted less than 10 seconds. We discussed the ultimate plan for resuming her outpatient chemo therapy and radiation plan pending continued seizure control. However, we discussed that ifshaina were to go to a rehab facility she would not be able to get transport back and forth to her radiation appointments, and thus we discussed possible transfer back to [facility] which is across the street from the location of where she started RT in the last couple weeks. Review of Systems: Focused ROS obtained. Pertinent positives and negatives noted in subjective. Objective/Physical Exam: VS current: Temp: 35.9 ??C (96.6 ??F) Pulse: 69 Resp: 16 BP: 128/80 SpO2: 98 % Exam: Neurological Exam: Neurological exam: MENTAL STATUS: Drowsy, but awake and becomes alert easily. Oriented to self only. Can state her birthday. Follows simple commands. Affect normal with congruent mood. LANGUAGE: Speech clear, spontaneous, and fluent. No aphasia or dysarthria. CRANIAL NERVES: CN II: No formal visual field testing today. Acuity grossly intact, PERRLA. CN III-IV, : Pupils 4mm (R/L). EOMMs intact with no nystagmus, gaze palsy or preference. CN V: Normal masseter bulk. V1-V3 intact to LT. CN VII: Face symmetric bilaterally. Smile symmetric. Buries eyelashes and raises eyebrows symmetrically. Nasolabial folds and palpebral folds symmetric bilaterally. CN VIII: Hearing grossly intact. CN IX-X: No dysarthria. CN XI: Shoulder shrug symmetric with full strength. CN XII: Tongue midline, no deviation, atrophy, or fasciculations. MOTOR: Normal muscle bulk and tone. No pronator drift. No tremors or abnormal movements noted duringexam. Strength appears full in upper extremities extremities. Strength 4/5 in BLE proximally and distally. Very drowsy, low effort overall on individual muscle group testing today. SENSORY: Intact to light touch symmetrically in proximal/distal UE/LEs. Double simultaneous stimulation intact. REFLEXES: DTRs: Right Left Biceps 2+ 2+ Bracheoradialis 2+ 2+ Patellar 2+ 2+ Achilles 2+ 2+ Plantar responses Flexor Flexor Giang sign Absent Absent COORDINATION: Not formally assessed today due to patient's mental status. GAIT: Deferred Data Review: Labs: CBC: Lab Results Component Value Date WBC 5.90 11/09/2021 RBC 4.23 11/09/2021 HGB 14.0 11/09/2021 HCT 39.3 11/09/2021 MCV 93 11/09/2021 MCH 33.1 11/09/2021 MCHC 35.6 11/09/2021 PLT 73 (L) 11/09/2021 NEUTROABS 6.90 11/06/2021 BMP: Lab Results Component Value Date NA 131 (L) 11/09/2021 K 4.4 11/09/2021 CL 96 11/09/2021 CO2 28 11/09/2021 BUN 24 11/09/2021 CREATININE 0.47 (L) 11/09/2021 CALCIUM 8.2 (L) 11/09/2021 MG 2.0 11/04/2021 LABALBU 3.4 11/04/2021 Coagulation: Lab Results Component Value Date PROTIME 15.3 (H) 11/04/2021 LFT: Lab Results Component Value Date TBIL 0.9 11/04/2021 ALKPHOS 50 11/04/2021 AST 24 11/04/2021 ALT 37 (H) 11/04/2021 U/A: Lab Results Component Value Date CLARITYU Clear 11/04/2021 LABSPEC 1.025 11/04/2021 PHUR 8.0 11/04/2021 GLUCOSEU Negative 11/04/2021 BILIRUBINUR Negative 11/04/2021 KETONES Negative 11/04/2021 BLOODU Negative 11/04/2021 PROTEINUA Negative 11/04/2021 Imaging: MR Head WWO Contrast, 11/04/2021 IMPRESSION 1. While the size of the [...] for an enlarging/new site of multifocal disease. Procedures: EEG - updated report 11/07 Impression: This is an abnormal EEG due to moderate diffuse slowing, further embedded slowing withinthe left hemispheric breach rhythm (seen within the context of prior neurosurgical intervention), most prominent in the parasaggital leads. There are frequent likely focal clinical seizures without ictal correlate for very brief right lower extremity stiffening/raising when seen on video, which likelyrepresent focal motor seizures not captured on EEG. ?? This is the concluding segment of the recording. Assessment: Lizette Cardona is a 66 y.o. 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 Bynum of neuro-oncology as an outpatient. She presented to [facility] initially due to concern for multiple seizure-like events described as right arm and leg shaking with retained awareness. Prior to arriving at [facility] she received lorazepam 1 mg x 2 as well as 1 g of Keppra. She had been on Keppra 500 mg twice daily due to previous seizure-like activity as well, and this was increased to 1 g twice daily on admission. ?? She just recently started temozolomide + RT for treatment on 11/02 prior to this presentation. Interestingly, MRI reveals an overall decreased level of edema associated with her mass, as this can often increase in the midst of RT, though unfortunately shows disease progression and now involving the right cingulate gyrus in addition to the previously noted areas. She has had episodic tonic activity of the right upper and lower extremities which correlates on EEGw/ left hemispheric discharges. She has been loaded with both Keppra x1, Depakote x2, and lacosamidex1 and has had periodic administration of IV lorazepam for acute seizure management. Now on Keppra 1500 mg twice daily, Depakote 1000 mg twice daily, and clobazam 5 mg twice daily. Seizure frequency has been steadily decreasing, as high as 5-6/h previously, now stopped entirely. She has been more encephalopathic for the last few days. Causes are at least two-fold. She has had multiple seizures since arriving to the hospital (thought focal w/ retained awareness) Plan: Breakthrough seizures Epilepsia partialis continua Initially presented with post ictal AMS. Seizures previously captured on EEG have resolved. - S/p vEEG; events well-characterized clinically and have correlated focally on EEG - S/p Keppra load, Depakote load x2, and Vimpat load - Continue Levetiracetam to 1500 mg BID - Decrease Valproic acid to 750 mg twice daily - VPA level 89 this AM - Continue clobazam 5 mg twice daily - Based on clinical seizure activity, goal to decrease to 5 mg at bedtime only to avoid excessive daytime sedation - Connected with nurses, plan to closely monitor for seizure events as they can be subtle; based on number of events may further titrate clobazam dose -Contingency for acute seizure management: If seizures lasting near/> 1 minute or frequency increases to 1/h or more, will utilize Ativan as needed Glioblastoma multiforme Diagnosed 10/09/2021 with biopsy on 10/13/2021 confirming GBM, IDH-wildtype, WHO Grade 4, MGMT promoter methylation negative. Started ELECTRONIC GLUER 11/02/21 with plan for 40Gy in 15 fractions w/ concurrent temozolomide 140mg daily. S/p 2 days of ELECTRONIC GLUER. MRI w/ c/f enlargement or new site of disease in the right cingulate gyrus though significant decrease in edema. - Hold prior ELECTRONIC GLUER regimen; plan to resume in future as OP pending seizure control - S/p Bevacizumab 15 mg/kg x1 11/06 - Decrease dexamethasone to 6 mg BID - Appreciate neurooncology colleagues reaching out to the patient's radiation oncologist. At this point, Lizette is not well enough to return home and resume her ELECTRONIC GLUER, and would benefit from rehabilitation at a rehab facility after discharge. Decision has been made at this point to pursue rehab to help her return nearer to her baseline prior to resuming some combination of chemo and radiation therapy. An alternative would be a possible transfer to a hospital closer to the site of her radiation therapy ([place]), but our team does not think she is in good enough condition to tolerate radiation well at this time. Thrombocytopenia Of uncertain chronicity. Appears stable. - Daily CBC for right now Mild chronic hyponatremia - Hold [employer] NaCL - will discuss whether she has been taking this or not w/ family tomorrow given the ongoing hyponatremia - Daily BMP for now Hypothyroidism - [employer] levothyroxine 100mcg daily ?? Diet:Regular DVT PPX: Lovenox 40mg daily Code Status: Full Discharge Plan: Uncertain at this time Jeison Wray, DO PGY-2, Neurology Pager: [phone] / [phone] nights and weekends Patient seen and case discussed with neurology attending, Dr. Hartman. Associated attestation - Isaías Hartman Jr., MD - 11/09/20212019 EDT Attestation: I saw and evaluated the patient on 11/09/21. I agree with the findings and plan of careas documented in Dr. Wray's note. Delicate balance between seizure control vs potential excess sedation related to anti-seizure drugs and now with question of valproic acid associated encephalopathy. Ap preciate input from neuro-oncology. Isaías Hartman MD Attending Physician - Department of Neurology 11/09/2021 20:19 Lola Nunn - 11/09/2021 1126 EDT DIRECTOR OF SALES MARKETING NOTE Patient seen by PT/OT and will need DAVID placement when medically stable for dc. As per spouse's conversation with Physical therapist, requested referral be sent to facility in [facility] as its is close to home, patient [facility] and CM reached out to Darshana Quispe in admissions CM will follow Addendum: I met with patient and her family at bedside. Choice form completed and patient's family 1st choice is [facility] rehab, 2. [facility], 3. [facility] 4. [facility] rehab. We discussed the usual barriers for placement in rehab when a patient is actively seeking chemo/radiation treatments. It is very likely that if her radiation or chemo is placed on hold for her to pursue rehab - then it might be a higher chance for a facility to accept patient. I will speak to her MD team so they can connect with her radiation oncologist Dr. Mercado and inqure if this would be an option. Family requested parking passes which I have provided to them Addendum: [facility] is able to accept patient as long as she is not on active chemo or radiation while in rehab. MD team aware, neuro oncology following up and discussing with Dr Mercado. Patient also undergoing some more labs and work up. Lola Nunn, [facility] [place] [employer] [place] Pager: [phone] Jing Veronica MD - 11/09/2021 0941 EDT Neurology Oncology Consult Progress Note Admission Date: 11/04/2021 Date of Service: 11/09/2021 PCP: Viki Elaine Requesting Physician: Dr. Glover, Neurology Reason for Consult: GBM with new onset seizure 24 Hour event: -NAEO -No Seizure since 11/07 Subjective Lizette states she is feeling okay today 11/09/21. Her , brother in law , and sister who is atthe bedside feels she is still very confused and somulent. They states she did PT on 11/08 but becamefatigues quickly. Per primary team/chart review no seizure activity since 11/07 and EEG was removed on 11/07. She has no further complaints. We gathered some additional history from Lizette's family including her , sister, and [id number]. Lizette had never had a seizure prior to this admission. She started radiation therapy on 11/02 for glioblastoma and received RT on 11/02 and 11/03, and she took Temodar on 11/01, 11/02 and 11/03. She then had a focal seizure at home on 11/03. She was brought in by ambulance with what sounds like focal status. MRI brain on 11/04 showed a slight increase in tumor size but with significant decrease in edema. She did receive a dose of bevacizumab on 11/06 to help with overall edema and tumor bulk concurrentwith radiation. The team reports that she had been a little brighter and more alert on Monday 11/06 and Wednesday 11/08, but sleepier yesterday on 11/08 and 11/09. She has not had any witnessed seizures since 11/07. Her family reports that prior to this admission she was ambulatory at home and could dress herself. Review of Systems 10 point ROS negative or noncontributory unless otherwise stated above. PMH PSH History reviewed. No pertinent past medical history. History reviewed. No pertinent surgical history. Social History Family History Social History Tobacco Use ??? Smoking status: Never Smoker ??? Smokeless tobacco: Never Used Substance Use Topics ??? Alcohol use: Not on file No family history on file. [employer] Medications Current Outpatient Medications Medication Instructions ??? acetaminophen (TYLENOL) 500 mg, oral, PRN ??? calcium carbonate (CALCIUM 500 ORAL) 500 mg, oral, DAILY ??? calcium citrate 200 mg, oral, DAILY ??? dexAMETHasone (DECADRON) 4 mg, oral, 2 TIMES DAILY, Take 4mg twice a day at 6am and 6 pm ??? diphenhydramine HCl (BENADRYL ALLERGY ORAL) oral, PRN ??? docusate sodium (COLACE) 100 mg, oral, DAILY ??? levETIRAcetam (KEPPRA) 500 mg, oral, 2 TIMES DAILY ??? Levothyroxine 100 mcg, oral, DAILY ??? Multivitamins with Minerals tablet tablet 1 Tablet, oral, DAILY ??? ondansetron (ZOFRAN-ODT) 8 mg disintegrating tablet Take 30 minutes before Temodar and then every 8 hours as needed for nausea ??? pantoprazole (PROTONIX) 20 mg, oral, 2 TIMES DAILY ??? sodium chloride 1 g, oral, DAILY ??? sulfamethoxazole-trimethoprim (BACTRIM/CO-TRIMOXAZOLE DS) 800-160 mg per tablet 1 Tablet, oral, THREE TIMES WEEKLY ??? temozolomide (TEMODAR) 140 mg, oral, DAILY, Take zofran 30 minutes before temodar and take temodar 1 hour before radiation. Allergies No Known Allergies Objective Vitals Temp: [35.8 ??C (96.4 ??F)-36.5 ??C (97.7 ??F)] , Heart Rate: [65 BPM] , Pulse: [69] , Resp: [16-18], BP: (107-127)/(63-80) , SpO2: [96 %-98 %] , Numeric Pain Level (Scale 1-10): 0 Weight: Weight : 68 kg (150 lb) Body mass index is 24.96 kg/m??. Physical Exam: -Somulent -Breathing comfortably on RA Neurological exam: MENTAL STATUS: AAOx2 (person/place). Follows simple commands. LANGUAGE: Speech clear, spontaneous, and fluent. No aphasia or dysarthria. CRANIAL NERVES: CN II: PERRLA. CN III-IV, : Pupils 3 mm (R/L). CN VII: Face symmetric bilaterally. Smile symmetric. Buries eyelashes and raises eyebrows symmetrically. Nasolabial folds and palpebral folds symmetric bilaterally. CN VIII: Hearing grossly intact. CN IX-X: No dysarthria. CN XI: Shoulder shrug symmetric with full strength. CN XII: Tongue midline, no deviation, atrophy, or fasciculations. MOTOR: Normal muscle bulk and tone. No pronator drift or orbiting. No tremors or abnormal movements noted during exam. Formal strength testing as follows: UE 4+/5 strength throughout, LE 4+/5 strength throughout SENSORY: Intact to light touch symmetrically in proximal/distal UE/LEs. COORDINATION: FTN intact. GAIT: Deferred KPS: 40 Labs: reviewed and notable for: Recent Labs 11/09/21 0729 WBC 5.90 RBC 4.23 HGB 14.0 HCT 39.3 MCV 93 MCH 33.1 MCHC 35.6 PLT 73* Recent Labs 11/09/21 0729 NA 131* K 4.4 CL 96 CO2 28 BUN 24 CREATININE 0.47* CALCIUM 8.2* EEG: Findings: The monitoring period begins 11/07/2021 at 07:33 and ends at 16:05. ?? The background is continuous, reactive, mostly symmetric, and moderately organized with an anterior posterior gradient, although a previously noted posterior dominant rhythm is not well maintained. There is frequent diffuse polymophic slowing, lasting 1-5 seconds, consisting of theta-delta frequencies intermixed in the background. ?? There is further intermittent polymorphic theta-delta slowing seen over the left hemisphere near continuously, most prominent in the left parasagittal chain, embedded within a breach rhythm from patient's known biopsy site, with higher amplitudes noted and excess beta frequencies. ?? Electrographic seizures are no longer seen on EEG. There are numerous clinical push button events while the patient is awake. These clinical push button events are noted for right lower extremity raising and stiffening, which is very brief but likely represent focal seizures. There are approximately 25 clinical push button events. ?? Single lead EKG is not interpretable due to artifact. ?? Impression: This is an abnormal EEG due to moderate diffuse slowing, further embedded slowing withinthe left hemispheric breach rhythm (seen within the context of prior neurosurgical intervention), most prominent in the parasaggital leads. There are frequent likely focal clinical seizures without ictal correlate for very brief right lower extremity stiffening/raising when seen on video, which likelyrepresent focal motor seizures not captured on EEG. ?? This is the concluding segment of the recording. Imaging: reviewed and notable for MR HEAD W WO CONTRAST Result Date: 11/04/2021 1. While the size of the large [...] for an enlarging/new site of multifocal disease. Assessment Lizette Cardona is a 66 y.o. 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 Bynum??of neuro-oncology as an outpatient. Started RT 11/02/21 with plan for 40Gy in 15 fractions w/ concurrent temozolomide 140mg daily. She presented to [facility] initially due to concern for multiple seizure-like events described as right arm and leg shaking with retained awareness s/p 2 days startingCRT on 11/02/21. MRI w/ no significant change in size of mass, as well as significant associated edema,though less than noted in prior imaging. While at [facility] her [employer] dexamethasone was increased to 8mg BID, received bevicizumab 11/06, and treated for seizure with keppra load/depkote x2/lacosamidex1/prn IV lorazepam for breakthrough events. Currently she is on Keppra 1500mg BID, Depakote 1000 mg BID, clobazam 5mg BID has remained seizure free from 11/07/21 and vEEG monitoring has been discontinued. Given continued confusion this may be 2/2 postictal state vs reversible etiology such as Depakote toxicitywhich will need further evaluation. At this time given KPS 40 she will not be a candidate to continue RT, she will likely require rehab to gain function prior to resuming RT. KPS 40 Recommendations: - Hold prior ELECTRONIC GLUER regimen; plan to resume in future as OP pending seizure control - S/p Bevacizumab 10 mg/kg x1 11/06 -Decreased Dexamethasone to 6 mg BID -Monitor hyponatremia -Given pt on valproic acid monitor LFT, ammonia, and carnitine level Lauryn Salmeron MD Neurology Resident, PGY-2 Cortext or Pager [phone] after 7PM Discussed w/ Neurology Oncology attending, Dr. Howard. Attestation statement: I performed or was present during the gomez or critical portions of the visit and participated in the management of the patient. I agree with the findings and plan of care documented in the resident's/fellow's note. Please see my additional history in blue. 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 Her seizures are now well controlled but she is encephalopathyand has a decrease in functional status compared with baseline. Lizette's MRI is grossly stable. There is a slight increase in tumor size compared with the outside hospital imaging from the time of diagnosis, but a significant decrease in edema and mass effect. I suspect that her current encephalopathic state may be related to medication effect or metabolic changes,since her seizures have now been controlled for several days and she was better 1-2 days ago. -Please check LFTs, ammonia, and carnitine for any signs of Depakote toxicity that could cause a Depakote encephalopathy -If LFTs and ammonia are normal, consider decreasing clobazam from 5 mg BID to 5 mg at bedtime only,since this is the most likely one of the medications to cause drowsiness -Continue steroids--with the improvement in edema on MRI and recent dose of bevacizumab can begin totaper to 6 mg twice daily. -Please monitor and correct hyponatremia, as needed. Sodium as decreased from 137 on 10/27 to 130-131. -Disposition is uncertain at this time. I suspect that she will need subacute rehab at the time of discharge. If she does well with rehab and regains strength back to her prior baseline, then she couldresume radiation therapy with Dr. Mercado. We may consider an even shorter course of 5 fx of radiation without temozolomide (temozolomide is unlikely to benefit with unmethylated tumor). If she does not return to baseline but is well enough to get home, then the disposition may be rehab with plan to go onto home hospice. I have not discussed this yet with the patient or family, but the family has been clear that her main goal is to try to walk, and so rehab would be appropriate -Discussed with Dr. yBnum and Dr. Mercado. Jing Howard MD Heidi Hermosillo, OTR-L - 11/08/2021 2116 EDT [facility] Rehabilitation Therapy Acute Therapies [facility] Occupational Therapy Initial Evaluation Note Date of Service: 11/08/2021 Reason for Referral: Evaluate and treat Precautions: Activity as tolerated SUBJECTIVE: I am doing fine, who are you? Pain: No pain reported during the interview. OBJECTIVE: Patient Profile: Lizette Cardona is a Left hand dominant 66 y.o. female admitted on 11/04/2021 secondary to Seizure ([facility]) (HCC) [R56.9] Glioblastoma (HCC) [C71.9] The patient lives at [address] [place] [address] History of Present Illness/Injury: Per HPI, Lizette Cardona is a 66 y.o. female with a PMHx of recently diagnosed glioblastoma seen by , and possible thyroid dysfunction who presents from [facility] due to seizure. Per chart review the patient was recently started on chemotherapy to treat her glioblastoma and had radiation and chemotherapy last week and possibly chemotherapytoday. Status post chemotherapy today she had a seizure and at the outside hospital she was given 2 doses of 1 mg Ativan and 1000 mg of Keppra. Per chart review the patient is is a poor historian and much of her information can be provided by her for collateral. ?? Upon interview the patient does not remember what happened today, and she is mildly confused. She denies any fevers, chills, recent infection, cough, shortness of breath, chest pain, abdominal pain, nausea, vomiting, diarrhea, urinary frequency, dysuria, urinary urgency, dizziness, headache, or weakness. ?? In the ED she was found to be afebrile, VSS, with mild hyponatremia of [address] head at that outside hospital had no acute findings per ED provider. Documentation from outside hospital was not available for review. Living Environment/Home Set-up: Patient lives with spouse in a one level House. Bathroom is downstairs with a Walk in shower. Caregiver Support: Per spouse pt has full-time supervision assist available Equipment Available: Rolling walker Prior Level of Function: Activities of daily living: Per spouse, pt was completely independent W[employer]ER Instrumental activities of daily living: Independent Work/Leisure: Retired Medical/Surgical History: CURRENT: The patient has Seizure (HCC-CMS) (HCC) and Glioblastoma (HCC) on their problem list. PAST: The patient has no past medical history on file. SURGICAL: The patient has no past surgical history on file. Medical history reviewed. Medications: Medications reviewed. Body Functions and Performance Skills: Cardiovascular/Respiratory Systems Function: Vital Signs: Patient vital signs stable and not symptomatic during assessment/treatment Mental Functions: Arousal:Lethargic Orientation:Oriented to person Place - Pt states she is in [facility], - 1993, Situation - I don't know Following instructions: Follows one step commands with repetitions. Demonstrates inconsistency in follow the commands Behavioral characteristics: Pt was cooperative Sensory Functions: Hearing:Intact to conversational tones Touch:Not evaluated Vision:Current complaints:No problems reported Neuro musculoskeletal and Movement Related Functions: Range of Motion: Within functional limits Strength Manual muscle testing not formally performed, strength observed to be > 3/5 with gross movement Skin and Related Structure Functions: No problem noted Areas of Occupation and Performance Skills: Basic Activities of Daily Living: Feeding: Needs max A to feed Grooming: Needed min contact assist, max simple cueing required to continue engagement in task Mobility: Not evaluated due to pt unable to consistently follow commands and pt was lethargic throughout the session Instrumental Activities of Daily Living: Not evaluated Informed Consent: The patient consented to occupational therapy evaluation. The patient agrees to and understands the occupational therapy treatment plan and goals Interventions completed today: Occupational therapy today at 0940. Total treatment time: 15 minutes. Timed code treatment minutes: 0 Intervention included: No interventions today Patient/Family Education: Topic: Compensatory strategies Cognitive strategies Role of OT D/C planning Learner: patient and spouse Method: verbal Barriers to Learning: cognitive deficits Outcome: reinforcement needed Team Communication: Notified:Nurse By:Face to face communication When:Prior to therapy After therapy About:Readiness for therapy and Response to therapy Patient status at end of therapy session: The patient was left in:Recliner chair With the: Call beavers in reach, Chair alarm on and spouse in room ASSESSMENT: Patient was appropriate for skilled [facility] Therapy impairments: Cognition, Activity tolerance, Balance, Motor control and Communication These impairments impact the following areas of occupation: Self care and Functional mobility. Occupational Therapy is medically necessary to: improve safety and independence and provide education and training to optimize their participation in ADl's. Current status compared to baseline level of function: Below prior level of function. Discharge recommendations: Pt demonstrates drowsiness, following simple commands with repetitions inconsistently. Based on presentation pt is not appropriate to dc home. Dc recommendations TBD pending clinical & functional progress and improved participation See plan below for applicable equipment and follow up service recommendations. GOALS: Short Term Goals: ?? N/A Senior Care Goals: 1-3 weeks ?? Patient will be: Min contact assist with Self feeding. ?? Patient will be: Min contact assist with UE dressing and LE dressing. ?? Patient will be: Min contact assist with Toileting. ?? Pt will follow 1 step simple commands consistently. PLAN: Intervention: Occupational therapy will be provided by occupational therapist when medically appropriate. Frequency: daily for 1-2 times per week as determined by patient's medical stability, tolerance to activity and progression of functional activities. Intensity: 15-60 minutes per session, Duration: During hospit alization, Interventions may include:Self care/home management, Therapeutic exercises, Therapeutic activities , Cognitive function intervention and Neuromuscular re-education Further Data: Continued evaluation Patient/Family Education: Adaptive ADL's, Adaptive equipment, Discharge planning, Precautions, Role of OT and Safety Recommended Discharge Destination: To be determined Recommended Discharge Services: To be determined Recommended Discharge Equipment: To be determined Pager: [phone] LINDSEY Desai, 11/08/2021, 21:17 Latoya Mendoza, PT - 11/08/2021 4768 EDT [facility] Rehabilitation Therapy Acute Therapies [facility] Physical Therapy Initial Evaluation Note Date of Service: 11/08/2021 Reason for Referral: Priority for discharge Precautions: Activity as tolerated SUBJECTIVE: I will try. Pain: No pain reported during the interview. OBJECTIVE: Reason for hospitalization: ?? Lizette Cardona??is a 66 y.o.??female??with a PMHx significant for recently diagnosed glioblastoma and possible thyroid dysfunction who presents from an [facility] for two hours of focal seizure 11/03 (described as right arm and leg shaking with preserved awareness) in the setting of radiation initiation 11/02. She was given ativan 1mg which aborted the movements, and this dose was repeated when movements started again at [facility], then keppra was increased to 1g BID. She was monitored on cvEEG with no discharges. Increased dexamethasone to 8mg BID. MRI brain w/wo contrast showed decreased edema of the heterogenously enhancing mess, but increase in size of cortical expansion of the right cingulate gyrus concerning for new site of multifocal disease. We will continue EEG for [address] Bynum will see patient tomorrow for further recommendations regarding next steps. ?? PatientProfile: Patient is a 66 y.o. female admitted on 11/04/2021 secondary to Seizure (HCC-CMS) (HCC) [R56.9] Glioblastoma (HCC) [C71.9] The patient lives at [address] [place] [address] Home environment Lives:with family Caregiver Support: Supervision Equipment Available: None Home Environment: house Home Layout: One story. Entry stairs No stairs Prior Level of Function: Independent Services prior to admission: cancer treatment Work/Leisure: Retired Medical/Surgical History: CURRENT: The patient has Seizure (HCC-CMS) (HCC) and Glioblastoma (HCC) on their problem list. PAST:The patient has no past medical history on file. SURGICAL: The patient has no past surgical history on file. Medications: Medications reviewed Arousal, Attention, and Cognition: Orientation: Somnolent. Able to follow simple commands with extra time Cardiopulmonary: Vital Signs: Vital signs stable with evaluation Integumentary/Anthropometric Characteristics: Palpation/Observation: gross skin assessment with no significant findings to areas without clothing/without dressings Posture: Limited evaluation due to limited mobility Range of Motion and Joint Integrity: Within normal limits as demonstrated functionally. Muscle Performance: Manual muscle testing not formally performed in order to prioritize functional mobility. Strength observed to be at least 3/5 with gross movement except: Right upper extremity: 3/5 in shoulder and elbow. wrist and hand weakness noted Sensation, Reflexes, and Nerve Integrity: Patient unable to participate in formal sensory testing due to level of arousal and unreliable reporting Neuromotor Function/Development: decreased strength and coordination in right UE and LE Balance, Mobility, and Gait: Balance: N/E due to evaluation limited to bedside examination Mobility: Patient received seated in recliner having been assisted there via alicia stedy by nursing. Patient required moderate assist of one to reach forward to grasp cross bar of lift. Unable to initiate stand with one person assist due to decreased initiation/motor planning Gait: Not evaluated as patient unable to progress to ambulatory level today. Self-Care, Home Management, Work, and Leisure: N/E at this time Outcomes: Please refer to individual sections for any outcome measures that were performed Informed Consent: The patient consented to the physical therapy evaluation. The patient agrees to and understands the physical therapy treatment plan and goals. Interventions Completed Today: Physical Therapy today at: 1130 Total treatment time: 20 minutes. Timed code treatment minutes: 8 Intervention included: Therapeutic Activity: Seated mobility including anterior/poterior weight shift. Anterior reach with left hand to touch a target - patient unable to locate the target on her left orright Apraxia when requested to extend knee in sitting and flexing hip in sitting. Patient/Family Education: Topic: Discharge planning Exercise Role of therapy Safety Transfers Learner: patient and family Method: verbal Barriers to Learning: somnolent/level of arousal Outcome: requires assist and needs practice Team Communication: Nurse Face to face communication After therapy session Performance during Physical Therapy and recommendations for mobility with nursing, Discharge recommendations and Mobility recommendations ASSESSMENT: Physical Therapy Diagnosis: This patient presents with a Physical Therapy diagnosis of :Impaired gait, Impaired mobility and Impaired movement system impacted by impairments of: attention, arousal, coordination, hemiplegia, motorcontrol, motor planning and muscle strength Physical Therapy Prognosis: Physical therapy is medically necessary to: address these body structure/function impairments, activity limitations, and participation restrictions and establish and progress mobility/exercise and provide recommendations for staff and safe discharge planning Current status compared to baseline level of function: below prior level of function Anticipated rate of progress: Slow Patient is a 66 year old woman who prior to experiencing these seizures had been mobilizing at home independently with family support. Today she was limited by a combination of decreased level of arousal, right sided weakness and apraxia. I anticipate progress will be slow but steady. Her is in agreement that she will need DAVID to regain optimal functional mobility. He prefers this be closer to [facility] where she is receiving her cancer treatment. Short-Term Goals: N/A ?? Long-Term Goals: 1-3 weeks ??? The patient will be able to perform bed mobility with supervision demonstrating appropriate sequencing/motor planning. ??? The patient will be able to perform transfers with supervision while demonstrating an effective strategy for recovery of loss of balance. ??? The patient will be able to ambulate with minimal contact assistance with no loss of balance on level surfaces 150 feet with/without assistive device as needed. ??? The patient will be able to consistently attend to her right side ??? The patient and/or caregiver will be aware of the PT recommendations provided and verbalize and/or demonstrate understanding of the recommendations. PLAN: Physical therapy will be provided by physical therapist when medically appropriate. Frequency: dailyfor 2-3 times per week as determined by patient's medical stability, tolerance to activity and progression of functional activities. Intensity: 15-60 minutes per session, Duration: During hospitalization, Interventions may include:Therapeutic exercises, Therapeutic activities and Gait training, Patient/family education: Discharge planning, Equipment, Family training as appropriate, Precautions, Recommendations, Role of physical therapy/rehabilitation, Safety, Further Data: mobility progression Recommended Discharge Destination: Sub-acute rehabilitation Recommended Discharge Services: Physical therapy at rehabilitation facility Recommended Equipment Needs: No equipment necessary Other recommendations: No other consults recommended at this time Pager: [phone] LATOYA MENDOZA PT 11/08/2021 13:38 Latoya Mendoza, PT - 11/08/2021 1336 EDT [facility] Rehabilitation Therapy [facility] Physical Therapy Contact Note Date of Service: 11/08/2021 Evaluation complete. Patient significantly below her functional baseline. At this time, recommend discharge disposition to [facility] unless her functional capacity drastically improves. Family in agreement and would like to pursue facilities in [facility] as that is close to where she is receiving her cancer treatment. Full note to follow. LATOYA MENDOZA, PT 11/08/2021 13:36 Heidi mclaughlin OTR-L - 11/08/2021 1116 EDT [facility] Rehabilitation Therapy [facility] Occupational Therapy Contact Note Date of Service: 11/08/2021 OT orders received and eval completed. Pt demonstrates drowsiness, following simple commands with repetitions inconsistently. Based on presentation pt is not appropriate to dc home. Dc recommendations TBD pending clinical & functional progress and improved participation. Full note to follow. LINDSEY Desai, 11/08/2021, 11:16 Shashank Danielle MD - 11/08/2021 0433 EDT Neurology Progress Note Admit Date: 11/04/2021 Hospital day: LOS: 4 days Date of Service: 11/08/2021 Procedure/Diagnosis: Seizure PCP: Viki Elaine Code Status: Full Code Chief Complaint: Seizures in the setting of GBM 24 hour events: Witnessed in the room was a less than 5 second episode of right arm shaking Subjective: Lizette reports no seizures overnight, though she is more tired. She does not endorse episodes of arm stiffness. She has no acute complaints. Current Facility-Administered Medications Medication Route Frequency ??? acetaminophen (TYLENOL) tablet 500 mg oral Q4H PRN ??? cloBAZam (ONFI) tablet 5 mg oral BID ??? dexAMETHasone (DECADRON) tablet 8 mg oral BID ??? diphenhydrAMINE (BENADRYL) injection 50 mg intravenous PRN ??? enoxaparin (LOVENOX) injection 40 mg subcutaneous DAILY ??? EPINEPHrine (ADRENALIN) injection 0.3 mg intramuscular PRN ??? levETIRAcetam (KEPPRA) 1,500 mg in sodium chloride (NS) 0.9 % 100 mL IVPB intravenous Q12H ??? levothyroxine (SYNTHROID) tablet 100 mcg oral DAILY BEFORE BREAKFAST ??? lidocaine (PF) 10 mg/mL (1 %) injection 2 mg intradermal PRN ??? lidocaine (PF) 10 mg/mL (1 %) injection 2 mL intradermal PRN ??? methylPREDNISolone sod suc(PF) (SOLU-MEDROL) injection 100 mg intravenous PRN ??? ondansetron (ZOFRAN-ODT) disintegrating tablet 8 mg oral Q8H PRN ??? pantoprazole (PROTONIX) tablet 20 mg oral BID ??? polyethylene glycol 3350 (MIRALAX) packet 17 g oral Daily PRN ??? senna (SENOKOT) tablet 2 Tablet oral QHS ??? sodium chloride 0.9 % (flush) flush 10 mL intravenous PRN ??? sodium chloride 0.9 % (flush) flush 10 mL intercatheter PRN ??? sodium chloride 0.9 % (flush) flush 20 mL intercatheter PRN ??? valproic acid (DEPAKENE) capsule 1,000 mg oral BID Review of Systems: Focused ROS obtained. Pertinent positives and negatives noted in subjective. Objective/Physical Exam: VS current: Temp: 36.5 ??C (97.7 ??F) Pulse: 87 Resp: 18 BP: 114/76 SpO2: 94 % Exam: Neurological Exam: Neurological exam: MENTAL STATUS: Drowsy, but awake and becomes alert easily. Oriented to self only. Follows simple commands. Affect normal with congruent mood. LANGUAGE: Speech clear, spontaneous, and fluent. No aphasia or dysarthria. CRANIAL NERVES: CN II: No formal visual field testing today. Acuity grossly intact, PERRLA. CN III-IV, : Pupils 4mm (R/L). EOMMs intact with no nystagmus, gaze palsy or preference. CN V: Normal masseter bulk. V1-V3 intact to LT. CN VII: Face symmetric bilaterally. Smile symmetric. Buries eyelashes and raises eyebrows symmetrically. Nasolabial folds and palpebral folds symmetric bilaterally. CN VIII: Hearing grossly intact. CN IX-X: No dysarthria. CN XI: Shoulder shrug symmetric with full strength. CN XII: Tongue midline, no deviation, atrophy, or fasciculations. MOTOR: Normal muscle bulk and tone. No pronator drift. No tremors or abnormal movements noted duringexam. Strength appears full in upper extremities extremities. Symmetric 4/5 strength in the bilateral lower extremities. However complete assessment of all muscle groups not completed today due to patient's level of drowsiness. SENSORY: Intact to light touch symmetrically in proximal/distal UE/LEs. Double simultaneous stimulation intact. REFLEXES: DTRs: Right Left Biceps 2+ 2+ Bracheoradialis 2+ 2+ Patellar 2+ 2+ Achilles 2+ 2+ Plantar responses Flexor Flexor Giang sign Absent Absent COORDINATION: Not formally assessed today due to patient's mental status. GAIT: Deferred Data Review: Labs: CBC: Lab Results Component Value Date WBC 7.42 11/07/2021 RBC 4.52 11/07/2021 HGB 14.9 11/07/2021 HCT 43.1 11/07/2021 MCV 95 11/07/2021 MCH 33.0 11/07/2021 MCHC 34.6 11/07/2021 PLT 95 (L) 11/07/2021 NEUTROABS 6.90 11/06/2021 BMP: Lab Results Component Value Date NA 130 (L) 11/07/2021 K 4.1 11/07/2021 CL 98 11/07/2021 CO2 22 11/07/2021 BUN 21 11/07/2021 CREATININE 0.48 (L) 11/07/2021 CALCIUM 8.3 (L) 11/07/2021 MG 2.0 11/04/2021 LABALBU 3.4 11/04/2021 Coagulation: Lab Results Component Value Date PROTIME 15.3 (H) 11/04/2021 LFT: Lab Results Component Value Date TBIL 0.9 11/04/2021 ALKPHOS 50 11/04/2021 AST 24 11/04/2021 ALT 37 (H) 11/04/2021 U/A: Lab Results Component Value Date CLARITYU Clear 11/04/2021 LABSPEC 1.025 11/04/2021 PHUR 8.0 11/04/2021 GLUCOSEU Negative 11/04/2021 BILIRUBINUR Negative 11/04/2021 KETONES Negative 11/04/2021 BLOODU Negative 11/04/2021 PROTEINUA Negative 11/04/2021 Imaging: MR Head WWO Contrast, 11/04/2021 IMPRESSION 1. While the size of the [...] for an enlarging/new site of multifocal disease. Procedures: EEG - updated report 11/07 Impression: This is an abnormal EEG due to moderate diffuse slowing, further embedded slowing withinthe left hemispheric breach rhythm (seen within the context of prior neurosurgical intervention), most prominent in the parasaggital leads. There are frequent likely focal clinical seizures without ictal correlate for very brief right lower extremity stiffening/raising when seen on video, which likelyrepresent focal motor seizures not captured on EEG. ?? This is the concluding segment of the recording. Assessment: Lizette Cardona is a 66 y.o. 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 Bynum of neuro-oncology as an outpatient. She presented to [facility] initially due to concern for multiple seizure-like events described as right arm and leg shaking with retained awareness. Prior to arriving at [facility] she received lorazepam 1 mg x 2 as well as 1 g of Keppra. She had been on Keppra 500 mg twice daily due to previous seizure-like activity as well, and this was increased to 1 g twice daily on admission. ?? She just recently started temozolomide + RT for treatment on 11/02 prior to this presentation. Interestingly, MRI reveals an overall decreased level of edema associated with her mass, as this can often increase in the midst of RT, though unfortunately shows disease progression and now involving the right cingulate gyrus in addition to the previously noted areas. She has had episodic tonic activity of the right upper and lower extremities which correlates on EEGw/ left hemispheric discharges. She has been loaded with both Keppra x1, Depakote x2, and lacosamidex1 and has had periodic administration of IV lorazepam for acute seizure management. Now on Keppra 1500 mg twice daily, Depakote 1000 mg twice daily, and clobazam 5 mg twice daily. States frequency of her seizures has been steadily decreasing, as high as 5-6/h previously, now down to 1 every few hours. Plan: Breakthrough seizures Initially presented with post ictal AMS, now resolved. Continuing to have seizure events captured onvEEG, described above. Suspect edema and mass effect 2/ radiation therapy may be causing these seizure eventswith apparent left hemispheric focus on EEG. -Discontinue vEEG monitoring today given that her events are well-characterized clinically and have correlated focally on EEG - S/p Keppra load, Depakote load x2, and Vimpat load - Continue Keppra to 1500 mg BID - Continue Depakote 1000 mg twice daily - Continue clobazam 5 mg twice daily - Connected with nurses, plan to closely monitor for seizure events as they can be subtle; based on number of events may further titrate clobazam dose -Contingency for acute seizure management: If seizures lasting near/> 1 minute or frequency increases to 1/h or more, will utilize Ativan as needed Glioblastoma multiforme Diagnosed 10/09/2021 with biopsy on 10/13/2021 confirming GBM, IDH-wildtype, WHO Grade 4, MGMT promoter methylation negative. Started ELECTRONIC GLUER 11/02/21 with plan for 40Gy in 15 fractions w/ concurrent temozolomide 140mg daily. S/p 2 days of ELECTRONIC GLUER. unfortunately w/ MRI w/ evidence concerning for enlargement or newsite of disease in the right cingulate gyrus, as well as significant associated edema, though less than noted in prior imaging. - Hold prior ELECTRONIC GLUER regimen; plan to resume in future as OP pending seizure control - S/p Bevacizumab 15 mg/kg x1 11/06 Thrombocytopenia Of uncertain chronicity. Appears stable. 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 Diet:Regular DVT PPX: Lovenox 40mg daily Code Status: Full Discharge Plan: Uncertain at this time Shashank Wilks MD Neurology, PGY-2, pager [phone] Patient seen and case discussed with neurology attending, Dr. Glover. Associated attestation - Jackelin Glover MD - 11/08/2021 0375 EDT Attestation statement: I performed or was present during the gomez or critical portions of the visit and participated in the management of the patient. I agree with the findings and plan of care documented in the resident's/fellow's note. Lizette Cardona is a 66 y.o. female with a PMHx significant for recently diagnosed glioblastoma and possible thyroid dysfunction who presented from an [facility] for two hours of focal seizure 11/03 (tonic flexion of both arms, vocalization, dystonic turn of head/neck to the left, right leg a bduction) in the setting of radiation initiation 11/02. MRI brain w/wo contrast showed decreased edema of the heterogenously enhancing mess, but increase insize of cortical expansion of the right cingulate gyrus concerning for new site of multifocal disease. Dexamethasone was increased to 8mg BID. She received bevicizumab 11/06. She has been loaded with Keppra, Depakote x2, and lacosamide x1, along with PRN IV lorazepam for breakthrough events. Currently on Keppra 1500mg BID, Depakote 1000 mg BID, clobazam 5mg BID. She had no further events yesterday, but I did see one short (<10 second) event this morning before Onfi. She was quite drowsy on exam today, wakens to name and can follow simple commands but cannot participate in conversation. Move all ex tremities symmetrically but cannot test confrontational strength. There were no further events reported (her and brother in law at bedside) by 11 am. Will continue current regimen, and monitor her level of alertness. Ideally she would be able to go to [facility] and be transferred to and from radiation at [facility] with Dr. Mercado. Continue to hold temozolomide and bactrim at discharge per Dr. Bynum. Jackelin Glover MD Neurology AttendingJeison Wray MD - 11/07/2021 7614 EDT Neurology Progress Note Admit Date: 11/04/2021 Hospital day: LOS: 3 days Date of Service: 11/07/2021 Procedure/Diagnosis: Seizure PCP: Viki Elaine Code Status: Full Code Chief Complaint: Seizures in the setting of GBM Subjective: Lizette was quite sleepy this morning when I saw her but told me she was doing okay. We reviewed her medications and the goal to suppress her seizure activity. She denied any headache or vision changes to me this morning. She otherwise did not have any specific complaints and asked how I was doing. Had a few conversations with her family who was present at the bedside throughout the day. They astutely expressed concern for seizure activity earlier on in the day as they noted seeing her characteristic right-sided stiffening, but not nearly as much as on previous days. Lizette's also raised the point that they recently filled out advance directive documents with their PCP, but he does not recall exactly what was determined with this. He attempted to have this faxed over from their office yesterday but called too late in the day. He showed me a picture of it on his phone and it appeared consistent with life- sustaining measures, but just a trial of intubation. Current Facility-Administered Medications Medication Route Frequency ??? acetaminophen (TYLENOL) tablet 500 mg oral Q4H PRN ??? cloBAZam (ONFI) tablet 5 mg oral BID ??? dexAMETHasone (DECADRON) tablet 8 mg oral BID ??? diphenhydrAMINE (BENADRYL) injection 50 mg intravenous PRN ??? enoxaparin (LOVENOX) injection 40 mg subcutaneous DAILY ??? EPINEPHrine (ADRENALIN) injection 0.3 mg intramuscular PRN ??? levETIRAcetam (KEPPRA) 1,500 mg in sodium chloride (NS) 0.9 % 100 mL IVPB intravenous Q12H ??? levothyroxine (SYNTHROID) tablet 100 mcg oral DAILY BEFORE BREAKFAST ??? lidocaine (PF) 10 mg/mL (1 %) injection 2 mg intradermal PRN ??? lidocaine (PF) 10 mg/mL (1 %) injection 2 mL intradermal PRN ??? methylPREDNISolone sod suc(PF) (SOLU-MEDROL) injection 100 mg intravenous PRN ??? ondansetron (ZOFRAN-ODT) disintegrating tablet 8 mg oral Q8H PRN ??? pantoprazole (PROTONIX) tablet 20 mg oral BID ??? polyethylene glycol 3350 (MIRALAX) packet 17 g oral Daily PRN ??? senna (SENOKOT) tablet 2 Tablet oral QHS ??? sodium chloride 0.9 % (flush) flush 10 mL intravenous PRN ??? sodium chloride 0.9 % (flush) flush 10 mL intercatheter PRN ??? sodium chloride 0.9 % (flush) flush 20 mL intercatheter PRN ??? valproic acid (DEPAKENE) capsule 1,000 mg oral BID Review of Systems: Focused ROS obtained. Pertinent positives and negatives noted in subjective. Objective/Physical Exam: VS current: Temp: 36.2 ??C (97.2 ??F) Pulse: 87 Resp: 18 BP: 136/75 SpO2: 97 % Exam: Neurological Exam: Neurological exam: MENTAL STATUS: Drowsy, but awake and becomes alert easily. Follows simple commands. Affect normal with congruent mood. LANGUAGE: Speech clear, spontaneous, and fluent. No aphasia or dysarthria. She has a drop in volume near the end of her sentences reflective of her drowsiness (see received Ativan ~3 hours before I sawher). CRANIAL NERVES: CN II: No formal visual field testing today. Acuity grossly intact, PERRLA. CN III-IV, : Pupils 4mm (R/L). EOMMs intact with no nystagmus, gaze palsy or preference. CN V: Normal masseter bulk. V1-V3 intact to LT. CN VII: Face symmetric bilaterally. Smile symmetric. Buries eyelashes and raises eyebrows symmetrically. Nasolabial folds and palpebral folds symmetric bilaterally. CN VIII: Hearing grossly intact. CN IX-X: No dysarthria. CN XI: Shoulder shrug symmetric with full strength. CN XII: Tongue midline, no deviation, atrophy, or fasciculations. MOTOR: Normal muscle bulk and tone. No pronator drift. No tremors or abnormal movements noted duringexam. Strength appears full in upper extremities extremities. Symmetric 4/5 strength in the bilateral lower extremities. However complete assessment of all muscle groups not completed today due to patient's level of drowsiness s/p Ativan. SENSORY: Intact to light touch symmetrically in proximal/distal UE/LEs. Double simultaneous stimulation intact. REFLEXES: DTRs: Right Left Biceps 2+ 2+ Bracheoradialis 2+ 2+ Patellar 2+ 2+ Achilles 2+ 2+ Plantar responses Flexor Flexor Giang sign Absent Absent COORDINATION: Not formally assessed today due to patient's mental status. GAIT: Deferred Data Review: I have independently visualized the Labs: CBC: Lab Results Component Value Date WBC 7.42 11/07/2021 RBC 4.52 11/07/2021 HGB 14.9 11/07/2021 HCT 43.1 11/07/2021 MCV 95 11/07/2021 MCH 33.0 11/07/2021 MCHC 34.6 11/07/2021 PLT 95 (L) 11/07/2021 NEUTROABS 6.90 11/06/2021 BMP: Lab Results Component Value Date NA 130 (L) 11/07/2021 K 4.1 11/07/2021 CL 98 11/07/2021 CO2 22 11/07/2021 BUN 21 11/07/2021 CREATININE 0.48 (L) 11/07/2021 CALCIUM 8.3 (L) 11/07/2021 MG 2.0 11/04/2021 LABALBU 3.4 11/04/2021 Coagulation: Lab Results Component Value Date PROTIME 15.3 (H) 11/04/2021 LFT: Lab Results Component Value Date TBIL 0.9 11/04/2021 ALKPHOS 50 11/04/2021 AST 24 11/04/2021 ALT 37 (H) 11/04/2021 U/A: Lab Results Component Value Date CLARITYU Clear 11/04/2021 LABSPEC 1.025 11/04/2021 PHUR 8.0 11/04/2021 GLUCOSEU Negative 11/04/2021 BILIRUBINUR Negative 11/04/2021 KETONES Negative 11/04/2021 BLOODU Negative 11/04/2021 PROTEINUA Negative 11/04/2021 Imaging: MR Head WWO Contrast, 11/04/2021 IMPRESSION 1. While the size of the [...] for an enlarging/new site of multifocal disease. Procedures: EEG - updated report 11/07 Impression: This is an abnormal EEG due to moderate diffuse slowing, further embedded slowing withinthe left hemispheric breach rhythm (seen within the context of prior neurosurgical intervention), most prominent in the parasaggital leads. There are frequent likely focal clinical seizures without ictal correlate for very brief right lower extremity stiffening/raising when seen on video, which likelyrepresent focal motor seizures not captured on EEG. ?? This is the concluding segment of the recording. Assessment: Lizette Cardona is a 66 y.o. 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 Bynum of neuro-oncology as an outpatient. She presented to [facility] initially due to concern for multiple seizure-like events described as right arm and leg shaking with retained awareness. Prior to arriving at [facility] she received lorazepam 1 mg x 2 as well as 1 g of Keppra. She had been on Keppra 500 mg twice daily due to previous seizure-like activity as well, and this was increased to 1 g twice daily on admission. ?? She just recently started temozolomide + RT for treatment on 11/02 prior to this presentation. Interestingly, MRI reveals an overall decreased level of edema associated with her mass, as this can often increase in the midst of RT, though unfortunately shows disease progression and now involving the right cingulate gyrus in addition to the previously noted areas. She has had episodic tonic activity of the right upper and lower extremities which correlates on EEGw/ left hemispheric discharges. She has been loaded with both Keppra x1, Depakote x2, and lacosamidex1 and has had periodic administration of IV lorazepam for acute seizure management. Now on Keppra 1500 mg twice daily, Depakote 1000 mg twice daily, and clobazam 5 mg twice daily. States frequency of her seizures has been steadily decreasing, as high as 5-6/h previously, now down to 1 every few hours. Plan: Breakthrough seizures Initially presented with post ictal AMS, now resolved. Continuing to have seizure events captured onvEEG, described above. Suspect edema and mass effect 2/2 radiation therapy may be causing these seizure eventswith apparent left hemispheric focus on EEG. -Discontinue vEEG monitoring today given that her events are well-characterized clinically and have correlated focally on EEG - S/p Keppra load, Depakote load x2, and Vimpat load - Continue Keppra to 1500 mg BID - Continue Depakote 1000 mg twice daily - Continue clobazam 5 mg twice daily -Contingency for acute seizure management: If seizures lasting near/> 1 minute or frequency increases to 1/h or more, will utilize Ativan as needed Glioblastoma multiforme Diagnosed 10/09/2021 with biopsy on 10/13/2021 confirming GBM, IDH-wildtype, WHO Grade 4, MGMT promoter methylation negative. Started ELECTRONIC GLUER 11/02/21 with plan for 40Gy in 15 fractions w/ concurrent temozolomide 140mg daily. S/p 2 days of ELECTRONIC GLUER. unfortunately w/ MRI w/ evidence concerning for enlargement or newsite of disease in the right cingulate gyrus, as well as significant associated edema, though less than noted in prior imaging. - Hold prior ELECTRONIC GLUER regimen; plan to resume in future as OP pending seizure control - S/p Bevacizumab 15 mg/kg x1 11/06 Thrombocytopenia Of uncertain chronicity. Appears stable. 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 Diet:Regular DVT PPX: Lovenox 40mg daily Code Status: Full Discharge Plan: Uncertain at this time Jeison Wray DO PGY-2, Neurology Pager: [phone] nights and weekends Patient seen and case discussed with neuro-oncology attending, Dr. Glover. Associated attestation - Jackelin Glover MD - 11/07/20212058 EDT Attestation statement: I performed or was present during the gomez or critical portions of the visit and participated in the management of the patient. I agree with the findings and plan of care documented in the resident's/fellow's note. Lizette Cardona is a 66 y.o. female with a PMHx significant for recently diagnosed glioblastoma and possible thyroid dysfunction who presented from [facility] for two hours of focal seizure 11/03 (tonic flexion of both arms, vocalization, dystonic turn of head/neck to the left, right leg a bduction) in the setting of radiation initiation 11/02. MRI brain w/wo contrast showed decreased edema of the heterogenously enhancing mess, but increase insize of cortical expansion of the right cingulate gyrus concerning for new site of multifocal disease. Dexamethasone was increased to 8mg BID. She received bevicizumab 11/06. She has been loaded with Keppra, Depakote x2, and lacosamide x1, along with PRN IV lorazepam for breakthrough events. Currently on Keppra 1500mg BID, Depakote 1000 mg BID, clobazam 5mg BID. Will d/c EEG today and continue to monitor clinically. When seizures are controlled, she will plan to d/c home with her to resume radiation with Dr. Mercado at [facility]. Continue to hold temozolomide and bactrim at discharge per Dr. Bynum. Jackelin Glover MD Neurology Attending Lola Nunn - 11/06/2021 1518 EDT Initial Case Management/Social Work Assessment and Discharge Plan/Readmission Risk Assessment REASON FOR ADMISSION: Seizure (HCC-CMS) ([facility]) Patient understands reason for admission: Yes PATIENT INFO VERIFIED: PCP Type of housing (single family, condo, apartment, halfway, single room occupancy, [facility] funded hotel room, group long term) - [facility] Who does the patient live with? Lives with spouse Does the patient have access to their own bedroom/bathroom/kitchen - or is it shared with others? Shared with spouse Name of housing complex (ex [facility], [facility], etc)- n/a Housing Authority/Managing Organization - n/a Community Care Providers (caseworker, [facility] nurse, etc) name and contact information- n/a LIVING ARRANGEMENTS AND ACCESSIBILITY ISSUES: Living Arrangements: Private residence, Spouse / significant other Levels: 2 Stairs to enter: 2 Handicap access: Railings into home Bathroom located on bedroom level?: Yes What in home social supports are available to the patient? Family member(s), Spouse / significant other, Home care staff Is 30/08 care available? Yes ADVANCED DIRECTIVES, POA &/or COLST IN PLACE: Healthcare Directive: Yes, patient has advance directive for healthcare treatment Type of Healthcare Directive: Durable power of privacy attorney for health care Copy in Chart: Yes, new copy in paper chart @ [facility] DIRECTIVES FOR FINANCES: TRANSPORTATION: Transportation: Family Patient expects to be discharged to: TBD CULTURAL, BAHAI and/or LANGUAGE factors affecting health care/discharge planning: Spiritual/Cultural Requests: Home Performance Consultant support Insurance Information: Medicare A/B BCBS [place] Blue 65 Nutrition: DISCHARGE RISK ASSESSMENT: Requires assistance with ADLs/IADLs;End stage condition;Polypharmacy, > 7 medications Total # selected above: Score of 2 - 4: This patient is at MODERATE RISK for re-hospitalization Tentative plan to address the risk of re-hospitalization for those at HIGH MODERATE RISK: Bring riskfactors to attention of team to be addressed RAPT TOOL: Age: 66-73 Gender: Female Ambulation distance: 1-2 blocks Gait device: Crutch/Walker Community Services: Home health, [facility], [facility]-none of one time a week Will you live with someone who will care for you?: Yes RAPT Tool Score: 7 Patient expects to be discharged to: TBD SBIRT: Unable to assess-SASQ: Cognitive issues/Dementia Intervention in place/initiated?: No, not indicated FUNCTIONAL STATUS: Activities patient requires assistance: Bathing, Dressing, Grooming, In/Out of Bed, Mobility Assistive Devices: Walker Walker type: Front wheel COMMUNITY RESOURCES/SUPPORTS: Primary Care Provider: Viki Elaine PCP Verified: Specialists: Neurology, Oncology Type of Home Health Services: Home health aide, Home PT/OT DME Provider: Pharmacy: [facility] ([facility]) - [place], [place] - [address] [facility] [id number] [address] - [place], [place] - [address] [facility] [address] Home Health: [facility] Other: POST HOSPITAL TRANSITION PLAN: Patient admitted with seizures. Patient is alert and oriented x3, lives with her spouse in a SF. Patient relies on family for assistance with ADL's and IADL's, uses a walker. [facility] Patient pending work up, CM will follow LOLA NUNN 11/06/2021 15:19 Lola Nunn LMSW Assistant Federal Public Defender II Pager: [phone] Jeison Proctor MD - 11/06/2021 1131 EDT Neurology Progress Note Admit Date: 11/04/2021 Hospital day: LOS: 2 days Date of Service: 11/06/2021 Procedure/Diagnosis: Seizure PCP: Viki Elaien Code Status: Full Code Chief Complaint: Seizures in the setting of GBM Subjective: Lizette says she is doing okay this morning, but does not have much else to say. She does not recall much about our conversation regarding bevacizumab yesterday, if anything, but says she still would like to proceed with this. She does states she has had continued clenching of her right arm and leg off and on and confirms that this is not comfortable. Current Facility-Administered Medications Medication Route Frequency ??? acetaminophen (TYLENOL) tablet 500 mg oral Q4H PRN ??? alteplase (CATHFLO ACTIVASE) injection 2 mg intercatheter Once PRN ??? bevacizumab-awwb (MVASI) 680 mg in sodium chloride (NS) 0.9 % 100 mL infusion intravenous Now ??? dexAMETHasone (DECADRON) tablet 8 mg oral BID ??? diphenhydrAMINE (BENADRYL) injection 50 mg intravenous PRN ??? enoxaparin (LOVENOX) injection 40 mg subcutaneous DAILY ??? EPINEPHrine (ADRENALIN) injection 0.3 mg intramuscular PRN ??? heparin (PF) flush 30 Units intercatheter Once PRN ??? heparin (PF) lock flush 500 Units intercatheter Once PRN ??? levETIRAcetam (KEPPRA) 1,500 mg in sodium chloride (NS) 0.9 % 100 mL IVPB intravenous Q12H ??? levothyroxine (SYNTHROID) tablet 100 mcg oral DAILY BEFORE BREAKFAST ??? lidocaine (PF) 10 mg/mL (1 %) injection 2 mg intradermal PRN ??? lidocaine (PF) 10 mg/mL (1 %) injection 2 mL intradermal PRN ??? methylPREDNISolone sod suc(PF) (SOLU-MEDROL) injection 100 mg intravenous PRN ??? ondansetron (ZOFRAN-ODT) disintegrating tablet 8 mg oral Q8H PRN ??? pantoprazole (PROTONIX) tablet 20 mg oral BID ??? polyethylene glycol 3350 (MIRALAX) packet 17 g oral Daily PRN ??? senna (SENOKOT) tablet 2 Tablet oral QHS ??? sodium chloride 0.9 % (flush) flush 10 mL intravenous PRN ??? sodium chloride 0.9 % (flush) flush 10 mL intercatheter PRN ??? sodium chloride 0.9 % (flush) flush 20 mL intercatheter PRN ??? sodium chloride 0.9 % (NS) infusion intravenous CONTINUOUS ??? valproic acid (DEPAKENE) capsule 1,000 mg oral BID Review of Systems: Focused ROS obtained. Pertinent positives and negatives noted in subjective. Objective/Physical Exam: VS current: Temp: 35.9 ??C (96.6 ??F) Pulse: 59 Resp: 16 BP: 121/67 SpO2: 99 % Exam: Neurological Exam: Data Review: I have independently visualized the Labs: CBC: Lab Results Component Value Date WBC 7.48 11/06/2021 RBC 4.21 11/06/2021 HGB 14.2 11/06/2021 HCT 38.7 11/06/2021 MCV 92 11/06/2021 MCH 33.7 (H) 11/06/2021 MCHC 36.7 (H) 11/06/2021 PLT 91 (L) 11/06/2021 NEUTROABS 6.90 11/06/2021 BMP: Lab Results Component Value Date NA 132 (L) 11/06/2021 K 4.6 11/06/2021 CL 99 11/06/2021 CO2 26 11/06/2021 BUN 25 11/06/2021 CREATININE 0.52 11/06/2021 CALCIUM 8.4 (L) 11/06/2021 MG 2.0 11/04/2021 LABALBU 3.4 11/04/2021 Coagulation: Lab Results Component Value Date PROTIME 15.3 (H) 11/04/2021 LFT: Lab Results Component Value Date TBIL 0.9 11/04/2021 ALKPHOS 50 11/04/2021 AST 24 11/04/2021 ALT 37 (H) 11/04/2021 U/A: Lab Results Component Value Date CLARITYU Clear 11/04/2021 LABSPEC 1.025 11/04/2021 PHUR 8.0 11/04/2021 GLUCOSEU Negative 11/04/2021 BILIRUBINUR Negative 11/04/2021 KETONES Negative 11/04/2021 BLOODU Negative 11/04/2021 PROTEINUA Negative 11/04/2021 Imaging: MR Head WWO Contrast, 11/04/2021 IMPRESSION 1. While the size of the [...] for an enlarging/new site of multifocal disease. Procedures: EEG - updated report Assessment: Lizette Cardona is a 66 y.o. R-handed female with PMHx significant for recently diagnosed GBM (; MGMT unmethylated, IDH-wildtype, WHO grade 4) who follows with Dr. Bynum of neuro-oncology as an outpatient. She presented to [facility] initially due to concern for multiple seizure-like events described as right arm and leg shaking with retained awareness. Prior to arriving at [facility] she received lorazepam 1 mg x 2 as well as 1 g of Keppra. She had been on Keppra 500 mg twice daily due to previous seizure-like activity as well, and this was increased to 1 g twice daily on admission. ?? She just recently started temozolomide + RT for treatment on 11/02 prior to this presentation. Interestingly, MRI reveals an overall decreased level of edema associated with her mass, as this can often increase in the midst of radiation therapy, though unfortunately shows disease progression and now involving the right cingulate gyrus in addition to the previously noted areas. She has had episodic tonic activity of the right upper and lower extremities which correlates on EEGw/ left hemispheric discharges. Loaded with Depakote 20 mg/kg last night due to ongoing seizures several hours after additional Keppra load and lorazepam 2 mg IV. She unfortunately continued to seize throughout the night, and again when we saw her this morning, and requires further medication titration. We are coordinating to have an oncology nurse come to the floor so she can start bevacizumab today. Plan: Breakthrough seizures Initially presented with post ictal AMS, now resolved. Continuing to have seizure events captured onvEEG, described above. Suspect edema and mass effect / radiation therapy may be causing these seizure eventswith apparent left hemispheric focus on EEG. -Discontinue vEEG monitoring today given that her events are well-characterized clinically and have correlated focally on EEG - S/p 2mg lorazepam IV, 1g Keppra on top of AM Keppra dose, + 20 mg/kg depakote load 11/05 - Continue Keppra to 1500 mg BID - Continue Depakote 750 mg twice daily - Reload Depakote load 30 mg/kg now X1 + lorazepam 2 mg IV x1 - Given abatement of seizure confirmed by EEG yesterday and today after lorazepam therapy and continued seizures today, will also add on low-dose clobazam at 5 mg BID Glioblastoma multiforme Diagnosed 10/09/2021 with biopsy on 10/13/2021 confirming GBM, IDH-wildtype, WHO Grade 4, MGMT promoter methylation negative. Started ELECTRONIC GLUER 11/02/21 with plan for 40Gy in 15 fractions w/ concurrent temozolomide 140mg daily. S/p 2 days of ELECTRONIC GLUER. unfortunately w/ MRI w/ evidence concerning for enlargement or newsite of disease in the right cingulate gyrus, as well as significant associated edema, though less than noted in prior imaging. - Hold prior ELECTRONIC GLUER regimen; plan to resume in future as OP pending seizure control - Start Bevacizumab 15 mg/kg today - will coordinate oncology nurse to administer medication on our floor - Urine protein/Cr ratio obtained Thrombocytopenia Of uncertain chronicity. Appears stable. - Daily CBC for right now Mild chronic hyponatremia -Hold WATCH BAND ASSEMBLER NaCL -Daily BMP for now Hypothyroidism -WATCH BAND ASSEMBLER levothyroxine 100mcg daily ?? Diet:Regular DVT PPX: Lovenox 40mg daily Code Status: Full Discharge Plan: Uncertain at this time Jeison Wray DO PGY-2, Neurology Pager: [phone] nights and weekends Patient seen and case discussed with neuro-oncology attending, Dr. Bynum. Associated attestation - Ewa Bynum MD - 11/09/2021 0900 EDT I personally interviewed and examined the patient with the resident on 11/06/2021. She had two witnessed episodes of the same semiology (grimace, b/l arm flexion, right leg abduction). Loaded Ativan 2mg IV, Load VPA, increase VPA to 1000mg BID, check VPA level, receive Bevacizumab when oncology nursing available, hold off temozolomide and bactrim for Grade 1 thrombocytopenia in the 90s. Discharge plan when seizures are controlled - home with her with plan to resume radiation therapy with at [facility]. Please instruct continue to withhold Temozolomide and Bactrim upon discharge due tolow platelets. Suad Fairchild Richard - 11/06/2021 1100 EDT Spiritual Care Department Home Performance Consultant Note Re: Lizette Cardona : 1955 Room: [id number] Service: Neurology Buddhism: Shinto Lizette has received a visit from the Spiritual Care Department on 11/06/2021. Assessment/Comments: Lizette was sleeping when I stepped into her room for pastoral visitation. Me with her , sisterand brother in law at bedside. He spouse reported that Lizette began to have seizure after going through two chemotherapy and two radiation treatments. I was introduced by her spouse to Lizette when she woke-up. Lizette held my hands and spoke with soft tone. Provided reassure without overstating hope unrealistically. Administered the Sacrament of the sick and prayed for patient. DEMOGRAPHICS Spiritual Care Welcomed End of Life Patient Is Oriental Orthodox Importance Very Important Current Support System Family/Friends Level of Support Strong Support ENCOUNTER DATA Date of Encounter 11/06/21 Time of Encounter 1100 Reason for Encounter Referral Referred by Self Care Level 4 - Significant Patient Concerns Reason not visited ENCOUNTER Needs Addressed Home Performance Consultant Support, Sacraments, Prayer Support Interventions Sacraments, Family Support, Spiritual Counseling Sacraments Provided Anointed Date of Anointing 11/06/21 Communion Date of Communion Date of Adventist OUTCOME Outcome Stress Level No Change Outcome of Encounter Needs Met CARE PLAN Plan Continued Home Performance Consultant Support Consult With Additional Support Was Clergy Needed? Yes, provided, Parachute Supervisor TIME STAMP: Total time spent 20 minutes in direct floor time; >50% of time was spent in spiritualcare. NAKUL ZARAGOZA 11/06/2021 15:39 Aylin Lewis MD - 11/05/2021 1310 EDT Images from the original note were not included. Interim vEEG Report In review of the study on 11/05/21 from 07:01 - 10:56, the patient continues to have mild intermittent polymorphic slowing seen over the left hemisphere near continuously, most prominent in the left parasagittal chain, embedded within a breach rhythm. There are several events noted that clinically appear to be seizures. The patient is covered by a blanket and movements are not well visualized on camera; however, she develops what appears to be dystonic posturing of the right arm with facial grimace, eye blinking +/- late left head turn (not forced version). Reportedly, there is also right leg involvement with these events. Electrographically, there is significant muscle artifact; however, there appears to be semirhythmic theta that develops later in the clinical event within the breach rhythm of the left posterior quadrant. It appears that ictal activity remains restricted to the left hemisphere. There is no significantpostictal slowing. Example of ictal correlate: Events are brief, lasting ~10-30 seconds. During this recording, there are approximately 8 seizures with poor scalp correlate that are captured. Recording ongoing with full report to follow. Primary team aware. Sera Leblanc MD, MSCE High Frequency Mill Operator, Epilepsy Division Department of Neurological Sciences eal, MD Jeison - 11/05/2021 1306 EDT Images from the original note were not included. Neurology Progress Note Admit Date: 11/04/2021 Hospital day: LOS: 1 day Date of Service: 11/05/2021 Procedure/Diagnosis: Seizure PCP: Viki Elaine Code Status: Full Code Chief Complaint: Seizures in the setting of GBM Subjective: Today Lizette is continuing to have seizure episodes per her family report, with an episode captured on vEEG this morning around 0900. The episodes continue to be right arm and leg tensing and shaking with preserved awareness. One episode was witnessed while talking with the patient in the room at around 1130. She is otherwise awake and doing okay, with her family at the bedside. She is aware of the events and is not confused or disoriented. We discussed in detail, the findings of a repeat MRI today and potential course moving forward with both chemotherapy and radiation. We discussed the possibility of starting bevacizumab tomorrow, whichboth the patient and her family were in agreement with. We also discussed the specifics of treating geri burt both acutely, and by increasing her daily medication moving forward. We discussed the importance of needing to control her seizures in order to continue with radiation in the future. Specifically discussed risks of DVT/PE both w/ GBM and addition of bevacuzimab therapy. Current Facility-Administered Medications Medication Route Frequency ??? acetaminophen (TYLENOL) tablet 500 mg oral Q4H PRN ??? dexAMETHasone (DECADRON) tablet 8 mg oral BID ??? enoxaparin (LOVENOX) injection 40 mg subcutaneous DAILY ??? levETIRAcetam (KEPPRA) 1,500 mg in sodium chloride (NS) 0.9 % 100 mL IVPB intravenous Q12H ??? levothyroxine (SYNTHROID) tablet 100 mcg oral DAILY BEFORE BREAKFAST ??? lidocaine (PF) 10 mg/mL (1 %) injection 2 mg intradermal PRN ??? ondansetron (ZOFRAN-ODT) disintegrating tablet 8 mg oral Q8H PRN ??? pantoprazole (PROTONIX) tablet 20 mg oral BID ??? polyethylene glycol 3350 (MIRALAX) packet 17 g oral Daily PRN ??? senna (SENOKOT) tablet 2 Tablet oral QHS Review of Systems: Focused ROS obtained. Pertinent positives and negatives noted in subjective. Objective/Physical Exam: VS current: Temp: 35.9 ??C (96.6 ??F) Pulse: 67 Resp: 20 BP: 135/70 SpO2: 97 % Exam: Neurological Exam: Patient is awake, alert and oriented to person and situation. She exhibits intermittent right-sided tonic activity of the right upper and lower extremities lasting <1 minute and her awareness is retained. There is no head or eye deviation. And there is no spreading of activity to the contralateral side. Full examination was not performed today due to ongoing intermittent seizure activity and acutetherapies administered for seizure control which induced increased level of drowsiness. Data Review: I have independently visualized the Labs: CBC: Lab Results Component Value Date WBC 9.48 11/05/2021 RBC 4.44 11/05/2021 HGB 14.8 11/05/2021 HCT 41.3 11/05/2021 MCV 93 11/05/2021 MCH 33.3 11/05/2021 MCHC 35.8 11/05/2021 PLT 92 (L) 11/05/2021 NEUTROABS 6.49 11/04/2021 BMP: Lab Results Component Value Date NA 133 (L) 11/05/2021 K 4.5 11/05/2021 CL 99 11/05/2021 CO2 23 11/05/2021 BUN 23 11/05/2021 CREATININE 0.56 11/05/2021 CALCIUM 8.9 11/05/2021 MG 2.0 11/04/2021 LABALBU 3.4 11/04/2021 Coagulation: Lab Results Component Value Date PROTIME 15.3 (H) 11/04/2021 LFT: Lab Results Component Value Date TBIL 0.9 11/04/2021 ALKPHOS 50 11/04/2021 AST 24 11/04/2021 ALT 37 (H) 11/04/2021 U/A: Lab Results Component Value Date CLARITYU Clear 11/04/2021 LABSPEC 1.025 11/04/2021 PHUR 8.0 11/04/2021 GLUCOSEU Negative 11/04/2021 BILIRUBINUR Negative 11/04/2021 KETONES Negative 11/04/2021 BLOODU Negative 11/04/2021 PROTEINUA Negative 11/04/2021 Imaging: MR Head WWO Contrast, 11/04/2021 IMPRESSION 1. While the size of the [...] for an enlarging/new site of multifocal disease. Procedures: EEG - most recent report (11/05 0686 - 0661) Interim vEEG Report ?? In review of the study on 11/05/21 from 07:01 - 10:56, the patient continues to have mild intermittent polymorphic slowing seen over the left hemisphere??near continuously, most prominent in the left parasagittal chain, embedded within a breach rhythm. ?? There are several events noted that clinically appear to be seizures. The patient is covered by a blanket and movements are not well visualized on camera; however, she develops what appears to be dystonic posturing of the right arm with facial grimace, eye blinking +/- late left head turn (not forced version). Reportedly, there is also right leg involvement with these events. ?? Electrographically, there is significant muscle artifact; however, there appears to be semirhythmic theta that develops later in the clinical event within the breach rhythm of the left posterior quadrant. It appears that ictal activity remains restricted to the left hemisphere. There is no significantpostictal slowing. ?? Example of ictal correlate: ?? Events are brief, lasting ~10-30 seconds. During this recording, there are approximately 8 seizures with poor scalp correlate that are captured. Assessment: Lizette Cardona is a 66 y.o. R-handed female with PMHx significant for recently diagnosed GBM (; MGMT unmethylated, IDH-wildtype, WHO grade 4) who follows with Dr. Bynum of neuro-oncology as an outpatient. She presented to [facility] initially due to concern for multiple seizure-like events described as right arm and leg shaking with retained awareness. Prior to arriving at [facility] she received lorazepam 1 mg x 2 as well as 1 g of Keppra. She had been on Keppra 500 mg twice daily due to previous seizure-like activity as well, and this was increased to 1 g twice daily on admission. ?? She just recently started temozolomide + RT for treatment on 11/02 prior to this presentation. Interestingly, MRI reveals an overall decreased level of edema associated with her mass, as this can often increase in the midst of radiation therapy, though unfortunately shows disease progression and now involving the right cingulate gyrus in addition to the previously noted areas. She has had episodic tonic activity of the right upper and lower extremities which appears to correlate with discharges on EEG in the left hemisphere. Given seizure activity this morning, Lizette was given additional 1 g of Keppra and 2 mg Ativan IV, and twice daily Keppra dose was increased to 1500 mg. She later had several more seizures between 1530 and 1830 which were better characterized on EEG (see report pending). Immediate concern is seizure control/prevention. We also had a lengthy discussion with the family today about starting bevacizumab tomorrow morning in conjunction with patient's outpatient neuro oncologist Dr. Bynum Plan: Breakthrough seizures Initially presented with post ictal AMS, now resolved. Continuing to have seizure events captured onvEEG, described above. Suspect edema and mass effect 2/2 radiation therapy may be causing these seizure eventswith apparent left hemispheric focus on EEG. -Continue vEEG until tomorrow. Barring no changes, I favor coming off EEG tomorrow given highly characteristic clinical appearance of seizure correlated with EEG activity today - S/p 2mg Ativan IV and 1g Keppra on top of AM Keppra dose today - Increase Keppra to 1500 mg BID - Add Depakote load 20 mg/kg now X1 - Start Depakote 500 mg twice daily tomorrow a.m. Glioblastoma multiforme Diagnosed 10/09/2021 with biopsy on 10/13/2021 confirming GBM, IDH-wildtype, WHO Grade 4, MGMT promoter methylation negative. Started ELECTRONIC GLUER 11/02/21 with plan for 40Gy in 15 fractions w/ concurrent temozolomide 140mg daily. S/p 2 days of ELECTRONIC GLUER. unfortunately w/ MRI w/ evidence concerning for enlargement or newsite of disease in the right cingulate gyrus, as well as significant associated edema, though less than noted in prior imaging. - Hold prior ELECTRONIC GLUER regimen; plan to resume in future as OP pending seizure control - Start Bevacizumab 15 mg/kg tomorrow AM - will coordinate oncology nurse to administer medication on our floor - Urine protein/Cr ratio obtained Thrombocytopenia Of uncertain chronicity. Appears stable. - Daily CBC for right now Mild chronic hyponatremia -Hold WATCH BAND ASSEMBLER NaCL -Daily BMP for now Hypothyroidism -WATCH BAND ASSEMBLER levothyroxine 100mcg daily ?? Diet:Regular DVT PPX: Lovenox 40mg daily Code Status: Full Discharge Plan: Uncertain at this time Susie Curtis 11/05/2021 14:04 [id number] #[id number] Attestation statement: I was present with the medical student for the history, exam, and medical decision making documented. I have personally performed my own physical exam and medical decision making. I have verified and agree with (or, as indicated, have edited) the medical student's documentation. Jeison Wray, PGY-2, Neurology Pager: [phone] / [phone] nights and weekends Patient seen and case discussed with neuro-oncology attending, Dr. Bynum. Associated attestation - Ewa Bynum MD - 11/06/2021 0900 EDT I personally interviewed and examined the patient with the resident on 11/05/2021. I agree with documented findings and plan of care with the following additions: Ms. Cardona is a 66 year old woman withmultifocal GBM diagnosed at [facility]. Now admitted in with seizures. Seizure semiology - tonic flexion of both arms, vocalization, dystonic turn of the head/neck to the left, right leg abduction. Ongoing EEG monitoring. AEDS now include Keppra 1500mg BID, Depakote 500mg BID. Also seen 11/06 ~ 830 am where she had two witnessed episodes. Plan is for Ativan 2mg IV, Load VPA, increase VPA to 1000mg BID, check VPA level, receive Bevacizumab when oncology nursing available, hold off temozolomide and bactrim for Grade 1 thrombocytopenia in the 90s. Discharge plan when seizures are controlled - home with her with plan to resume radiation therapy with Dr. Mercado at [facility]. Please instruct continue to withhold Temozolomide and Bactrim upon discharge due to low platelets. Ted Fairchild Ryan, MD - 11/04/2021 1852 EDT Brief neurology update note: Patient seen today with neurology attending and we spoke with patient's outpatient neuro-oncologist regarding the plan for Lizette and highlights are outlined below: -Increase dexamethasone to 8 mg twice daily -We will continue levetiracetam 1 g twice daily -We will hold off on temozolomide/RT today -Obtain MR head with and without contrast -Continue vEEG for now Findings to date: There is mild intermittent polymorphic slowing seen over the left hemisphere, most prominent in the left parasagittal chain, embedded within a breach rhythm from patient's known biopsy. There are no interictal discharges, seizures or clinical push button events noted. -I will see Lizette tomorrow with her neuro oncologist Dr. Bynum to discuss next steps Jeison Wray, DO PGY-2, Neurology Pager: [phone] after 7 PM eAylin medley MD - 11/04/2021 0800 EDT Images from the original note were not included. vEEG PRELIM READ This study has been reviewed from 06:40-07:56. The background is continuous, reactive, symmetric, and well organized. There is mild intermittent polymorphic slowing seen over the left hemisphere, most prominent in the left parasagittal chain, embedded within a breach rhythm from patient's known biopsy. There are no interictal discharges, seizures or clinical push button events noted. Recording ongoing with full report to follow. Sera Leblanc MD, [employer] High Frequency Mill Operator, Epilepsy Division Department of Neurological Sciences documented in this encounter H&P Notes Lauryn Salmeron MD - 11/04/2021 0347 EDT Neurology History and Physical Service Date: 11/04/2021 Admit Date: 11/04/21 Primary Care Provider: Viki Elaine Referring MD:Keily Atkinson MD Code Status: Full Code Chief Complaint: Seizure HPI Lizette Cardona is a 66 y.o. female with a PMHx of recently diagnosed glioblastoma seen by , and possible thyroid dysfunction who presents from an [facility] due to seizure. Per chart review the patient was recently started on chemotherapy to treat her glioblastoma and had radiation and chemotherapy last week and possibly chemotherapy today. Status post chemotherapy today she had a seizure and at the outside hospital she was given 2 doses of 1 mg Ativan and 1000 mg of Keppra. Per chart review the patient is is a poor historian and much of her information can be provided by [facility] for collateral. Upon interview the patient does not remember what happened today, and she is mildly confused. She denies any fevers, chills, recent infection, cough, shortness of breath, chest pain, abdominal pain, nausea, vomiting, diarrhea, urinary frequency, dysuria, urinary urgency, dizziness, headache, or weakness. In the ED she was found to be afebrile, VSS, with mild hyponatremia of [address] head at that outside hospital had no acute findings per ED provider. Documentation from outside hospital was not available for review. Per Dr. Bynum's Note 10/27/21: Lizette Cardona is a 66 y.o. 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 ??She was diagnosed after she developed, AL, nausea and vomiting found to have an intracranial mass for which patient was transferred to [facility] on 10/09/21. Per admission H&P, it was reported that she had been unlike herself starting in June 2021, initially starting with simple forgetfulness and repeating herself w/ increased disorientation starting August. CT head on 09/24 noted an intracranial mass centered on the splenium of the corpus callosum with associated ventriculomegaly, cerebral edema, and focal area of hyperdensity.NSGY called via tumor hotline with recommendation for urgent outpatinet MRI and clinic f/u on 10/13, but Lizette developed n/v, AL, and more severe confusion resulting in OSH ED presentation and was transferred to [facility] for further management.While inpatient she was started on keppra for seizure prophylaxis and dexamethasone for cerebral edema. 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 She is due to start radiation 11/02. She is planned for 40Gy in 15 fractions. She is on Decadron 4mg QID. She is on Keppra 500mg BID. Her is unclear if she has ever had seizures. She had some confusional episodes when she was first diagnosed. She is fatigued. She denies headaches, no nausea or vomiting today. Her cognition is very poor. She relies on her to remember everything including medications and appointments ONCOLOGY HISTORY:?? 10/09/2021: MRI - Large Butterfly tumor. Biopsy only. Path GBM, IDH WT 11/02/2021: Concurrent chemoradiation x 3 weeks ?? Review of Systems Reviewed 10 systems all negative except for stated above. History reviewed. No pertinent past medical history. History reviewed. No pertinent surgical history. Social History Tobacco Use ??? Smoking status: Never Smoker ??? Smokeless tobacco: Never Used Substance Use Topics ??? Alcohol use: Not on file No family history on file. Current Outpatient Medications Medication Sig ??? acetaminophen (TYLENOL) 500 mg tablet Take 500 mg by mouth as needed for Pain. ??? calcium carbonate (CALCIUM 500 ORAL) Take 500 mg by mouth daily. ??? calcium citrate 200 mg (950 mg) Take 200 mg by mouth daily. ??? dexAMETHasone (DECADRON) 4 mg tablet Take 1 Tablet by mouth 2 times daily. Take 4mg twice a day at 6am and 6 pm ??? diphenhydramine HCl (BENADRYL ALLERGY ORAL) Take by mouth as needed. ??? docusate sodium (COLACE) 100 mg capsule Take 100 mg by mouth daily. ??? levETIRAcetam (KEPPRA) 500 mg tablet Take 500 mg by mouth 2 times daily. ??? Levothyroxine 100 mcg capsule Take 100 mcg by mouth daily. ??? Multivitamins with Minerals tablet tablet Take 1 Tablet by mouth daily. ??? ondansetron (ZOFRAN-ODT) 8 mg disintegrating tablet Take 30 minutes before Temodar and then every 8 hours as needed for nausea ??? pantoprazole (PROTONIX) 20 mg tablet Take 20 mg by mouth 2 times daily. ??? sodium chloride 1,000 mg soluble tablet Take 1 g by mouth daily. ??? sulfamethoxazole-trimethoprim (BACTRIM/CO-TRIMOXAZOLE DS) 800-160 mg per tablet Take 1 Tablet byfluth three times a week. ??? temozolomide (TEMODAR) 140 mg capsule Take 1 capsule by mouth daily Take zofran 30 minutes before temodar and take temodar 1 hour before radiation. No Known Allergies Objective Vitals Temp: [35.7 ??C (96.2 ??F)] , Heart Rate: [59 BPM-68 BPM] , Pulse: [52] , Resp: [13-26] , BP: (132-135)/(63-65) , SpO2: [97 %] , Numeric Pain Level (Scale 1-10): 0 Weight: Weight : 68 kg (150 lb) Body mass index is 24.96 kg/m??. Physical Exam: Exam limited due to mentation GEN: Adult female somnolent in bed, alert and oriented to person and place only, no acute distress HEENT: Normocephalic, atraumatic, no scleral icterus, no conjunctival pallor, MMM, benign oropharynx. LUNG: Breathing comfortably on RA ABD: Soft, non-tender, non-distended. EXT: Extremities symmetrical. No peripheral edema, erythema, cyanosis, or tenderness to palpation. SKIN: Warm, dry, no rashes present on visible skin. Neurological exam:Exam limited due to mentation MENTAL STATUS: Somnolent. AAOx2 (person/place). Follows simple commands intermittently. LANGUAGE: Exam limited due to mentation no aphasia or dysarthria. Volume and intonation grossly normal. CRANIAL NERVES: Exam limited due to mentation CN II: PERRLA. CN III-IV, : Pupils 3 mm (R/L). EOMMs intact with no nystagmus, gaze palsy or preference. CN V: Normal masseter bulk. V1-V3 intact to LT. CN VII: Face symmetric bilaterally. Smile symmetric. Buries eyelashes and raises eyebrows symmetrically. Nasolabial folds and palpebral folds symmetric bilaterally CN VIII: Hearing grossly intact. CN IX-X: No dysarthria. Palate elevates symmetrically with no uvular deviation. CN XI: Shoulder shrug symmetric with full strength. CN XII: Tongue midline, no deviation, atrophy, or fasciculations. MOTOR: Normal muscle bulk and tone. No pronator drift or orbiting. No tremors or abnormal movements noted during exam. Formal strength testing as follows: Upper Extremity Strength Shoulder abd (C5) Elbow flexion (C5,6) Elbow ext (C7) Wrist extension (C7) Finger abd (C8, T1) Fine Hairer (T1) Right 5/5 5/5 5/5 5/5 5/5 5/5 Left 5/5 5/5 5/5 5/5 5/5 5/5 Lower Extremity Strength Hip flexion (L2,3) Knee extension (L3,4) Ankle DF (L4,5) Knee flexion (L5,S1) Ankle PF (S1,2) Right 4/5 4/5 4/5 4/5 3+/5 Left 4/5 4/5 4/5 4/5 4/5 SENSORY: Intact to light touch symmetrically in proximal/distal UE/LEs. Exam limited due to mentation REFLEXES: DTRs: Right Left Biceps 3+ 3+ Triceps 2+ 2+ Bracheoradialis 2+ 2+ Patellar 2+ 2+ Achilles 2+ 2+ Ankle clonus Absent Absent Plantar responses Flexor Flexor COORDINATION: Exam limited due to mentation not following commands GAIT: Deferred Labs I have personally reviewed Recent Labs 11/04/21 0503 NA 131* K 3.9 CL 99 CO2 26 BUN 22 CREATININE 0.54 CALCIUM 8.3* MG 2.0 LABALBU 3.4 Recent Labs 11/04/21 0502 PROTIME 15.3* INR 1.3* Recent Labs 11/04/21 0503 TBIL 0.9 ALKPHOS 50 AST 24 ALT 37* Recent Labs 11/04/21 0513 COLOR Yellow CLARITYU Clear GLUCOSEU Negative BILIRUBINUR Negative KETONES Negative LABSPEC 1.025 PHUR 8.0 PROTEINUA Negative NITRITE Negative LEUKESTER Negative Imaging I have independently visualized images No results found Assessment Lizette Cardona is a 66 y.o. female with a PMHx significant for recently diagnosed glioblastoma and possible thyroid dysfunction who presents from an [facility] due to seizure. She was foundto have seizure after chemotherapy on 11/03. Infectious work-up has been unremarkable as well as imagi ng from outside hospital of CT head. The patient on exam is found to be somnolent likely due to postictal state as well decreased lower extremity strength. She will be admitted to the neurology service for EEG monitoring and plan to consult neuro oncology for further management. Her seizures were likely secondary to her GBM and may need repeat neuroimaging. Plan #Seizure #Post ictal AMS -vEEG -Increased WATCH BAND ASSEMBLER Keppra from 500 mg BID to 1000 mg BID -Seizure precautions #GBM #H/o Cerebral Edema - Consult neuro-onc in AM for management and further imaging - WATCH BAND ASSEMBLER Temozolomide 75mg/m2 =140mg daily while on radiation 40 Gy in 15 fractions (call hem/onc attending to order while inpt) - WATCH BAND ASSEMBLER Zofran pretreatment 8mg daily 30 min b/f temozolomide - WATCH BAND ASSEMBLER Bactrim MWF - WATCH BAND ASSEMBLER Decadron 4mg BID - WATCH BAND ASSEMBLER pantoprazole 20 mg BID - PT/OT consulted #Hyponatremia (mildly) -Hold WATCH BAND ASSEMBLER NaCL -BMP #Thyroid dysfunction -WATCH BAND ASSEMBLER levothyroxine 100mcg daily Diet:Regular DVT PPX: Lovenox 40mg daily Code Status: Full, please discuss when patient less altered Discharge Plan: Uncertain at this time Admission status Inpatient admission due to anticipated duration of hospitalization is two midnights or greater due to Seizure. Lauryn Salmeron MD 11/04/21 5:30 Neurology Resident, PGY-2 Epic Message or Pager [phone] after 7PM Discussed w/ Neurology chief, Dr. Hernandez Will formally staff with Neurology attending Dr. Glover on 11/04/21 Associated attestation - Jackelin Glover MD - 11/04/2021 9763 EDT Attestation statement: I performed or was present during the gomez or critical portions of the visit and participated in the management of the patient. I agree with the findings and plan of care documented in the resident's/fellow's note. Lizette Cardona is a 66 y.o. female with a PMHx significant for recently diagnosed glioblastoma and possible thyroid dysfunction who presents from an [facility] for two hours of focal seizure 11/03 (described as right arm and leg shaking with preserved awareness) in the setting of radiation i nitiation 11/02. She was given ativan 1mg which aborted the movements, and this dose was repeated when movements started again at [facility], then keppra was increased to 1g BID. She was monitored on cvEEG with no discharges. Increased dexamethasone to 8mg BID. MRI brain w/wo contrast showed decreased edema of the heterogenously enhancing mess, but increase in size of cortical expansion of the right cingulate gyrus concerning for new site of multifocal disease. We will continue EEG for [address] Bynum will see patient tomorrow for further recommendations regarding next steps. Jackelin Glover MD High Frequency Mill Operator of Neurology [address] [address] P: [phone] F: [phone] documented in this encounter Procedure Notes Aylin Leblanc MD - 11/07/2021 1633 EDTAssociated Order(s): EEG WITH PROLONGED BEDSIDE VIDEO MONITORINGProcedure(s): EEG [facility] Name: Lizette Cardona Clinical Neurophysiology Laboratory [address] [facility] : 1955 [place], [place] Date: 11/07/2021 Video-Electroencephalographic Monitoring Report Referring Physician: Dr. Glover Clinical Indication: This is a 66 y.o.??female??with a PMHx significant for recently diagnosed glioblastoma and possible thyroid dysfunction who presents from outside hospital with concerns of a focal seizure (described as right arm and leg shaking with preserved awareness). Medications: Current Facility-Administered Medications Medication Route Frequency ??? acetaminophen (TYLENOL) tablet 500 mg oral Q4H PRN ??? cloBAZam (ONFI) tablet 5 mg oral BID ??? dexAMETHasone (DECADRON) tablet 8 mg oral BID ??? diphenhydrAMINE (BENADRYL) injection 50 mg intravenous PRN ??? enoxaparin (LOVENOX) injection 40 mg subcutaneous DAILY ??? EPINEPHrine (ADRENALIN) injection 0.3 mg intramuscular PRN ??? levETIRAcetam (KEPPRA) 1,500 mg in sodium chloride (NS) 0.9 % 100 mL IVPB intravenous Q12H ??? levothyroxine (SYNTHROID) tablet 100 mcg oral DAILY BEFORE BREAKFAST ??? lidocaine (PF) 10 mg/mL (1 %) injection 2 mg intradermal PRN ??? lidocaine (PF) 10 mg/mL (1 %) injection 2 mL intradermal PRN ??? methylPREDNISolone sod suc(PF) (SOLU-MEDROL) injection 100 mg intravenous PRN ??? ondansetron (ZOFRAN-ODT) disintegrating tablet 8 mg oral Q8H PRN ??? pantoprazole (PROTONIX) tablet 20 mg oral BID ??? polyethylene glycol 3350 (MIRALAX) packet 17 g oral Daily PRN ??? senna (SENOKOT) tablet 2 Tablet oral QHS ??? sodium chloride 0.9 % (flush) flush 10 mL intravenous PRN ??? sodium chloride 0.9 % (flush) flush 10 mL intercatheter PRN ??? sodium chloride 0.9 % (flush) flush 20 mL intercatheter PRN ??? valproic acid (DEPAKENE) capsule 1,000 mg oral BID Technical Description: Continuous digital video-digital electroencephalographic monitoring is performed. Silver/silver chloride EEG electrodes are placed according to the International 10-20 system as well as anterior temporal electrodes, a CPz recording reference and FCz ground contract. An ECG channel is also monitored. Caregivers are encouraged to maintain an event diary and to press and Event Button in the event of a seizure-like spell (Target Event). The entire EEG dataset is reviewed by the attending physician. No pain assessment for this procedure is necessary. Findings: The monitoring period begins 11/07/2021 at 07:33 and ends at 16:05. The background is continuous, reactive, mostly symmetric, and moderately organized with an anterior posterior gradient, although a previously noted posterior dominant rhythm is not well maintained. There is frequent diffuse polymophic slowing, lasting 1-5 seconds, consisting of theta-delta frequencies intermixed in the background. There is further intermittent polymorphic theta-delta slowing seen over the left hemisphere near continuously, most prominent in the left parasagittal chain, embedded within a breach rhythm from patient's known biopsy site, with higher amplitudes noted and excess beta frequencies. Electrographic seizures are no longer seen on EEG. There are numerous clinical push button events while the patient is awake. These clinical push button events are noted for right lower extremity raising and stiffening, which is very brief but likely represent focal seizures. There are approximately 25 clinical push button events. Single lead EKG is not interpretable due to artifact. Impression: This is an abnormal EEG due to moderate diffuse slowing, further embedded slowing withinthe left hemispheric breach rhythm (seen within the context of prior neurosurgical intervention), most prominent in the parasaggital leads. There are frequent likely focal clinical seizures without ictal correlate for very brief right lower extremity stiffening/raising when seen on video, which likelyrepresent focal motor seizures not captured on EEG. This is the concluding segment of the recording. Aylin Leblanc MD ABPN Certified, Neurology and Epilepsy 16:34 11/07/2021 [facility] MD - 11/06/2021 7239 EDTProcedure(s): EEG WITH PROLONGED BEDSIDE VIDEO MONITORING [facility] Name: Lizette Cardona Clinical Neurophysiology Laboratory [address] [facility] : 1955 [place], [place] Date: 11/06/2021 Video-Electroencephalographic Monitoring Report Referring Physician: Dr. Glover Clinical Indication: This is a 66 y.o.??female??with a PMHx significant for recently diagnosed glioblastoma and possible thyroid dysfunction who presents from outside hospital with concerns of a focal seizure (described as right arm and leg shaking with preserved awareness). Medications: Current Facility-Administered Medications Medication Route Frequency ??? acetaminophen (TYLENOL) tablet 500 mg oral Q4H PRN ??? cloBAZam (ONFI) tablet 5 mg oral BID ??? dexAMETHasone (DECADRON) tablet 8 mg oral BID ??? diphenhydrAMINE (BENADRYL) injection 50 mg intravenous PRN ??? enoxaparin (LOVENOX) injection 40 mg subcutaneous DAILY ??? EPINEPHrine (ADRENALIN) injection 0.3 mg intramuscular PRN ??? lacosamide (VIMPAT) tablet 100 mg oral Q12H ??? levETIRAcetam (KEPPRA) 1,500 mg in sodium chloride (NS) 0.9 % 100 mL IVPB intravenous Q12H ??? levothyroxine (SYNTHROID) tablet 100 mcg oral DAILY BEFORE BREAKFAST ??? lidocaine (PF) 10 mg/mL (1 %) injection 2 mg intradermal PRN ??? lidocaine (PF) 10 mg/mL (1 %) injection 2 mL intradermal PRN ??? methylPREDNISolone sod suc(PF) (SOLU-MEDROL) injection 100 mg intravenous PRN ??? ondansetron (ZOFRAN-ODT) disintegrating tablet 8 mg oral Q8H PRN ??? pantoprazole (PROTONIX) tablet 20 mg oral BID ??? polyethylene glycol 3350 (MIRALAX) packet 17 g oral Daily PRN ??? senna (SENOKOT) tablet 2 Tablet oral QHS ??? sodium chloride 0.9 % (flush) flush 10 mL intravenous PRN ??? sodium chloride 0.9 % (flush) flush 10 mL intercatheter PRN ??? sodium chloride 0.9 % (flush) flush 20 mL intercatheter PRN ??? sodium chloride 0.9 % (NS) infusion intravenous CONTINUOUS ??? valproic acid (DEPAKENE) capsule 1,000 mg oral BID Technical Description: Continuous digital video-digital electroencephalographic monitoring is performed. Silver/silver chloride EEG electrodes are placed according to the International 10-20 system as well as anterior temporal electrodes, a CPz recording reference and FCz ground contract. An ECG channel is also monitored. Caregivers are encouraged to maintain an event diary and to press and Event Button in the event of a seizure-like spell (Target Event). The entire EEG dataset is reviewed by the attending physician. No pain assessment for this procedure is necessary. Findings: The monitoring period begins 11/06/2021 at 05:41 and ends 11/07/2021 at 07:32. The background is continuous, reactive, mostly symmetric, and moderately organized with an anterior posterior gradient, although a previously seen posterior dominant rhythm is not well maintained. There is frequent diffuse polymophic slowing, lasting 1-5 seconds, consisting of theta-delta frequencies i ntermixed in the background. There is further intermittent polymorphic theta-delta slowing seen over the left hemisphere near continuously, most prominent in the left parasagittal chain, embedded within a breach rhythm from patient's known biopsy site, with higher amplitudes noted and excess beta frequencies. There are clinically apparent seizures seen throughout the recording. Often the patient is not well visualized on camera; however, when visualized, she develops likely dystonic posturing of the right arm with facial grimace, +/- eye blinking with late left head turn. Reportedly, there is also right leg involvement with these events although this again is not well appreciated. ?? Electrographically, there is significant muscle artifact correlating with the onset of events; laterin the event, there appears to be semirhythmic sharply contoured theta that develops within the breach rhythm of the left posterior quadrant. It appears that ictal activity remains restricted to the left hemisphere. There is no significant postictal slowing. (electrographic signature is similar to previously described seizures earlier in the recording) ?? At the beginning of the recording, events last upwards of 60 seconds. After lorazepam is administered around 09:30, there are no seizures seen until approximately 13:15. Seizures continue to recur ~2-4/hour until 16:30 when lorazepam is again administered. After this period, electrographic seizures are not well defined, although there are numerous clinical push button events while the patient is awake. At times, the camera is pointed away from the patient; however, when visualized, these clinical push button events are noted for right lower extremity raising and stiffening, which is very brief but likely represent focal seizures. For example, from 05:00-07:30, there are approximately 15 clinical push button events. Single lead EKG is not interpretable due to artifact. Impression: This is an abnormal EEG due to moderate diffuse slowing, further embedded slowing withinthe left hemispheric breach rhythm (seen within the context of prior neurosurgical intervention), most prominent in the parasaggital leads. There are frequent focal clinical seizures as described abovethat improve in duration with escalation of antiseizure medications. After approximately 16:30, ictal correlate is no longer definitively seen, although there are innumerable clinical push button events for very brief right lower extremity stiffening/raising when seen on video, which likely represent focal motor seizures not captured on EEG. Aylin Leblanc MD ABPN Certified, Neurology and Epilepsy 7:45 11/07/2021 Aylin Lewis MD - 11/05/2021 1146 EDTProcedure(s): EEG WITH PROLONGED BEDSIDE VIDEO MONITORING Images from the original note were not included. [facility] Name: Lizette Cardona Clinical Neurophysiology Laboratory [address] : 1955 [place], [place] Date: 11/05/2021 Video-Electroencephalographic Monitoring Report Referring Physician: Dr. Glover Clinical Indication: This is a 66 y.o.??female??with a PMHx significant for recently diagnosed glioblastoma and possible thyroid dysfunction who presents from outside hospital with concerns of a focal seizure (described as right arm and leg shaking with preserved awareness). Medications: Current Facility-Administered Medications Medication Route Frequency ??? acetaminophen (TYLENOL) tablet 500 mg oral Q4H PRN ??? bevacizumab-awwb (MVASI) 1,020 mg in sodium chloride (NS) 0.9 % 100 mL infusion intravenous Now ??? dexAMETHasone (DECADRON) tablet 8 mg oral BID ??? enoxaparin (LOVENOX) injection 40 mg subcutaneous DAILY ??? levETIRAcetam (KEPPRA) 1,000 mg in sodium chloride (NS) 0.9 % 100 mL IVPB intravenous Now ??? levETIRAcetam (KEPPRA) 1,500 mg in sodium chloride (NS) 0.9 % 100 mL IVPB intravenous Q12H ??? levothyroxine (SYNTHROID) tablet 100 mcg oral DAILY BEFORE BREAKFAST ??? lidocaine (PF) 10 mg/mL (1 %) injection 2 mg intradermal PRN ??? LORazepam (ATIVAN) injection 2 mg intravenous Now ??? NONFORMULARY MEDICATION 140 mg oral DAILY ??? ondansetron (ZOFRAN-ODT) disintegrating tablet 8 mg oral Q8H PRN ??? pantoprazole (PROTONIX) tablet 20 mg oral BID ??? polyethylene glycol 3350 (MIRALAX) packet 17 g oral Daily PRN ??? senna (SENOKOT) tablet 2 Tablet oral QHS ??? sulfamethoxazole-trimethoprim (BACTRIM/CO-TRIMOXAZOLE DS) 800-160 mg per tablet 1 Tablet oral Once per day on Tue Technical Description: Continuous digital video-digital electroencephalographic monitoring is performed. Silver/silver chloride EEG electrodes are placed according to the International 10-20 system as well as anterior temporal electrodes, a CPz recording reference and FCz ground contract. An ECG channel is also monitored. Caregivers are encouraged to maintain an event diary and to press and Event Button in the event of a seizure-like spell (Target Event). The entire EEG dataset is reviewed by the attending physician. No pain assessment for this procedure is necessary. Findings: The monitoring period begins 11/05/2021 at 07:01 and ends 11/06/2021 at 05:40. The background is continuous, reactive, mostly symmetric, and moderately organized with an anterior posterior gradient and a posterior dominant rhythm best seen over the right hemisphere of 8-9 Hz, although this is not well regulated and maintained. There is frequent diffuse polymophic slowing, lasting 1-5 seconds, consisting of theta-delta frequencies intermixed in the background. There is further intermittent polymorphic theta-delta slowing seen over the left hemisphere near continuously, most prominent in the left parasagittal chain, embedded within a breach rhythm from patient's known biopsy site, with higher amplitudes noted. There are clinically apparent seizures seen throughout the recording. Often the patient is covered by a blanket and movements are not well visualized on camera; however, she develops likely dystonic posturing of the right arm with facial grimace, +/- eye blinking late left head turn (not forced version). Reportedly, there is also right leg involvement with these events although this again is not wellappreciated. These can occur from both wakefulness and sleep (during which an arousal precedes the activity). ?? Electrographically, there is significant muscle artifact correlating with the onset of events; laterin the event, there appears to be semirhythmic sharply contoured theta that develops within the breach rhythm of the left posterior quadrant. It appears that ictal activity remains restricted to the left hemisphere. There is no significant postictal slowing. ?? Example of ictal correlate: ?? Events are brief, lasting ~10-30 seconds. During this recording, there are approximately 1-4 seizures per hour from the beginning of the recording until approximately 10:30. No further seizures are seen until approximately 15:25 where clinical seizures return, again averaging 1-4 per hour with duration of 10-60 seconds. Often a clinical push button event is noted by family at bedside with these seizures. In MAR review, it appears that electrographic improvement correlated with escalation of levetiracetam (1000 mg given at 09:32, 500 mg given at 12:00) and administration of lorazepam (2mg administered at 11:51). Frontal intermittent rhythmic delta activity is also occasionally present. Single lead EKG is not interpretable due to artifact. Impression: This is an abnormal EEG due to moderate diffuse slowing, further embedded slowing withinthe left hemispheric breach rhythm (seen within the context of prior neurosurgical intervention), most prominent in the parasaggital leads, and frequent focal brief clinical seizures, ranging from 1-4/hour, although there is abatement of these seizures from 10:30-15:25 with escalation of antiseizure medications. Findings communicated to primary team upon discovery. Aylin Leblanc MD ABPN Certified, Neurology and Epilepsy 11:47 11/05/2021 [facility] 11/04/2021 3341 EDTAssociated Order(s): EEG WITH PROLONGED BEDSIDE VIDEO MONITORINGProcedure(s): EEG WITH PROLONGED BEDSIDE VIDEO MONITORING [facility] Name: Lizette Cardona Clinical Neurophysiology Laboratory [address] [facility] : 1955 [place], [place] Date: 11/04/2021 Video-Electroencephalographic Monitoring Report Referring Physician: Dr. Arzate Clinical Indication: This is a 66 y.o.??female??with a PMHx significant for recently diagnosed glioblastoma and possible thyroid dysfunction who presents from outside hospital with concerns of a focal seizure (described as right arm and leg shaking with preserved awareness). Medications: Current Facility-Administered Medications Medication Route Frequency ??? acetaminophen (TYLENOL) tablet 500 mg oral Q4H PRN ??? bevacizumab-awwb (MVASI) 1,020 mg in sodium chloride (NS) 0.9 % 100 mL infusion intravenous Now ??? dexAMETHasone (DECADRON) tablet 8 mg oral BID ??? enoxaparin (LOVENOX) injection 40 mg subcutaneous DAILY ??? levETIRAcetam (KEPPRA) tablet 1,000 mg oral BID ??? levothyroxine (SYNTHROID) tablet 100 mcg oral DAILY BEFORE BREAKFAST ??? lidocaine (PF) 10 mg/mL (1 %) injection 2 mg intradermal PRN ??? NONFORMULARY MEDICATION 140 mg oral DAILY ??? ondansetron (ZOFRAN-ODT) disintegrating tablet 8 mg oral Q8H PRN ??? pantoprazole (PROTONIX) tablet 20 mg oral BID ??? polyethylene glycol 3350 (MIRALAX) packet 17 g oral Daily PRN ??? senna (SENOKOT) tablet 2 Tablet oral QHS ??? sulfamethoxazole-trimethoprim (BACTRIM/CO-TRIMOXAZOLE DS) 800-160 mg per tablet 1 Tablet oral Once per day on Tue Current Outpatient Medications Medication ??? acetaminophen (TYLENOL) 500 mg tablet ??? calcium carbonate (CALCIUM 500 ORAL) ??? calcium citrate 200 mg (950 mg) ??? dexAMETHasone (DECADRON) 4 mg tablet ??? diphenhydramine HCl (BENADRYL ALLERGY ORAL) ??? docusate sodium (COLACE) 100 mg capsule ??? levETIRAcetam (KEPPRA) 500 mg tablet ??? Levothyroxine 100 mcg capsule ??? Multivitamins with Minerals tablet tablet ??? ondansetron (ZOFRAN-ODT) 8 mg disintegrating tablet ??? pantoprazole (PROTONIX) 20 mg tablet ??? sodium chloride 1,000 mg soluble tablet ??? sulfamethoxazole-trimethoprim (BACTRIM/CO-TRIMOXAZOLE DS) 800-160 mg per tablet ??? temozolomide (TEMODAR) 140 mg capsule Technical Description: Continuous digital video-digital electroencephalographic monitoring is performed. Silver/silver chloride EEG electrodes are placed according to the International 10-20 system as well as anterior temporal electrodes, a CPz recording reference and FCz ground contract. An ECG channel is also monitored. Caregivers are encouraged to maintain an event diary and to press and Event Button in the event of a seizure-like spell (Target Event). The entire EEG dataset is reviewed by the attending physician. No pain assessment for this procedure is necessary. Findings: The monitoring period begins 11/04/21 at 06:40 and ends 11/05/2021 at 07:00. The background is continuous, reactive, mostly symmetric, and well organized with an anterior posterior gradient and a posterior dominant rhythm best seen over the right hemisphere of 8-9 Hz. ?? There is mild intermittent polymorphic slowing seen over the left hemisphere near continuously, mostprominent in the left parasagittal chain, embedded within a breach rhythm from patient's known biopsy site, with higher amplitudes noted. There are no interictal discharges, seizures or intentional clinical push button events noted. (Numerous unintentional button presses are seen.) Stage N2 sleep is represented by vertex waves and sleep spindles. Deeper stages of sleep are not seen. Single lead EKG is not interpretable due to artifact. Impression: This is a mildly abnormal EEG due to presence of embedded slowing within the left hemispheric breach rhythm (seen within the context of prior neurosurgical intervention), most prominent in the parasaggital leads. Clinical Correlation: Focal slowing indicates mild focal cerebrocortical dysfunction within this region and can be seen in the context of an underlying structural abnormality, postictal slowing, among other considerations. [facility] Leblanc MD [facility] Cert[facility], Neurology and Epilepsy 10:59 11/05/2021 documented in this encounter ED Notes Domingo Roque RN - 11/05/2021 1118 EDT Data: While walking by patient room noted patient to have left leg twitching. Pt alert at the time of the event and states,I'm just having a spasm. Action: Safety maintained. SR HR 70's on monitor and SPO2 95% on RA. notified. Response: Cont to monitor. DOMINGO ROQUE RN 11/05/2021 11:18 Paz Ricks RN - 11/04/2021 1551 EDT Off floor to MRI Meghan Sebastian RN - 11/04/2021 1158 EDT Pt moved to room 33 from room 3. Claribel Chang RN - 11/04/2021 1110 EDT Report given to LIZABETH Erickson. Relinquishing care of pt at this time. Claribel Chang RN - 11/04/2021 1041 EDT Per line maintenance technician, pt was unable to tolerate flushing of her IV and will be coming back to have her MRI done later today. Kennedy Gonzalez - 11/04/2021 0926 EDT 12 Lead EKG Performed by KENNEDY FAYE and shown to Jackelin Golver MD;Carito,*. Claribel Chang RN - 11/04/2021 0830 EDT Charted in error. Leanne Sanders MD - 11/04/2021 0309 EDT Emergency Department Visit This documentation is recorded by Elda Packer acting as Scribe under the direction and presence of Viki Turner MD and Leanne Garcia MD. Viki Turner MD and Leanne Garcia MD: I personally performed the services recorded by the scribe in my presence. I confirm the scribe's documentation has been reviewed by me to accurately and completely record my work, treatment, procedures, and medical decision making. Assessment and ED Course Patient with discussed past medical history presenting with chief complaint of seizures. The patientwas trasnferred from [facility] to be evaluated by Neurology and possible EEG after she experienced multiple seizures today. The patient has glioblastoma and began chemotherapy recently. Differential diagnosis includes but is not limited to intracranial mass, electrolyte abnormality, intracranial hemorrhage, seizure, intracranial infection. Patient reported seizures prior to arrival she is evidently confused here in the emergency department. Patient with normal pupillary exam but does have some right-sided deficits. Neurology service was consulted who promptly evaluated the patient the emergency room. Patient had already received seizureprophylaxis prior to arrival and did not have any progressive symptoms in the ED. Patient also admitted to neurology service for further evaluation. At this time, the patient was hemodynamically stable for admission to Neurology under the care of Dr. Guillory. Relevant Data as of Nov 05 1052 Wed Nov 04, 2021 0315 66 F with past medical history of glioblastoma presents from outside hospital with seizures. Patient is unable to provide much of her history, but states that she is not in any pain right now. Iveth and RN, patient was transferred here for further neuro work-up with concern for seizures in the s etting of GBM. She has been on radiation therapy, and just started chemotherapy with multiple seizures today. Outside hospital transferred for EEG and neurology work-up [EM] Relevant Data User Index [EM] Viki Turner MD Final diagnoses: Seizure ([facility]) ([facility] Disposition: Admitted Chief complaint: Seizures HPI Lizette Cardona is a 66 y.o. female with a history of glioblastoma who presents to the ED as a transfer from [facility] for seizures. Per EMS the patient currently has glioblastoma and she recently started chemotherapy. The patient had multiple seizures today and was transferred to be evaluated by Neurology and get an EEG. The patient denies being in any pain currently but is a mildly unreliable historian. The patient was given 2 doses of 1mg Ativan and 1000mg of Keppra at [facility]. History was provided by: EMS, EMR Patient's pertinent PMH, FH, SH were reviewed and edited as necessary. ROS A 10-point review of systems was performed. The patient answered negative to all questions with the exceptions of those explicitly detailed as positives in the HPI. Pertinent negatives are also explicitly stated. Physical Exam BP 132/63 Pulse 52 Temp 35.7 ??C (96.2 ??F) (Axillary) Resp 26 Ht 165.1 cm (65) Wt 68 kg (150 lb) SpO2 97% BMI 24.96 kg/m?? A medical screening exam was performed. Physical Exam Constitutional: Well appearing. NAD HEENT: Clear conjunctivae. No scleral icterus appreciated. Pupils round and reactive at 4/5. Right pupil is brisk, left is sluggish. Mouth: Moist oral mucosa without apparent lesions Neck: Full ROM. Trachea midline Heart: Irregular rhythm with frequent PACs on telemetry. Lungs: No evidence of respiratory distress. CTAB. Symmetric chest rise. Abdomen: Soft nontender, nondistended no evidence of rebound or guarding. Skin: Warm and dry. No overt rashes or lesions on exposed skin Extremities: No edema moving spontaneously, warm, palpable radial pulse. 4/5 plantar dorsiflexion onright lower extremity and 5/5 on left lower extremity. Neuro: CN grossly intact, normal speech. Psych: Appropriate mood and affect. Somewhat slow to respond. An EKG was obtained and independently interpreted. Imaging obtained was reviewed and independently interpreted. Laboratory data was reviewed and independently interpreted. Sinus, rate 54, intervals the normal limits, normal axis, overall low voltage. No ST elevation depressions. Nondiagnostic EKG. MR HEAD W WO CONTRAST Final Result 1. While the size of the large [...] for an enlarging/new site of multifocal disease. CT OUTSIDE IMAGES NEURO Final Result Procedures Procedures Associated attestation - Viki Turner MD - 11/05/2021 1120 EDT IViki MD, performed a history and exam of this patient and discussed the case with the resident. I have reviewed and edited this note, and the documentation is consistent with my findings, assessment and plan. I fully participated in the medical decision making. documented in this encounter Miscellaneous Notes Plan of Care - Maddy Howard RN - 11/13/2021 1014 EDT Nursing Discharge Note D: Patient noted with discharge orders to: [facility]. A: Prescriptions faxed to pharmacy. Reviewed discharge instructions and prescriptions with Patient IV d/c'd. Belongings collected and sent home with patient. Report called to Marianela at [facility]. R: Patient verbalized understanding of discharge instructions and denied further questions. MADDY HOWARD RN 11/13/2021 10:14 lan of Marcin - Marija Enciso RN - 11/13/2021 0606 EDT Data: Pt admitted with seizure-like activity now s/p EEG. Pt is alert and oriented x 1 to 2. Speech and movements are slow. PERRL. Unable to perform flexion and dorsiflexion on command but performing without prompting. Chemo precautions in place. Action: Monitored neuro status q4h overnight. Administered PO anti-epileptic meds. Encouraged repositions and turns overnight. Maintain pure-wick as appropriate and monitor for skin breakdown. Had BM this morning. Response: Continue to monitor for seizures and changes to mentation. Bed alarm remains lan of Marcin - Susie Haney RN - 11/12/2021 1827 EDT Problem: High Fall Risk: Goal: Patient will Remain Free of Falls due to Med. Side Effects Outcome: Ongoing Problem: High Fall Risk: Goal: Patient will Remain Free of Falls due to Altered Mobility Outcome: Ongoing Problem: Daily Care Plan Goals Goal: Care Plan Documentation Outcome: Met This Shift Flowsheets Taken 11/12/2021 1633 Goal This Shift: Patient will have increased mobility this shift Taken 11/12/2021 0832 Area of Focus: Neuro Status Data: Patient A&O to self and place this shift. VSS. Patient strength increased, alert and able to articulate needs. OOB to chair this shift with 2 assist and sarasteady. Patient stood at chair side with assistance - tolerated well. Patient with adequate po intake this shift - needs assistance feeding. +CMSTx4 intact. Action: Q2hr checks completed this shift, hourly rounding maintained, Q4 neuro checks maintained. Response: Patient agreeable to poc at this time, plan for d/c tomorrow AM to [facility]. Safety maintained. SUSIE HANEY RN 11/12/2021 18:27 lan of Care - Berto Jeff RN - 11/11/2021 1902 EDT Data: pt A&Ox1-2. Pt with slow speech and movements, follows some commands. Plan for OOB to chair with sera steady. Action: pt able to stand on sera steady platform, had large BM before moving to chair. OOB to chair for 2+ hours, tolerated well. Incontinent of urine x4 Response: patient back to bed with sera steady, cleaned and repositioned with each episode of incontinence. Purewick in place but working intermittently. Continue to monitor for skin integrity. BERTO JEFF RN 11/11/2021 19:02 lan of Care - Marija Enciso RN - 11/11/2021 0636 EDT Data: Pt admitted with seizure-like activity now s/p EEG. Pt is alert and oriented x 1 to 2. Speech and movements are slow. PERRL. Unable to perform flexion and dorsiflexion on command but performing without prompting. Chemo precautions in place. Action: Monitored neuro status q4h overnight. Administered PO anti-epileptic meds. Encouraged repositions and turns overnight. Maintain pure-wick as appropriate and monitor for skin breakdown. Had BM this morning. Response: Continue to monitor for seizures and changes to mentation. Bed alarm remains on lan of Care - Susie Haney RN - 11/10/2021 1929 EDT Problem: High Fall Risk: Goal: Patient will Remain Free of Falls due to Med. Side Effects Outcome: Ongoing Problem: High Fall Risk: Goal: Patient will Remain Free of Falls due to Altered Elimination Outcome: Ongoing Problem: Daily Care Plan Goals Goal: Care Plan Documentation Flowsheets Taken 11/10/2021 1503 Goal This Shift: Increased mobility this shift Taken 11/10/2021 0948 Area of Focus: Neuro Status Patient VSS, OOB to chair this shift with x2 assist and walker. +CMSTx4 intact. No s/s of seizure activity noted this shift. Patient drowsy, able to answer orientation questions to self and needs reorienting to place and time. Adequate po intake this shift. Safety maintained, call beavers within reach, hourly rounding in progress. lan of Care - Marija Martinez RN - 11/09/2021 2325 EDT Problem: Daily Care Plan Goals Goal: Care Plan Documentation Outcome: Ongoing Flowsheets (Taken 11/09/2021 1935) Area of Focus: Neuro Status Goal This Shift: Monitor for change in neuro status Note: Data: Pt admitted with seizure-like activity now s/p EEG. Pt is alert and oriented x 1. Repeats when asking orientation questions. Speech slow. Pupils reactive. Unable to perform flexion and dorsiflexion on command but performing without prompting. Cycle 1 day 4 of chemo Action: Monitored neuro status q4h overnight. Administered PO anti-epileptic meds. Encouraged repositions and turns overnight. Maintain pure-wick as appropriate and monitor for skin breakdown Response: Continue to monitor for seizures and changes to mentation. Bed alarm remains on MARIJA MARTINEZ RN 11/09/2021 23:21 Problem: Cognitive: Goal: Mental status/cognition is maintained/returned to baseline Outcome: Ongoing Problem: High Fall Risk: Goal: Patient will Remain Free of Falls due to Confusion Outcome: Ongoing lan of Care - Susie Haney RN - 11/09/2021 1812 EDT Problem: High Fall Risk: Goal: Patient will Remain Free of Falls due to Med. Side Effects Outcome: Ongoing Problem: High Fall Risk: Goal: Patient Will Remain Free from Fall-Related Injury Outcome: Ongoing Problem: SKIN INTEGRITY Goal: Skin integrity will improve or be maintained Outcome: Ongoing Problem: Daily Care Plan Goals Goal: Care Plan Documentation Flowsheets (Taken 11/09/2021 0949) Area of Focus: Neuro Status Goal This Shift: Neuro status will remain stable Data: Patient A&O to self and time this shift. VSS, generalized weakness fatigue noted upon assessment. Action: Neuro checks completed Q4 hours - no changes. Drowsiness noted. OOB to chair once this shiftwith x2 assist and sarasteady. Response: Neuro status maintained. SUSIE HANEY RN 11/09/2021 18:12 lan of Care - Nestor Kurtz RN - 11/09/2021 0624 EDT Data: Pt 66 yo/F, in for seizures. AOx1, drowsy, follows commands. generalized weakness. No noted seizure during shift. Incontinent of urine Action: Scheduled meds given. Hourly rounding done for safety. Incontinence care provided. Bed bath done. Response: No complains noted. NESTOR KURTZ RN 11/09/2021 6:24 Plan of Care - Roberth Vásquez RN - 11/08/2021 1247 EDT Data: Patient is drowsy oriented x 2 ,Total care with adl,s and feeding, purewick in place for incontinence Action: meds per MAR ,ALICIA STEADY OOB TO CHAIR Response: NO SEIZURE NOTICED FAMILY AT BEDSIDE ROBERTH VÁSQUEZ RN 11/08/2021 12:47 lan of Care - Nestor Kurtz RN - 11/08/2021 0622 EDT Data: Pt 66 yo/F, in for seizures. AOx1, drowsy, follows commands. generalized weakness. No noted seizure during shift. On purewick for urine incontinence. Action: Scheduled meds given. Hourly rounding done for safety. Incontinence care provided. Response: Pt rested comfortably overnight. NESTOR KURTZ RN 11/08/2021 6:22 Plan of Care - Roberth Vásquez RN - 11/07/2021 1452 EDT Data: Patient drowsy oriented to self ,follows simple commands one noted episode of right leg muscletightening lasted 15 seconds ,arouseable during episode Action:David HERNANDEZ notified ,EEG monitor in place Response: Less seizure activity noted this shift . ROBERTH VÁSQUEZ RN 11/07/2021 14:52 lan of Care - Bárbara Farley RN - 11/07/2021 0010 EDT Data: Pt had multiple seizures this shift, seizure activities include stiffening of RLE with right foot pointing out and clenching of RUE w/o loss of consciousness, on continued EEG monitoring in place, 1:1 at the bedside. Action: Meds given as ordered, notified about frequent seizure activities, kept safe, will continue to monitor. Response: Pt resting in bed, 1:1 sitter remains at the bedside, no seizures after anti-seizure medications administered. BÁRBARA FARLEY RN 11/07/2021 0:11 lan of Care - Mike Goodman RN - 11/06/2021 1930 EDT Focus: Chemotherapy Administration Data: Pt is 66 y.o. female on Day 1 Cycle 1 of Bevacizumab for Glioblastoma. Pt to receive Bevacizumab. Action: Chemo check conducted by charge. Pt noted with PIV for IV access. IV flushed, site unremarkable, brisk blood return noted before infusion. Treatment plan reviewed with patient and family. Administered list chemo meds utilizing safe handling techniques. Response: IV site remains unremarkable. Pt tolerating biotherapy treatment at this time with no signs of reaction or side effects. MIKE GOODMAN RN 11/06/2021 19:30 lan of Care - Imani Eubanks RN - 11/06/2021 1838 EDT Problem: Daily Care Plan Goals Goal: Care Plan Documentation Outcome: Ongoing Flowsheets (Taken 11/06/2021 0900) Area of Focus: Neuro Status Goal This Shift: Monitor Neuro status Data: Assumed care of Pt at 0700. Pt is Alert to self and knows that she is in the hospital but thinks it is [facility]. PERRLA, strong throughout. On EEG monitoring having several witnessed seizures throughout the day. Pt is aware when seizures are occurring, right arm clenches, rt leg stiffens and raises off of bed. Pt can hear staff and family when they are occurring. Action: Assessment, hourly rounds, and neuro VS completed. Scheduled medications given per MAR. 2X NOW doses IV ativan administered per MAR for seizures. Response: Pt appears uncomfortable during seizure activity. No acute neuro changes from seizure activity. Pt rested intermittently post IV Ativan. Family have been at bedside most of the day. Will continue to monitor and adjust interventions as needed. IMANI EUBANKS RN 11/06/2021 18:38 lan of Marcin - Mayelin Villar RN - 11/06/2021 0549 EDT Problem: Daily Care Plan Goals Goal: Care Plan Documentation Flowsheets (Taken 11/05/2021 2300) Area of Focus: Neuro Status Goal This Shift: montior neuro status Data: Pt presents with seizures following chemo for glioblastoma. Pt is alert to self and place intermittently. Seizure activity did occur periodically throughout the night. EEG continued. Action: Q4 NVS. Administered medications per MAR. Clustered care to promote rest. Response: NVS stable overnight. Pt rested comfortably. MAYELIN VILLAR RN 11/06/2021 5:49 lan of Care - Miley Hogue RN - 11/05/2021 0252 EDT Problem: Daily Care Plan Goals Goal: Care Plan Documentation Outcome: Ongoing Data: Pt. Admitted to ED boarders for seizure disorder after recently starting chemo for glioblastoma. Pt. Is A&O x1-2, aware that she is in hospital but thinks its [facility]. Knows who is current president but does not know current date. Denies pain. Helps turn with assist, follows commands. Pleasant. On continuous EEG monitoring. Action: Bed alarm on for safety - does not use call light and tries to get up when needs to void - Needs cueing to utilize purewick. Neuro/VS q4hrs. Response: Neuro remains unchanged. VSS. WCM. documented in this encounter Plan of Treatment Scheduled Referrals Name Type Priority Associated Order Schedule Diagnoses AMB CONS/FOLLOW Outpatient Routine/Next Seizure (HCC-CMS) Expecte d: UP NEUROLOGY Referral Available ([facility]) 11/27/2021 Glioblastoma (HCC) (Approxim ate), Expires: 11/13/2022 AMB CONS/FOLLOW Outpatient Routine/Next Seizure (HCC-CMS) Expecte d: UP RADIATION Referral Available ([facility]) 11/30/2021 ONCOLOGY Glioblastoma (HCC) (Approxim ate), Expires: 11/13/2022 documented as of this encounter Procedures Procedure [...] in the results section. POCT GLUCOSE, Routine 11/10/2021 [...] in the results section. POCT GLUCOSE, Routine 11/09/2021 [...] n the results section. VALPROIC ACID LEVEL Add-On 11/09/2021 7:29 Resul ts for this EDT procedure are i n the results section. HEPATIC FUNCTION Add-On 11/09/2021 7:29 Results for this PANEL (ALB,ALK EDT procedure are in PHOS,ALT,AST,DBIL,TOT the re sults GEOFF,TOT PROT) section. BASIC METABOLIC PANEL Routine 11/09/2021 7:29 [...] ure are in REFLEX the results section. COVID-19 TEST [facility] STAT 11/04/2021 5:05 LAB PCR EDT COVID-19 TESTING STAT 11/04/2021 5:05 Results for this EDT procedure are i n the results section. HOLD GREEN TOP Routine [...] section. documented in this encounter Results (ABNORMAL) COMPLETE BLOOD COUNT (11/13/2021 8:26 EDT) Pathologist Sig nature WBC 6.00 4.00 - 12.40 K/cmm [facility] SERVICES RBC 4.16 3.86 - 5.04 M/cmm [facility] Hemoglobin 13.8 11.6 - 15.2 gm/dL [facility] HCT 40.0 34.9 - 44.4 % [facility] MCV 96 81 - [address] [facility] MCH 33.2 26.7 - 33.[address] [facility] MCHC 34.5 32.1 - 35.9 gm/dL [facility] RDW-CV 13.7 <14.7 % [facility] RDW-SD 48.5 <50.[address] [facility] PLT 98 (L) 141 - 377 K/cmm [facility] MPV 10.3 9.5 - 12.[address] [facility] Specimen Blood - Venous blood (substance) Performing Organization Address City/State/ZIP Code Phon e Number [facility] [address] [place] [address] SERVICES (ABNORMAL) COMPREHENSIVE METABOLIC PANEL (CMP) (11/13/2021 8:25 EDT) Sodium 136 136 - [address] [facility] mmol/L LABORATORY SERVICES Potassium 4.0 3.5 - 5.[address] [facility] mmol/L LABORATORY SERVICES Chloride 99 96 - 110 mmol/L [facility] CO2 Total 26 22 - 32 mmol/L [facility] Glucose 81 70 - 100 mg/dL [facility] BUN 27 (H) 10 - 26 mg/dL [facility] Creatinine 0.44 (L) 0.52 - 1.[address] [facility] mg/dL LABORATORY SERVICES eGFR 105 >[address] [facility] mL/min/1.73m2 LABORATORY SERVICES Total Protein 5.1 (L) 6.3 - 8.2 g/dL [facility] Albumin 3.1 (L) 3.4 - 4.9 g/dL [facility] Alkaline Phosphatase 50 38 - 126 U/L [facility] AST 21 15 - 46 U/L [facility] ALT 34 <35 U/L [facility] Bilirubin, Total 0.7 <1.4 mg/dL [facility] Calcium 8.3 (L) 8.5 - 10.[address] [facility] mg/dL LABORATORY SERVICES Albumin/Globulin 1.6 1.0 - 2.[address] [facility] Ratio LABORATORY SERVICES Anion Gap 11 5 - [address] [facility] SERVICES Specimen Blood - Venous blood (substance) Performing Organization Address City/State/ZIP Code Phon e Number [facility] [address] [place] [address] SERVICES (ABNORMAL) POCT GLUCOSE, INTERFACED (11/12/2021 18:01 EDT) Glucose, POC 140 (H) 70 - [address] [facility] mg/dL LABORATORY SERVICES HN LAB POC COMMENT Test Performed by [facility] (GLUCOSE) Nursing Services LABORATORY SERVICES Specimen Blood - Capillary blood (substance) Performing Organization Address City/State/ZIP Code Phon e Number [facility] [address] [place] [phone] SERVICES COVID-19 TEST [facility] LAB PCR (11/12/2021 10:59 EDT) Specimen Swab - Entire nasopharynx (body structur e) Performing Organization Address [facility]/ZIP Code Phon e Number [facility] [address] [place] [phone] SERVICES COVID-19 TESTING (11/12/2021 10:59 EDT) COVID-19 rt-PCR Negative Negative [facility] Result LABORATORY SERVICES Performing Lab GeneXpert [facility] Lab LABORATORY SERVICES Specimen Swab - Entire nasopharynx (body structur e) Performing Organization Address [facility]/ZIP Code Phon e Number [facility] [address] [place] [phone] SERVICES AMMONIA (11/12/2021 8:32 EDT) Pathologist Sig nature Ammonia <9 <34 umol/L [facility] LABORATOR Y SERVICES Specimen Blood - Venous blood (substance) Performing Organization Address [facility]/[place] [facility] e Number [facility] [address] [place] [address] SERVICES (ABNORMAL) COMPREHENSIVE METABOLIC PANEL (CMP) (11/12/2021 8:32 EDT) Sodium 134 (L) 136 - [address] [facility] mmol/L LABORATORY SERVICES Potassium 4.1 3.5 - 5.[address] [facility] mmol/L LABORATORY SERVICES Chloride 97 96 - 110 mmol/L [facility] SERVICES CO2 Total 28 22 - 32 mmol/L [facility] SERVICES Glucose 150 (H) 70 - 100 mg/dL [facility] SERVICES BUN 22 10 - 26 mg/dL [facility] SERVICES Creatinine 0.48 (L) 0.52 - 1.[address] [facility] mg/dL LABORATORY SERVICES eGFR 103 >[address] [facility] mL/min/1.73m2 LABORATORY SERVICES Total Protein 5.4 (L) 6.3 - 8.2 g/dL [facility] SERVICES Albumin 3.1 (L) 3.4 - 4.9 g/dL [facility] SERVICES Alkaline Phosphatase 49 38 - 126 U/L [facility] LABORAT[facility] SERVICES AST 25 15 - 46 U/L [facility] LABORATORY SERVICES ALT 31 <35 U/L [facility]ORY SERVICES Bilirubin, Total 0.7 <1.4 mg/dL [facility] SERVICES Calcium 8.1 (L) 8.5 - 10.[address] [facility] mg/dL LABORATORY SERVICES Albumin/Globulin 1.3 1.0 - 2.[address] [facility] Ratio LABORATORY SERVICES Anion Gap 9 5 - [address] [facility] LABORATORY SERVICES Specimen Blood - Venous blood (substance) Performing Organization Address [facility]/ZIP Code Phon e Number [facility] [address] [place] [address] SERVICES (ABNORMAL) COMPLETE BLOOD COUNT (11/12/2021 8:32 EDT) Pathologist Sig nature WBC 5.74 4.00 - 12.40 K/cmm [facility] SERVICES RBC 4.30 3.86 - 5.04 [facility] Hemoglobin 14.2 11.6 - 15.2 gm/dL [facility] SERVICES HCT 41.5 34.9 - 44.4 % [facility] SERVICES MCV 97 81 - [address] [facility] SERVICES MCH 33.0 26.7 - 33.[address] [facility]ATORY SERVICES MCHC 34.2 32.1 - 35.9 gm/dL [facility]ATORY SERVICES RDW-CV 13.9 <14.7 % [facility] LABORATORY SERVICES RDW-SD 49.2 <50.[address] [facility] LABORATORY SERVICES PLT 73 (L) 141 - 377 K/[facility] LABORATORY SERVICES MPV 10.8 9.5 - 12.[address] [facility] LABORATORY SERVICES Specimen Blood - Venous blood (substance) Performing Organization Address City/[facility]/ZIP Code Phon e Number [facility] [address] [place] [address] SERVICES (ABNORMAL) POCT GLUCOSE, INTERFACED (11/12/2021 7:48 EDT) Glucose, POC 107 (H) 70 - [address] [facility] mg/dL LABORATORY SERVICES HN LAB POC COMMENT Test Performed by [facility] (GLUCOSE) Nursing Services LABORATORY SERVICES Specimen Blood - Capillary blood (substance) Performing Organization Address City/[facility]/ZIP Code Phon e Number [facility] [address] [place] [address] SERVICES (ABNORMAL) POCT GLUCOSE, INTERFACED (11/11/2021 18:07 EDT) Glucose, POC 143 (H) 70 - [address] [facility] mg/dL LABORATORY SERVICES HN LAB POC COMMENT Test Performed by [facility] (GLUCOSE) Nursing Services LABORATORY SERVICES Specimen Blood - Capillary blood (substance) Performing Organization Address [facility] Phon e Number [facility] [address] [place] [address] SERVICES (ABNORMAL) POCT GLUCOSE, INTERFACED (11/11/2021 8:14 EDT) Glucose, POC 101 (H) 70 - [address] [facility] mg/dL LABORATORY SERVICES HN LAB POC COMMENT Test Performed by [facility] (GLUCOSE) Nursing Services LABORATORY SERVICES Specimen Blood - Capillary blood (substance) Performing Organization Address [facility] Phon e Number [facility] [address] [place] [address] SERVICES (ABNORMAL) COMPREHENSIVE METABOLIC PANEL (CMP) (11/11/2021 7:48 EDT) Sodium 130 (L) 136 - [address] [facility] mmol/L LABORATORY SERVICES Potassium 4.2 3.5 - 5.[address] [facility] mmol/L LABORATORY SERVICES Chloride 97 96 - 110 mmol/L [facility] LABORATORY SERVICES CO2 Total 28 22 - 32 mmol/L [facility] LABORATORY SERVICES Glucose 89 70 - 100 mg/dL [facility] LABORATORY SERVICES BUN 25 10 - 26 mg/dL [facility] SERVICES Creatinine 0.43 (L) 0.52 - 1.[address] [facility] mg/dL LABORATORY SERVICES eGFR 106 >[address] [facility] mL/min/1.73m2 LABORATORY SERVICES Total Protein 5.1 (L) 6.3 - 8.2 g/dL [facility] LABORATORY SERVICES Albumin 2.9 (L) 3.4 - 4.9 g/dL [facility] LABORATORY SERVICES Alkaline Phosphatase 41 38 - 126 U/L [facility] LABORATORY SERVICES AST 21 15 - 46 U/L [facility] LABORATORY SERVICES ALT 24 <35 U/L [facility]ORY SERVICES Bilirubin, Total 0.8 <1.4 mg/dL [facility]ATORY SERVICES Calcium 8.2 (L) 8.5 - 10.[address] [facility] mg/dL LABORATORY SERVICES Albumin/Globulin 1.3 1.0 - 2.[address] [facility] Ratio LABORATORY SERVICES Anion Gap 5 5 - [address] [facility] LABORATORY SERVICES Specimen Blood - Venous blood (substance) Performing Organization Address [facility]/ZIP Code Phon e Number [facility] [address] [place] [address] SERVICES (ABNORMAL) COMPLETE BLOOD COUNT (11/11/2021 7:48 EDT) Pathologist Sig nature WBC 6.35 4.00 - 12.40 K/cmm [facility] SERVICES RBC 4.29 3.86 - 5.04 M/cmm [facility] SERVICES Hemoglobin 14.2 11.6 - 15.2 gm/dL [facility]ATORY SERVICES HCT 40.4 34.9 - 44.4 % [facility] LABORATORY SERVICES MCV 94 81 - [address] [facility] LABORATORY SERVICES MCH 33.1 26.7 - 33.[address] [facility] LABORATORY SERVICES MCHC 35.1 32.1 - 35.9 gm/dL [facility] LABORATORY SERVICES RDW-CV 13.6 <14.7 % [facility] LABOR[facility]ORY SERVICES RDW-SD 47.0 <50.[address] [facility] LABORATORY SERVICES PLT 66 (L) 141 - 377 [facility] MPV 10.6 9.5 - 12.[address] [facility] LABORATORY SERVICES Specimen Blood - Venous blood (substance) Performing Organization Address [facility]/ZIP Code Phon e Number [facility] [address] [place] [phone] SERVICES POCT GLUCOSE, INTERFACED (11/10/2021 17:32 EDT) Glucose, POC 96 70 - [address] [facility] mg/dL LABORATORY SERVICES HN LAB POC COMMENT Test Performed by [facility] (GLUCOSE) Nursing Services LABORATORY SERVICES Specimen Blood - Capillary blood (substance) Performing Organization Address City/[facility]/ZIP Code Phon e Number [facility] [address] [place] [phone] SERVICES URINE ELECTROLYTES (11/10/2021 14:11 EDT) Sodium, Urine 46.7 See Note [facility] MED[facility] Comment: mmol/L CENTER LABORATORY NOTE: SERVICES Reference range has not been established for sodium concentration in random urine specimens. Potassium, Urine 24.3 See Note [facility] MED[facility] Comment: mmol/L CENTER LABORATORY NOTE: SERVICES Reference range has not been established for potassium concentration in random urine specimens. Chloride, Urine 57 See Note [facility] MED[facility] Comment: mmol/L [place] LABORAT[facility] NOTE: SERVICES Reference range has not been established for chloride concentration in random urine specimens. Specimen Urine - Urine specimen collection, clean catch (procedure) Performing Organization Address City/[facility]/ZIP Code Phon e Number [facility] [address] [place] [address] SERVICES OSMOLALITY, URINE (11/10/2021 14:11 EDT) Pathologist Sig nature Osmolality, Urine 448 150-1,150 mOsm/kg [facility] LABORATORY SERVICES Specimen Urine - Urine specimen collection, clean catch (procedure) Performing Organization Address [facility] Phon e Number [facility] [address] [place] [address] SERVICES (ABNORMAL) COMPREHENSIVE METABOLIC PANEL (CMP) (11/10/2021 6:45 EDT) Sodium 130 (L) 136 - [address] [facility] mmol/L LABORATORY SERVICES Potassium 4.3 3.5 - 5.[address] [facility] mmol/L LABORATORY SERVICES Chloride 95 (L) 96 - 110 mmol/L [facility] LABORATORY SERVICES CO2 Total 28 22 - 32 mmol/L [facility]ORY SERVICES Glucose 89 70 - 100 mg/dL [facility] LABORATORY SERVICES BUN 24 10 - 26 mg/dL [facility]ORY SERVICES Creatinine 0.46 (L) 0.52 - 1.[address] [facility] mg/dL LABORATORY SERVICES eGFR 104 >[address] [facility] mL/min/1.73m2 LABORATORY SERVICES Total Protein 5.2 (L) 6.3 - 8.2 g/dL [facility] LABORATORY SERVICES Albumin 3.0 (L) 3.4 - 4.9 g/dL [facility] LABORATORY SERVICES Alkaline Phosphatase 46 38 - 126 U/L [facility] LABORATORY SERVICES AST 18 15 - 46 U/L [facility] LABORATORY SERVICES ALT 25 <35 U/L [facility]ORY SERVICES Bilirubin, Total 0.8 <1.4 mg/dL [facility]ATORY SERVICES Calcium 8.2 (L) 8.5 - 10.[address] [facility] mg/dL LABORATORY SERVICES Albumin/Globulin 1.4 1.0 - 2.[address] [facility] Ratio LABORATORY SERVICES Anion Gap 7 5 - [address] [facility] LABORATORY SERVICES Specimen Blood - Venous blood (substance) Performing Organization Address City/State/ZIP Code Phon e Number [facility] [address] [place] [address] SERVICES (ABNORMAL) COMPLETE BLOOD COUNT (11/10/2021 6:45 EDT) Pathologist Sig nature WBC 7.34 4.00 - 12.40 K/cmm [facility] LAB[facility] SERVICES RBC 4.50 3.86 - 5.04 M/cmm [facility] SERVICES Hemoglobin 14.6 11.6 - 15.2 gm/dL [facility] SERVICES HCT 42.1 34.9 - 44.4 % [facility] LABORATORY SERVICES MCV 94 81 - [address] [facility] LAB[facility]ATORY SERVICES MCH 32.4 26.7 - 33.[address] [facility] LABORATORY SERVICES MCHC 34.7 32.1 - 35.9 gm/dL [facility] LABORATORY SERVICES RDW-CV 13.7 <14.7 % [facility] LABOR[facility] SERVICES RDW-SD 47.4 <50.[address] [facility] LABORATORY SERVICES PLT 80 (L) 141 - 377 [facility] MPV 9.7 9.5 - 12.[address] [facility] LABORATORY SERVICES Specimen Blood - Venous blood (substance) Performing Organization Address City/[facility]/ZIP Code Phon e Number [facility] [address] [place] [address] SERVICES (ABNORMAL) POCT GLUCOSE, INTERFACED (11/09/2021 19:27 EDT) Glucose, POC 126 (H) 70 - [address] [facility] mg/dL LABORATORY SERVICES HN LAB POC COMMENT Test Performed by [facility] (GLUCOSE) Nursing Services LABORATORY SERVICES Specimen Blood - Capillary blood (substance) Performing Organization Address City/State/ZIP Code Phon e Number [facility] [address] [place] [address] SERVICES (ABNORMAL) AMMONIA (11/09/2021 15:19 EDT) Pathologist Sig nature Ammonia 49 (H) <34 umol/L [facility] LABORATOR Y SERVICES Specimen Blood - Venous blood (substance) Performing Organization Address City/State/ZIP Code Phon e Number [facility] [address] [place] [address] SERVICES CARNITINE, SERUM (11/09/2021 7:29 EDT) Total 53 34 - 78 [facility] [facility] nmol/mL LABORATORIES Free (FC) 44 25 - 54 [facility] nmol/mL LABORATORIES Acylcarnitine (AC) 9 5 - 30 [facility] nmol/mL LABORATORIES AC/FC Ratio 0.2 0.1 - 0.8 [facility] LABORATORIES Interpretation SEE NOTE [facility] Comment: LABORATORIES RESULT: In this sample, the carnitine profile was norm al. ADDITIONAL INFORMATION ------ This test was developed and its performance characteri stics determined by [facility] in a manner consistent with CLIA requirements. This test has not been cleared or approv ed by the U.S. Food and Drug Administration. Test Performed by: [address] [address] [employer]: Dez Pratt M.D. Ph.D.; CLIA# [id number] Specimen Blood - Venous blood (substance) Performing Organization Address City/State/ZIP Code Phon e Number [facility] LABORATORIES [address] [place] [id number] (ABNORMAL) HEPATIC FUNCTION PANEL (ALB,ALK PHOS,ALT,AST,DBIL,TOT GEOFF,TOT PROT) (11/09/2021 7:29 EDT) Total Protein 5.2 (L) 6.3 - 8.2 g/dL [facility] LABORATORY SERVICES Albumin 3.1 (L) 3.4 - 4.9 g/dL [facility] LABORATORY SERVICES Bilirubin, Total 0.8 <1.4 mg/dL [facility] LABORATORY SERVICES Conjugated Bilirubin 0.0 <=0.3 mg/dL [facility] LABORATORY SERVICES Unconjugated Bilirubin 0.7 <=1.1 mg/dL [facility] LABORATORY SERVICES Alkaline Phosphatase 42 38 - 126 U/L [facility] LABORATORY SERVICES ALT 24 <35 U/L [facility] LABORATORY SERVICES AST 21 15 - 46 U/L [facility] LABORATORY SERVICES Calculated Total 0.7 <1.4 mg/dL [facility] Bilirubin LABORATORY SERVICES Specimen Blood - Venous blood (substance) Performing Organization Address City/[facility]/ZIP Code Phon e Number [facility] LABORATORY [address] [place] [address] SERVICES VALPROIC ACID LEVEL (11/09/2021 7:29 EDT) Pathologist Sig nature Valproic Acid 89 50 - 100 ug/mL [facility] LABORATORY SERVICES Specimen Blood - Venous blood (substance) Performing Organization Address [facility]/ZIP Code Phon e Number [facility] LABORATORY [address] [place] [address] SERVICES (ABNORMAL) BASIC METABOLIC PANEL (BMP) (11/09/2021 7:29 EDT) Pathologist Sig nature Sodium 131 (L) 136 - 145 mmol/L [facility] LABORATORY SERVICES Potassium 4.4 3.5 - 5.0 mmol/L [facility] LABORATORY SERVICES Chloride 96 96 - 110 mmol/L [facility] LABORATORY SERVICES CO2 Total 28 22 - 32 mmol/L [facility] LABORATORY SERVICES Anion Gap 7 5 - [address] [facility] LABORATORY SERVICES Glucose 94 70 - 100 mg/dL [facility] LABORATORY SERVICES Calcium 8.2 (L) 8.5 - 10.5 mg/dL [facility] LABORATORY SERVICES BUN 24 10 - 26 mg/dL [facility] LABORATORY SERVICES Creatinine 0.47 (L) 0.52 - 1.04 mg/dL [facility] LABORATORY SERVICES eGFR 104 >60 mL/min/1.73m2 [facility] LABORATORY SERVICES Specimen Blood - Venous blood (substance) Performing Organization Address [facility]/ZIP [facility] Phon e Number [facility] LABORATORY [address] [place] [address] SERVICES (ABNORMAL) COMPLETE BLOOD COUNT (11/09/2021 7:29 EDT) Pathologist Sig nature WBC 5.90 4.00 - 12.40 K/cmm [facility] LABORATORY SERVICES RBC 4.23 3.86 - 5.04 M/cmm [facility] LABORATORY SERVICES Hemoglobin 14.0 11.6 - 15.2 gm/dL [facility] LABORATORY SERVICES HCT 39.3 34.9 - 44.4 % [facility] LABORATORY SERVICES MCV 93 81 - [address] [facility] LABORATORY SERVICES MCH 33.1 26.7 - 33.[address] [facility] LABORATORY SERVICES MCHC 35.6 32.1 - 35.9 gm/dL [facility] LABORATORY SERVICES RDW-CV 14.0 <14.7 % [facility] LABORATORY SERVICES RDW-SD 47.2 <50.[address] [facility] LABORATORY SERVICES PLT 73 (L) 141 - 377 K/cmm [facility] LABORATORY SERVICES MPV 9.1 (L) 9.5 - 12.[address] [facility] LABORATORY SERVICES Specimen Blood - Venous blood (substance) Performing Organization Address [facility] Phon e Number [facility] LABORATORY [address] [place] [address] SERVICES (ABNORMAL) POCT GLUCOSE, INTERFACED (11/08/2021 7:35 EDT) Glucose, POC 104 (H) 70 - [address] [facility] mg/dL LABORATORY SERVICES HN LAB POC COMMENT Test Performed by [facility] Emerson (GLUCOSE) Nursing Services LABORATORY SERVICES Specimen Blood - Capillary blood (substance) Performing Organization Address [facility] Phon e Number [facility] LABORATORY [address] [place] [address] SERVICES (ABNORMAL) BASIC METABOLIC PANEL (BMP) (11/08/2021 6:51 EDT) Pathologist Sig nature Sodium 130 (L) 136 - 145 mmol/L [facility] LABORATORY SERVICES Potassium 4.1 3.5 - 5.0 mmol/L [facility] LABORATORY SERVICES Chloride 97 96 - 110 mmol/L [facility] LABORATORY SERVICES CO2 Total 26 22 - 32 mmol/L [facility] LABORATORY SERVICES Anion Gap 7 5 - [address] [facility] LABORATORY SERVICES Glucose 105 (H) 70 - 100 mg/dL [facility] LABORATORY SERVICES Calcium 8.3 (L) 8.5 - 10.5 mg/dL [facility] LABORATORY SERVICES BUN 23 10 - 26 mg/dL [facility] LABORATORY SERVICES Creatinine 0.48 (L) 0.52 - 1.04 mg/dL [facility] LABORATORY SERVICES eGFR 103 >60 mL/min/1.73m2 [facility] LABORATORY SERVICES Specimen Blood - Venous blood (substance) Performing Organization Address [facility]/ZIP [facility] Phon e Number [facility] LABORATORY [address] [place] [address] SERVICES (ABNORMAL) COMPLETE BLOOD COUNT (11/08/2021 6:51 EDT) Pathologist Sig nature WBC 7.78 4.00 - 12.40 K/cmm [facility] LABORATORY SERVICES RBC 4.27 3.86 - 5.04 M/cmm [facility] LABORATORY SERVICES Hemoglobin 14.4 11.6 - 15.2 gm/dL [facility] LABORATORY SERVICES HCT 39.3 34.9 - 44.4 % [facility] LABORATORY SERVICES MCV 92 81 - [address] [facility] LABORATORY SERVICES MCH 33.7 (H) 26.7 - 33.[address] [facility] LABORATORY SERVICES MCHC 36.6 (H) 32.1 - 35.9 gm/dL [facility] LABORATORY SERVICES RDW-CV 13.9 <14.7 % [facility] LABORATORY SERVICES RDW-SD 47.0 <50.[address] [facility] LABORATORY SERVICES PLT 80 (L) 141 - 377 K/cmm [facility] LABORATORY SERVICES MPV 9.0 (L) 9.5 - 12.[address] [facility] LABORATORY SERVICES Specimen Blood - Venous blood (substance) Performing Organization Address City/[facility] Phon e Number [facility] LABORATORY [address] [place] [address] SERVICES (ABNORMAL) POCT GLUCOSE, INTERFACED (11/07/2021 18:33 EDT) Glucose, POC 180 (H) 70 - [address] [facility] mg/dL LABORATORY SERVICES HN LAB POC COMMENT Test Performed by [facility] MARIELLE Emerson (GLUCOSE) Nursing Services LABORATORY SERVICES Specimen Blood - Capillary blood (substance) Performing Organization Address [facility] Phon e Number [facility] LABORATORY [address] [place] [address] SERVICES EEG WITH PROLONGED BEDSIDE VIDEO MONITORING (11/07/2021 16:33 EDT) Narrative [facility] POINT OF CARE - 11/07/2021 16:33 E Aylin Barnes MD ? 11/07/2021 16:38 [facility] ??Name: Lizette Snider Brendan Clinical Neurophysiology Laboratory ??MR N: [id number] [address] [facility] ? : 1955 [place], [place] ?Date: 022 Video-Electroencephalographic Monitoring Report Referring [...] EEG [facility] as well as anterior [...] Address City/State/ZIP Code Phon e Number [facility] POINT OF CARE HOLD GREEN TOP (11/07/2021 11:25 EDT) Pathologist Sig nature Hold Hold [facility] LABORATOR Y SERVICES Specimen Blood - Venous blood (substance) Performing Organization Address City/State/ZIP Code Phon e Number [facility] LABORATORY [address] [place] [address] SERVICES (ABNORMAL) BASIC METABOLIC PANEL (BMP) (11/07/2021 11:06 EDT) Sodium 130 (L) 136 - [address] [facility] mmol/L LABORATORY SERVICES Potassium 4.1Comment: 3.5 - 5.[address] [facility] Moderate hemolysis mmol/L LABORATORY SERVICES identified, interpret with caution as hemolysis will elevate potassium result. Chloride 98 96 - 110 mmol/L [facility] LABORATORY SERVICES CO2 Total 22 22 - 32 mmol/L [facility] LABORATORY SERVICES Anion Gap 10 5 - [address] [facility] LABORATORY SERVICES Glucose 139 (H) 70 - 100 mg/dL [facility] LABORATORY SERVICES Calcium 8.3 (L) 8.5 - 10.[address] [facility] mg/dL LABORATORY SERVICES BUN 21Comment: Moderate 10 - 26 mg/dL [facility] hemolysis LABORATORY SERVICES identified, interpret with caution as results may be affected due to hemolysis. Creatinine 0.48 (L) 0.52 - 1.[address] [facility] mg/dL LABORATORY SERVICES eGFR 103 >[address] [facility] mL/min/1.73m2 LABORATORY SERVICES Specimen Blood - Venous blood (substance) Performing Organization Address City/State/ZIP Code Phon e Number [facility] LABORATORY [address] [place] [address] SERVICES (ABNORMAL) VALPROIC ACID LEVEL (11/07/2021 11:06 EDT) Pathologist Sig nature Valproic Acid 125 (H) 50 - 100 ug/mL [facility] LABORATORY SERVICES Specimen Blood - Venous blood (substance) Performing Organization Address City/State/ZIP Code Phon e Number [facility] LABORATORY [address] [place] [address] SERVICES (ABNORMAL) COMPLETE BLOOD COUNT (11/07/2021 11:05 EDT) Pathologist Sig nature WBC 7.42 4.00 - 12.40 K/cmm [facility] LABORATORY SERVICES RBC 4.52 3.86 - 5.04 M/cmm [facility] LABORATORY SERVICES Hemoglobin 14.9 11.6 - 15.2 gm/dL [facility] LABORATORY SERVICES HCT 43.1 34.9 - 44.4 % [facility] LABORATORY SERVICES MCV 95 81 - [address] [facility] LABORATORY SERVICES MCH 33.0 26.7 - 33.[address] [facility] LABORATORY SERVICES MCHC 34.6 32.1 - 35.9 gm/dL [facility] LABORATORY SERVICES RDW-CV 13.9 <14.7 % [facility] LABORATORY SERVICES RDW-SD 48.6 <50.[address] [facility] LABORATORY SERVICES PLT 95 (L) 141 - 377 K/cmm [facility] LABORATORY SERVICES MPV 10.4 9.5 - 12.[address] [facility] LABORATORY SERVICES Specimen Blood - Venous blood (substance) Performing Organization Address City/[facility]/ZIP Code Phon e Number [facility] LABORATORY [address] [place] [address] SERVICES (ABNORMAL) POCT GLUCOSE, INTERFACED (11/07/2021 8:09 EDT) Glucose, POC 111 (H) 70 - [address] [facility] mg/dL LABORATORY SERVICES HN LAB POC COMMENT Test Performed by [facility] [employer] R (GLUCOSE) Nursing Services LABORATORY SERVICES Specimen Blood - Capillary blood (substance) Performing Organization Address [facility]/ZIP Code Phon e Number [facility] LABORATORY [address] [place] [address] SERVICES (ABNORMAL) POCT GLUCOSE, INTERFACED (11/06/2021 19:49 EDT) Glucose, POC 127 (H) 70 - [address] [facility] mg/dL LABORATORY SERVICES HN LAB POC COMMENT Test Performed by [facility] [employer] R (GLUCOSE) Nursing Services LABORATORY SERVICES Specimen Blood - Capillary blood (substance) Performing Organization Address City/[facility]/ZIP Code Phon e Number [facility] LABORATORY [address] [place] [address] SERVICES (ABNORMAL) VALPROIC ACID LEVEL (11/06/2021 13:04 EDT) Pathologist Sig nature Valproic Acid 138 (H) 50 - 100 ug/mL [facility] LABORATORY SERVICES Specimen Blood - Venous blood (substance) Performing Organization Address City/[facility]/ZIP Code Phon e Number [facility] LABORATORY [address] [place] [address] SERVICES POCT GLUCOSE, INTERFACED (11/06/2021 9:11 EDT) Glucose, POC 99 70 - [address] [facility] mg/dL LABORATORY SERVICES HN LAB POC COMMENT Test Performed by [facility] [employer] R (GLUCOSE) Nursing Services LABORATORY SERVICES Specimen Blood - Capillary blood (substance) Performing Organization Address City/[facility]/ZIP Code Phon e Number [facility] LABORATORY [address] [place] [address] SERVICES (ABNORMAL) DIFFERENTIAL (11/06/2021 7:12 EDT) Neutrophils 92.2 % [facility] LABORATORY SERVICES Lymphocytes 2.8 % [facility] LABORATORY SERVICES Monocytes 3.6 % [facility] LABORATORY SERVICES Eosinophils 0.0 % [facility] LABORATORY SERVICES Basophils 0.1 % [facility] LABORATORY SERVICES Immature Grans 1.3 % [facility] LABORATORY SERVICES Absolute Neutrophils 6.90 2.20 - 8.85 [facility] LABORATORY SERVICES Absolute Lymphocytes 0.21 (L) 1.09 - 3.30 [facility] LABORATORY SERVICES Absolute Monocytes 0.27 0.10 - 0.80 [facility] LABORATORY SERVICES Absolute Eosinophils 0.00 (L) 0.03 - 0.61 [facility] LABORATORY SERVICES Absolute Basophils 0.01 0.01 - 0.11 [facility] LABORATORY SERVICES Absolute Immature 0.10 (H) 0.00 - 0.[address] [facility] LABORATORY SERVICES Type of Differential: [facility] LABORATORY SERVICES Specimen Blood - Venous blood (substance) Performing Organization Address City/State/ZIP Code Phon e Number [facility] LABORATORY [address] [place] [address] SERVICES (ABNORMAL) BASIC METABOLIC PANEL (BMP) (11/06/2021 7:12 EDT) Sodium 132 (L) 136 - [address] [facility] mmol/L LABORATORY SERVICES Potassium 4.6Comment: Slight 3.5 - 5.[address] [facility] hemolysis mmol/L LABORATORY SERVICES identified, interpret with caution as hemolysis will elevate potassium result. Chloride 99 96 - 110 mmol/L [facility] LABORATORY SERVICES CO2 Total 26 22 - 32 mmol/L [facility] LABORATORY SERVICES Anion Gap 7 5 - [address] [facility] LABORATORY SERVICES Glucose 108 (H) 70 - 100 mg/dL [facility] LABORATORY SERVICES Calcium 8.4 (L) 8.5 - 10.[address] [facility] mg/dL LABORATORY SERVICES BUN 25 10 - 26 mg/dL [facility] Comment: LABORATORY SERVICES Slight hemolysis identified, interpret with caution as results may be affected due to hemolysis. Creatinine 0.52 0.52 - 1.[address] [facility] mg/dL LABORATORY SERVICES eGFR 101 >[address] [facility] mL/min/1.73m2 LABORATORY SERVICES Specimen Blood - Venous blood (substance) Performing Organization Address [facility]/ZIP Code Phon e Number [facility] LABORATORY [address] [place] [address] SERVICES (ABNORMAL) COMPLETE BLOOD COUNT (11/06/2021 7:12 EDT) Pathologist Sig nature WBC 7.48 4.00 - 12.40 K/cmm [facility] LABORATORY SERVICES RBC 4.21 3.86 - 5.04 M/cmm [facility] LABORATORY SERVICES Hemoglobin 14.2 11.6 - 15.2 gm/dL [facility] LABORATORY SERVICES HCT 38.7 34.9 - 44.4 % [facility] LABORATORY SERVICES MCV 92 81 - [address] [facility] LABORATORY SERVICES MCH 33.7 (H) 26.7 - 33.[address] [facility] LABORATORY SERVICES MCHC 36.7 (H) 32.1 - 35.9 gm/dL [facility] LABORATORY SERVICES RDW-CV 14.3 <14.7 % [facility] LABORATORY SERVICES RDW-SD 48.6 <50.[address] [facility] LABORATORY SERVICES PLT 91 (L) 141 - 377 [facility] SERVICES MPV 10.2 9.5 - 12.[address] [facility] LABORATORY SERVICES Specimen Blood - Venous blood (substance) Performing Organization Address [facility]/ZIP Code Phon e Number [facility] LABORATORY [address] [place] [address] SERVICES VALPROIC ACID LEVEL (11/06/2021 7:12 EDT) Pathologist Sig nature Valproic Acid 50 50 - 100 ug/mL [facility] LABORATORY SERVICES Specimen Blood - Venous blood (substance) Performing Organization Address City/[facility]/ZIP Code Phon e Number [facility] LABORATORY [address] [place] [address] SERVICES PROTEIN/CREATININE RATIO, URINE (11/05/2021 15:15 EDT) Total Protein, 11Comment: See Note mg/dL [facility] Urine Reference range CENTER LABORATORY not established. SERVICES Creatinine, Urine 66.5Comment: See Note mg/dL [facility] MEDICAL Reference range CENTER LABORATORY not established. SERVICES UPRO mg/mg Cr, Ur 0.17 <0.18 mg/mg [facility] LABORATORY SERVICES Specimen Urine - Urine (substance) Performing Organization Address [facility] Phon e Number [facility] LABORATORY [address] [place] [address] SERVICES (ABNORMAL) BASIC METABOLIC PANEL (BMP) (11/05/2021 7:56 EDT) Pathologist Sig nature Sodium 133 (L) 136 - 145 mmol/L [facility] LABORATORY SERVICES Potassium 4.5 3.5 - 5.0 mmol/L [facility] LABORATORY SERVICES Chloride 99 96 - 110 mmol/L [facility] LABORATORY SERVICES CO2 Total 23 22 - 32 mmol/L [facility] LABORATORY SERVICES Anion Gap 11 5 - [address] [facility] LABORATORY SERVICES Glucose 128 (H) 70 - 100 mg/dL [facility] LABORATORY SERVICES Calcium 8.9 8.5 - 10.5 mg/dL [facility] LABORATORY SERVICES BUN 23 10 - 26 mg/dL [facility] LABORATORY SERVICES Creatinine 0.56 0.52 - 1.04 mg/dL [facility] LABORATORY SERVICES eGFR 99 >60 mL/min/1.73m2 [facility] LABORATORY SERVICES Specimen Blood - Venous blood (substance) Performing Organization Address [facility] Phon e Number [facility] LABORATORY [address] [place] [address] SERVICES (ABNORMAL) COMPLETE BLOOD COUNT (11/05/2021 7:56 EDT) Pathologist Sig nature WBC 9.48 4.00 - 12.40 K/cmm [facility] LABORATORY SERVICES RBC 4.44 3.86 - 5.04 M/cmm [facility] LABORATORY SERVICES Hemoglobin 14.8 11.6 - 15.2 gm/dL [facility] LABORATORY SERVICES HCT 41.3 34.9 - 44.4 % [facility] LABORATORY SERVICES MCV 93 81 - [address] [facility] LABORATORY SERVICES MCH 33.3 26.7 - 33.[address] [facility] LABORATORY SERVICES MCHC 35.8 32.1 - 35.9 gm/dL [facility] LABORATORY SERVICES RDW-CV 14.4 <14.7 % [facility] LABORATORY SERVICES RDW-SD 49.2 <50.[address] [facility] LABORATORY SERVICES PLT 92 (L) 141 - 377 K/cmm [facility] LABORATORY SERVICES MPV 9.5 9.5 - 12.[address] [facility] LABORATORY SERVICES Specimen Blood - Venous blood (substance) Performing Organization Address City/State/ZIP Code Phon e Number [facility] LABORATORY [address] [place] [address] SERVICES EEG WITH PROLONGED BEDSIDE VIDEO MONITORING (11/04/2021 23:59 EDT) Narrative [facility] POINT OF CARE - 11/04/2021 23:59 E DT Aylin Leblanc MD ? 11/05/2021 11:08 [facility] ??Name: Lizette Cardona Clinical Neurophysiology Laboratory ??MR N: [id number] [address] [facility] ? : 1955 [place], [place] ?Date: 022 Video-Electroencephalographic Monitoring Report Referring [...] EEG electrodes are placed according to the [facility] l 10-20 system as well as anterior [...] Address City/State/ZIP Code Phon e Number [facility] POINT OF CARE MR HEAD W WO CONTRAST (11/04/2021 16:22 EDT) Anatomical Region Laterality Modality Head Magnetic Resonance Specimen Impressions [facility] RADIOLOGY [facility] - 11/04/2021 17:21 [...] an enlarging/new site of multifocal disease. Narrative [facility] 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 EKG 12-LEAD (11/04/2021 9:15 EDT) Specimen Narrative [facility] EKG - 11/04/2021 15:2 8 EDT ?[facility] Emergency ? Test Date: ?2021-11-04 Pat Name: ? LIZETTE CARDONA ? Department: ?? ED ? Room: ? AC02 Gender: ? Female ? Busher Helper: ?? [id number] : ?1955 ? Requested By: EMMANUELLE JOHNS Order Number: [id number] ? Reading MD: ?? DARIUS CHAN MD PhD ? Measurements Intervals ?[place] ? Rate: ? 54 ? P: ?59 AL: ? 133 ?QRS: ?28 QRSD: ? 95 ? T: ?22 QT: ? 418 ? QTc: ?397 ? Interpretive Statements SINUS BRADYCARDIA No previous ECG available for comparison I reviewed the tracing and have either a greed or edited the findings in this report. Electronically Signed On 11-05-19 15:28:52 EDT by DARIUS CHAN MD PhD. Procedure Note Darius Chan MD PhD - [facility] Emergency Test Date: 2021-11-04 Pat Name: LIZETTE CARDONA Department: ED Room: [facility] Gender: Female Busher Helper: [id number] : 1955 Requested By: [place] JOHNS Order Number: [id number] Tatyana MD: Shady CHAN MD PhD Measurements Intervals [place] Rate: 54 P: 59 AL: 133 QRS: 28 QRSD: 95 T: 22 QT: 418 QTc: 397 Interpretive Statements SINUS BRADYCARDIA No previous ECG available for comparison I reviewed the tracing and have either a greed or edited the findings in this report. Electronically Signed On 11-05-19 15:28:52 EDT by DARIUS CHAN MD PhD. Performing Organization Address City/State/ZIP Code Phon e Number [facility] EKG (ABNORMAL) BASIC METABOLIC PANEL (BMP) (11/04/2021 7:38 EDT) Sodium 133 (L) 136 - [address] [facility] mmol/L LABORATORY SERVICES Potassium 5.9 (H)Comment: 3.5 - 5.[address] [facility] Moderate hemolysis mmol/L LABORATORY SERVICES identified, interpret with caution as hemolysis will elevate potassium result. Chloride 100 96 - 110 mmol/L [facility] LABOR[facility]ORY SERVICES CO2 Total 27 22 - 32 mmol/L [facility] SERVICES Anion Gap 6 5 - [address] [facility] LABOR[facility]ORY SERVICES Glucose 90 70 - 100 mg/dL [facility] LABORATORY SERVICES Calcium 8.3 (L) 8.5 - 10.[address] [facility] mg/dL LABORATORY SERVICES BUN 21Comment: Moderate 10 - 26 mg/dL [facility] hemolysis LABORATORY SERVICES identified, interpret with caution as results may be affected due to hemolysis. Creatinine 0.49 (L) 0.52 - 1.[address] [facility] mg/dL LABORATORY SERVICES eGFR 103 >[address] [facility] mL/min/1.73m2 LABORATORY SERVICES Specimen Blood - Venous blood (substance) Performing Organization Address [facility]/ZIP Code Phon e Number [facility] [address] [place] [address] SERVICES (ABNORMAL) COMPLETE BLOOD COUNT (11/04/2021 7:38 EDT) Pathologist Sig nature WBC 7.08 4.00 - 12.40 K/cmm [facility] LABORATORY SERVICES RBC 3.94 3.86 - 5.04 M/cmm [facility] LAB[facility]ORY SERVICES Hemoglobin 13.2 11.6 - 15.2 gm/dL [facility] LABORATORY SERVICES HCT 37.5 34.9 - 44.4 % [facility] LABORATORY SERVICES MCV 95 81 - [address] [facility] LABORATORY SERVICES MCH 33.5 (H) 26.7 - 33.[address] [facility] LABORATORY SERVICES MCHC 35.2 32.1 - 35.9 gm/dL [facility] LABORATORY SERVICES RDW-CV 14.4 <14.7 % [facility] LABORATORY SERVICES RDW-SD 49.8 <50.[address] [facility] LABORATORY SERVICES PLT 72 (L) 141 - 377 [facility] MPV 10.7 9.5 - 12.[address] [facility] LABORATORY SERVICES Specimen Blood - Venous blood (substance) Performing Organization Address City/[facility]/ZIP Code Phon e Number [facility] LAB[facility]ATORY [address] [place] [address] SERVICES POCT URINE DIPSTICK, CLINITE[facility] (11/04/2021 5:13 EDT) Color, UA Yellow Yellow [facility] LABORATORY SERVICES Clarity, UA Clear Clear [facility] LAB[facility] SERVICES Glucose, UA Negative Negative [facility] LABORATORY SERVICES Bilirubin, UA Negative Negative [facility] LABORATORY SERVICES Ketones, UA Negative Negative [facility] LABORATORY SERVICES Specific Beauty, 1.025 1.001 - 1.035 [facility] LABORATORY SERVICES Blood, UA Negative Negative [facility] LABORATORY SERVICES pH, UA 8.0 4.6 - 8.[address] [facility] LABORATORY SERVICES Protein, UA Negative Negative [facility] LABORATORY SERVICES Urobilinogen, UA 1.0 0.2 - 1.0 mg/dL [facility] LABORATORY SERVICES Nitrite, UA Negative Negative [facility] LABORATORY SERVICES Leuk Esterase Negative Negative [facility] LABORATORY SERVICES HN LAB COMMENT Test performed at [facility] ([facility], UR) Emergency CENTER LABORATORY Department SERVICES Specimen Urine - Urine specimen collection, clean catch (procedure) Performing Organization Address [facility]/ZIP Code Phon e Number [facility] [address] [place] [address] SERVICES POCT CSN BARCODE URINE DIPSTICK (11/04/2021 5:11 EDT) Specimen Urine - Urine specimen collection, clean catch (procedure) Performing Organization Address [facility]/ZIP Code Phon e Number [facility] [address] [place] [address] SERVICES COVID-19 TEST [facility] LAB PCR (11/04/2021 5:05 EDT) Specimen Swab - Anterior nares Performing Organization Address [facility]/ZIP Code Phon e Number [facility] [address] [place] [address] SERVICES HOLD GREEN TOP (11/04/2021 5:05 EDT) Pathologist Sig nature Hold Hold [facility] LABORATOR Y SERVICES Specimen Blood - Venous blood (substance) Performing Organization Address [facility]/[place] [facility] [place] e Number [facility] [address] [place] [address] SERVICES COVID-19 TESTING (11/04/2021 5:05 EDT) COVID-19 rt-PCR Negative Negative [facility] Result LABORATORY SERVICES Performing Lab GeneXpert [facility] Lab LABORATORY SERVICES Specimen Swab - Anterior nares Performing Organization Address [facility]/ZIP Code Phon e Number [facility] [address] [place] [address] SERVICES MAGNESIUM (11/04/2021 5:03 EDT) Pathologist Sig nature Magnesium 2.0 1.7 - 2.8 mg/dL [facility] LABORA TORY SERVICES Specimen Blood - Venous blood (substance) Performing Organization Address [facility]/[place] [facility] [place] Ph[place] e Number [facility] [address] [place] [address] SERVICES (ABNORMAL) COMPREHENSIVE METABOLIC PANEL (CMP) (11/04/2021 5:03 EDT) Pathologist Sig nature Sodium 131 (L) 136 - [address] [facility] mmol/L LABORATORY SERVICES Potassium 3.9 3.5 - 5.[address] [facility] mmol/L LABORATORY SERVICES Chloride 99 96 - 110 mmol/L [facility] LABORATORY SERVICES CO2 Total 26 22 - 32 mmol/L [facility] LABORATORY SERVICES Glucose 118 (H) 70 - 100 mg/dL [facility] LABORATORY SERVICES BUN 22 10 - 26 mg/dL [facility] LABORATORY SERVICES Creatinine 0.54 0.52 - 1.[address] [facility] mg/dL LABORATORY SERVICES eGFR 100 >[address] [facility] mL/min/1.73m2 LABORATORY SERVICES Total Protein 5.6 (L) 6.3 - 8.2 g/dL [facility] LABORATORY SERVICES Albumin 3.4 3.4 - 4.9 g/dL [facility] LABORATORY SERVICES Alkaline Phosphatase 50 38 - 126 U/L [facility] LABORATORY SERVICES AST 24 15 - 46 U/L [facility] LABORATORY SERVICES ALT 37 (H) <35 U/L [facility] LABORATORY SERVICES Bilirubin, Total 0.9 <1.4 mg/dL [facility] LABORATORY SERVICES Calcium 8.3 (L) 8.5 - 10.[address] [facility] mg/dL LABORATORY SERVICES Albumin/Globulin 1.5 1.0 - 2.[address] [facility] Ratio LABORATORY SERVICES Anion Gap 6 5 - [address] [facility] LABORATORY SERVICES Specimen Blood - Venous blood (substance) Performing Organization Address City/[facility]/ZIP Code Phon e Number [facility] LABORATORY [address] [place] [address] SERVICES HN LAB CBC SMEAR REVIEW (11/04/2021 5:02 EDT) Differential Comment Slide was examined [facility] by a technologist to CENTER LABORATORY verify the WBC SERVICES and/or platelet count. Specimen Blood - Venous blood (substance) Performing Organization Address City/[facility]/ZIP Code Phon e Number [facility] [address] [place] [address] SERVICES (ABNORMAL) PROTIME (11/04/2021 5:02 EDT) Pathologist Sig nature I.N.R. 1.3 (H) 0.9 - 1.[address] [facility] LABORATORY SERVICES Pro Time 15.3 (H) 9.7 - 12.[address] [facility] LABORATORY SERVICES Specimen Blood - Venous blood (substance) Narrative [facility] LABORATORY SERVICES - 11/04/2021 5:25 EDT Moderate Intensity Coumadin INR = 2.0-3.0 Adjustments in anticoagulant therapy dos e should be based on the INR and NOT on the Protime. Performing Organization Address City/State/ZIP Code Phon e Number [facility] LAB[facility] [address] [place] [address] SERVICES (ABNORMAL) COMPLETE BLOOD COUNT AND DIFFERENTIAL (11/04/2021 5:02 EDT) WBC 7.15 4.00 - 12.40 [facility] LABORATORY SERVICES RBC 3.76 (L) 3.86 - 5.04 [facility] LABORATORY SERVICES Hemoglobin 12.5 11.6 - 15.[address] [facility] gm/dL LABORATORY SERVICES HCT 36.1 34.9 - 44.4 % [facility] LABORATORY SERVICES MCV 96 81 - [address] [facility] LABORATORY SERVICES MCH 33.2 26.7 - 33.[address] [facility] LABORATORY SERVICES MCHC 34.6 32.1 - 35.[address] [facility] gm/dL LABORATORY SERVICES RDW-CV 14.4 <14.7 % [facility] LABORATORY SERVICES RDW-SD 50.2 <50.[address] [facility] LABORATORY SERVICES PLT 82 (L) 141 - 377 K/[facility] LABORATORY SERVICES MPV 9.6 9.5 - 12.[address] [facility] LABORATORY SERVICES Neutrophils 90.7 % [facility] LABORATORY SERVICES Lymphocytes 3.8 % [facility] LABORATORY SERVICES Monocytes 4.8 % [facility] LABORATORY SERVICES Eosinophils 0.0 % [facility] LABORATORY SERVICES Basophils 0.1 % [facility] LABORATORY SERVICES Immature Grans 0.6 % [facility] LABORATORY SERVICES Absolute Neutrophils 6.49 2.20 - 8.85 [facility] LABORATORY SERVICES Absolute Lymphocytes 0.27 (L) 1.09 - 3.30 [facility] LABORATORY SERVICES Absolute Monocytes 0.34 0.10 - 0.80 [facility] LABORATORY SERVICES Absolute Eosinophils 0.00 (L) 0.03 - 0.61 [facility] LABORATORY SERVICES Absolute Basophils 0.01 0.01 - 0.11 [facility] LABORATORY SERVICES Absolute Immature 0.04 0.00 - 0.[address] [facility] [place] /[facility] LABORATORY SERVICES Type of Differential: Auto [facility] LABORATORY SERVICES Specimen Blood - Venous blood (substance) Performing Organization Address City/State/ZIP Code Phon e Number [facility] LAB[facility] [address] [place] [address] OUT[address]IDE IMAGES NEURO (11/03/2021 1:41 EDT) Specimen Narrative 11/04/2021 1:42 EDT This is a non-reportable exam. documented in this encounter Visit Diagnoses Diagnosis Seizure (HCC-CMS) (HCC) - Primary Other convulsions Glioblastoma (HCC) Malignant neoplasm of brain, unspecified site documented in this encounter Admitting Diagnoses Diagnosis Seizure (HCC-CMS) (HCC) Other convulsions documented in this encounter Administered Medications Inactive Administered Medications - up to 3 most recent administrations Medication Order MAR Action Action Date Dose Rate Site bevacizumab-awwb (MVASI) 680 mg in New Bag 11/06/2021 13:46 EDT 68 0 mg sodium chloride (NS) 0.9 % 100 mL infusion 680 mg (10 mg/kg ? 68 kg Treatment Plan Recorded weight), intravenous, Administer over 30 Minutes, NOW X1, 1 dose, On Tue11/06/21 at 1230, Routine cloBAZam (ONFI) suspension 2.5 mg Given 11/11/2021 8:34 EDT 2.5 mg 2.5 mg, oral, 2 TIMES DAILY, First dose on Tue11/10/21 at 1015, Until Discontinued, Routine Given 11/10/2021 21:04 EDT 2.5 mg Given 11/10/2021 11:15 EDT 2.5 mg cloBAZam (ONFI) suspension 2.5 mg Given 11/12/2021 20:45 EDT 2.5 mg 2.5 mg, oral, AT BEDTIME, First dose (after last modification) on Tue11/11/21 at 2100, Until Discontinued, Routine Given 11/11/2021 21:14 EDT 2.5 mg cloBAZam (ONFI) tablet 5 mg Given 11/09/2021 20:11 EDT 5 mg 5 mg, oral, 2 TIMES DAILY, First dose on Tue11/06/21 at 2100, Until Discontinued, Routine Given 11/09/2021 9:45 EDT 5 mg Given 11/08/2021 20:46 EDT 5 mg dexAMETHasone (DECADRON) tablet 4 mg Given 11/04/2021 8:08 EDT 4 mg 4 mg, oral, 2 TIMES DAILY, First dose on Tue11/04/21 at 0700, Until Discontinued, Routine dexAMETHasone (DECADRON) tablet 4 mg Given 11/04/2021 11:44 EDT 4 mg 4 mg, oral, NOW X1, 1 dose, On Tue11/04/21 at 1100, Routine dexAMETHasone (DECADRON) tablet 6 mg Given 11/13/2021 6:27 EDT 6 mg 6 mg, oral, 2 TIMES DAILY, First dose (after last modification) on Tue11/09/21 at 1800, Until Discontinued, Routine Given 11/12/2021 17:11 EDT 6 mg Given 11/12/2021 5:33 EDT 6 mg dexAMETHasone (DECADRON) tablet 8 mg Given 11/09/2021 6:20 EDT 8 mg 8 mg, oral, 2 TIMES DAILY, First dose (after last modification) on Tue11/04/21 at 1800, Until Discontinued, Routine Given 11/08/2021 18:18 EDT 8 mg Given 11/08/2021 6:09 EDT 8 mg diphenhydrAMINE (BENADRYL) injection 50 mg 50 mg, intravenous, PRN, 1 dose, Startin g on Tue11/06/21 at 1112, Until Tue11/13/21 at 1236, administer for rash, itching and/or hives ass ociated with a mild to moderate infusion reaction OR after epin ephrine IM for an anaphylactic reaction., Routine divalproex (DEPAKOTE SPRINKLE) capsule capsule, Given 11/13/2021 9:12 EDT 375 mg delayed rel sprinkle 375 mg 375 mg, oral, EVERY 12 HOURS, First dose on Tue11/10/21 at 0900, Until Discontinued, Routine Given 11/12/2021 20:45 EDT 375 mg Given 11/12/2021 8:33 EDT 375 mg enoxaparin (LOVENOX) injection 40 mg Given 11/13/2021 9:13 EDT 40 mg 40 mg, subcutaneous, DAILY, First dose on Tue11/05/21 at 0800, Until Discontinued, Routine Given 11/12/2021 8:33 EDT 40 mg Given 11/11/2021 8:33 EDT 40 mg EPINEPHrine (ADRENALIN) injection 0.3 mg 0.3 mg, intramuscular, PRN, 1 dose, Starting on Tue at 1112, Until Tue11/13/21 at 1236, for hypotension and/or airway obstruction symptoms related to an infusion or allergic reaction., Routine gadoterate meglumine solution 1-30 mL Given 11/04/2021 16:06 EDT 12 mL 1-30 mL, intravenous, Once in imaging, 1 dose, Starting on Tue11/04/21 at 1606, Until Tue11/04/21 at 1606, Routine, Imaging Protocol Orders lacosamide (VIMPAT) 200 mg in sodium chloride Given 11/07/19 21:24 EDT 200 mg (NS) 0.9 % 50 mL IVPB 200 mg, intravenous, Administer over 30 Minutes, EVERY 12 HOURS, First dose on Tue11/06/21 at 2045, Until Discontinued, Is this order a continuation or a new start? New Start, Has Neurology Service approved the use of lacosamide? Yes, Name of Neurology resident/attending: Jeison Wray, Tobin Hernandez, STAT levETIRAcetam (KEPPRA) 1,000 mg in sodium Given 11/05/2021 12:12 EDT 1,000 mg chloride (NS) 0.9 % 100 mL IVPB 1,000 mg, intravenous, Administer over 15 Minutes, NOW X1, 1 dose, On Tue11/05/21 at 1215, STAT levETIRAcetam (KEPPRA) 1,500 mg in sodium Given 11/12/2021 20:46 EDT 1,500 mg chloride (NS) 0.9 % 100 mL IVPB 1,500 mg, intravenous, Administer over 15 Minutes, EVERY 12 HOURS, First dose on Tue11/05/21 at 2100, Until Discontinued, Routine Given 11/12/2021 8:34 EDT 1,500 mg Given 11/11/2021 21:14 EDT 1,500 mg levETIRAcetam (KEPPRA) tablet 1,000 mg Given 11/05/2021 9:32 EDT 1,000 mg 1,000 mg, oral, 2 TIMES DAILY, First dose on Tue11/04/21 at 0900, Until Discontinued, Routine Given 11/04/2021 21:34 EDT 1,000 mg Given 11/04/2021 9:42 EDT 1,000 mg levETIRAcetam (KEPPRA) tablet 1,500 mg Given 11/13/2021 9:12 EDT 1,500 mg 1,500 mg, oral, 2 TIMES DAILY, First dose on Tue11/13/21 at 0900, Until Discontinued, Routine levothyroxine (SYNTHROID) tablet 100 mcg Given 11/13/2021 6:27 EDT 100 mcg 100 mcg, oral, DAILY BEFORE BREAKFAST, First dose on Tue11/04/21 at 0700, Until Discontinued, Routine Given 11/12/2021 5:33 EDT 100 mcg Given 11/11/2021 6:12 EDT 100 mcg lidocaine (PF) 10 mg/mL (1 %) injection 2 mL 2 mL, intradermal, PRN, 3 doses, Startin g on Tue11/06/21 at 1200, Until Tue11/13/21 at 1236, PIV placement and with each attempt as indica dipti; may repeat x3 prn, Routine LORazepam (ATIVAN) 2 mg/mL injection 1 dose, Starting on Tue11/06/21 at 1552, Until 10/10 at 1555 LORazepam (ATIVAN) injection 1 mg Given 11/07/2021 4:49 EDT 1 mg 1 mg, intravenous, NOW X1, 1 dose, On 11/07/21 at 0500, STAT LORazepam (ATIVAN) injection 2 mg Given 11/05/2021 11:51 EDT 2 mg 2 mg, intravenous, NOW X1, 1 dose, On Kiki 11/05/21 at 1215, STAT LORazepam (ATIVAN) injection 2 mg Given 11/06/2021 9:15 EDT 2 mg 2 mg, intravenous, NOW X1, 1 dose, On Tue11/06/21 at 0915, STAT LORazepam (ATIVAN) injection 2 mg Given 11/06/2021 15:55 EDT 2 mg 2 mg, intravenous, NOW X1, 1 dose, On Tue11/06/21 at 1615, STAT methylPREDNISolone sod suc(PF) (SOLU-MED ROL) injection 100 mg 100 mg, intravenous, PRN, 1 dose, Starting on 11/06 at 1112, Until Tue11/13/21 at 1236, Routine ondansetron (ZOFRAN-ODT) disintegrating tablet 8 Given 11/04/2021 10:50 EDT 8 mg mg 8 mg, oral, EVERY 8 HOURS PRN, Starting on Tue11/04/21 at 0501, Until Tue11/13/21 at 1236, Nausea, Take 30,imutes before temozolomide, Routine pantoprazole (PROTONIX) tablet 20 mg Given 11/13/2021 9:12 EDT 20 mg 20 mg, oral, 2 TIMES DAILY, First dose on Tue11/04/21 at 0900, Until Discontinued, Routine Given 11/12/2021 20:45 EDT 20 mg Given 11/12/2021 8:33 EDT 20 mg senna (SENOKOT) tablet 2 Tablet Given 11/12/2021 20:45 EDT 2 Tablets 2 Tablet, oral, AT BEDTIME, First dose on Tue11/04/21 at 2100, Until Discontinued, Routine Given 11/11/2021 21:14 EDT 2 Tablets Given 11/10/2021 20:33 EDT 2 Tablets sodium chloride 0.9 % (flush) flush 10 m L 10 mL, intravenous, PRN, Starting on Tue11/06/21 at 12 00, Until Tue11/13/21 at 1236, for PIV placement flush or central line access, Routine sodium chloride 0.9 % (flush) flush 10 m L 10 mL, intercatheter, PRN, Starting on 11/06/21 at 1200, Until Tue11/13/21 at 1236, PIV removal or central line de-access, Routine sodium chloride 0.9 % (flush) flush 20 m L 20 mL, intercatheter, PRN, Starting on 11/06/21 at 1200, Until Tue11/13/21 at 1236, PIV removal or central line de-access, Routine sulfamethoxazole-trimethoprim Given 11/04/2021 9:42 EDT 1 Tablet (BACTRIM/CO-TRIMOXAZOLE DS) 800-160 mg per tablet 1 Tablet 1 Tablet, oral, THREE TIMES WEEKLY (Once per day on Tue), 3 doses, First dose on Tue11/04/21 at 0900, Last dose on Tue11/09/21 at 0900, Type of Therapy: Prophylaxis, Suspected Indication (Select all that apply): Prosthetic joint infection (secondary ppx), ID Consult: No, Routine valproate (DEPACON) 1,360 mg in sodium Given 11/05/2021 20:08 ED T 1,360 mg chloride (NS) 0.9 % 100 mL IVPB 1,360 mg (20 mg/kg ? 68 kg), intravenous, Administer over 60 Minutes, NOW X1, 1 dose, On Kiki 11/05/21 at 1900, Routine valproate (DEPACON) 2,040 mg in sodium Given 11/06/2021 9:57 EDT 2,040 mg chloride (NS) 0.9 % 100 mL IVPB 2,040 mg (30 mg/kg ? 68 kg), intravenous, Administer over 60 Minutes, NOW X1, 1 dose, On Tue11/06/21 at 0900, Routine valproic acid (DEPAKENE) capsule 1,000 m g Given 11/09/2021 9:45 EDT 1,000 mg 1,000 mg, oral, 2 TIMES DAILY, First dose (after last modification) on Tue11/06/21 at 2100, Until Discontinued, Routine Given 11/08/2021 20:46 EDT 1,000 mg Given 11/08/2021 8:46 EDT 1,000 mg valproic acid (DEPAKENE) capsule 750 mg Given 11/09/2021 20:10 EDT 750 mg 750 mg, oral, 2 TIMES DAILY, First dose (after last modification) on 11/09/21 at 2100, Until Discontinued, Routine zinc oxide (DESITIN) 40 % paste topical, PRN, Starting on Tue11/11/21 at 1653, Until F ri 11/13/21 at 1236, Irritation documented in this encounter Discontinued Medications Medication Sig Discontinue Reason Start Date End Date dexAMETHasone (DECADRON) Take 1 Tablet by Reorder 10/27/2021 11/13/2021 4 mg tabletIndications: mouth 2 times Glioblastoma (HCC) daily. Take 4mg twice a day at 6am and 6 pm levETIRAcetam (KEPPRA) Take 500 mg by 08/2021 500 mg tablet mouth 2 times daily. temozolomide (TEMODAR) Take 1 capsule by 10/27/2021 11/13/2021 140 mg mouth daily Take capsuleIndications: zofran 30 minutes Glioblastoma (HCC) before temodar and take temodar 1 hour before radiation. documented as of this encounter Active and Recently Administered Medications Times are shown in EDT. Scheduled Medication Order 11/11/2021 11/12/2021 11/13/2021 cloBAZam (ONFI) suspension 2.5 mg (CANCELED) 0834 (Giv en - Provider: Berto Jeff RN) 2.5 mg, oral, 2 TIMES DAILY, First dose on Tue11/10/21 at 1015, Until Discontinued, Routine cloBAZam (ONFI) suspension 2.5 mg 2113 (Given - Provider: Deion Enciso RN) 2044 (Given - Provider: Marija Enciso RN) 2.5 mg, oral, AT BEDTIME, First dose (af ter last modification) on Tue11/11/21 at 2100, Until Discontinued, Routine dexAMETHasone (DECADRON) tablet 6 mg 0612 (Given - Pro vider: Marija Enciso RN)1847 (Given - Provider: Berto Jeff RN) 0533 (Given - Provider: Mairja Enciso RN)171 (Given - Provider: Susie Haney, LIZABETH) 0627 (Given - Provider: Marija Enciso RN) 6 mg, oral, 2 TIMES DAILY, First dose (a fter last modification) on Tue11/09/21 at 1800, Until Discontinued, Routine divalproex (DEPAKOTE SPRINKLE) capsule capsule, delaye d rel sprinkle 375 mg 0834 (Given - Provider: Berto Jeff RN)2113 (Given - Provider: Marija Enciso RN) 08 (Given - Provider: Susie Haney RN)2044 (Given - Provider: Marija Enciso RN) 09 (Given - Provider: Idania Barkley) 375 mg, oral, EVERY 12 HOURS, First dose on Tue11/10/21 at 0900, Until Discontinued, Routine enoxaparin (LOVENOX) injection 40 mg 0833 (Given - Pro vider: Berto Jeff RN) 0833 (Given - Provider: Susie Haney RN) 0913 (Gi sheldon - Provider: Maddy Howard RN) 40 mg, subcutaneous, DAILY, First dose o n Kiki 22 at 0800, Until Discontinued, Routine levETIRAcetam (KEPPRA) 1,500 mg in sodiu m chloride (NS) 0.9 % 100 mL IVPB (CANCELED) 833 (Given - Provider: Berto Jeff RN)2113 (Given - Provider: Marija Enciso RN) 833 (Given - Provider: Susie Haney , RN)2045 (Given - Provider: Marija Enciso RN) 1,500 mg, intravenous, Administer over 1 5 Minutes, EVERY 12 HOURS, First dose on Tue11/05/21 at 2100, Until Discontinued, Routine levETIRAcetam (KEPPRA) tablet 1,500 mg 911 (Given - Provider: Maddy Howard RN) 1,500 mg, oral, 2 TIMES DAILY, First dos e on Tue11/13/21 at 0900, Until Discontinued, Routine levothyroxine (SYNTHROID) tablet 100 mcg 611 (Given - Provider: Marija Enciso RN) 05 (Given - Provider: Marija Enciso RN) 06 (Given - Provider: Marija Enciso RN) 100 mcg, oral, DAILY BEFORE BREAKFAST, F irst dose on Tue11/04/21 at 0700, Until Discontinued, Routine pantoprazole (PROTONIX) tablet 20 mg 833 (Given - Pro vider: Berto Jeff RN)2113 (Given - Provider: Marija Enciso RN) 832 (Given - Provider: Susie Haney, LIZABETH)2044 (Given - Provider: Marija Enciso RN) 911 (Given - Provider: Maddy Howard RN) 20 mg, oral, 2 TIMES DAILY, First dose o n Tue11/04/21 at 0900, Until Discontinued, Routine senna (SENOKOT) tablet 2 Tablet 2113 (Given - Provider: Marija Enciso RN) 2044 (Given - Provider: Marija Enciso RN) 2 Tablet, oral, AT BEDTIME, First dose o n Tue11/04/21 at 2100, Until Discontinued, Routine PRN Medication Order 11/11/2021 11/12/2021 11/13/2021 acetaminophen (TYLENOL) tablet 500 mg 500 mg, oral, EVERY 4 HOURS PRN, Startin g on Tue11/04/21 at 0651, Until Tue11/13/21 at 1236, Pain, Routine diphenhydrAMINE (BENADRYL) injection 50 mg 50 mg, intravenous, PRN, 1 dose, Startin g on Tue11/06/21 at 1112, Until Tue11/13/21 at 1236, administer for rash, itching and/or hives associated with a mild to moderate infusion reaction OR after epinephrine IM for an anaphylactic reaction., Routine EPINEPHrine (ADRENALIN) injection 0.3 mg 0.3 mg, intramuscular, PRN, 1 dose, Star ting on Tue11/06/21 at 1112, Until Tue11/13/21 at 1236, for hypotension and/or airway obstruction symptoms related to an infusion or allergic reaction., Routine lidocaine (PF) 10 mg/mL (1 %) injection 2 mg 2 mg, intradermal, PRN, 4 doses, Startin g on Tue11/04/21 at 0510, Until Tue11/13/21 at 1236, peripheral intravenous catheter placement, Routine lidocaine (PF) 10 mg/mL (1 %) injection 2 mL 2 mL, intradermal, PRN, 3 doses, Startin g on Tue11/06/21 at 1200, Until Tue11/13/21 at 1236, PIV placement and with each attempt as indicated; may repeat x3 prn, Routine methylPREDNISolone sod suc(PF) (SOLU-MEDROL) injection 100 mg 100 mg, intravenous, PRN, 1 dose, Starti ng on Tue11/06/21 at 1112, Until Tue11/13/21 at 1236, Routine ondansetron (ZOFRAN-ODT) disintegrating tablet 8 mg 8 mg, oral, EVERY 8 HOURS PRN, Starting on Tue11/04/21 at 0501, Until Tue11/13/21 at 1236, Nausea, Take 30,imutes before temozolomide, Routine polyethylene glycol 3350 (MIRALAX) packet 17 g 17 g, oral, DAILY PRN, Starting on Tue at 0512, Until Tue11/13/21 at 1236, Constipation, Routine sodium chloride 0.9 % (flush) flush 10 mL 10 mL, intravenous, PRN, Starting on Tue11/06/21 at 1200, Until Tue11/13/21 at 1236, for PIV placement flush or central line access, Routine sodium chloride 0.9 % (flush) flush 10 mL 10 mL, intercatheter, PRN, Starting on F ri 11/06/21 at 1200, Until Tue11/13/21 at 1236, PIV removal or central line de-access, Routine sodium chloride 0.9 % (flush) flush 20 mL 20 mL, intercatheter, PRN, Starting on F ri 11/06/21 at 1200, Until Tue11/13/21 at 1236, PIV removal or central line de-access, Routine zinc oxide (DESITIN) 40 % paste topical, PRN, Starting on 11/11/21 at 1653, Until Tue11/13/21 at 1236, Irritation documented in this encounter Orders Medications Ordered That Might Not Have Count Last Ord ered Date First Ordered Date Been Administered zinc oxide (DESITIN) 40 % paste 1 11/11/2021 cloBAZam (ONFI) tablet 5 mg 3 11/10/2021 09/3 lacosamide (VIMPAT) tablet 100 mg 1 11/07/2021 alteplase (CATHFLO ACTIVASE) injection 2 1 022 mg diphenhydrAMINE (BENADRYL) injection 50 mg 1 11/06 EPINEPHrine (ADRENALIN) injection 0.3 mg 1 022 heparin (PF) flush 30 Units 1 11/06/2021 heparin (PF) lock flush 500 Units 1 11/06/2021 lidocaine (PF) 10 mg/mL (1 %) injection 2 1 2021 mL methylPREDNISolone sod suc(PF) 1 11/06/2021 (SOLU-MEDROL) injection 100 mg sodium chloride 0.9 % (flush) flush 10 mL 2 2021 sodium chloride 0.9 % (flush) flush 20 mL 1 2021 sodium chloride 0.9 % (NS) infusion 1 11/06/2021 valproic acid (DEPAKENE) capsule 500 mg 2 11/07/19 22 11/05/2021 bevacizumab-awwb (MVASI) 1,020 mg in 1 11/05/2021 sodium chloride (NS) 0.9 % 100 mL infusion levETIRAcetam (KEPPRA) 1,500 mg in sodium 1 2021 chloride (NS) 0.9 % 100 mL IVPB levETIRAcetam (KEPPRA) 500 mg in sodium 1 11/06/19 chloride (NS) 0.9 % 100 mL IVPB levETIRAcetam (KEPPRA) tablet 1,500 mg 1 acetaminophen (TYLENOL) tablet 500 mg 1 11/04/2021 lidocaine (PF) 10 mg/mL (1 %) injection 2 1 2021 mg NONFORMULARY MEDICATION 140 mg 2 11/04/2021 polyethylene glycol 3350 (MIRALAX) packet 1 2021 17 g Procedures Count Last Ordered Date First Ordered Date ECG REPORT - SCANNED 1 11/09/2021 Diet Count Last Ordered Date First Ordered Date DISCHARGE DIET 1 11/13/2021 Nursing Count Last Ordered Date First Ordered Date ACTIVITY INSTRUCTIONS 1 11/13/2021 BATHING INSTRUCTIONS 1 11/13/2021 INFORMED CONSENT 1 11/06/2021 VITAL SIGNS 1 11/04/2021 IV Count Last Ordered Date First Ordered Date IV REQUEST 1 11/06/2021 Admission Count Last Ordered Date First Ordered Date ADMIT TO INPATIENT 1 11/04/2021 Transfer Count Last Ordered Date First Ordered Date ED BED REQUEST 1 11/04/2021 Discharge Count Last Ordered Date First Ordered Date DISCHARGE PATIENT 1 11/13/2021 documented in this encounter Care Teams Microphone Boom Operator Relationship Specialty Start Date End Date Viki Elaine PA PCP - General 10/27/[address] [place] [address] [place] [phone] Ewa Bynum MD Neurology 11/04/[address] [place] [address], [address] 2 [place] [phone] Vinay Mercado MD 11/04/[address] [place] [address] [place] [address] documented as of this encounter
--- OUTSIDE RECORDS SUMMARY | 2021-12-04 14:01 | XMS_ITS | Encounter Summary ---
:1955 Author Organization [facility] Address [address] [place] [address] Care Team Providers Name Role Phone Viki Elaine Primary Care Provider [phone] Encounter Details Date Type Department Care Team Description 11/03/2021 Hospital Encounter [facility] [place] Secondary Reads [place] Social History Tobacco Use Types Packs/Day Years [...] making decisions? documented as of this encounter Medications at Time of Discharge Medication Sig Dispensed Refills Start Date End Date acetaminophen (TYLENOL) Take 500 mg by 0 500 mg tablet mouth as needed for Pain. calcium carbonate (CALCIUM Take 500 mg by 0 500 ORAL) mouth daily. calcium citrate 200 mg Take 200 mg by 0 (950 mg) mouth daily. diphenhydramine HCl Take by mouth as 0 (BENADRYL ALLERGY ORAL) needed. docusate sodium (COLACE) Take 100 mg by 0 100 mg capsule mouth daily. Levothyroxine 100 mcg Take 100 mcg by 0 capsule mouth daily. Multivitamins with Take 1 Tablet by 0 Minerals tablet tablet mouth daily. ondansetron (ZOFRAN-ODT) 8 Take 30 minutes 30 Tablet 1 10/09 mg disintegrating before Temodar and tabletIndications: then every 8 hours Glioblastoma (HCC) as needed for nausea pantoprazole (PROTONIX) 20 Take 20 mg by 0 mg tablet mouth 2 times daily. sodium chloride 1,000 mg Take 1 g by mouth 0 soluble tablet daily. sulfamethoxazole-trimethop Take 1 Tablet by 10 Tablet 0 rim mouth three times (BACTRIM/CO-TRIMOXAZOLE a week. DS) 800-160 mg per tabletIndications: Glioblastoma (HCC) dexAMETHasone (DECADRON) 4 Take 1 Tablet by 120 Tablet 0 11/13/2021 mg tabletIndications: mouth 2 times Glioblastoma (HCC) daily. Take 4mg twice a day at 6am and 6 pm levETIRAcetam (KEPPRA) 500 Take 500 mg by 0 11/13/2021 mg tablet mouth 2 times daily. temozolomide (TEMODAR) 140 Take 1 capsule by 21 capsule 0 11/13/2021 mg capsuleIndications: mouth daily Take Glioblastoma (HCC) zofran 30 minutes before temodar and take temodar 1 hour before radiation. documented as of this encounter Discharge Disposition Disposition Code Departure Means Destination Home or Self Care documented in this encounter Plan of Treatment Not on filedocumented as of this encounter Procedures Procedure Name Priority Date/Time Associated Diagnosis Comme nts CT OUTSIDE IMAGES STAT 11/03/2021 1:41 EDT Res ults for this NEURO procedure are i n the results section. documented in this encounter Results CT OUTSIDE IMAGES NEURO (11/03/2021 1:41 EDT) Specimen Narrative 11/04/2021 1:42 EDT This is a non-reportable exam. documented in this encounter Visit Diagnoses Not on filedocumented in this encounter Care Teams Shirt Presser Relationship Specialty Start Date End Date Viki Elaine PA PCP - General 10/27/[address] [place] [address] [place] [phone] documented as of this encounter
--- OUTSIDE RECORDS SUMMARY | 2021-12-04 14:01 | XMS_ITS | Encounter Summary ---
:1955 Author Organization [facility] Address [address] [place] [address] Care Team Providers Name Role Phone Viki Elaine Primary Care Provider [phone] Ewa Bynum MD Unavailable Vinay Mercado MD Unavailable Encounter Details Date Type Department Care Team Description 11/16/2021 Ambulatory Pharmacy [facility] [place] [facility] Ambulatory [facility] - Main [place] [address] [place] [address] Social History Tobacco Use Types [...] or older) documented as of this encounter Plan of Treatment Not on filedocumented as of this encounter Visit Diagnoses Not on filedocumented in this encounter Care Teams Direct Support Specialist Relationship Specialty Start Date End Date Viki Elaine PA PCP - General 10/27/[address] [place] [address] [place] [address] Ewa Bynum MD Neurology 11/04/[address] [place] [address] [address] [place] [phone] Vinay Mercado MD 11/04/[address] [place] [address] [place] [address] documented as of this encounter
--- OUTSIDE RECORDS SUMMARY | 2021-12-04 14:01 | XMS_ITS | Encounter Summary ---
:1955 Author Organization [facility] Address [address] [place] [address] Care Team Providers Name Role Phone Viki Elaine Primary Care Provider [phone] Reason for Visit Reason Onset Date Comments Returning Call 10/29/2021 Encounter Details Date Type Department Care Team Description 10/29/2021 Telephone [facility] Cancer Center Freddy Bynum MD Returning Call Hematology & Oncology - [address] [facility], [address], [address] [place], [place] [id number] [place] [address] [phone] (Wo rk) Social History Tobacco Use [...] Telephone Encounter - Yoli Tripp RN - 10/29/2021 8129 EDT Tang is calling as he received 21 days but her radiation course is 11/02-11/20, which is a total of 19 days so she will have two pills left over. I told him that she should start on 11/02 and stop on her last day of radiation. He confirmed understanding. elephone Encounter - Niecy Alicea - 10/29/2021 1652 EDT Patient returning call to nurse for medication questions before radiation documented in this encounter Plan of Treatment Not on filedocumented as of this encounter Visit Diagnoses Not on filedocumented in this encounter Care Teams Disaster Recovery Analyst Relationship Specialty Start Date End Date Viki Elaine PA PCP - General 10/27/[address] [place] [address] [place] [phone] documented as of this encounter
--- OUTSIDE RECORDS SUMMARY | 2021-12-04 14:02 | XMS_ITS | Encounter Summary ---
:1955 Author Organization [facility] Address [address] [place] [address] Care Team Providers Name Role Phone Parviz Lamb MD Primary Care Provider Unavailable Encounter Details Date Type Department Care Team Description 12/22/[address] [facility] - Carlos Pearce PA conversion [address] [place] [phone] [place] [phone] (Wo rk) Social History Tobacco Use Types Packs/Day Years Used Date Never Assessed Sex Assigned at Date Recorded Not on file documented as of this encounter Plan of Treatment Not on filedocumented as of this encounter Procedures Procedure Name Priority Date/Time Associated Diagnosis Comme nts CYTOPATHOLOGY Routine 12/22/1999 0:00 EST Results for this procedure are i n the results section . documented in this encounter Results CYTOPATHOLOGY (12/22/1999 0:00 EST) Pathology Report: CYTOPATHOLOGY REPORT [facility] Reports generated via electronic interface contain vaishnavi ginal data; however they are lacking the format of the original re port. Caution should be taken when reading/interpreting unfo rmatted reports. Name: ? LORIN CARDONA ? Accession #: ? [id number] : ? 1955 (Age: 44) ??F ?Collect Date: ? 12/08 Location: ? [facility] ? Receive Date : ? 12/24/1999 Provider: ?CARLOS WILEY Copy to: ? Specimen/Source: ?Conventional Pap Test, Cer vix Last Menstrual Period: ? 12/05/99 ? SPECIMEN ADEQUACY ? Satisfactory for evaluation but l imited by air drying artifact/cellular degeneration. GENERAL CATEGORIZATION ? Within Normal Limits ? Document reviewed and electronically signed by: ? MIGUELITO Miles(ASCP) ? Report Date: ??12/30/1999 13:49 End of Report Specimen Performing Organization Address City/State/ZIP Code Phon e Number [facility] [address] [place] [address] SERVICES [facility] [address] [place] [address] documented in this encounter Visit Diagnoses Not on filedocumented in this encounter Care Teams Delicatessen Manager Relationship Specialty Start Date End Date Parviz Lamb MD PCP - General 05/29/09 10/26/21 documented as of this encounter
--- OUTSIDE RECORDS SUMMARY | 2021-12-04 14:02 | XMS_ITS | Encounter Summary ---
:1955 Author Organization [facility] Address [address] [place] [address] Care Team Providers Name Role Phone Viki Elaine Primary Care Provider [phone] Encounter Details Date Type Department Care Team Description 10/27/2021 Phlebotomy Only [facility] ED Center 2 Toll Operator, [facility] Gliobl astoma Phlebotomy Phlebotomy ([facility]) (HCC) [address] [place], [place] [id number] Social History Tobacco Use Types Packs/Day Years [...] Name Priority Date/Time Associated Diagnosis Comme nts HEPATITIS B CORE Routine 10/27/2021 14:32 Glioblastoma Results for this ANTIBODY (TOTAL) EDT (HCC-CMS) (HCC) procedur e are in the results section. HEPATITIS B SURFACE Routine 10/27/2021 14:32 Glioblastoma Resu lts for this ANTIBODY EDT (HCC-CMS) (HCC) procedure ar e in the results section. HEPATITIS B SURFACE Routine 10/27/2021 14:32 Glioblastoma Resu lts for this ANTIGEN EDT (HCC-CMS) (HCC) procedure ar e in the results section. COMPLETE BLOOD COUNT Routine 10/27/2021 14:32 Glioblastoma Res ults for this AND DIFFERENTIAL EDT (HCC-CMS) (HCC) procedur e are in the results section. COMPREHENSIVE STAT 10/27/2021 14:32 Glioblastoma Results fo r this METABOLIC PANEL (CMP) EDT (HCC-CMS) (HCC) pro cedure are in the results section. documented in this encounter Results HEPATITIS B SURFACE ANTIGEN (10/27/2021 14:32 EDT) Pathologist Sig nature Hep B Surface Ag Negative Negative [facility] Specimen Blood - Venous blood (substance) Performing Organization Address [facility] Phon e Number [facility] [address] [place] [address] SERVICES HEPATITIS B SURFACE ANTIBODY (10/27/2021 14:32 EDT) Hep B Surface Ab, <3.1 See Note [facility] Quantitative Comment: mIU/mL [facility] Reference Range for Hep B Surface Ab, Quant: SERVICES Positive: >= 10.0 mIU/mL Negative: ??< 10.0 mIU/mL Patient is presumed to not be immune to infection with Hepatitis B Virus. Hep B Surface Ab, Negative See Note [facility] Qualitative Comment: [facility] Reference Range for Hep B Surface Ab, Qual: SERVICES Unvaccinated: ??Negative Vaccinated: ??Positive Specimen Blood - Venous blood (substance) Performing Organization Address City/[facility]/ZIP Code Phon e Number [facility] [address] [place] [address] SERVICES HEPATITIS B CORE ANTIBODY (TOTAL) (10/27/2021 14:32 EDT) Pathologist Sig nature Hepatitis B Core Ab, Negative Negative [facility] Total LABORATORY SERVICES Specimen Blood - Venous blood (substance) Performing Organization Address [facility]/ZIP [facility] Phon e Number [facility] [address] [place] [address] SERVICES (ABNORMAL) COMPREHENSIVE METABOLIC PANEL (CMP) (10/27/2021 14:32 EDT) Pathologist Sig nature Sodium 137 136 - 145 [facility] mmol/L LABORATORY SERVICES Potassium 4.8 3.5 - 5.0 [facility] mmol/L LABORATORY SERVICES Chloride 97 96 - 110 mmol/L [facility] CO2 Total 29 22 - 32 mmol/L [facility] Glucose 149 (H) 70 - 100 mg/dL [facility] BUN 24 10 - 26 mg/dL [facility] Creatinine 0.59 0.52 - 1.04 [facility] mg/dL LABORATORY SERVICES eGFR 98 >60 [facility] mL/min/1.73m2 LABORATORY SERVICES Total Protein 6.2 (L) 6.3 - 8.2 g/dL [facility] Albumin 4.0 3.4 - 4.9 g/dL [facility] Alkaline Phosphatase 47 38 - 126 U/L [facility] AST 21 15 - 46 U/L [facility] ALT 39 (H) <35 U/L [facility] SERVICES Bilirubin, Total 0.8 <1.4 mg/dL [facility] Calcium 8.8 8.5 - 10.5 [facility] mg/dL LABORATORY SERVICES Albumin/Globulin 1.8 1.0 - 2.5 [facility] Ratio LABORATORY SERVICES Anion Gap 11 5 - 14 [facility] Specimen Blood - Venous blood (substance) Performing Organization Address City/State/ZIP Code Phon e Number [facility] [address] [place] [address] SERVICES (ABNORMAL) COMPLETE BLOOD COUNT AND DIFFERENTIAL (10/27/2021 14:32 EDT) WBC 15.08 (H) 4.00 - 12.40 [facility] K/m LABORATORY SERVICES RBC 4.31 3.86 - 5.04 [facility] M/[facility] LABORATORY SERVICES Hemoglobin 14.1 11.6 - 15.2 [facility] gm/dL LABORATORY SERVICES HCT 42.2 34.9 - 44.4 % [facility]ORATORY SERVICES MCV 98 81 - 98 fl [facility]ORY SERVICES MCH 32.7 26.7 - 33.3 pg [facility] LABORATORY SERVICES MCHC 33.4 32.1 - 35.9 [facility] gm/dL LABORATORY SERVICES RDW-CV 14.2 <14.7 % [facility] LABORATORY SERVICES RDW-SD 51.2 (H) <50.4 fl [facility] LABORATORY SERVICES PLT 110 (L) 141 - 377 K/cmm [facility] SERVICES MPV 9.7 9.5 - 12.7 fl [facility] SERVICES Neutrophils 94.4 % [facility] SERVICES Lymphocytes 1.1 % [facility] SERVICES Monocytes 3.5 % [facility] SERVICES Eosinophils 0.0 % [facility] SERVICES Basophils 0.1 % [facility] SERVICES Immature Grans 0.9 % [facility] SERVICES Absolute Neutrophils 14.23 (H) 2.20 - 8.85 [facility] LABORATORY SERVICES Absolute Lymphocytes 0.17 (L) 1.09 - 3.30 [facility] LABORATORY SERVICES Absolute Monocytes 0.53 0.10 - 0.80 [facility] LABORATORY SERVICES Absolute Eosinophils 0.00 (L) 0.03 - 0.61 [facility] LABORATORY SERVICES Absolute Basophils 0.01 0.01 - 0.11 [facility] LABORATORY SERVICES Absolute Immature 0.14 (H) 0.00 - 0.06 [facility] LABORATORY SERVICES Type of Differential: Auto [facility] SERVICES Specimen Blood - Venous blood (substance) Performing Organization Address City/State/ZIP Code Phon e Number [facility] [address] [place] [address] SERVICES documented in this encounter Visit Diagnoses Diagnosis Glioblastoma (HCC) Malignant neoplasm of brain, unspecified site documented in this encounter Care Teams Resist Coater Developer Relationship Specialty Start Date End Date Viki Elaine PA PCP - General 10/27/[address] [place] [phone] documented as of this encounter
--- OUTSIDE RECORDS SUMMARY | 2021-12-04 14:02 | XMS_ITS | Encounter Summary ---
:[address] [facility] Address [address] [place] [address] Care Team Providers Name Role Phone Viki Elaine Primary Care Provider [phone] Reason for Referral Medication Prior Authorization (See Order Priority) - Authorization Not Required Specialty Diagnoses / Referred By Contact Referred To Contact Procedures Hematology and Diagnoses Glioblastoma (HCC) Ewa Bynum, Ep2 Hem/Onc Oncology MD [address] [place] [id number] [place] [address] Phone: [place], [address] [place] [address] Referral ID Status Reason Start Expiration Visits Visits Date Date Requested Authorized [id number] Authorization Medication Prior 10/28/19 1 1 Not Required Authorization 22 Question Answer Medication to be Prior Authorized: Zofran Comments Zofran 8 mg ODT PO q8hrs PRN for chemoth erapy induced nausea Encounter Details Date Type Department Care Team Description 10/27/2021 Orders Only [facility] Cancer Center Rickie Tripp ma ([facility]) Hematology & Oncology LIZABETH Kent ([facility]) (Primary Dx) [place] [address] Social History Tobacco Use Types Packs/Day Years [...] as of this encounter Plan of Treatment Scheduled Referrals Name Type Priority Associated Diagnoses Order S chedule AMB MEDICATION PRIOR Outpatient STAT Glioblastoma Expecte d: AUTHORIZATION REQUEST Referral ([facility]) ([facility]) (Approximate), Expires: 10/27/2022 documented as of this encounter Visit Diagnoses Diagnosis Glioblastoma (HCC) - Primary Malignant neoplasm of brain, unspecified site documented in this encounter Care Teams Manager Of Enterprise Relationship Specialty Start Date End Date Viki Elaine PA PCP - General 10/27/[address] [place] [address] [place] [phone] documented as of this encounter
--- OUTSIDE RECORDS SUMMARY | 2021-12-04 14:02 | XMS_ITS | Encounter Summary ---
:[address] [facility] Address [address] [place] [address] Care Team Providers Name Role Phone Viki Elaine Primary Care Provider [phone] Reason for Referral Consult (See Order Priority) - Authorized Specialty Diagnoses / Procedures Referred By Contact Refer red To Contact Pharmacy Diagnoses Glioblastoma (HCC) Ronni Hall MD Ambulatory Pharmacy [address] [facility] [address] [place] [address] [place], [address] [place] [address] Referral ID Status Reason Start Expiration Visits Visits Date Date Requested Authorized [id number] Authorized Specialty 10/27/2021 1 1 Services Required Question Answer PA Type: New Medication to be Prior Authorized: Temozolomide [facility] Precertification Request f or Medications Date: 10/27/2021 URGENT: Yes Medication Administration: PO, Home Ordering MD: Dr. Hall Nurse: Yoli Phone: [phone] Is this a dosage change, renewal or a ne w medication? New Med Medication Start Date & Number of Cycles : 11/02/2021 What is the reason for taking this medic ation? Glioblastoma Is this an on label usage of this medica tion? Yes Please Prior Auth Medications Listed bel ow: Temodar (temozolomide) 75 mg/m2, dose = 140 mg PO daily x 42 days Encounter Details Date Type Department Care Team Description 10/27/2021 Orders Only [facility] Rickie Tripp ma ([facility]) Hematology & Oncology LIZABETH Kent ([facility]) (Primary Dx) - [address] [address] Social History Tobacco Use Types Packs/Day Years Used Date Never Smoker Smokeless Tobacco: Never Used Sex Assigned at Date Recorded Not on file documented as of this encounter Last Filed Vital Signs Vital Sign Reading Time Taken Comments Blood Pressure - - Pulse - - Temperature - - Respiratory Rate - - Oxygen Saturation - - Inhaled Oxygen Concentration - - Weight 72.4 kg (159 lb 9.8 oz) 10/27/2021 1200 EDT Height 161.3 cm (5' 3.5) 10/27/2021 1200 EDT Body Mass Index 27.83 10/27/2021 1200 EDT documented in this encounter Functional Status [...] making decisions? documented as of this encounter Ordered Prescriptions Prescription Sig Dispensed Refills Start Date End Date temozolomide (TEMODAR) 140 Take 1 capsule by 21 capsule 0 11/13/2021 mg capsuleIndications: mouth daily Take Glioblastoma (HCC) zofran 30 minutes before temodar and take temodar 1 hour before radiation. ondansetron (ZOFRAN-ODT) 8 Take 30 minutes 30 Tablet 1 10/0910/27/2021 mg disintegrating before Temodar and tabletIndications: then every 8 hours Glioblastoma (HCC) as needed for nausea sulfamethoxazole-trimethop Take 1 Tablet by 42 Tablet 0 10/27/2021 rim mouth three times (BACTRIM/CO-TRIMOXAZOLE a week. DS) 800-160 mg per tabletIndications: Glioblastoma (HCC) temozolomide (TEMODAR) 140 Take 1 capsule by 42 capsule 0 10/27/2021 mg capsuleIndications: mouth daily Take Glioblastoma (HCC) zofran 30 minutes before temodar and take temodar 1 hour before radiation. documented in this encounter Miscellaneous Notes Addendum Note - Ronni Hall MD - 10/27/2021 1251 EDT Addended by: RONNI HALL on: 10/27/2021 13:42 Modules accepted: Orders Addendum Note - Yoli Tripp RN - 10/27/2021 1251 EDT Addended by: YOLI TRIPP on: 10/27/2021 13:25 Modules accepted: Orders documented in this encounter Plan of Treatment Scheduled Referrals Name Type Priority Associated Diagnoses Order S chedule AMB CONS/FOLLOW UP Outpatient STAT Glioblastoma Expected: SPECIALTY PHARMACY Referral ([facility]) (HCC) 2021 MEDICATION PRIOR (Approximat e), AUTHORIZATION REQUEST s: 10/27/2022 documented as of this encounter Visit Diagnoses Diagnosis Glioblastoma (HCC) - Primary Malignant neoplasm of brain, unspecified site documented in this encounter Discontinued Medications Medication Sig Discontinue Reason Start Date End Date temozolomide (TEMODAR) Take 1 capsule by Reorder 10/27/2021 10/27/2021 140 mg mouth daily Take capsuleIndications: zofran 30 minutes Glioblastoma (HCC) before temodar and take temodar 1 hour before radiation. documented as of this encounter Care Teams Director Of Recruitment And Admissions Relationship Specialty Start Date End Date Viki Elaine PA PCP - General 10/27/[address] [place] [address] [place] [address] documented as of this encounter
--- OUTSIDE RECORDS SUMMARY | 2021-12-04 14:02 | XMS_ITS | Encounter Summary ---
:1955 Author Organization [facility] Address [address] [place] [address] Care Team Providers Name Role Phone Parviz Lamb MD Primary Care Provider Unavailable Encounter Details Date Type Department Care Team Description 05/28/2009 Results Only [facility] Mihcoacano Holden am, MD Services - [place] [address] [address] Social History Tobacco Use Types Packs/Day Years Used Date Never Assessed Sex Assigned at Date Recorded Not on file documented as of this encounter Plan of Treatment Not on filedocumented as of this encounter Procedures Procedure Name Priority Date/Time Associated Comments Diagnosis HPV DETECTION, HIGH Routine 05/28/2009 14:16 Resu lts for this RISK TYPES EDT procedure are i n the results section. CYTOPATHOLOGY Routine 05/28/2009 0:00 Results for this EDT procedure are i n the results section. documented in this encounter Results HUMAN PAPILLOMA VIRUS DNA TEST (05/28/2009 14:16 EDT) Specimen Description Cervix, ThinPrep [facility] vial Result Negative for HPV [facility] types 16, 18, 31, 33, 35, 39, 45, 51, 52, 56, 58, 59, and 68. Report Status Final [facility] 06/09/2009 Specimen Performing Organization Address City/State/ZIP Code Phon e Number [facility] [address] [place] [address] SERVICES [facility] [address] [place] [address] CYTOPATHOLOGY (05/28/2009 0:00 EDT) Pathology Report: CYTOPATHOLOGY REPORT ? [facility] ? LAB Reports generated via [employer] interface contain original data; ? however they are lacking the format of the original report. ? Caution should be taken when reading/interpreting unformatted reports. ? Name: ? LORIN CARDONA ? Accession #: ? [id number] ? : ? 1955 (Age: 54) ??F ?Collect Date: ? 05/28/2009 ? Location: ? [facility] ? Receive Date: ? 05/30/2009 ? Provider: ?AVERY Mcguire HOLDEN MD ? Copy to: ? Specimen/Source: ? Pap Test, Cervix/Endocervix, ThinPrep Imaging System ? with manual evaluation ? Last Menstrual Period: ? 08/25/07 ? Other: ? HPVDX - HPV testing requeste d regardless of diagnosis on current ThinPrep Pap ?? test. ? SPECIMEN ADEQUACY ? Satisfactory for Eval uation ? - transformation zone compon ent present ? GENERAL CATEGORIZATION ? Negative for Intraepi thelial Lesion or Malignancy ? Document reviewed and electr onically signed by: ? Marija Verville,[place](ASCP) ? Report Date: ??04/30/ 2010 08:44 ? End of Report ? Specimen Performing Organization Address City/State/ZIP Code Phon e Number [facility] [address] [place] [address] SERVICES [facility] [address] [place] [address] documented in this encounter Visit Diagnoses Not on filedocumented in this encounter Care Teams Hop Strainer Relationship Specialty Start Date End Date Parviz Lamb MD PCP - General 05/29/09 10/26/21 documented as of this encounter
--- OUTSIDE RECORDS SUMMARY | 2021-12-04 14:02 | XMS_ITS | Encounter Summary ---
:1955 Author Organization [facility] Address [address] [place] [address] Care Team Providers Name Role Phone Viki Elaine Primary Care Provider [phone] Encounter Details Date Type Department Care Team Description 10/27/2021 Orders Only [facility] Rickie Tripp ma ([facility]) Hematology & Oncology LIZABETH Kent ([facility]) (Primary Dx) - [address] [address] Social History Tobacco Use Types Packs/Day [...] Sig Dispensed Refills Start Date End Date dexAMETHasone (DECADRON) 4 Take 1 Tablet by 120 Tablet 0 11/13/2021 mg tabletIndications: mouth 2 times Glioblastoma (HCC) daily. Take 4mg twice a day at 6am and 6 pm documented in this encounter Plan of Treatment Not on filedocumented as of this encounter Visit Diagnoses Diagnosis Glioblastoma (HCC) - Primary Malignant neoplasm of brain, unspecified site documented in this encounter Discontinued Medications Medication Sig Discontinue Reason Start Date End Date dexAMETHasone (DECADRON) 4 Take 1 Tablet by Reorder 10/27/2021 10/27/2021 mg tablet mouth 4 times daily for 30 days. Take 4mg twice a day at 6am and 6 pm documented as of this encounter Care Teams Property Utilization Officer Relationship Specialty Start Date End Date Viki Elaine PA PCP - General 10/27/[address] [place] [address] [place] [address] documented as of this encounter
--- OUTSIDE RECORDS SUMMARY | 2021-12-04 14:02 | XMS_ITS | Encounter Summary ---
:1955 Author Organization [facility] Address [address] [place] [address] Care Team Providers Name Role Phone Parviz Lamb MD Primary Care Provider Unavailable Reason for Visit (Routine/Next Available) - Receiving Office to Obtain Authorization Specialty Diagnoses / Procedures Referred By Contact Refer red To Contact Procedures Unknown, Provider, [place] OUTSIDE IMAGES Referral ID Status Reason Start Expiration Visits Visits Date Date Requested Authorized [id number] Receiving Office 10/27/2021 1 1 to Obtain Authorization Encounter Details Date Type Department Care Team Description 04/23/2021 Hospital Encounter [facility] Secondary Reads [place] Social History Tobacco Use Types Packs/Day Years Used Date Never Assessed Sex Assigned at Date Recorded Not on file documented as of this encounter Discharge Disposition Disposition Code Departure Means Destination Home or Self Care documented in this encounter Plan of Treatment Not on filedocumented as of this encounter Procedures Procedure Name Priority Date/Time Associated Diagnosis Comme nts NM OUTSIDE IMAGES Routine 04/23/2021 15:46 Result s for this EDT procedure are i n the results section. documented in this encounter Results NM OUTSIDE IMAGES (04/23/2021 15:46 EDT) Specimen Narrative 10/27/2021 15:46 EDT This is a non-reportable exam. documented in this encounter Visit Diagnoses Not on filedocumented in this encounter Care Teams Heating Worker Relationship Specialty Start Date End Date Parviz Lamb MD PCP - General 05/29/09 10/26/21 documented as of this encounter
--- OUTSIDE RECORDS SUMMARY | 2021-12-04 14:02 | XMS_ITS | Encounter Summary ---
:1955 Author Organization [facility] Address [address] [place] [address] Care Team Providers Name Role Phone Parviz Lamb MD Primary Care Provider Unavailable Reason for Visit (Routine/Next Available) - Receiving Office to Obtain Authorization Specialty Diagnoses / Procedures Referred By Contact Refer red To Contact Procedures Unknown, Provider, CT OUTSIDE IMAGES CHEST Phone: Referral ID Status Reason Start Expiration Visits Visits Date Date Requested Authorized [id number] Receiving Office 10/27/2021 1 1 to Obtain Authorization Encounter Details Date Type Department Care Team Description 12/04/2020 Hospital Encounter [facility] Secondary Read[place] Social History Tobacco [...] Associated Diagnosis Comme nts CT OUTSIDE IMAGES Routine 12/04/2020 15:45 Result s for this CHEST EDT procedure are i n the results section. documented in this encounter Results CT OUTSIDE IMAGES CHEST (12/04/2020 15:45 EDT) Specimen Narrative 10/27/2021 15:45 EDT This is a non-reportable exam. documented in this encounter Visit Diagnoses Not on filedocumented in this encounter Care Teams Farmer And Grazier Relationship Specialty Start Date End Date Parviz Lamb MD PCP - General 05/29/09 10/26/21 documented as of this encounter
--- OUTSIDE RECORDS SUMMARY | 2021-12-04 14:02 | XMS_ITS | Encounter Summary ---
:1955 Author Organization [facility] Address [address] [place] [address] Care Team Providers Name Role Phone Parviz Lamb MD Primary Care Provider Unavailable Reason for Visit (Routine/Next Available) - Receiving Office to Obtain Authorization Specialty Diagnoses / Procedures Referred By Contact Refer red To Contact Procedures Unknown, Provider, CT OUTSIDE IMAGES NEURO Phone: Referral ID Status Reason Start Expiration Visits Visits Date Date Requested Authorized [id number] Receiving Office 10/27/2021 1 1 to Obtain Authorization Encounter Details Date Type Department Care Team Description 12/04/2020 Hospital Encounter [facility] Secondary Reads [place] Social History Tobacco [...] Comme nts CT OUTSIDE IMAGES Routine 12/04/2020 15:43 Result s for this NEURO EDT procedure are i n the results section. documented in this encounter Results CT OUTSIDE IMAGES NEURO (12/04/2020 15:43 EDT) Specimen Narrative 10/27/2021 15:43 EDT This is a non-reportable exam. documented in this encounter Visit Diagnoses Not on filedocumented in this encounter Care Teams Cardiologist Relationship Specialty Start Date End Date Parviz Lamb MD PCP - General 05/29/09 10/26/21 documented as of this encounter
--- OUTSIDE RECORDS SUMMARY | 2021-12-04 14:02 | XMS_ITS | Encounter Summary ---
:1955 Author Organization [facility] Address [address] [place] [address] Care Team Providers Name Role Phone Parviz Lamb MD Primary Care Provider Unavailable Viki Elaine Primary Care Provider Ewa Bynum MD Unavailable Vinay Mercado MD Unavailable Encounter Details Date Type Department Care Team Description 09/22/2021 Lab Requisition [facility] Outr Resulting Lab, Pathology & Laboratory Provider [facility] [address] [place] [address] Social History Tobacco Use Types Packs/Day Years Used Date Never Assessed Sex Assigned at Date Recorded Not on file documented as of this encounter Plan of Treatment Not on filedocumented as of this encounter Procedures Procedure Name Priority Date/Time Associated Diagnosis Comme nts HOLD SST Today 09/22/2021 9:58 EDT Results for this procedure are i n the results section. SYPHILIS SEROLOGY Today 09/22/2021 9:58 EDT Res ults for this procedure are i n the results section. LYME AB Today 09/22/2021 9:58 EDT Results for this procedure are i n the results section. documented in this encounter Results HOLD SST (09/22/2021 9:58 EDT) Pathologist Sig nature Hold Hold [facility] Specimen Blood - Venous blood (substance) Performing Organization Address City/State/ZIP Code Phon e Number [facility] [address] [place] [address] SERVICES SYPHILIS SEROLOGY (09/22/2021 9:58 EDT) Pathologist Sig nature Syphilis Serology Negative Negative [facility] SERVICES Specimen Blood - Venous blood (substance) Performing Organization Address City/[facility]/ZIP Code Phon e Number [facility] [address] [place] [address] SERVICES LYME AB (09/22/2021 9:58 EDT) Pathologist Sig nature Lyme Ab Negative Negative [facility] Specimen Blood - Venous blood (substance) Performing Organization Address City/[facility]/ZIP Code Phon e Number [facility] [address] [place] [address] SERVICES documented in this encounter Visit Diagnoses Not on filedocumented in this encounter Care Teams Stock Grader Relationship Specialty Start Date End Date Parviz Lamb MD PCP - General 05/29/09 10/26/21 Viki Elaine PA PCP - General 10/27/[address] [place] [address] [place] [phone] Ewa Bynum MD Neurology 11/04/21 [address] [facility] [address] [place] [address] Vinay Mercado MD 11/04/[address] [place] [address] [address] [place], [place] [id number] documented as of this encounter
--- OUTSIDE RECORDS SUMMARY | 2021-12-04 14:02 | XMS_ITS | Encounter Summary ---
:1955 Author Organization [facility] Address [address] [place] [address] Care Team Providers Name Role Phone Parviz Lamb MD Primary Care Provider Unavailable Reason for Visit (Routine/Next Available) - Receiving Office to Obtain Authorization Specialty Diagnoses / Procedures Referred By Contact Refer red To Contact Procedures Unknown, Provider, MR OUTSIDE IMAGES NEURO Phone: Referral ID Status Reason Start Expiration Visits Visits Date Date Requested Authorized [id number] Receiving Office 10/27/2021 1 1 to Obtain Authorization Encounter Details Date Type Department Care Team Description 10/09/2021 Hospital Encounter [facility] Secondary Reads [place] Social History Tobacco Use Types Packs/Day Years Used Date Never Assessed Sex Assigned at Date Recorded Not on file documented as of this encounter Discharge Disposition Disposition Code Departure Means Destination Home or Self Care documented in this encounter Plan of Treatment Not on filedocumented as of this encounter Procedures Procedure Name Priority Date/Time Associated Diagnosis Comme nts MR OUTSIDE IMAGES Routine 10/09/2021 15:47 Result s for this NEURO EDT procedure are i n the results section. documented in this encounter Results MR OUTSIDE IMAGES NEURO (10/09/2021 15:47 EDT) Specimen Narrative 10/27/2021 15:48 EDT This is a non-reportable exam. documented in this encounter Visit Diagnoses Not on filedocumented in this encounter Care Teams Animal Husbandry Technician Relationship Specialty Start Date End Date Parviz Lamb MD PCP - General 05/29/09 10/26/21 documented as of this encounter
--- OUTSIDE RECORDS SUMMARY | 2021-12-04 14:02 | XMS_ITS | Encounter Summary ---
:1955 Author Organization [facility] Address [address] [place] [address] Care Team Providers Name Role Phone Parviz Lamb MD Primary Care Provider Unavailable Encounter Details Date Type Department Care Team Description 04/21/2005 Results Only [facility] - Dez Watson MD conversion [address] [place] [address] Social History Tobacco Use Types Packs/Day Years Used Date Never Assessed Sex Assigned at Date Recorded Not on file documented as of this encounter Plan of Treatment Not on filedocumented as of this encounter Procedures Procedure Name Priority Date/Time Associated Diagnosis Comme [facility] CYTOPATHOLOGY Routine 04/21/2005 0:00 EST Results for this procedure are i n the results section . documented in this encounter Results CYTOPATHOLOGY (04/21/2005 0:00 EST) Pathology Report: CYTOPATHOLOGY REPORT [facility] Reports generated via electronic interface contain vaishnavi ginal data; however they are lacking the format of the original re port. Caution should be taken when reading/interpreting unfo rmatted reports. Name: ? LORIN CARDONA ? Accession #: ? [id number] : ? 1955 (Age: 50) ??F ?Collect Date: ? 04/07 Location: ? [facility] ? Receive Date : ? 04/23/2005 Provider: ?DEZ HOLDEN MD Copy to: ? Specimen/Source: ? ThinPrep Pap Test, Cervix/Endocervix, processed on OLSET ThinPrep Imaging System, with manual evaluation Last Menstrual Period: ? 04/10/05 Other: ? HPVA - HPV testing requested if ASC-US on the current ThinPrep Pap test. ? SPECIMEN ADEQUACY ? Unsatisfactory for Evaluation, - insufficient numbers of squamous epith elial cells (less than 10% of expected cellularity) - sample preparation compromised by excessive blood GENERAL CATEGORIZATION ? Specimen processed and examined, but unsatisfac tory for evaluation of epithelial abnormality. Recommend repeat Pap test or further follow up, as cli nically indicated. ? Document reviewed and electronically signed by: ? MIGUELITO Rock(ASCP)(IAC) ? Report Date: ??04/28/2005 14:37 End of Report Specimen Performing Organization Address City/State/ZIP Code Phon e Number [facility] [address] [place] [address] SERVICES [facility] [address] [place] [address] documented in this encounter Visit Diagnoses Not on filedocumented in this encounter Care Teams Music Supervisor Relationship Specialty Start Date End Date Parviz Lamb MD PCP - General 05/29/09 10/26/21 documented as of this encounter
--- OUTSIDE RECORDS SUMMARY | 2021-12-04 14:02 | XMS_ITS | Encounter Summary ---
:1955 Author Organization [facility] Address [address] [place] [address] Care Team Providers Name Role Phone Parviz Lamb MD Primary Care Provider Unavailable Encounter Details Date Type Department Care Team Description 07/04/2014 Results Only [facility] Dez Holden MD [phone] Social History Tobacco Use Types Packs/Day Years Used Date Never Assessed Sex Assigned at Date Recorded Not on file documented as of this encounter Plan of Treatment Not on filedocumented as of this encounter Procedures Procedure Name Priority Date/Time Associated Diagnosis Comme nts PAP TEST- RESULT Routine 07/04/2014 0:00 EDT Resu lts for this ONLY procedure are i n the results section. documented in this encounter Results PAP TEST- RESULT ONLY (07/04/2014 0:00 EDT) Pathology Report: CYTOPATHOLOGY REPORT [facility] Reports generated via electronic interface contain vaishnavi ginal data; SERVICES however they are lacking the format of the original re port. Caution should be taken when reading/interpreting unfo rmatted reports. Name: ? LORIN CARDONA ? Accession #: ? [id number] ? : ? 1955 (Age: 59) ??F ?Collect Date: ? 07/04/2014 ? Location: ? [facility] ? Receive Date: ? 07/06/19 15 ? Provider: DEZ HOLDEN MD Copy to: ? Final Report SPECIMEN ADEQUACY ? Satisfactory for Evaluation - transformation zone component present - scant squamous epithelial component secondary to exc essive inflammation GENERAL CATEGORIZATION ? Negative for Intraepithelial Lesion or Malignan cy ?? Last Menstrual Period: 2006 Other: Additional clinical information: Previous Paps WNL: 04/13, 05/17 Specimen/Source: ??Pap Test, Cervix/Endocervix, ThinPr ep Imaging System with manual evaluation Document reviewed and electronically signed by: ? MIGUELITO Steven(ASCP) ? Report ??Date: 07/12/2014 09:31 HPV with Pap Test ? Date Ordered: ? 07/12/2014 ? Status: ?? S igned Out ?Date Complete: ? 07/16/2014 ? By: ??Sys tem Interface ? Date Reported: ? 07/16/2014 ? Interpretation RESULT: Negative for HPV. No E6 or E7 mRNA is detected from HPV types 16,18,31,3 3,35, 39,45,51,52,56,58,59,66, and 68 by tax compliance agent media dipti amplification. Comments Document reviewed and electronically signed by: ? System Interface ? Report date: 07/16/2014 By the signature above, the attending physician certif ies that he/she has personally conducted a gross and/or microscopic examin ation of the described specimens and rendered or confirmed the above diagnosi s. End of Report Specimen Performing Organization Address City/State/ZIP Code Phon e Number [facility] [address] [place] [id number] SERVICES documented in this encounter Visit Diagnoses Not on filedocumented in this encounter Care Teams Ux Design Lead Relationship Specialty Start Date End Date Parviz Lamb MD PCP - General 05/29/09 10/26/21 documented as of this encounter
--- OUTSIDE RECORDS SUMMARY | 2021-12-04 14:02 | XMS_ITS | Encounter Summary ---
:1955 Author Organization [facility] Address [address] [place] [address] Care Team Providers Name Role Phone Parviz Lamb MD Primary Care Provider Unavailable Viki Elaine Primary Care Provider [phone] Ewa Bynum MD Unavailable Vinay Mercado MD Unavailable Encounter Details Date Type Department Care Team Description 09/03/2019 Lab Requisition [facility] Sofie Elaine for other Pathology & INEZ Moreno general examination Laboratory Medicine [address] [place] [address] [address] [place] [id number] Social History Tobacco Use Types Packs/Day Years Used Date Never Assessed Sex Assigned at Date Recorded Not on file documented as of this encounter Plan of Treatment Not on filedocumented as of this encounter Procedures Procedure Name Priority Date/Time Associated Comments Diagnosis PAP TEST Today 09/03/2019 14:31 Results for this EDT procedure are i n the results section. HUMAN PAPILLOMAVIRUS Today 09/03/2019 14:31 Res ults for this (HPV) DETECTION-HIGH EDT procedu re are in RISK TYPES the results section. documented in this encounter Results HUMAN PAPILLOMAVIRUS (HPV) DETECTION-HIGH RISK TYPES (09/03/2019 14:31 EDT) Human Papillomavirus NegativeComment: No Negative [facility] MEDICAL (HPV) Detection-High E6 or E7 mRNA is CENTER LABORATOR Y Types detected from HPV SERVICES types 16,18,31,33,35,39,45 ,51,52,56,58,59,66, and 68 by meat press operator mediated amplification. Specimen Pap Test - Cervix and/or Endocervix Performing Organization Address City/[facility]/ZIP Code Phon e Number [facility] [address] [place] [address] SERVICES PAP TEST (09/03/2019 14:31 EDT) Specimens A. Cervix and/or [facility] MEDICAL Endocervix , ThinPrep CENTER Imaging System with LABORATORY Manual Evaluation SERVICES Specimen Adequacy Satisfactory for Evaluation - assessment of transformation zone component not applicable ( e.g. atrophy, vaginal sample, hysterectomy) [facility] Scant squamous epithelial component CENTE R LABORATORY SERVICES General Negative for [facility] Categorization intraepithelial CENTER lesion or malignancy LABORATORY SERVICES Attestation . [facility] Electronically CENTER signed by BERTRAM Vidales SERVICES CT(ASCP)(IAC) o n 09/14/2019 at 152 6 Clinical History NONE [facility] SERVICES HPV The result for the Human Pap illomavirus (HPV) Detection-High Risk Types is Negative. No E6 or E7 mRNA is detected from HPV types 16,18,31,33,35,39,45,51,52,56,58,59,66, and 68 by meat press operator mediated [facility] MEDICAL amplification.Testing was pe rformed on specimen [id number] and was resulted on 09/14/2019 1524 EDT by EARL, LAB INSTRUMENT RESULTS IN [facility] TER LABORATORY SERVICES Scanned Images [facility] SERVICES Specimen Pap Test - Cervix and/or Endocervix Performing Organization Address City/[facility]/ZIP Code Phon e Number [facility] [address] [place] [address] SERVICES documented in this encounter Visit Diagnoses Diagnosis Encounter for other general examination documented in this encounter Care Teams Cold Work Operator Relationship Specialty Start Date End Date Parviz Lamb MD PCP - General 05/29/09 10/26/21 Viki Elaine PA PCP - General 10/27/[address] [place] [address] [place] [address] Ewa Bynum MD Neurology 11/04/21 [address] [facility], Level 2 [place] [id number] Vinay Mercado MD 11/04/[address] [place] [address] [address] [place], [place] [id number] documented as of this encounter
--- OUTSIDE RECORDS SUMMARY | 2021-12-04 14:02 | XMS_ITS | Encounter Summary ---
:1955 Author Organization [facility] Address [address] [place] [address] Care Team Providers Name Role Phone Parviz Lamb MD Primary Care Provider Unavailable Viki Elaine Primary Care Provider [phone] Ewa Bynum MD Unavailable Vinay Mercado MD Unavailable Encounter Details Date Type Department Care Team Description 11/06/2020 Lab Requisition [facility] Oscar Rodriguez Enc ounter for other Pathology & MD general examination Laboratory Medicine - [address] [place] [address] 111 [facility] [address] [place], [place] [id number] Social History Tobacco Use Types Packs/Day Years Used Date Never Assessed Sex Assigned at Date Recorded Not on file documented as of this encounter Plan of Treatment Not on filedocumented as of this encounter Procedures Procedure Name Priority Date/Time Associated Diagnosis Comme nts NON SUPERVISING NURSE/FNA Today 11/05/2020 14:30 Results for this CYTOLOGY EDT procedure are i n the results section. documented in this encounter Results NON SUPERVISING NURSE/FNA CYTOLOGY (11/05/2020 14:30 EDT) Note to Patient The following [facility] pathology results [facility]ENTER LABORATORY have been SERVICES interpreted by your pathologist and may be available to you before your health provider has had the opportunity to review them. Please allow time for your provider to receive these results and explore management options, if applicable. Final Diagnosis THYROID, RIGHT LOBE, 1.2 CM, ULTRASOUND-GUIDED FINE NEEDLE ASPIRATION: [facility] - Suspicious for papillary thyroid carcinoma. See comm ent. [facility] Diagnosis Comment The aspirate is [facility] adequately cellular, [facility] but most of the SERVICES material is on the Diff Quik slides, a stain upon which is difficult to assess nuclear morphology, although there do appear to be intranuclear inclusions present. There is nuclear crowding and overlap and the Pap stained slides demonstrate nuclear pallor. There are numerous macrophages present in the background. Attestation By the signature below, the attending physician certifies that they have personally conducted a gross and/or microscopic [facility] Electronically examination of the described specimens and rendered or confirmed the above diagnosis. [facility] signed by BRENDA Be MD on 11/10/2020 at 10 45 Rapid Diagnosis THYROID, RIGHT, 1.2 CM NODUL E, ULTRASOUND GUIDED FINE NEEDLE ASPIRATION: [facility] Evaluation episode #1: Pass 1: Predominantly cystic contents (macrophages); rare follicular cells. Recommend additional pass(es). [facility] Evaluation episode #2: Pass 2: Mostly blood. Rec ommend additional pass(es). SERVICES Evaluation episode #3: Pass 3: Relatively cellular; follicular cells appear monotonous with rare intranuclear inclusions. Adequate specimen. Dr. Toby Mauricio 11/05/2020 Rapid evaluation of this Fin e Needle Aspiration sample was performed by Pathologists at [facility], [address] [place] [address]. Clinical History 1.2 cm TR5 right [facility] thyroid nodule; [facility] strong family SERVICES history of thyroid cancer-per Dr. Roger Rodriguez Gross Description A. [facility] 3 fixed prepared slides, 4 D iff Quik prepared slides, and 1 tube of CytoLyt were received and processed by selective cellular enhancement technique. [facility] Performing Lab [facility] SERVICES Scanned Images [facility] SERVICES Specimen ZZUNK - Entire right lobe of thyroid gla nd (body structure) Performing Organization Address City/State/ZIP Code Phon e Number [facility] [address] [place] [address] SERVICES documented in this encounter Visit Diagnoses Diagnosis Encounter for other general examination documented in this encounter Care Teams Pc Maintenance Technician Relationship Specialty Start Date End Date Parviz Lamb MD PCP - General 05/29/09 10/26/21 Viki Elaine PA PCP - General 10/27/[address] [place] [address] [place] [address] Ewa Bynum MD Neurology 11/04/[address] [place] [address], [facility] [address] [place] [address] Vinay Mercado MD 11/04/[address] [place] [address] [address] [place], [place] [id number] documented as of this encounter
--- OUTSIDE RECORDS SUMMARY | 2021-12-04 14:02 | XMS_ITS | Encounter Summary ---
:1955 Author Organization [facility] Address [address] [place] [address] Care Team Providers Name Role Phone Parviz Lamb MD Primary Care Provider Unavailable Reason for Visit Reason Onset Date Comments Follow-up 10/23/2021 Encounter Details Date Type Department Care Team Description 10/23/2021 Telephone [facility] Hematology & Yoli Tripp, RN Follow-up Oncology - [facility] [address] [place] [address] Social History Tobacco Use Types Packs/Day Years Used Date Never Assessed Sex Assigned at Date Recorded Not on file documented as of this encounter Miscellaneous Notes Telephone Encounter - Yoli Tripp RN - 10/23/2021 1423 EDT I called Lorin and Tang to clarify a question they had about Lorin's upcoming appointment. I gave him an overview of what to expect and that if Lorin wants she can continue care with us. Dr. Bynum will see her so Lorin can get started with temodar and radiation. documented in this encounter Plan of Treatment Not on filedocumented as of this encounter Visit Diagnoses Not on filedocumented in this encounter Care Teams Submarine Operator Relationship Specialty Start Date End Date Parviz Lamb MD PCP - General 05/29/09 10/26/21 documented as of this encounter
--- OUTSIDE RECORDS SUMMARY | 2021-12-04 14:02 | XMS_ITS | Encounter Summary ---
:1955 Author Organization [facility] Address [address] [place] [address] Care Team Providers Name Role Phone Viki Elaine Primary Care Provider [phone] Reason for Referral Medication Prior Authorization - Closed Specialty Diagnoses / Procedures Referred By Contact Refer red To Contact Diagnoses Glioblastoma (HCC) Ewa Bynum MD [address] [place] [address] 2 [place] [address] Referral ID Status Reason Start Date Expiration Date Visits Requ ested Visits Authorized [id number] Closed 1 1 Encounter Details Date Type Department Care Team Description 10/27/2021 Orders Only [facility] Rickie Tripp ma ([facility]) Hematology & Oncology LIZABETH Kent ([facility]) (Primary Dx) - [address] [address] Social History Tobacco Use Types [...] Sig Dispensed Refills Start Date End Date sulfamethoxazole-trimethopr Take 1 Tablet by 10 Tablet 0 im (BACTRIM/CO-TRIMOXAZOLE mouth three times a DS) 800-160 mg per week. tabletIndications: Glioblastoma (HCC) ondansetron (ZOFRAN-ODT) 8 Take 30 minutes 30 Tablet 1 10/09 mg disintegrating before Temodar and tabletIndications: then every 8 hours Glioblastoma (HCC) as needed for nausea documented in this encounter Plan of Treatment Not on filedocumented as of this encounter Visit Diagnoses Diagnosis Glioblastoma (HCC) - Primary Malignant neoplasm of brain, unspecified site documented in this encounter Discontinued Medications Medication Sig Discontinue Reason Start Date End Date sulfamethoxazole-trimethop Take 1 Tablet by Reorder 10/28/2021 10/27/2021 rim mouth three times (BACTRIM/CO-TRIMOXAZOLE a week. DS) 800-160 mg per tabletIndications: Glioblastoma (HCC) ondansetron (ZOFRAN-ODT) 8 Take 30 minutes Reorder 10/27/2021 10/27/2021 mg disintegrating before Temodar and tabletIndications: then every 8 hours Glioblastoma (HCC) as needed for nausea documented as of this encounter Care Teams Commercial Sales Consultant Relationship Specialty Start Date End Date Viki Elaine PA PCP - General 10/27/[address] [place] [address] [place] [address] documented as of this encounter
--- OUTSIDE RECORDS SUMMARY | 2021-12-04 14:02 | XMS_ITS | Encounter Summary ---
:1955 Author Organization [facility] Address [address] [place] [address] Care Team Providers Name Role Phone Parviz Lamb MD Primary Care Provider Unavailable Encounter Details Date Type Department Care Team Description 04/26/2006 Results Only [facility] - Dez Watson MD conversion [address] [place] [address] Social History Tobacco Use Types Packs/Day Years Used Date Never Assessed Sex Assigned at Date Recorded Not on file documented as of this encounter Plan of Treatment Not on filedocumented as of this encounter Procedures Procedure Name Priority Date/Time Associated Comments Diagnosis HPV DETECTION, HIGH Routine 04/26/2006 10:11 Resu lts for this RISK TYPES EDT procedure are i n the results section. CYTOPATHOLOGY Routine 04/26/2006 0:00 Results for this EDT procedure are i n the results section. documented in this encounter Results HUMAN PAPILLOMA VIRUS DNA TEST (04/26/2006 10:11 EDT) Specimen Description Cervix, ThinPrep [facility] vial Result Negative for HPV [facility] types 16, 18, 31, 33, 35, 39, 45, 51, 52, 56, 58, 59, and 68. Report Status Final [facility] [id number] Specimen Performing Organization Address City/State/ZIP Code Phon e Number [facility] [address] [place] [address] SERVICES [facility] [address] [place] [address] CYTOPATHOLOGY (04/26/2006 0:00 EDT) Pathology Report: CYTOPATHOLOGY REPORT [facility] Reports generated via electronic interface contain vaishnavi ginal data; however they are lacking the format of the original re port. Caution should be taken when reading/interpreting unfo rmatted reports. Name: ? LORIN CARDONA ? Accession #: ? [id number] : ? 1955 (Age: 51) ??F ?Collect Date: ? 04/08 Location: ? [facility] ? Receive Date : ? 04/28/2006 Provider: ?DEZ HOLDEN MD Copy to: ? Specimen/Source: ? ThinPrep Pap Test, Cervix/Endocervix, processed on [employer] ThinPrep Imaging System, with manual evaluation Last Menstrual Period: ? Other: ? Additional clinical information: Previous paps WNL HPVDX - HPV testing requested regardless of diag nosis on current ThinPrep Pap test. ? SPECIMEN ADEQUACY ? Satisfactory for Evaluation - transformation zone component present - scant squamous epithelial component secondary to exc essive blood GENERAL CATEGORIZATION ? Negative for Intraepithelial Lesion or Malignan cy ? Document reviewed and electronically signed by: ? MIGUELITO Vazquez(ASCP) ? Report Date: ??04/29/2006 14:21 End of Report Specimen Performing Organization Address City/State/ZIP Code Phon e Number [facility] [address] [place] [address] SERVICES [facility] [address] [place] [address] documented in this encounter Visit Diagnoses Not on filedocumented in this encounter Care Teams Resaw Operator Relationship Specialty Start Date End Date Parviz Lamb MD PCP - General 05/29/09 10/26/21 documented as of this encounter
--- OUTSIDE RECORDS SUMMARY | 2021-12-04 14:02 | XMS_ITS | Encounter Summary ---
:1955 Author Organization [facility] Address [address] [place] [address] Care Team Providers Name Role Phone Parviz Lamb MD Primary Care Provider Unavailable Viki Elaine Primary Care Provider [phone] Ewa Bynum MD Unavailable Vinay Mercado MD Unavailable Encounter Details Date Type Department Care Team Description 10/24/2021 Lab Requisition [facility] Outr Resulting Lab, Pathology & Laboratory Provider [facility] [address] [place] [address] Social History Tobacco Use Types Packs/Day Years Used Date Never Assessed Sex Assigned at Date Recorded Not on file documented as of this encounter Plan of Treatment Not on filedocumented as of this encounter Procedures Procedure Name Priority Date/Time Associated Diagnosis Comme nts ANTI THYROGLOBULIN Routine 10/24/2021 11:03 Resul ts for this EDT procedure are i n the results section. documented in this encounter Results ANTI THYROGLOBULIN (10/24/2021 11:03 EDT) Pathologist Sig nature Anti-Thyroglobulin 26 <=60 U/mL [facility] SERVICES Specimen Blood - Venous blood (substance) Performing Organization Address City/State/ZIP Code Phon e Number [facility] [address] [place] [address] SERVICES documented in this encounter Visit Diagnoses Not on filedocumented in this encounter Care Teams Coffee Break Attendant Relationship Specialty Start Date End Date Parviz Lamb MD PCP - General 05/29/09 10/26/21 Viki Elaine PA PCP - General 10/27/[address] [place] [address] [place] [address] Ewa Bynum MD Neurology 11/04/[address] [place] [address] 2 [place] [address] Vinay Mercado MD 11/04/[address] [place] [address] [address] [place], [place] [id number] documented as of this encounter
--- OUTSIDE RECORDS SUMMARY | 2021-12-04 14:02 | XMS_ITS | Encounter Summary ---
:1955 Author Organization [facility] Address [address] [place] [address] Care Team Providers Name Role Phone Parviz Lamb MD Primary Care Provider Unavailable Encounter Details Date Type Department Care Team Description 01/29/2002 Results Only [facility] - Carlos Pearce PA conversion [address] [place] [phone] [place] [id number] (Wo rk) Social History Tobacco Use Types Packs/Day Years Used Date Never Assessed Sex Assigned at Date Recorded Not on file documented as of this encounter Plan of Treatment Not on filedocumented as of this encounter Procedures Procedure Name Priority Date/Time Associated Diagnosis Comme nts CYTOPATHOLOGY Routine 01/29/2002 0:00 EST Results for this procedure are i n the results section . documented in this encounter Results CYTOPATHOLOGY (01/29/2002 0:00 EST) Pathology Report: CYTOPATHOLOGY REPORT [facility] Reports generated via electronic interface contain vaishnavi ginal data; however they are lacking the format of the original re port. Caution should be taken when reading/interpreting unfo rmatted reports. Name: ? LORIN CARDONA ? Accession #: ? [id number] : ? 1955 (Age: 47) ??F ?Collect Date: ? 01/08 Location: ? [facility] ? Receive Date : ? 02/02/2002 Provider: ?CARLOS WILEY Copy to: ? Specimen/Source: ?Conventional Pap Test, Eugenie rce Not Provided Last Menstrual Period: ? 01/06/02 ? SPECIMEN ADEQUACY ? Satisfactory for Evaluation - transformation zone component present GENERAL CATEGORIZATION ? Negative for Intraepithelial Lesion or Malignan cy INTERPRETATION ? Reactive cellular davon nges associated with inflammation present (includes repair). ? Document reviewed and electronically signed by: ? CAPO ORTIZ MD ? Report Date: ??02/06/2002 14:18 End of Report Specimen Performing Organization Address City/State/ZIP Code Phon e Number [facility] [address] [place] [address] SERVICES [facility] [address] [place] [address] documented in this encounter Visit Diagnoses Not on filedocumented in this encounter Care Teams Manual Tester Relationship Specialty Start Date End Date Parviz Lamb MD PCP - General 05/29/09 10/26/21 documented as of this encounter
--- OUTSIDE RECORDS SUMMARY | 2021-12-04 14:02 | XMS_ITS | Encounter Summary ---
:[address] [facility] Address [address] [place] [address] Care Team Providers Name Role Phone Parviz Lamb MD Primary Care Provider Unavailable Viki Elaine Primary Care Provider [phone] Ewa Bynum MD Unavailable Vinay Mercado MD Unavailable Encounter Details Date Type Department Care Team Description 09/22/2021 Lab Requisition [facility] Outr Resulting Lab, Pathology & Laboratory Provider [facility] [address] [place] [address] Social History Tobacco Use Types Packs/Day Years Used Date Never Assessed Sex Assigned at Date Recorded Not on file documented as of this encounter Plan of Treatment Not on filedocumented as of this encounter Procedures Procedure Name Priority Date/Time Associated Diagnosis Comme nts AST Routine 09/22/2021 9:58 EDT Results for this procedure are i n the results section . documented in this encounter Results AST (09/22/2021 9:58 EDT) Pathologist Sig nature AST 26 15 - 46 U/L [facility] LAB[facility] Y SERVICES Specimen Blood - Venous blood (substance) Performing Organization Address City/State/ZIP Code Phon e Number [facility] [address] [place] [address] SERVICES documented in this encounter Visit Diagnoses Not on filedocumented in this encounter Care Teams Remedial Project Manager Relationship Specialty Start Date End Date Parviz Lamb MD PCP - General 05/29/09 10/26/21 Viki Elaine PA PCP - General 10/27/[address] [place] [address] [place] [address] Ewa Bynum MD Neurology 11/04/[address] [place] [address], [facility] [address] [place] [address] Vinay Mercado MD 11/04/[address] [place] [address] [address] [place], [place] [phone] documented as of this encounter
--- OUTSIDE RECORDS SUMMARY | 2021-12-04 14:02 | XMS_ITS | Encounter Summary ---
:[address] [facility] Address [address] [place] [address] Care Team Providers Name Role Phone Parviz Lamb MD Primary Care Provider Unavailable Reason for Visit (Routine/Next Available) - Receiving Office to Obtain Authorization Specialty Diagnoses / Procedures Referred By Contact Refer red To Contact Procedures Unknown, Provider, MR OUTSIDE IMAGES NEURO Phone: Referral ID Status Reason Start Expiration Visits Visits Date Date Requested Authorized [id number] Receiving Office 10/27/2021 1 1 to Obtain Authorization Encounter Details Date Type Department Care Team Description 10/13/2021 Hospital Encounter [facility] Secondary Reads [place] Social History Tobacco [...] Diagnosis Comme nts MR OUTSIDE IMAGES Routine 10/13/2021 15:48 Result s for this NEURO EDT procedure are i n the results section. documented in this encounter Results MR OUTSIDE IMAGES NEURO (10/13/2021 15:48 EDT) Specimen Narrative 10/27/2021 15:49 EDT This is a non-reportable exam. documented in this encounter Visit Diagnoses Not on filedocumented in this encounter Care Teams Graphic Art Designer Relationship Specialty Start Date End Date Parviz Lamb MD PCP - General 05/29/09 10/26/21 documented as of this encounter
--- OUTSIDE RECORDS SUMMARY | 2021-12-04 14:02 | XMS_ITS | Encounter Summary ---
:1955 Author Organization [facility] Address [address] [place] [id number] Care Team Providers Name Role Phone Parviz Lamb MD Primary Care Provider Unavailable Encounter Details Date Type Department Care Team Description 01/24/2001 Results Only [facility] - Carlos Pearce PA conversion [address] [place] [phone] [place] [phone] (Wo rk) Social History Tobacco Use Types Packs/Day Years Used Date Never Assessed Sex Assigned at Date Recorded Not on file documented as of this encounter Plan of Treatment Not on filedocumented as of this encounter Procedures Procedure Name Priority Date/Time Associated Diagnosis Comme nts CYTOPATHOLOGY Routine 01/24/2001 0:00 EST Results for this procedure are i n the results section . documented in this encounter Results CYTOPATHOLOGY (01/24/2001 0:00 EST) Pathology Report: CYTOPATHOLOGY REPORT [facility] Reports generated via electronic interface contain vaishnavi ginal data; however they are lacking the format of the original re port. Caution should be taken when reading/interpreting unfo rmatted reports. Name: ? LORIN CARDONA ? Accession #: ? [id number] : ? 1955 (Age: 46) ??F ?Collect Date: ? 01/07 Location: ? [facility] ? Receive Date : ? 01/27/2001 Provider: ?CARLOS ORTEGA PA Copy to: ? Specimen/Source: ?Conventional Pap Test, Vag mary anne/Endocervix Last Menstrual Period: ? 18 days ago Other: ? Client ID#: MR# [id number] ? SPECIMEN ADEQUACY ? Satisfactory for evaluation. GENERAL CATEGORIZATION ? Within Normal Limits ? Document reviewed and electronically signed by: ? Selam Hood [facility]) ? Report Date: ??02/02/2001 09:53 End of Report Specimen Performing Organization Address City/State/ZIP Code Phon e Number [facility] [address] [place] [address] [facility] [address] [place] [address] documented in this encounter Visit Diagnoses Not on filedocumented in this encounter Care Teams Forensic Toxicologist Relationship Specialty Start Date End Date Parviz Lamb MD PCP - General 05/29/09 10/26/21 documented as of this encounter
== END 2021-12-04 13:51 | disposition home or self-care (01) ==
LOC: LBO 13:52
PROVIDERS: Visit Provider Internal Medicine
DX: C71.9 Malignant neoplasm of brain, unspecified (principal)
CPT/HCPCS: 36415; 80053; 80164; 82140; 85025

== ENCOUNTER 2021-12-08 12:32 | Outpatient (CLI) | payer MEDICARE, BC, SELFPAY ==
[2021-12-08 11:59] LABS: Abs Immature Grans 0.45 10^3/uL (0.0-0.06); Absolute Basophil Count 0.03 10^3/uL (0.0-0.2); Absolute Monocyte Count 0.61 10^3/uL (0.1-0.8); Basophils % 0.3; HCT 38.9 % (36.0-46.0); HGB 13.6 g/dL (11.2-15.7); Immature Grans % 4.1; Lymphocytes % 3.5; MCH 33.6 pg (27.0-33.0); MCV 96 fL (80-95); MPV 9.7 fL (8.0-11.0); Monocytes % 5.5; Neutrophils % 86.6; RBC 4.05 10^6/uL (3.93-5.22); RDW-SD 52.6 fL; WBC 11.01 10^3/uL (4.4-10.8)
[2021-12-08 12:02] LABS: Absolute Lymphocyte Count 0.39 10^3/uL (1.2-3.4); Absolute Neutrophil Count 9.53 10^3/uL (1.2-6.7)
[2021-12-08 12:06] LABS: Ammonia 24 umol/L (11-32)
[2021-12-08 12:12] LABS: Diff Comment Diff Reviewed; Platelet Count 95 10^3/uL (130-400); RBC Morphology Normal
[2021-12-08 12:20] LABS: ALT 39 U/L (14-59); AST 14 U/L (15-37); Alkaline Phosphatase 55 U/L (46-116); Anion Gap 7.5 mmol/L (3-11); BUN 17 mg/dL (7-18); Bilirubin, Total 0.4 mg/dL (0.2-1.0); CO2 28.5 mmol/L (21.0-32.0); CREATININE 0.5 mg/dL (0.55-1.02); Calcium 8.4 mg/dL (8.5-10.1); Chloride 102 mmol/L (98-107); Glucose 88 mg/dL (74-106); Sodium 138 mmol/L (136-145); VALPROIC ACID 62.6 ug/mL
== END 2021-12-08 12:33 | disposition home or self-care (01) ==
LOC: LBO 12:34
PROVIDERS: Visit Provider Internal Medicine
DX: C71.9 Malignant neoplasm of brain, unspecified (principal)
CPT/HCPCS: 36415; 80053; 80164; 82140; 85025

== ENCOUNTER 2021-12-10 03:03 | Outpatient (CLI) | payer MEDICARE, BC, SELFPAY ==
[2021-12-10 12:21] LABS: HCT 38.5 % (36.0-46.0); HGB 13.4 g/dL (11.2-15.7); MCH 33.8 pg (27.0-33.0); MCHC 34.8 % (32.0-36.0); MCV 97 fL (80-95); MPV 9.9 fL (8.0-11.0); RBC 3.96 10^6/uL (3.93-5.22); RDW 14.9 % (11.7-14.6); RDW-SD 53.5 fL; WBC 9.82 10^3/uL (4.4-10.8)
[2021-12-10 12:28] LABS: Ammonia 29 umol/L (11-32)
[2021-12-10 12:34] LABS: VALPROIC ACID 53.4 ug/mL
[2021-12-10 12:47] LABS: Platelet Count 84 10^3/uL (130-400)
[2021-12-10 12:48] LABS: Absolute Lymphocyte Count 0.49 10^3/uL (1.2-3.4); Absolute Monocyte Count 0.39 10^3/uL (0.1-0.8); Absolute Neutrophil Count 8.94 10^3/uL (1.2-6.7); Atypical Lymphocytes % 2; Bands % 10; Diff Comment Manual Differential; RBC Morphology Normal
[2021-12-10 13:10] LABS: ALT 40 U/L (14-59); AST 18 U/L (15-37); Albumin 2.9 g/dL (3.4-5.0); Alkaline Phosphatase 57 U/L (46-116); Anion Gap 8.4 mmol/L (3-11); BUN 16 mg/dL (7-18); Bilirubin, Total 0.4 mg/dL (0.2-1.0); CO2 27.6 mmol/L (21.0-32.0); CREATININE 0.5 mg/dL (0.55-1.02); Calcium 8.3 mg/dL (8.5-10.1); Chloride 101 mmol/L (98-107); Glucose 91 mg/dL (74-106); Potassium 4.2 mmol/L (3.5-5.1); Sodium 137 mmol/L (136-145)
== END 2021-12-10 03:04 | disposition home or self-care (01) ==
LOC: LBO 03:03
PROVIDERS: Visit Provider Internal Medicine
DX: C71.9 Malignant neoplasm of brain, unspecified (principal)
CPT/HCPCS: 36415; 80053; 80164; 82140; 85025

== ENCOUNTER 2021-12-15 03:47 | Outpatient (CLI) | payer MEDICARE, BC, SELFPAY ==
[2021-12-15 11:14] LABS: HCT 38.9 % (36.0-46.0); HGB 13.3 g/dL (11.2-15.7); MCH 33.3 pg (27.0-33.0); MCHC 34.2 % (32.0-36.0); MCV 98 fL (80-95); MPV 9.3 fL (8.0-11.0); Platelet Count 92 10^3/uL (130-400); RBC 3.99 10^6/uL (3.93-5.22); RDW 15.3 % (11.7-14.6); RDW-SD 54.4 fL; WBC 10.42 10^3/uL (4.4-10.8)
[2021-12-15 11:23] LABS: Ammonia 15 umol/L (11-32)
[2021-12-15 11:27] LABS: VALPROIC ACID 55.9 ug/mL
[2021-12-15 11:29] LABS: ALT 50 U/L (14-59); AST 19 U/L (15-37); Alkaline Phosphatase 64 U/L (46-116); Anion Gap 7.6 mmol/L (3-11); BUN 17 mg/dL (7-18); Bilirubin, Total 0.4 mg/dL (0.2-1.0); CO2 28.4 mmol/L (21.0-32.0); CREATININE 0.5 mg/dL (0.55-1.02); Calcium 8.4 mg/dL (8.5-10.1); Chloride 99 mmol/L (98-107); Glucose 97 mg/dL (74-106); Sodium 135 mmol/L (136-145); Total Protein 6.1 g/dL (6.4-8.2)
[2021-12-15 11:35] LABS: Absolute Lymphocyte Count 0.52 10^3/uL (1.2-3.4); Absolute Monocyte Count 0.52 10^3/uL (0.1-0.8); Absolute Neutrophil Count 9.38 10^3/uL (1.2-6.7); Bands % 7; Diff Comment Manual Differential; RBC Morphology Normal
== END 2021-12-15 03:48 | disposition home or self-care (01) ==
LOC: LBO 03:47
PROVIDERS: Visit Provider Internal Medicine
DX: C71.9 Malignant neoplasm of brain, unspecified (principal)
CPT/HCPCS: 36415; 80053; 80164; 82140; 85025

== ENCOUNTER 2021-12-18 12:14 | Outpatient (CLI) | payer MEDICARE, BC, SELFPAY ==
[2021-12-18 12:05] LABS: HCT 39.6 % (36.0-46.0); HGB 13.4 g/dL (11.2-15.7); MCH 33.3 pg (27.0-33.0); MCHC 33.8 % (32.0-36.0); MCV 99 fL (80-95); MPV 9.5 fL (8.0-11.0); Platelet Count 103 10^3/uL (130-400); RBC 4.02 10^6/uL (3.93-5.22); RDW 15.8 % (11.7-14.6); WBC 8.58 10^3/uL (4.4-10.8)
[2021-12-18 12:20] LABS: VALPROIC ACID 61.5 ug/mL
[2021-12-18 12:24] LABS: ALT 45 U/L (14-59); AST 17 U/L (15-37); Albumin 3.2 g/dL (3.4-5.0); Alkaline Phosphatase 63 U/L (46-116); Anion Gap 4.7 mmol/L (3-11); BUN 19 mg/dL (7-18); Bilirubin, Total 0.5 mg/dL (0.2-1.0); CO2 31.3 mmol/L (21.0-32.0); CREATININE 0.6 mg/dL (0.55-1.02); Calcium 8.4 mg/dL (8.5-10.1); Chloride 99 mmol/L (98-107); Estimated GFR 97.71 (mL/min/1.73m2); Glucose 100 mg/dL (74-106); Potassium 4.5 mmol/L (3.5-5.1); Sodium 135 mmol/L (136-145); Total Protein 6.4 g/dL (6.4-8.2)
[2021-12-18 12:26] LABS: Ammonia 16 umol/L (11-32)
[2021-12-18 12:29] LABS: Absolute Lymphocyte Count 0.86 10^3/uL (1.2-3.4); Absolute Monocyte Count 0.43 10^3/uL (0.1-0.8); Absolute Neutrophil Count 7.21 10^3/uL (1.2-6.7); Atypical Lymphocytes % 1; Bands % 4; Diff Comment Manual Differential; Metamyelocytes % 1; RBC Morphology Normal
== END 2021-12-18 12:15 | disposition home or self-care (01) ==
LOC: LBO 12:15
PROVIDERS: Visit Provider Internal Medicine
DX: C71.9 Malignant neoplasm of brain, unspecified (principal); Z51.81 Encounter for therapeutic drug level monitoring; Z79.899 Other long term (current) drug therapy
CPT/HCPCS: 36415; 80053; 80164; 82140; 85025